=== PATIENT | male | born 1940 | race Caucasian/White ===

== ENCOUNTER 2017-06-09 14:56 | Inpatient (IN) | payer MEDICARE, OTHER ==
[~2017-06-09] VITALS: Ht 157.5 cm; Wt 128.3 kg
[2017-06-09] VITALS (9 sets, daily range): BP systolic 102–170; BP diastolic 57–109; PULSE 70–80; RESP 14–18; TEMP 97.9; O2SAT 96–98
[~2017-06-09 14:56] MED LIST: ACET325 PO; ALUM5LIQ PO; ARIC10TA PO; B-12500T3 PO; BISA10SU8 PR; BROV15NE NEB; BUDE0.5S NEB; CARB0.5D16 EACH EYE; DUONI NEB; FLEEENE3 PR; HALO0.5T PO; LISI-360 PO; LOPE1TAB9 PO; LORA-392 PO; LOVA20TA PO; MAGN30S PO; MONT10TA2 PO; OMEP20TA PO; PROC1TAB8 PO; SALI0.652 EACH NARE; TRAZ50TA4 PO; VITA100017 PO; VITA20002 PO; WAL-10TA2 PO
[2017-06-09] MEDS ORDERED: SODIUM CHLOR 0.9% 1000 ML INJ 1,000 ML IV ONE (14:59)
--- NOTE | 2017-06-09 15:05 | PD ---
HPI Chief Complaint: stroke alert Time Seen by Provider: 14:59 Travel History International Travel<30 days: No Contact w/Intl Traveler<30days: No History of Present Illness HPI The patient arrives by EMS. Age 77. He was found to be weak in the left side and to have a left facial droop and have disorganized speech. EMS reports weakness in the left upper extremity and left facial droop. Patient was last seen normal 1 hour prior to ER arrival. Timing constant. Onset sudden. No modifying factor. Patient has a history of prostate cancer and bladder cancer with a urostomy and possible history of atrial fibrillation however takes no anticoagulants. Evidently patient lives in an CUSTODIAL due to incontinence. PFSH Past Medical History Anemia: Yes Arthritis: No Asthma: No Atrial Fibrillation: Yes Blood Disorders: No Heart Rhythm Problems: No Cancer: Yes (, prostate) Cardiovascular Problems: No High Cholesterol: No Chemotherapy: No Chest Pain: No Congestive Heart Failure: No COPD: No Cerebrovascular Accident: No Diabetes: No Diminished Hearing: Yes Endocrine: No GERD: No Glaucoma: No Genitourinary: Yes (INABILITY TO URINATE.urostomy) Headaches: No Hepatitis: No Hiatal Hernia: No Hypertension: Yes Immune Disorder: No Kidney Stones: No Musculoskeletal: No Neurologic: No Psychiatric: No Reproductive: No Respiratory: Yes (SLEEP APNEA) Migraines: No Radiation Therapy: No Renal Failure: No Seizures: No Sleep Apnea: Yes Thyroid Disease: No Ulcer: No Past Surgical History Abdominal Surgery: Yes (HERNIA, PARTIAL COLON REMOVAL) Appendectomy: No Cardiac Surgery: No Cholecystectomy: No Ear Surgery: No Endocrine Surgery: No Eye Surgery: No Genitourinary Surgery: Yes (REPEATED BLADDER SCRAPINGS, PROSTATECTOMY AND BLADDER REMOVED) Gynecologic Surgery: No Oral Surgery: No Pacemaker: No Thoracic Surgery: No Other Surgery: Yes (UROSTOMY PLACEMENT) Social History Alcohol Use: No Tobacco Use: No Substance Use: No Allergies-Medications (Allergen,Severity, Reaction): Coded Allergies: penicillin G (Unverified Allergy, Severe, as a child, 01/24/17) Reported Meds & Prescriptions Reported Meds & Active Scripts Active Reported Budesonide Neb 0.5 Mg/2 Ml Neb 0.5 Mg NEB Q12HR NEB Lisinopril 10 Mg Tab 10 Mg PO DAILY Singulair (Montelukast Sodium) 10 Mg Tab 10 Mg PO HS Lovastatin 20 Mg Tab 20 Mg PO DAILY Maalox Maximum Strength Susp (Mag Hydrox/Aluminum Hyd/Simeth) 400 Mg-400 Mg-40 Mg/5 Ml Oral.susp Proventil Hfa 6.7 GM Inh (Albuterol Sulfate) 90 Mcg/Act Aer 2 Puff INH Q6H PRN Vitamin D3 (Cholecalciferol) 1,000 Unit Cap 1,000 Units PO DAILY Vitamin C (Ascorbic Acid) 250 Mg Chew 500 Mg CHEW BID Vitamin B-12 (Cyanocobalamin) 1,000 Mcg Subl 1,000 Mcg SL DAILY Reguloid (Psyllium Hydrophilic Mucilloid) 48.57 % Pow Quetiapine (Quetiapine Fumarate) 25 Mg Tab 25 Mg PO BID Omeprazole 20 Mg Tab 20 Mg PO DAILY Namzaric (Memantine-Donepezil) 28-10 Mg Cap 1 Cap PO HS Trazodone (Trazodone HCl) 50 Mg Tab 50 Mg PO HS Polyethylene Glycol 3350 Powder (Polyethylene Glycol) 17 Gram Pow 17 Gm PO DAILY PRN Milk of Magnesia Liq (Magnesium Hydroxide) 400 Mg/5 Ml Susp 30 Ml PO Q6H PRN Lorazepam 0.5 Mg Tab 0.5 Mg PO Q8H PRN Claritin (Loratadine) 10 Mg Cap 10 Mg PO DAILY Imodium A-D (Loperamide HCl) 2 Mg Capsule 4 Mg PO DIRECTED PRN One capsule after each loose stool. Not to exceed 8 tablets per day. Review of Systems Except as stated in HPI: all other systems reviewed are Neg General / Constitutional: No: Fever Physical Exam Narrative GENERAL: 77-year-old male well-nourished well-developed SKIN: Warm and dry. HEAD: Atraumatic. Normocephalic. EYES: Pupils equal and round. No scleral icterus. No injection or drainage. ENT: No nasal bleeding or discharge. Mucous membranes pink and moist. NECK: Trachea midline. No JVD. CARDIOVASCULAR: Regular rate and rhythm. RESPIRATORY: No accessory muscle use. Clear to auscultation. Breath sounds equal bilaterally. GASTROINTESTINAL: Abdomen soft, non-tender, nondistended. Hepatic and splenic margins not palpable. MUSCULOSKELETAL: Extremities without clubbing, cyanosis, or edema. No obvious deformities. NEUROLOGICAL: There is facial droop on the left side. There is left arm weakness, 2 over 5. Right upper and right lower extremity normal. Left lower extremity weakness to her 5 present. Patient can speak yes and no clearly. PSYCHIATRIC: Appropriate mood and affect; insight and judgment normal. Data Data Last Documented VS Vital Signs Date Time Temp Pulse Resp B/P (MAP) Pulse Ox O2 Delivery O2 Flow Rate FiO2 06/09/17 16:45 80 14 109/59 (76) 96 Nasal Cannula 2.00 Orders Orders Diet Npo (06/09/17 Dinner) Activity Bed Rest (06/09/17 ) Electrocardiogram (06/09/17 ) I-Stat Creatinine (06/09/17 14:59) I-Stat Profile (06/09/17 14:59) Prothrombin Time / Inr (Pt) (06/09/17 14:59) Act Partial Throm Time (Ptt) (06/09/17 14:59) Complete Blood Count With Diff (06/09/17 14:59) Fibrinogen (06/09/17 14:59) Creatine Kinase (Cpk) (06/09/17 14:59) Troponin I (06/09/17 14:59) Ua Includes Microscopic (06/09/17 14:59) Drug Screen, Random Urine (06/09/17 14:59) Type And Screen (06/09/17 14:59) Ct Brain W/O Iv Contrast(Rout) (06/09/17 ) Consult Neurology (06/09/17 ) Blood Glucose (06/09/17 14:59) Ecg Monitoring (06/09/17 14:59) Neuro Checks Q2HX12,Q4H (06/09/17 14:59) Nursing Bedside Swallow Assess .ONCE (06/09/17 14:59) Iv Access Insert/Monitor (06/09/17 14:59) NPO (06/09/17 14:59) Oximetry (06/09/17 14:59) Oxygen Administration (06/09/17 14:59) Sodium Chlor 0.9% 1000 Ml Inj (Ns 1000 M (06/09/17 14:59) Resp Oxygen Chase C Titrat 1-4 L (06/09/17 14:59) Cath For Specimen (06/09/17 14:59) Cta Brain W Iv Contrast W 3d (06/09/17 15:05) Cta Neck W Iv Contrast W 3d (06/09/17 15:05) ^ Call Pharmacy (06/09/17 15:09) Nih Stroke Scale - Nihss .ONCE (06/09/17 15:09) Urinary Catheter Insert/Apply (06/09/17 15:09) Anticoagulant Alert (06/09/17 15:09) ^ Post Infusion Restrictions (06/09/17 15:09) ^ Medication Alert (06/09/17 15:09) Vital Signs (Adult) .As directed (06/09/17 15:09) Notify Dr: Blood Pressure (06/09/17 15:09) ^ Medication Alert (06/09/17 15:09) Alteplase Bolus (Activase Bolus) (06/09/17 15:15) Alteplase Drip (Activase Drip) (06/09/17 15:15) Sodium Chloride 0.9% Inj (Ns Inj) (06/09/17 15:15) Misc Nursing Information (06/09/17 15:15) Resp Oxygen Chase C Titrat 1-4 L (06/09/17 ) Ct Brain W/O Iv Contrast(Rout) (06/10/17 ) (Hub Use Only)In Phy Cons/Ref (06/09/17 ) Iohexol 350 Inj (Omnipaque 350 Inj) (06/09/17 15:24) Nih Stroke Scale - Nihss .As directed (06/09/17 16:12) Hemoglobin (Hgb) A1c (06/10/17 06:00) Lipid Profile (06/10/17 06:00) Consult Pt Eval & Treat (06/09/17 16:12) Ot Request For Service (06/09/17 16:12) Speech Therapy Consult-Eval/Tx (06/09/17 16:12) Consult Rehab Medicine (06/09/17 ) Case Management Consult (06/09/17 ) Scd Bilateral/Knee High TONE.QSHIFT (06/09/17 16:13) Sodium Chloride 0.9% Flush (Ns Flush) (06/09/17 21:00) Sodium Chloride 0.9% Flush (Ns Flush) (06/09/17 16:15) Consult Stroke Navigator (06/09/17 ) Echo 2d Comp With Doppler (06/09/17 ) (Hub Use Only)Inp Phy Cons/Ref (06/09/17 ) Admit Order (Ed Use Only) (06/09/17 ) Black Puller / Telemetry TONE.Q8H (06/09/17 17:42) Vital Signs (Adult) Q4H (06/09/17 17:42) Activity Oob With Assistance (06/09/17 17:42) Labs Laboratory Tests Test 06/09/17 15:00 06/09/17 15:47 White Blood Count 9.7 TH/MM3 Red Blood Count 4.28 MIL/MM3 Hemoglobin 13.3 GM/DL Bedside Hemoglobin 13.9 G/DL Hematocrit 40.2 % Bedside Hematocrit 41.0 % Mean Corpuscular Volume 94.0 FL Mean Corpuscular Hemoglobin 31.1 PG Mean Corpuscular Hemoglobin Concent 33.1 % Red Cell Distribution Width 14.1 % Platelet Count 162 TH/MM3 Mean Platelet Volume 9.2 FL Neutrophils (%) (Auto) 68.3 % Lymphocytes (%) (Auto) 16.6 % Monocytes (%) (Auto) 12.1 % Eosinophils (%) (Auto) 2.1 % Basophils (%) (Auto) 0.9 % Neutrophils # (Auto) 6.6 TH/MM3 Lymphocytes # (Auto) 1.6 TH/MM3 Monocytes # (Auto) 1.2 TH/MM3 Eosinophils # (Auto) 0.2 TH/MM3 Basophils # (Auto) 0.1 TH/MM3 CBC Comment DIFF FINAL Differential Comment Prothrombin Time 10.4 SEC Prothromb Time International Ratio 1.0 RATIO Activated Partial Thromboplast Time 23.6 SEC Fibrinogen 424 mg/dL Bedside Sodium 138 MMOL/L Bedside Potassium 4.9 MMOL/L Bedside Chloride 97 MMOL/L Bedside Blood Urea Nitrogen 25 MG/DL Bedside Creatinine 1.4 MG/DL Bedside Glucose 134 MG/DL Total Creatine Kinase 125 U/L Troponin I LESS THAN 0.02 NG/ML Urine Color LIGHT-YELLOW Urine Turbidity HAZY Urine pH 7.5 Urine Specific [place] 1.043 Urine Protein TRACE mg/dL Urine Glucose (UA) NEG mg/dL Urine Ketones NEG mg/dL Urine Occult Blood TRACE Urine Nitrite NEG Urine Bilirubin NEG Urine Urobilinogen LESS THAN 2.0 MG/DL Urine Leukocyte Esterase LARGE Urine RBC 9 /hpf Urine WBC /hpf Urine WBC Clumps FEW Urine Bacteria OCC /hpf Urine Opiates Screen NEG Urine Barbiturates Screen NEG Urine Amphetamines Screen NEG Urine Benzodiazepines Screen NEG Urine Cocaine Screen NEG Urine Cannabinoids Screen NEG MDM Medical Screen Exam Complete: Yes Emergency Medical Condition: Yes Differential Diagnosis Ischemic stroke, hemorrhagic stroke, complex migraine Narrative Course Patient has an ischemic stroke. TPA started. Estimated NIH stroke scale of 67. Case discussed with Dr Martins. Case d/w Dr Coronel. CBC & BMP Diagram 06/09/17 15:00 Last Impressions Neck CTA 06/09/17 1505 Signed Impressions: Service Date/Time: Friday, June 09, 2017 15:04 - CONCLUSION: Total occlusion of the right internal carotid artery in the neck. Left carotid is free of stenosis. Vertebrals are patent bilaterally with incidental direct origin of the left vertebral artery from the aortic arch. Chaparro Mora MD Head CTA 06/09/17 1505 Signed Impressions: Service Date/Time: Friday, June 09, 2017 15:04 - CONCLUSION: 1. Occluded distal cervical and petrous segment of the right internal carotid artery. 2. Decreased flow in the right middle cerebral artery. 3. No evidence of proximal vascular occlusive disease involving the intracranial vessels. Cristian Holguin MD Head CT 06/09/17 0000 Signed Impressions: Service Date/Time: Friday, June 09, 2017 14:58 - CONCLUSION: No acute adrenal findings. Chaparro Mora MD Critical Care Narrative Aggregate critical care time was 50 minutes. Time to perform other separately billable procedures was not included in the critical care time. My time did not include minutes spent treating any other patients simultaneously or on activities that did not directly contribute to the patient's treatment. The services I provided to this patient were to treat and/or prevent clinically significant deterioration that could result in: Permanent deficit, intracranial hemorrhage I provided critical care services requiring my management, as noted below: Chart data review, documentation time, medication orders and management, vital sign assessments/reviewing monitor data, ordering and reviewing lab tests, ordering and interpreting/reviewing x-rays and diagnostic studies, care of the patient and discussion of the patient with the admitting physicians. Stroke Alert NIHSS NIH Stroke Scale Result: 7 NIHSS Time Completed: 07:00 Diagnosis Diagnosis: Primary Impression: CVA (cerebral vascular accident) Qualified Codes: I63.9 - Cerebral infarction, unspecified Additional Impression: Carotid occlusion, right Admitting Physician Requests: Admit Wilfredo Lopez MD Jun 09, 2017 15:05
[2017-06-09] MEDS ORDERED: MISCELLANEOUS NURSING INFORMATION XX PRN (15:15)
[2017-06-09] MEDS ORDERED: ALTEPLASE BOLUS 9 MG/9 ML SYR IV ONE (15:15)
[2017-06-09] MEDS ORDERED: ALTEPLASE DRIP 81 MG in SYRINGE/BAG 1 EA IV ONE (15:15)
[2017-06-09] MEDS ORDERED: SODIUM CHLORIDE 0.9% 50 ML BAG IVF ONE (15:15)
--- NOTE | 2017-06-09 15:17 | RADRPT ---
EXAM DATE/TIME: 06/09/2017 14:58 [facility] COMPARISON: No previous studies available for comparison. INDICATIONS : Stroke alert,Left sided weakness, slurred speech. RADIATION DOSE: 69.15 CTDIvol (mGy) This report was called by Morgan to Dr Lopez at 1513 MEDICAL HISTORY : Cardiovascular disease. Hypertension. A Fib, ca prostate SURGICAL HISTORY : None. ENCOUNTER: Initial ACUITY: 2 days PAIN SCALE: Non-responsive LOCATION: cranial TECHNIQUE: Multiple contiguous axial images were obtained of the head. Using automated exposure control and adj ustment of the mA and/or kV according to patient size, radiation dose was kept as low as reasonably a chievable to obtain optimal diagnostic quality images. DICOM format image data is available electro nically for review and comparison. FINDINGS: CEREBRUM: The ventricles are normal for age. No evidence of midline shift, mass lesion, hemorrhage or acute in farction. No extra-axial fluid collections are seen. POSTERIOR FOSSA: The cerebellum and brainstem are intact. The 4th ventricle is midline. The cerebellopontine angle i s unremarkable. EXTRACRANIAL: The visualized portion of the orbits is intact. SKULL: The calvaria is intact. No evidence of skull fracture. CONCLUSION: No acute adrenal findings. Chaparro Mora MD on June 09, 2017 at 15:12 Board Certified Radiologist. This report was verified electronically.
[2017-06-09 15:19] LABS: AUTOMATED NEUTROPHIL # 6.6 TH/MM3 (1.8-7.7); BASOPHIL # 0.1 TH/MM3 (0-0.2); BASOPHIL % 0.9 % (0.0-2.0); EOSINOPHIL # 0.2 TH/MM3 (0-0.4); EOSINOPHIL % 2.1 % (0.0-4.0); HEMATOCRIT 40.2 % (39.0-51.0); HEMOGLOBIN 13.3 GM/DL (13.0-17.0); LYMPH % 16.6 % (9.0-44.0); LYMPHOCYTE # 1.6 TH/MM3 (1.0-4.8); MEAN CORPUSCULAR HEMOGLOBIN 31.1 PG (27.0-34.0); MEAN CORPUSCULAR HGB CONC 33.1 % (32.0-36.0); MEAN PLATELET VOLUME 9.2 FL (7.0-11.0); MONO % 12.1 % (0.0-8.0); MONOCYTE # 1.2 TH/MM3 (0-0.9); NEUT % 68.3 % (16.0-70.0); PLATELET COUNT 162 TH/MM3 (150-450); RED BLOOD COUNT 4.28 MIL/MM3 (4.50-5.90); RED CELL DISTRIBUTION WIDTH 14.1 % (11.6-17.2); WHITE BLOOD COUNT 9.7 TH/MM3 (4.0-11.0)
[2017-06-09] MEDS ORDERED: IOHEXOL 350 MG/ML 10 ML VIAL (for RAD DIAG) IVCONTRAST ONE (15:24)
[2017-06-09 15:32] LABS: PROTHROMBIN TIME - PATIENT 10.4 SEC (9.8-11.6)
[2017-06-09 15:43] LABS: TROPONIN I LESS THAN 0.02 NG/ML (0.02-0.05)
--- NOTE | 2017-06-09 15:54 | RADRPT ---
EXAM DATE/TIME: 06/09/2017 15:04 [facility] COMPARISON: No previous studies available for comparison. INDICATIONS : Stroke alert, left sided weakness, slurred speech. IV CONTRAST: 75 cc Omnipaque 350 (iohexol) IV ; Cumulative dose for multiple exams. RADIATION DOSE: 137.36 CTDIvol (mGy) ; Combined studies MEDICAL HISTORY : Cardiovascular disease. Hypertension. a FIB SURGICAL HISTORY : None. ENCOUNTER: Initial ACUITY: 1 day PAIN SCALE: 0/10 LOCATION: cranial TECHNIQUE: Volumetric scanning was performed using a multi-row detector CT scanner. The data was post processed with a variety of visualization algorithms including full volume maximum intensity projection, multi -planar sliding thin slab reformation, curved planar reformation, and surface rendering techniques. Using automated exposure control and adjustment of the mA and/or kV according to patient size, radiat ion dose was kept as low as reasonably achievable to obtain optimal diagnostic quality images. DICO M format image data is available electronically for review and comparison. FINDINGS: There is excellent visualization of the major intracranial arteries out to the second-order branch ve ssels. Scratch that The distal cervical and petrous segment of the right internal carotid artery are occluded. The intrac ranial segment of the right internal carotid artery reconstitutes in the cavernous segment. Relative decreased flow was identified in the right no cerebral artery. The intracranial vessels are otherwise patent without proximal destructive disease or intraluminal filling defects. Vertebral basilar circulation is patent. CONCLUSION: 1. Occluded distal cervical and petrous segment of the right internal carotid artery. 2. Decreased flow in the right middle cerebral artery. 3. No evidence of proximal vascular occlusive disease involving the intracranial vessels. Cristian Holguin MD on June 09, 2017 at 15:46 Board Certified Radiologist. This report was verified electronically.
--- NOTE | 2017-06-09 16:08 | RADRPT ---
EXAM DATE/TIME: 06/09/2017 15:04 [facility] COMPARISON: No previous studies available for comparison. INDICATIONS : Stroke alert, left sided weakness, slurred speech. IV CONTRAST: 100 cc Visipaque (iodixanol) IV RADIATION DOSE: 137.36 CTDIvol (mGy) ; Patient body habitus MEDICAL HISTORY : Cardiovascular disease. Hypertension. Afib, ca prostate SURGICAL HISTORY : None. ENCOUNTER: Initial ACUITY: 1 day PAIN SCALE: 0/10 LOCATION: neck Elevated flow velocities and ICA/CCA ratios have been found to correlate with increased degrees of vessel stenosis, calculated as percentage of diameter relative to a normal segment of distal ICA/CCA. TECHNIQUE: Volumetric scanning was performed using a multirow detector CT scanner. The data was post processed with a variety of visualization algorithms including full-volume maximum intensity projection, multip lanar sliding thin-slab reformation, curved-planar reformation, and surface-rendering techniques. Us ing automated exposure control and adjustment of the mA and/or kV according to patient size, radiatio n dose was kept as low as reasonably achievable to obtain optimal diagnostic quality images. DICOM f ormat image data is available electronically for review and comparison. FINDINGS: AORTIC ARCH: Variant arch anatomy is identified with direct origin of the left vertebral artery from the aortic ar ch. The arch vessels appear widely patent. RIGHT CAROTID: The right internal carotid artery is totally occluded at its origin. Flow appears to reconstitute in the supraclinoid carotid. See report of [facility] [place] [facility] [place] for additional details. LEFT CAROTID: The left carotid bifurcation is notable for minimal intimal calcification. No significant stenotic na rrowing. Left ICA is widely patent throughout. VERTEBRALS: The vertebral arteries have a symmetric diameter. No stenotic lesions are seen. CONCLUSION: Total occlusion of the right internal carotid artery in the neck. Left carotid is free of stenosis. V ertebrals are patent bilaterally with incidental direct origin of the left vertebral artery from the aortic arch. Chaparro Mora MD on June 09, 2017 at 16:03 Board Certified Radiologist. This report was verified electronically.
[2017-06-09] MEDS ORDERED: SODIUM CHLORIDE 0.9% FLUSH 10 ML FLUSH IV FLUSH PRN (16:15)
[2017-06-09 16:16] LABS: BACTERIA, URINE OCC /hpf; BILIRUBIN, URINE NEG (NEG); BLOOD, URINE TRACE (NEG); GLUCOSE,URINE NEG (NEG); KETONE, URINE NEG (NEG); NITRITE,URINE NEG (NEG); PH, URINE 7.5 (5.0-8.5); URINE COLOR LIGHT-YELLOW (YELLW/STRAW); URINE LEUKOCYTE ESTERASE LARGE (NEG); WHITE BLOOD CELL CLUMPS FEW
--- NOTE | 2017-06-09 17:13 | MB ---
cc: BRIJESH POLK M.D. DATE OF CONSULTATION: 06/09/2017 DATE OF : 1940, 77 years old. REASON FOR CONSULTATION: Stroke HISTORY: This is a pleasant 77-year-old man found to be weak, he lives in a [facility] on the left side with facial droop brought in, he was 1 hour prior to arrival onset. Was found by staff here in the hospital as well as with left-sided hemiparesis. The patient had a head CT of the brain and given his symptoms was started on TPA. He received his bolus and now he is getting his maintenance infusion. He has a history of prostate cancer, bladder cancer. He has a urostomy questionable history of Atrial fibrillation, sleep apnea. Maybe some mild cognitive impairment. Apparently states he was a [facility] per chart notes. He has been there for a few years because of his bladder issues. MEDICATIONS: Please refer to his EMR. But he is on multiple medications, in looking at his list I do not see any antiplatelets. He is on Aricept <<1:44>> B12 Budesonide inhalation Ativan as needed Haldol 1/2 mg daily. Lisinopril Loratadine Compazine. SOCIAL HISTORY Does not smoke, drink or use drugs. ALLERGIES PENICILLIN PHYSICAL EXAMINATION: VITAL SIGNS: Temperature not taken, pulse 72, respiratory rate 14, blood pressure 161/70 satting at 97% room air. NECK: The neck is supple. HEART: The heart is regular. CHEST: Lungs are distant. . NEUROLOGIC: He is awake and alert, his speech to me is fluent. His pupils reactive. His face is symmetrical. Tongue is midline. Visual lopez are full. Motor dc he has minimal weakness now on the left upper extremity with mild drift. There is no significant leg lag. DTRs are trace to 1+. Toes withdraws. Sensory can feel light touch and temperature left-sided right side is intact. Cerebellar normal gait is withheld at this time. LABORATORY FINDINGS: Labs are reviewed. His CBC hemoglobin 13.3 white count 9.7, platelets 162,000. His chemistries are reviewed. His BUN is in his 25, creatinine 1.4, glucose 134. Cardiac enzymes negative. CK 125. Coag panel is unremarkable. Toxicology is pending. His urine is pending. IMAGING STUDIES CT of the head did not show anything that acute. Head CTA however, showed occluded distal cervical and <<3:27>> segment of the right ICA also decreased lower right MCA. No evidence of proximal vascular occlusion. His carotid CTA report is still pending. IMPRESSION Left hemiparesis likely due to stroke in a 77-year-old man with multiple risk factors. RECOMMENDATIONS: Recommendations are to continue his TPA, since he is improving. There was no contraindication to giving it fortunately he was in a window of opportunity, check a lipid panel, check hemoglobin A1c. We will check an MRI tomorrow, a 2-D echo. Maintain SCDs. No antiplatelets, no anticoagulation for [address] 24 hours, post TPA stat should his condition worsen. PT, OT, speech therapy evaluation, fluids normal saline 70 cc an hour, head of bed flat for 24 hours if he can tolerate, he is a fairly large man with a small neck he may have trouble breathing and so go ahead and put him at 30 degrees. He does have a history of sleep apnea. He has C-PAP, please restart his C-PAP, I will have respiratory do that. Continue post TPA orders and consults to <<4:58>> . MD KITA Mahoney/isiah /3:56 PM /4:34 PM
[2017-06-09] MEDS ORDERED: MILKSUS PO (17:50)
[2017-06-09] MEDS ORDERED: VITA250C3 CHEW (17:50)
[2017-06-09] MEDS ORDERED: MAALSUS17 (17:50)
[2017-06-09] MEDS ORDERED: CLAR10CA3 PO (17:50)
[2017-06-09] MEDS ORDERED: REGU50PO (17:50)
[2017-06-09] MEDS ORDERED: BUDE0.5S NEB (17:50)
[2017-06-09] MEDS ORDERED: VITA100021 SL (17:50)
[2017-06-09] MEDS ORDERED: ALBU6.7H INH (17:50)
[2017-06-09] MEDS ORDERED: CHOL10008 PO (17:50)
[2017-06-09] MEDS ORDERED: POLY17S PO (17:50)
[2017-06-09] MEDS ORDERED: OMEP20TA93 PO (17:50)
[2017-06-09] MEDS ORDERED: LOPE-1 PO (17:50)
[2017-06-09] MEDS ORDERED: LISI10TA3 PO (17:50)
[2017-06-09] MEDS ORDERED: LORA0.5T PO (17:50)
[2017-06-09] MEDS ORDERED: TRAZ50TA12 PO (17:50)
[2017-06-09] MEDS ORDERED: MEMA1CAP2 PO (17:50)
[2017-06-09] MEDS ORDERED: MONT10TA2 PO (17:50)
[2017-06-09] MEDS ORDERED: LOVA20TA PO (17:50)
[2017-06-09] MEDS ORDERED: QUET1TAB7 PO (17:50)
[2017-06-09] MEDS: SODIUM CHLOR 0.9% 1000 ML INJ 1,000 ML IV SCH (17:51)
--- NOTE | 2017-06-09 17:53 | HHI.HP ---
[facility] Service Critical Care Medicine Primary Care Physician David Lopez M.D. Admission Diagnosis Ischemic CVA Diagnosis: Chief Complaint: Left arm weakness Travel History International Travel<30 Days: No Contact w/Intl Traveler <30 Da: No History of Present Illness This is a 77-year-old male with history of prostate cancer and bladder cancer who presented with left-sided facial droop and left-sided arm weakness. His last seen normal time was 13:30. He was evaluated in the emergency department and found to have an NIH stroke scale of 7. His noncontrasted head CT was negative for acute bleed. Due to his neurologic deficits consultation with Dr. mcintyre, and the patient was started on TPA at15:45. I evaluated the patient and the emergency department. His facial droop and almost completely resolved and his left arm weakness was persistent but was improved from prior documented neurologic exam. The patient denies any other symptoms of weakness or numbness on his body. Patient denies any chest pain, shortness breath, fever, chills, nausea,, vomiting, abdominal pain. Remainder of review of systems is negative. Review of Systems Constitutional: DENIES: Diaphoretic episodes, Fatigue, Fever, Chills Eyes: DENIES: Blurred vision, Diplopia, Double Vision Ears, nose, mouth, throat: DENIES: Vertigo Respiratory: DENIES: Apneas, Cough, Snoring, Wheezing, Hemoptysis, Sputum production, Shortness of breath Cardiovascular: DENIES: Chest pain, Palpitations, Syncope, Dyspnea on Exertion , PND, Lower Extremity Edema, Orthopnea Gastrointestinal: DENIES: Abdominal pain, Constipation, Diarrhea, Nausea, Vomiting Neurologic: COMPLAINS OF: Localized weakness, Speech Problems, DENIES: Abnormal gait, Headache, Paresthesias, Seizures Psychiatric: DENIES: Anxiety, Confusion Past Family Social History Allergies: Coded Allergies: penicillin G (Unverified Allergy, Severe, as a child, 01/24/17) Past Medical History Anemia Atrial fibrillation Prostate cancer Bladder cancer Urostomy Hypertension Sleep apnea Morbid obesity Past Surgical History Partial colon resection Hernia repair Prostatectomy Cystectomy with ileoconduit Reported Medications Budesonide Neb 0.5 Mg/2 Ml Neb 0.5 Mg NEB Q12HR NEB Lisinopril 10 Mg Tab 10 Mg PO DAILY Singulair (Montelukast Sodium) 10 Mg Tab 10 Mg PO HS Lovastatin 20 Mg Tab 20 Mg PO DAILY Maalox Maximum Strength Susp (Mag Hydrox/Aluminum Hyd/Simeth) 400 Mg-400 Mg-40 Mg/5 Ml Oral.susp Proventil Hfa 6.7 GM Inh (Albuterol Sulfate) 90 Mcg/Act Aer 2 Puff INH Q6H PRN Vitamin D3 (Cholecalciferol) 1,000 Unit Cap 1,000 Units PO DAILY Vitamin C (Ascorbic Acid) 250 Mg Chew 500 Mg CHEW BID Vitamin B-12 (Cyanocobalamin) 1,000 Mcg Subl 1,000 Mcg SL DAILY Reguloid (Psyllium Hydrophilic Mucilloid) 48.57 % Pow Quetiapine (Quetiapine Fumarate) 25 Mg Tab 25 Mg PO BID Omeprazole 20 Mg Tab 20 Mg PO DAILY Namzaric (Memantine-Donepezil) 28-10 Mg Cap 1 Cap PO HS Trazodone (Trazodone HCl) 50 Mg Tab 50 Mg PO HS Polyethylene Glycol 3350 Powder (Polyethylene Glycol) 17 Gram Pow 17 Gm PO DAILY PRN Milk of Magnesia Liq (Magnesium Hydroxide) 400 Mg/5 Ml Susp 30 Ml PO Q6H PRN Lorazepam 0.5 Mg Tab 0.5 Mg PO Q8H PRN Claritin (Loratadine) 10 Mg Cap 10 Mg PO DAILY Imodium A-D (Loperamide HCl) 2 Mg Capsule 4 Mg PO DIRECTED PRN One capsule after each loose stool. Not to exceed 8 tablets per day. Active Ordered Medications See MAR Family History Review with patient and found to be noncontributory to his acute illness Social History Denies tobacco, EtOH, drugs of abuse Physical Exam Vital Signs Vital Signs Date Time Temp Pulse Resp B/P (MAP) Pulse Ox O2 Delivery O2 Flow Rate FiO2 06/09/17 16:45 80 14 109/59 (76) 96 Nasal Cannula 2.00 06/09/17 16:30 78 14 102/59 (73) 97 Nasal Cannula 2.00 06/09/17 16:15 72 14 137/62 (87) 97 Nasal Cannula 2.00 06/09/17 16:00 76 14 151/109 (123) 98 Nasal Cannula 2.00 06/09/17 15:40 73 14 161/70 (100) 97 Room Air 06/09/17 15:00 98 Nasal Cannula 2.00 06/09/17 15:00 98 Nasal Cannula 3.00 06/09/17 15:00 98 Nasal Cannula 2.00 06/09/17 15:00 78 18 97 Room Air Physical Exam GENERAL: Morbidly obese male, lying in bed HEENT: Normocephalic. Atraumatic. Pupils 3 millimeters, equal, round, reactive , conjugate. Mucous membranes are moist NECK: Trachea is midline. Unable to assess JVD due to body habitus. CHEST: Equal chest rise. Room air. CARDIOVASCULAR: Normal rate, regular rhythm. Sinus by telemetry ABDOMEN: Morbidly obese, Soft, nontender, nondistended. No guarding. MUSCULOSKELETAL: Pulses 2+. No peripheral edema. NEUROLOGICAL: RASS 0. GCS 15. CAM -. Muscle skeletal strength is 5/5 right upper and lower extremities. Musculoskeletal strength 4/5 in the right upper extremity, weaker proximally than distally, 5/5 in the right lower extremity. There is no appreciable facial droop at the time of my examination. No appreciable dysarthria. Expressive and receptive language appear to be grossly intact. Cranial nerves II through XII grossly intact. No gross sensory deficits. Laboratory Laboratory Tests Test 06/09/17 15:00 06/09/17 15:47 White Blood Count 9.7 Red Blood Count 4.28 Hemoglobin 13.3 Bedside Hemoglobin 13.9 Hematocrit 40.2 Bedside Hematocrit 41.0 Mean Corpuscular Volume 94.0 Mean Corpuscular Hemoglobin 31.1 Mean Corpuscular Hemoglobin Concent 33.1 Red Cell Distribution Width 14.1 Platelet Count 162 Mean Platelet Volume 9.2 Neutrophils (%) (Auto) 68.3 Lymphocytes (%) (Auto) 16.6 Monocytes (%) (Auto) 12.1 Eosinophils (%) (Auto) 2.1 Basophils (%) (Auto) 0.9 Neutrophils # (Auto) 6.6 Lymphocytes # (Auto) 1.6 Monocytes # (Auto) 1.2 Eosinophils # (Auto) 0.2 Basophils # (Auto) 0.1 CBC Comment DIFF FINAL Differential Comment Prothrombin Time 10.4 Prothromb Time International Ratio 1.0 Activated Partial Thromboplast Time 23.6 Fibrinogen 424 Bedside Sodium 138 Bedside Potassium 4.9 Bedside Chloride 97 Bedside Blood Urea Nitrogen 25 Bedside Creatinine 1.4 Bedside Glucose 134 Total Creatine Kinase 125 Troponin I LESS THAN 0.02 Urine Color LIGHT-YELLOW Urine Turbidity HAZY Urine pH 7.5 Urine Specific [place] 1.043 Urine Protein TRACE Urine Glucose (UA) NEG Urine Ketones NEG Urine Occult Blood TRACE Urine Nitrite NEG Urine Bilirubin NEG Urine Urobilinogen LESS THAN 2.0 Urine Leukocyte Esterase LARGE Urine RBC 9 Urine WBC Urine WBC Clumps FEW Urine Bacteria OCC Urine Opiates Screen NEG Urine Barbiturates Screen NEG Urine Amphetamines Screen NEG Urine Benzodiazepines Screen NEG Urine Cocaine Screen NEG Urine Cannabinoids Screen NEG Result Diagram: 06/09/17 1500 Imaging Last Impressions Neck CTA 06/09/17 1505 Signed Impressions: Service Date/Time: Friday, June 09, 2017 15:04 - CONCLUSION: Total occlusion of the right internal carotid artery in the neck. Left carotid is free of stenosis. Vertebrals are patent bilaterally with incidental direct origin of the left vertebral artery from the aortic arch. Chaparro Mora MD Head CTA 06/09/17 1505 Signed Impressions: Service Date/Time: Friday, June 09, 2017 15:04 - CONCLUSION: 1. Occluded distal cervical and petrous segment of the right internal carotid artery. 2. Decreased flow in the right middle cerebral artery. 3. No evidence of proximal vascular occlusive disease involving the intracranial vessels. Cristian Holguin MD Head CT 06/09/17 0000 Signed Impressions: Service Date/Time: Friday, June 09, 2017 14:58 - CONCLUSION: No acute adrenal findings. Chaparro Mora MD [place] VTE Risk Assessment Caprini VTE Risk Assessment: Mod/High Risk (score >= 2) Caprini Risk Assessment Model Point Value = 1 Point Value = 2 Point Value = 3 Point Value = 5 Age 41-60 Minor surgery BMI > 25 kg/m2 Swollen legs Varicose veins or History of unexplained or recurrent spontaneous Oral contraceptives or hormone replacement Sepsis (< 1 month) Serious lung disease, including pneumonia (< 1 month) Abnormal pulmonary function Acute myocardial infarction Congestive heart failure (< 1 month) History of inflammatory bowel disease Medical patient at bed rest Age 61-74 Arthroscopic surgery Major open surgery (> 45 min) Laparoscopic surgery (> 45 min) Malignancy Confined to bed (> 72 hours) Immobilizing plaster cast Central venous access Age >= 75 History of VTE Family history of VTE Factor V Leiden Prothrombin [id number] Lupus anticoagulant Anticardiolipin antibodies Elevated serum homocysteine Heparin-induced thrombocytopenia Other congenital or acquired thrombophilia Stroke (< 1 month) Elective arthroplasty Hip, pelvis, or leg fracture Acute spinal cord injury (< 1 month) Prophylaxis Regimen Total Risk Factor Score Risk Level Prophylaxis Regimen 0-1 Low Early ambulation 2 Moderate Order ONE of the following: *Sequential Compression Device (SCD) *Heparin 5000 units SQ BID 3-4 Higher Order ONE of the following medications: *Heparin 5000 units SQ TID *Enoxaparin/Lovenox 40 mg SQ daily (WT < 150 kg, CrCl > 30 mL/min) *Enoxaparin/Lovenox 30 mg SQ daily (WT < 150 kg, CrCl > 10-29 mL/min) *Enoxaparin/Lovenox 30 mg SQ BID (WT < 150 kg, CrCl > 30 mL/min) AND/OR *Sequential Compression Device (SCD) 5 or more Highest Order ONE of the following medications: *Heparin 5000 units SQ TID (Preferred with Epidurals) *Enoxaparin/Lovenox 40 mg SQ daily (WT < 150 kg, CrCl > 30 mL/min) *Enoxaparin/Lovenox 30 mg SQ daily (WT < 150 kg, CrCl > 10-29 mL/min) *Enoxaparin/Lovenox 30 mg SQ BID (WT < 150 kg, CrCl > 30 mL/min) AND *Sequential Compression Device (SCD) Assessment and Plan Assessment and Plan Assessment: 77yM with new acute neurologic deficits or new CVA now status post IV TPA. I've spoken with invasive radiology and given his low NIH stroke scale and the degree of right ICA stenosis, any endovascular intervention would only worsen his overall outcome. We will admit the ICU for frequent neuro checks and interval head CT. We'll complete the stroke workup. Right ICA occlusion Acute CVA frequent neuro checks 2d echo lipid panel statin if indicated ASA tomorrow repeat head CT 24h after TPA nursing bedside swallow eval prior to PO. advance diet after swallow eval wean o2 for goal spo2 > 92% Neuro consult Obstructive Sleep Apnea wean o2 for goal spo2 > 92% may need BiPAP overnight if hypoxic aggressive pulmonary toilet Admit to ICU. Michael Coronel MD Jun 09, 2017 17:53
[2017-06-09] MEDS ORDERED: POTASSIUM CHLORIDE 25 MEQ EFFERVESCENT TAB PO PRN (18:00)
[2017-06-09] MEDS ORDERED: MAGNESIUM SULFATE INJ 2 GM in SODIUM CHLORIDE 0.9% INJ 96 ML IV PRN (18:00)
[2017-06-09] MEDS ORDERED: ONDANSETRON HCL 4 MG/2 ML VIAL IV PUSH PRN (18:00)
[2017-06-09] MEDS ORDERED: POTASSIUM PHOSPHATE INJ 30 MMOL in SODIUM CHLOR 0.9% 250 ML INJ 250 ML IV PRN (18:00)
[2017-06-09] MEDS ORDERED: MAGNESIUM HYDROXIDE SUSP 30 ML CUP PO PRN (18:00)
[2017-06-09] MEDS ORDERED: CHLORHEXIDINE GLUCONATE 2 % 1 PACK (2 CLOTHS) TOP PRN (18:00)
[2017-06-09] MEDS ORDERED: POTASSIUM CHLOR 20 MEQ PREMIX 100 ML IV PRN ×2 (18:00)
[2017-06-09] MEDS ORDERED: MAGNESIUM OXIDE 400 MG TAB PO PRN (18:00)
[2017-06-09] MEDS ORDERED: DEXTROSE 50% IN WATER 50 ML VIAL(D50) IV PUSH PRN (18:00)
[2017-06-09] MEDS ORDERED: POTASSIUM CHLOR 40 MEQ PREMIX 100 ML IV PRN ×2 (18:00)
[2017-06-09] MEDS ORDERED: LABETALOL HCL 100 MG/20 ML VIAL IV PUSH PRN (18:00)
[2017-06-09] MEDS ORDERED: MAGNESIUM SULFATE INJ 4 GM in SODIUM CHLORIDE 0.9% INJ 92 ML IV PRN (18:00)
[2017-06-09] MEDS ORDERED: RESP: ALBUTEROL 2.5 MG/IPRATROPIUM 0.5 MG NEB (PRN) INH (18:00)
[2017-06-09] MEDS ORDERED: POTASSIUM PHOSPHATE MONOBASIC 500 MG TAB PO PRN (18:00)
[2017-06-09] MEDS ORDERED: MISCELLANEOUS NURSING INFORMATION XX SCH (18:00)
[2017-06-09] MEDS ORDERED: hydrALAZINE HCL 20 MG/ML VIAL IV PUSH PRN (18:00)
[2017-06-09] MEDS ORDERED: POTASSIUM PHOSPHATE MONOBASIC 500 MG TAB PO/TUBE PRN (18:00)
[2017-06-09] MEDS ORDERED: SODIUM PHOSPHATE INJ 30 MMOL in SODIUM CHLOR 0.9% 250 ML INJ 240 ML IV PRN (18:00)
[2017-06-09] MEDS: INSULIN NovoLIN REGULAR SUPPLEMENTAL SCALE SQ SCH (20:29)
[2017-06-09] MEDS: SODIUM CHLORIDE 0.9% FLUSH 10 ML FLUSH IV FLUSH SCH (21:00)
[2017-06-09] MEDS: DOCUSATE SODIUM 50 MG/SENNA 8.6 MG TAB PO SCH (21:00)
[2017-06-10] VITALS (12 sets, daily range): BP systolic 94–152; BP diastolic 46–68; PULSE 63–84; RESP 16–24; TEMP 97.9–99; O2SAT 94–98
[2017-06-10] MEDS: INSULIN NovoLIN REGULAR SUPPLEMENTAL SCALE SQ SCH ×5 (03:00→21:00)
[2017-06-10] MEDS: CHLORHEXIDINE GLUCONATE 2 % 1 PACK (2 CLOTHS) TOP SCH (04:00)
[2017-06-10 05:24] LABS: HEMATOCRIT 36.9 % (39.0-51.0); HEMOGLOBIN 12.5 GM/DL (13.0-17.0); MEAN CELL VOLUME 93.5 FL (80.0-100.0); MEAN CORPUSCULAR HEMOGLOBIN 31.7 PG (27.0-34.0); MEAN CORPUSCULAR HGB CONC 33.9 % (32.0-36.0); MEAN PLATELET VOLUME 9.7 FL (7.0-11.0); PLATELET COUNT 158 TH/MM3 (150-450); RED BLOOD COUNT 3.95 MIL/MM3 (4.50-5.90); RED CELL DISTRIBUTION WIDTH 14.1 % (11.6-17.2); WHITE BLOOD COUNT 8.8 TH/MM3 (4.0-11.0)
[2017-06-10] MEDS: SODIUM CHLOR 0.9% 1000 ML INJ 1,000 ML IV SCH ×2 (05:41→17:45)
[2017-06-10 05:43] LABS: CHOLESTEROL 109 MG/DL (120-200); TRIGLYCERIDES 70 MG/DL (42-150)
[2017-06-10 05:44] LABS: CHOLESTEROL/ HDL RATIO 3.01 RATIO; HDL CHOLESTEROL 36.2 MG/DL (40.0-60.0); LDL CHOLESTEROL 59 MG/DL (0-99)
[2017-06-10 05:51] LABS: BICARBONATE 30.8 MEQ/L (21.0-32.0); CALCIUM 8.4 MG/DL (8.5-10.1); CREATININE 0.9 MG/DL (0.60-1.30)
[2017-06-10] MEDS: DOCUSATE SODIUM 50 MG/SENNA 8.6 MG TAB PO SCH ×2 (08:18→20:57)
[2017-06-10] MEDS: SODIUM CHLORIDE 0.9% FLUSH 10 ML FLUSH IV FLUSH SCH ×2 (08:18→20:58)
--- NOTE | 2017-06-10 11:42 | HHI.CCPN ---
Subjective Remarks/Hospital Course This is a 77-year-old male with history of prostate cancer and bladder cancer who presented with left-sided facial droop and left-sided arm weakness. His last seen normal time was 13:30. He was evaluated in the emergency department and found to have an NIH stroke scale of 7. His noncontrasted head CT was negative for acute bleed. Due to his neurologic deficits consultation with Dr. mcintyre, and the patient was started on TPA at15:45. I evaluated the patient and the emergency department. His facial droop and almost completely resolved and his left arm weakness was persistent but was improved from prior documented neurologic exam. The patient denies any other symptoms of weakness or numbness on his body. Patient denies any chest pain, shortness breath, fever, chills, nausea,, vomiting, abdominal pain. Remainder of review of systems is negative. 06/10: Good response to tPA. BP well controlled. Objective Vital Signs Date Time Temp Pulse Resp B/P (MAP) Pulse Ox O2 Delivery O2 Flow Rate FiO2 06/10/17 11:08 96 Nasal Cannula 3.00 06/10/17 10:00 73 06/10/17 08:00 98.1 22 143/66 (91) Intake and Output 06/10/17 06/10/17 06/11/17 08:00 16:00 00:00 Intake Total 2100 ml Output Total 1650 ml Balance 450 ml Result Diagram: 06/10/17 0427 06/10/17 0427 Imaging Last Impressions Neck CTA 06/09/17 1505 Signed Impressions: Service Date/Time: Friday, June 09, 2017 15:04 - CONCLUSION: Total occlusion of the right internal carotid artery in the neck. Left carotid is free of stenosis. Vertebrals are patent bilaterally with incidental direct origin of the left vertebral artery from the aortic arch. Chaparro Mora MD Head CTA 06/09/17 1505 Signed Impressions: Service Date/Time: Friday, June 09, 2017 15:04 - CONCLUSION: 1. Occluded distal cervical and petrous segment of the right internal carotid artery. 2. Decreased flow in the right middle cerebral artery. 3. No evidence of proximal vascular occlusive disease involving the intracranial vessels. Cristian Holguin MD Head CT 06/09/17 0000 Signed Impressions: Service Date/Time: Friday, June 09, 2017 14:58 - CONCLUSION: No acute adrenal findings. Chaparro Mora MD Objective Remarks GENERAL: Morbidly obese male, lying in bed HEENT: Normocephalic. Atraumatic. Pupils 3 millimeters, equal, round, reactive , conjugate. Mucous membranes are moist NECK: Trachea is midline. Unable to assess JVD due to body habitus. CHEST: Equal chest rise. Room air. CARDIOVASCULAR: Normal rate, regular rhythm. Sinus by telemetry ABDOMEN: Morbidly obese, Soft, nontender, nondistended. No guarding. MUSCULOSKELETAL: Pulses 2+. No peripheral edema. NEUROLOGICAL: RASS 0. GCS 15. CAM -. Muscle skeletal strength is 5/5 right upper and lower extremities. Musculoskeletal strength 4/5 in the right upper extremity, weaker proximally than distally, 5/5 in the right lower extremity. There is no appreciable facial droop. No appreciable dysarthria. Expressive and receptive language appear to be grossly intact. Cranial nerves II through XII grossly intact. No gross sensory deficits. A/P Assessment and Plan Assessment: 77yM with new acute neurologic deficits or new CVA now status post IV TPA. I've spoken with invasive radiology and given his low NIH stroke scale and the degree of right ICA stenosis, any endovascular intervention would only worsen his overall outcome. We will admit the ICU for frequent neuro checks and interval head CT. We'll complete the stroke workup. Right ICA occlusion Acute CVA frequent neuro checks 2d echo lipid panel statin if indicated ASA tomorrow repeat head CT 24h after TPA nursing bedside swallow eval prior to PO. advance diet after swallow eval wean o2 for goal spo2 > 92% Neuro consult -> done. Obstructive Sleep Apnea wean o2 for goal spo2 > 92% may need BiPAP overnight if hypoxic aggressive pulmonary toilet Overall impression: Stable respiratory and hemodynamic function. Improved neurological examination. Tim Barton MD Jun 10, 2017 11:42
[2017-06-10] MEDS ORDERED: ALBUTEROL SULFATE 90 MCG/ACT HFA 8 GM INHALER INH PRN (11:45)
[2017-06-10 12:21] LABS: HEMOGLOBIN A1C 5.9 % (4.3-6.0)
[2017-06-10] MEDS: LORazepam 0.5 MG TAB PO PRN ×2 (12:41→23:07)
--- NOTE | 2017-06-10 15:03 | HHI.PR ---
Subjective Remarks c/o left arm lack of movement left leg okay s/p tpa yesterday Objective Vital Signs Date Time Temp Pulse Resp B/P (MAP) Pulse Ox O2 Delivery O2 Flow Rate FiO2 06/10/17 12:00 72 06/10/17 12:00 99.0 72 20 152/68 (96) 94 06/10/17 11:08 96 Nasal Cannula 3.00 06/10/17 10:00 73 06/10/17 08:00 98.1 70 22 143/66 (91) 96 06/10/17 08:00 70 06/10/17 07:00 96 Nasal Cannula 2.00 06/10/17 06:00 63 06/10/17 04:00 97.9 82 24 106/46 (66) 95 06/10/17 04:00 84 06/10/17 02:00 68 06/10/17 00:00 97.9 80 24 94/52 (66) 95 06/10/17 00:00 80 06/09/17 22:00 75 06/09/17 20:00 97.9 76 18 170/66 (100) 98 06/09/17 19:15 06/09/17 18:45 70 14 114/57 (76) 97 Nasal Cannula 2.00 06/09/17 16:45 80 14 109/59 (76) 96 Nasal Cannula 2.00 06/09/17 16:30 78 14 102/59 (73) 97 Nasal Cannula 2.00 06/09/17 16:15 72 14 137/62 (87) 97 Nasal Cannula 2.00 06/09/17 16:00 76 14 151/109 (123) 98 Nasal Cannula 2.00 06/09/17 15:40 73 14 161/70 (100) 97 Room Air 06/09/17 15:00 98 Nasal Cannula 2.00 06/09/17 15:00 98 Nasal Cannula 3.00 06/09/17 15:00 98 Nasal Cannula 2.00 06/09/17 15:00 78 18 97 Room Air I/O 06/09/17 06/09/17 06/09/17 06/10/17 06/10/17 06/10/17 07:00 15:00 23:00 07:00 15:00 23:00 Intake Total 2100 ml Output Total 750 ml 1650 ml Balance -750 ml 450 ml Intake IV Total 1000 ml Lipid 1100 ml Output Urine Total 750 ml 1650 ml # Voids 0 Result Diagram: 06/10/1742606/10/17426 Objective Remarks awake alert speech fluent perrla motor lue 0/5 sensory intact lle 5/5 left toe w/d gait deferred at bedrest post tpa Assessment and Plan Assessment and Plan right sided stroke left hemiparesis right ica occlusion -s/p tpa-follow protocol ct at 24 h mri brain cta [place] done echo labs lipids ,hga1c lovenox post tpa 24h for dvt prevention now scds asa 81mg qd from tomorrow on PT-OT-Rehab eval. Zelda Martins MD Jun 10, 2017 15:03
--- NOTE | 2017-06-10 16:18 | RADRPT ---
EXAM DATE/TIME: 06/10/2017 15:55 [facility] COMPARISON: CT BRAIN W/O CONTRAST, January 26, 2014, 22:04. CT BRAIN W/O CONTRAST, June 09, 2017, 14:58. INDICATIONS : 24 HR post TPA, code stroke. RADIATION DOSE: 50.05 CTDIvol (mGy) ; Patient body habitus MEDICAL HISTORY : Cerebrovascular disease. Carcinoma, prostate. SURGICAL HISTORY : Partial colectomy, hernia ENCOUNTER: Initial ACUITY: 2 days PAIN SCALE: 0/10 LOCATION: cranial TECHNIQUE: Multiple contiguous axial images were obtained of the head. Using automated exposure control and adj ustment of the mA and/or kV according to patient size, radiation dose was kept as low as reasonably a chievable to obtain optimal diagnostic quality images. DICOM format image data is available electro nically for review and comparison. FINDINGS: There is no evidence for intracranial hemorrhage, mass effect, mass lesions, or edema. The visualize d bony structures appear intact. Slight degree of brain atrophy is seen. Slight periventricular whit e matter changes are seen nonspecific mostly consistent with chronic small vessel ischemic changes. There is one focal area of diminished attenuation involving the right posterior parietal white matter tracts could potentially be an acute infarction. CONCLUSION: Questionable area of possible acute infarction in right posterior frontal lobe without he morrhage. Dee Moreno MD on June 10, 2017 at 16:13 Board Certified Radiologist. This report was verified electronically.
--- NOTE | 2017-06-10 17:02 | RADRPT ---
EXAM DATE/TIME: 06/10/2017 16:04 [facility] COMPARISON: CT BRAIN W/O CONTRAST, June 10, 2017, 15:55. INDICATIONS : CVA. Left side weakness. MEDICAL HISTORY : Hypertension. Carcinoma, prostate. Carcinoma, bladder. SURGICAL HISTORY : Prostatectomy. Inguinal hernia repair. Colon resection. ENCOUNTER: Initial ACUITY: 1 day PAIN SCORE: 0/10 LOCATION: cranial TECHNIQUE: Multiplanar, multisequence MRI of the brain was performed without contrast. FINDINGS: There is an approximate 2 cm area of abnormal diffusion in the right posterior frontal lobe ari esponds to area of diminished attenuation on the patient's CT examination characteristic of acute inf arction without hemorrhage or mass effect. Slight periventricular white matter changes are seen nonsp ecific mostly consistent with chronic small vessel ischemic changes. CONCLUSION: Acute infarction right posterior parietal lobe without hemorrhage or mass effect. Dee Moreno MD on June 10, 2017 at 16:58 Board Certified Radiologist. This report was verified electronically.
[2017-06-10] MEDS: RESP: BUDESONIDE 0.5 MG/2 ML NEB NEB SCH (20:04)
[2017-06-10] MEDS: QUEtiapine FUMARATE 25 MG TAB PO SCH (20:57)
[2017-06-10] MEDS ORDERED: traZODone HCL 50 MG TAB PO SCH (21:00)
[2017-06-10] MEDS ORDERED: MEMANTINE DONEPEZIL PO SCH (21:00)
[2017-06-10] MEDS ORDERED: MONTELUKAST SODIUM 10 MG TAB PO SCH (21:00)
[2017-06-11] VITALS: BP 138/62; PULSE 79; RESP 18; TEMP 98.3; O2SAT 96
[2017-06-11 01:00] VITALS: O2SAT 98
[2017-06-11] MEDS: INSULIN NovoLIN REGULAR SUPPLEMENTAL SCALE SQ SCH ×3 (03:00→12:00)
[2017-06-11] MEDS: CHLORHEXIDINE GLUCONATE 2 % 1 PACK (2 CLOTHS) TOP SCH (03:18)
[2017-06-11 04:00] VITALS: BP 152/67; PULSE 70; RESP 18; TEMP 97.6; O2SAT 99
[2017-06-11 04:40] VITALS: O2SAT 98
[2017-06-11 08:00] VITALS: BP 159/68; PULSE 66; RESP 18; TEMP 97.8; O2SAT 100
[2017-06-11] MEDS ORDERED: LISINOPRIL 10 MG TAB PO SCH (09:00)
[2017-06-11] MEDS ORDERED: PRAVASTATIN SOD 20 MG TAB PO SCH (09:00)
[2017-06-11] MEDS ORDERED: LORATADINE 10 MG TAB PO SCH (09:00)
[2017-06-11] MEDS: QUEtiapine FUMARATE 25 MG TAB PO SCH (09:28)
[2017-06-11] MEDS: DOCUSATE SODIUM 50 MG/SENNA 8.6 MG TAB PO SCH (09:28)
[2017-06-11] MEDS: SODIUM CHLORIDE 0.9% FLUSH 10 ML FLUSH IV FLUSH SCH (09:28)
[2017-06-11] MEDS: RESP: BUDESONIDE 0.5 MG/2 ML NEB NEB SCH (09:28)
[2017-06-11 09:30] VITALS: O2SAT 94
[2017-06-11] MEDS ORDERED: ASCORBIC ACID 500 MG TAB PO SCH (09:30)
[2017-06-11] MEDS ORDERED: ATORVASTATIN 40 MG TAB PO SCH (09:30)
[2017-06-11] MEDS ORDERED: ASPIRIN EC 81 MG TABEC PO SCH (09:30)
[2017-06-11] MEDS ORDERED: PANTOPRAZOLE SOD 20 MG DELAYED RELEASE TAB PO SCH (09:30)
[2017-06-11] MEDS ORDERED: CHOLECALCIFEROL (VIT D3) 1000 UNIT TAB PO SCH (09:30)
[2017-06-11] MEDS ORDERED: ATOR40TA16 PO (09:54)
[2017-06-11] MEDS ORDERED: ECASA81 PO (09:54)
--- NOTE | 2017-06-11 09:55 | HHI.DCPOC ---
Discharge Care Plan Diagnosis: (1) CVA (cerebral vascular accident) (2) Carotid occlusion, right Goals to Promote Your Health * To prevent worsening of your condition and complications * To maintain your health at the optimal level Directions to Meet Your Goals Take your medications as prescribed Follow your dietary instruction Follow activity as directed Keep your appointments as scheduled Take your immunizations and boosters as scheduled If your symptoms worsen call your PCP, if no PCP go to Urgent Care Center or Emergency Room Smoking is Dangerous to Your Health. Avoid second hand smoke Call the 24-hour hour crisis hotline for domestic abuse at Jose Washington MD Jun 11, 2017 09:55
--- NOTE | 2017-06-11 09:58 | HHI.PR ---
Subjective Remarks Nursing denies any deterioration since last night. Apparently the patient had some transient diarrhea yesterday per nursing which is not charted in the physician notes from what I can see. He apparently had diarrhea prior to coming in. However at his latest bowel movement it is formed and the patient says his moderate abdominal pain which she had yesterday is significantly better today and he tolerated by mouth intake yesterday evening and is tolerating by mouth intake this morning is well without any issues. Objective Vital Signs Date Time Temp Pulse Resp B/P (MAP) Pulse Ox O2 Delivery O2 Flow Rate FiO2 06/11/17 09:30 94 Nasal Cannula 3.00 06/11/17 04:40 98 60 06/11/17 04:00 97.6 70 18 152/67 (95) 99 06/11/17 03:04 96 Nasal Cannula 3.00 06/11/17 01:00 98 60 06/11/17 00:00 98.3 79 18 138/62 (87) 96 06/10/17 20:05 96 Nasal Cannula 3.00 06/10/17 20:00 98.1 82 18 144/63 (90) 96 06/10/17 20:00 98.1 82 18 144/63 (90) 96 06/10/17 18:20 98.3 71 16 148/68 (94) 98 06/10/17 16:00 98.4 80 22 136/60 (85) 96 06/10/17 16:00 80 06/10/17 12:00 72 06/10/17 12:00 99.0 72 20 152/68 (96) 94 06/10/17 11:08 96 Nasal Cannula 3.00 06/10/17 10:00 73 I/O 06/10/17 06/10/17 06/10/17 06/11/17 06/11/17 06/11/17 07:00 15:00 23:00 07:00 15:00 23:00 Intake Total 2100 ml 1437 ml Output Total 1650 ml 1800 ml 1800 ml Balance 450 ml -363 ml -1800 ml Intake Oral 680 ml IV Total 1000 ml 757 ml Lipid 1100 ml Output Urine Total 1650 ml 1800 ml 1800 ml # Bowel Movements 1 2 Result Diagram: 06/10/17 0427 06/10/17 042 Imaging Last Impressions Head CT 06/10/17 0000 Signed Impressions: Service Date/Time: Saturday, June 10, 2017 15:55 - CONCLUSION: Questionable area of possible acute infarction in right posterior frontal lobe without hemorrhage. Dee Moreno MD Brain MRI 06/10/17 0000 Signed Impressions: Service Date/Time: Saturday, June 10, 2017 16:04 - CONCLUSION: Acute infarction right posterior parietal lobe without hemorrhage or mass effect. Dee Moreno MD Neck CTA 06/09/17 1505 Signed Impressions: Service Date/Time: Friday, June 09, 2017 15:04 - CONCLUSION: Total occlusion of the right internal carotid artery in the neck. Left carotid is free of stenosis. Vertebrals are patent bilaterally with incidental direct origin of the left vertebral artery from the aortic arch. Chaparro Mora MD Head CTA 06/09/17 1505 Signed Impressions: Service Date/Time: Friday, June 09, 2017 15:04 - CONCLUSION: 1. Occluded distal cervical and petrous segment of the right internal carotid artery. 2. Decreased flow in the right middle cerebral artery. 3. No evidence of proximal vascular occlusive disease involving the intracranial vessels. Cristian Holguin MD Objective Remarks No facial droop, no slurred speech, alert and oriented 3 Patient appears to be in some distress when lying flat, when sitting up he feels much better and his labored effort and tachypnea significantly improves, clear lungs sounds that are otherwise diminished at the bases Left arm including fistgrip shows 0 out of 5 strength; on the contrary his right arm and hand show 5 out of 5 strength as well as bilateral proximal lower extremities A/P Assessment and Plan CVA s/p TPA with partial recovery of symptoms - residual left arm weakness 0/5. Will need rehab. - To be discharged on high intensity statin as well as aspirin. Patient will be discharged on Holter monitor to ultimately help clarify whether or not the patient truly has A. fib as his previous EKGs including one from over 10 years ago, last year, and this admission show normal sinus rhythm. Chronic hypoxia secondary to pickwickian syndrome and COPD - Continue home 3 L of oxygen No longer need to check for C. difficile at this time as his diarrhea has resolved. Patient has met maximal benefit from hospitalization and is clinically stable for discharge. To continue home medications otherwise. Echo results to be followed up post discharge at patient's [facility] - has been documented on patient 's rehabilitation request form. Jose Washington MD Jun 11, 2017 09:58
[2017-06-11] MEDS ORDERED: ATORVASTATIN 40 MG TAB PO ONE (10:00)
[2017-06-11] MEDS ORDERED: LORA0.5T PO (10:12)
--- NOTE | 2017-06-11 11:58 | ECHRPT ---
Indication: CVA/TIA CONCLUSIONS The left ventricular systolic function is normal with an estimated ejection fraction in the range of 60-65%. Doppler parameters are consistent with impaired left ventricular relaxtion (grade 1 diastolic dysfun ction). Mild to moderate mitral valve stenosis (mean grad 4 at 70 bpm, MVA 1.34). Mild mitral valve regurgitation. Moderate to severe aortic valve stenosis (peak 58, mean 34, JESSA 0.7). Trace aortic valve regurgitation. BP: 103 / 46 HR: Rhythm: Atrial fibrillation MEASUREMENTS (Male / Female) Normal Values Technical Quality:Very technically difficult study 2D ECHO LV Diastolic Diameter PLAX 4.6 cm 4.2 - 5.9 / 3.9 - 5.3 cm LV Systolic Diameter PLAX 3.3 cm IVS Diastolic Thickness 1.2 cm 0.6 - 1.0 / 0.6 - 0.9 cm LVPW Diastolic Thickness 1.2 cm 0.6 - 1.0 / 0.6 - 0.9 cm LV Relative Wall Thickness 0.5 RV Internal Dim ED PLAX 3.3 cm LVOT Diameter 1.9 cm Aortic Root Diameter 3.1 cm LA Systolic Diameter LX 3.6 cm 3.0 - 4.0 / 2.7 - 3.8 cm DOPPLER AV Peak Velocity 381.0 cm/s AV Peak Gradient 58.1 mmHg AV Mean Gradient 34.0 mmHg AV Velocity Time Integral 90.7 cm LVOT Peak Velocity 98.5 cm/s LVOT Peak Gradient 3.9 mmHg LVOT Velocity Time Integral 21.7 cm AV Area Cont Eq vti 0.7 cm AV Area Cont Eq pk 0.7 cm MV Peak Velocity 147.0 cm/s MV Peak Gradient 8.6 mmHg MV Mean Velocity 93.2 cm/s MV Mean Gradient 4.0 mmHg Mitral E Point Velocity 61.2 cm/s Mitral A Point Velocity 125.0 cm/s Mitral E to A Ratio 0.5 LV E' Lateral Velocity 9.3 cm/s Mitral E to LV E' Lateral Ratio 6.6 LV E' Septal Velocity 5.9 cm/s Mitral E to LV E' Septal Ratio 10.3 TR Peak Velocity 216.0 cm/s TR Peak Gradient 18.7 mmHg Right Atrial Pressure 10.0 mmHg Pulmonary Artery Systolic Pressu 28.7 mmHg Right Ventricular Systolic Press 28.7 mmHg PV Peak Velocity 76.7 cm/s PV Peak Gradient 2.4 mmHg FINDINGS LEFT VENTRICLE Normal left ventricular size. Mild concentric left ventricular hypertrophy. The left ventricular systolic function is normal with an estimated ejection fraction in the range of 60-65%. Doppler parameters are consistent with impaired left ventricular relaxtion (grade 1 diastolic dysfun ction). RIGHT VENTRICLE Normal right ventricular size and systolic function. LEFT ATRIUM The left atrial size is normal. RIGHT ATRIUM The right atrial size is normal. ATRIAL SEPTUM The interatrial septum not well visualized. AORTA The aortic root and proximal ascending aorta are normal in size on limited imaging. MITRAL VALVE Moderate mitral annular calcification. Mild mitral valve regurgitation. Mild to moderate mitral valve stenosis (mean grad 4 at 70 bpm, MVA 1.34) AORTIC VALVE Trileaflet aortic valve. Diffuse calcification of the aortic valve. Trace aortic valve regurgitation. Moderate to severe aortic valve stenosis (peak 58, mean 34, JESSA 0.7) TRICUSPID VALVE Structurally normal tricuspid valve. There is trace tricuspid valve regurgitation. The estimated pulmonary arterial pressure is 28.7 mmHg. PULMONARY VALVE No pulmonary valve regurgitation or stenosis. VESSELS The inferior vena cava is normal in size. PERICARDIUM No pericardial effusion. Cooper Lopez DO (Electronically Signed) Final Date:11 June 2017 11:57
--- NOTE | 2017-06-11 13:08 | EKG ---
Date Performed: 06/09/2017 Time Performed: 15:53:00 PTAGE: 77 years EKG: Sinus rhythm WITH SINUS ARRHYTHMIA LOW QRS VOLTAGE IN PRECORDIAL LEADS POSSIBLE INFERIOR MYOCARDIAL INFARCTION Co mpared to prior tracing no significant change BORDERLINE ECG PREVIOUS TRACING : 03/29/2016 17.12 DOCTOR: Pepe Steel Interpretating Date/Time 06/11/2017 13:06:58
[2017-06-11 13:55] LABS: HEMATOCRIT 36.3 % (39.0-51.0); HEMOGLOBIN 12.6 GM/DL (13.0-17.0); MEAN CELL VOLUME 92.6 FL (80.0-100.0); MEAN CORPUSCULAR HGB CONC 34.6 % (32.0-36.0); MEAN PLATELET VOLUME 9.3 FL (7.0-11.0); PLATELET COUNT 150 TH/MM3 (150-450); RED BLOOD COUNT 3.92 MIL/MM3 (4.50-5.90); RED CELL DISTRIBUTION WIDTH 13.8 % (11.6-17.2); WHITE BLOOD COUNT 8.5 TH/MM3 (4.0-11.0)
[2017-06-11 14:24] LABS: CALCIUM 8.4 MG/DL (8.5-10.1); CREATININE 0.76 MG/DL (0.60-1.30)
[2017-06-12] MEDS ORDERED: ATORVASTATIN 40 MG TAB PO SCH (21:00)
--- NOTE | 2017-06-14 13:20 | HM ---
Date Performed: 06/11/2017 Time Performed: 10:47:00 HOOKUP DATE: 06/11/17 10:47:00 AM Sun ANALYSIS START TIME: 06/11/2017 10:52:00 AM ANALYSIS END TIME: 06/12/2017 12:35:16 AM PATIENT AGE: 77 PATIENT HEIGHT PATIENT WEIGHT DRUG LIST PATIENT DIAGNOSIS: ischemic CVA TEST NARRATIVE: The patient's average heart rate was 73 BPM. No episodes of tachycardia wer e noted. Heart rates less than 50 BPM were noted < 1% of the time. No pauses exceeding 2.0 secon ds were noted. 1410 ventricular ectopics, which represented 2% of the total beat count, were note d. The highest ventricular ectopic frequency occurred from 11:00 PM to 12:00 AM Mon. During this ti me 315 VE(s) occurred. Ventricular ectopics were observed as 335 isolated beat(s), as 30 couplet(s) and as 95 run(s). 169 supraventricular ectopics, which represented < 1% of the total beat count, were noted. The highest supraventricular ectopic frequency occurred from 11:00 AM to 12:00 PM Sun. During this time 25 SVE(s) occurred. No episodes of ST depression (defined as -1.0 mm or more) we re noted in channel 1. No episodes of ST depression (defined as -1.0 mm or more) were noted in chann el 2. No episodes of ST depression (defined as -1.0 mm or more) were noted in channel 3. TEST INTERPRETATION: Sinus rhythm occasional PACs and PVCs Rare to occassional accelerated idioventricular rhythm Signed by : Jeffery Demarco
== END 2017-06-11 13:35 | DRG 62 ==
LOC: NEPC 14:56 → NEDA 17:43 → N03B 19:54 → N05A 06-10 18:00
PROVIDERS: ADMIT Hospitalist; ATTEND Hospitalist
DX: I63.9 Cerebral infarction, unspecified (principal); Z68.43 Body mass index [BMI] 50.0-59.9, adult; J44.9 Chronic obstructive pulmonary disease, unspecified; E66.2 Morbid (severe) obesity with alveolar hypoventilation; G81.94 Hemiplegia, unspecified affecting left nondominant side; R29.810 Facial weakness; I10 Essential (primary) hypertension; I65.21 Occlusion and stenosis of right carotid artery; E66.01 Morbid (severe) obesity due to excess calories; G47.33 Obstructive sleep apnea (adult) (pediatric); Z85.46 Personal history of malignant neoplasm of prostate; Z85.51 Personal history of malignant neoplasm of bladder; Z93.6 Other artificial openings of urinary tract status; R29.707 NIHSS score 7
CPT/HCPCS: 70450; 70496; 70498; 70551; 80048; 80061; 80307; 81001; 82435; 82550; 82565; 82947; 82948; 83036; 84132; 84295; 84484; 84520; 85025; 85027; 85384; 85610; 85730; 86850; 86900; 86901; 87641; 93005; 93225; 93226; 93306; 94150; 94640; 94664; 94667; 94668; 96365; 96366; 96375; J2997; J7030; J7626; Q9967

== ENCOUNTER 2017-08-21 07:37 | Inpatient (IN) | payer MEDICARE, OTHER ==
[2017-08-21] VITALS (12 sets, daily range): BP systolic 95–146; BP diastolic 46–79; PULSE 78–103; RESP 15–28; TEMP 101.1; O2SAT 10–99
[~2017-08-21] VITALS: Ht 165.1 cm; Wt 163.7 kg
[~2017-08-21 07:37] MED LIST changes: -ACET325 PO; +ALBU6.7H INH; -ALUM5LIQ PO; -ARIC10TA PO; +ATOR40TA16 PO; -B-12500T3 PO; -BISA10SU8 PR; -BROV15NE NEB; -CARB0.5D16 EACH EYE; +CHOL10008 PO; +CLAR10CA3 PO; -DUONI NEB; +ECASA81 PO; -FLEEENE3 PR; -HALO0.5T PO; -LISI-360 PO; +LISI10TA3 PO; +LOPE-1 PO; -LOPE1TAB9 PO; -LORA-392 PO; +LORA0.5T PO; -LOVA20TA PO; +MAALSUS17; -MAGN30S PO; +MEMA1CAP2 PO; +MILKSUS PO; -OMEP20TA PO; +OMEP20TA93 PO; +POLY17S PO; -PROC1TAB8 PO; +QUET1TAB7 PO; +REGU50PO; -SALI0.652 EACH NARE; +TRAZ50TA12 PO; -TRAZ50TA4 PO; -VITA100017 PO; +VITA100021 SL; -VITA20002 PO; +VITA250C3 CHEW; -WAL-10TA2 PO
[2017-08-21] MEDS ORDERED: CEFEPIME INJ 2,000 MG in SODIUM CHLORIDE 0.9% INJ 100 ML IV STA (07:44)
[2017-08-21] MEDS ORDERED: SODIUM CHLOR 0.9% 1000 ML INJ 1,000 ML IV ONE ×2 (07:44)
[2017-08-21] MEDS ORDERED: VANCOMYCIN INJ 1,500 MG in SODIUM CHLORID 0.9% 500 ML INJ 500 ML IV STA (07:44)
[2017-08-21] MEDS ORDERED: SODIUM CHLOR 0.9% 1000 ML INJ 100 ML IV ONE (07:44)
[2017-08-21] MEDS ORDERED: ACETAMINOPHEN 325 MG TAB PO ONE (07:45)
[2017-08-21] MEDS ORDERED: POLY120S (08:00)
[2017-08-21] MEDS ORDERED: LEVO50TA4 PO (08:00)
--- NOTE | 2017-08-21 08:16 | RADRPT ---
EXAM DATE/TIME: 08/21/2017 07:50 [facility] COMPARISON: CT ABDOMEN & PELVIS W CONTRAST, March 29, 2016, 17:18. CHEST SINGLE AP, March 29, 2016, 18:43. INDICATIONS : Fever and shortness of breath. MEDICAL HISTORY : Chronic obstructive pulmonary disease. SURGICAL HISTORY : None. ENCOUNTER: Initial ACUITY: 1 day PAIN SCORE: Non-responsive. LOCATION: Bilateral chest FINDINGS: Rotated portable chest. There is retrocardiac opacity with obscuration of the hemidiaphragm. Cardiac silhouette is mildly enlarged. Pulmonary vascularity is within normal limits given technique. Remaind er of exam is unchanged. CONCLUSION: 1. Left lower lobe airspace consolidation which may reflect pneumonia in the appropriate clinical set ting. Consider formal PA and lateral views for better evaluation. Yazan Deleon MD on August 21, 2017 at 8:11 Board Certified Radiologist. This report was verified electronically.
[2017-08-21 08:26] LABS: AUTOMATED NEUTROPHIL # 14.3 TH/MM3 (1.8-7.7); BASOPHIL % 0.1 % (0.0-2.0); HEMATOCRIT 35.8 % (39.0-51.0); HEMOGLOBIN 11.9 GM/DL (13.0-17.0); LYMPH % 4.2 % (9.0-44.0); LYMPHOCYTE # 0.7 TH/MM3 (1.0-4.8); MEAN CELL VOLUME 92.5 FL (80.0-100.0); MEAN CORPUSCULAR HEMOGLOBIN 30.8 PG (27.0-34.0); MEAN CORPUSCULAR HGB CONC 33.3 % (32.0-36.0); MEAN PLATELET VOLUME 9.6 FL (7.0-11.0); MONO % 8.5 % (0.0-8.0); MONOCYTE # 1.4 TH/MM3 (0-0.9); NEUT % 87.2 % (16.0-70.0); PLATELET COUNT 90 TH/MM3 (150-450); RED BLOOD COUNT 3.88 MIL/MM3 (4.50-5.90); WHITE BLOOD COUNT 16.4 TH/MM3 (4.0-11.0)
[2017-08-21 08:35] LABS: INTERNATIONAL NORMALIZED RATIO 1.1 RATIO; PROTHROMBIN TIME - PATIENT 11.5 SEC (9.8-11.6)
--- NOTE | 2017-08-21 08:35 | PD ---
HPI Chief Complaint: Fever Time Seen by Provider: 07:44 Travel History International Travel<30 days: No Contact w/Intl Traveler<30days: No Traveled to known affect area: No History of Present Illness HPI 77 yo male arrives by EMS. He was found with altered mental status at his rehabilitation facility this a.m. In the ER he describes shortness of breath. EMS notes cloudy urine in the Irizarry bag. The patient is at rehabilitation following an ischemic CVA. He reports yesterday feeling somewhat short of breath at times with symptoms worsening overnight. EMS reports O2 saturation the 80s on room air upon EMS arrival. Heart rate reportedly 100 with a blood pressure of 86 systolic en route according to EMS. PFS Past Medical History Anemia: Yes Arthritis: No Asthma: No Atrial Fibrillation: Yes Blood Disorders: No Heart Rhythm Problems: No Cancer: Yes (, prostate) Cardiovascular Problems: No High Cholesterol: No Chemotherapy: No Chest Pain: No Congestive Heart Failure: No COPD: No Cerebrovascular Accident: No Diabetes: No Diminished Hearing: Yes Endocrine: No GERD: No Glaucoma: No Genitourinary: Yes Headaches: No Hepatitis: No Hiatal Hernia: No Hypertension: Yes Immune Disorder: No Kidney Stones: No Musculoskeletal: No Neurologic: No Psychiatric: No Reproductive: No Respiratory: Yes (SLEEP APNEA) Migraines: No Radiation Therapy: No Renal Failure: No Seizures: No Sleep Apnea: Yes Thyroid Disease: No Ulcer: No Past Surgical History Abdominal Surgery: Yes (HERNIA, PARTIAL COLON REMOVAL) Appendectomy: No Cardiac Surgery: No Cholecystectomy: No Ear Surgery: No Endocrine Surgery: No Eye Surgery: No Genitourinary Surgery: Yes (REPEATED BLADDER SCRAPINGS, PROSTATECTOMY AND BLADDER REMOVED) Gynecologic Surgery: No Oral Surgery: No Pacemaker: No Thoracic Surgery: No Other Surgery: Yes (UROSTOMY PLACEMENT) Social History Alcohol Use: No Tobacco Use: No Substance Use: No Allergies-Medications (Allergen,Severity, Reaction): Coded Allergies: penicillin G (Unverified Allergy, Severe, as a child, 01/24/17) Reported Meds & Prescriptions Reported Meds & Active Scripts Active Lorazepam 0.5 Mg Tab 0.5 Mg PO Q8H PRN Aspirin DR (Aspirin) 81 Mg Tabdr 81 Mg PO DAILY Atorvastatin (Atorvastatin Calcium) 40 Mg Tab 40 Mg PO HS Reported Liquitears Opth (Polyvinyl Alcohol) 1.4% Soln Levothyroxine (Levothyroxine Sodium) 50 Mcg Tab 50 Mcg PO DAILY Budesonide Neb 0.5 Mg/2 Ml Neb 0.5 Mg NEB Q12HR NEB Lisinopril 10 Mg Tab 10 Mg PO DAILY Singulair (Montelukast Sodium) 10 Mg Tab 10 Mg PO HS Maalox Maximum Strength Susp (Mag Hydrox/Aluminum Hyd/Simeth) 400 Mg-400 Mg-40 Mg/5 Ml Oral.susp Quetiapine (Quetiapine Fumarate) 25 Mg Tab 25 Mg PO BID Omeprazole 20 Mg Tab 20 Mg PO DAILY Namzaric (Memantine-Donepezil) 28-10 Mg Cap 1 Cap PO HS Polyethylene Glycol 3350 Powder (Polyethylene Glycol) 17 Gram Pow 17 Gm PO DAILY PRN Milk of Magnesia Liq (Magnesium Hydroxide) 400 Mg/5 Ml Susp 30 Ml PO Q6H PRN Claritin (Loratadine) 10 Mg Cap 10 Mg PO DAILY Imodium A-D (Loperamide HCl) 2 Mg Capsule 4 Mg PO DIRECTED PRN One capsule after each loose stool. Not to exceed 8 tablets per day. Review of Systems Except as stated in HPI: all other systems reviewed are Neg General / Constitutional: Positive: Fever HENT: No: Headaches Respiratory: Positive: Cough, Shortness of Breath Physical Exam Narrative GENERAL: 77-year-old male pleasant well-nourished well-developed Vital Signs Date Time Temp Pulse Resp B/P (MAP) Pulse Ox O2 Delivery O2 Flow Rate FiO2 08/21/17 08:34 96 Non-Rebreather 15.00 08/21/17 08:34 96 24 127/79 (95) 96 Non-Rebreather 15.00 08/21/17 08:34 96 24 96 Non-Rebreather 15.00 08/21/17 08:34 96 24 127/79 (95) 96 Non-Rebreather 15.00 08/21/17 08:00 98 24 98/52 (67) 98 Non-Rebreather 15.00 08/21/17 07:40 98 Non-Rebreather 08/21/17 07:40 103 28 98 Non-Rebreather 08/21/17 07:40 101.1 103 28 95/62 (73) 95 SKIN: Warm and dry. HEAD: Atraumatic. Normocephalic. EYES: Pupils equal and round. No scleral icterus. No injection or drainage. ENT: No nasal bleeding or discharge. Mucous membranes pink and moist. NECK: Trachea midline. No JVD. CARDIOVASCULAR: Tachycardia. Regular rhythm. RESPIRATORY: Minimal dyspnea. GASTROINTESTINAL: There is a right lower abdomen ostomy bag with well-formed stool. Ostomy is pink. No protuberant. The abdomen is nontender. GENITOURINARY: The patient has a transurethral Irizarry with cloudy urine. MUSCULOSKELETAL: Extremities without clubbing, cyanosis, or edema. No obvious deformities. NEUROLOGICAL: Awake and alert. No obvious cranial nerve deficits. Motor grossly within normal limits. Five out of 5 muscle strength in the arms and legs. Normal speech. PSYCHIATRIC: Appropriate mood and affect; insight and judgment normal. Data Data Last Documented VS Vital Signs Date Time Temp Pulse Resp B/P (MAP) Pulse Ox O2 Delivery O2 Flow Rate FiO2 08/21/17 08:34 96 Non-Rebreather 15.00 08/21/17 08:34 96 24 127/79 (95) 08/21/17 07:40 101.1 Orders Orders Sepsis Workup Initiated (08/21/17 ) Electrocardiogram (08/21/17 07:44) Complete Blood Count With Diff (08/21/17 07:44) Comprehensive Metabolic Panel (08/21/17 07:44) Prothrombin Time / Inr (Pt) (08/21/17:44) Act Partial Throm Time (Ptt) (08/21/17 07:44) Lactic Acid Sepsis Protocol (08/21/17 07:44) Magnesium (Mg) (08/21/17 07:44) Lipase (08/21/17 07:44) Ckmb (Isoenzyme) Profile (08/21/17 07:44) Troponin I (08/21/17 07:44) Urinalysis - C+S If Indicated (08/21/17 07:44) Influenzae A/B Antigen (08/21/17 07:44) Blood Culture (08/21/17 07:44) Chest, Single Ap (08/21/17 07:44) Arterial Blood Gas (Abg) (08/21/17 07:44) Blood Glucose (08/21/17 07:44) Ecg Monitoring (08/21/17 07:44) Iv Access Insert/Monitor (08/21/17 07:44) Oximetry (08/21/17 07:44) Oxygen Administration (08/21/17 07:44) Acetaminophen (Tylenol) (08/21/17 07:45) Vancomycin Inj (Vancomycin Inj) (08/21/17 07:44) Cefepime Inj (Maxipime Inj) (08/21/17 07:44) Sodium Chlor 0.9% 1000 Ml Inj (Ns 1000 M (08/21/17 07:44) Sodium Chlor 0.9% 1000 Ml Inj (Ns 1000 M (08/21/17 07:44) Sodium Chlor 0.9% 1000 Ml Inj (Ns 1000 M (08/21/17 07:44) CKMB (08/21/17 07:10) CKMB% (08/21/17 07:10) Urine Culture (08/21/17 08:20) Arterial Blood Gas (Abg) (08/21/17 ) Admit To Inpatient (08/21/17 ) Code Status (08/21/17 09:48) Vital Signs (Adult) TONE.Q4H (08/21/17 09:48) Activity Oob With Assistance (08/21/17 09:48) Intake + Output 06,14,22 (08/21/17 09:48) Notify Dr: Other (08/21/17 09:48) Diet Npo (08/21/17 Breakfast) Resp Oxygen Chase C Titrat 1-4 L (08/21/17 ) Sodium Chloride 0.9% Flush (Ns Flush) (08/21/17 10:00) Sodium Chloride 0.9% Flush (Ns Flush) (08/21/17 21:00) Inpatient Certification (08/21/17 ) Admit Order (Ed Use Only) (08/21/17 ) Test Director / Telemetry TONE.Q8H (08/21/17 10:02) Vital Signs (Adult) Q4H (08/21/17 10:02) Diet Heart Healthy (08/21/17 Lunch) Activity Bed Rest (08/21/17 10:02) Labs Laboratory Tests Test 08/21/17 07:10 08/21/17 08:00 08/21/17 08:20 08/21/17 09:33 White Blood Count 16.4 TH/MM3 Red Blood Count 3.88 MIL/MM3 Hemoglobin 11.9 GM/DL Hematocrit 35.8 % Mean Corpuscular Volume 92.5 FL Mean Corpuscular Hemoglobin 30.8 PG Mean Corpuscular Hemoglobin Concent 33.3 % Red Cell Distribution Width 15.0 % Platelet Count 90 TH/MM3 Mean Platelet Volume 9.6 FL Neutrophils (%) (Auto) 87.2 % Lymphocytes (%) (Auto) 4.2 % Monocytes (%) (Auto) 8.5 % Eosinophils (%) (Auto) 0.0 % Basophils (%) (Auto) 0.1 % Neutrophils # (Auto) 14.3 TH/MM3 Lymphocytes # (Auto) 0.7 TH/MM3 Monocytes # (Auto) 1.4 TH/MM3 Eosinophils # (Auto) 0.0 TH/MM3 Basophils # (Auto) 0.0 TH/MM3 CBC Comment AUTO DIFF Differential Total Cells Counted 100 Neutrophils % (Manual) 51 % Band Neutrophils % 38 % Lymphocytes % 2 % Monocytes % 9 % Neutrophils # (Manual) 14.6 TH/MM3 Differential Comment FINAL DIFF MANUAL Platelet Estimate LOW Platelet Morphology Comment NORMAL Prothrombin Time 11.5 SEC Prothromb Time International Ratio 1.1 RATIO Activated Partial Thromboplast Time 28.0 SEC Blood Urea Nitrogen 41 MG/DL Creatinine 1.74 MG/DL Random Glucose 118 MG/DL Total Protein 6.2 GM/DL Albumin 2.4 GM/DL Calcium Level 7.8 MG/DL Magnesium Level 2.0 MG/DL Alkaline Phosphatase 70 U/L Aspartate Amino Transf (AST/SGOT) 48 U/L Alanine Aminotransferase (ALT/SGPT) 56 U/L Total Bilirubin 1.0 MG/DL Sodium Level 131 MEQ/L Potassium Level 4.6 MEQ/L Chloride Level 95 MEQ/L Carbon Dioxide Level 28.1 MEQ/L Anion Gap 8 MEQ/L Estimat Glomerular Filtration Rate 38 ML/MIN Total Creatine Kinase 126 U/L Creatine Kinase MB 3.1 NG/ML Troponin I 0.05 NG/ML Lipase 92 U/L Lactic Acid Level 2.5 mmol/L Urine Color ALEJANDRA Urine Turbidity CLOUDY Urine pH 8.0 Urine Specific [place] 1.016 Urine Protein 30 mg/dL Urine Glucose (UA) NEG mg/dL Urine Ketones NEG mg/dL Urine Occult Blood NEG Urine Nitrite NEG Urine Bilirubin NEG Urine Urobilinogen LESS THAN 2.0 MG/DL Urine Leukocyte Esterase LARGE Urine RBC 7 /hpf Urine WBC 77 /hpf Urine Squamous Epithelial Cells 1 /hpf Urine Amorphous Sediment OCC Urine Bacteria FEW /hpf Urine Hyaline Casts 6 /lpf Urine Mucus FEW /lpf Microscopic Urinalysis Comment CATH-CULTURE IND Blood Gas Puncture Site RT RADIAL Blood Gas Patient Temperature 98.6 Blood Gas HCO3 24 mmol/L Blood Gas Base Excess -1.2 mmol/L Blood Gas Oxygen Saturation 97 % Arterial Blood pH 7.29 Arterial Blood Partial Pressure CO2 52 mmHg Arterial Blood Partial Pressure O2 237 mmHG Arterial Blood Oxygen Content 14.5 Vol % Arterial Blood Carboxyhemoglobin 0.7 % Arterial Blood Methemoglobin 1.4 % Blood Gas Hemoglobin 10.2 G/DL Oxygen Delivery Device NRB MASK Blood Gas Liter Flow 15 L/M Blood Gas Inspired Oxygen 100 % MDM Medical Decision Making Medical Screen Exam Complete: Yes Emergency Medical Condition: Yes Medical Record Reviewed: Yes Differential Diagnosis Sepsis, severe sepsis, septic shock, pneumonia, UTI Narrative Course CBC & BMP Diagram 08/21/17 07:10 Total Protein 6.2 L, Albumin 2.4 L, Calcium Level 7.8 L, Magnesium Level 2.0, Alkaline Phosphatase 70, Aspartate Amino Transf (AST/SGOT) 48 H, Alanine Aminotransferase (ALT/SGPT) 56, Total Bilirubin 1.0 Urinalysis shows UTI X-ray shows a left base consolidation Cefepime and vancomycin started 3 L normal saline started Blood cultures drawn Patient has UTI and pneumonia and meets sepsis criteria will be admitted for management of the same Critical Care Narrative Aggregate critical care time was 35 minutes. Time to perform other separately billable procedures was not included in the critical care time. My time did not include minutes spent treating any other patients simultaneously or on activities that did not directly contribute to the patient's treatment. The services I provided to this patient were to treat and/or prevent clinically significant deterioration that could result in: Septic shock, MODS I provided critical care services requiring my management, as noted below: Chart data review, documentation time, medication orders and management, vital sign assessments/reviewing monitor data, ordering and reviewing lab tests, ordering and interpreting/reviewing x-rays and diagnostic studies, care of the patient and discussion of the patient with the admitting physicians. Sepsis Criteria SIRS Criteria (2 or more): Temp > 100.9 or < 96.8, Heart rate over 90, WBC > 92829, < 4000 or > 10% bands Sepsis Criteria (SIRS+source): Infect source susp/known Severe Sepsis (+one): Lactate >2 Diagnosis Primary Impression: Severe sepsis Additional Impressions: PNA (pneumonia) Qualified Codes: J18.1 - Lobar pneumonia, unspecified organism UTI (urinary tract infection) Qualified Codes: N39.0 - Urinary tract infection, site not specified; R31.9 - Hematuria, unspecified SERGIO (acute kidney injury) Admitting Information Admitting Physician Requests: Admit Wilfredo Lopez MD Aug 21, 2017 08:35
[2017-08-21 08:39] LABS: LACTIC ACID SEPSIS PROTOCOL 2.5 mmol/L (0.4-2.0)
[2017-08-21 08:45] LABS: ALBUMIN 2.4 GM/DL (3.4-5.0); ALT (GPT) 56 U/L (12-78); AST (GOT) 48 U/L (15-37); BICARBONATE 28.1 MEQ/L (21.0-32.0); BLOOD UREA NITROGEN 41 MG/DL (7-18); CALCIUM 7.8 MG/DL (8.5-10.1); CHLORIDE 95 MEQ/L (98-107); CREATININE 1.74 MG/DL (0.60-1.30); GLOMERULAR FILTRATION RATE 38 ML/MIN (>89); GLUCOSE,RANDOM 118 MG/DL (74-106); SODIUM (NA) 131 MEQ/L (136-145)
[2017-08-21 08:49] LABS: ALKALINE PHOSPHATASE 70 U/L (45-117); TOTAL PROTEIN 6.2 GM/DL (6.4-8.2); TROPONIN I 0.05 NG/ML (0.02-0.05)
[2017-08-21 08:56] LABS: AMORPHOUS SEDIMENT, URINE OCC; BACTERIA, URINE FEW /hpf; BILIRUBIN, URINE NEG (NEG); BLOOD, URINE NEG (NEG); GLUCOSE,URINE NEG (NEG); HYALINE CAST, URINE 6 /lpf (RARE); KETONE, URINE NEG (NEG); MUCUS URINE FEW /lpf (OCC); NITRITE,URINE NEG (NEG); SQUAMOUS EPITHELIAL CELL URINE 1 /hpf (0-5); URINE LEUKOCYTE ESTERASE LARGE (NEG)
[2017-08-21 09:01] LABS: URINE COLOR AMBER (YELLW/STRAW)
[2017-08-21 10:00] LABS: BANDS 38 % (0-6); LYMPHOCYTES 2 % (9-44); MONOCYTES 9 % (0-8); NEUTROPHIL # MANUAL DIFF 14.6 TH/MM3 (1.8-7.7); POLYS (SEG NEUTROPHILS) 51 % (16-70)
[2017-08-21] MEDS ORDERED: SODIUM CHLORIDE 0.9% FLUSH 10 ML FLUSH IV FLUSH PRN (10:00)
[2017-08-21] MEDS ORDERED: CEFEPIME INJ 2,000 MG in SODIUM CHLORIDE 0.9% INJ 100 ML IV SCH (10:30)
[2017-08-21] MEDS ORDERED: Vancomycin Consult Pharmacy 1 EA OTHER SCH (10:30)
[2017-08-21] MEDS ORDERED: NALOXONE HCL 0.4 MG/ML AMP IV PUSH PRN (11:00)
[2017-08-21] MEDS ORDERED: BISACODYL 10 MG SUPP RECTAL PRN (11:00)
[2017-08-21] MEDS ORDERED: MAGNESIUM HYDROXIDE SUSP 30 ML CUP PO PRN (11:00)
[2017-08-21] MEDS ORDERED: LORazepam 0.5 MG TAB PO PRN (11:00)
[2017-08-21] MEDS ORDERED: ONDANSETRON HCL 4 MG/2 ML VIAL IVP PRN (11:00)
[2017-08-21] MEDS ORDERED: LACTULOSE SYRUP 20 GM/30 ML CUP PO PRN (11:00)
--- NOTE | 2017-08-21 11:21 | HHI.HP ---
[facility] Service Family Medicine Primary Care Physician Dr. Patricio Lopez Admission Diagnosis Severe Sepsis (PNA, UTI) Diagnoses: International Travel<30 Days: No Contact w/Intl Traveler<30days: No History of Present Illness Patient is a 77 year old male with history of chronic indwelling urostomy who presents via [facility] from [facility] with altered mental status and respiratory distress. He complains only of "dark urine" and feeling "frustrated" at home, but notes that both of these has been going on for weeks. He states he has had difficulty breathing over at least with last week with cough productive of non-bloody mucus as well. No chest pain. He is non-ambulatory at rest but possibly has increased weakness. No reported fevers, chills, or abdominal pain. He does not endorse confusion. He denies recent antibiotic use. (Stacy Sampson MD) Review of Systems Constitutional: COMPLAINS OF: Fever, Chills Eyes: COMPLAINS OF: Blurred vision, Diplopia Ears, nose, mouth, throat: DENIES: Tinnitus, Oral lesions, Throat pain, Hoarseness Respiratory: COMPLAINS OF: Apneas (chronic), Cough, Shortness of breath, DENIES : Wheezing Cardiovascular: COMPLAINS OF: Dyspnea on Exertion, DENIES: Chest pain, Palpitations, Lower Extremity Edema Gastrointestinal: COMPLAINS OF: Black stools, DENIES: Abdominal pain, Bloody stools, Constipation, Diarrhea, Nausea, Vomiting Genitourinary: COMPLAINS OF: Urinary frequency, Urinary incontinence (chronic catheter), Dysuria, DENIES: Hematuria, Penile Discharge, Testicular Pain, Testicular Swelling Musculoskeletal: DENIES: Muscle aches, Stiffness, Back pain, Neck pain Integumentary: DENIES: Pruritus, Rash Neurologic: COMPLAINS OF: Abnormal gait, DENIES: Localized weakness, Seizures, Poor Balance Psychiatric: COMPLAINS OF: Depression, DENIES: Anxiety, Confusion (Stacy Sampson MD) Past Family Social History Allergies: Coded Allergies: penicillin G (Unverified Allergy, Severe, as a child, 01/24/17) Physical Exam Vital Signs Vital Signs Date Time Temp Pulse Resp B/P (MAP) Pulse Ox O2 Delivery O2 Flow Rate FiO2 08/21/17 08:34 96 Non-Rebreather 15.00 08/21/17 08:34 96 24 127/79 (95) 96 Non-Rebreather 15.00 08/21/17 08:34 96 24 96 Non-Rebreather 15.00 08/21/17 08:34 96 24 127/79 (95) 96 Non-Rebreather 15.00 08/21/17 08:00 98 24 98/52 (67) 98 Non-Rebreather 15.00 08/21/17 07:40 98 Non-Rebreather 08/21/17 07:40 103 28 98 Non-Rebreather 08/21/17 07:40 101.1 103 28 95/62 (73) 95 Physical Exam GENERAL: This is a well-nourished, well-developed male patient. Obese and wearing nonrebreather. Speaking in full sentences. NEURO: Awake, alert, oriented to person, place, and year. Thinks he is at [facility]. Nonambulatory but moves all extremities. Could not follow command for EOM assessment. Moving right LE more than LLE. Upper body strength reduced but bilaterally >3/5. SKIN: Cool and dry. No ecchymoses. Small ~1 cm right buttock mild skin breakdown 2 inches from lower back. There is global sacral non-blanching erythema with no areas of breakdown. Right upper inner thigh noted to have area of irritation where catheter tubing sits. Scattered healing excoriated papules on the right outer thigh noted. Hyperpigmentation noted at bilateral lower extremities (distal half). No signs of skin infections. HEAD: Atraumatic. Normocephalic. No temporal or scalp tenderness. EYES: PERRL, pupils 2mm bilaterally. No scleral icterus. Mild physiologic drainage. ENT: Nose without bleeding or purulent drainage. Throat without erythema, tonsillar hypertrophy or exudate. Airway patent. Upper and lower dentures noted. NECK: Very large neck with redundant skin. No obvious JVD or lymphadenopathy. Nontender, no meningeal signs. CARDIOVASCULAR: Regular rate and rhythm without murmurs, gallops, or rubs. Heart sounds distant due to body habitus. RESPIRATORY: Breath sounds coarse on nonrebreather. Transmitted breath sounds throughout. Cough nonproductive. No wheezes. GASTROINTESTINAL: Abdomen obese. Non-tender. Reduced bowel sounds. No hepato- splenomegaly, or palpable masses. No guarding. Ventral hernia noted on left lower abdomen. GENITOURO: Nephrostomy tube with site approximately mid-abdominal with no evidence of leaks or surrounding skin breakdown. MUSCULOSKELETAL: Extremities without clubbing, cyanosis, or edema. No joint tenderness, effusion, or edema noted. No calf tenderness. RECTAL: no noted fissures, lesions, or hemorrhoids. Normal tone. Laboratory Laboratory Tests Test 08/21/17 07:10 08/21/17 08:00 08/21/17 08:20 08/21/17 09:33 White Blood Count 16.4 Red Blood Count 3.88 Hemoglobin 11.9 Hematocrit 35.8 Mean Corpuscular Volume 92.5 Mean Corpuscular Hemoglobin 30.8 Mean Corpuscular Hemoglobin Concent 33.3 Red Cell Distribution Width 15.0 Platelet Count 90 Mean Platelet Volume 9.6 Neutrophils (%) (Auto) 87.2 Lymphocytes (%) (Auto) 4.2 Monocytes (%) (Auto) 8.5 Eosinophils (%) (Auto) 0.0 Basophils (%) (Auto) 0.1 Neutrophils # (Auto) 14.3 Lymphocytes # (Auto) 0.7 Monocytes # (Auto) 1.4 Eosinophils # (Auto) 0.0 Basophils # (Auto) 0.0 CBC Comment AUTO DIFF Differential Total Cells Counted 100 Neutrophils % (Manual) 51 Band Neutrophils % 38 Lymphocytes % 2 Monocytes % 9 Neutrophils # (Manual) 14.6 Differential Comment FINAL DIFF MANUAL Platelet Estimate LOW Platelet Morphology Comment NORMAL Prothrombin Time 11.5 Prothromb Time International Ratio 1.1 Activated Partial Thromboplast Time 28.0 Blood Urea Nitrogen 41 Creatinine 1.74 Random Glucose 118 Total Protein 6.2 Albumin 2.4 Calcium Level 7.8 Magnesium Level 2.0 Alkaline Phosphatase 70 Aspartate Amino Transf (AST/SGOT) 48 Alanine Aminotransferase (ALT/SGPT) 56 Total Bilirubin 1.0 Sodium Level 131 Potassium Level 4.6 Chloride Level 95 Carbon Dioxide Level 28.1 Anion Gap 8 Estimat Glomerular Filtration Rate 38 Total Creatine Kinase 126 Creatine Kinase MB 3.1 Troponin I 0.05 Lipase 92 Lactic Acid Level 2.5 Urine Color EDER Urine Turbidity CLOUDY Urine pH 8.0 Urine Specific [place] 1.016 Urine Protein 30 Urine Glucose (UA) NEG Urine Ketones NEG Urine Occult Blood NEG Urine Nitrite NEG Urine Bilirubin NEG Urine Urobilinogen LESS THAN 2.0 Urine Leukocyte Esterase LARGE Urine RBC 7 Urine WBC 77 Urine Squamous Epithelial Cells 1 Urine Amorphous Sediment OCC Urine Bacteria FEW Urine Hyaline Casts 6 Urine Mucus FEW Microscopic Urinalysis Comment CATH-CULTURE IND Blood Gas Puncture Site RT RADIAL Blood Gas Patient Temperature 98.6 Blood Gas HCO3 24 Blood Gas Base Excess -1.2 Blood Gas Oxygen Saturation 97 Arterial Blood pH 7.29 Arterial Blood Partial Pressure CO2 52 Arterial Blood Partial Pressure O2 237 Arterial Blood Oxygen Content 14.5 Arterial Blood Carboxyhemoglobin 0.7 Arterial Blood Methemoglobin 1.4 Blood Gas Hemoglobin 10.2 Oxygen Delivery Device NRB MASK Blood Gas Liter Flow 15 Blood Gas Inspired Oxygen 100 Date/Time Source Procedure Growth Status 08/21/17 07:11 Blood Peripheral Aerobic Blood Culture Pending Received 08/21/17 07:11 Blood Peripheral Anaerobic Blood Culture Pending Received 08/21/17 08:20 Nasal Aspirate Influenza Types A,B Antigen (NARENDRA) - Final NEGATIVE FOR FLU A AND B ANTIGEN.... Complete 08/21/17 08:20 Urine Catheterized Urine Urine Culture Pending Worksheet (Stacy Sampson MD) Result Diagram: 08/21/17 0710 08/21/17 0710 Imaging Last 72 hours Impressions Chest X-Ray 08/21/17 0744 Signed Impressions: Service Date/Time: Monday, August 21, 2017 07:50 - CONCLUSION: 1. Left lower lobe airspace consolidation which may reflect pneumonia in the appropriate clinical setting. Consider formal PA and lateral views for better evaluation. Yazan Deleon MD (Stacy Sampson MD) Septic Shock Reassessment Septic shock perfusion: reassessment completed (Stacy Sampson MD) Caprini VTE Risk Assessment Caprini VTE Risk Assessment: Mod/High Risk (score >= 2) Caprini Risk Assessment Model Point Value = 1 Point Value = 2 Point Value = 3 Point Value = 5 Age 41-60 Minor surgery BMI > 25 kg/m2 Swollen legs Varicose veins or History of unexplained or recurrent spontaneous Oral contraceptives or hormone replacement Sepsis (< 1 month) Serious lung disease, including pneumonia (< 1 month) Abnormal pulmonary function Acute myocardial infarction Congestive heart failure (< 1 month) History of inflammatory bowel disease Medical patient at bed rest Age 61-74 Arthroscopic surgery Major open surgery (> 45 min) Laparoscopic surgery (> 45 min) Malignancy Confined to bed (> 72 hours) Immobilizing plaster cast Central venous access Age >= 75 History of VTE Family history of VTE Factor V Leiden Prothrombin [id number] Lupus anticoagulant Anticardiolipin antibodies Elevated serum homocysteine Heparin-induced thrombocytopenia Other congenital or acquired thrombophilia Stroke (< 1 month) Elective arthroplasty Hip, pelvis, or leg fracture Acute spinal cord injury (< 1 month) Prophylaxis Regimen Total Risk Factor Score Risk Level Prophylaxis Regimen 0-1 Low Early ambulation 2 Moderate Order ONE of the following: *Sequential Compression Device (SCD) *Heparin 5000 units SQ BID 3-4 Higher Order ONE of the following medications: *Heparin 5000 units SQ TID *Enoxaparin/Lovenox 40 mg SQ daily (WT < 150 kg, CrCl > 30 mL/min) *Enoxaparin/Lovenox 30 mg SQ daily (WT < 150 kg, CrCl > 10-29 mL/min) *Enoxaparin/Lovenox 30 mg SQ BID (WT < 150 kg, CrCl > 30 mL/min) AND/OR *Sequential Compression Device (SCD) 5 or more Highest Order ONE of the following medications: *Heparin 5000 units SQ TID (Preferred with Epidurals) *Enoxaparin/Lovenox 40 mg SQ daily (WT < 150 kg, CrCl > 30 mL/min) *Enoxaparin/Lovenox 30 mg SQ daily (WT < 150 kg, CrCl > 10-29 mL/min) *Enoxaparin/Lovenox 30 mg SQ BID (WT < 150 kg, CrCl > 30 mL/min) AND *Sequential Compression Device (SCD) (Stacy Sampson MD) Assessment and Plan Assessment and Plan 77 year old male admitted with severe sepsis, UTI, PNA. Will admit to inpatient. Anticipate at least a 2-3 day inpatient stay for IV antibiotics, respiratory support, culture assessment, fluid monitoring and support given SERGIO and UTI. Code Status Community DNR reviewed, signed 2010, re-confirmed with patient today Discussed Condition With Seen and discussed with Get Dubose, PGY1, and Dr. Ina Mascorro, attending (Stacy Sampson MD) Attending Attestation 77 yo resident of [facility] with schizoaffective disorder and hx of alcoholism and DEE. Hx of stroke in May 2017 with left hemiparesis. Has been feeling "bad" and was noted to have altered mental status at his facility, as well as shortness of breath and "dark" urine. Has urostomy due to hx bladder CA. Patient seen and examined and discussed with Drs. Sampson and Sedrcik. I agree with the findings and the plan of care as discussed with me and documented in the resident note. (Ina Mascorro MD) Problem List: (1) Severe sepsis ICD Codes: A41.9 - Sepsis, unspecified organism; R65.20 - Severe sepsis without septic shock Status: Acute Plan: Patient meeting severe sepsis criteria based on fever, RR and HR elevations, lactic acid >2, WBC 16K on admission. UA evident of infection, and AP CXR suggestive of RLL infiltrate. Suspected sources of UTI and PNA to be treated and monitored as follows: * Sepsis protocol: IVF bolus x 2 in ED, will continue fluids at 160cc/hr. Monitor for fluid overload as adjust as needed. * Recheck CBC and CMP in AM. * Will add sputum culture, urine Legionella and Pneumococcal Ag. Will monitor urine and blood cultures already obtained * Rapid flu negative on admission * Antibiotics: status-post IV Vancomycin 1g and Cefepime 2g x 1 in ED. Given indwelling catheter, urinary and respiratory sources of infection, and meeting severe sepsis criteria will continue Vancomycin (with pharmacy consult), Cefepime 2g IV qhr, and add Azithromycin 500mg IV daily. (2) UTI (urinary tract infection) ICD Codes: N39.0 - Urinary tract infection, site not specified Status: Acute Plan: History of MDRO UTI in 2013 and 2011. Has had chronic indwelling urostomy 7-8 years related to history of bladder cancer which increases risk of severe infection. Urine is dark brown at time of admission, reportedly cloudy prior to admission. UA showing eder color, large LE, 77 WBC, 7 RBCs * Management as above with aggressive IVF and antibiotics * Culture pending * Strict Is/Os q shift (3) PNA (pneumonia) ICD Codes: J18.9 - Pneumonia, unspecified organism Status: Acute Plan: PNA suspected given symptoms, CXR findings, and sepsis. Antibiotics as above for Severe Sepsis. Respiratory support as follows: * On admission required non-rebreather at 15L. ABG reviewed showing mild respiratory acidosis. * Will wean to NC as tolerated, with goal O2 sat >92% with no respiratory distress * Duonebs q 6hr scheduled with albuterol nebs q2 hr PRN wheezing or SOB * Will obtain repeat CXR and/or chest CT if indicated by worsening respiratory status or worsening sepsis (4) SERGIO (acute kidney injury) ICD Codes: N17.9 - Acute kidney failure, unspecified Status: Acute Plan: SERGIO noted on admission. Baseline from previous hospitalization 0.7-0.9. Likely related to sepsis UTI. * IVF as above * Monitor BMP closely * Avoid nephrotoxic agents (5) Troponin level elevated ICD Codes: R74.8 - Abnormal levels of other serum enzymes Status: Acute Plan: Troponin level is 0.05 on admission. No chest pain. EKG showing sinus rhythm, rate ~100. No signs of ST changes, T wave changes, or heart block. Troponin elevation possibly related to sepsis, SERGIO. Takes daily aspirin, will continue. If chest pain will re-assess cardiac function with enzymes and EKG. (6) Altered mental status ICD Codes: R41.82 - Altered mental status Status: Resolved Plan: Altered mental status noted on admission documentation, however, no AMS noted on exam. Does have recent history of CVA and was at SNF for rehab at time of this admission. * Monitor via neuro checks q 4 hr (7) Fluids/Electrolytes/Nutrition/Prophylaxis Status: Acute Plan: Fluids: tolerating PO/NS @ 160ml/hr Electrolytes: monitor and replete as needed Nutrition: Nothing by mouth for now, will assess respiratory function and advance to regular diet as tolerated DVT Prophylaxis: Early ambulation. Lovenox 40mg subQ q24hr GI Prophylaxis: Continue home dose of omeprazole 40 mg daily PRN anti-HTN: Hold home antihypertensive for now given sepsis with hypotension, will monitor (Stacy Sampson MD) Physician Certification 2 Midnight Certification Type: Admission for Inpatient Services Order for Inpatient Services The services are ordered in accordance with Medicare regulations or non- Medicare payer requirements, as applicable. In the case of services not specified as inpatient-only, they are appropriately provided as inpatient services in accordance with the 2-midnight benchmark. Estimated LOS (days): 3 days is the estimated time the patient will need to remain in the hospital, assuming treatment plan goals are met and no additional complications. Post-Hospital Plan: Not yet determined (Stacy Sampson MD) Problem Qualifiers (1) UTI (urinary tract infection): Qualified Codes: N39.0 - Urinary tract infection, site not specified; R31.9 - Hematuria, unspecified (2) PNA (pneumonia): Qualified Codes: J18.1 - Lobar pneumonia, unspecified organism Stacy Sampson MD Aug 21, 2017 11:21 Ina Mascorro MD Aug 21, 2017 14:24
[2017-08-21] MEDS: ENOXAPARIN SODIUM 40 MG/0.4 ML SYRINGE SQ SCH (12:00)
[2017-08-21] MEDS: ASPIRIN EC 81 MG TABEC PO SCH (12:00)
[2017-08-21] MEDS ORDERED: SENNOSIDES 8.6 MG TAB PO PRN (12:00)
[2017-08-21] MEDS: AZITHROMYCIN INJ 500 MG in SODIUM CHLOR 0.9% 250 ML INJ 250 ML IV SCH (13:00)
[2017-08-21] MEDS: RESP: ALBUTEROL 2.5 MG/IPRATROPIUM 0.5 MG NEB (SCH) INH ×2 (14:37→19:51)
[2017-08-21] MEDS: CEFEPIME INJ 2,000 MG in SODIUM CHLORIDE 0.9% INJ 100 ML IV SCH (16:21)
[2017-08-21] MEDS: RESP: BUDESONIDE 0.5 MG/2 ML NEB NEB SCH ×2 (17:03→19:55)
--- NOTE | 2017-08-21 18:26 | EKG ---
Date Performed: 08/21/2017 Time Performed: 07:48:22 PTAGE: 77 years EKG: Sinus rhythm WITH SINUS ARRHYTHMIA INFERIOR MYOCARDIAL INFARCTION ABNORMAL ECG PREVIOUS TRACING 06/09/17 @ 1553 Since the prior tracing, there has been no significant change DOCTOR: Venus Lazar Interpretating Date/Time 08/21/2017 18:25:57
[2017-08-21] MEDS ORDERED: VANCOMYCIN INJ 1,000 MG in SODIUM CHLOR 0.9% 250 ML INJ 250 ML IV SCH (21:00)
[2017-08-21] MEDS: MEMANTINE HCL 10 MG TAB PO SCH (21:00)
[2017-08-21] MEDS ORDERED: QUEtiapine FUMARATE 25 MG TAB PO SCH (21:00)
[2017-08-21] MEDS ORDERED: NON-FORMULARY DRUG (Memantine-Donepezil (Namzaric) 1 CAP) PO SCH (21:00)
[2017-08-21] MEDS: SODIUM CHLORIDE 0.9% FLUSH 10 ML FLUSH IV FLUSH SCH (21:00)
[2017-08-21] MEDS: ATORVASTATIN 40 MG TAB PO SCH (21:51)
[2017-08-21] MEDS: DOCUSATE SODIUM 50 MG/SENNA 8.6 MG TAB PO SCH (21:51)
[2017-08-21] MEDS: DONEPEZIL HCL 5 MG TAB PO SCH (21:52)
[2017-08-21] MEDS: MONTELUKAST SODIUM 10 MG TAB PO SCH (21:52)
--- NOTE | 2017-08-21 22:40 | PD.CONS ---
[facility] Service Critical Care Medicine Consult Requested By Dr. Morocho (family medicine) Reason for Consult Sepsis, respiratory distress Primary Care Physician David Lopez M.D. History of Present Illness 77 WM with past medical history of hypertension, ischemic stroke 05/2017 for which he received TPA, paroxysmal atrial fibrillation, prostate cancer status post prostatectomy, bladder cancer status post cystectomy with ileal conduit, hypertension, obstructive sleep apnea, obesity who presented to [facility] emergency department via [facility] from [facility] complaining of shortness of breath. He was febrile to 101.1 with white blood cell count of 16. Chest x-ray demonstrated left lower lobe consolidation. Influenza screen was negative. He was admitted to family medicine service. He reported to them that he had a one week history of productive cough. He was administered broad- spectrum antibiotics including vancomycin, cefepime, azithromycin. He had hypercapnic respiratory failure with pH of 7.29/PaCO2 52/PA O2 of 237/ bicarbonate 24. He was placed on BiPAP 16/8 35%. His most recent ABG demonstrates pH of 7.34/PaCO2 46/PA O2 of 86. Critical care medicine is consulted to assist with management of severe sepsis and respiratory failure requiring BiPAP. He has a [facility] DNR. There is no contact information for family and patient is currently unable to provide it. Past Family Social History Allergies: Coded Allergies: penicillin G (Unverified Allergy, Severe, as a child, 01/24/17) Past Medical History Ischemic stroke with residual L hemiparesis. 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 Dementia Chronic bronchitis PTSD Major depressive disorder Morbid Obesity Hypothyroidism Past Surgical History Partial colectomy/proctectomy Prostatectomy Hernia repair Cystectomy with ileal conduit Reported Medications Reviewed medication records from longterm: Aspirin 81 mg by mouth daily for stroke prevention Lipitor 40 g by mouth daily at bedtime Budesonide 0.5 every 12 hours Synthroid 50 mg by mouth daily Liquid tears 1.4% ophthalmic solution 1 drop both eyes twice a day for xerophthalmia Lisinopril 10 mill grams by mouth daily Claritin 10 mg by mouth daily Ativan 0.5 mg by mouth every 12 hours Singulair 10 mg by mouth daily at bedtime Namzaric 28 mg/10 mg SR cap 1 tab by mouth daily at bedtime Prilosec 20 mill grams by mouth daily Seroquel 25 mg by mouth twice a day Tylenol 325 2 tabs by mouth every 4 hours as needed for pain Maalox as needed Dulcolax 10 mg suppository as needed will not Imodium as needed Milk of magnesia as needed MiraLAX as needed Albuterol 2+ inhaled every 6 hours as needed Family History Unable to obtain from patient due to current clinical condition. Social History Currently no tobacco, alcohol or illicit drug use per EMR. Unable to review with patient due to current clinical condition. Records from longterm indicates he has a history of alcohol dependence in remission. Physical Exam Vital Signs Vital Signs Date Time Temp Pulse Resp B/P (MAP) Pulse Ox O2 Delivery O2 Flow Rate FiO2 08/21/17 22:25 95 35 08/21/17 19:20 96 30 08/21/17 19:07 88 15 119/56 (77) 97 Nasal Cannula 4.00 08/21/17 18:21 96 24 146/61 (89) 96 Nasal Cannula 4.00 08/21/17 16:22 88 22 138/79 (98) 99 Partial Rebreather 8.00 08/21/17 14:00 86 26 103/46 (65) 98 Partial Rebreather 10.00 08/21/17 12:20 96 50 08/21/17 11:11 91 22 136/77 (96) 10 Non-Rebreather 08/21/17 08:34 96 Non-Rebreather 15.00 08/21/17 08:34 96 24 127/79 (95) 96 Non-Rebreather 15.00 08/21/17 08:34 96 24 96 Non-Rebreather 15.00 08/21/17 08:34 96 24 127/79 (95) 96 Non-Rebreather 15.00 08/21/17 08:00 98 24 98/52 (67) 98 Non-Rebreather 15.00 08/21/17 07:40 98 Non-Rebreather 08/21/17 07:40 103 28 98 Non-Rebreather 08/21/17 07:40 101.1 103 28 95/62 (73) 95 Physical Exam GENERAL: Morbidly obese male who is in the ED stretcher on BiPAP. SKIN: Warm and dry, adequately perfused. HEAD: Atraumatic. Normocephalic. EYES: Pupils equal and round, 2 mm and reactive bilaterally. No scleral icterus. No injection or drainage. ENT: BiPAP mask in place. NECK: Very thick redundant neck. He would be unable to appreciate JVD. CARDIOVASCULAR: Distant heart sounds with Regular rate and rhythm. No murmurs rubs or gallops appreciated. RESPIRATORY: BiPAP mask in place. Diminished breath sounds bilaterally. No wheezes Rales or rhonchi. GASTROINTESTINAL: Abdomen obese. Ileal urostomy in place with light eder urine output. Reducible ventral hernia to left of urostomy. MUSCULOSKELETAL: Extremities without clubbing, cyanosis. Venous stasis changes bilateral lower extremities. NEUROLOGICAL: Arouses to voice and makes eye contact. Moves bilateral feet to commands. No obvious cranial nerve deficits. Unable to assess speech with BiPAP mask in place. Laboratory Laboratory Tests Test 08/21/17 07:10 08/21/17 08:00 08/21/17 08:20 08/21/17 09:33 White Blood Count 16.4 Red Blood Count 3.88 Hemoglobin 11.9 Hematocrit 35.8 Mean Corpuscular Volume 92.5 Mean Corpuscular Hemoglobin 30.8 Mean Corpuscular Hemoglobin Concent 33.3 Red Cell Distribution Width 15.0 Platelet Count 90 Mean Platelet Volume 9.6 Neutrophils (%) (Auto) 87.2 Lymphocytes (%) (Auto) 4.2 Monocytes (%) (Auto) 8.5 Eosinophils (%) (Auto) 0.0 Basophils (%) (Auto) 0.1 Neutrophils # (Auto) 14.3 Lymphocytes # (Auto) 0.7 Monocytes # (Auto) 1.4 Eosinophils # (Auto) 0.0 Basophils # (Auto) 0.0 CBC Comment AUTO DIFF Differential Total Cells Counted 100 Neutrophils % (Manual) 51 Band Neutrophils % 38 Lymphocytes % 2 Monocytes % 9 Neutrophils # (Manual) 14.6 Differential Comment FINAL DIFF MANUAL Platelet Estimate LOW Platelet Morphology Comment NORMAL Prothrombin Time 11.5 Prothromb Time International Ratio 1.1 Activated Partial Thromboplast Time 28.0 Blood Urea Nitrogen 41 Creatinine 1.74 Random Glucose 118 Total Protein 6.2 Albumin 2.4 Calcium Level 7.8 Magnesium Level 2.0 Alkaline Phosphatase 70 Aspartate Amino Transf (AST/SGOT) 48 Alanine Aminotransferase (ALT/SGPT) 56 Total Bilirubin 1.0 Sodium Level 131 Potassium Level 4.6 Chloride Level 95 Carbon Dioxide Level 28.1 Anion Gap 8 Estimat Glomerular Filtration Rate 38 Total Creatine Kinase 126 Creatine Kinase MB 3.1 Troponin I 0.05 Lipase 92 Lactic Acid Level 2.5 Urine Color EDER Urine Turbidity CLOUDY Urine pH 8.0 Urine Specific Jennings 1.016 Urine Protein 30 Urine Glucose (UA) NEG Urine Ketones NEG Urine Occult Blood NEG Urine Nitrite NEG Urine Bilirubin NEG Urine Urobilinogen LESS THAN 2.0 Urine Leukocyte Esterase LARGE Urine RBC 7 Urine WBC 77 Urine Squamous Epithelial Cells 1 Urine Amorphous Sediment OCC Urine Bacteria FEW Urine Hyaline Casts 6 Urine Mucus FEW Microscopic Urinalysis Comment CATH-CULTURE IND Blood Gas Puncture Site RT RADIAL Blood Gas Patient Temperature 98.6 Blood Gas HCO3 24 Blood Gas Base Excess -1.2 Blood Gas Oxygen Saturation 97 Arterial Blood pH 7.29 Arterial Blood Partial Pressure CO2 52 Arterial Blood Partial Pressure O2 237 Arterial Blood Oxygen Content 14.5 Arterial Blood Carboxyhemoglobin 0.7 Arterial Blood Methemoglobin 1.4 Blood Gas Hemoglobin 10.2 Oxygen Delivery Device NRB MASK Blood Gas Liter Flow 15 Blood Gas Inspired Oxygen 100 Test 08/21/17 12:34 08/21/17 22:10 08/21/17 22:30 Lactic Acid Level 1.3 Blood Gas Puncture Site RT RADIAL Blood Gas Patient Temperature 98.6 Blood Gas HCO3 24 Blood Gas Base Excess -0.8 Blood Gas Oxygen Saturation 94 Arterial Blood pH 7.34 Arterial Blood Partial Pressure CO2 46 Arterial Blood Partial Pressure O2 86 Arterial Blood Oxygen Content 14.5 Arterial Blood Carboxyhemoglobin 1.0 Arterial Blood Methemoglobin 1.1 Blood Gas Hemoglobin 10.9 Oxygen Delivery Device BIPAP Blood Gas Ventilator Setting [id number] Blood Gas Inspired Oxygen 35 Date/Time Source Procedure Growth Status 08/21/17 07:11 Blood Peripheral Aerobic Blood Culture Pending Received 08/21/17 07:11 Blood Peripheral Anaerobic Blood Culture Pending Received 08/21/17 08:20 Nasal Aspirate Influenza Types A,B Antigen (NARENDRA) - Final NEGATIVE FOR FLU A AND B ANTIGEN.... Complete 08/21/17 08:20 Urine Catheterized Urine Legionella Antigen - Final PRESUMPTIVE NEGATIVE FOR LEGIONELLA P... Complete 08/21/17 08:20 Urine Catheterized Urine Streptococcus pneumoniae Antigen (M - Final PRESUMPTIVE NEGATIVE FOR STREPTOCOCCU... Complete Result Diagram: 08/21/17 0710 08/21/17 0710 Septic Shock Reassessment Septic shock perfusion: reassessment completed Assessment and Plan Problem List: (1) Respiratory failure with hypoxia and hypercapnia ICD Code: J96.91 - Respiratory failure, unspecified with hypoxia; J96.92 - Respiratory failure, unspecified with hypercapnia (2) Severe sepsis ICD Code: A41.9 - Sepsis, unspecified organism; R65.20 - Severe sepsis without septic shock Status: Acute (3) Thrombocytopenia ICD Code: D69.6 - Thrombocytopenia, unspecified Status: Resolved (4) HCAP (healthcare-associated pneumonia) ICD Code: J18.9 - HCAP (healthcare-associated pneumonia) Status: Acute (5) HTN (hypertension) ICD Code: I10 - Essential (primary) hypertension Status: Chronic (6) HLD (hyperlipidemia) ICD Code: E78.5 - Hyperlipidemia, unspecified Status: Chronic (7) H/O prostate cancer ICD Code: Z85.46 - Personal history of malignant neoplasm of prostate Status: Resolved (8) Morbid obesity with BMI of 60.0-69.9, adult ICD Code: E66.01 - Morbid (severe) obesity due to excess calories; Z68.44 - Body mass index (BMI) 60.0-69.9, adult Status: Chronic Assessment and Plan NEURO: Ischemic stroke with residual L hemiparesis. Dementia Insomnia PTSD Major depressive disorder Hard of hearing Namenda 10 mg by mouth twice a day Aricept 10 mg by mouth daily at bedtime Hold Seroquel 25 mg by mouth twice a day due to decreased mental status. Avoid sedatives. CT brain- encephalomalacia right parietal lobe. Atrophy. No acute intracranial abnormality. RESP: Acute hypercapnic and hypoxemic respiratory failure Obstructive sleep apnea Chronic bronchitis Allergic rhinitis On BiPAP. Has signed [facility] DNR indicating no intubation for respiratory arrest. No family contact DuoNeb every 4 hours. Albuterol every 2 hours as needed. Budesonide 0.5 q12 Continue Singulair 10 g by mouth daily at bedtime Chest x-ray 08/21 -cardiomegaly. Infiltrate left base. CV: Hypertension Hyperlipidemia Cardiomyopathy not otherwise specified (per [place] records) Paroxysmal atrial fibrillation (per [place] records) Currently in sinus rhythm Continue atorvastatin 40 mg by mouth daily at bedtime Continue aspirin 81 mg by mouth daily for secondary prevention of stroke Hold lisinopril 10 mg by mouth daily due to acute kidney injury Received 3 L normal saline bolus in the emergency department. Fluids are 0.9 NaCl@130 mL per hour. Currently mean arterial pressure is greater than 65 and lactic acid has cleared. Monitoring urine output. We'll initiate Levothroid if needed BNP is normal at 74. Follow-up 2-D echo GI: GERD Morbid obesity Reducible ventral hernia Nothing by mouth except meds until mental status improves Bowel regimen PPI FEN/RENAL: Hyponatremia, history of intermittent hyponatremia Acute kidney injury History of prostate cancer status post prostatectomy and cystectomy Monitor urine output. CPK is normal. Check renal ultrasound Replace electrolytes as indicated ID: Severe sepsis Healthcare associated pneumonia ?UTI Fever, leukocytosis, Chest x-ray with left lower lobe opacity. Influenza screen is negative. Patient has had symptoms over a week so will hold off on Tamiflu Urine Legionella and pneumococcal antigen negative. Continue broad-spectrum antibiotics with cefepime 08/21 #1, azithromycin 08/21 #1 , vancomycin 08/21 #1 (pharmacy consult for dosing) Blood culture 08/21 -pending Urine culture - pending HEME: Acute thrombocytopenia (? consumptive secondary to sepsis) History of prostate cancer status post prostatectomy History of bladder cancer status post cystectomy and ileal conduit Chronic anemia Monitor CBC Check extremity ultrasound in view of thrombocytopenia to evaluate for DVT. ENDO: Hypothyroidism On Synthroid 50 g by mouth daily f/u TSH PROPH: Received Lovenox 40 mg subcutaneous on 08/21. Further doses have been held per family medicine due to thrombocytopenia. Will evaluate the trend and follow-up ultrasound and consider resuming Lovenox. Pantoprazole 20 mg by mouth daily for stress ulcer prophylaxis and history of GERD ACCESS: Peripheral IV providing adequate access at this time. Will place central venous line if vasopressors or needed. [facility] DNR. Family medicine confirmed with patient on admission when he was alert and interactive. Level III consult Problem Qualifiers (1) Respiratory failure with hypoxia and hypercapnia: Qualified Codes: J96.01 - Acute respiratory failure with hypoxia; J96.02 - Acute respiratory failure with hypercapnia (2) HTN (hypertension): Qualified Codes: I10 - Essential (primary) hypertension (3) HLD (hyperlipidemia): Qualified Codes: E78.00 - Pure hypercholesterolemia, unspecified Camila Chaney MD Aug 21, 2017 22:40
--- NOTE | 2017-08-21 22:50 | RADRPT ---
EXAM DATE/TIME: 08/21/2017 22:23 [facility] COMPARISON: CHEST SINGLE AP, August 21, 2017, 7:50. INDICATIONS : Short of breath. MEDICAL HISTORY : Chronic obstructive pulmonary disease. SURGICAL HISTORY : None. ENCOUNTER: Subsequent ACUITY: 1 day PAIN SCORE: Non-responsive. LOCATION: Bilateral chest FINDINGS: Mild left base consolidation again noted and with probably an at least small pleural effusion. Right lung remains reasonably clear. I don't see a pneumothorax. Heart size stable, mildly enlarged. No pulmonary edema seen. CONCLUSION: Left base consolidation and small effusion without significant change. Chaparro Syed MD on August 21, 2017 at 22:47 Board Certified Radiologist. This report was verified electronically.
--- NOTE | 2017-08-21 22:58 | HHI.FPPN ---
Addendum to progress note ADDENDUM Reason for addendum: Additonal documentation Additional information Resident team paged by nurse due to patient with continual hypotension ranging from 80s-90s/40s and O2 saturations 89-94% despite having received fluids and on BiPAP machine, respectively. Patient responsive to painful stimuli. PE GEN: morbid obese male with laying in bed with BiPAP in place. Responsive to sternum rub. CARDIO: regular rate and rhythm, no m/g/r RESP: difficult to appreciate, O2 sat would increased to 95% when aroused Abd: obese abdomen, soft, normal BS EXT: No LE edema noted A/P: 77 yo M admitted for treatment of PNA and UTI. Patient more somnolent with increased BiPAP requirements, O2 saturations 89-94% and hypotension 90s/45. Orders -STAT ABG: pH 7.34, PCo2 46, Po2: 86, Hco3: 24, improved from prior study -gathering worker consulted, Dr. Chaney has assessed patient. Patient will be transferred to ICU. -hold Seroquel and other other sedative medications -f/u repeat CXR, BNP, echo, repeat CXR in the am -[facility] medicine day team Hilary Boyle MD, R1 Aug 21, 2017 22:58
[2017-08-21] MEDS ORDERED: ACETAMINOPHEN 325 MG TAB PO PRN (23:00)
--- NOTE | 2017-08-21 23:36 | RADRPT ---
EXAM DATE/TIME: 08/21/2017 23:15 [facility] COMPARISON: CT BRAIN W/O CONTRAST, June 10, 2017, 15:55. INDICATIONS : Altered mental status. RADIATION DOSE: 59.78 CTDIvol (mGy) MEDICAL HISTORY : Cerebrovascular disease. Hypertension. SURGICAL HISTORY : Prostatectomy. bladder removed, partial colon removed ENCOUNTER: Initial ACUITY: 1 day PAIN SCALE: 0/10 LOCATION: cranial TECHNIQUE: Multiple contiguous axial images were obtained of the head. Using automated exposure control and adj ustment of the mA and/or kV according to patient size, radiation dose was kept as low as reasonably a chievable to obtain optimal diagnostic quality images. DICOM format image data is available electro nically for review and comparison. FINDINGS: CEREBRUM: Atrophy. Encephalomalacia within the right parietal lobe. Small chronic lacunar infarction involving left thalamus. The ventricles are normal for age. No evidence of midline shift, mass lesion, hemorrh age or acute infarction. No extra-axial fluid collections are seen. POSTERIOR FOSSA: The cerebellum and brainstem are intact. The 4th ventricle is midline. The cerebellopontine angle i s unremarkable. EXTRACRANIAL: The visualized portion of the orbits is intact. SKULL: The calvaria is intact. No evidence of skull fracture. CONCLUSION: 1. No acute intracranial abnormality. 2. Atrophy. 3. Encephalomalacia of the right parietal lobe suggesting prior infarction. Bryan Hernandez Jr., MD on August 21, 2017 at 23:31 Board Certified Radiologist. This report was verified electronically.
[2017-08-22] VITALS (24 sets, daily range): BP systolic 97–117; BP diastolic 44–59; PULSE 84–98; RESP 17–22; TEMP 97.5–98.4; O2SAT 93–99
[2017-08-22] MEDS ORDERED: CHLORHEXIDINE GLUCONATE 2 % 1 PACK (2 CLOTHS)(extra cloths) TOPICAL PRN (03:15)
[2017-08-22] MEDS: CHLORHEXIDINE GLUCONATE 2 % 1 PACK (2 CLOTHS)(taper/protocol) TOPICAL SCH (04:00)
--- NOTE | 2017-08-22 05:09 | RADRPT ---
EXAM DATE/TIME: 08/22/2017 03:48 [facility] COMPARISON: CHEST SINGLE AP, August 21, 2017, 22:23. INDICATIONS : Short of breath. MEDICAL HISTORY : Chronic obstructive pulmonary disease. SURGICAL HISTORY : None. ENCOUNTER: Subsequent ACUITY: 2 days PAIN SCORE: 0/10 LOCATION: Bilateral chest FINDINGS: A single portable frontal view of the chest shows a persistent opacity within left base. A tiny left effusion is suspected. Right lung is clear. Heart is mildly enlarged. Degenerative thoracic spine. Ap pearance is unchanged. CONCLUSION: Unchanged left lower lobe infiltrate and tiny effusion. Cardiomegaly. Bryan Hernandez Jr., MD on August 22, 2017 at 5:07 Board Certified Radiologist. This report was verified electronically.
[2017-08-22] MEDS: LEVOTHYROXINE SODIUM 50 MCG TAB PO SCH (06:00)
[2017-08-22] MEDS: RESP: ALBUTEROL 2.5 MG/IPRATROPIUM 0.5 MG NEB (SCH) INH ×5 (07:38→23:20)
[2017-08-22] MEDS: RESP: BUDESONIDE 0.5 MG/2 ML NEB NEB SCH ×2 (07:38→19:29)
[2017-08-22] MEDS: SODIUM CHLOR 0.9% 1000 ML INJ 1,000 ML IV SCH ×3 (08:01→14:48)
[2017-08-22] MEDS: SODIUM CHLORIDE 0.9% FLUSH 10 ML FLUSH IV FLUSH SCH ×2 (08:02→21:10)
[2017-08-22] MEDS: CEFEPIME INJ 2,000 MG in SODIUM CHLORIDE 0.9% INJ 100 ML IV SCH ×4 (08:22→15:36)
[2017-08-22 08:31] LABS: AUTOMATED NEUTROPHIL # 10.3 TH/MM3 (1.8-7.7); BASOPHIL % 0.2 % (0.0-2.0); EOSINOPHIL % 0.4 % (0.0-4.0); HEMATOCRIT 36.3 % (39.0-51.0); HEMOGLOBIN 12.2 GM/DL (13.0-17.0); LYMPH % 7.5 % (9.0-44.0); LYMPHOCYTE # 0.9 TH/MM3 (1.0-4.8); MEAN CELL VOLUME 93.6 FL (80.0-100.0); MEAN CORPUSCULAR HEMOGLOBIN 31.5 PG (27.0-34.0); MEAN CORPUSCULAR HGB CONC 33.7 % (32.0-36.0); MEAN PLATELET VOLUME 9.4 FL (7.0-11.0); MONO % 10.1 % (0.0-8.0); MONOCYTE # 1.3 TH/MM3 (0-0.9); NEUT % 81.8 % (16.0-70.0); PLATELET COUNT 90 TH/MM3 (150-450); RED BLOOD COUNT 3.88 MIL/MM3 (4.50-5.90); RED CELL DISTRIBUTION WIDTH 15.2 % (11.6-17.2); WHITE BLOOD COUNT 12.6 TH/MM3 (4.0-11.0)
[2017-08-22 08:59] LABS: ALBUMIN 2.2 GM/DL (3.4-5.0); ALT (GPT) 48 U/L (12-78); AST (GOT) 38 U/L (15-37); BICARBONATE 25.5 MEQ/L (21.0-32.0); BLOOD UREA NITROGEN 30 MG/DL (7-18); CALCIUM 8.5 MG/DL (8.5-10.1); CHLORIDE 104 MEQ/L (98-107); CREATININE 0.83 MG/DL (0.60-1.30); GLOMERULAR FILTRATION RATE 90 ML/MIN (>89); GLUCOSE,RANDOM 88 MG/DL (74-106); SODIUM (NA) 139 MEQ/L (136-145)
[2017-08-22] MEDS: PANTOPRAZOLE SOD 20 MG DELAYED RELEASE TAB PO SCH (09:00)
[2017-08-22] MEDS: MEMANTINE HCL 10 MG TAB PO SCH ×3 (09:00→21:15)
[2017-08-22] MEDS: ASPIRIN EC 81 MG TABEC PO SCH (09:00)
[2017-08-22] MEDS: DOCUSATE SODIUM 50 MG/SENNA 8.6 MG TAB PO SCH ×2 (09:00→21:11)
[2017-08-22] MEDS ORDERED: LISINOPRIL 10 MG TAB PO SCH (09:00)
[2017-08-22 09:09] LABS: ALKALINE PHOSPHATASE 71 U/L (45-117); RANDOM VANCOMYCIN 6.1 COMMENT; TOTAL BILIRUBIN ADULT 0.5 MG/DL (0.2-1.0); TOTAL PROTEIN 6.2 GM/DL (6.4-8.2)
[2017-08-22 09:34] LABS: BANDS 11 % (0-6); LYMPHOCYTES 6 % (9-44); MONOCYTES 4 % (0-8); NEUTROPHIL # MANUAL DIFF 11.3 TH/MM3 (1.8-7.7); POLYS (SEG NEUTROPHILS) 79 % (16-70)
--- NOTE | 2017-08-22 10:37 | HHI.CCPN ---
Subjective Remarks/Hospital Course 77 WM with past medical history of hypertension, ischemic stroke 05/2017 for which he received TPA, paroxysmal atrial fibrillation, prostate cancer status post prostatectomy, bladder cancer status post cystectomy with ileal conduit, hypertension, obstructive sleep apnea, obesity who presented to [facility] emergency department via [facility] from [facility] complaining of shortness of breath. He was febrile to 101.1 with white blood cell count of 16. Chest x-ray demonstrated left lower lobe consolidation. Influenza screen was negative. He was admitted to family medicine service. He reported to them that he had a one week history of productive cough. He was administered broad- spectrum antibiotics including vancomycin, cefepime, azithromycin. He had hypercapnic respiratory failure with pH of 7.29/PaCO2 52/PA O2 of 237/ bicarbonate 24. He was placed on BiPAP 25/01 35%. His most recent ABG demonstrates pH of 7.34/PaCO2 46/PA O2 of 86. Critical care medicine is consulted to assist with management of severe sepsis and respiratory failure requiring BiPAP. He has a [facility] DNR. There is no contact information for family and patient is currently unable to provide it. 08/22 Patient is on BIPAP 05/19 with 35% FIO2. T:101.0 Objective Vital Signs Date Time Temp Pulse Resp B/P (MAP) Pulse Ox O2 Delivery O2 Flow Rate FiO2 08/22/17 07:38 98 35 08/22/17 06:00 98 08/22/17 03:04 97.5 20 109/51 (70) 08/22/17 02:45 4.00 08/22/17 02:05 BiPAP Intake and Output 08/22/17 08/22/17 08/22/17 07:59 15:59 23:59 Intake Total 100 ml Output Total 550 ml Balance -450 ml Result Diagram: 08/22/17 0805 08/22/17 0805 Other Results Laboratory Tests Test 08/21/17 12:34 08/21/17 22:10 08/21/17 22:30 08/22/17 03:30 Lactic Acid Level 1.3 mmol/L Blood Gas Puncture Site RT RADIAL Blood Gas Patient Temperature 98.6 Blood Gas HCO3 24 mmol/L Blood Gas Base Excess -0.8 mmol/L Blood Gas Oxygen Saturation 94 % Arterial Blood pH 7.34 Arterial Blood Partial Pressure CO2 46 mmHg Arterial Blood Partial Pressure O2 86 mmHG Arterial Blood Oxygen Content 14.5 Vol % Arterial Blood Carboxyhemoglobin 1.0 % Arterial Blood Methemoglobin 1.1 % Blood Gas Hemoglobin 10.9 G/DL Oxygen Delivery Device BIPAP Blood Gas Ventilator Setting [id number] Blood Gas Inspired Oxygen 35 % B-Type Natriuretic Peptide 74 PG/ML Test 08/22/17 08:05 White Blood Count 12.6 TH/MM3 Red Blood Count 3.88 MIL/MM3 Hemoglobin 12.2 GM/DL Hematocrit 36.3 % Mean Corpuscular Volume 93.6 FL Mean Corpuscular Hemoglobin 31.5 PG Mean Corpuscular Hemoglobin Concent 33.7 % Red Cell Distribution Width 15.2 % Platelet Count 90 TH/MM3 Mean Platelet Volume 9.4 FL Neutrophils (%) (Auto) 81.8 % Lymphocytes (%) (Auto) 7.5 % Monocytes (%) (Auto) 10.1 % Eosinophils (%) (Auto) 0.4 % Basophils (%) (Auto) 0.2 % Neutrophils # (Auto) 10.3 TH/MM3 Lymphocytes # (Auto) 0.9 TH/MM3 Monocytes # (Auto) 1.3 TH/MM3 Eosinophils # (Auto) 0.0 TH/MM3 Basophils # (Auto) 0.0 TH/MM3 CBC Comment AUTO DIFF Differential Total Cells Counted 100 Neutrophils % (Manual) 79 % Band Neutrophils % 11 % Lymphocytes % 6 % Monocytes % 4 % Neutrophils # (Manual) 11.3 TH/MM3 Differential Comment FINAL DIFF MANUAL Platelet Estimate LOW Platelet Morphology Comment NORMAL Blood Urea Nitrogen 30 MG/DL Creatinine 0.83 MG/DL Random Glucose 88 MG/DL Total Protein 6.2 GM/DL Albumin 2.2 GM/DL Calcium Level 8.5 MG/DL Alkaline Phosphatase 71 U/L Aspartate Amino Transf (AST/SGOT) 38 U/L Alanine Aminotransferase (ALT/SGPT) 48 U/L Total Bilirubin 0.5 MG/DL Sodium Level 139 MEQ/L Potassium Level 4.5 MEQ/L Chloride Level 104 MEQ/L Carbon Dioxide Level 25.5 MEQ/L Anion Gap 10 MEQ/L Estimat Glomerular Filtration Rate 90 ML/MIN Lactic Acid Level 1.8 mmol/L Thyroid Stimulating Hormone 3rd Gen 1.630 uIU/ML Random Vancomycin Level 6.1 COMMENT Imaging Last Impressions Chest X-Ray 08/22/17 0600 Signed Impressions: Service Date/Time: Tuesday, August 22, 2017 03:48 - CONCLUSION: Unchanged left lower lobe infiltrate and tiny effusion. Cardiomegaly. Bryan Hernandez Jr., MD Head CT 08/21/17 0000 Signed Impressions: Service Date/Time: Monday, August 21, 2017 23:15 - CONCLUSION: 1. No acute intracranial abnormality. 2. Atrophy. 3. Encephalomalacia of the right parietal lobe suggesting prior infarction. Bryan Hernandez Jr., MD Objective Remarks GENERAL: Morbidly obese male on BiPAP. SKIN: Warm and dry, adequately perfused. HEAD: Atraumatic. Normocephalic. EYES: Pupils equal and round, 2 mm and reactive bilaterally. No scleral icterus. No injection or drainage. ENT: BiPAP mask in place. NECK: Very thick redundant neck. He would be unable to appreciate JVD. CARDIOVASCULAR: Distant heart sounds with Regular rate and rhythm. No murmurs rubs or gallops appreciated. RESPIRATORY: BiPAP mask in place. Diminished breath sounds bilaterally. No wheezes Rales or rhonchi. GASTROINTESTINAL: Abdomen obese. Ileal urostomy in place with light eder urine output. Reducible ventral hernia to left of urostomy. MUSCULOSKELETAL: Extremities without clubbing, cyanosis. Venous stasis changes bilateral lower extremities. NEUROLOGICAL: Arouses to voice and makes eye contact. Moves bilateral feet to commands. No obvious cranial nerve deficits. Unable to assess speech with BiPAP mask in place. A/P Problem List: (1) Respiratory failure with hypoxia and hypercapnia ICD Code: J96.91 - Respiratory failure, unspecified with hypoxia; J96.92 - Respiratory failure, unspecified with hypercapnia (2) Severe sepsis ICD Code: A41.9 - Sepsis, unspecified organism; R65.20 - Severe sepsis without septic shock Status: Acute (3) Morbid obesity with BMI of 45.0-49.9, adult ICD Code: E66.01 - Morbid (severe) obesity due to excess calories; Z68.42 - Body mass index (BMI) 45.0-49.9, adult Status: Chronic (4) Thrombocytopenia ICD Code: D69.6 - Thrombocytopenia, unspecified Status: Acute (5) HCAP (healthcare-associated pneumonia) ICD Code: J18.9 - HCAP (healthcare-associated pneumonia) Status: Acute (6) HTN (hypertension) ICD Code: I10 - Essential (primary) hypertension Status: Chronic (7) HLD (hyperlipidemia) ICD Code: E78.5 - Hyperlipidemia, unspecified Status: Chronic (8) H/O prostate cancer ICD Code: Z85.46 - Personal history of malignant neoplasm of prostate Status: Resolved Assessment and Plan NEURO: Ischemic stroke with residual L hemiparesis. Dementia Insomnia PTSD Major depressive disorder Hard of hearing Namenda 10 mg by mouth twice a day Aricept 10 mg by mouth daily at bedtime Hold Seroquel 25 mg by mouth twice a day due to decreased mental status. Avoid sedatives. CT brain- encephalomalacia right parietal lobe. Atrophy. No acute intracranial abnormality. RESP: Acute hypercapnic and hypoxemic respiratory failure Obstructive sleep apnea Chronic bronchitis Allergic rhinitis On BiPAP. Has signed [facility] DNR indicating no intubation for respiratory arrest. No family contact Continue with oxygen keep sats >92% DuoNeb every 4 hours. Albuterol every 2 hours as needed. Budesonide 0.5 q12 Continue Singulair 10 g by mouth daily at bedtime Chest x-ray 08/21 -cardiomegaly. LLL infiltrate CV: Hypertension Hyperlipidemia Cardiomyopathy not otherwise specified (per [place] records) Paroxysmal atrial fibrillation (per [place] records) Monitor HR and BP keep MAP>65mmHg Continue atorvastatin 40 mg by mouth daily at bedtime Continue aspirin 81 mg by mouth daily for secondary prevention of stroke Received 3 L normal saline bolus in the emergency department. Decrease IVF NS75ml/hr Lactic acid cleared 1.8 BNP is normal at 74. Follow-up 2-D echo GI: GERD Morbid obesity Reducible ventral hernia Speech eval, diet per speech Bowel regimen PPI- Protonix 20mg daily FEN/RENAL: Hyponatremia, history of intermittent hyponatremia Acute kidney injury- improving History of prostate cancer status post prostatectomy and cystectomy Monitor renal function, I/O's, electrolytes replacement per protocol Renal function is improving with Cr: 0.8 from 1.74 Decrease IVF NS@75ml/hr, for US kidneys ID: Severe sepsis Gram positive bacteremia Healthcare associated pneumonia ?UTI Influenza screen is negative. Urine Legionella and pneumococcal antigen negative. Continue abx( cefepime ,, azithromycin, vancomycin ) Monitor for signs of infections . WBC is trending down. Blood culture 08/21 -Gram positive Cocci all 4 bottles, check BC x 2 sets today. ID eval. Urine culture - pending HEME: Acute thrombocytopenia (? consumptive secondary to sepsis) History of prostate cancer status post prostatectomy History of bladder cancer status post cystectomy and ileal conduit Chronic anemia Monitor CBC For ultrasound upper and lower ext. ENDO: Hypothyroidism On Synthroid 50 g by mouth daily TSH: 1.63 PROPH: Received Lovenox 40 mg subcutaneous on 08/21. Further doses have been held per family medicine due to thrombocytopenia. Protonix 20 mg daily for stress ulcer prophylaxis and history of GERD ACCESS: Peripheral IV providing adequate access at this time. Patient rescinded DNR and now is full code. Level 2 Problem Qualifiers (1) Respiratory failure with hypoxia and hypercapnia: Qualified Codes: J96.01 - Acute respiratory failure with hypoxia; J96.02 - Acute respiratory failure with hypercapnia Sushma Souza MD Aug 22, 2017 10:37
--- NOTE | 2017-08-22 12:08 | HHI.FPPN ---
Subjective Remarks Patient was seen and examined this morning. Overnight, he was noted to have hypoxia and hypotension despite aggressive IVF and BiPap and was transfer to [facility] for closer monitoring. He remains on BiPap with goal O2 sats with MAPs ranging from 60s-70s at time of evaluation. He denies chest pain. When asked about goals of care he states that he would like for us to give pressors and intubate if needed, which is different from his reported goals of care at admission yesterday. (Stacy Sampson MD) Objective Vitals Vital Signs Date Time Temp Pulse Resp B/P (MAP) Pulse Ox O2 Delivery O2 Flow Rate FiO2 08/22/17 08:00 84 08/22/17 07:38 98 35 08/22/17 07:00 97.9 90 17 103/44 (63) 98 08/22/17 06:00 98 08/22/17 04:45 93 35 08/22/17 04:00 88 08/22/17 03:04 97.5 86 20 109/51 (70) 99 08/22/17 02:50 98 35 08/22/17 02:45 95 4.00 08/22/17 02:05 90 21 101/51 (68) 96 BiPAP 08/22/17 01:55 96 35 08/22/17 00:11 85 21 97/44 (61) 97 BiPAP 08/21/17 23:34 78 21 100/49 (66) 96 BiPAP 08/21/17 22:25 95 35 08/21/17 19:20 96 30 08/21/17 19:07 88 15 119/56 (77) 97 Nasal Cannula 4.00 08/21/17 18:21 96 24 146/61 (89) 96 Nasal Cannula 4.00 08/21/17 16:22 88 22 138/79 (98) 99 Partial Rebreather 8.00 08/21/17 14:00 86 26 103/46 (65) 98 Partial Rebreather 10.00 08/21/17 12:20 96 50 I/O 08/21/17 08/21/17 08/21/17 08/22/17 08/22/17 08/22/17 07:00 15:00 23:00 07:00 15:00 23:00 Intake Total 2715 ml 100 ml Output Total 550 ml Balance 2715 ml -450 ml Intake IV Total 2715 ml 100 ml Output Urine Total 550 ml (Stacy Sampson MD) Result Diagram: 08/22/17 0805 08/22/17 0805 Imaging Last Impressions Chest X-Ray 08/22/17 0600 Signed Impressions: Service Date/Time: Tuesday, August 22, 2017 03:48 - CONCLUSION: Unchanged left lower lobe infiltrate and tiny effusion. Cardiomegaly. Bryan Hernandez Jr., MD Head CT 08/21/17 0000 Signed Impressions: Service Date/Time: Monday, August 21, 2017 23:15 - CONCLUSION: 1. No acute intracranial abnormality. 2. Atrophy. 3. Encephalomalacia of the right parietal lobe suggesting prior infarction. Bryan Hernandez Jr., MD Objective Remarks GENERAL: This is a well-nourished, well-developed male patient. Obese and wearing BiPap mask. Responsive but tired. States that left arm is tender. NEURO: Awake, alert, oriented to person, place, and year. Moves all extremities. SKIN: Cool and dry. No ecchymoses. Examined 08/21/2017: Small ~1 cm right buttock mild skin breakdown 2 inches from lower back. There is global sacral non -blanching erythema with no areas of breakdown. Right upper inner thigh noted to have area of irritation where catheter tubing sits. Scattered healing excoriated papules on the right outer thigh noted. Hyperpigmentation noted at bilateral lower extremities (distal half). No signs of skin infections. HEAD: Atraumatic. Normocephalic. No temporal or scalp tenderness. EYES: No scleral icterus. Mild physiologic drainage. ENT: Nose without bleeding or purulent drainage. Lips dry. Upper and lower dentures noted. NECK: Very large neck with redundant skin. No obvious JVD or lymphadenopathy. Nontender, no meningeal signs. CARDIOVASCULAR: Regular rate and rhythm without murmurs, gallops, or rubs. Heart sounds distant due to body habitus. RESPIRATORY: Transmitted breath sounds throughout. Bipap. No wheezes. GASTROINTESTINAL: Abdomen obese. Non-tender. Ventral hernia noted on left lower abdomen. GENITOURO: Urostomy tube with site approximately mid-abdomen with colostomy bag in place. Skin is clean with no breakdown, Urine is dark but significantly improved from yesterday. MUSCULOSKELETAL: Left hand moderated edematous with IV site proximal to hand not showing signs of infiltration. Mild tenderness to palpation of left wrist. Extremities without clubbing, cyanosis, or edema. No joint tenderness, effusion , or edema noted. No calf tenderness. Medications and IVs Inpatient Medications Acetaminophen (Tylenol) 650 mg Q4H PRN PO TEMP > 100.4; Start 08/21/17 at 23:00 Albuterol Sulfate (Albuterol Neb) 2.5 mg Q2HR NEB PRN INH SHORTNESS OF BREATH; Start 08/21/17 at 12:00 Albuterol/ Ipratropium (Duoneb Neb) 1 ampule Q4HR NEB INH Last administered on 08/22/17 07:38; Start 08/22/17 at 08:00 Aspirin (Ecotrin Ec) 81 mg DAILY PO Last administered on 08/21/17at 12:00; Start 08/21/17 at 12:00 Atorvastatin Calcium (Lipitor) 40 mg HS PO Last administered on 08/21/17at 21:51 ; Start 08/21/17 at 21:00 Azithromycin 500 mg/Sodium Chloride 250 ml @ 250 mls/hr Q24H IV Last administered on 08/21/17at 13:00; Start 08/21/17 at 13:00 Bisacodyl (Dulcolax Supp) 10 mg DAILY PRN RECTAL SEVERE CONSITIPATION; Start at 11:00 Budesonide (Pulmicort Respule Neb) 0.5 mg Q12HR NEB NEB Last administered on at 07:38; Start 08/21/17 at 12:00 Cefepime HCl 2000 mg/Sodium Chloride 100 ml @ 200 mls/hr Q8H IV Last administered on 08/22/17at 08:22; Start 08/21/17 at 16:00 Chlorhexidine Gluconate (Chlorhexidine 2% Cloth) 3 pack UNSCH PRN TOPICAL HYGIENIC CARE; Start 08/22/17 at 03:15; Stop 08/27/17 at 03:09 Donepezil HCl (Aricept) 10 mg HS PO Last administered on 08/21/17at 21:52; Start 08/21/17 at 21:00 Enoxaparin Sodium (Lovenox Inj) 40 mg Q24H SQ Last administered on 08/21/17at 12 :00; Start 08/21/17 at 12:00; Status Future Hold Lactulose (Lactulose Liq) 30 ml DAILY PRN PO SEVERE CONSITIPATION; Start at 11:00 Levothyroxine Sodium (Synthroid) 50 mcg DAILY@0600 PO ; Start 08/22/17 at 06:00 Lisinopril (Prinivil) 10 mg DAILY PO ; Start 08/22/17 at 09:00; Status Future Hold Lorazepam (Ativan) 0.5 mg Q8H PRN PO ANXIETY; Start 08/21/17 at 11:00; Status Future Hold Magnesium Hydroxide (Milk Of Magnesia Liq) 30 ml Q12H PRN PO Mild constipation ; Start 08/21/17 at 11:00; Stop 08/22/17 at 03:04; Status DC Memantine (Namenda) 10 mg BID PO ; Start 08/21/17 at 21:00 Miscellaneous Information Patient in critical care unit? Ass... [id number] ; Start 08/22/17 at 03:15 Montelukast Sodium (Singulair) 10 mg HS PO Last administered on 08/21/17at 21:52 ; Start 08/21/17 at 21:00 Naloxone HCl (Narcan Inj) 0.4 mg UNSCH PRN IV PUSH SEE LABEL COMMENTS; Start at 11:00 Non-Formulary Medication 1 cap HS PO ; Start 08/21/17 at 21:00; Stop 08/21/17 at 21:00; Status DC Ondansetron HCl (Zofran Inj) 4 mg Q6H PRN IVP NAUSEA OR VOMITING; Start at 11:00 Pantoprazole Sodium (Protonix) 20 mg DAILY PO ; Start 08/22/17 at 09:00 Pharmacy Profile Note 0 ml @ 0 mls/hr UNSCH OTHER ; Start 08/21/17 at 10:30 Quetiapine Fumarate (SEROquel) 25 mg BID PO Last administered on 08/21/17at 21: 51; Start 08/21/17 at 21:00; Status Future Hold Senna/Docusate Sodium (Jeimy-Colace) 1 tab BID PO Last administered on at 21:51; Start 08/21/17 at 21:00 Sennosides (Senokot) 17.2 mg Q12H PRN PO Moderate constipation; Start 08/21/17 at 12:00 Sodium Chloride 1,000 ml @ 75 mls/hr [id number] IV Last administered on at 08:02; Start 08/21/17 at 10:16 Sodium Chloride (NS Flush) 2 ml BID IV FLUSH Last administered on 08/22/17at 08: 02; Start 08/21/17 at 21:00 Vancomycin HCl 1500 mg/Sodium Chloride 515 ml @ 257.5 mls/ hr Q18H IV ; Start 08/22/17 at 14:00 (Stacy Sampson MD) Urinary Catheter: No (chronic urostomy) (Stacy Sampson MD) Vascular Central Line Catheter: No (Stacy Sampson MD) A/P Assessment and Plan Patient is a 77-year-old male admitted with severe sepsis, UTI, and pneumonia. He was initiated admitted to inpatient [facility] but given altered mental status, worsening respiratory distress, and hypotension overnight was transferred to [facility] for possible pressor support. DNR revoked the morning of 08/22/2017, now FULL CODE. Prognosis unclear, patient status intermittently unstable over the last 24 hr. Critical Care consulted 08/21/2017, appreciate recommendations and management. Patient was seen and discussed with Drs. Ina Mascorro, Get Dubose, and Corin Morocho. Discharge Planning Anticipate at least another 2-3 day inpatient stay for IV antibiotics, respiratory support, culture assessment, fluid monitoring and support given SERGIO and UTI. (Stacy Sampson MD) Attending Attestation patient seen, examined and discussed with Drs. Cowan and his excellent Nurse Stephanie. He has been on BiPAP overnight. His mean arterial pressure was rather low but it is stable at this point. We had a new discussion regarding his goals of care, and he would like to be a full code at this point. We changed this in his orders and he is now designated thus. He appears to be mentally clear to make this decision. Nurse Stephanie placed a colostomy bag over his urostomy as his other system was leaking and this appears to be containing his urine. I agree with the findings and the plan as documented. (Ina Mascorro MD) Problem List: (1) Severe sepsis ICD Codes: A41.9 - Sepsis, unspecified organism; R65.20 - Severe sepsis without septic shock Status: Acute Plan: Continues to meet sepsis criteria, shock criteria met at time of ICU transfer. On admission, patient meeting severe sepsis criteria based on fever, RR and HR elevations, lactic acid >2, WBC 16K on admission. UA evident of infection, and AP CXR suggestive of RLL infiltrate. Suspected sources of UTI and PNA to be treated and monitored as follows: * Sepsis protocol: IVF bolus x 2 in ED. Now on fluids at 75cc/hr. Monitor for fluid overload as adjust as needed. Lactic acid normal on repeat * Recheck CBC and BMP daily. WBC improving. * Sputum culture pending. Urine Legionella and Pneumococcal Ag negative. Urine culture negative. Will monitor urine and blood cultures obtained 08/21/17, so far blood cultures positive for GPC x 3 bottles, and specifically MRSA x 1 bottle. Repeat blood cultures 08/22/2017 ordered * Rapid flu negative on admission. * Antibiotics: status-post IV Vancomycin 1g and Cefepime 2g x 1 in ED. Given indwelling catheter, urinary and respiratory sources of infection, and meeting severe sepsis criteria will continue IV Vancomycin (with pharmacy consult), Cefepime 2g IV qhr, and add Azithromycin 500mg IV daily (antibiotic start date ) * Hypotensive: goal MAP > 65. Not requiring pressors at this time. Critical Care consulted (2) UTI (urinary tract infection) ICD Codes: N39.0 - Urinary tract infection, site not specified Status: Acute Plan: History of MDRO UTI in 2013 and 2011. Has had chronic indwelling urostomy 7-8 years related to history of bladder cancer which increases risk of severe infection. Urine is dark brown at time of admission, reportedly cloudy prior to admission. UA showing eder color, large LE, 77 WBC, 7 RBCs but urine culture negative. * Management as above with aggressive IVF and antibiotics * Strict Is/Os q shift * Urine culture negative 08/21/2017 (3) PNA (pneumonia) ICD Codes: J18.9 - Pneumonia, unspecified organism Status: Acute Plan: PNA suspected given symptoms, CXR findings, and sepsis. Repeat CXR overnight on 08/21/2017 showing similar LLL infiltrate and cardiomegaly as initial study. Will give antibiotics as above for Severe Sepsis. Respiratory support as follows: * On admission required non-rebreather at 15L, now on BiPap. DNR CHANGED TO FULL CODE 08/22/2017 after conversation with patient, he states he would want intubation if indicated. ABG improved. * Goal is to treat respiratory and blood infections, wean to NC as tolerated, with goal O2 sat >92% with no respiratory distress * Duonebs increased to q4hr scheduled with albuterol nebs q2 hr PRN wheezing or SOB * Continue Pulmicort, Singular * Respiratory toilet PRN * Will obtain repeat CXR and/or chest CT if indicated by worsening respiratory status or worsening sepsis (4) Bacteremia due to Gram-positive bacteria ICD Codes: R78.81 - Bacteremia Status: Acute Plan: Plan as above for Severe Sepsis (5) SERGIO (acute kidney injury) ICD Codes: N17.9 - Acute kidney failure, unspecified Status: Resolved Plan: SERGIO noted on admission resolved. Baseline from previous hospitalization 0.7-0.9. Likely related to sepsis. Initially thought to be related to UTI but urine culture negative. * IVF as above * Monitor BMP closely * Avoid nephrotoxic agents * Kidney US ordered and pending (6) Troponin level elevated ICD Codes: R74.8 - Abnormal levels of other serum enzymes Status: Acute Plan: Troponin level is 0.05 on admission. No chest pain. EKG showing sinus rhythm, rate ~100. No signs of ST changes, T wave changes, or heart block. Troponin elevation possibly related to sepsis, SERGIO. Takes daily aspirin, will continue. * BNP normal * 2D echo pending (7) Thrombocytopenia ICD Codes: D69.6 - Thrombocytopenia, unspecified Status: Acute Plan: Stable at 90K today, will monitor platelet count and hold prophylactic anticoagulation at this time. Did receive one dose of Lovenox on 08/21/2017 after labs were drawn that day. (8) Altered mental status ICD Codes: R41.82 - Altered mental status Status: Resolved Plan: Altered mental status noted on admission documentation, however, no AMS noted on exam. Mental status fluctuates; did have worsening AMS overnight on 05/2018 but resolved, possibly this was related to hypoxia. Does have recent history of CVA and was at SNF for rehab at time of this admission. * Monitor via neuro checks q 4 hr * CT head obtained 08/21/2017 showing chronic age-related changes with no acute bleed. No signs of infection or ischemia. * Hold home Seroquel, Continue Namenda 10mg PO BID and Aricept 10 mg PO hs (9) Hypothyroidism ICD Codes: E03.9 - Hypothyroidism, unspecified Status: Chronic Plan: On Synthroid 50micrograms daily, continue. TSH 1.63 (10) Paroxysmal atrial fibrillation ICD Codes: I48.0 - Paroxysmal atrial fibrillation Status: Chronic Plan: Per group home records. Rate controlled at this time. Monitor on tele (11) Fluids/Electrolytes/Nutrition/Prophylaxis Status: Acute Plan: Fluids: NS @ 75ml/hr Electrolytes: monitor and replete as needed Nutrition: Nothing by mouth for now, will assess respiratory function and advance to regular diet as tolerated DVT Prophylaxis: Early ambulation. Hold Lovenox due to thrombocytopenia GI Prophylaxis: Protonix 20mg IV daily PRN anti-HTN: Hold home antihypertensive for now given sepsis with hypotension, will monitor (Stacy Sampson MD) Problem Qualifiers (1) UTI (urinary tract infection): Qualified Codes: N39.0 - Urinary tract infection, site not specified; R31.9 - Hematuria, unspecified (2) PNA (pneumonia): Qualified Codes: J18.1 - Lobar pneumonia, unspecified organism (3) Hypothyroidism: Qualified Codes: E03.9 - Hypothyroidism, unspecified Stacy Sampson MD Aug 22, 2017 12:08 Ina Mascorro MD Aug 22, 2017 14:12
--- NOTE | 2017-08-22 14:09 | PD.ID.CON ---
History of Present Illness Service ID Consult Requested By Dr. Souza Reason for Consult Evaluation and Mment of Sepsis and MRSA bacteremia. Primary Care Physician David Lopez M.D. Diagnoses: History of Present Illness Most of the history was obtained from review of medical records as patient was on BiPAP and would desat. is a 77 y/o WM with past medical history of hypertension, ischemic stroke in May 2305/2017 for which he received TPA. His past medical history is also significant for paroxysmal atrial fibrillation, Obstructive sleep apnea, HTN, Obesity. His past medical history is also significant for prostate cancer, status post prostatectomy, bladder cancer status post cystectomy with ileal conduit. Patient is a resident of [facility] and has a [facility] DNR. With this background, patient presented to [facility] emergency department via [facility] from [facility] complaining of shortness of breath. Upon presentation, patient was febrile to 101.1 with white blood cell count of 16. Chest x-ray demonstrated left lower lobe consolidation. Influenza screen was negative. Patient received broad-spectrum antibiotics including vancomycin, cefepime, azithromycin. He had hypercapnic respiratory failure with pH of 7.29/ PaCO2 52/PA O2 of 237/bicarbonate 24. He was placed on BiPAP 16/8 35%. His most recent ABG demonstrates pH of 7.34/PaCO2 46/PA O2 of 86. Critical care medicine is consulted to assist with management of severe sepsis and respiratory failure requiring BiPAP. Blood cultures done on admission are positive for MRSA and ID consulted for Sepsis and MRSA bacteremia. Review of Systems ROS Limitations: Poor Historian Constitutional: COMPLAINS OF: Fever, DENIES: Diaphoretic episodes, Fatigue, Weight gain, Weight loss, Chills, Dizziness, Change in appetite, Night Sweats Endocrine: DENIES: Heat/cold intolerance, Polydipsia, Polyuria, Polyphagia Eyes: DENIES: Blurred vision, Diplopia, Eye inflammation, Eye pain, Vision loss , Photosensitivity, Double Vision Ears, nose, mouth, throat: DENIES: Tinnitus, Hearing loss, Vertigo, Nasal discharge, Oral lesions, Throat pain, Hoarseness, Ear Pain, Running Nose, Epistaxis, Sinus Pain, Toothache, Odynophagia Respiratory: COMPLAINS OF: Cough, Snoring, Sputum production, DENIES: Apneas, Wheezing, Hemoptysis, Shortness of breath Cardiovascular: DENIES: Chest pain, Palpitations, Syncope, Dyspnea on Exertion , PND, Lower Extremity Edema, Orthopnea, Claudication Gastrointestinal: DENIES: Abdominal pain, Black stools, Bloody stools, Constipation, Diarrhea, Nausea, Vomiting, Difficulty Swallowing, Anorexia Genitourinary: DENIES: Sexual dysfunction, Urinary frequency, Urinary incontinence, Urgency, Hematuria, Dysuria, Nocturia, Penile Discharge, Testicular Pain, Testicular Swelling Musculoskeletal: DENIES: Joint pain, Muscle aches, Stiffness, Joint Swelling, Back pain, Neck pain Integumentary: DENIES: Abnormal pigmentation, Nail changes, Pruritus, Rash Hematologic/lymphatic: DENIES: Bruising, Lymphadenopathy Immunologic/allergic: DENIES: Eczema, Urticaria Neurologic: DENIES: Abnormal gait, Headache, Localized weakness, Paresthesias, Seizures, Speech Problems, Tremor, Poor Balance Psychiatric: DENIES: Anxiety, Confusion, Mood changes, Depression, Hallucinations, Agitation, Suicidal Ideation, Homicidal Ideation, Delusions Except as stated in HPI: all other systems reviewed are Neg Past Family Social History Allergies: Coded Allergies: penicillin G (Unverified Allergy, Severe, as a child, 01/24/17) Past Medical History Ischemic stroke with residual L hemiparesis. 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 Dementia Chronic bronchitis PTSD Major depressive disorder Morbid Obesity Hypothyroidism Past Surgical History Partial colectomy/proctectomy Prostatectomy Hernia repair Cystectomy with ileal conduit Reported Medications Reported Meds & Active Scripts Active Lorazepam 0.5 Mg Tab 0.5 Mg PO Q8H PRN Aspirin DR (Aspirin) 81 Mg Tabdr 81 Mg PO DAILY Atorvastatin (Atorvastatin Calcium) 40 Mg Tab 40 Mg PO HS Reported Liquitears Opth (Polyvinyl Alcohol) 1.4% Soln Levothyroxine (Levothyroxine Sodium) 50 Mcg Tab 50 Mcg PO DAILY Budesonide Neb 0.5 Mg/2 Ml Neb 0.5 Mg NEB Q12HR NEB Lisinopril 10 Mg Tab 10 Mg PO DAILY Singulair (Montelukast Sodium) 10 Mg Tab 10 Mg PO HS Maalox Maximum Strength Susp (Mag Hydrox/Aluminum Hyd/Simeth) 400 Mg-400 Mg-40 Mg/5 Ml Oral.susp Quetiapine (Quetiapine Fumarate) 25 Mg Tab 25 Mg PO BID Omeprazole 20 Mg Tab 20 Mg PO DAILY Namzaric (Memantine-Donepezil) 28-10 Mg Cap 1 Cap PO HS Polyethylene Glycol 3350 Powder (Polyethylene Glycol) 17 Gram Pow 17 Gm PO DAILY PRN Milk of Magnesia Liq (Magnesium Hydroxide) 400 Mg/5 Ml Susp 30 Ml PO Q6H PRN Claritin (Loratadine) 10 Mg Cap 10 Mg PO DAILY Imodium A-D (Loperamide HCl) 2 Mg Capsule 4 Mg PO DIRECTED PRN One capsule after each loose stool. Not to exceed 8 tablets per day. Active Ordered Medications Current Medications Medications (Trade) Dose Ordered Sig/Rodolfo Route Start Time Stop Time Status Last Admin (NS Flush) 2 ml UNSCH PRN IV FLUSH 08/21/17 10:00 (NS Flush) 2 ml BID IV FLUSH 08/21/17 21:00 08/22/17 08:02 Sodium Chloride 1,000 ml @ 75 mls/hr [id number] IV 08/21/17 10:16 08/22/17 14:48 (Lovenox Inj) 40 mg Q24H SQ 08/21/17 12:00 Future Hold 08/21/17 12:00 Pharmacy Profile Note 0 ml @ 0 mls/hr UNSCH OTHER 08/21/17 10:30 Azithromycin 500 mg/Sodium Chloride 250 ml @ 250 mls/hr Q24H IV 08/21/17 13:00 08/22/17 14:47 (Albuterol Neb) 2.5 mg Q2HR NEB PRN INH 08/21/17 12:00 Cefepime HCl 2000 mg/Sodium Chloride 100 ml @ 200 mls/hr Q8H IV 08/21/17 16:00 08/22/17 15:36 (Ecotrin Ec) 81 mg DAILY PO 08/21/17 12:00 08/21/17 12:00 (Lipitor) 40 mg HS PO 08/21/17 21:00 08/21/17 21:51 (Pulmicort Respule Neb) 0.5 mg Q12HR NEB NEB 08/21/17 12:00 08/22/17 07:38 (Synthroid) 50 mcg DAILY@0600 PO 08/22/17 06:00 (Prinivil) 10 mg DAILY PO 08/22/17 09:00 Future Hold (Ativan) 0.5 mg Q8H PRN PO 08/21/17 11:00 Future Hold (Singulair) 10 mg HS PO 08/21/17 21:00 08/21/17 21:52 (SEROquel) 25 mg BID PO 08/21/17 21:00 Future Hold 08/21/17 21:51 (Protonix) 20 mg DAILY PO 08/22/17 09:00 (Jeimy-Colace) 1 tab BID PO 08/21/17 21:00 08/21/17 21:51 (Senokot) 17.2 mg Q12H PRN PO 08/21/17 12:00 (Dulcolax Supp) 10 mg DAILY PRN RECTAL 08/21/17 11:00 (Lactulose Liq) 30 ml DAILY PRN PO 08/21/17 11:00 (Tylenol) 650 mg Q4H PRN PO 08/21/17 23:00 (Zofran Inj) 4 mg Q6H PRN IVP 08/21/17 11:00 (Narcan Inj) 0.4 mg UNSCH PRN IV PUSH 08/21/17 11:00 (Namenda) 10 mg BID PO 08/21/17 21:00 (Aricept) 10 mg HS PO 08/21/17 21:00 08/21/17 21:52 (Duoneb Neb) 1 ampule Q4HR NEB INH 08/22/17 08:00 08/22/17 14:57 Miscellaneous Information Patient in critical care unit? Ass... Q361D .XX 08/22/17 03:15 (Chlorhexidine 2% Cloth) 3 pack DAILY@04 TOPICAL 08/22/17 04:00 08/26/17 04:01 08/22/17 04:00 (Chlorhexidine 2% Cloth) 3 pack UNSCH PRN TOPICAL 08/22/17 03:15 08/27/17 03:09 Vancomycin HCl 1500 mg/Sodium Chloride 515 ml @ 257.5 mls/ hr Q18H IV 08/22/17 14:00 08/22/17 15:36 Miscellaneous Information SPECIFIC LAB TO BE DRAWN:VANCO TROUGH DATE TO... ONCE ONCE .XX 08/24/17 19:45 08/24/17 19:46 Family History Could not be obtained. Social History Currently no tobacco, alcohol or illicit drug use per EMR. Unable to review with patient due to current clinical condition. Reportedly per [facility] records patient has a history of alcohol dependence in remission. Physical Exam Vital Signs Vital Signs Date Time Temp Pulse Resp B/P (MAP) Pulse Ox O2 Delivery O2 Flow Rate FiO2 08/22/17 12:00 97 35 08/22/17 10:00 88 08/22/17 08:00 84 08/22/17 07:38 98 35 08/22/17 07:00 97.9 90 17 103/44 (63) 98 08/22/17 06:00 98 08/22/17 04:45 93 35 08/22/17 04:00 88 08/22/17 03:04 97.5 86 20 109/51 (70) 99 08/22/17 02:50 98 35 08/22/17 02:45 95 4.00 08/22/17 02:05 90 21 101/51 (68) 96 BiPAP 08/22/17 01:55 96 35 08/22/17 00:11 85 21 97/44 (61) 97 BiPAP 08/21/17 23:34 78 21 100/49 (66) 96 BiPAP 08/21/17 22:25 95 35 08/21/17 19:20 96 30 08/21/17 19:07 88 15 119/56 (77) 97 Nasal Cannula 4.00 08/21/17 18:21 96 24 146/61 (89) 96 Nasal Cannula 4.00 08/21/17 16:22 88 22 138/79 (98) 99 Partial Rebreather 8.00 Physical Exam GENERAL: Morbidly, well-developed patient, in no apparent distress. SKIN: No rashes, ecchymoses or lesions. Cool and dry. HEAD: Atraumatic. Normocephalic. No temporal or scalp tenderness. EYES: Pupils equal round and reactive. Extraocular motions intact. No scleral icterus. No injection or drainage. ENT: Nose without bleeding, purulent drainage or septal hematoma. Throat without erythema, tonsillar hypertrophy or exudate. Uvula midline. Airway patent. NECK: Large neck, Trachea midline. Supple, nontender, no meningeal signs. CARDIOVASCULAR: Regular rate and rhythm without murmurs, gallops, or rubs. RESPIRATORY: Clear to auscultation. Breath sounds equal bilaterally. No wheezes , rales, or rhonchi. GASTROINTESTINAL: Abdomen soft, non-tender, nondistended. Ostomy site ok. MUSCULOSKELETAL: Extremities without clubbing, cyanosis, or edema. No joint tenderness, effusion, or edema noted. No calf tenderness. Negative Homans sign bilaterally. NEUROLOGICAL: Awake and alert. Cranial nerves II through XII intact. Motor and sensory grossly within normal limits. Five out of 5 muscle strength in all muscle groups. Normal speech. Laboratory Laboratory Tests Test 08/21/17 22:10 08/21/17 22:30 08/22/17 03:30 08/22/17 08:05 Blood Gas Puncture Site RT RADIAL Blood Gas Patient Temperature 98.6 Blood Gas HCO3 24 Blood Gas Base Excess -0.8 Blood Gas Oxygen Saturation 94 Arterial Blood pH 7.34 Arterial Blood Partial Pressure CO2 46 Arterial Blood Partial Pressure O2 86 Arterial Blood Oxygen Content 14.5 Arterial Blood Carboxyhemoglobin 1.0 Arterial Blood Methemoglobin 1.1 Blood Gas Hemoglobin 10.9 Oxygen Delivery Device BIPAP Blood Gas Ventilator Setting IPAP16 EPAP8 Blood Gas Inspired Oxygen 35 B-Type Natriuretic Peptide 74 Nasal Screen MRSA (PCR) MRSA DETECTED White Blood Count 12.6 Red Blood Count 3.88 Hemoglobin 12.2 Hematocrit 36.3 Mean Corpuscular Volume 93.6 Mean Corpuscular Hemoglobin 31.5 Mean Corpuscular Hemoglobin Concent 33.7 Red Cell Distribution Width 15.2 Platelet Count 90 Mean Platelet Volume 9.4 Neutrophils (%) (Auto) 81.8 Lymphocytes (%) (Auto) 7.5 Monocytes (%) (Auto) 10.1 Eosinophils (%) (Auto) 0.4 Basophils (%) (Auto) 0.2 Neutrophils # (Auto) 10.3 Lymphocytes # (Auto) 0.9 Monocytes # (Auto) 1.3 Eosinophils # (Auto) 0.0 Basophils # (Auto) 0.0 CBC Comment AUTO DIFF Differential Total Cells Counted 100 Neutrophils % (Manual) 79 Band Neutrophils % 11 Lymphocytes % 6 Monocytes % 4 Neutrophils # (Manual) 11.3 Differential Comment FINAL DIFF MANUAL Platelet Estimate LOW Platelet Morphology Comment NORMAL Blood Urea Nitrogen 30 Creatinine 0.83 Random Glucose 88 Total Protein 6.2 Albumin 2.2 Calcium Level 8.5 Alkaline Phosphatase 71 Aspartate Amino Transf (AST/SGOT) 38 Alanine Aminotransferase (ALT/SGPT) 48 Total Bilirubin 0.5 Sodium Level 139 Potassium Level 4.5 Chloride Level 104 Carbon Dioxide Level 25.5 Anion Gap 10 Estimat Glomerular Filtration Rate 90 Lactic Acid Level 1.8 Thyroid Stimulating Hormone 3rd Gen 1.630 Random Vancomycin Level 6.1 Date/Time Source Procedure Growth Status 08/22/17 11:25 Blood Peripheral Aerobic Blood Culture Pending Received 08/22/17 11:25 Blood Peripheral Anaerobic Blood Culture Pending Received 08/21/17 08:20 Nasal Aspirate Influenza Types A,B Antigen (NARENDRA) - Final NEGATIVE FOR FLU A AND B ANTIGEN.... Complete 08/21/17 08:20 Urine Catheterized Urine Legionella Antigen - Final PRESUMPTIVE NEGATIVE FOR LEGIONELLA P... Complete 08/21/17 08:20 Urine Catheterized Urine Streptococcus pneumoniae Antigen (M - Final PRESUMPTIVE NEGATIVE FOR STREPTOCOCCU... Complete Result Diagram: 08/22/17 0805 08/22/17 0805 Imaging Last Impressions Chest X-Ray 08/22/17 0600 Signed Impressions: Service Date/Time: Tuesday, August 22, 2017 03:48 - CONCLUSION: Unchanged left lower lobe infiltrate and tiny effusion. Cardiomegaly. Bryan Hernandez Jr., MD Upper Extremity Ultrasound 08/22/17 0000 Signed Impressions: Service Date/Time: Tuesday, August 22, 2017 09:18 - CONCLUSION: 1. No sonographic evidence for upper extremity DVT. Yazan Deleon MD Renal Ultrasound 08/22/17 0000 Signed Impressions: Service Date/Time: Tuesday, August 22, 2017 08:32 - CONCLUSION: 1. Nonobstructing renal calcifications. No hydronephrosis. Bladder removed. Wily Dunham MD Lower Extremity Ultrasound 08/22/17 0000 Signed Impressions: Service Date/Time: Tuesday, August 22, 2017 08:18 - CONCLUSION: Negative for DVT. Wily Dunham MD Head CT 08/21/17 0000 Signed Impressions: Service Date/Time: Monday, August 21, 2017 23:15 - CONCLUSION: 1. No acute intracranial abnormality. 2. Atrophy. 3. Encephalomalacia of the right parietal lobe suggesting prior infarction. Bryan Hernandez Jr., MD Assessment and Plan Assessment and Plan Severe Sepsis MRSA bacteremia Pneumonia possible MRSA pneumonia. Acute hypoxic respiratory failure on BiPAP Acute renal failure on admission: sepsis, prerenal. Bladder and Prostate cancer s/p prostatectomy, cystectomy and ileal conduit. Morbid Obesity BMI 49 kg/m2 Recs: Continue Cefepime IV Continue Vanco IV (target 15-20) DC Azithro Repeat Blood cultures x 2 Doppler Bilateral LE and UE negative. CXR left side pneumonia. Luz Arzola MD Aug 22, 2017 14:09
--- NOTE | 2017-08-22 14:27 | RADRPT ---
EXAM DATE/TIME: 08/22/2017 08:18 [facility] COMPARISON: None. INDICATIONS : Bilateral leg swelling. MEDICAL HISTORY : CVA. Atrial fibrillation. Prostate cancer. SURGICAL HISTORY : Hernia repair. Partial colon removal. Urostomy. Prostatectomy. Bladder removed. ENCOUNTER: Initial ACUITY: 1 day PAIN SCORE: 5/10 LOCATION: Bilateral legs. TECHNIQUE: Venous ultrasound of the left and right leg was performed from the inguinal ligament to the proximal calf. Real-time, color Doppler and spectral tracing, compression and augmentation techniques were us ed. FINDINGS: RIGHT LEG: There is normal compressibility of the deep venous system from the inguinal region to the proximal ca lf. No echogenic clot is seen in the lumen of the common femoral, femoral, popliteal, and posterior tibial veins. There is a normal response of the venous system to proximal and distal augmentation an d respiration. Normal examination. LEFT LEG: There is normal compressibility of the deep venous system from the inguinal region to the proximal ca lf. No echogenic clot is seen in the lumen of the common femoral, femoral, popliteal, and posterior tibial veins. There is a normal response of the venous system to proximal and distal augmentation an d respiration. CONCLUSION: Negative for DVT. Wily Dunham MD on August 22, 2017 at 14:24 Board Certified Radiologist. This report was verified electronically.
--- NOTE | 2017-08-22 14:31 | RADRPT ---
EXAM DATE/TIME: 08/22/2017 08:32 [facility] COMPARISON: None. INDICATIONS : <<Increased BUN/Creatinine. >> MEDICAL HISTORY : Hypertension. <<CVA. Atrial fibrillation. Prostate cancer. >> SURGICAL HISTORY : <<Hernia repair. Partial colon removal. Urostomy. Prostatectomy. Bladder removed. >> ENCOUNTER: Initial ACUITY: 1 day PAIN SCORE: 5/10 LOCATION: Bilateral flank MEASUREMENTS: Right kidney measures 10.5 x 6.4 x 5.8 cm. Left kidney measures 10.7 x 5.5 x 6 cm. FINDINGS: Small nonobstructing bilateral renal calcifications. Postoperative cystectomy. Drainage catheter pres ent in the pelvis. No hydronephrosis. CONCLUSION: 1. Nonobstructing renal calcifications. No hydronephrosis. Bladder removed. Wily Dunham MD on August 22, 2017 at 14:28 Board Certified Radiologist. This report was verified electronically.
--- NOTE | 2017-08-22 14:45 | RADRPT ---
EXAM DATE/TIME: 08/22/2017 09:18 [facility] COMPARISON: No previous studies available for comparison. INDICATIONS : Bilateral arm swelling. MEDICAL HISTORY : Hypertension. CVA. Atrial fibrillation. Prostate cancer. SURGICAL HISTORY : Hernia repair. Partial colon removal. Urostomy. Prostatectomy. Bladder removed. ENCOUNTER: Initial ACUITY: 1 day PAIN SCORE: 5/10 LOCATION: Bilateral arms. FINDINGS: RIGHT UPPER EXTREMITY: There is spontaneous flow documented in the brachial, basilic, cephalic, axillary, and subclavian vei ns. The vessels are compressible and augmentation response is documented. No filling defects are se en. The flow is phasic with respiration. Direction of flow in the jugular vein is caudal. LEFT UPPER EXTREMITY: There is spontaneous flow documented in the brachial, basilic, cephalic, axillary, and subclavian vei ns. The vessels are compressible and augmentation response is documented. No filling defects are se en. The flow is phasic with respiration. Direction of flow in the jugular vein is caudal. CONCLUSION: 1. No sonographic evidence for upper extremity DVT. Yazan Deleon MD on August 22, 2017 at 14:42 Board Certified Radiologist. This report was verified electronically.
[2017-08-22] MEDS: AZITHROMYCIN INJ 500 MG in SODIUM CHLOR 0.9% 250 ML INJ 250 ML IV SCH (14:47)
[2017-08-22] MEDS: VANCOMYCIN 1,500 MG/NS 500 ML IV SCH ×2 (15:36)
[2017-08-22 17:25] LABS: BACTERIA, URINE RARE /hpf; BILIRUBIN, URINE NEG (NEG); BLOOD, URINE TRACE (NEG); GLUCOSE,URINE NEG (NEG); KETONE, URINE 10 mg/dL (NEG); NITRITE,URINE NEG (NEG); RENAL EPITHELIAL CELLS <1 /hpf; URINE COLOR YELLOW (YELLW/STRAW); URINE LEUKOCYTE ESTERASE TRACE (NEG)
--- NOTE | 2017-08-22 17:42 | ECHRPT ---
Indication: HEART FAILURE CONCLUSIONS Normal left ventricular size. The left ventricular systolic function is normal with an estimated ejection fraction in the range of 60-65%. Moderate concentric left ventricular hypertrophy. The left atrial size is [id number] dilated. The right atrial size is mildly dilated. Moderate mitral annular calcification. Aortic valve sclerosis is present. Mild to moderate aortic valve stenosis. Mild aortic valve regurgitation. There is trace tricuspid valve regurgitation. BP: 109 / 51 HR: 86 Rhythm: Atrial fibrillation, Atrial flut ter MEASUREMENTS (Male / Female) Normal Values Technical Quality:Very technically difficult study 2D ECHO LV Diastolic Diameter PLAX 3.7 cm 4.2 - 5.9 / 3.9 - 5.3 cm LV Systolic Diameter PLAX 2.6 cm IVS Diastolic Thickness 1.7 cm 0.6 - 1.0 / 0.6 - 0.9 cm LVPW Diastolic Thickness 1.5 cm 0.6 - 1.0 / 0.6 - 0.9 cm LV Relative Wall Thickness 0.9 RV Internal Dim ED PLAX 2.8 cm LVOT Diameter 2.3 cm LA Systolic Diameter LX 3.8 cm 3.0 - 4.0 / 2.7 - 3.8 cm M-MODE Aortic Root Diameter MM 3.0 cm LA Systolic Diameter MM 4.1 cm LA Ao Ratio MM 1.4 AV Cusp Separation MM 0.9 cm DOPPLER AV Peak Velocity 305.2 cm/s AV Peak Gradient 37.3 mmHg AV Mean Gradient 18.6 mmHg AV Velocity Time Integral 51.3 cm LVOT Peak Velocity 98.1 cm/s LVOT Peak Gradient 3.8 mmHg LVOT Velocity Time Integral 17.6 cm LVOT Cardiac Index 2459.3 cm/minm AV Area Cont Eq vti 1.4 cm AV Area Cont Eq pk 1.3 cm MV Area PHT 2.7 cm Mitral E Point Velocity 130.0 cm/s Mitral A Point Velocity 88.4 cm/s Mitral E to A Ratio 1.5 FINDINGS LEFT VENTRICLE Normal left ventricular size. Moderate concentric left ventricular hypertrophy. RIGHT VENTRICLE Normal right ventricular size and systolic function. LEFT ATRIUM The left atrial size is [id number] dilated. RIGHT ATRIUM The right atrial size is mildly dilated. ATRIAL SEPTUM No atrial level shunt is demonstrated by color flow Doppler interrogation. AORTA The aortic root and proximal ascending aorta are normal in size on limited imaging. MITRAL VALVE Moderate mitral annular calcification. AORTIC VALVE Aortic valve sclerosis is present. Mild to moderate aortic valve stenosis. Mild aortic valve regurgitation. TRICUSPID VALVE There is trace tricuspid valve regurgitation. PULMONARY VALVE Trivial pulmonary valve regurgitation. VESSELS The inferior vena cava is normal in size. PERICARDIUM No pericardial effusion. A prominent epicardial fat pad is present. Chadwick Porter MD, FACC (Electronically Signed) Final Date:22 August 2017 17:41
--- NOTE | 2017-08-22 17:48 | PD.WCN.NOT ---
Wound Consult Description: Consult for Ostomy Management of urinary ostomy per Dr Sampson Communicated with: MARY ANN Brown Patient Recommendation: Urostomy pouch was attached to gravity finnegan bag. Empty as needed. Ensure the bag is not pulling on urostomy appliance. Change urostomy pouching system every 2-3 days and PRN for leaking. Use already cut one piece appliance available at bedside. Please place urostomy pouch slightly lower than the current one in use the next time it is changed. Flor selling underwriter for assistance if needed. Additional Information: Patient seen on [facility] for ostomy assessment and appliance change using one piece urostomy pouching system with drainage bag. Ostomy Type: Other (ileal conduit urinary diversion) Additional information Colostomy appliance was removed using adhesive removal wipes. Peristomal skin is noted to be macerated from 4-7 o'clock with slight purple blanching discoloration noted. Peristomal skin was cleansed and skin prepped prior to new Urostomy pouching system application. An extra urostomy pouch was left at the bedside, cut by selling underwriter to fit around stoma, for next appliance change. Template was left in ziplock bag for future appliance changes when using a cut to fit. Patient states that he uses susannah appliances at home. Coloplast one piece was obtained by selling underwriter and used for todays ostomy appliance change. Will follow up with patient tomorrow on 08/23/17 for urostomy/pouching assessment. Whitney Castro FOR[facility]PITALSanjana Aug 22, 2017 17:48
[2017-08-22] MEDS: MONTELUKAST SODIUM 10 MG TAB PO SCH (21:11)
[2017-08-22] MEDS: ATORVASTATIN 40 MG TAB PO SCH (21:11)
[2017-08-22] MEDS: DONEPEZIL HCL 5 MG TAB PO SCH (21:20)
[2017-08-23] VITALS (25 sets, daily range): BP systolic 95–142; BP diastolic 50–83; PULSE 80–104; RESP 20–36; TEMP 98.4–98.7; O2SAT 94–99
[2017-08-23] MEDS: CHLORHEXIDINE GLUCONATE 2 % 1 PACK (2 CLOTHS)(taper/protocol) TOPICAL SCH (02:51)
[2017-08-23] MEDS: CEFEPIME INJ 2,000 MG in SODIUM CHLORIDE 0.9% INJ 100 ML IV SCH ×2 (02:51→07:46)
[2017-08-23] MEDS: RESP: ALBUTEROL 2.5 MG/IPRATROPIUM 0.5 MG NEB (SCH) INH ×6 (03:06→23:38)
[2017-08-23] MEDS: SODIUM CHLOR 0.9% 1000 ML INJ 1,000 ML IV SCH (04:30)
[2017-08-23] MEDS: LEVOTHYROXINE SODIUM 50 MCG TAB PO SCH (04:30)
[2017-08-23] MEDS: RESP: BUDESONIDE 0.5 MG/2 ML NEB NEB SCH ×2 (07:38→20:49)
[2017-08-23] MEDS: MEMANTINE HCL 10 MG TAB PO SCH ×2 (07:46→20:21)
[2017-08-23] MEDS: VANCOMYCIN 1,500 MG/NS 500 ML IV SCH ×2 (07:46)
[2017-08-23] MEDS: DOCUSATE SODIUM 50 MG/SENNA 8.6 MG TAB PO SCH ×2 (07:46→20:22)
[2017-08-23] MEDS: PANTOPRAZOLE SOD 20 MG DELAYED RELEASE TAB PO SCH (07:46)
[2017-08-23] MEDS: SODIUM CHLORIDE 0.9% FLUSH 10 ML FLUSH IV FLUSH SCH ×2 (07:47→20:21)
[2017-08-23] MEDS: ASPIRIN EC 81 MG TABEC PO SCH (07:47)
[2017-08-23 09:03] LABS: AUTOMATED NEUTROPHIL # 8.3 TH/MM3 (1.8-7.7); BASOPHIL % 0.2 % (0.0-2.0); EOSINOPHIL # 0.1 TH/MM3 (0-0.4); HEMOGLOBIN 11.7 GM/DL (13.0-17.0); LYMPH % 9.5 % (9.0-44.0); MEAN CELL VOLUME 92.5 FL (80.0-100.0); MEAN CORPUSCULAR HGB CONC 33.5 % (32.0-36.0); MEAN PLATELET VOLUME 9.7 FL (7.0-11.0); MONO % 9.5 % (0.0-8.0); NEUT % 79.8 % (16.0-70.0); PLATELET COUNT 119 TH/MM3 (150-450); RED BLOOD COUNT 3.78 MIL/MM3 (4.50-5.90); RED CELL DISTRIBUTION WIDTH 15.1 % (11.6-17.2); WHITE BLOOD COUNT 10.4 TH/MM3 (4.0-11.0)
[2017-08-23 09:20] LABS: CALCIUM 7.7 MG/DL (8.5-10.1); CREATININE 0.7 MG/DL (0.60-1.30)
[2017-08-23 09:21] LABS: BICARBONATE 27.6 MEQ/L (21.0-32.0); MAGNESIUM 2.1 MG/DL (1.5-2.5)
[2017-08-23 09:23] LABS: PHOSPHORUS 2.3 MG/DL (2.5-4.9)
--- NOTE | 2017-08-23 11:53 | HHI.FPPN ---
Subjective Remarks No acute events overnight. Patient was transitioned to nasal cannula and tolerated it well. He is breathing much better today and was eating breakfast when the medical team arrived. His only complaint is left arm/hand swelling and pain. He states he's had pain and loss of function in that left hand following his stroke in May 2017. Otherwise no chest pain, shortness of breath, nausea or vomiting or abdominal pain. (Rubén Dubose MD R1) Objective Vitals Vital Signs Date Time Temp Pulse Resp B/P (MAP) Pulse Ox O2 Delivery O2 Flow Rate FiO2 08/23/17 11:01 86 08/23/17 10:01 88 08/23/17 10:00 89 08/23/17 08:11 83 28 127/54 (78) 97 08/23/17 08:00 86 08/23/17 08:00 98 28 97 08/23/17 07:40 97 Nasal Cannula 3.00 08/23/17 06:00 90 08/23/17 04:30 96 Nasal Cannula 4.00 08/23/17 04:10 96 35 08/23/17 04:00 96 08/23/17 04:00 98.4 96 20 129/74 (92) 97 08/23/17 02:00 92 08/23/17 00:52 95 35 08/23/17 00:00 98.6 104 36 142/83 (102) 99 08/23/17 00:00 104 08/22/17 23:45 96 35 08/22/17 22:00 98 08/22/17 20:00 96 08/22/17 20:00 98.4 92 22 117/59 (78) 96 08/22/17 19:29 96 Nasal Cannula 4.00 08/22/17 18:00 89 08/22/17 16:00 92 08/22/17 15:00 97 21 117/54 (75) 97 08/22/17 14:30 98 Venturi Mask 6.00 50 08/22/17 14:00 98 08/22/17 12:00 97 08/22/17 12:00 97 35 I/O 08/22/17 08/22/17 08/22/17 08/23/17 08/23/17 08/23/17 07:00 15:00 23:00 07:00 15:00 23:00 Intake Total 100 ml 100 ml 470 ml 240 ml Output Total 550 ml 1150 ml 750 ml Balance -450 ml 100 ml -680 ml -510 ml Intake Oral 120 ml 240 ml IV Total 100 ml 100 ml 350 ml Output Urine Total 550 ml 1150 ml 750 ml # Bowel Movements 0 0 (Rubén Dubose MD R1) Result Diagram: 08/23/1772308/23/17723 Objective Remarks GENERAL: This is a well-nourished, well-developed male patient. Obese and nasal cannula in place. Eating breakfast with no difficulties or respiratory distress. NEURO: Awake, alert, oriented to person, place, and year. Moves all extremities. SKIN: Cool and dry. No ecchymoses. Examined 08/21/2017: Small ~1 cm right buttock mild skin breakdown 2 inches from lower back. There is global sacral non -blanching erythema with no areas of breakdown. Right upper inner thigh noted to have area of irritation where catheter tubing sits. Scattered healing excoriated papules on the right outer thigh noted. Hyperpigmentation noted at bilateral lower extremities (distal half). No signs of skin infections. HEAD: Atraumatic. Normocephalic. No temporal or scalp tenderness. EYES: No scleral icterus. Mild physiologic drainage. ENT: Nose without bleeding or purulent drainage. Upper and lower dentures noted. NECK: Very large neck with redundant skin. No obvious JVD or lymphadenopathy. Nontender, no meningeal signs. CARDIOVASCULAR: Regular rate and rhythm without murmurs, gallops, or rubs. Heart sounds distant due to body habitus. RESPIRATORY: Distant breath sounds due to body habitus, but clear to auscultation. No wheezes. GASTROINTESTINAL: Abdomen obese. Non-tender. Ventral hernia noted on left lower abdomen. GENITOURO: Urostomy tube with site approximately mid-abdomen with colostomy bag in place. Skin is clean with no breakdown MUSCULOSKELETAL: Left hand/forearm moderated edematous with IV site proximal to hand not showing signs of infiltration. Mild tenderness to palpation of left wrist and forearm. Unchanged from previous exam. Extremities without clubbing, cyanosis, or edema. No joint tenderness, effusion, or edema noted. No calf tenderness. (Rubén Dubose MD R1) A/P Assessment and Plan Patient is a 77-year-old male admitted with severe sepsis, UTI, and pneumonia. He was initially admitted to inpatient [facility] but given altered mental status, worsening respiratory distress, and hypotension overnight was transferred to [facility] for possible pressor support. DNR revoked the morning of 08/22/2017, now FULL CODE. Patient's respiratory status is improving and was transitioned to nasal cannula on 08/23. Clinically improving. Critical Care consulted 08/21/2017, appreciate recommendations and management. Patient was seen and discussed with Drs. Ina Mascorro, Get Dubose, and Corin Morocho. Discharge Planning Anticipate at least another 2-3 day inpatient stay for IV antibiotics, respiratory support, culture assessment, fluid monitoring and support given SERGIO and UTI. (Rubén Dubose MD R1) Attending Attestation Pt. seen, examined and discussed with Drs. Dubose and Adrián. He reports feeling frustrated with the 6 years he has spent at his SNF. Would like to transfer to the [place] [facility]. He is hungry and eating his breakfast, ofr bipap and on nasal canula. No apparent respiratory distress, A&OX3. I agree with the findings and the plan as documented above. (Ina Mascorro MD) Problem List: (1) Severe sepsis ICD Codes: A41.9 - Sepsis, unspecified organism; R65.20 - Severe sepsis without septic shock Status: Acute Plan: Not currently meeting SIRS criteria on 08/23 \Met sepsis criteria on admission, shock criteria met at time of ICU transfer. On admission, patient meeting severe sepsis criteria based on fever, RR and HR elevations, lactic acid >2, WBC 16K on admission. UA evident of infection, and AP CXR suggestive of RLL infiltrate. Suspected sources of UTI and PNA to be treated and monitored as follows: * Sepsis protocol: IVF bolus x 2 in ED. Now on fluids at 75cc/hr. Monitor for fluid overload as adjust as needed. Lactic acid normal on repeat * Recheck CBC and BMP daily. WBC improving and normalized on 08/23. * Sputum culture pending. Urine Legionella and Pneumococcal Ag negative. Urine culture negative. Will monitor urine and blood cultures obtained 08/21/17, so far blood cultures positive for MRSA. Repeat blood cultures 08/22/2017 showing no growth in 24 hours * Rapid flu negative on admission. * Antibiotics: status-post IV Vancomycin 1g and Cefepime 2g x 1 in ED. Given indwelling catheter, urinary and respiratory sources of infection, and meeting severe sepsis criteria will continue IV Vancomycin (with pharmacy consult), Cefepime 2g IV qhr, and add Azithromycin 500mg IV daily (antibiotic start date , azithromycin discontinued on 08/22) * Hypotensive: goal MAP > 65. Not requiring pressors at this time. Critical Care consulted. Improving on 08/23 (2) PNA (pneumonia) ICD Codes: J18.9 - Pneumonia, unspecified organism Status: Acute Plan: PNA suspected given symptoms, CXR findings, and sepsis. Repeat CXR overnight on 08/21/2017 showing similar LLL infiltrate and cardiomegaly as initial study. Will give antibiotics as above for Severe Sepsis. Respiratory support as follows: * On admission required non-rebreather at 15L and was on BiPap. Transitioned to NC on 08/23 and is tolerating well. DNR CHANGED TO FULL CODE 08/22/2017 after conversation with patient, he states he would want intubation if indicated. ABG improved. * Goal is to treat respiratory and blood infections, wean to NC as tolerated, with goal O2 sat >92% with no respiratory distress * Duonebs increased to q4hr scheduled with albuterol nebs q2 hr PRN wheezing or SOB * Continue Pulmicort, Singular * Respiratory toilet PRN * Will obtain repeat CXR and/or chest CT if indicated by worsening respiratory status or worsening sepsis * Will need chest x-ray as outpatient after discharge to confirm resolution of pneumonia (3) UTI (urinary tract infection) ICD Codes: N39.0 - Urinary tract infection, site not specified Status: Acute Plan: History of MDRO UTI in 2013 and 2011. Has had chronic indwelling urostomy 7-8 years related to history of bladder cancer which increases risk of severe infection. Urine is dark brown at time of admission, reportedly cloudy prior to admission. UA showing eder color, large LE, 77 WBC, 7 RBCs but urine culture negative. Repeat UA on 08/22 showing trace leukocyte esterase, 14 WBC, 8 RBC and yellow color - improved from UA on admission * Management as above with aggressive IVF and antibiotics * Strict Is/Os q shift * Urine culture negative from 08/21/2017 (4) Bacteremia due to Gram-positive bacteria ICD Codes: R78.81 - Bacteremia Status: Acute Plan: Plan as above for Severe Sepsis (5) Left arm swelling ICD Codes: M79.89 - Other specified soft tissue disorders Plan: Patient noted to have left forearm/hand swelling and pain on 08/22. IV site does not appear to be infiltrated Unchanged on exam on 08/23 Patient does complain of pain and loss of function following his stroke in May 2017 Ordering ultrasound to rule out thrombosis Occupational therapy ordered (6) SERGIO (acute kidney injury) ICD Codes: N17.9 - Acute kidney failure, unspecified Status: Resolved Plan: SERGIO noted on admission resolved. Baseline from previous hospitalization 0.7-0.9. Likely related to sepsis. Initially thought to be related to UTI but urine culture negative. * IVF as above * Monitor BMP closely * Avoid nephrotoxic agents * Kidney US ordered and pending (7) Troponin level elevated ICD Codes: R74.8 - Abnormal levels of other serum enzymes Status: Acute Plan: Troponin level is 0.05 on admission. No chest pain. EKG showing sinus rhythm, rate ~100. No signs of ST changes, T wave changes, or heart block. Troponin elevation possibly related to sepsis, SERGIO. Takes daily aspirin, will continue. * BNP normal * 2D echo showing normal ejection fraction, moderate concentric LVH (8) Thrombocytopenia ICD Codes: D69.6 - Thrombocytopenia, unspecified Status: Acute Plan: 90 K on admission, improved to 119 on 08/23, will monitor platelet count and hold prophylactic anticoagulation at this time. Did receive one dose of Lovenox on 08/21/2017 after labs were drawn that day. (9) Altered mental status ICD Codes: R41.82 - Altered mental status Status: Resolved Plan: Altered mental status noted on admission documentation, however, no AMS noted on exam. Mental status fluctuates; did have worsening AMS overnight on 05/2018 but resolved, possibly this was related to hypoxia. Does have recent history of CVA and was at SNF for rehab at time of this admission. * Monitor via neuro checks q 4 hr * CT head obtained 08/21/2017 showing chronic age-related changes with no acute bleed. No signs of infection or ischemia. * Hold home Seroquel, Continue Namenda 10mg PO BID and Aricept 10 mg PO hs (10) Hypothyroidism ICD Codes: E03.9 - Hypothyroidism, unspecified Status: Chronic Plan: On Synthroid 50micrograms daily, continue. TSH 1.63 (11) Paroxysmal atrial fibrillation ICD Codes: I48.0 - Paroxysmal atrial fibrillation Status: Chronic Plan: Per detention records. Rate controlled at this time. Monitor on tele (12) Fluids/Electrolytes/Nutrition/Prophylaxis Status: Acute Plan: Fluids: NS @ 75ml/hr Electrolytes: monitor and replete as needed Nutrition: Heart healthy diet DVT Prophylaxis: Early ambulation. Hold Lovenox due to thrombocytopenia GI Prophylaxis: Protonix 20mg IV daily PRN anti-HTN: Hold home antihypertensive for now given hypotension, will monitor (Rubén Dubose MD R1) Problem Qualifiers (1) PNA (pneumonia): Qualified Codes: J18.1 - Lobar pneumonia, unspecified organism (2) UTI (urinary tract infection): Qualified Codes: N39.0 - Urinary tract infection, site not specified; R31.9 - Hematuria, unspecified (3) Hypothyroidism: Qualified Codes: E03.9 - Hypothyroidism, unspecified Rubén Dubose MD R1 Aug 23, 2017 11:53 Ina Mascorro MD Aug 23, 2017 13:47
--- NOTE | 2017-08-23 11:59 | HHI.IDPN ---
Subjective Subjective Remarks is a 77 y/o WM with past medical history of hypertension, ischemic stroke in May 2305/2017 for which he received TPA. His past medical history is also significant for paroxysmal atrial fibrillation, Obstructive sleep apnea, HTN, Obesity. His past medical history is also significant for prostate cancer, status post prostatectomy, bladder cancer status post cystectomy with ileal conduit. Patient is a resident of [facility] and has a [facility] DNR. With this background, patient presented to [facility] emergency department via [facility] from [facility] complaining of shortness of breath. Upon presentation, patient was febrile to 101.1 with white blood cell count of 16. Chest x-ray demonstrated left lower lobe consolidation. Influenza screen was negative. Patient received broad-spectrum antibiotics including vancomycin, cefepime, azithromycin. He had hypercapnic respiratory failure with pH of 7.29/ PaCO2 52/PA O2 of 237/bicarbonate 24. He was placed on BiPAP 16/8 35%. His most recent ABG demonstrates pH of 7.34/PaCO2 46/PA O2 of 86. Critical care medicine is consulted to assist with management of severe sepsis and respiratory failure requiring BiPAP. Blood cultures done on admission are positive for MRSA and ID consulted for Sepsis and MRSA bacteremia. Overnight events reviewed. No fever No rash No diarrhea Awake, off BiPAP, responds to Qs appropriately. Eating breakfast/ Antibiotics Vanco IV Cefepime IV Lines Line sites with no e.o infection Past Medical History Past Medical History Ischemic stroke with residual L hemiparesis. 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 Dementia Chronic bronchitis PTSD Major depressive disorder Morbid Obesity Hypothyroidism Past Surgical History Partial colectomy/proctectomy Prostatectomy Hernia repair Cystectomy with ileal conduit Allergies: Coded Allergies: penicillin G (Unverified Allergy, Severe, as a child, 01/24/17) Objective . Vital Signs Date Time Temp Pulse Resp B/P (MAP) Pulse Ox O2 Delivery O2 Flow Rate FiO2 08/23/17 11:01 86 08/23/17 10:01 88 08/23/17 10:00 89 08/23/17 08:11 83 28 127/54 (78) 97 08/23/17 08:00 86 08/23/17 08:00 98 28 97 08/23/17 07:40 97 Nasal Cannula 3.00 3/14/18 06:00 90 08/23/17 04:30 96 Nasal Cannula 4.00 08/23/17 04:10 96 35 08/23/17 04:00 96 08/23/17 04:00 98.4 96 20 129/74 (92) 97 08/23/17 02:00 92 08/23/17 00:52 95 35 08/23/17 00:00 98.6 104 36 142/83 (102) 99 08/23/17 00:00 104 08/22/17 23:45 96 35 08/22/17 22:00 98 08/22/17 20:00 96 08/22/17 20:00 98.4 92 22 117/59 (78) 96 08/22/17 19:29 96 Nasal Cannula 4.00 08/22/17 18:00 89 08/22/17 16:00 92 08/22/17 15:00 97 21 117/54 (75) 97 08/22/17 14:30 98 Venturi Mask 6.00 50 08/22/17 14:00 98 08/22/17 12:00 97 08/22/17 12:00 97 35 . Laboratory Tests Test 08/22/17 08:05 08/23/17 07:24 White Blood Count 12.6 TH/MM3 10.4 TH/MM3 Red Blood Count 3.88 MIL/MM3 3.78 MIL/MM3 Hemoglobin 12.2 GM/DL 11.7 GM/DL Hematocrit 36.3 % 35.0 % Mean Corpuscular Volume 93.6 FL 92.5 FL Mean Corpuscular Hemoglobin 31.5 PG 31.0 PG Mean Corpuscular Hemoglobin Concent 33.7 % 33.5 % Red Cell Distribution Width 15.2 % 15.1 % Platelet Count 90 TH/MM3 119 TH/MM3 Mean Platelet Volume 9.4 FL 9.7 FL Neutrophils (%) (Auto) 81.8 % 79.8 % Lymphocytes (%) (Auto) 7.5 % 9.5 % Monocytes (%) (Auto) 10.1 % 9.5 % Eosinophils (%) (Auto) 0.4 % 1.0 % Basophils (%) (Auto) 0.2 % 0.2 % Neutrophils # (Auto) 10.3 TH/MM3 8.3 TH/MM3 Lymphocytes # (Auto) 0.9 TH/MM3 1.0 TH/MM3 Monocytes # (Auto) 1.3 TH/MM3 1.0 TH/MM3 Eosinophils # (Auto) 0.0 TH/MM3 0.1 TH/MM3 Basophils # (Auto) 0.0 TH/MM3 0.0 TH/MM3 CBC Comment AUTO DIFF DIFF FINAL Differential Total Cells Counted 100 Neutrophils % (Manual) 79 % Band Neutrophils % 11 % Lymphocytes % 6 % Monocytes % 4 % Neutrophils # (Manual) 11.3 TH/MM3 Differential Comment FINAL DIFF MANUAL Platelet Estimate LOW Platelet Morphology Comment NORMAL Laboratory Tests Test 08/21/17 12:34 08/21/17 22:30 08/22/17 08:05 08/23/17 07:24 Lactic Acid Level 1.3 mmol/L 1.8 mmol/L B-Type Natriuretic Peptide 74 PG/ML Blood Urea Nitrogen 30 MG/DL 20 MG/DL Creatinine 0.83 MG/DL 0.70 MG/DL Random Glucose 88 MG/DL 93 MG/DL Total Protein 6.2 GM/DL Albumin 2.2 GM/DL Calcium Level 8.5 MG/DL 7.7 MG/DL Alkaline Phosphatase 71 U/L Aspartate Amino Transf (AST/SGOT) 38 U/L Alanine Aminotransferase (ALT/SGPT) 48 U/L Total Bilirubin 0.5 MG/DL Sodium Level 139 MEQ/L 138 MEQ/L Potassium Level 4.5 MEQ/L 4.2 MEQ/L Chloride Level 104 MEQ/L 102 MEQ/L Carbon Dioxide Level 25.5 MEQ/L 27.6 MEQ/L Anion Gap 10 MEQ/L 8 MEQ/L Estimat Glomerular Filtration Rate 90 ML/MIN 110 ML/MIN Thyroid Stimulating Hormone 3rd Gen 1.630 uIU/ML Phosphorus Level 2.3 MG/DL Magnesium Level 2.1 MG/DL Microbiology Date/Time Source Procedure Growth Status 08/22/17 11:25 Blood Peripheral Aerobic Blood Culture - Preliminary NO GROWTH IN 1 DAY Resulted 08/22/17 11:25 Blood Peripheral Anaerobic Blood Culture - Preliminary NO GROWTH IN 1 DAY Resulted 08/22/17 11:15 Blood Peripheral Aerobic Blood Culture - Preliminary NO GROWTH IN 1 DAY Resulted 08/22/17 11:15 Blood Peripheral Anaerobic Blood Culture - Preliminary NO GROWTH IN 1 DAY Resulted 08/21/17 07:11 Blood Peripheral Aerobic Blood Culture - Preliminary S. Aureus Mrsa Resulted 08/21/17 07:11 Anaerobic Blood Culture - Preliminary S. Aureus Mrsa Resulted 08/21/17 07:11 Blood Peripheral Aerobic Blood Culture - Preliminary S. Aureus Mrsa Resulted 08/21/17 07:11 Anaerobic Blood Culture - Preliminary S. Aureus Mrsa Resulted 08/21/17 08:20 Nasal Aspirate Influenza Types A,B Antigen (NARENDRA) - Final NEGATIVE FOR FLU A AND B ANTIGEN.... Complete 08/22/17 12:33 Urine Clean Catch Urine Culture Pending Received 08/21/17 08:20 Urine Catheterized Urine Legionella Antigen - Final PRESUMPTIVE NEGATIVE FOR LEGIONELLA P... Complete 08/21/17 08:20 Urine Catheterized Urine Streptococcus pneumoniae Antigen (M - Final PRESUMPTIVE NEGATIVE FOR STREPTOCOCCU... Complete 08/21/17 08:20 Urine Catheterized Urine Urine Culture - Final 50-100,000 CFU/ML MIXED GENIA... Complete Imaging Last Impressions Chest X-Ray 08/22/17 0600 Signed Impressions: Service Date/Time: Tuesday, August 22, 2017 03:48 - CONCLUSION: Unchanged left lower lobe infiltrate and tiny effusion. Cardiomegaly. Bryan Hernandez Jr., MD Upper Extremity Ultrasound 08/22/17 0000 Signed Impressions: Service Date/Time: Tuesday, August 22, 2017 09:18 - CONCLUSION: 1. No sonographic evidence for upper extremity DVT. Yazan Deleon MD Renal Ultrasound 08/22/17 0000 Signed Impressions: Service Date/Time: Tuesday, August 22, 2017 08:32 - CONCLUSION: 1. Nonobstructing renal calcifications. No hydronephrosis. Bladder removed. Wily Dunham MD Lower Extremity Ultrasound 08/22/17 0000 Signed Impressions: Service Date/Time: Tuesday, August 22, 2017 08:18 - CONCLUSION: Negative for DVT. Wily Dunham MD Head CT 08/21/17 0000 Signed Impressions: Service Date/Time: Monday, August 21, 2017 23:15 - CONCLUSION: 1. No acute intracranial abnormality. 2. Atrophy. 3. Encephalomalacia of the right parietal lobe suggesting prior infarction. rByan Hernandez Jr., MD Physical Exam GENERAL: Morbidly, well-developed patient, in no apparent distress. SKIN: No rashes, ecchymoses or lesions. Cool and dry. HEAD: Atraumatic. Normocephalic. No temporal or scalp tenderness. EYES: Pupils equal round and reactive. Extraocular motions intact. No scleral icterus. No injection or drainage. ENT: Nose without bleeding, purulent drainage or septal hematoma. Throat without erythema, tonsillar hypertrophy or exudate. Uvula midline. Airway patent. NECK: Large neck, Trachea midline. Supple, nontender, no meningeal signs. CARDIOVASCULAR: Regular rate and rhythm without murmurs, gallops, or rubs. RESPIRATORY: Clear to auscultation. Breath sounds equal bilaterally. No wheezes , rales, or rhonchi. GASTROINTESTINAL: Abdomen soft, non-tender, nondistended. Ostomy site ok. MUSCULOSKELETAL: Extremities without clubbing, cyanosis, or edema. No joint tenderness, effusion, or edema noted. No calf tenderness. Negative Homans sign bilaterally. NEUROLOGICAL: Awake and alert. Cranial nerves II through XII intact. Motor and sensory grossly within normal limits. Five out of 5 muscle strength in all muscle groups. Normal speech. Assessment & Plan Remarks Severe Sepsis MRSA bacteremia Pneumonia possible MRSA pneumonia. Acute hypoxic respiratory failure on BiPAP Acute renal failure on admission: sepsis, prerenal. Bladder and Prostate cancer s/p prostatectomy, cystectomy and ileal conduit. Morbid Obesity BMI 49 kg/m2 Recs: DC Cefepime IV Start Ceftriaxone IV Continue Vanco IV (target 15-20) Follow cultures CXR left side pneumonia ? MRSA pneumonia. Sputum cannot be obtained. follow CXR in am. Luz Arzola MD Aug 23, 2017 11:59
[2017-08-23] MEDS: cefTRIAXone INJ 2,000 MG in SODIUM CHLORIDE 0.9% INJ 100 ML IV SCH (13:20)
--- NOTE | 2017-08-23 13:30 | HHI.CCPN ---
Subjective Remarks/Hospital Course 77 WM with past medical history of hypertension, ischemic stroke 05/2017 for which he received TPA, paroxysmal atrial fibrillation, prostate cancer status post prostatectomy, bladder cancer status post cystectomy with ileal conduit, hypertension, obstructive sleep apnea, obesity who presented to [facility] emergency department via [facility] from [facility] complaining of shortness of breath. He was febrile to 101.1 with white blood cell count of 16. Chest x-ray demonstrated left lower lobe consolidation. Influenza screen was negative. He was admitted to family medicine service. He reported to them that he had a one week history of productive cough. He was administered broad- spectrum antibiotics including vancomycin, cefepime, azithromycin. He had hypercapnic respiratory failure with pH of 7.29/PaCO2 52/PA O2 of 237/ bicarbonate 24. He was placed on BiPAP 25/01 35%. His most recent ABG demonstrates pH of 7.34/PaCO2 46/PA O2 of 86. Critical care medicine is consulted to assist with management of severe sepsis and respiratory failure requiring BiPAP. He has a [facility] DNR. There is no contact information for family and patient is currently unable to provide it. 08/22 Patient is on BIPAP 05/19 with 35% FIO2. T:101.0 08/23: Been weaned off BiPAP breathing comfortably on nasal cannula. WBC count has normalized. No fever reported. Recent cultures have been negative to date Objective Vital Signs Date Time Temp Pulse Resp B/P (MAP) Pulse Ox O2 Delivery O2 Flow Rate FiO2 08/23/17 11:01 86 08/23/17 08:11 28 127/54 (78) 97 08/23/17 07:40 Nasal Cannula 3.00 08/23/17 04:10 35 08/23/17 04:00 98.4 Intake and Output 08/23/17 08/23/17 08/24/17 08:00 16:00 00:00 Intake Total 240 ml Output Total 750 ml Balance -510 ml Result Diagram: 08/23/17 0724 08/23/17 0724 Other Results Microbiology Date/Time Source Procedure Growth Status 08/21/17 08:20 Nasal Aspirate Influenza Types A,B Antigen (NARENDRA) - Final NEGATIVE FOR FLU A AND B ANTIGEN.... Complete 08/21/17 08:20 Urine Catheterized Urine Legionella Antigen - Final PRESUMPTIVE NEGATIVE FOR LEGIONELLA P... Complete 08/21/17 08:20 Urine Catheterized Urine Streptococcus pneumoniae Antigen (M - Final PRESUMPTIVE NEGATIVE FOR STREPTOCOCCU... Complete 08/21/17 08:20 Urine Catheterized Urine Urine Culture - Final 50-100,000 CFU/ML MIXED GENIA... Complete Imaging Last Impressions Chest X-Ray 08/22/17 0600 Signed Impressions: Service Date/Time: Tuesday, August 22, 2017 03:48 - CONCLUSION: Unchanged left lower lobe infiltrate and tiny effusion. Cardiomegaly. Bryan Hernandez Jr., MD Head CT 08/21/17 0000 Signed Impressions: Service Date/Time: Monday, August 21, 2017 23:15 - CONCLUSION: 1. No acute intracranial abnormality. 2. Atrophy. 3. Encephalomalacia of the right parietal lobe suggesting prior infarction. Bryan Hernandez Jr., MD Objective Remarks GENERAL: Morbidly obese male on NC. SKIN: Warm and dry, adequately perfused. HEAD: Atraumatic. Normocephalic. EYES: JACOBY, No scleral icterus. No injection or drainage. ENT: NC in place. NECK: Very thick redundant neck. Unable to appreciate JVD. CARDIOVASCULAR: Distant heart sounds with Regular rate and rhythm. No murmurs rubs or gallops appreciated. RESPIRATORY: Diminished breath sounds bilaterally. No wheezes Rales or rhonchi. GASTROINTESTINAL: Abdomen obese. Ileal urostomy in place with light eder urine output. Reducible ventral hernia to left of urostomy. MUSCULOSKELETAL: Extremities without clubbing, cyanosis. Venous stasis changes bilateral lower extremities. NEUROLOGICAL: Awake alert oriented. Following commands normal speech A/P Problem List: (1) Respiratory failure with hypoxia and hypercapnia ICD Code: J96.91 - Respiratory failure, unspecified with hypoxia; J96.92 - Respiratory failure, unspecified with hypercapnia (2) Severe sepsis ICD Code: A41.9 - Sepsis, unspecified organism; R65.20 - Severe sepsis without septic shock Status: Acute (3) Morbid obesity with BMI of 45.0-49.9, adult ICD Code: E66.01 - Morbid (severe) obesity due to excess calories; Z68.42 - Body mass index (BMI) 45.0-49.9, adult Status: Chronic (4) Thrombocytopenia ICD Code: D69.6 - Thrombocytopenia, unspecified Status: Acute (5) HCAP (healthcare-associated pneumonia) ICD Code: J18.9 - HCAP (healthcare-associated pneumonia) Status: Acute (6) HTN (hypertension) ICD Code: I10 - Essential (primary) hypertension Status: Chronic (7) HLD (hyperlipidemia) ICD Code: E78.5 - Hyperlipidemia, unspecified Status: Chronic (8) H/O prostate cancer ICD Code: Z85.46 - Personal history of malignant neoplasm of prostate Status: Resolved Assessment and Plan NEURO: Ischemic stroke with residual L hemiparesis. Dementia Insomnia PTSD Major depressive disorder Hard of hearing Namenda 10 mg by mouth twice a day Aricept 10 mg by mouth daily at bedtime Holding Seroquel 25 mg by mouth twice a day due to decreased mental status. Restart when appropriate CT brain- encephalomalacia right parietal lobe. Atrophy. No acute intracranial abnormality. RESP: Acute hypercapnic and hypoxemic respiratory failure-improving Obstructive sleep apnea Chronic bronchitis Allergic rhinitis Currently on nasal cannula. Use BiPAP as needed and at night Consult pulmonology for chronic respiratory failure Continue with oxygen keep sats >92% DuoNeb every 4 hours. Albuterol every 2 hours as needed. Budesonide 0.5 q12. Continue Singulair 10 g by mouth daily at bedtime Chest x-ray 08/22 -cardiomegaly. LLL infiltrate CV: Hypertension Hyperlipidemia Cardiomyopathy not otherwise [facility]) Paroxysmal [facility] fibrillation ([facility]) Monitor HR and BP keep MAP>65mmHg Continue atorvastatin 40 mg by mouth daily at bedtime Continue aspirin 81 mg by mouth daily for secondary prevention of stroke Received 3 L normal saline bolus in the emergency department. DC IVF Lactic acid cleared 1.8 2-D echo: Mild to moderate aortic valve stenosis. EF normal GI: GERD Morbid obesity Reducible ventral hernia Diet per speech Bowel regimen PPI- Protonix 20mg daily FEN/RENAL: Hyponatremia, history of intermittent hyponatremia Acute kidney injury- improving History of prostate cancer status post prostatectomy and cystectomy Monitor renal function, I/O's, electrolytes replacement per protocol Renal function improving with Cr: 0.8 from 1.74 DC IVF ID: Severe sepsis MRSA bacteremia Healthcare associated pneumonia ?UTI Influenza screen is negative. Urine Legionella and pneumococcal antigen negative. Continue abx(Rocephin, vancomycin ) Monitor for signs of infections . WBC is trending down. Blood culture 08/21 -Gram MRSA all 4 bottles, Urine culture - pending HEME: Acute thrombocytopenia (? consumptive secondary to sepsis) History of prostate cancer status post prostatectomy History of bladder cancer status post cystectomy and ileal conduit Chronic anemia Monitor CBC For ultrasound upper and lower ext. ENDO: Hypothyroidism On Synthroid 50 g by mouth daily TSH: 1.63 PROPH: Received Lovenox 40 mg subcutaneous on 08/21. Further doses have been held per family medicine due to thrombocytopenia. -resume as plt count is 119 today Protonix 20 mg daily for stress ulcer prophylaxis and history of GERD ACCESS: Peripheral IV providing adequate access at this time. Patient rescinded DNR and now is full code. Previously DNR Level 2 CCM will sign off. Ok to transfer from ICU. Re consult if needed Problem Qualifiers (1) Respiratory failure with hypoxia and hypercapnia: Qualified Codes: J96.01 - Acute respiratory failure with hypoxia; J96.02 - Acute respiratory failure with hypercapnia Xioa Mayfield MD Aug 23, 2017 13:30
--- NOTE | 2017-08-23 13:46 | RADRPT ---
EXAM DATE/TIME: 08/23/2017 12:43 [place] COMPARISON: No previous studies available for comparison. INDICATIONS : Fluid collection. MEDICAL HISTORY : CVA. Atrial fibrillation. Prostate cancer. SURGICAL HISTORY : Hernia repair. Partial colon removal. Urostomy. Prostatectomy. Bladder removed. ENCOUNTER: [facility] ACUITY: 2 days PAIN SCORE: 5/10 LOCATION: Left arm. AREA EVALUATED: Anterior and posterior hand and lower forearm. FINDINGS: MASSES: None. FLUID COLLECTIONS: None. OTHER: Diffuse soft tissue swelling. CONCLUSION: 1. Diffuse soft tissue swelling without sonographic evidence for focal drainable fluid collection at this time. Yazan Deleon MD on August 23, 2017 at 13:43 Board Certified Radiologist. This report was verified electronically.
--- NOTE | 2017-08-23 14:36 | PD.WCN.NOT ---
Wound Consult Description: Consult for Ostomy Management of urinary ostomy per Dr Sampson Communicated with: MARY ANN Moore Patient Recommendation: Urostomy pouch available in SPD. Empty as needed. Ensure the pouch at the bottom of the urostomy appliance is closed. Change urostomy pouching system using 2 1/4" every 2-3 days and PRN for leaking. Please place urostomy pouch slightly lower than the stoma, the peristomal skin is wrinkled and makes for difficult pouching. Fredy editorial writer for assistance if needed. Additional Information: Patient seen on [facility] for urostomy pouching system check. Ostomy Type: Other (ileal conduit urinary diversion) Additional information Patient seen on [facility] for assessment of urostomy pouch placed by editorial writer yesterday, 08/22/17. Pouching system was changed on shift supervisor rn, per the RN notes and noted to be intact without leaks. There is ~200 ml yellow clear urine noted in pouch that was not emptied by editorial writer. MARY ANN Moore was notified of yesterdays pouching system given the topography and denuded skin of the peristomal area from 5-7 o'clock. Supplies available in patient room for next ostomy appliance change. If assistance is needed, please fredy wound care/ ostomy nurse. Whitney Castro Aug 23, 2017 14:35
[2017-08-23] MEDS: ATORVASTATIN 40 MG TAB PO SCH (20:21)
[2017-08-23] MEDS: DONEPEZIL HCL 5 MG TAB PO SCH (20:21)
[2017-08-23] MEDS: MONTELUKAST SODIUM 10 MG TAB PO SCH (20:22)
[2017-08-24] VITALS (16 sets, daily range): BP systolic 110–120; BP diastolic 53–67; PULSE 77–92; RESP 14–33; TEMP 98.5–98.6; O2SAT 95–97
[2017-08-24] MEDS: VANCOMYCIN 1,500 MG/NS 500 ML IV SCH ×4 (03:08→20:00)
[2017-08-24] MEDS: CHLORHEXIDINE GLUCONATE 2 % 1 PACK (2 CLOTHS)(taper/protocol) TOPICAL SCH (03:08)
[2017-08-24] MEDS: RESP: ALBUTEROL 2.5 MG/IPRATROPIUM 0.5 MG NEB (SCH) INH ×5 (03:28→19:23)
[2017-08-24] MEDS: LEVOTHYROXINE SODIUM 50 MCG TAB PO SCH (05:51)
[2017-08-24 06:03] LABS: AUTOMATED NEUTROPHIL # 7.5 TH/MM3 (1.8-7.7); BASOPHIL # 0.1 TH/MM3 (0-0.2); BASOPHIL % 0.7 % (0.0-2.0); EOSINOPHIL # 0.2 TH/MM3 (0-0.4); EOSINOPHIL % 2.3 % (0.0-4.0); HEMATOCRIT 35.4 % (39.0-51.0); HEMOGLOBIN 11.9 GM/DL (13.0-17.0); LYMPH % 9.3 % (9.0-44.0); LYMPHOCYTE # 0.9 TH/MM3 (1.0-4.8); MEAN CELL VOLUME 91.8 FL (80.0-100.0); MEAN CORPUSCULAR HEMOGLOBIN 30.9 PG (27.0-34.0); MEAN CORPUSCULAR HGB CONC 33.7 % (32.0-36.0); MEAN PLATELET VOLUME 9.3 FL (7.0-11.0); MONOCYTE # 1.1 TH/MM3 (0-0.9); NEUT % 76.7 % (16.0-70.0); PLATELET COUNT 140 TH/MM3 (150-450); RED BLOOD COUNT 3.85 MIL/MM3 (4.50-5.90); RED CELL DISTRIBUTION WIDTH 15.1 % (11.6-17.2); WHITE BLOOD COUNT 9.8 TH/MM3 (4.0-11.0)
[2017-08-24 06:15] LABS: BICARBONATE 27.7 MEQ/L (21.0-32.0); CALCIUM 8.8 MG/DL (8.5-10.1); CREATININE 0.73 MG/DL (0.60-1.30); MAGNESIUM 1.8 MG/DL (1.5-2.5); PHOSPHORUS 2.4 MG/DL (2.5-4.9)
[2017-08-24] MEDS: RESP: BUDESONIDE 0.5 MG/2 ML NEB NEB SCH ×2 (07:19→19:23)
[2017-08-24] MEDS: ASPIRIN EC 81 MG TABEC PO SCH (08:18)
[2017-08-24] MEDS: MEMANTINE HCL 10 MG TAB PO SCH ×2 (08:18→23:01)
[2017-08-24] MEDS: PANTOPRAZOLE SOD 20 MG DELAYED RELEASE TAB PO SCH (08:18)
[2017-08-24] MEDS: DOCUSATE SODIUM 50 MG/SENNA 8.6 MG TAB PO SCH ×2 (08:18→23:02)
[2017-08-24] MEDS: SODIUM CHLORIDE 0.9% FLUSH 10 ML FLUSH IV FLUSH SCH ×2 (08:59→23:02)
[2017-08-24 09:22] LABS: BANDS 11 % (0-6); LYMPHOCYTES 12 % (9-44); MONOCYTES 12 % (0-8); MYELOCYTES 1 % (0-0); NEUTROPHIL # MANUAL DIFF 7.3 TH/MM3 (1.8-7.7); POLYS (SEG NEUTROPHILS) 62 % (16-70)
--- NOTE | 2017-08-24 10:31 | HHI.FPPN ---
Subjective Remarks No acute events overnight. Patient continues to be tolerating nasal cannula well with no respiratory distress. Denies chest pain, shortness of breath, nausea vomiting, abdominal pain. Patient continues to feel better overall and is using his left hand today with less pain. (Rubén Dubose MD R1) Objective Vitals Vital Signs Date Time Temp Pulse Resp B/P (MAP) Pulse Ox O2 Delivery O2 Flow Rate FiO2 08/24/17 08:00 88 24 113/67 (82) 96 08/24/17 07:19 95 Nasal Cannula 3.00 08/24/17 06:00 85 08/24/17 04:55 96 35 08/24/17 04:00 79 08/24/17 04:00 98.6 79 25 112/53 (72) 97 08/24/17 03:28 97 35 08/24/17 02:00 84 08/24/17 00:00 98.6 77 32 110/57 (74) 95 08/24/17 00:00 80 08/23/17 23:49 95 35 08/23/17 22:00 90 08/23/17 20:55 96 Nasal Cannula 3.00 08/23/17 20:00 80 08/23/17 20:00 98.7 80 23 112/57 (75) 94 08/23/17 18:00 89 08/23/17 16:05 95 08/23/17 16:05 95 102/50 (67) 98 08/23/17 16:00 87 08/23/17 16:00 87 98 08/23/17 14:01 95 08/23/17 14:00 93 08/23/17 13:01 90 08/23/17 13:01 90 24 96/53 (67) 96 08/23/17 12:21 89 22 95/58 (70) 95 08/23/17 12:21 89 08/23/17 12:00 93 22 95 08/23/17 12:00 93 08/23/17 11:01 86 I/O 08/23/17 08/23/17 08/23/17 08/24/17 08/24/17 08/24/17 07:00 15:00 23:00 07:00 15:00 23:00 Intake Total 240 ml 850 ml 515 ml Output Total 750 ml 1200 ml 1150 ml Balance -510 ml -350 ml -635 ml Intake Oral 240 ml 850 ml IV Total 515 ml Output Urine Total 750 ml 1200 ml 1150 ml # Bowel Movements 0 3 1 (Rubén Dubose MD R1) Result Diagram: 08/24/17 0501 08/24/17 0501 Objective Remarks GENERAL: This is a well-nourished, well-developed male patient. Obese and nasal cannula in place. In no respiratory distress and pleasantly conversant during the interview NEURO: Awake, alert, oriented to person, place, and year. Moves all extremities. SKIN: Cool and dry. No ecchymoses. Examined 08/21/2017: Small ~1 cm right buttock mild skin breakdown 2 inches from lower back. There is global sacral non -blanching erythema with no areas of breakdown. Right upper inner thigh noted to have area of irritation where catheter tubing sits. Scattered healing excoriated papules on the right outer thigh noted. Hyperpigmentation noted at bilateral lower extremities (distal half). No signs of skin infections. HEAD: Atraumatic. Normocephalic. No temporal or scalp tenderness. EYES: No scleral icterus. Mild physiologic drainage. ENT: Nose without bleeding or purulent drainage. Upper and lower dentures noted. NECK: Very large neck with redundant skin. No obvious JVD or lymphadenopathy. Nontender, no meningeal signs. CARDIOVASCULAR: Regular rate and rhythm without murmurs, gallops, or rubs. Heart sounds distant due to body habitus. RESPIRATORY: Distant breath sounds due to body habitus, but clear to auscultation. No wheezes. GASTROINTESTINAL: Abdomen obese. Non-tender. Ventral hernia noted on left lower abdomen. GENITOURO: Urostomy tube with site approximately mid-abdomen with colostomy bag in place. Skin is clean with no breakdown. Yellow urine appreciated in the ostomy with no haziness or blood. MUSCULOSKELETAL: Left hand/forearm moderated edematous with IV site proximal to hand not showing signs of infiltration. Mild tenderness to palpation of left wrist and forearm. Improved from prior exams and patient noted to be using/ moving the hand more readily today. Extremities without clubbing, cyanosis, or edema. No joint tenderness, effusion, or edema noted. No calf tenderness. (Rubén Dubose MD R1) A/P Assessment and Plan Patient is a 77-year-old male admitted with severe sepsis, UTI, and pneumonia. He was initially admitted to inpatient [facility] but given altered mental status, worsening respiratory distress, and hypotension overnight was transferred to [facility] for possible pressor support. DNR revoked the morning of 08/22/2017, now FULL CODE. Patient's respiratory status is improving and was transitioned to nasal cannula on 08/23. Continues to clinically improve and will be transferred to a medicine/surgery floor on 08/24. Critical Care consulted 08/21/2017, signed off on 08/23 Infectious disease consultation on 08/22, appreciate recommendations Patient was discussed with Dr. Ina Mascorro. Discharge Planning Anticipate at least another 2-3 day inpatient stay for IV antibiotics, respiratory support, culture assessment, fluid monitoring and support given SERGIO and UTI. (Rubén Dubose MD R1) Attending Attestation Pt seen while awaiting transfer out of intensive care. Hat Cutter has signed of. He feels quite well, only complaint is that he doesn't want to go back to the same SNF. His urostomy appliance is not leaking; clear yellow urine in bag. He is tolerating a regular diet. Anticipate transfer either back to his SNF or to another facility in the next day or two. I agree with the exam as documented above, and with the plan to transfer to a regular floor. Continue SCDs for now for DVT prophylaxis. (Ina Mascorro MD) Problem List: (1) PNA (pneumonia) ICD Codes: J18.9 - Pneumonia, unspecified organism Status: Acute Plan: PNA suspected given symptoms, CXR findings, and sepsis. Repeat CXR overnight on 08/21/2017 showing similar LLL infiltrate and cardiomegaly as initial study. Will give antibiotics as above for Severe Sepsis. Respiratory support as follows: * On admission required non-rebreather at 15L and was on BiPap. Transitioned to NC on 08/23 and is tolerating well. DNR CHANGED TO FULL CODE 08/22/2017 after conversation with patient, he states he would want intubation if indicated. ABG improved. * Goal is to treat respiratory and blood infections, wean to NC as tolerated, with goal O2 sat >92% with no respiratory distress * Duonebs increased to q4hr scheduled with albuterol nebs q2 hr PRN wheezing or SOB * Continue Pulmicort, Singular * Respiratory toilet PRN * Will obtain repeat CXR and/or chest CT if indicated by worsening respiratory status or worsening sepsis * Will need chest x-ray as outpatient after discharge to confirm resolution of pneumonia * Rapid flu negative on admission. * Sputum culture pending. Urine Legionella and Pneumococcal Ag negative. * Antibiotics: status-post IV Vancomycin 1g and Cefepime 2g x 1 in ED. Given indwelling catheter, urinary and respiratory sources of infection, will continue IV Vancomycin (with pharmacy consult), Rocephin 2 g IV daily (started on 08/23) (antibiotic start date 08/21/2017, azithromycin discontinued on 08/22, cefepime discontinued on 08/23) * Recheck CBC and BMP daily. WBC improving and normalized as of 08/23. (2) UTI (urinary tract infection) ICD Codes: N39.0 - Urinary tract infection, site not specified Status: Acute Plan: History of MDRO UTI in 2013 and 2011. Has had chronic indwelling urostomy 7-8 years related to history of bladder cancer which increases risk of severe infection. Urine was dark brown at time of admission, reportedly cloudy prior to admission. UA showing eder color, large LE, 77 WBC, 7 RBCs but urine culture negative. Repeat UA on 08/22 showing trace leukocyte esterase, 14 WBC, 8 RBC and yellow color - improved from UA on admission * Antibiotics as described above * Strict Is/Os q shift * Urine culture negative from 08/21/2017 (3) Bacteremia due to Gram-positive bacteria ICD Codes: R78.81 - Bacteremia Status: Acute Plan: Blood cultures obtained on 08/21 positive for MRSA. Repeat blood cultures 08/22/2017 showing no growth in 24 hours On admission, patient met severe sepsis criteria based on fever, RR and HR elevations, lactic acid >2, WBC 16K on admission. UA evident of infection, and AP CXR suggestive of RLL infiltrate. Suspected sources of UTI and PNA with management as described above (4) Left arm swelling ICD Codes: M79.89 - Other specified soft tissue disorders Plan: Patient noted to have left forearm/hand swelling and pain on 08/22. Patient does complain of pain and loss of function following his stroke in May 2017 IV site does not appear to be infiltrated Ultrasound 08/23 showed diffuse soft tissue swelling with no evidence of thrombus Occupational therapy consultation Patient reporting improvement in pain and is noted to be using his left hand more readily on 08/24 (5) Troponin level elevated ICD Codes: R74.8 - Abnormal levels of other serum enzymes Status: Acute Plan: Troponin level is 0.05 on admission. No chest pain. EKG showing sinus rhythm, rate ~100. No signs of ST changes, T wave changes, or heart block. Troponin elevation possibly related to sepsis, SERGIO. Takes daily aspirin, will continue. * BNP normal * 2D echo showing normal ejection fraction, moderate concentric LVH (6) Thrombocytopenia ICD Codes: D69.6 - Thrombocytopenia, unspecified Status: Acute Plan: 90 K on admission, improved to 140 on 08/24, will monitor platelet count and hold prophylactic anticoagulation at this time. Did receive one dose of Lovenox on 08/21/2017 after labs were drawn that day. (7) Altered mental status ICD Codes: R41.82 - Altered mental status Status: Resolved Plan: Altered mental status noted on admission documentation, however, no AMS noted on exam. Mental status fluctuates; did have worsening AMS overnight on 05/2018 but resolved, possibly this was related to hypoxia. Does have recent history of CVA and was at SNF for rehab at time of this admission. * Monitor via neuro checks q 4 hr * CT head obtained 08/21/2017 showing chronic age-related changes with no acute bleed. No signs of infection or ischemia. * Hold home Seroquel, Continue Namenda 10mg PO BID and Aricept 10 mg PO hs (8) Hypothyroidism ICD Codes: E03.9 - Hypothyroidism, unspecified Status: Chronic Plan: On Synthroid 50micrograms daily, continue. TSH 1.63 (9) Paroxysmal atrial fibrillation ICD Codes: I48.0 - Paroxysmal atrial fibrillation Status: Chronic Plan: Per detention records. Rate controlled at this time. He was monitored on telemetry during ICU stay. Will resume the patient complains of any concerning symptoms (10) Fluids/Electrolytes/Nutrition/Prophylaxis Status: Acute Plan: Fluids: No IV fluids at this time Electrolytes: monitor and replete as needed Nutrition: Heart healthy diet DVT Prophylaxis: Early ambulation. Hold Lovenox due to thrombocytopenia GI Prophylaxis: Protonix 20mg IV daily PRN anti-HTN: Hold home antihypertensive for now given hypotension, will monitor (Rubén Dubose MD R1) Problem Qualifiers (1) PNA (pneumonia): Qualified Codes: J18.1 - Lobar pneumonia, unspecified organism (2) UTI (urinary tract infection): Qualified Codes: N39.0 - Urinary tract infection, site not specified; R31.9 - Hematuria, unspecified (3) Hypothyroidism: Qualified Codes: E03.9 - Hypothyroidism, unspecified Rubén Dubose MD R1 Aug 24, 2017 10:31 Ina Mascorro MD Aug 24, 2017 11:34
--- NOTE | 2017-08-24 11:02 | HHI.IDPN ---
Subjective Subjective Remarks is a 77 y/o WM with past medical history of hypertension, ischemic stroke in May 2305/2017 for which he received TPA. His past medical history is also significant for paroxysmal atrial fibrillation, Obstructive sleep apnea, HTN, Obesity. His past medical history is also significant for prostate cancer, status post prostatectomy, bladder cancer status post cystectomy with ileal conduit. Patient is a resident of [facility] and has a [facility] DNR. With this background, patient presented to [facility] emergency department via [facility] from [facility] complaining of shortness of breath. Upon presentation, patient was febrile to 101.1 with white blood cell count of 16. Chest x-ray demonstrated left lower lobe consolidation. Influenza screen was negative. Patient received broad-spectrum antibiotics including vancomycin, cefepime, azithromycin. He had hypercapnic respiratory failure with pH of 7.29/ PaCO2 52/PA O2 of 237/bicarbonate 24. He was placed on BiPAP 16/8 35%. His most recent ABG demonstrates pH of 7.34/PaCO2 46/PA O2 of 86. Critical care medicine is consulted to assist with management of severe sepsis and respiratory failure requiring BiPAP. Blood cultures done on admission are positive for MRSA and ID consulted for Sepsis and MRSA bacteremia. Overnight events reviewed. No fever No rash No diarrhea Awake, off BiPAP, responds to Qs appropriately. Eating breakfast/ Antibiotics Vanco IV Ceftriaxone IV Lines Line sites with no e.o infection Past Medical History Past Medical History Ischemic stroke with residual L hemiparesis. 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 Dementia Chronic bronchitis PTSD Major depressive disorder Morbid Obesity Hypothyroidism Past Surgical History Partial colectomy/proctectomy Prostatectomy Hernia repair Cystectomy with ileal conduit Allergies: Coded Allergies: penicillin G (Unverified Allergy, Severe, as a child, 01/24/17) Objective . Vital Signs Date Time Temp Pulse Resp B/P (MAP) Pulse Ox O2 Delivery O2 Flow Rate FiO2 08/24/17 08:00 88 24 113/67 (82) 96 08/24/17 07:19 95 Nasal Cannula 3.00 08/24/17 06:00 85 08/24/17 04:55 96 35 08/24/17 04:00 79 08/24/17 04:00 98.6 79 25 112/53 (72) 97 08/24/17 03:28 97 35 08/24/17 02:00 84 08/24/17 00:00 98.6 77 32 110/57 (74) 95 08/24/17 00:00 80 08/23/17 23:49 95 35 08/23/17 22:00 90 08/23/17 20:55 96 Nasal Cannula 3.00 08/23/17 20:00 80 08/23/17 20:00 98.7 80 23 112/57 (75) 94 08/23/17 18:00 89 08/23/17 16:05 95 08/23/17 16:05 95 102/50 (67) 98 08/23/17 16:00 87 08/23/17 16:00 87 98 08/23/17 14:01 95 08/23/17 14:00 93 08/23/17 13:01 90 08/23/17 13:01 90 24 96/53 (67) 96 08/23/17 12:21 89 22 95/58 (70) 95 08/23/17 12:21 89 08/23/17 12:00 93 22 95 08/23/17 12:00 93 08/23/17 11:01 86 . Laboratory Tests Test 08/23/17 07:24 08/24/17 05:01 White Blood Count 10.4 TH/MM3 9.8 TH/MM3 Red Blood Count 3.78 MIL/MM3 3.85 MIL/MM3 Hemoglobin 11.7 GM/DL 11.9 GM/DL Hematocrit 35.0 % 35.4 % Mean Corpuscular Volume 92.5 FL 91.8 FL Mean Corpuscular Hemoglobin 31.0 PG 30.9 PG Mean Corpuscular Hemoglobin Concent 33.5 % 33.7 % Red Cell Distribution Width 15.1 % 15.1 % Platelet Count 119 TH/MM3 140 TH/MM3 Mean Platelet Volume 9.7 FL 9.3 FL Neutrophils (%) (Auto) 79.8 % 76.7 % Lymphocytes (%) (Auto) 9.5 % 9.3 % Monocytes (%) (Auto) 9.5 % 11.0 % Eosinophils (%) (Auto) 1.0 % 2.3 % Basophils (%) (Auto) 0.2 % 0.7 % Neutrophils # (Auto) 8.3 TH/MM3 7.5 TH/MM3 Lymphocytes # (Auto) 1.0 TH/MM3 0.9 TH/MM3 Monocytes # (Auto) 1.0 TH/MM3 1.1 TH/MM3 Eosinophils # (Auto) 0.1 TH/MM3 0.2 TH/MM3 Basophils # (Auto) 0.0 TH/MM3 0.1 TH/MM3 CBC Comment DIFF FINAL AUTO DIFF Differential Comment FINAL DIFF MANUAL Differential Total Cells Counted 100 Neutrophils % (Manual) 62 % Band Neutrophils % 11 % Lymphocytes % 12 % Monocytes % 12 % Eosinophils % 2 % Neutrophils # (Manual) 7.3 TH/MM3 Myelocytes 1 % Platelet Estimate LOW Platelet Morphology Comment NORMAL Laboratory Tests Test 08/23/17 07:24 08/24/17 05:01 Blood Urea Nitrogen 20 MG/DL 14 MG/DL Creatinine 0.70 MG/DL 0.73 MG/DL Random Glucose 93 MG/DL 132 MG/DL Calcium Level 7.7 MG/DL 8.8 MG/DL Phosphorus Level 2.3 MG/DL 2.4 MG/DL Magnesium Level 2.1 MG/DL 1.8 MG/DL Sodium Level 138 MEQ/L 139 MEQ/L Potassium Level 4.2 MEQ/L 3.7 MEQ/L Chloride Level 102 MEQ/L 105 MEQ/L Carbon Dioxide Level 27.6 MEQ/L 27.7 MEQ/L Anion Gap 8 MEQ/L 6 MEQ/L Estimat Glomerular Filtration Rate 110 ML/MIN 104 ML/MIN Microbiology Date/Time Source Procedure Growth Status 08/22/17 11:25 Blood Peripheral Aerobic Blood Culture - Preliminary NO GROWTH IN 1 DAY Resulted 08/22/17 11:25 Blood Peripheral Anaerobic Blood Culture - Preliminary NO GROWTH IN 1 DAY Resulted 08/22/17 11:15 Blood Peripheral Aerobic Blood Culture - Preliminary NO GROWTH IN 1 DAY Resulted 08/22/17 11:15 Blood Peripheral Anaerobic Blood Culture - Preliminary NO GROWTH IN 1 DAY Resulted 08/22/17 12:33 Urine Clean Catch Urine Culture - Final NO GROWTH IN 48 HOURS. Complete Imaging Last Impressions Chest X-Ray 08/22/17 0600 Signed Impressions: Service Date/Time: Tuesday, August 22, 2017 03:48 - CONCLUSION: Unchanged left lower lobe infiltrate and tiny effusion. Cardiomegaly. Bryan Hernandez Jr., MD Upper Extremity Ultrasound 08/22/17 0000 Signed Impressions: Service Date/Time: Tuesday, August 22, 2017 09:18 - CONCLUSION: 1. No sonographic evidence for upper extremity DVT. Yazan Deleon MD Renal Ultrasound 08/22/17 0000 Signed Impressions: Service Date/Time: Tuesday, August 22, 2017 08:32 - CONCLUSION: 1. Nonobstructing renal calcifications. No hydronephrosis. Bladder removed. Wily Dunham MD Lower Extremity Ultrasound 08/22/17 0000 Signed Impressions: Service Date/Time: Tuesday, August 22, 2017 08:18 - CONCLUSION: Negative for DVT. Wily Dunham MD Head CT 08/21/17 0000 Signed Impressions: Service Date/Time: Monday, August 21, 2017 23:15 - CONCLUSION: 1. No acute intracranial abnormality. 2. Atrophy. 3. Encephalomalacia of the right parietal lobe suggesting prior infarction. Bryan Hernandez Jr., MD Physical Exam GENERAL: Morbidly, well-developed patient, in no apparent distress. SKIN: No rashes, ecchymoses or lesions. Cool and dry. HEAD: Atraumatic. Normocephalic. No temporal or scalp tenderness. EYES: Pupils equal round and reactive. Extraocular motions intact. No scleral icterus. No injection or drainage. ENT: Nose without bleeding, purulent drainage or septal hematoma. Throat without erythema, tonsillar hypertrophy or exudate. Uvula midline. Airway patent. NECK: Large neck, Trachea midline. Supple, nontender, no meningeal signs. CARDIOVASCULAR: Regular rate and rhythm without murmurs, gallops, or rubs. RESPIRATORY: Clear to auscultation. Breath sounds equal bilaterally. No wheezes , rales, or rhonchi. GASTROINTESTINAL: Abdomen soft, non-tender, nondistended. Ostomy site ok. MUSCULOSKELETAL: Extremities without clubbing, cyanosis, or edema. No joint tenderness, effusion, or edema noted. No calf tenderness. Negative Homans sign bilaterally. NEUROLOGICAL: Awake and alert. Cranial nerves II through XII intact. Motor and sensory grossly within normal limits. Five out of 5 muscle strength in all muscle groups. Normal speech. Psych cooperative IV line sites with no e.o infection. Assessment & Plan Remarks Severe Sepsis MRSA bacteremia Pneumonia possible MRSA pneumonia. Acute hypoxic respiratory failure on BiPAP Acute renal failure on admission: sepsis, prerenal. Bladder and Prostate cancer s/p prostatectomy, cystectomy and ileal conduit. Morbid Obesity BMI 49 kg/m2 Recs: Continue Ceftriaxone IV Continue Vanco IV (target 15-20) Follow cultures CXR left side pneumonia ? MRSA pneumonia. Sputum cannot be obtained. follow CXR Follow clinically. Potential discharge on oral zyvox with levaquin depending on clinical response. Other ID MD to follow clinically and provide recs in am if blood cultures remain negative at 72 hours. I will be OOT from 08/25/2017 to 09/03/2017 other ID MDs covering for me. Luz Arzola MD Aug 24, 2017 11:01
[2017-08-24] MEDS: ENOXAPARIN SODIUM 40 MG/0.4 ML SYRINGE SQ SCH (11:29)
[2017-08-24] MEDS: cefTRIAXone INJ 2,000 MG in SODIUM CHLORIDE 0.9% INJ 100 ML IV SCH (11:29)
--- NOTE | 2017-08-24 15:24 | PD.WCN.NOT ---
Wound Consult Description: Consult for Ostomy Management of urinary ostomy per Dr Sampson Communicated with: MARY ANN Moore Patient Recommendation: Urostomy pouch available in [facility] when needed. Empty pouch of urine as needed. Ensure the pouch at the bottom of the urostomy appliance is closed. Change urostomy pouching system using 2 1/4" every 2-3 days and PRN for leaking. Cleanse peristomal skin with water only, pat dry, and prep with Cavilon spray available at bedside and allow to dry. Please place urostomy pouch slightly lower than the stoma, the peristomal skin is wrinkled @ 6o'clock Vocera commercial underwriter for assistance if needed. Additional Information: Patient seen on [facility] for assessment of urostomy appliance with pouching system change with education. Ostomy Type: Other (ileal conduit urinary diversion) Educated patient on: When to empty pouch How to empty pouch When to change wafer How to change wafer Peristomal skin care Additional information Patient seen on [facility] for ostomy assessment and appliance change with Stacy REESE, [facility]. Appliance was lifting at the top of the wafer and had been reinforced with tape. Wafer was not protecting the peristomal skin and was removed using adhesive remover wipes. ~100ml of clear yellow urine was discarded with MARY ANN Moore notified for I&O's. Peristomal skin was cleansed with water and dried and then skin prepped by Stacy REESE, [facility]. There is macerated peristomal skin noted circumferentially. With next appliance change, stoma powder and skin prep will be used to encrust any open areas noted prior to using any stoma paste to assist in pouching adherence. A new one piece colosplast urostomy pouching system was applied and a gloved hand placed over the wafer to warm. Whitney Castro [facility] Aug 24, 2017 15:24
[2017-08-24] MEDS ORDERED: PHARMACY ORDERED LAB ONE (19:45)
[2017-08-24] MEDS: DONEPEZIL HCL 5 MG TAB PO SCH (23:01)
[2017-08-24] MEDS: ATORVASTATIN 40 MG TAB PO SCH (23:02)
[2017-08-24] MEDS: MONTELUKAST SODIUM 10 MG TAB PO SCH (23:02)
[2017-08-25] VITALS (10 sets, daily range): BP systolic 53–129; BP diastolic 57–87; PULSE 80–94; RESP 16–41; TEMP 98.3–99.5; O2SAT 94–97
--- NOTE | 2017-08-25 00:58 | MB ---
cc: Jessie Bowman MD DATE OF CONSULT: 08/24/2017 REASON FOR CONSULTATION: Respiratory failure. HISTORY OF PRESENT ILLNESS: This is a 77-year-old white male who has had a history of chronic urostomy catheter placement, was at the nursing facility and was brought in for altered mental status and respiratory insufficiency. The patient was suspected to be septic and was started on IV antibiotic therapy and complained of having some urinary frequency and dark urine and also has had a cough with significant sputum production but had no significant fevers or chills or night sweats. PAST MEDICAL HISTORY: The patient's past history has included a history of obstructive sleep apnea and a history of chronic UTI and history of pneumonia in the past. ALLERGIES: PENICILLIN. HABITS: The patient does not smoke and no significant history for alcohol use. FAMILY HISTORY: Noncontributory. REVIEW OF SYSTEMS: The patient has had some weight gain. He has leg swelling. Denies any blackout spells, but recently had altered mental status. He also has some hoarseness, wheezing, cough with expectoration and epigastric distress but no diarrhea or constipation. He has had no leg or calf muscle pains or joint pains of his extremities and denies any skin lesions. PHYSICAL EXAMINATION: GENERAL: This is an elderly white male in no acute distress. VITAL SIGNS: Blood pressure 130/70, pulse 94, respirations 22, temperature 98.2. HEENT: Head is normocephalic. Pupils reactive and equal. Tongue moist. Nasal mucosa edematous. Throat is injected. Ears no inflammation. NECK: Supple. No bruits, thyroid enlargement or lymphadenopathy. CHEST: Distant breath sounds with expiratory wheezes throughout both lung lopez, prolonged expiration. HEART: The heart sounds are irregular S1 and S2. No S3 gallop or murmur. ABDOMEN: Soft, obese without masses. No organomegaly, tenderness and bowel sounds are active. EXTREMITIES: Reveal edema 1+, decreased peripheral pulses and there were no gross motor deficits. NEUROLOGIC: Cranial nerves not tested. RECTAL: Deferred. SKIN: No lesions. IMPRESSION: 1. Chronic respiratory failure. 2. Exogenous obesity. 3. Possible upper airway stridor. 4. Obstructive sleep apnea syndrome. 5. Urinary tract infection, resolved. PLAN: The patient has been advised that he will be placed on nasal cannula at 2-3 liters. Nebulized DuoNeb solution has been added q.i.d. and p.r.n. He will be fitted with a BiPAP mask if he qualifies for home CPAP and the patient will also try to lose weight and continue his diuretic therapy and I will follow the case with you Dr. Wilkins. Thank you for this consultation. V. Herberth Bowman MD VJD/rt , 12:21 AM , 12:58 AM
[2017-08-25] MEDS: RESP: ALBUTEROL 2.5 MG/3 ML NEB (PRN) INH ×2 (01:39→20:11)
[2017-08-25] MEDS: RESP: ALBUTEROL 2.5 MG/IPRATROPIUM 0.5 MG NEB (SCH) INH ×3 (03:52→14:53)
[2017-08-25] MEDS: CHLORHEXIDINE GLUCONATE 2 % 1 PACK (2 CLOTHS)(taper/protocol) TOPICAL SCH (04:00)
[2017-08-25] MEDS: LEVOTHYROXINE SODIUM 50 MCG TAB PO SCH (04:54)
[2017-08-25 06:25] LABS: AUTOMATED NEUTROPHIL # 8.2 TH/MM3 (1.8-7.7); BASOPHIL # 0.1 TH/MM3 (0-0.2); BASOPHIL % 0.5 % (0.0-2.0); EOSINOPHIL # 0.2 TH/MM3 (0-0.4); HEMATOCRIT 33.8 % (39.0-51.0); HEMOGLOBIN 11.3 GM/DL (13.0-17.0); LYMPH % 10.6 % (9.0-44.0); LYMPHOCYTE # 1.1 TH/MM3 (1.0-4.8); MEAN CELL VOLUME 92.4 FL (80.0-100.0); MEAN CORPUSCULAR HEMOGLOBIN 30.9 PG (27.0-34.0); MEAN CORPUSCULAR HGB CONC 33.5 % (32.0-36.0); MEAN PLATELET VOLUME 8.8 FL (7.0-11.0); MONO % 10.6 % (0.0-8.0); MONOCYTE # 1.1 TH/MM3 (0-0.9); NEUT % 76.3 % (16.0-70.0); PLATELET COUNT 173 TH/MM3 (150-450); RED BLOOD COUNT 3.66 MIL/MM3 (4.50-5.90); RED CELL DISTRIBUTION WIDTH 14.9 % (11.6-17.2); WHITE BLOOD COUNT 10.7 TH/MM3 (4.0-11.0)
[2017-08-25 06:50] LABS: BICARBONATE 28.7 MEQ/L (21.0-32.0); CALCIUM 8.3 MG/DL (8.5-10.1); CREATININE 0.65 MG/DL (0.60-1.30)
[2017-08-25] MEDS: ASPIRIN EC 81 MG TABEC PO SCH (08:11)
[2017-08-25] MEDS: MEMANTINE HCL 10 MG TAB PO SCH ×2 (08:11→20:52)
[2017-08-25] MEDS: DOCUSATE SODIUM 50 MG/SENNA 8.6 MG TAB PO SCH ×2 (08:11→20:51)
[2017-08-25] MEDS: PANTOPRAZOLE SOD 20 MG DELAYED RELEASE TAB PO SCH (08:11)
[2017-08-25] MEDS: SODIUM CHLORIDE 0.9% FLUSH 10 ML FLUSH IV FLUSH SCH ×2 (08:12→20:52)
[2017-08-25] MEDS: RESP: BUDESONIDE 0.5 MG/2 ML NEB NEB SCH ×2 (09:18→20:11)
--- NOTE | 2017-08-25 10:28 | HHI.IDPN ---
Subjective Subjective Remarks ID COVERAGE is a 77 y/o WM with past medical history of hypertension, ischemic stroke in May 2305/2017 for which he received TPA. His past medical history is also significant for paroxysmal atrial fibrillation, Obstructive sleep apnea, HTN, Obesity. His past medical history is also significant for prostate cancer, status post prostatectomy, bladder cancer status post cystectomy with ileal conduit. Patient is a resident of [facility] and has a [facility] DNR. With this background, patient presented to [facility] emergency department via [facility] from [facility] complaining of shortness of breath. Upon presentation, patient was febrile to 101.1 with white blood cell count of 16. Chest x-ray demonstrated left lower lobe consolidation. Influenza screen was negative. Patient received broad-spectrum antibiotics including vancomycin, cefepime, azithromycin. He had hypercapnic respiratory failure with pH of 7.29/ PaCO2 52/PA O2 of 237/bicarbonate 24. He was placed on BiPAP 16/8 35%. His most recent ABG demonstrates pH of 7.34/PaCO2 46/PA O2 of 86. Critical care medicine is consulted to assist with management of severe sepsis and respiratory failure requiring BiPAP. Blood cultures done on admission are positive for MRSA and ID consulted for Sepsis and MRSA bacteremia. Notes reviewed States breathing is the same Coughing up some phlegm today No fever No rash No diarrhea Darío CP States he used BIPAP overnight Has one new (+) BC from 08/22 Last CXR with stable L infiltrate Antibiotics Vanco IV Ceftriaxone IV Current Medications Medications (Trade) Dose Ordered Sig/Rodolfo Route Start Time Stop Time Status Last Admin (NS Flush) 2 ml UNSCH PRN IV FLUSH 08/21/17 10:00 (NS Flush) 2 ml BID IV FLUSH 08/21/17 21:00 08/25/17 08:12 (Lovenox Inj) 40 mg Q24H SQ 08/21/17 12:00 Future hold 08/24/17 11:29 Pharmacy Profile Note 0 ml @ 0 mls/hr UNSCH OTHER 08/21/17 10:30 (Albuterol Neb) 2.5 mg Q2HR NEB PRN INH 08/21/17 12:00 08/25/17 01:39 (Ecotrin Ec) 81 mg DAILY PO 08/21/17 12:00 3/16/18 08:11 (Lipitor) 40 mg HS PO 08/21/17 21:00 08/24/17 23:02 (Pulmicort Respule Neb) 0.5 mg Q12HR NEB NEB 08/21/17 12:00 08/25/17 09:18 (Synthroid) 50 mcg DAILY@0600 PO 08/22/17 06:00 08/25/17 04:54 (Prinivil) 10 mg DAILY PO 08/22/17 09:00 Future Hold (Ativan) 0.5 mg Q8H PRN PO 08/21/17 11:00 Future Hold (Singulair) 10 mg HS PO 08/21/17 21:00 08/24/17 23:02 (SEROquel) 25 mg BID PO 08/21/17 21:00 Future Hold 08/21/17 21:51 (Protonix) 20 mg DAILY PO 08/22/17 09:00 08/25/17 08:11 (Jeimy-Colace) 1 tab BID PO 08/21/17 21:00 08/25/17 08:11 (Senokot) 17.2 mg Q12H PRN PO 08/21/17 12:00 08/23/17 08:48 (Dulcolax Supp) 10 mg DAILY PRN RECTAL 08/21/17 11:00 (Lactulose Liq) 30 ml DAILY PRN PO 08/21/17 11:00 08/23/17 08:48 (Tylenol) 650 mg Q4H PRN PO 08/21/17 23:00 (Zofran Inj) 4 mg Q6H PRN IVP 08/21/17 11:00 (Narcan Inj) 0.4 mg UNSCH PRN IV PUSH 08/21/17 11:00 (Namenda) 10 mg BID PO 08/21/17 21:00 08/25/17 08:11 (Aricept) 10 mg HS PO 08/21/17 21:00 08/24/17 23:01 Miscellaneous Information Patient in critical care unit? Ass... Q361D .XX 08/22/17 03:15 (Chlorhexidine 2% Cloth) 3 pack DAILY@04 TOPICAL 08/22/17 04:00 08/26/17 04:01 08/25/17 04:00 (Chlorhexidine 2% Cloth) 3 pack UNSCH PRN TOPICAL 3/13/18 03:15 08/27/17 03:09 Ceftriaxone Sodium 2000 mg/ Sodium Chloride 100 ml @ 200 mls/hr Q24H IV 08/23/17 13:00 08/24/17 11:29 (Duoneb Neb) 1 ampule Q6HR NEB INH 08/24/17 16:00 08/25/17 03:52 Miscellaneous Information SPECIFIC LAB TO BE STEPHAN... ONCE ONCE .XX 08/27/17 17:45 08/27/17 17:46 Vancomycin HCl 2000 mg/Sodium Chloride 520 ml @ 257.5 mls/ hr Q18H IV 08/25/17 12:00 Lines Line sites with no e.o infection Past Medical History Past Medical History Ischemic stroke with residual L hemiparesis. 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 Dementia Chronic bronchitis PTSD Major depressive disorder Morbid Obesity Hypothyroidism Past Surgical History Partial colectomy/proctectomy Prostatectomy Hernia repair Cystectomy with ileal conduit Allergies: Coded Allergies: penicillin G (Unverified Allergy, Severe, as a child, 01/24/17) Objective . Vital Signs Date Time Temp Pulse Resp B/P (MAP) Pulse Ox O2 Delivery O2 Flow Rate FiO2 08/25/17 08:00 98.5 94 20 53/69 (64) 95 08/25/17 08:00 94 08/25/17 07:07 95 Nasal Cannula 3.00 08/25/17 04:00 98.6 80 41 129/62 (84) 96 08/25/17 04:00 80 08/25/17 03:52 97 35 08/25/17 01:39 97 35 08/25/17 00:00 86 08/25/17 00:00 98.4 86 16 111/57 (75) 94 08/24/17 21:07 96 35 08/24/17 20:00 98.5 92 24 120/58 (78) 95 08/24/17 20:00 92 08/24/17 19:23 96 Nasal Cannula 3.00 08/24/17 18:00 87 33 95 08/24/17 18:00 87 08/24/17 16:00 90 22 96 08/24/17 16:00 90 08/24/17 12:00 86 14 115/59 (77) 95 08/24/17 12:00 86 08/24/17 11:00 83 . Laboratory Tests Test 08/24/17 05:01 08/25/17 05:30 White Blood Count 9.8 TH/MM3 10.7 TH/MM3 Red Blood Count 3.85 MIL/MM3 3.66 MIL/MM3 Hemoglobin 11.9 GM/DL 11.3 GM/DL Hematocrit 35.4 % 33.8 % Mean Corpuscular Volume 91.8 FL 92.4 FL Mean Corpuscular Hemoglobin 30.9 PG 30.9 PG Mean Corpuscular Hemoglobin Concent 33.7 % 33.5 % Red Cell Distribution Width 15.1 % 14.9 % Platelet Count 140 TH/MM3 173 TH/MM3 Mean Platelet Volume 9.3 FL 8.8 FL Neutrophils (%) (Auto) 76.7 % 76.3 % Lymphocytes (%) (Auto) 9.3 % 10.6 % Monocytes (%) (Auto) 11.0 % 10.6 % Eosinophils (%) (Auto) 2.3 % 2.0 % Basophils (%) (Auto) 0.7 % 0.5 % Neutrophils # (Auto) 7.5 TH/MM3 8.2 TH/MM3 Lymphocytes # (Auto) 0.9 TH/MM3 1.1 TH/MM3 Monocytes # (Auto) 1.1 TH/MM3 1.1 TH/MM3 Eosinophils # (Auto) 0.2 TH/MM3 0.2 TH/MM3 Basophils # (Auto) 0.1 TH/MM3 0.1 TH/MM3 CBC Comment AUTO DIFF DIFF FINAL Differential Total Cells Counted 100 Neutrophils % (Manual) 62 % Band Neutrophils % 11 % Lymphocytes % 12 % Monocytes % 12 % Eosinophils % 2 % Neutrophils # (Manual) 7.3 TH/MM3 Myelocytes 1 % Differential Comment FINAL DIFF MANUAL Platelet Estimate LOW Platelet Morphology Comment NORMAL Laboratory Tests Test 08/24/17 05:01 08/25/17 05:30 Blood Urea Nitrogen 14 MG/DL 10 MG/DL Creatinine 0.73 MG/DL 0.65 MG/DL Random Glucose 132 MG/DL 107 MG/DL Calcium Level 8.8 MG/DL 8.3 MG/DL Phosphorus Level 2.4 MG/DL Magnesium Level 1.8 MG/DL Sodium Level 139 MEQ/L 142 MEQ/L Potassium Level 3.7 MEQ/L 3.8 MEQ/L Chloride Level 105 MEQ/L 105 MEQ/L Carbon Dioxide Level 27.7 MEQ/L 28.7 MEQ/L Anion Gap 6 MEQ/L 8 MEQ/L Estimat Glomerular Filtration Rate 104 ML/MIN 119 ML/MIN Microbiology Date/Time Source Procedure Growth Status 08/22/17 11:25 Blood Peripheral Aerobic Blood Culture - Preliminary NO GROWTH IN 2 DAYS Resulted 08/22/17 11:25 Blood Peripheral Anaerobic Blood Culture - Preliminary NO GROWTH IN 2 DAYS Resulted 08/22/17 11:15 Blood Peripheral Aerobic Blood Culture - Preliminary Gram Positive Cocci Resulted 08/22/17 11:15 Blood Peripheral Anaerobic Blood Culture - Preliminary NO GROWTH IN 2 DAYS Resulted 08/22/17 12:33 Urine Clean Catch Urine Culture - Final NO GROWTH IN 48 HOURS. Complete Imaging Last Impressions Chest X-Ray 08/22/17 0600 Signed Impressions: Service Date/Time: Tuesday, August 22, 2017 03:48 - CONCLUSION: Unchanged left lower lobe infiltrate and tiny effusion. Cardiomegaly. Bryan Hernandez Jr., MD Upper Extremity Ultrasound 08/22/17 0000 Signed Impressions: Service Date/Time: Tuesday, August 22, 2017 09:18 - CONCLUSION: 1. No sonographic evidence for upper extremity DVT. Yazan Deleon MD Renal Ultrasound 08/22/17 0000 Signed Impressions: Service Date/Time: Tuesday, August 22, 2017 08:32 - CONCLUSION: 1. Nonobstructing renal calcifications. No hydronephrosis. Bladder removed. Wily Dunham MD Lower Extremity Ultrasound 08/22/17 0000 Signed Impressions: Service Date/Time: Tuesday, August 22, 2017 08:18 - CONCLUSION: Negative for DVT. Wily Dunham MD Head CT 08/21/17 0000 Signed Impressions: Service Date/Time: Monday, August 21, 2017 23:15 - CONCLUSION: 1. No acute intracranial abnormality. 2. Atrophy. 3. Encephalomalacia of the right parietal lobe suggesting prior infarction. Bryan Hernandez Jr., MD Physical Exam GENERAL: Morbidly obese, awake and alert, in no apparent distress. On nasal O2 SKIN: No rashes, ecchymoses or lesions. Cool and dry. No embolic lesions HEAD: Atraumatic. Normocephalic. No temporal or scalp tenderness. EYES: Pupils equal round and reactive. Extraocular motions intact. No scleral icterus. No injection or drainage. ENT: Nose without bleeding, purulent drainage or septal hematoma. Moist mucosa NECK: Large neck, Trachea midline. Supple, nontender, no meningeal signs. CARDIOVASCULAR: Regular rate and rhythm without murmurs, gallops, or rubs. RESPIRATORY: Clear to auscultation. Breath sounds equal bilaterally. No wheezes , rales, or rhonchi. Decreased BS at baases GASTROINTESTINAL: Abdomen soft, obese, non-tender, nondistended. Ostomy site ok. MUSCULOSKELETAL: Extremities without clubbing, cyanosis, or edema. No calf tenderness. Negative Homans sign bilaterally. NEUROLOGICAL: Grossly non-focal Psych cooperative IV line sites with no e.o infection. Assessment & Plan Remarks Severe Sepsis MRSA bacteremia - has new (+) BC Pneumonia possible MRSA pneumonia. Acute hypoxic respiratory failure on BiPAP Acute renal failure on admission: sepsis, prerenal. Bladder and Prostate cancer s/p prostatectomy, cystectomy and ileal conduit. Morbid Obesity BMI 49 kg/m2 Recs: Continue Ceftriaxone IV Continue Vanco IV (target 15-20) Order sputum C/S - he is bringing up some phlegm now Repeat BC Echo Follow cultures Monitor progress Potential discharge on oral zyvox with levaquin depending on clinical response and results of work-up D/W RN Dr Weber covering this weekend Veronica Javier MD Aug 25, 2017 10:28
--- NOTE | 2017-08-25 10:38 | HHI.FPPN ---
Subjective Remarks Patient was seen and examined this morning. He states he feels great aside from pain in front of left ear which he thinks is related to the CPAP machine. He denies chest pain, shortness of breath, nausea, vomiting, abdominal pain. Has nagging cough. He has been having regular bowel movements, loose. (Stacy Sampson MD) Objective Vitals Vital Signs Date Time Temp Pulse Resp B/P (MAP) Pulse Ox O2 Delivery O2 Flow Rate FiO2 08/25/17 08:00 98.5 94 20 53/69 (64) 95 08/25/17 07:07 95 Nasal Cannula 3.00 08/25/17 04:00 98.6 80 41 129/62 (84) 96 08/25/17 04:00 80 08/25/17 03:52 97 35 08/25/17 01:39 97 35 08/25/17 00:00 86 08/25/17 00:00 98.4 86 16 111/57 (75) 94 08/24/17 21:07 96 35 08/24/17 20:00 98.5 92 24 120/58 (78) 95 08/24/17 20:00 92 08/24/17 19:23 96 Nasal Cannula 3.00 08/24/17 18:00 87 33 95 08/24/17 18:00 87 08/24/17 16:00 90 22 96 08/24/17 16:00 90 08/24/17 12:00 86 14 115/59 (77) 95 08/24/17 12:00 86 08/24/17 11:00 83 I/O 08/24/17 08/24/17 08/24/17 08/25/17 08/25/17 08/25/17 07:00 15:00 23:00 07:00 15:00 23:00 Intake Total 515 ml 460 ml 120 ml Output Total 1150 ml 600 ml 1800 ml Balance -635 ml -140 ml -1680 ml Intake Oral 460 ml 120 ml IV Total 515 ml Output Urine Total 1150 ml 600 ml 1800 ml # Bowel Movements 1 0 (Stacy Sampson MD) Result Diagram: 08/25/17 0530 08/25/17 0530 Imaging Last Impressions Upper Extremity Ultrasound 08/23/17 0000 Signed Impressions: Service Date/Time: Wednesday, August 23, 2017 12:43 - CONCLUSION: 1. Diffuse soft tissue swelling without sonographic evidence for focal drainable fluid collection at this time. Yazan Deleon MD Chest X-Ray 08/22/17 0600 Signed Impressions: Service Date/Time: Tuesday, August 22, 2017 03:48 - CONCLUSION: Unchanged left lower lobe infiltrate and tiny effusion. Cardiomegaly. Bryan Hernandez Jr., MD Renal Ultrasound 08/22/17 0000 Signed Impressions: Service Date/Time: Tuesday, August 22, 2017 08:32 - CONCLUSION: 1. Nonobstructing renal calcifications. No hydronephrosis. Bladder removed. Wily Dunham MD Lower Extremity Ultrasound 08/22/17 0000 Signed Impressions: Service Date/Time: Tuesday, August 22, 2017 08:18 - CONCLUSION: Negative for DVT. Wily Dunham MD Head CT 08/21/17 0000 Signed Impressions: Service Date/Time: Monday, August 21, 2017 23:15 - CONCLUSION: 1. No acute intracranial abnormality. 2. Atrophy. 3. Encephalomalacia of the right parietal lobe suggesting prior infarction. Bryan Hernandez Jr., MD Objective Remarks GENERAL: This is a well-nourished, well-developed male patient. Obese and nasal cannula in place. In no respiratory distress and pleasantly conversant during the interview NEURO: Awake, alert, oriented to person, place, and year. Moves all extremities. SKIN: Cool and dry. No ecchymoses. No signs of skin infections on visualized areas. HEAD: Atraumatic. Normocephalic. No temporal or scalp tenderness. Patient has left-sided swelling in front of the ear. TMs clear bilaterally, minor irritation of left ear canal. EYES: No scleral icterus. Mild physiologic drainage. ENT: Nose without bleeding or purulent drainage. MMM with no erythema, exudates , or petechiae noted in the throat. No evidence of parotitis on exam. NECK: Very large neck with redundant skin. No obvious JVD or lymphadenopathy. Nontender, no meningeal signs. CARDIOVASCULAR: Regular rate and rhythm without murmurs, gallops, or rubs. Heart sounds distant due to body habitus. RESPIRATORY: Distant breath sounds due to body habitus, but clear to auscultation. No wheezes. GASTROINTESTINAL: Abdomen obese. Non-tender. Ventral hernia noted on left lower abdomen. GENITOURO: Urostomy tube with site approximately mid-abdomen with ostomy bag in place. MUSCULOSKELETAL: Left hand/forearm improved. Extremities without clubbing, cyanosis, or edema. No joint tenderness, effusion, or edema noted. No calf tenderness. Medications and IVs Inpatient Medications Acetaminophen (Tylenol) 650 mg Q4H PRN PO TEMP > 100.4; Start 08/21/17 at 23:00 Albuterol Sulfate (Albuterol Neb) 2.5 mg Q2HR NEB PRN INH SHORTNESS OF BREATH Last administered on 08/25/17 01:39; Start 08/21/17 at 12:00 Albuterol/ Ipratropium (Duoneb Neb) 1 ampule Q6HR NEB INH Last administered on 08/25/17 03:52; Start 08/24/17 at 16:00 Aspirin (Ecotrin Ec) 81 mg DAILY PO Last administered on 08/25/17at 08:11; Start 08/21/17 at 12:00 Atorvastatin Calcium (Lipitor) 40 mg HS PO Last administered on 08/24/17at 23:02 ; Start 08/21/17 at 21:00 Azithromycin 500 mg/Sodium Chloride 250 ml @ 250 mls/hr Q24H IV Last administered on 08/22/17at 14:47; Start 08/21/17 at 13:00; Stop 08/22/17 at 18:16 ; Status DC Bisacodyl (Dulcolax Supp) 10 mg DAILY PRN RECTAL SEVERE CONSITIPATION; Start at 11:00 Budesonide (Pulmicort Respule Neb) 0.5 mg Q12HR NEB NEB Last administered on at 09:18; Start 08/21/17 at 12:00 Cefepime HCl 2000 mg/Sodium Chloride 100 ml @ 200 mls/hr Q8H IV Last administered on 08/23/17at 07:46; Start 08/21/17 at 16:00; Stop 08/23/17 at 12:47 ; Status DC Ceftriaxone Sodium 2000 mg/ Sodium Chloride 100 ml @ 200 mls/hr Q24H IV Last administered on 08/24/17at 11:29; Start 08/23/17 at 13:00 Chlorhexidine Gluconate (Chlorhexidine 2% Cloth) 3 pack UNSCH PRN TOPICAL HYGIENIC CARE; Start 08/22/17 at 03:15; Stop 08/27/17 at 03:09 Donepezil HCl (Aricept) 10 mg HS PO Last administered on 08/24/17at 23:01; Start 08/21/17 at 21:00 Enoxaparin Sodium (Lovenox Inj) 40 mg Q24H SQ Last administered on 08/24/17at 11 :29; Start 08/21/17 at 12:00; Status Future hold Lactulose (Lactulose Liq) 30 ml DAILY PRN PO SEVERE CONSITIPATION Last administered on 08/23/17at 08:48; Start 08/21/17 at 11:00 Levothyroxine Sodium (Synthroid) 50 mcg DAILY@0600 PO Last administered on 08/25at 04:54; Start 08/22/17 at 06:00 Lisinopril (Prinivil) 10 mg DAILY PO ; Start 08/22/17 at 09:00; Status Future Hold Lorazepam (Ativan) 0.5 mg Q8H PRN PO ANXIETY; Start 08/21/17 at 11:00; Status Future Hold Magnesium Hydroxide (Milk Of Magnesia Liq) 30 ml Q12H PRN PO Mild constipation ; Start 08/21/17 at 11:00; Stop 08/22/17 at 03:04; Status DC Memantine (Namenda) 10 mg BID PO Last administered on 08/25/17at 08:11; Start at 21:00 Miscellaneous Information SPECIFIC LAB TO BE ... ONCE ONCE .XX ; Start 08/27 at 17:45; Stop 08/27/17 at 17:46 Montelukast Sodium (Singulair) 10 mg HS PO Last administered on 08/24/17at 23:02 ; Start 08/21/17 at 21:00 Naloxone HCl (Narcan Inj) 0.4 mg UNSCH PRN IV PUSH SEE LABEL COMMENTS; Start at 11:00 Non-Formulary Medication 1 cap HS PO ; Start 08/21/17 at 21:00; Stop 08/21/17 at 21:00; Status DC Ondansetron HCl (Zofran Inj) 4 mg Q6H PRN IVP NAUSEA OR VOMITING; Start at 11:00 Pantoprazole Sodium (Protonix) 20 mg DAILY PO Last administered on 08/25/17at 08 :11; Start 08/22/17 at 09:00 Pharmacy Profile Note 0 ml @ 0 mls/hr UNSCH OTHER ; Start 08/21/17 at 10:30 Quetiapine Fumarate (SEROquel) 25 mg BID PO Last administered on 08/21/17at 21: 51; Start 08/21/17 at 21:00; Status Future Hold Senna/Docusate Sodium (Jeimy-Colace) 1 tab BID PO Last administered on at 08:11; Start 08/21/17 at 21:00 Sennosides (Senokot) 17.2 mg Q12H PRN PO Moderate constipation Last administered on 08/23/17at 08:48; Start 08/21/17 at 12:00 Sodium Chloride 1,000 ml @ 75 mls/hr [id number] IV Last administered on at 04:30; Start 08/21/17 at 10:16; Stop 08/23/17 at 13:31; Status DC Sodium Chloride (NS Flush) 2 ml BID IV FLUSH Last administered on 08/25/17at 08: 12; Start 08/21/17 at 21:00 Vancomycin HCl 1500 mg/Sodium Chloride 515 ml @ 257.5 mls/ hr Q18H IV Last administered on 08/24/17at 03:08; Start 08/22/17 at 14:00; Stop 08/25/17 at 08:07 ; Status DC Vancomycin HCl 2000 mg/Sodium Chloride 520 ml @ 257.5 mls/ hr Q18H IV ; Start 08/25/17 at 12:00 (Stacy Sampson MD) Urinary Catheter: Yes (urostomy chronic indwelling) Assessment to: Continue Irizarry insert reason: Prolonged Immobilization (Stacy Sampson MD) A/P Assessment and Plan Patient is a 77-year-old male admitted with severe sepsis, UTI, and pneumonia. He was initially admitted to inpatient [facility] but given altered mental status, worsening respiratory distress, and hypotension overnight was transferred to [facility] for possible pressor support. DNR revoked the morning of 08/22/2017, now FULL CODE. Patient's respiratory status is improving and was transitioned to nasal cannula on 08/23. Continues to clinically improve and will be transferred to a medicine/surgery floor on 08/24. Critical Care consulted 08/21/2017, signed off on 08/23 Infectious disease consultation on 08/22, appreciate recommendations Patient was seen and discussed with Dr. Ina Mascorro and Dr. Dubose Discharge Planning Anticipate at least another 2-3 day inpatient stay for IV antibiotics, respiratory support, culture following (given positive culture from 08/23), fluid status monitoring Seen and discussed with Drs. Ina Mascorro and Rubén Dubose. (Stacy Sampson MD) Attending Attestation Patient was seen, examined and discussed with the medicine team. As noted above , issues today were the discomfort and swelling anterior to the left ear. Patient complains of the apparatus that he wears at night for sleep apnea is irritating that part of his face. There is a palpable tender area there without any particular erythema, it is not fluctuant, and the ear canals and pinnae bilaterally are normal. Exam of the oral cavity shows no inflammation of the parotid duct, no palpable stones or tenderness in the oral cavity. Throat is not inflamed. Exam is as noted, and I agree with the plan. Additional cultures have been obtained as 1 culture revealed gram-positive cocci in clusters and pairs. (Ina Mascorro MD) Problem List: (1) PNA (pneumonia) ICD Codes: J18.9 - Pneumonia, unspecified organism Status: Acute Plan: PNA improving. On nasal cannula, continue CPAP at night, scheduled Duonebs q6hr. Pulmonology consulted, appreciate recs, bedside PFTs were ordered Of note, sensitivities MRSA on blood culture 08/21 shows resistance to Ceftriaxone, sensitivity to Vancomycin Hospital Course: Met sepsis criteria on admission suspected given symptoms, CXR findings, and sepsis. Repeat CXR overnight on 08/21/2017 showing similar LLL infiltrate and cardiomegaly as initial study. Will give antibiotics as above for Severe Sepsis. Respiratory support as follows: * On admission required non-rebreather at 15L and was on BiPap. Transitioned to NC on 08/23 and is tolerating well. DNR CHANGED TO FULL CODE 08/22/2017 after conversation with patient, he states he would want intubation if indicated. ABG improved. * Goal is to see resolution of bacteremia, wean to NC/room air as tolerated, with goal O2 sat >92% with no respiratory distress * Duonebs * Albuterol nebs q2 hr PRN wheezing or SOB * Continue Pulmicort, Singular * Respiratory toilet PRN * Will obtain repeat CXR and/or chest CT if indicated by worsening respiratory status or worsening sepsis * Will need chest x-ray as outpatient after discharge to confirm resolution of pneumonia * Rapid flu negative on admission. * Sputum culture pending. Urine Legionella and Pneumococcal Ag negative. * Antibiotics: status-post IV Vancomycin 1g and Cefepime 2g x 1 in ED. Given indwelling catheter, urinary and respiratory sources of infection, will continue IV Vancomycin (with pharmacy consult) * Vancomycin (08/21-current) * Rocephin 2 g IV daily (08/23 - current) * Cefepime (08/21-08/23) * Azithromycin 500mg IV daily (08/21-08/22) * Recheck CBC and BMP daily. WBC improving and normalized as of 08/23. (2) UTI (urinary tract infection) ICD Codes: N39.0 - Urinary tract infection, site not specified Status: Acute Plan: History of MDRO UTI in 2013 and 2011. Has had chronic indwelling urostomy 7-8 years related to history of bladder cancer which increases risk of severe infection. Urine was dark brown at time of admission, reportedly cloudy prior to admission. UA showing eder color, large LE, 77 WBC, 7 RBCs but urine culture negative. Repeat UA on 08/22 showing trace leukocyte esterase, 14 WBC, 8 RBC and yellow color - improved from UA on admission * Antibiotics as described above * Strict Is/Os q shift * Urine culture negative from 08/21/2017 and 08/23/2017 (3) Bacteremia due to Gram-positive bacteria ICD Codes: R78.81 - Bacteremia Status: Acute Plan: Blood cultures obtained on 08/21 positive for MRSA. Repeat blood cultures 08/22/2017 showing GPC x 1 bottle. Repeat blood cultures ordered 08/25. Sensitivity for blood culture 08/21 showing resistance to Ancef, Rocephin, Erythromycin, Oxacillin, Emi Will follow new cultures Hospital Course: On admission, patient met severe sepsis criteria based on fever, RR and HR elevations, lactic acid >2, WBC 16K on admission. UA evident of infection, and AP CXR suggestive of RLL infiltrate. Suspected sources of UTI and PNA with management as described above. (4) Left arm swelling ICD Codes: M79.89 - Other specified soft tissue disorders Status: Resolved Plan: Patient noted to have left forearm/hand swelling and pain on 08/22. Patient does complain of pain and loss of function following his stroke in May 2017 IV site does not appear to be infiltrated Ultrasound 08/23 showed diffuse soft tissue swelling with no evidence of thrombus Occupational therapy consultation, recommended OT in rehab Patient reporting improvement in pain and is noted to be using his left hand more readily on 08/24 (5) Troponin level elevated ICD Codes: R74.8 - Abnormal levels of other serum enzymes Status: Acute Plan: Troponin level is 0.05 on admission. No chest pain. EKG showing sinus rhythm, rate ~100. No signs of ST changes, T wave changes, or heart block. Troponin elevation possibly related to sepsis, SERGIO. Takes daily aspirin, will continue. * BNP normal * 2D echo showing normal ejection fraction, moderate concentric LVH (6) Thrombocytopenia ICD Codes: D69.6 - Thrombocytopenia, unspecified Status: Resolved Plan: Normalized on labs 08/25 to 173. Will monitor, continue SCDs for today. If platelets still in normal range tomorrow will start heparin. Hospital Course: 90 K on admission, improved to 140 on 08/24, will monitor platelet count and hold prophylactic anticoagulation at this time. Did receive one dose of Lovenox on 08/21/2017 after labs were drawn that day. (7) Altered mental status ICD Codes: R41.82 - Altered mental status Status: Resolved Plan: Altered mental status noted on admission documentation, however, no AMS noted on exam. Mental status fluctuates; did have worsening AMS overnight on 05/2018 but resolved, possibly this was related to hypoxia. Does have recent history of CVA and was at SNF for rehab at time of this admission. * Monitor via neuro checks q 4 hr * CT head obtained 08/21/2017 showing chronic age-related changes with no acute bleed. No signs of infection or ischemia. * Hold home Seroquel, Continue Namenda 10mg PO BID and Aricept 10 mg PO hs (8) Hypothyroidism ICD Codes: E03.9 - Hypothyroidism, unspecified Status: Chronic Plan: On Synthroid 50micrograms daily, continue. TSH 1.63 (9) Paroxysmal atrial fibrillation ICD Codes: I48.0 - Paroxysmal atrial fibrillation Status: Chronic Plan: Per alf records. Rate controlled at this time. He was monitored on telemetry during ICU stay. Will resume the patient complains of any concerning symptoms (10) Fluids/Electrolytes/Nutrition/Prophylaxis Status: Acute Plan: Fluids: No IV fluids at this time Electrolytes: monitor and replete as needed Nutrition: Heart healthy diet DVT Prophylaxis: Early ambulation. Hold Lovenox due to thrombocytopenia, normal today, will start heparin tomorrow if continued improvement GI Prophylaxis: Protonix 20mg IV daily PRN anti-HTN: Hold home antihypertensive for now given hypotension, will monitor (Stacy Sampson MD) Problem Qualifiers (1) PNA (pneumonia): Qualified Codes: J18.1 - Lobar pneumonia, unspecified organism (2) UTI (urinary tract infection): Qualified Codes: N39.0 - Urinary tract infection, site not specified; R31.9 - Hematuria, unspecified (3) Hypothyroidism: Qualified Codes: E03.9 - Hypothyroidism, unspecified Stacy Sampson MD Aug 25, 2017 10:38 Ina Mascorro MD Aug 25, 2017 13:52
[2017-08-25] MEDS: ENOXAPARIN SODIUM 40 MG/0.4 ML SYRINGE SQ SCH (12:10)
[2017-08-25] MEDS: VANCOMYCIN INJ 2,000 MG in SODIUM CHLORID 0.9% 500 ML INJ 500 ML IV SCH (12:10)
[2017-08-25] MEDS: cefTRIAXone INJ 2,000 MG in SODIUM CHLORIDE 0.9% INJ 100 ML IV SCH (14:23)
--- NOTE | 2017-08-25 19:49 | HHI.PR ---
Subjective Remarks Awake and on O2 N/C at 3 L. Used BiPAP at HS. Good output. On Diuretics. PFT to be done. Objective Vital Signs Date Time Temp Pulse Resp B/P (MAP) Pulse Ox O2 Delivery O2 Flow Rate FiO2 08/25/17 16:00 86 08/25/17 16:00 98.3 86 29 120/87 (98) 95 08/25/17 12:00 87 08/25/17 12:00 99.5 87 19 123/58 (79) 95 08/25/17 08:00 98.5 94 20 53/69 (64) 95 08/25/17 08:00 94 08/25/17 07:07 95 Nasal Cannula 3.00 08/25/17 04:00 98.6 80 41 129/62 (84) 96 08/25/17 04:00 80 08/25/17 03:52 97 35 08/25/17 01:39 97 35 08/25/17 00:00 86 08/25/17 00:00 98.4 86 16 111/57 (75) 94 08/24/17 21:07 96 35 08/24/17 20:00 98.5 92 24 120/58 (78) 95 08/24/17 20:00 92 I/O 08/24/17 08/24/17 08/24/17 08/25/17 08/25/17 08/25/17 07:00 15:00 23:00 07:00 15:00 23:00 Intake Total 515 ml 460 ml 120 ml 620 ml 1440 ml Output Total 1150 ml 600 ml 1800 ml 1175 ml Balance -635 ml -140 ml -1680 ml 620 ml 265 ml Intake Oral 460 ml 120 ml 1440 ml IV Total 515 ml 620 ml Output Urine Total 1150 ml 600 ml 1800 ml 1175 ml # Bowel Movements 1 0 1 Result Diagram: 08/25/17 0530 08/25/17 0530 Objective Remarks GENERAL: This is an elderly Obese white male in no acute distress. HEENT: Head is normocephalic. Pupils reactive and equal. Tongue moist. Nasal mucosa edematous. Throat is dry. Ears no inflammation. NECK: Supple. No bruits, thyroid enlargement or lymphadenopathy. CHEST: Distant breath sounds with expiratory wheezes throughout both lung lopez, prolonged expiration. HEART: The heart sounds are irregular S1 and S2. No S3 gallop or murmur. ABDOMEN: Soft, obese without masses. No organomegaly, tenderness and bowel sounds are active. EXTREMITIES: Reveal edema 1+, decreased peripheral pulses and there were no gross motor deficits. NEUROLOGIC: Cranial nerves not tested. RECTAL: Deferred. SKIN: No lesions. Assessment and Plan Assessment and Plan IMPRESSION: 1. Chronic respiratory failure. 2. Exogenous obesity. 3. Possible upper airway stridor. 4. Obstructive sleep apnea syndrome. 5. Urinary tract infection, resolved. Plan : 1. O2 at 3 L. 2. Duonebs qid. 3. Cont Antibiotics per ID 4. Symbicort 160/4.5 mcg, 2 puffs bid 5. Transfer to tele 6. CBc,BMP CXR in am 7. PFT with Bronchodilator Jessie Bowman MD Aug 25, 2017 19:49
[2017-08-25] MEDS: MONTELUKAST SODIUM 10 MG TAB PO SCH (20:51)
[2017-08-25] MEDS: DONEPEZIL HCL 5 MG TAB PO SCH (20:52)
[2017-08-25] MEDS: ATORVASTATIN 40 MG TAB PO SCH (20:52)
[2017-08-25] MEDS ORDERED: BUDESONIDE-FORMOTEROL 160/4.5 MCG INHALER INH SCH (21:00)
[2017-08-26] VITALS (12 sets, daily range): BP systolic 72–128; BP diastolic 55–76; PULSE 77–87; RESP 19–34; TEMP 97.9–98.9; O2SAT 94–98
[2017-08-26] MEDS: RESP: ALBUTEROL 2.5 MG/IPRATROPIUM 0.5 MG NEB (SCH) INH ×5 (00:15→20:17)
[2017-08-26] MEDS: CHLORHEXIDINE GLUCONATE 2 % 1 PACK (2 CLOTHS)(taper/protocol) TOPICAL SCH (03:52)
[2017-08-26] MEDS: LEVOTHYROXINE SODIUM 50 MCG TAB PO SCH (04:43)
[2017-08-26] MEDS: VANCOMYCIN INJ 2,000 MG in SODIUM CHLORID 0.9% 500 ML INJ 500 ML IV SCH ×2 (04:44→23:18)
[2017-08-26 05:19] LABS: HEMATOCRIT 33.7 % (39.0-51.0); HEMOGLOBIN 11.1 GM/DL (13.0-17.0); MEAN CELL VOLUME 92.6 FL (80.0-100.0); MEAN CORPUSCULAR HEMOGLOBIN 30.6 PG (27.0-34.0); MEAN PLATELET VOLUME 8.8 FL (7.0-11.0); PLATELET COUNT 202 TH/MM3 (150-450); RED BLOOD COUNT 3.64 MIL/MM3 (4.50-5.90); RED CELL DISTRIBUTION WIDTH 14.8 % (11.6-17.2); WHITE BLOOD COUNT 14.4 TH/MM3 (4.0-11.0)
[2017-08-26 05:52] LABS: BICARBONATE 28.5 MEQ/L (21.0-32.0); CALCIUM 8.7 MG/DL (8.5-10.1); CREATININE 0.63 MG/DL (0.60-1.30)
[2017-08-26 09:00] LABS: BANDS 4 % (0-6); LYMPHOCYTES 7 % (9-44); METAMYELOCYTES 1 % (0-1); MONOCYTES 6 % (0-8); MYELOCYTES 1 % (0-0); NEUTROPHIL # MANUAL DIFF 11.5 TH/MM3 (1.8-7.7); POLYS (SEG NEUTROPHILS) 74 % (16-70)
[2017-08-26] MEDS: MEMANTINE HCL 10 MG TAB PO SCH ×2 (09:44→23:14)
[2017-08-26] MEDS: DOCUSATE SODIUM 50 MG/SENNA 8.6 MG TAB PO SCH ×2 (09:44→23:14)
[2017-08-26] MEDS: PANTOPRAZOLE SOD 20 MG DELAYED RELEASE TAB PO SCH (09:44)
[2017-08-26] MEDS: ASPIRIN EC 81 MG TABEC PO SCH (09:44)
--- NOTE | 2017-08-26 12:03 | HHI.FPPN ---
Subjective Remarks No acute events overnight. Patient denies chest pain or shortness of breath. He does continue to complain of left cheek/preauricular swelling and discomfort. States that the BiPAP machine seems to irritate it. Otherwise no fevers or chills, nausea or vomiting, abdominal pain. (Rubén Dubose MD R1) Objective Vitals Vital Signs Date Time Temp Pulse Resp B/P (MAP) Pulse Ox O2 Delivery O2 Flow Rate FiO2 08/26/17 08:00 87 08/26/17 08:00 98.4 87 25 128/62 (84) 94 08/26/17 07:52 95 Nasal Cannula 6.00 08/26/17 05:09 98 35 08/26/17 04:00 98.9 77 34 121/55 (77) 96 08/26/17 04:00 81 08/26/17 02:30 96 35 08/26/17 02:00 82 08/26/17 00:15 96 35 08/26/17 00:00 98.7 84 31 125/68 (87) 94 08/26/17 00:00 84 08/25/17 20:11 94 Nasal Cannula 3.00 08/25/17 20:00 99.2 81 27 127/79 (95) 94 08/25/17 20:00 81 08/25/17 16:00 86 08/25/17 16:00 98.3 86 29 120/87 (98) 95 08/25/17 12:00 87 08/25/17 12:00 99.5 87 19 123/58 (79) 95 I/O 08/25/17 08/25/17 08/25/17 08/26/17 08/26/17 08/26/17 07:00 15:00 23:00 07:00 15:00 23:00 Intake Total 120 ml 620 ml 1440 ml 200 ml Output Total 1800 ml 1175 ml 1500 ml Balance -1680 ml 620 ml 265 ml -1300 ml Intake Oral 120 ml 1440 ml 200 ml IV Total 620 ml Output Urine Total 1800 ml 1175 ml 1500 ml # Bowel Movements 0 1 1 (Rubén Dubose MD R1) Result Diagram: 08/26/17 0457 08/26/177 Objective Remarks GENERAL: This is a well-nourished, well-developed male patient. Obese and nasal cannula in place. In no respiratory distress and pleasantly conversant during the interview NEURO: Awake, alert, oriented to person, place, and year. Moves all extremities. SKIN: Cool and dry. No ecchymoses. No signs of skin infections on visualized areas. HEAD: Atraumatic. Normocephalic. No temporal or scalp tenderness. Patient has left-sided facial swelling in the preauricular region. A 3 x 2 cm mobile mass appreciated with no fluctuance. Erythema noted with extension down to the neck. TMs clear bilaterally, minor irritation of left ear canal. EYES: No scleral icterus. Mild physiologic drainage. ENT: Nose without bleeding or purulent drainage. MMM with no erythema, exudates , or petechiae noted in the throat. No evidence of parotitis on exam. NECK: Very large neck with redundant skin. No obvious JVD or lymphadenopathy. Nontender, no meningeal signs. CARDIOVASCULAR: Regular rate and rhythm without murmurs, gallops, or rubs. Heart sounds distant due to body habitus. RESPIRATORY: Distant breath sounds due to body habitus, but clear to auscultation. No wheezes. GASTROINTESTINAL: Abdomen obese. Non-tender. Ventral hernia noted on left lower abdomen. GENITOURO: Urostomy tube with site approximately mid-abdomen with ostomy bag in place. MUSCULOSKELETAL: Left hand/forearm improved. Extremities without clubbing, cyanosis, or edema. No joint tenderness, effusion, or edema noted. No calf tenderness. (Rubén Dubose MD R1) A/P Assessment and Plan Patient is a 77-year-old male admitted with severe sepsis, UTI, and pneumonia. He was initially admitted [facility] but given altered mental status, worsening respiratory distress, and hypotension overnight was transferred to [facility] for possible pressor support. DNR revoked the morning of 08/22/2017, now FULL CODE. Patient's respiratory status is improving and was transitioned to nasal cannula on 08/23. Continues to clinically improve and will be transferred to a medicine/surgery floor on 08/24. Critical Care consulted 08/21/2017, signed off on 08/23 Infectious disease consultation on 08/22, appreciate recommendations Discharge Planning Anticipate at least another 2-3 day inpatient stay for IV antibiotics, respiratory support, culture following (given positive culture from 08/23), fluid status monitoring Seen and discussed with Drs. Ina Mascorro and Corin Morocho (Rubén Dubose MD R1) Attending Attestation Patient was seen, examined and discussed with the medicine team.The physical findings are as documented above,and I participated in the exam. I agree with the Assessment and the plan as documented. Hopefully, patient will be able to be transferred out of intensive care today. Appreciate assistance from Infectious disease And pulmonology. (Ina Mascorro MD) Problem List: (1) PNA (pneumonia) ICD Codes: J18.9 - Pneumonia, unspecified organism Status: Acute Plan: PNA improving. On nasal cannula, continue CPAP at night, scheduled Duonebs q6hr. Pulmonology consulted, appreciate recs, bedside PFTs were ordered Of note, sensitivities MRSA on blood culture 08/21 shows resistance to Ceftriaxone, sensitivity to Vancomycin Hospital Course: Met sepsis criteria on admission suspected given symptoms, CXR findings, and sepsis. Repeat CXR overnight on 08/21/2017 showing similar LLL infiltrate and cardiomegaly as initial study. Will give antibiotics as above for Severe Sepsis. Respiratory support as follows: * On admission required non-rebreather at 15L and was on BiPap. Transitioned to NC on 08/23 and is tolerating well. DNR CHANGED TO FULL CODE 08/22/2017 after conversation with patient, he states he would want intubation if indicated. ABG improved. * Goal is to see resolution of bacteremia, wean to NC/room air as tolerated, with goal O2 sat >92% with no respiratory distress * Duonebs * Albuterol nebs q2 hr PRN wheezing or SOB * Continue Pulmicort, Singular * Respiratory toilet PRN * Will obtain repeat CXR and/or chest CT if indicated by worsening respiratory status or worsening sepsis * Will need chest x-ray as outpatient after discharge to confirm resolution of pneumonia * Rapid flu negative on admission. * Sputum culture pending. Urine Legionella and Pneumococcal Ag negative. * Antibiotics: status-post IV Vancomycin 1g and Cefepime 2g x 1 in ED. Given indwelling catheter, urinary and respiratory sources of infection, will continue IV Vancomycin (with pharmacy consult) * Vancomycin (08/21-current) * Rocephin 2 g IV daily (08/23 - current) * Cefepime (08/21-08/23) * Azithromycin 500mg IV daily (08/21-08/22) * Recheck CBC and BMP daily. WBC mildly elevated at 14.4 on 08/26 * Repeating chest x-ray 08/26 (2) Left facial swelling ICD Codes: R22.0 - Localized swelling, mass and lump, head Plan: Left-sided facial swelling/mass noted on 08/25 in the preauricular region 3 x 2 cm mobile mass is tender and erythematous, nonfluctuant Slightly more swollen on 08/26 Ordering ultrasound to evaluate for lymphadenopathy versus abscess or cellulitis Will consider CT scan (head or neck pending radiology recommendations) if abscess is suspected or undetermined by ultrasound Could be because of mildly elevated WBCs today (3) UTI (urinary tract infection) ICD Codes: N39.0 - Urinary tract infection, site not specified Status: Acute Plan: History of MDRO UTI in 2013 and 2011. Has had chronic indwelling urostomy 7-8 years related to history of bladder cancer which increases risk of severe infection. Urine was dark brown at time of admission, reportedly cloudy prior to admission. UA showing eder color, large LE, 77 WBC, 7 RBCs but urine culture negative. Repeat UA on 08/22 showing trace leukocyte esterase, 14 WBC, 8 RBC and yellow color - improved from UA on admission * Antibiotics as described above * Strict Is/Os q shift * Urine culture negative from 08/21/2017 and 08/23/2017 (4) Bacteremia due to Gram-positive bacteria ICD Codes: R78.81 - Bacteremia Status: Acute Plan: Blood cultures obtained on 08/21 positive for MRSA. Repeat blood cultures 08/22/2017 showing GPC x 1 bottle. Repeat blood cultures ordered 08/25. Sensitivity for blood culture 08/21 showing resistance to Ancef, Rocephin, Erythromycin, Oxacillin, Emi Blood cultures obtained on 08/25 with no growth in 24 hours Hospital Course: On admission, patient met severe sepsis criteria based on fever, RR and HR elevations, lactic acid >2, WBC 16K on admission. UA evident of infection, and AP CXR suggestive of RLL infiltrate. Suspected sources of UTI and PNA with management as described above. (5) Left arm swelling ICD Codes: M79.89 - Other specified soft tissue disorders Status: Resolved Plan: Patient noted to have left forearm/hand swelling and pain on 08/22. Patient does complain of pain and loss of function following his stroke in May 2017 IV site does not appear to be infiltrated Ultrasound 08/23 showed diffuse soft tissue swelling with no evidence of thrombus Occupational therapy consultation, recommended OT in rehab Patient reporting improvement in pain and is noted to be using his left hand more readily on 08/24 (6) Troponin level elevated ICD Codes: R74.8 - Abnormal levels of other serum enzymes Status: Acute Plan: Troponin level is 0.05 on admission. No chest pain. EKG showing sinus rhythm, rate ~100. No signs of ST changes, T wave changes, or heart block. Troponin elevation possibly related to sepsis, SERGIO. Takes daily aspirin, will continue. * BNP normal * 2D echo showing normal ejection fraction, moderate concentric LVH (7) Thrombocytopenia ICD Codes: D69.6 - Thrombocytopenia, unspecified Status: Resolved Plan: Normalized on labs 08/25 to 173. Will monitor, continue SCDs for today. Platelets continued to increase to 202 on 08/26 Will start heparin on 08/26 for DVT prophylaxis Hospital Course: 90 K on admission, improved to 140 on 08/24, will monitor platelet count and held prophylactic anticoagulation until 08/26. Did receive one dose of Lovenox on 08/21/2017 after labs were drawn that day. (8) Altered mental status ICD Codes: R41.82 - Altered mental status Status: Resolved Plan: Altered mental status noted on admission documentation, however, no AMS noted on exam. Mental status fluctuates; did have worsening AMS overnight on 05/2018 but resolved, possibly this was related to hypoxia. Does have recent history of CVA and was at SNF for rehab at time of this admission. * Monitor via neuro checks q 4 hr * CT head obtained 08/21/2017 showing chronic age-related changes with no acute bleed. No signs of infection or ischemia. * Hold home Seroquel, Continue Namenda 10mg PO BID and Aricept 10 mg PO hs (9) Hypothyroidism ICD Codes: E03.9 - Hypothyroidism, unspecified Status: Chronic Plan: On Synthroid 50micrograms daily, continue. TSH 1.63 (10) Paroxysmal atrial fibrillation ICD Codes: I48.0 - Paroxysmal atrial fibrillation Status: Chronic Plan: [facility]. Rate controlled at this time. He was monitored on telemetry during ICU stay. Will resume the patient complains of any concerning symptoms (11) Fluids/Electrolytes/Nutrition/Prophylaxis Status: Acute Plan: Fluids: No IV fluids at this time Electrolytes: monitor and replete as needed Nutrition: Heart healthy diet DVT Prophylaxis: Early ambulation. Starting heparin TID on 08/26, SCDs GI Prophylaxis: Protonix 20mg IV daily PRN anti-HTN: Hold home antihypertensive for now given hypotension, will monitor (Rubén Dubose MD R1) Problem Qualifiers (1) PNA (pneumonia): Qualified Codes: J18.1 - Lobar pneumonia, unspecified organism (2) UTI (urinary tract infection): Qualified Codes: N39.0 - Urinary tract infection, site not specified; R31.9 - Hematuria, unspecified (3) Hypothyroidism: Qualified Codes: E03.9 - Hypothyroidism, unspecified Rubén Dubose MD R1 Aug 26, 2017 12:03 Ina Msacorro MD Aug 26, 2017 14:22
--- NOTE | 2017-08-26 12:45 | RADRPT ---
EXAM DATE/TIME: 08/26/2017 12:09 [facility] COMPARISON: CTA CAROTID ARTERIES W 3D RECON, June 09, 2017, 15:04. CHEST SINGLE AP, August 22, 2017, 3:48. INDICATIONS : Cough and shortness of breath. MEDICAL HISTORY : CVA. Atrial fibrillation. Prostate cancer. SURGICAL HISTORY : Hernia repair. Partial colon removal. Urostomy. Prostatectomy. Bladder removed. ENCOUNTER: Initial ACUITY: 1 day PAIN SCORE: 0/10 LOCATION: Bilateral chest FINDINGS: The heart is enlarged. There are atelectatic changes in the left lower lobe with left base or effusio n. These changes are similar to prior dated 08/22/17. The right lung is clear. The osseous structures are grossly intact. CONCLUSION: 1. Cardiomegaly with small left basilar effusion and atelectasis. Stable compared to previous exam. Wilfredo Dukes MD on August 26, 2017 at 12:41 Board Certified Radiologist. This report was verified electronically.
--- NOTE | 2017-08-26 16:39 | HHI.IDPN ---
Note Infectious Disease Note ID coverage. Notes reviewed. is a 77 y/o WM with past medical history of hypertension, ischemic stroke in May 2305/2017 for which he received TPA. His past medical history is also significant for paroxysmal atrial fibrillation, Obstructive sleep apnea, HTN, Obesity. His past medical history is also significant for prostate cancer, status post prostatectomy, bladder cancer status post cystectomy with ileal conduit. Patient is a resident of [facility] and has a [facility] DNR. With this background, patient presented to [facility] emergency department via [facility] from [facility] complaining of shortness of breath. Upon presentation, patient was febrile to 101.1 with white blood cell count of 16. Chest x-ray demonstrated left lower lobe consolidation. Influenza screen was negative. Patient received broad-spectrum antibiotics including vancomycin, cefepime, azithromycin. He had hypercapnic respiratory failure with pH of 7.29/ PaCO2 52/PA O2 of 237/bicarbonate 24. He was placed on BiPAP 16/8 35%. Blood cultures done on admission are positive for MRSA and ID consulted for Sepsis and MRSA bacteremia. Patient feels okay. He is on room air. Denies shortness of breath. No fever No rash No diarrhea One blood culture from 08/22 has MRSA Sputum culture from 316 has MRSA. Antibiotics Vanco IV Ceftriaxone IV Current Medications Medications (Trade) Dose Ordered Sig/Rodolfo Route PRN Reason Start Time Stop Time Status Last Admin Dose Admin Sodium Chloride (NS Flush) 2 ml UNSCH PRN IV FLUSH FLUSH AFTER USING IV ACCESS 08/21/17 10:00 Sodium Chloride (NS Flush) 2 ml BID IV FLUSH 08/21/17 21:00 08/25/17 20:52 Pharmacy Profile Note 0 ml @ 0 mls/hr UNSCH OTHER 08/21/17 10:30 Albuterol Sulfate (Albuterol Neb) 2.5 mg Q2HR NEB PRN INH SHORTNESS OF BREATH 08/21/17 12:00 08/25/17 20:11 Aspirin (Ecotrin Ec) 81 mg DAILY PO 08/21/17 12:00 08/26/17 09:44 Atorvastatin Calcium (Lipitor) 40 mg HS PO 08/21/17 21:00 08/25/17 20:52 Levothyroxine Sodium (Synthroid) 50 mcg DAILY@0600 PO 08/22/17 06:00 08/26/17 04:43 Lisinopril (Prinivil) 10 mg DAILY PO 08/22/17 09:00 Future Hold Lorazepam (Ativan) 0.5 mg Q8H PRN PO ANXIETY 08/21/17 11:00 Future Hold Montelukast Sodium (Singulair) 10 mg HS PO 08/21/17 21:00 08/25/17 20:51 Quetiapine Fumarate (SEROquel) 25 mg BID PO 08/21/17 21:00 Future Hold 08/21/17 21:51 Pantoprazole Sodium (Protonix) 20 mg DAILY PO 08/22/17 09:00 08/26/17 09:44 Senna/Docusate Sodium (Jeimy-Colace) 1 tab BID PO 08/21/17 21:00 08/26/17 09:44 Sennosides (Senokot) 17.2 mg Q12H PRN PO Moderate constipation 08/21/17 12:00 08/23/17 08:48 Bisacodyl (Dulcolax Supp) 10 mg DAILY PRN RECTAL SEVERE CONSITIPATION 08/21/17 11:00 Lactulose (Lactulose Liq) 30 ml DAILY PRN PO SEVERE CONSITIPATION 08/21/17 11:00 08/23/17 08:48 Acetaminophen (Tylenol) 650 mg Q4H PRN PO TEMP > 100.4 08/21/17 23:00 Ondansetron HCl (Zofran Inj) 4 mg Q6H PRN IVP NAUSEA OR VOMITING 08/21/17 11:00 Naloxone HCl (Narcan Inj) 0.4 mg UNSCH PRN IV PUSH SEE LABEL COMMENTS 08/21/17 11:00 Memantine (Namenda) 10 mg BID PO 08/21/17 21:00 08/26/17 09:44 Donepezil HCl (Aricept) 10 mg HS PO 08/21/17 21:00 08/25/17 20:52 Miscellaneous Information Patient in critical care unit? Ass... Q361D .XX 08/22/17 03:15 Chlorhexidine Gluconate (Chlorhexidine 2% Cloth) 3 pack UNSCH PRN TOPICAL HYGIENIC CARE 08/22/17 03:15 08/27/17 03:09 Ceftriaxone Sodium 2000 mg/ Sodium Chloride 100 ml @ 200 mls/hr Q24H IV 08/23/17 13:00 08/25/17 14:23 Albuterol/ Ipratropium (Duoneb Neb) 1 ampule Q6HR NEB INH 08/24/17 16:00 08/26/17 13:48 Miscellaneous Information SPECIFIC LAB TO BE ... ONCE ONCE .XX 08/27/17 17:45 08/27/17 17:46 Vancomycin HCl 2000 mg/Sodium Chloride 520 ml @ 257.5 mls/ hr Q18H IV 08/25/17 12:00 08/26/17 04:44 Budesonide/ Formoterol Fumarate (Symbicort 160-4.5 Mcg Inh) 2 puff Q12HR INH 08/26/17 09:00 Heparin Sodium (Porcine) (Heparin Inj) 5,000 units Q8H SQ 08/26/17 13:00 Past Medical History Ischemic stroke with residual L hemiparesis. 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 Dementia Chronic bronchitis PTSD Major depressive disorder Morbid Obesity Hypothyroidism Past Surgical History Partial colectomy/proctectomy Prostatectomy Hernia repair Cystectomy with ileal conduit Allergies: Coded Allergies: penicillin G (Unverified Allergy, Severe, as a child, 01/24/17) Objective: Vital Signs Date Time Temp Pulse Resp B/P (MAP) Pulse Ox O2 Delivery O2 Flow Rate FiO2 08/26/17 08:00 87 08/26/17 08:00 98.4 87 25 128/62 (84) 94 08/26/17 07:52 95 Nasal Cannula 6.00 08/26/17 05:09 98 35 08/26/17 04:00 98.9 77 34 121/55 (77) 96 08/26/17 04:00 81 08/26/17 02:30 96 35 08/26/17 02:00 82 08/26/17 00:15 96 35 08/26/17 00:00 98.7 84 31 125/68 (87) 94 08/26/17 00:00 84 08/25/17 20:11 94 Nasal Cannula 3.00 08/25/17 20:00 99.2 81 27 127/79 (95) 94 08/25/17 20:00 81 Laboratory Tests Test 08/25/17 05:30 08/26/17 04:57 White Blood Count 10.7 TH/MM3 14.4 TH/MM3 Red Blood Count 3.66 MIL/MM3 3.64 MIL/MM3 Hemoglobin 11.3 GM/DL 11.1 GM/DL Hematocrit 33.8 % 33.7 % Mean Corpuscular Volume 92.4 FL 92.6 FL Mean Corpuscular Hemoglobin 30.9 PG 30.6 PG Mean Corpuscular Hemoglobin Concent 33.5 % 33.0 % Red Cell Distribution Width 14.9 % 14.8 % Platelet Count 173 TH/MM3 202 TH/MM3 Mean Platelet Volume 8.8 FL 8.8 FL Neutrophils (%) (Auto) 76.3 % Lymphocytes (%) (Auto) 10.6 % Monocytes (%) (Auto) 10.6 % Eosinophils (%) (Auto) 2.0 % Basophils (%) (Auto) 0.5 % Neutrophils # (Auto) 8.2 TH/MM3 Lymphocytes # (Auto) 1.1 TH/MM3 Monocytes # (Auto) 1.1 TH/MM3 Eosinophils # (Auto) 0.2 TH/MM3 Basophils # (Auto) 0.1 TH/MM3 CBC Comment DIFF FINAL AUTO DIFF Differential Comment FINAL DIFF MANUAL Differential Total Cells Counted 100 Neutrophils % (Manual) 74 % Band Neutrophils % 4 % Lymphocytes % 7 % Monocytes % 6 % Eosinophils % 7 % Neutrophils # (Manual) 11.5 TH/MM3 Metamyelocytes 1 % Myelocytes 1 % Platelet Estimate NORMAL Platelet Morphology Comment NORMAL Red Cell Morphology Comment NORMAL Laboratory Tests Test 08/25/17 05:30 08/26/17 04:57 Blood Urea Nitrogen 10 MG/DL 10 MG/DL Creatinine 0.65 MG/DL 0.63 MG/DL Random Glucose 107 MG/DL 117 MG/DL Calcium Level 8.3 MG/DL 8.7 MG/DL Sodium Level 142 MEQ/L 140 MEQ/L Potassium Level 3.8 MEQ/L 3.7 MEQ/L Chloride Level 105 MEQ/L 104 MEQ/L Carbon Dioxide Level 28.7 MEQ/L 28.5 MEQ/L Anion Gap 8 MEQ/L 8 MEQ/L Estimat Glomerular Filtration Rate 119 ML/MIN 124 ML/MIN Microbiology Date/Time Source Procedure Growth Status 08/26/17 04:57 Blood Peripheral Aerobic Blood Culture Pending Received 08/26/17 04:57 Blood Peripheral Anaerobic Blood Culture Pending Received 08/25/17 11:52 Blood Peripheral Aerobic Blood Culture - Preliminary NO GROWTH IN 1 DAY Resulted 08/25/17 11:52 Blood Peripheral Anaerobic Blood Culture - Preliminary NO GROWTH IN 1 DAY Resulted 08/25/17 11:34 Blood Peripheral Aerobic Blood Culture - Preliminary NO GROWTH IN 1 DAY Resulted 08/25/17 11:34 Blood Peripheral Anaerobic Blood Culture - Preliminary NO GROWTH IN 1 DAY Resulted 08/25/17 11:27 Sputum Expectorated Sputum Gram Stain - Final Resulted 08/25/17 11:27 Sputum Culture - Preliminary S. Aureus Mrsa Resulted Imaging Chest X-Ray 08/26/17 0000 Signed Impressions: Service Date/Time: Saturday, August 26, 2017 12:09 - CONCLUSION: 1. Cardiomegaly with small left basilar effusion and atelectasis. Stable compared to previous exam. Wilfredo Dukes MD Chest X-Ray 08/22/17 0600 Signed Impressions: Service Date/Time: Tuesday, August 22, 2017 03:48 - CONCLUSION: Unchanged left lower lobe infiltrate and tiny effusion. Cardiomegaly. Bryan Hernandez Jr., MD Upper Extremity Ultrasound 08/22/17 0000 Signed Impressions: Service Date/Time: Tuesday, August 22, 2017 09:18 - CONCLUSION: 1. No sonographic evidence for upper extremity DVT. Yazan Deleon MD Renal Ultrasound 08/22/17 0000 Signed Impressions: Service Date/Time: Tuesday, August 22, 2017 08:32 - CONCLUSION: 1. Nonobstructing renal calcifications. No hydronephrosis. Bladder removed. Wily Dunham MD Lower Extremity Ultrasound 08/22/17 0000 Signed Impressions: Service Date/Time: Tuesday, August 22, 2017 08:18 - CONCLUSION: Negative for DVT. Wily Dunham MD Head CT 08/21/17 0000 Signed Impressions: Service Date/Time: Monday, August 21, 2017 23:15 - CONCLUSION: 1. No acute intracranial abnormality. 2. Atrophy. 3. Encephalomalacia of the right parietal lobe suggesting prior infarction. Bryan Hernandez Jr., MD Physical Exam GENERAL: Alert and oriented, no acute distress. HEENT: Pupils reactive to light. Extraocular movements intact. No icterus. NECK: Supple without adenopathy. Obese. LUNGS: Basilar rhonchi bilateral. HEART: S1 and S2. No murmurs. ABDOMEN: Bowel sounds present, soft, nontender. EXTREMITIES: No clubbing cyanosis or edema. SKIN: No rash. NEUROLOGIC: Nonfocal. PSYCH: Calm and cooperative. IV lines without evidence of infection. Assessment & Plan Severe Sepsis MRSA bacteremia - has new (+) BC MRSA pneumonia. Acute hypoxic respiratory failure on BiPAP Acute renal failure on admission: sepsis, prerenal. Bladder and Prostate cancer s/p prostatectomy, cystectomy and ileal conduit. Morbid Obesity BMI 49 kg/m2 Recs: Continue Ceftriaxone IV Continue Vanco IV (target 15-20) Repeat BC Monitor progress Potential discharge on oral zyvox with levaquin depending on clinical response and results of work-up Rick Weber MD Aug 26, 2017 16:39
[2017-08-26] MEDS: cefTRIAXone INJ 2,000 MG in SODIUM CHLORIDE 0.9% INJ 100 ML IV SCH (18:31)
--- NOTE | 2017-08-26 22:46 | RADRPT ---
EXAM DATE/TIME: 08/26/2017 22:06 [facility] COMPARISON: No previous studies available for comparison. INDICATIONS : Left neck abscess. MEDICAL HISTORY : Carcinoma, prostate. CVA. Afib. SURGICAL HISTORY : Prostatectomy. Hernia repair. Partial colon removal. Urostomy. Bladder removed. ENCOUNTER: Initial ACUITY: 1 day PAIN SCORE: 0/10 LOCATION: Left neck AREA EVALUATED: Left neck. FINDINGS: MASSES: None. FLUID COLLECTIONS: None. OTHER: Negative. CONCLUSION: 1. No sonographic abnormalities identified in the left neck in the area of redness. Wily Dunham MD on August 26, 2017 at 22:43 Board Certified Radiologist. This report was verified electronically.
[2017-08-26] MEDS: DONEPEZIL HCL 5 MG TAB PO SCH (23:14)
[2017-08-26] MEDS: ATORVASTATIN 40 MG TAB PO SCH (23:15)
[2017-08-26] MEDS: HEPARIN SODIUM - SQ 10,000 UNITS/ML VIAL SQ SCH (23:15)
[2017-08-26] MEDS: MONTELUKAST SODIUM 10 MG TAB PO SCH (23:15)
[2017-08-26] MEDS: BUDESONIDE-FORMOTEROL 160/4.5 MCG INHALER INH SCH (23:16)
[2017-08-26] MEDS: SODIUM CHLORIDE 0.9% FLUSH 10 ML FLUSH IV FLUSH SCH (23:16)
[2017-08-27] VITALS (8 sets, daily range): BP systolic 93–130; BP diastolic 55–81; PULSE 80–90; RESP 20–41; TEMP 98–98.7; O2SAT 93–96
[2017-08-27] MEDS: RESP: ALBUTEROL 2.5 MG/IPRATROPIUM 0.5 MG NEB (SCH) INH ×4 (03:55→21:00)
[2017-08-27] MEDS: LEVOTHYROXINE SODIUM 50 MCG TAB PO SCH (05:23)
[2017-08-27] MEDS: HEPARIN SODIUM - SQ 10,000 UNITS/ML VIAL SQ SCH ×3 (05:23→21:00)
--- NOTE | 2017-08-27 07:42 | HHI.FPPN ---
Subjective Remarks Patient was seen and examined this morning. He states he feels great. He does not want to go back to his custodial because he feels the food is unsafe and he is unhappy with his care there. He denies fevers, chills, SOB, chest pain, n/ v, constipation. His ostomy is not leaking. OT worked with him yesterday. Eating and drinking without difficulty. Objective Vitals Vital Signs Date Time Temp Pulse Resp B/P (MAP) Pulse Ox O2 Delivery O2 Flow Rate FiO2 08/27/17 04:00 83 08/27/17 04:00 98.0 83 41 116/55 (75) 94 08/27/17 00:00 90 08/27/17 00:00 98.4 90 30 130/58 (82) 93 08/26/17 20:17 96 Nasal Cannula 4.00 08/26/17 20:00 80 08/26/17 20:00 98.2 84 33 93/76 (82) 97 08/26/17 16:00 81 08/26/17 16:00 97.9 81 25 119/61 (80) 94 08/26/17 12:00 78 08/26/17 12:00 98.9 78 19 72/64 (67) 94 08/26/17 08:00 87 08/26/17 08:00 98.4 87 25 128/62 (84) 94 08/26/17 07:52 95 Nasal Cannula 6.00 I/O 08/26/17 08/26/17 08/26/17 08/27/17 08/27/17 08/27/17 07:00 15:00 23:00 07:00 15:00 23:00 Intake Total 200 ml 650 ml 350 ml Output Total 1500 ml 1200 ml 750 ml Balance -1300 ml -550 ml -400 ml Intake Oral 200 ml 650 ml 350 ml Output Urine Total 1500 ml 1200 ml Stool Total 750 ml # Bowel Movements 1 1 Result Diagram: 08/26/17 0457 08/26/17 0457 Imaging Last Impressions Neck Ultrasound 08/26/17 0955 Signed Impressions: Service Date/Time: Saturday, August 26, 2017 22:06 - CONCLUSION: 1. No sonographic abnormalities identified in the left neck in the area of redness. Wily Dunham MD Chest X-Ray 08/26/17 0000 Signed Impressions: Service Date/Time: Saturday, August 26, 2017 12:09 - CONCLUSION: 1. Cardiomegaly with small left basilar effusion and atelectasis. Stable compared to previous exam. Wilfredo Dukes MD Upper Extremity Ultrasound 08/23/17 0000 Signed Impressions: Service Date/Time: Wednesday, August 23, 2017 12:43 - CONCLUSION: 1. Diffuse soft tissue swelling without sonographic evidence for focal drainable fluid collection at this time. Yazan Deleon MD Renal Ultrasound 08/22/17 0000 Signed Impressions: Service Date/Time: Tuesday, August 22, 2017 08:32 - CONCLUSION: 1. Nonobstructing renal calcifications. No hydronephrosis. Bladder removed. Wily Dunham MD Lower Extremity Ultrasound 08/22/17 0000 Signed Impressions: Service Date/Time: Tuesday, August 22, 2017 08:18 - CONCLUSION: Negative for DVT. Wily Dunham MD Head CT 08/21/17 0000 Signed Impressions: Service Date/Time: Monday, August 21, 2017 23:15 - CONCLUSION: 1. No acute intracranial abnormality. 2. Atrophy. 3. Encephalomalacia of the right parietal lobe suggesting prior infarction. Bryan Hernandez Jr., MD Objective Remarks GENERAL: This is a well-nourished, well-developed male patient. Obese and nasal cannula in place at 4L. In no respiratory distress speaking full sentences. NEURO: Awake, alert, oriented to person, place, and year. Moves all extremities. SKIN: Cool and dry. No ecchymoses. No signs of skin infections on visualized areas. HEAD: Atraumatic. Normocephalic. No temporal or scalp tenderness. Patient has left-sided facial swelling approximate 3x2 in the preauricular region, with no obvious mass present and mildly tender to palpation. No fluctuance. Erythema noted but improving. TMs clear bilaterally, minor irritation of left ear canal. EYES: No scleral icterus. Mild physiologic drainage. ENT: Nose without bleeding or purulent drainage. MMM with no erythema, exudates , or petechiae noted in the throat. No evidence of parotitis on exam. NECK: Very large neck with redundant skin. No obvious JVD or lymphadenopathy. Nontender, no meningeal signs. CARDIOVASCULAR: Regular rate and rhythm without murmurs, gallops, or rubs. Heart sounds distant due to body habitus. RESPIRATORY: Distant breath sounds due to body habitus, but clear to auscultation. No wheezes. GASTROINTESTINAL: Abdomen obese. Non-tender. Ventral hernia noted on left lower abdomen. GENITOURO: Urostomy tube with site approximately mid-abdomen with ostomy bag in place. Some whitish discharge noted in the bag. MUSCULOSKELETAL: Left hand/forearm improved. Extremities without clubbing, cyanosis, or edema. No joint tenderness, effusion, or edema noted. No calf tenderness. Medications and IVs Inpatient Medications Acetaminophen (Tylenol) 650 mg Q4H PRN PO TEMP > 100.4; Start 08/21/17 at 23:00 Albuterol Sulfate (Albuterol Neb) 2.5 mg Q2HR NEB PRN INH SHORTNESS OF BREATH Last administered on 08/25/17at 20:11; Start 08/21/17 at 12:00 Albuterol/ Ipratropium (Duoneb Neb) 1 ampule Q6HR NEB INH Last administered on 08/27/17at 03:55; Start 08/24/17 at 16:00 Aspirin (Ecotrin Ec) 81 mg DAILY PO Last administered on 08/26/17at 09:44; Start 08/21/17 at 12:00 Atorvastatin Calcium (Lipitor) 40 mg HS PO Last administered on 08/26/17at 23:15 ; Start 08/21/17 at 21:00 Azithromycin 500 mg/Sodium Chloride 250 ml @ 250 mls/hr Q24H IV Last administered on 08/22/17at 14:47; Start 08/21/17 at 13:00; Stop 08/22/17 at 18:16 ; Status DC Bisacodyl (Dulcolax Supp) 10 mg DAILY PRN RECTAL SEVERE CONSITIPATION; Start at 11:00 Budesonide (Pulmicort Respule Neb) 0.5 mg Q12HR NEB NEB Last administered on at 20:11; Start 08/21/17 at 12:00; Stop 08/26/17 at 07:12; Status DC Budesonide/ Formoterol Fumarate (Symbicort 160-4.5 Mcg Inh) 2 puff Q12HR INH Last administered on 08/26/17at 23:16; Start 08/26/17 at 09:00 Cefepime HCl 2000 mg/Sodium Chloride 100 ml @ 200 mls/hr Q8H IV Last administered on 08/23/17at 07:46; Start 08/21/17 at 16:00; Stop 08/23/17 at 12:47 ; Status DC Ceftriaxone Sodium 2000 mg/ Sodium Chloride 100 ml @ 200 mls/hr Q24H IV Last administered on 08/26/17at 18:31; Start 08/23/17 at 13:00 Chlorhexidine Gluconate (Chlorhexidine 2% Cloth) 3 pack UNSCH PRN TOPICAL HYGIENIC CARE; Start 08/22/17 at 03:15; Stop 08/27/17 at 03:09; Status DC Donepezil HCl (Aricept) 10 mg HS PO Last administered on 08/26/17at 23:14; Start 08/21/17 at 21:00 Enoxaparin Sodium (Lovenox Inj) 40 mg Q24H SQ Last administered on 08/25/17at 12 :10; Start 08/21/17 at 12:00; Stop 08/26/17 at 15:11; Status DC Heparin Sodium (Porcine) (Heparin Inj) 5,000 units Q8H SQ Last administered on 08/27/17at 05:23; Start 08/26/17 at 13:00 Lactulose (Lactulose Liq) 30 ml DAILY PRN PO SEVERE CONSITIPATION Last administered on 08/23/17at 08:48; Start 08/21/17 at 11:00 Levothyroxine Sodium (Synthroid) 50 mcg DAILY@0600 PO Last administered on 08/27at 05:23; Start 08/22/17 at 06:00 Lisinopril (Prinivil) 10 mg DAILY PO ; Start 08/22/17 at 09:00; Status Future Hold Lorazepam (Ativan) 0.5 mg Q8H PRN PO ANXIETY; Start 08/21/17 at 11:00; Status Future Hold Magnesium Hydroxide (Milk Of Magnesia Liq) 30 ml Q12H PRN PO Mild constipation ; Start 08/21/17 at 11:00; Stop 08/22/17 at 03:04; Status DC Memantine (Namenda) 10 mg BID PO Last administered on 08/26/17at 23:14; Start at 21:00 Miscellaneous Information SPECIFIC LAB TO BE ... ONCE ONCE .XX ; Start 08/27 at 17:45; Stop 08/27/17 at 17:46 Montelukast Sodium (Singulair) 10 mg HS PO Last administered on 08/26/17at 23:15 ; Start 08/21/17 at 21:00 Naloxone HCl (Narcan Inj) 0.4 mg UNSCH PRN IV PUSH SEE LABEL COMMENTS; Start at 11:00 Non-Formulary Medication 1 cap HS PO ; Start 08/21/17 at 21:00; Stop 08/21/17 at 21:00; Status DC Ondansetron HCl (Zofran Inj) 4 mg Q6H PRN IVP NAUSEA OR VOMITING; Start at 11:00 Pantoprazole Sodium (Protonix) 20 mg DAILY PO Last administered on 08/26/17at 09 :44; Start 08/22/17 at 09:00 Pharmacy Profile Note 0 ml @ 0 mls/hr UNSCH OTHER ; Start 08/21/17 at 10:30 Quetiapine Fumarate (SEROquel) 25 mg BID PO Last administered on 08/21/17at 21: 51; Start 08/21/17 at 21:00; Status Future Hold Senna/Docusate Sodium (Jeimy-Colace) 1 tab BID PO Last administered on at 23:14; Start 08/21/17 at 21:00 Sennosides (Senokot) 17.2 mg Q12H PRN PO Moderate constipation Last administered on 08/23/17at 08:48; Start 08/21/17 at 12:00 Sodium Chloride 1,000 ml @ 75 mls/hr [id number] IV Last administered on at 04:30; Start 08/21/17 at 10:16; Stop 08/23/17 at 13:31; Status DC Sodium Chloride (NS Flush) 2 ml BID IV FLUSH Last administered on 08/26/17at 23: 16; Start 08/21/17 at 21:00 Vancomycin HCl 1500 mg/Sodium Chloride 515 ml @ 257.5 mls/ hr Q18H IV Last administered on 08/24/17at 03:08; Start 08/22/17 at 14:00; Stop 08/25/17 at 08:07 ; Status DC Vancomycin HCl 2000 mg/Sodium Chloride 520 ml @ 257.5 mls/ hr Q18H IV Last administered on 08/26/17at 23:18; Start 08/25/17 at 12:00 Urinary Catheter: Yes Assessment to: Continue Irizarry insert reason: Prolonged Immobilization Vascular Central Line Catheter: No A/P Assessment and Plan Patient is a 77-year-old male admitted with severe sepsis, UTI, and pneumonia. He was initially admitted to inpatient same day surgery center but given altered mental status, worsening respiratory distress, and hypotension overnight was transferred to [facility] for possible pressor support. DNR revoked the morning of 08/22/2017, now FULL CODE. Patient's respiratory status is improving and was transitioned to nasal cannula on 08/23. Continues to clinically improve and will be transferred to a medicine/surgery floor on 08/24. Critical Care consulted 08/21/2017, signed off on 08/23 Infectious disease consultation on 08/22, appreciate recommendations Patient transfer to [facility] floor was placed on 08/24 Discharge Planning Anticipate at least one more day here, following cultures and labs for resolution of infection. Still on IV antibiotics. Positive blood culture from . Discussed with Dr. Ina Mascorro Problem List: (1) PNA (pneumonia) ICD Codes: J18.9 - Pneumonia, unspecified organism Status: Acute Plan: PNA improving. On nasal cannula, continue CPAP at night, scheduled Duonebs q6hr. Pulmonology consulted, appreciate recs, bedside PFTs were ordered Of note, sensitivities MRSA on blood culture 08/21 shows resistance to Ceftriaxone, sensitivity to Vancomycin Sputum culture showing MRSA Hope was for patient to be discharged on oral Zyvox with Levaquin, possibly on Infectious disease consulted, appreciate recommendations Of note leukocytosis is improving Hospital Course: Met sepsis criteria on admission suspected given symptoms, CXR findings, and sepsis. Repeat CXR overnight on 08/21/2017 showing similar LLL infiltrate and cardiomegaly as initial study. Will give antibiotics as above for Severe Sepsis. Respiratory support as follows: * On admission required non-rebreather at 15L and was on BiPap. Transitioned to OH on 08/23 and is tolerating well. DNR CHANGED TO FULL CODE 08/22/2017 after conversation with patient, he states he would want intubation if indicated. ABG improved. * Goal is to see resolution of bacteremia on culture, wean to NC/room air as tolerated, with goal O2 sat >92% with no respiratory distress * Duonebs every 6 hours scheduled * Albuterol nebs q2 hr PRN wheezing or SOB * Continue Pulmicort, Singular * Respiratory toilet PRN * Will obtain repeat CXR and/or chest CT if indicated by worsening respiratory status or worsening sepsis * Will need chest x-ray as outpatient after discharge to confirm resolution of pneumonia * Rapid flu negative on admission. * Sputum culture showing MRSA. Urine Legionella and Pneumococcal Ag negative. * Antibiotics: status-post IV Vancomycin 1g and Cefepime 2g x 1 in ED. Given indwelling catheter, urinary and respiratory sources of infection, will continue IV Vancomycin (with pharmacy consult) * Vancomycin (08/21-current). Target trough 1520 * Rocephin 2 g IV daily (08/23 - current) * Cefepime (08/21-08/23) * Azithromycin 500mg IV daily (08/21-08/22) * Recheck CBC and BMP daily. WBC mildly elevated at 14.4 on 08/26, downtrending on 08/27 * Repeat CXR 08/26 showed stable disease (2) Left facial swelling ICD Codes: R22.0 - Localized swelling, mass and lump, head Status: Acute Plan: Left-sided facial swelling/mass noted on 08/25 in the preauricular region 3 x 2 cm mobile mass is tender and erythematous, nonfluctuant Slightly more swollen on 08/26 compared to 08/25, but stable on 08/27 Ultrasound is negative for any abscess, LAD or other signs of infection, thus suspect this is related to contact irritation related to CPAP machine Will consider CT scan (head or neck pending radiology recommendations) if symptoms worsen and abscess is suspected (3) UTI (urinary tract infection) ICD Codes: N39.0 - Urinary tract infection, site not specified Status: Acute Plan: History of MDRO UTI in 2013 and 2011. Has had chronic indwelling urostomy for 7-8 years related to history of bladder cancer which increases risk of severe infection. Urine was dark brown at time of admission, reportedly cloudy prior to admission. UA showing eder color, large LE, 77 WBC, 7 RBCs but urine culture negative. * Repeat UA on 08/22 showing trace leukocyte esterase, 14 WBC, 8 RBC and yellow color - improved from UA on admission * Antibiotics as described above * Strict Is/Os q shift * Urine culture negative from 08/21/2017 (final) and 08/23/2017 (4) Bacteremia due to Gram-positive bacteria ICD Codes: R78.81 - Bacteremia Status: Acute Plan: Sepsis on time of admission suspected due to bacteremia with pneumonia. Will continue to manage as above. Blood culture history: * 08/21: MRSA 4/4 bottles. Sensitivities showing resistance to Ancef, Rocephin, Erythromycin, Oxacillin, Emi * 08/22: MRSA 1/2 bottles. * 08/25: No growth 1 day * 08/26: Pending Sputum culture 08/25: MRSA Hospital Course: On admission, patient met severe sepsis criteria based on fever, RR and HR elevations, lactic acid >2, WBC 16K on admission. UA evident of infection, and AP CXR suggestive of RLL infiltrate. Suspected sources of UTI and PNA with management as described above. (5) Left arm swelling ICD Codes: M79.89 - Other specified soft tissue disorders Status: Resolved Plan: Patient noted to have left forearm/hand swelling and pain on 08/22. Patient does complain of pain and loss of function following his stroke in May 2017 IV site does not appear to be infiltrated Ultrasound 08/23 showed diffuse soft tissue swelling with no evidence of thrombus Occupational therapy consultation, recommended OT in rehab Patient reporting improvement in pain and is noted to be using his left hand more readily on 08/24 (6) Troponin level elevated ICD Codes: R74.8 - Abnormal levels of other serum enzymes Status: Acute Plan: Troponin level is 0.05 on admission. No chest pain. EKG showing sinus rhythm, rate ~100. No signs of ST changes, T wave changes, or heart block. Troponin elevation possibly related to sepsis, SERGIO. Takes daily aspirin, will continue. * BNP normal * 2D echo showing normal ejection fraction, moderate concentric LVH (7) Thrombocytopenia ICD Codes: D69.6 - Thrombocytopenia, unspecified Status: Resolved Plan: Normalized on labs 08/25 to 173. Will monitor, continue SCDs for today. Platelets continued to increase to 202 on 08/26 Will start heparin on 08/26 for DVT prophylaxis Hospital Course: 90 K on admission, improved to 140 on 08/24, will monitor platelet count and held prophylactic anticoagulation until 08/26. Did receive one dose of Lovenox on 08/21/2017 after labs were drawn that day. (8) Altered mental status ICD Codes: R41.82 - Altered mental status Status: Resolved Plan: Altered mental status noted on admission documentation, however, no AMS noted on exam. Mental status fluctuates; did have worsening AMS overnight on 05/2018 but resolved, possibly this was related to hypoxia. Does have recent history of CVA and was at SNF for rehab at time of this admission. * Monitor via neuro checks q 4 hr * CT head obtained 08/21/2017 showing chronic age-related changes with no acute bleed. No signs of infection or ischemia. * Hold home Seroquel, Continue Namenda 10mg PO BID and Aricept 10 mg PO hs (9) Hypothyroidism ICD Codes: E03.9 - Hypothyroidism, unspecified Status: Chronic Plan: On Synthroid 50micrograms daily, continue. TSH 1.63 (10) Paroxysmal atrial fibrillation ICD Codes: I48.0 - Paroxysmal atrial fibrillation Status: Chronic Plan: Per custodial records. Rate controlled at this time. He was monitored on telemetry during ICU stay. Patient is not on anticoagulation, is on antiplatelet 81 mg aspirin. Patient is asymptomatic, will monitor for symptoms He does of note have recent CVA in May 2017 for which he received TPA and thereafter continued aspirin 81 mg daily (11) Fluids/Electrolytes/Nutrition/Prophylaxis Status: Acute Plan: Fluids: No IV fluids at this time Electrolytes: monitor and replete as needed Nutrition: Heart healthy diet DVT Prophylaxis: Early ambulation. Starting heparin TID on 08/26, SCDs GI Prophylaxis: Protonix 20mg IV daily PRN anti-HTN: Hold home antihypertensive for now given hypotension, will monitor Problem Qualifiers (1) PNA (pneumonia): Qualified Codes: J18.1 - Lobar pneumonia, unspecified organism (2) UTI (urinary tract infection): Qualified Codes: N39.0 - Urinary tract infection, site not specified; R31.9 - Hematuria, unspecified (3) Hypothyroidism: Qualified Codes: E03.9 - Hypothyroidism, unspecified Stacy Sampson MD Aug 27, 2017 07:42
[2017-08-27] MEDS: DOCUSATE SODIUM 50 MG/SENNA 8.6 MG TAB PO SCH ×2 (09:00→21:00)
[2017-08-27] MEDS: SODIUM CHLORIDE 0.9% FLUSH 10 ML FLUSH IV FLUSH SCH ×2 (09:20→21:00)
[2017-08-27] MEDS: MEMANTINE HCL 10 MG TAB PO SCH ×2 (09:20→21:00)
[2017-08-27] MEDS: PANTOPRAZOLE SOD 20 MG DELAYED RELEASE TAB PO SCH (09:20)
[2017-08-27] MEDS: ASPIRIN EC 81 MG TABEC PO SCH (09:20)
[2017-08-27 09:50] LABS: AUTOMATED NEUTROPHIL # 8.9 TH/MM3 (1.8-7.7); BASOPHIL # 0.2 TH/MM3 (0-0.2); BASOPHIL % 1.3 % (0.0-2.0); EOSINOPHIL # 0.3 TH/MM3 (0-0.4); EOSINOPHIL % 2.5 % (0.0-4.0); HEMATOCRIT 34.9 % (39.0-51.0); HEMOGLOBIN 11.2 GM/DL (13.0-17.0); LYMPH % 12.2 % (9.0-44.0); LYMPHOCYTE # 1.4 TH/MM3 (1.0-4.8); MEAN CELL VOLUME 93.1 FL (80.0-100.0); MEAN CORPUSCULAR HEMOGLOBIN 29.9 PG (27.0-34.0); MEAN CORPUSCULAR HGB CONC 32.1 % (32.0-36.0); MEAN PLATELET VOLUME 8.9 FL (7.0-11.0); MONO % 8.3 % (0.0-8.0); NEUT % 75.7 % (16.0-70.0); PLATELET COUNT 218 TH/MM3 (150-450); RED BLOOD COUNT 3.75 MIL/MM3 (4.50-5.90); RED CELL DISTRIBUTION WIDTH 15.3 % (11.6-17.2); WHITE BLOOD COUNT 11.8 TH/MM3 (4.0-11.0)
[2017-08-27 10:14] LABS: BICARBONATE 28.5 MEQ/L (21.0-32.0); CALCIUM 8.5 MG/DL (8.5-10.1); CREATININE 0.64 MG/DL (0.60-1.30)
--- NOTE | 2017-08-27 12:18 | HHI.IDPN ---
Note Infectious Disease Note ID coverage. Notes reviewed. 77 y/o WM with past medical history of hypertension, ischemic stroke in May [id number] for which he received TPA. His past medical history is also significant for paroxysmal atrial fibrillation, Obstructive sleep apnea, HTN, Obesity. His past medical history is also significant for prostate cancer, status post prostatectomy, bladder cancer status post cystectomy with ileal conduit. Patient is a resident of [facility] and has a [facility] DNR. With this background, patient presented to [facility] emergency department via [facility] from [facility] complaining of shortness of breath. Upon presentation, patient was febrile to 101.1 with white blood cell count of 16. Chest x-ray demonstrated left lower lobe consolidation. Influenza screen was negative. Patient received broad-spectrum antibiotics including vancomycin, cefepime, azithromycin. He had hypercapnic respiratory failure with pH of 7.29/ PaCO2 52/PA O2 of 237/bicarbonate 24. He was placed on BiPAP 16/8 35%. Blood cultures done on admission are positive for MRSA and ID consulted for Sepsis and MRSA bacteremia. Patient feels okay. He is on room air. Feels a little short of breath. Occurs with activity when he changes position in bed. No fever No rash No diarrhea One blood culture from 08/22 has MRSA sputum culture from 08/25 has MRSA. Antibiotics Vanco IV Ceftriaxone IV Current Medications Medications (Trade) Dose Ordered Sig/Rodolfo Route PRN Reason Start Time Stop Time Status Last Admin Dose Admin Sodium Chloride (NS Flush) 2 ml UNSCH PRN IV FLUSH FLUSH AFTER USING IV ACCESS 08/21/17 10:00 08/26/17 23:15 Sodium Chloride (NS Flush) 2 ml BID IV FLUSH 08/21/17 21:00 08/27/17 09:20 Pharmacy Profile Note 0 ml @ 0 mls/hr UNSCH OTHER 08/21/17 10:30 Albuterol Sulfate (Albuterol Neb) 2.5 mg Q2HR NEB PRN INH SHORTNESS OF BREATH 08/21/17 12:00 08/25/17 20:11 Aspirin (Ecotrin Ec) 81 mg DAILY PO 08/21/17 12:00 08/27/17 09:20 Atorvastatin Calcium (Lipitor) 40 mg HS PO 08/21/17 21:00 08/26/17 23:15 Levothyroxine Sodium (Synthroid) 50 mcg DAILY@0600 PO 08/22/17 06:00 08/27/17 05:23 Lisinopril (Prinivil) 10 mg DAILY PO 08/22/17 09:00 Future Hold Lorazepam (Ativan) 0.5 mg Q8H PRN PO ANXIETY 08/21/17 11:00 Future Hold Montelukast Sodium (Singulair) 10 mg HS PO 08/21/17 21:00 08/26/17 23:15 Quetiapine Fumarate (SEROquel) 25 mg BID PO 08/21/17 21:00 Future Hold 08/21/17 21:51 Pantoprazole Sodium (Protonix) 20 mg DAILY PO 08/22/17 09:00 08/27/17 09:20 Senna/Docusate Sodium (Jeimy-Colace) 1 tab BID PO 08/21/17 21:00 08/26/17 23:14 Sennosides (Senokot) 17.2 mg Q12H PRN PO Moderate constipation 08/21/17 12:00 08/23/17 08:48 Bisacodyl (Dulcolax Supp) 10 mg DAILY PRN RECTAL SEVERE CONSITIPATION 08/21/17 11:00 Lactulose (Lactulose Liq) 30 ml DAILY PRN PO SEVERE CONSITIPATION 08/21/17 11:00 08/23/17 08:48 Acetaminophen (Tylenol) 650 mg Q4H PRN PO TEMP > 100.4 08/21/17 23:00 Ondansetron HCl (Zofran Inj) 4 mg Q6H PRN IVP NAUSEA OR VOMITING 08/21/17 11:00 Naloxone HCl (Narcan Inj) 0.4 mg UNSCH PRN IV PUSH SEE LABEL COMMENTS 08/21/17 11:00 Memantine (Namenda) 10 mg BID PO 08/21/17 21:00 08/27/17 09:20 Donepezil HCl (Aricept) 10 mg HS PO 08/21/17 21:00 08/26/17 23:14 Miscellaneous Information Patient in critical care unit? Ass... [id number] .XX 08/22/17 03:15 Ceftriaxone Sodium 2000 mg/ Sodium Chloride 100 ml @ 200 mls/hr Q24H IV 08/23/17 13:00 08/26/17 18:31 Albuterol/ Ipratropium (Duoneb Neb) 1 ampule Q6HR NEB INH 08/24/17 16:00 08/27/17 08:06 Miscellaneous Information SPECIFIC LAB TO BE ... ONCE ONCE .XX 08/27/17 17:45 08/27/17 17:46 Vancomycin HCl 2000 mg/Sodium Chloride 520 ml @ 257.5 mls/ hr Q18H IV 08/25/17 12:00 08/26/17 23:18 Budesonide/ Formoterol Fumarate (Symbicort 160-4.5 Mcg Inh) 2 puff Q12HR INH 08/26/17 09:00 08/26/17 23:16 Heparin Sodium (Porcine) (Heparin Inj) 5,000 units Q8H SQ 08/26/17 13:00 08/27/17 05:23 Past Medical History Ischemic stroke with residual L hemiparesis. 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 Dementia Chronic bronchitis PTSD Major depressive disorder Morbid Obesity Hypothyroidism Past Surgical History Partial colectomy/proctectomy Prostatectomy Hernia repair Cystectomy with ileal conduit Allergies: Coded Allergies: penicillin G (Unverified Allergy, Severe, as a child, 01/24/17) Objective: Vital Signs Date Time Temp Pulse Resp B/P (MAP) Pulse Ox O2 Delivery O2 Flow Rate FiO2 08/27/17 08:07 93 Nasal Cannula 4.00 08/27/17 04:00 83 08/27/17 04:00 98.0 83 41 116/55 (75) 94 08/27/17 00:00 90 08/27/17 00:00 98.4 90 30 130/58 (82) 93 08/26/17 20:17 96 Nasal Cannula 4.00 08/26/17 20:00 80 08/26/17 20:00 98.2 84 33 93/76 (82) 97 08/26/17 16:00 81 08/26/17 16:00 97.9 81 25 119/61 (80) 94 Laboratory Tests Test 08/26/17 04:57 08/27/17 08:19 White Blood Count 14.4 TH/MM3 11.8 TH/MM3 Red Blood Count 3.64 MIL/MM3 3.75 MIL/MM3 Hemoglobin 11.1 GM/DL 11.2 GM/DL Hematocrit 33.7 % 34.9 % Mean Corpuscular Volume 92.6 FL 93.1 FL Mean Corpuscular Hemoglobin 30.6 PG 29.9 PG Mean Corpuscular Hemoglobin Concent 33.0 % 32.1 % Red Cell Distribution Width 14.8 % 15.3 % Platelet Count 202 TH/MM3 218 TH/MM3 Mean Platelet Volume 8.8 FL 8.9 FL CBC Comment AUTO DIFF DIFF FINAL Differential Total Cells Counted 100 Neutrophils % (Manual) 74 % Band Neutrophils % 4 % Lymphocytes % 7 % Monocytes % 6 % Eosinophils % 7 % Neutrophils # (Manual) 11.5 TH/MM3 Metamyelocytes 1 % Myelocytes 1 % Differential Comment FINAL DIFF MANUAL Platelet Estimate NORMAL Platelet Morphology Comment NORMAL Red Cell Morphology Comment NORMAL Neutrophils (%) (Auto) 75.7 % Lymphocytes (%) (Auto) 12.2 % Monocytes (%) (Auto) 8.3 % Eosinophils (%) (Auto) 2.5 % Basophils (%) (Auto) 1.3 % Neutrophils # (Auto) 8.9 TH/MM3 Lymphocytes # (Auto) 1.4 TH/MM3 Monocytes # (Auto) 1.0 TH/MM3 Eosinophils # (Auto) 0.3 TH/MM3 Basophils # (Auto) 0.2 TH/MM3 Laboratory Tests Test 08/26/17 04:57 08/27/17 08:19 Blood Urea Nitrogen 10 MG/DL 12 MG/DL Creatinine 0.63 MG/DL 0.64 MG/DL Random Glucose 117 MG/DL 112 MG/DL Calcium Level 8.7 MG/DL 8.5 MG/DL Sodium Level 140 MEQ/L 140 MEQ/L Potassium Level 3.7 MEQ/L 3.9 MEQ/L Chloride Level 104 MEQ/L 104 MEQ/L Carbon Dioxide Level 28.5 MEQ/L 28.5 MEQ/L Anion Gap 8 MEQ/L 8 MEQ/L Estimat Glomerular Filtration Rate 124 ML/MIN 122 ML/MIN Microbiology Date/Time Source Procedure Growth Status 08/26/17 04:57 Blood Peripheral Aerobic Blood Culture - Preliminary NO GROWTH IN 1 DAY Resulted 08/26/17 04:57 Blood Peripheral Anaerobic Blood Culture - Preliminary NO GROWTH IN 1 DAY Resulted 08/25/17 11:52 Blood Peripheral Aerobic Blood Culture - Preliminary NO GROWTH IN 2 DAYS Resulted 08/25/17 11:52 Blood Peripheral Anaerobic Blood Culture - Preliminary NO GROWTH IN 2 DAYS Resulted 08/25/17 11:34 Blood Peripheral Aerobic Blood Culture - Preliminary NO GROWTH IN 2 DAYS Resulted 08/25/17 11:34 Blood Peripheral Anaerobic Blood Culture - Preliminary NO GROWTH IN 2 DAYS Resulted 08/25/17 11:27 Sputum Expectorated Sputum Gram Stain - Final Complete 08/25/17 11:27 Sputum Culture - Final S. Aureus Mrsa Complete Imaging Chest X-Ray 08/26/17 0000 Signed Impressions: Service Date/Time: Saturday, August 26, 2017 12:09 - CONCLUSION: 1. Cardiomegaly with small left basilar effusion and atelectasis. Stable compared to previous exam. Wilfredo Dukes MD Chest X-Ray 08/22/17 0600 Signed Impressions: Service Date/Time: Tuesday, August 22, 2017 03:48 - CONCLUSION: Unchanged left lower lobe infiltrate and tiny effusion. Cardiomegaly. Bryan Hernandez Jr., MD Upper Extremity Ultrasound 08/22/17 0000 Signed Impressions: Service Date/Time: Tuesday, August 22, 2017 09:18 - CONCLUSION: 1. No sonographic evidence for upper extremity DVT. Yazan Deleon MD Renal Ultrasound 08/22/17 0000 Signed Impressions: Service Date/Time: Tuesday, August 22, 2017 08:32 - CONCLUSION: 1. Nonobstructing renal calcifications. No hydronephrosis. Bladder removed. Wily Dunham MD Lower Extremity Ultrasound 08/22/17 0000 Signed Impressions: Service Date/Time: Tuesday, August 22, 2017 08:18 - CONCLUSION: Negative for DVT. Wily Dunham MD Head CT 08/21/17 0000 Signed Impressions: Service Date/Time: Monday, August 21, 2017 23:15 - CONCLUSION: 1. No acute intracranial abnormality. 2. Atrophy. 3. Encephalomalacia of the right parietal lobe suggesting prior infarction. Bryan Hernandez Jr., MD Physical Exam GENERAL: Alert and oriented, no acute distress. HEENT: Pupils reactive to light. Extraocular movements intact. No icterus. NECK: Supple without adenopathy. Obese. LUNGS: Basilar rhonchi bilateral. Decreased breath sounds. HEART: S1 and S2. No murmurs rubs or gallops. ABDOMEN: Bowel sounds present, soft, nontender. EXTREMITIES: No clubbing cyanosis or edema. SKIN: No rash. NEUROLOGIC: Nonfocal. PSYCH: Calm and cooperative. Assessment & Plan Severe Sepsis improved. MRSA bacteremia - has new (+) BC MRSA pneumonia. Acute hypoxic respiratory failure on BiPAP Acute renal failure on admission: sepsis, prerenal. Bladder and Prostate cancer s/p prostatectomy, cystectomy and ileal conduit. Morbid Obesity BMI 49 kg/m2 Recs: Stop ceftriaxone IV Continue Vanco IV (target 15-20) Monitor progress Potential discharge on oral zyvox with levaquin depending on clinical response and results of work-up Rick Weber MD Aug 27, 2017 12:18
[2017-08-27] MEDS ORDERED: PHARMACY ORDERED LAB ONE (17:45)
[2017-08-27] MEDS: VANCOMYCIN INJ 2,000 MG in SODIUM CHLORID 0.9% 500 ML INJ 500 ML IV SCH (19:42)
[2017-08-27] MEDS: MONTELUKAST SODIUM 10 MG TAB PO SCH (21:00)
[2017-08-27] MEDS: ATORVASTATIN 40 MG TAB PO SCH (21:00)
[2017-08-27] MEDS: BUDESONIDE-FORMOTEROL 160/4.5 MCG INHALER INH SCH (21:00)
[2017-08-27] MEDS: DONEPEZIL HCL 5 MG TAB PO SCH (21:00)
[2017-08-28] VITALS: BP 126/58; PULSE 86; TEMP 98; O2SAT 93
[2017-08-28] MEDS: RESP: ALBUTEROL 2.5 MG/IPRATROPIUM 0.5 MG NEB (SCH) INH ×2 (03:55→10:18)
[2017-08-28 04:00] VITALS: BP 111/55; PULSE 80; PULSE 87; RESP 20; TEMP 98.1; O2SAT 94
[2017-08-28] MEDS: HEPARIN SODIUM - SQ 10,000 UNITS/ML VIAL SQ SCH ×2 (05:00→12:17)
[2017-08-28] MEDS: LEVOTHYROXINE SODIUM 50 MCG TAB PO SCH (06:00)
[2017-08-28 07:58] LABS: AUTOMATED NEUTROPHIL # 8.3 TH/MM3 (1.8-7.7); BASOPHIL # 0.1 TH/MM3 (0-0.2); BASOPHIL % 1.1 % (0.0-2.0); EOSINOPHIL # 0.3 TH/MM3 (0-0.4); EOSINOPHIL % 2.5 % (0.0-4.0); HEMATOCRIT 34.4 % (39.0-51.0); HEMOGLOBIN 11.4 GM/DL (13.0-17.0); LYMPH % 11.9 % (9.0-44.0); LYMPHOCYTE # 1.3 TH/MM3 (1.0-4.8); MEAN CELL VOLUME 92.3 FL (80.0-100.0); MEAN CORPUSCULAR HEMOGLOBIN 30.6 PG (27.0-34.0); MEAN CORPUSCULAR HGB CONC 33.2 % (32.0-36.0); MEAN PLATELET VOLUME 8.8 FL (7.0-11.0); MONO % 7.1 % (0.0-8.0); MONOCYTE # 0.8 TH/MM3 (0-0.9); NEUT % 77.4 % (16.0-70.0); PLATELET COUNT 221 TH/MM3 (150-450); RED BLOOD COUNT 3.73 MIL/MM3 (4.50-5.90); RED CELL DISTRIBUTION WIDTH 15.4 % (11.6-17.2); WHITE BLOOD COUNT 10.7 TH/MM3 (4.0-11.0)
[2017-08-28 08:00] VITALS: BP 131/62; PULSE 80; RESP 28; TEMP 97.3; O2SAT 94
[2017-08-28 08:26] LABS: BICARBONATE 29.7 MEQ/L (21.0-32.0); CALCIUM 8.5 MG/DL (8.5-10.1); CREATININE 0.68 MG/DL (0.60-1.30)
[2017-08-28] MEDS: MEMANTINE HCL 10 MG TAB PO SCH (09:27)
[2017-08-28] MEDS: DOCUSATE SODIUM 50 MG/SENNA 8.6 MG TAB PO SCH (09:27)
[2017-08-28] MEDS: PANTOPRAZOLE SOD 20 MG DELAYED RELEASE TAB PO SCH (09:27)
[2017-08-28] MEDS: SODIUM CHLORIDE 0.9% FLUSH 10 ML FLUSH IV FLUSH SCH (09:28)
[2017-08-28] MEDS: ASPIRIN EC 81 MG TABEC PO SCH (09:28)
[2017-08-28] MEDS: BUDESONIDE-FORMOTEROL 160/4.5 MCG INHALER INH SCH (09:28)
--- NOTE | 2017-08-28 09:54 | HHI.DCPOC ---
Discharge Care Plan Diagnosis: (1) Severe sepsis (2) PNA (pneumonia) (3) Bacteremia due to Gram-positive bacteria Goals to Promote Your Health * To prevent worsening of your condition and complications * To maintain your health at the optimal level Directions to Meet Your Goals Take your medications as prescribed Follow your dietary instruction Follow activity as directed Keep your appointments as scheduled Take your immunizations and boosters as scheduled If your symptoms worsen call your PCP, if no PCP go to Urgent Care Center or Emergency Room Smoking is Dangerous to Your Health. Avoid second hand smoke Call the 24-hour hour crisis hotline for domestic abuse at Stacy Sampson MD Aug 28, 2017 09:54
[2017-08-28] MEDS ORDERED: POLY17S PO (10:07)
[2017-08-28] MEDS ORDERED: Albuterol-Ipratropium Neb INH (10:07)
[2017-08-28] MEDS ORDERED: BUDE0.5S NEB (10:07)
[2017-08-28] MEDS ORDERED: ARIC5TAB6 PO (10:07)
[2017-08-28] MEDS ORDERED: LISI10TA3 PO (10:07)
[2017-08-28] MEDS ORDERED: MAALSUS17 PO (10:07)
[2017-08-28] MEDS ORDERED: MILKSUS PO (10:07)
[2017-08-28] MEDS ORDERED: LEVO50TA4 PO (10:07)
[2017-08-28] MEDS ORDERED: MONT10TA2 PO (10:07)
[2017-08-28] MEDS ORDERED: OMEP20TA93 PO (10:07)
[2017-08-28] MEDS ORDERED: ATOR40TA16 PO (10:07)
[2017-08-28] MEDS ORDERED: Albuterol Neb INH (10:07)
[2017-08-28] MEDS ORDERED: CLAR10CA3 PO (10:07)
[2017-08-28] MEDS ORDERED: ACET325T15 PO (10:07)
[2017-08-28] MEDS ORDERED: LOPE-1 PO (10:07)
[2017-08-28] MEDS ORDERED: POLY120S EACH EYE (10:07)
[2017-08-28] MEDS ORDERED: MEMA1CAP2 PO (10:07)
[2017-08-28] MEDS ORDERED: ECASA81 PO (10:07)
[2017-08-28] MEDS ORDERED: QUET1TAB7 PO (10:07)
[2017-08-28] MEDS ORDERED: NEBULIZER1 MI1 (10:08)
--- NOTE | 2017-08-28 10:13 | HHI.FPPN ---
Subjective Remarks Patient was seen and examined this morning. No acute overnight events. No fevers , chills, n/v. Feels back at his baseline, wants to go to [facility]. (Stacy Sampson MD) Objective Vitals Vital Signs Date Time Temp Pulse Resp B/P (MAP) Pulse Ox O2 Delivery O2 Flow Rate FiO2 08/28/17 04:00 98.1 80 20 111/55 (73) 94 08/28/17 04:00 87 08/28/17 00:00 86 08/28/17 00:00 98.0 86 126/58 (80) 93 08/27/17 20:00 98.7 82 20 93/61 (72) 95 08/27/17 20:00 82 08/27/17 19:41 94 Nasal Cannula 4.00 08/27/17 16:00 98.6 84 27 104/57 (73) 96 08/27/17 16:00 84 08/27/17 12:00 98.5 82 26 121/81 (94) 93 08/27/17 12:00 82 I/O 08/27/17 08/27/17 08/27/17 08/28/17 08/28/17 08/28/17 07:00 15:00 23:00 07:00 15:00 23:00 Intake Total 350 ml Output Total 750 ml 875 ml 550 ml Balance -400 ml -875 ml -550 ml Intake Oral 350 ml Output Urine Total 875 ml 550 ml Stool Total 750 ml # Bowel Movements 1 1 (Stacy Sampson MD) Result Diagram: 08/28/17 0634 08/28/17 0634 Imaging Last Impressions Neck Ultrasound 08/26/17 0955 Signed Impressions: Service Date/Time: Saturday, August 26, 2017 22:06 - CONCLUSION: 1. No sonographic abnormalities identified in the left neck in the area of redness. Wily Dunham MD Chest X-Ray 08/26/17 0000 Signed Impressions: Service Date/Time: Saturday, August 26, 2017 12:09 - CONCLUSION: 1. Cardiomegaly with small left basilar effusion and atelectasis. Stable compared to previous exam. Wilfredo Dukes MD Upper Extremity Ultrasound 08/23/17 0000 Signed Impressions: Service Date/Time: Wednesday, August 23, 2017 12:43 - CONCLUSION: 1. Diffuse soft tissue swelling without sonographic evidence for focal drainable fluid collection at this time. Yazan Deleon MD Renal Ultrasound 08/22/17 0000 Signed Impressions: Service Date/Time: Tuesday, August 22, 2017 08:32 - CONCLUSION: 1. Nonobstructing renal calcifications. No hydronephrosis. Bladder removed. Wily Dunham MD Lower Extremity Ultrasound 08/22/17 0000 Signed Impressions: Service Date/Time: Tuesday, August 22, 2017 08:18 - CONCLUSION: Negative for DVT. Wily Dunham MD Head CT 08/21/17 0000 Signed Impressions: Service Date/Time: Monday, August 21, 2017 23:15 - CONCLUSION: 1. No acute intracranial abnormality. 2. Atrophy. 3. Encephalomalacia of the right parietal lobe suggesting prior infarction. Bryan Hernandez Jr., MD Objective Remarks GENERAL: This is a well-nourished, well-developed male patient. Obese and nasal cannula in place at 4L. In no respiratory distress speaking full sentences. NEURO: Awake, alert, oriented to person, place, and year. Moves all extremities. SKIN: Cool and dry. No ecchymoses. No signs of skin infections on visualized areas. HEAD: Atraumatic. Normocephalic. No temporal or scalp tenderness. Patient has left-sided facial swelling approximate 3x2 in the preauricular region, with no obvious mass present and mildly tender to palpation. No fluctuance. Erythema improved. TMs clear bilaterally, minor irritation of left ear canal. EYES: No scleral icterus. Mild physiologic drainage. ENT: Nose without bleeding or purulent drainage. MMM with no erythema, exudates , or petechiae noted in the throat. No evidence of parotitis on exam. NECK: Very large neck with redundant skin. No obvious JVD or lymphadenopathy. Nontender, no meningeal signs. CARDIOVASCULAR: Regular rate and rhythm without murmurs, gallops, or rubs. Heart sounds distant due to body habitus. RESPIRATORY: Distant breath sounds due to body habitus, but clear to auscultation. No wheezes. GASTROINTESTINAL: Abdomen obese. Non-tender. Ventral hernia noted on left lower abdomen. GENITOURO: Urostomy tube with site approximately mid-abdomen with ostomy bag in place draining clear fluid. MUSCULOSKELETAL: Left hand/forearm improved. Extremities without clubbing, cyanosis, or edema. No joint tenderness, effusion, or edema noted. No calf tenderness. Medications and IVs Inpatient Medications Acetaminophen (Tylenol) 650 mg Q4H PRN PO TEMP > 100.4; Start 08/21/17 at 23:00 Albuterol Sulfate (Albuterol Neb) 2.5 mg Q2HR NEB PRN INH SHORTNESS OF BREATH Last administered on 08/25/17at 20:11; Start 08/21/17 at 12:00 Albuterol/ Ipratropium (Duoneb Neb) 1 ampule Q6HR NEB INH Last administered on 08/28/17at 03:55; Start 08/24/17 at 16:00 Aspirin (Ecotrin Ec) 81 mg DAILY PO Last administered on 08/28/17at 09:28; Start 08/21/17 at 12:00 Atorvastatin Calcium (Lipitor) 40 mg HS PO Last administered on 08/27/17at 21:00 ; Start 08/21/17 at 21:00 Azithromycin 500 mg/Sodium Chloride 250 ml @ 250 mls/hr Q24H IV Last administered on 08/22/17at 14:47; Start 08/21/17 at 13:00; Stop 08/22/17 at 18:16 ; Status DC Bisacodyl (Dulcolax Supp) 10 mg DAILY PRN RECTAL SEVERE CONSITIPATION; Start at 11:00 Budesonide (Pulmicort Respule Neb) 0.5 mg Q12HR NEB NEB Last administered on at 20:11; Start 08/21/17 at 12:00; Stop 08/26/17 at 07:12; Status DC Budesonide/ Formoterol Fumarate (Symbicort 160-4.5 Mcg Inh) 2 puff Q12HR INH Last administered on 08/28/17at 09:28; Start 08/26/17 at 09:00 Cefepime HCl 2000 mg/Sodium Chloride 100 ml @ 200 mls/hr Q8H IV Last administered on 08/23/17at 07:46; Start 08/21/17 at 16:00; Stop 08/23/17 at 12:47 ; Status DC Ceftriaxone Sodium 2000 mg/ Sodium Chloride 100 ml @ 200 mls/hr Q24H IV Last administered on 08/26/17at 18:31; Start 08/23/17 at 13:00; Stop 08/27/17 at 12:19 ; Status DC Chlorhexidine Gluconate (Chlorhexidine 2% Cloth) 3 pack UNSCH PRN TOPICAL HYGIENIC CARE; Start 08/22/17 at 03:15; Stop 08/27/17 at 03:09; Status DC Donepezil HCl (Aricept) 10 mg HS PO Last administered on 08/27/17at 21:00; Start 08/21/17 at 21:00 Enoxaparin Sodium (Lovenox Inj) 40 mg Q24H SQ Last administered on 08/25/17at 12 :10; Start 08/21/17 at 12:00; Stop 08/26/17 at 15:11; Status DC Heparin Sodium (Porcine) (Heparin Inj) 5,000 units Q8H SQ Last administered on 08/28/17at 05:00; Start 08/26/17 at 13:00 Lactulose (Lactulose Liq) 30 ml DAILY PRN PO SEVERE CONSITIPATION Last administered on 08/23/17at 08:48; Start 08/21/17 at 11:00 Levothyroxine Sodium (Synthroid) 50 mcg DAILY@0600 PO Last administered on 08/28at 06:00; Start 08/22/17 at 06:00 Lisinopril (Prinivil) 10 mg DAILY PO ; Start 08/22/17 at 09:00; Status Future Hold Lorazepam (Ativan) 0.5 mg Q8H PRN PO ANXIETY; Start 08/21/17 at 11:00; Status Future Hold Magnesium Hydroxide (Milk Of Magnesia Liq) 30 ml Q12H PRN PO Mild constipation ; Start 08/21/17 at 11:00; Stop 08/22/17 at 03:04; Status DC Memantine (Namenda) 10 mg BID PO Last administered on 08/28/17at 09:27; Start at 21:00 Miscellaneous Information SPECIFIC LAB TO BE DRAWN:VANCO TROUGH DATE TO... ONCE ONCE .XX ; Start 08/24/17 at 19:45; Stop 08/24/17 at 19:46; Status DC Montelukast Sodium (Singulair) 10 mg HS PO Last administered on 08/27/17at 21:00 ; Start 08/21/17 at 21:00 Naloxone HCl (Narcan Inj) 0.4 mg UNSCH PRN IV PUSH SEE LABEL COMMENTS; Start at 11:00 Non-Formulary Medication 1 cap HS PO ; Start 08/21/17 at 21:00; Stop 08/21/17 at 21:00; Status DC Ondansetron HCl (Zofran Inj) 4 mg Q6H PRN IVP NAUSEA OR VOMITING; Start at 11:00 Pantoprazole Sodium (Protonix) 20 mg DAILY PO Last administered on 08/28/17at 09 :27; Start 08/22/17 at 09:00 Pharmacy Profile Note 0 ml @ 0 mls/hr UNSCH OTHER ; Start 08/21/17 at 10:30 Quetiapine Fumarate (SEROquel) 25 mg BID PO Last administered on 08/21/17at 21: 51; Start 08/21/17 at 21:00; Status Future Hold Senna/Docusate Sodium (Jeimy-Colace) 1 tab BID PO Last administered on at 09:27; Start 08/21/17 at 21:00 Sennosides (Senokot) 17.2 mg Q12H PRN PO Moderate constipation Last administered on 08/23/17at 08:48; Start 08/21/17 at 12:00 Sodium Chloride 1,000 ml @ 75 mls/hr [id number] IV Last administered on at 04:30; Start 08/21/17 at 10:16; Stop 08/23/17 at 13:31; Status DC Sodium Chloride (NS Flush) 2 ml BID IV FLUSH Last administered on 08/28/17at 09: 28; Start 08/21/17 at 21:00 Vancomycin HCl 1500 mg/Sodium Chloride 515 ml @ 257.5 mls/ hr Q18H IV Last administered on 08/24/17at 03:08; Start 08/22/17 at 14:00; Stop 08/25/17 at 08:07 ; Status DC Vancomycin HCl 2000 mg/Sodium Chloride 520 ml @ 257.5 mls/ hr Q18H IV Last administered on 08/27/17at 19:42; Start 08/25/17 at 12:00 (Stacy Sampson MD) A/P Assessment and Plan Patient is a 77-year-old male admitted with severe sepsis, UTI, and pneumonia. He was initially admitted to inpatient [facility] but given altered mental status, worsening respiratory distress, and hypotension overnight was [place] [facility] [place]. DNR revoked the morning of 08/22/2017, now FULL CODE. Patient's respiratory status is improving and was transitioned to nasal cannula on 08/23. Continues to clinically improve and will be transferred to a medicine/surgery floor on 08/24. Critical Care consulted 08/21/2017, signed off on 08/23 Infectious disease consultation on 08/22, appreciate recommendations [facility] Discharge Planning Discharge to SNF today 08/28, pending ID oral antibiotic recommendations. Still on IV antibiotics. Positive blood culture from 08/23 with no growth to date. Discussed with Dr. Ina Mascorro, seen with Dr. Dubose (Stacy Sampson MD) Attending Attestation Patient seen and examined. He is very pleased with his placement site. He thinks that the swelling anterior to the left ear is a little bit decreased, and I agree. Ultrasound report indicates neck, and I am not certain if this area was actually ultrasounded. Case reviewed and discussed with the resident team. Agree with plan of care as discussed with me and documented in the resident note. (Ina Mascorro MD) Problem List: (1) PNA (pneumonia) ICD Codes: J18.9 - Pneumonia, unspecified organism Status: Acute Plan: PNA improving. On nasal cannula at baseline, continue CPAP at night, scheduled Duonebs q6hr. Pulmonology consulted, appreciate recs, bedside PFTs were ordered Of note, sensitivities MRSA on blood culture 08/21 shows resistance to Ceftriaxone, sensitivity to Vancomycin Sputum culture showing MRSA Hope was for patient to be discharged on oral Zyvox with Levaquin, possibly on Infectious disease consulted, appreciate recommendations Of note leukocytosis resolved Hospital Course: Met sepsis criteria on admission suspected given symptoms, CXR findings, and sepsis. Repeat CXR overnight on 08/21/2017 showing similar LLL infiltrate and cardiomegaly as initial study. Will give antibiotics as above for Severe Sepsis. Respiratory support as follows: * On admission required non-rebreather at 15L and was on BiPap. Transitioned to NC on 08/23 and is tolerating well. DNR CHANGED TO FULL CODE 08/22/2017 after conversation with patient, he states he would want intubation if indicated. ABG improved. * Goal is to see resolution of bacteremia on culture, wean to NC/room air as tolerated, with goal O2 sat >92% with no respiratory distress * Duonebs every 6 hours scheduled * Albuterol nebs q2 hr PRN wheezing or SOB * Continue Pulmicort, Singular * Respiratory toilet PRN * Will obtain repeat CXR and/or chest CT if indicated by worsening respiratory status or worsening sepsis * Will need chest x-ray as outpatient after discharge to confirm resolution of pneumonia * Rapid flu negative on admission. * Sputum culture showing MRSA. Urine Legionella and Pneumococcal Ag negative. * Antibiotics: status-post IV Vancomycin 1g and Cefepime 2g x 1 in ED. Given indwelling catheter, urinary and respiratory sources of infection, will continue IV Vancomycin (with pharmacy consult) * Vancomycin (08/21-current). Target trough 1520 * Rocephin 2 g IV daily (08/23 - current) * Cefepime (08/21-08/23) * Azithromycin 500mg IV daily (08/21-08/22) * Recheck CBC and BMP daily. WBC mildly elevated at 14.4 on 08/26, downtrending * Repeat CXR 08/26 showed stable disease (2) Left facial swelling ICD Codes: R22.0 - Localized swelling, mass and lump, head Status: Acute Plan: Improved overall with as needed cold compress Was noted to have left-sided facial swelling/mass noted on 08/25 in the preauricular region 3 x 2 cm mobile mass is tender and erythematous, nonfluctuant Slightly more swollen on 08/26 compared to 08/25, but stable on 08/27 Ultrasound is negative for any abscess, LAD or other signs of infection, thus suspect this is related to contact irritation related to CPAP machine Will consider CT scan (head or neck pending radiology recommendations) if symptoms worsen and abscess is suspected (3) UTI (urinary tract infection) ICD Codes: N39.0 - Urinary tract infection, site not specified Status: Acute Plan: History of MDRO UTI in 2013 and 2011. Has had chronic indwelling urostomy for 7-8 years related to history of bladder cancer which increases risk of severe infection. Urine was dark brown at time of admission, reportedly cloudy prior to admission. UA showing eder color, large LE, 77 WBC, 7 RBCs but urine culture negative. * Repeat UA on 08/22 showing trace leukocyte esterase, 14 WBC, 8 RBC and yellow color - improved from UA on admission * Antibiotics as described above * Strict Is/Os q shift * Urine culture negative from 08/21/2017 (final) and 08/23/2017 (4) Bacteremia due to Gram-positive bacteria ICD Codes: R78.81 - Bacteremia Status: Resolved Plan: Sepsis on time of admission suspected due to bacteremia with pneumonia. Will continue to manage as above. Blood culture history: * 08/21: MRSA 4/4 bottles. Sensitivities showing resistance to Ancef, Rocephin, Erythromycin, Oxacillin, Emi * 08/22: MRSA 1/2 bottles. * 08/25: No growth 3 day * 08/26: No growth 2 days Sputum culture 08/25: MRSA Hospital Course: On admission, patient met severe sepsis criteria based on fever, RR and HR elevations, lactic acid >2, WBC 16K on admission. UA evident of infection, and AP CXR suggestive of RLL infiltrate. Suspected sources of UTI and PNA with management as described above. (5) Left arm swelling ICD Codes: M79.89 - Other specified soft tissue disorders Status: Resolved Plan: Patient noted to have left forearm/hand swelling and pain on 08/22. Patient does complain of pain and loss of function following his stroke in May 2017 IV site does not appear to be infiltrated Ultrasound 08/23 showed diffuse soft tissue swelling with no evidence of thrombus Occupational therapy consultation, recommended OT in rehab Patient reporting improvement in pain and is noted to be using his left hand more readily on 08/24 (6) Troponin level elevated ICD Codes: R74.8 - Abnormal levels of other serum enzymes Status: Acute Plan: Troponin level is 0.05 on admission. No chest pain. EKG showing sinus rhythm, rate ~100. No signs of ST changes, T wave changes, or heart block. Troponin elevation possibly related to sepsis, SERGIO. Takes daily aspirin, will continue. * BNP normal * 2D echo showing normal ejection fraction, moderate concentric LVH (7) Thrombocytopenia ICD Codes: D69.6 - Thrombocytopenia, unspecified Status: Resolved Plan: Normalized on labs 3/16 to 173. Will monitor, continue SCDs for today. Platelets continued to increase to 202 on 08/26 Will start heparin on 08/26 for DVT prophylaxis Hospital Course: 90 K on admission, improved to 140 on 08/24, will monitor platelet count and held prophylactic anticoagulation until 08/26. Did receive one dose of Lovenox on 08/21/2017 after labs were drawn that day. (8) Altered mental status ICD Codes: R41.82 - Altered mental status Status: Resolved Plan: Altered mental status noted on admission documentation, however, no AMS noted on exam. Mental status fluctuates; did have worsening AMS overnight on 05/2018 but resolved, possibly this was related to hypoxia. Does have recent history of CVA and was at SNF for rehab at time of this admission. * Monitor via neuro checks q 4 hr * CT head obtained 08/21/2017 showing chronic age-related changes with no acute bleed. No signs of infection or ischemia. * Hold home Seroquel, Continue Namenda 10mg PO BID and Aricept 10 mg PO hs (9) Hypothyroidism ICD Codes: E03.9 - Hypothyroidism, unspecified Status: Chronic Plan: On Synthroid 50micrograms daily, continue. TSH 1.63 (10) Paroxysmal atrial fibrillation ICD Codes: I48.0 - Paroxysmal atrial fibrillation Status: Chronic Plan: Per prison records. Rate controlled at this time. He was monitored on telemetry during ICU stay. Patient is not on anticoagulation, is on antiplatelet 81 mg aspirin. Patient is asymptomatic, will monitor for symptoms He does of note have recent CVA in May 2017 for which he received TPA and thereafter continued aspirin 81 mg daily (11) Fluids/Electrolytes/Nutrition/Prophylaxis Status: Acute Plan: Fluids: No IV fluids at this time Electrolytes: monitor and replete as needed Nutrition: Heart healthy diet DVT Prophylaxis: Early ambulation. Starting heparin TID on 08/26, SCDs GI Prophylaxis: Protonix 20mg IV daily PRN anti-HTN: Hold home antihypertensive for now given hypotension, will monitor (Stacy Sampson MD) Problem Qualifiers (1) PNA (pneumonia): Qualified Codes: J18.1 - Lobar pneumonia, unspecified organism (2) UTI (urinary tract infection): Qualified Codes: N39.0 - Urinary tract infection, site not specified; R31.9 - Hematuria, unspecified (3) Hypothyroidism: Qualified Codes: E03.9 - Hypothyroidism, unspecified Stacy Sampson MD Aug 28, 2017 10:13 Ina Mascorro MD Aug 28, 2017 12:18
--- NOTE | 2017-08-28 11:43 | HHI.IDPN ---
Subjective Subjective Remarks ID COVERAGE is a 77 y/o WM with past medical history of hypertension, ischemic stroke in May 2305/2017 for which he received TPA. His past medical history is also significant for paroxysmal atrial fibrillation, Obstructive sleep apnea, HTN, Obesity. His past medical history is also significant for prostate cancer, status post prostatectomy, bladder cancer status post cystectomy with ileal conduit. Patient is a resident of [facility] and has a [facility] DNR. With this background, patient presented to [facility] emergency department via [facility] from [facility] complaining of shortness of breath. Upon presentation, patient was febrile to 101.1 with white blood cell count of 16. Chest x-ray demonstrated left lower lobe consolidation. Influenza screen was negative. Patient received broad-spectrum antibiotics including vancomycin, cefepime, azithromycin. He had hypercapnic respiratory failure with pH of 7.29/ PaCO2 52/PA O2 of 237/bicarbonate 24. He was placed on BiPAP 16/8 35%. His most recent ABG demonstrates pH of 7.34/PaCO2 46/PA O2 of 86. Critical care medicine is consulted to assist with management of severe sepsis and respiratory failure requiring BiPAP. Blood cultures done on admission are positive for MRSA and ID consulted for Sepsis and MRSA bacteremia. Notes reviewed States breathing is better On nasal O2. Not coughing much BC 08/21 and 08/22 with MRSA TTE noted No fever No rash No diarrhea Antibiotics Vanco IV Current Medications Medications (Trade) Dose Ordered Sig/Rodolfo Route Start Time Stop Time Status Last Admin (NS Flush) 2 ml UNSCH PRN IV FLUSH 08/21/17 10:00 08/26/17 23:15 (NS Flush) 2 ml BID IV FLUSH 08/21/17 21:00 08/28/17 09:28 Pharmacy Profile Note 0 ml @ 0 mls/hr UNSCH OTHER 08/21/17 10:30 (Albuterol Neb) 2.5 mg Q2HR NEB PRN INH 08/21/17 12:00 08/25/17 20:11 (Ecotrin Ec) 81 mg DAILY PO 08/21/17 12:00 08/28/17 09:28 (Lipitor) 40 mg HS PO 08/21/17 21:00 08/27/17 21:00 (Synthroid) 50 mcg DAILY@0600 PO 08/22/17 06:00 08/28/17 06:00 (Prinivil) 10 mg DAILY PO 08/22/17 09:00 Future Hold (Ativan) 0.5 mg Q8H PRN PO 08/21/17 11:00 Future Hold (Singulair) 10 mg HS PO 08/21/17 21:00 08/27/17 21:00 (SEROquel) 25 mg BID PO 08/21/17 21:00 Future Hold 08/21/17 21:51 (Protonix) 20 mg DAILY PO 08/22/17 09:00 08/28/17 09:27 (Jeimy-Colace) 1 tab BID PO 08/21/17 21:00 08/28/17 09:27 (Senokot) 17.2 mg Q12H PRN PO 08/21/17 12:00 08/23/17 08:48 (Dulcolax Supp) 10 mg DAILY PRN RECTAL 08/21/17 11:00 (Lactulose Liq) 30 ml DAILY PRN PO 08/21/17 11:00 08/23/17 08:48 (Tylenol) 650 mg Q4H PRN PO 08/21/17 23:00 (Zofran Inj) 4 mg Q6H PRN IVP 08/21/17 11:00 (Narcan Inj) 0.4 mg UNSCH PRN IV PUSH 08/21/17 11:00 (Namenda) 10 mg BID PO 08/21/17 21:00 08/28/17 09:27 (Aricept) 10 mg HS PO 08/21/17 21:00 08/27/17 21:00 Miscellaneous Information Patient in critical care unit? Ass... Q361D .XX 08/22/17 03:15 (Duoneb Neb) 1 ampule Q6HR NEB INH 08/24/17 16:00 08/28/17 10:18 Vancomycin HCl 2000 mg/Sodium Chloride 520 ml @ 257.5 mls/ hr Q18H IV 08/25/17 12:00 08/27/17 19:42 (Symbicort 160-4.5 Mcg Inh) 2 puff Q12HR INH 08/26/17 09:00 08/28/17 09:28 (Heparin Inj) 5,000 units Q8H SQ 08/26/17 13:00 08/28/17 05:00 Lines Line sites with no e.o infection Past Medical History Past Medical History Ischemic stroke with residual L hemiparesis. 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 Dementia Chronic bronchitis PTSD Major depressive disorder Morbid Obesity Hypothyroidism Past Surgical History Partial colectomy/proctectomy Prostatectomy Hernia repair Cystectomy with ileal conduit Allergies: Coded Allergies: penicillin G (Unverified Allergy, Severe, as a child, 01/24/17) Objective . Vital Signs Date Time Temp Pulse Resp B/P (MAP) Pulse Ox O2 Delivery O2 Flow Rate FiO2 08/28/17 04:00 98.1 80 20 111/55 (73) 94 08/28/17 04:00 87 08/28/17 00:00 86 08/28/17 00:00 98.0 86 126/58 (80) 93 08/27/17 20:00 98.7 82 20 93/61 (72) 95 08/27/17 20:00 82 08/27/17 19:41 94 Nasal Cannula 4.00 08/27/17 16:00 98.6 84 27 104/57 (73) 96 08/27/17 16:00 84 08/27/17 12:00 98.5 82 26 121/81 (94) 93 08/27/17 12:00 82 . Laboratory Tests Test 08/27/17 08:19 08/28/17 06:34 White Blood Count 11.8 TH/MM3 10.7 TH/MM3 Red Blood Count 3.75 MIL/MM3 3.73 MIL/MM3 Hemoglobin 11.2 GM/DL 11.4 GM/DL Hematocrit 34.9 % 34.4 % Mean Corpuscular Volume 93.1 FL 92.3 FL Mean Corpuscular Hemoglobin 29.9 PG 30.6 PG Mean Corpuscular Hemoglobin Concent 32.1 % 33.2 % Red Cell Distribution Width 15.3 % 15.4 % Platelet Count 218 TH/MM3 221 TH/MM3 Mean Platelet Volume 8.9 FL 8.8 FL Neutrophils (%) (Auto) 75.7 % 77.4 % Lymphocytes (%) (Auto) 12.2 % 11.9 % Monocytes (%) (Auto) 8.3 % 7.1 % Eosinophils (%) (Auto) 2.5 % 2.5 % Basophils (%) (Auto) 1.3 % 1.1 % Neutrophils # (Auto) 8.9 TH/MM3 8.3 TH/MM3 Lymphocytes # (Auto) 1.4 TH/MM3 1.3 TH/MM3 Monocytes # (Auto) 1.0 TH/MM3 0.8 TH/MM3 Eosinophils # (Auto) 0.3 TH/MM3 0.3 TH/MM3 Basophils # (Auto) 0.2 TH/MM3 0.1 TH/MM3 CBC Comment DIFF FINAL DIFF FINAL Differential Comment Laboratory Tests Test 08/27/17 08:19 08/28/17 06:34 Blood Urea Nitrogen 12 MG/DL 16 MG/DL Creatinine 0.64 MG/DL 0.68 MG/DL Random Glucose 112 MG/DL 102 MG/DL Calcium Level 8.5 MG/DL 8.5 MG/DL Sodium Level 140 MEQ/L 141 MEQ/L Potassium Level 3.9 MEQ/L 3.9 MEQ/L Chloride Level 104 MEQ/L 104 MEQ/L Carbon Dioxide Level 28.5 MEQ/L 29.7 MEQ/L Anion Gap 8 MEQ/L 7 MEQ/L Estimat Glomerular Filtration Rate 122 ML/MIN 113 ML/MIN Microbiology Date/Time Source Procedure Growth Status 08/26/17 04:57 Blood Peripheral Aerobic Blood Culture - Preliminary NO GROWTH IN 2 DAYS Resulted 08/26/17 04:57 Blood Peripheral Anaerobic Blood Culture - Preliminary NO GROWTH IN 2 DAYS Resulted 08/25/17 11:52 Blood Peripheral Aerobic Blood Culture - Preliminary NO GROWTH IN 3 DAYS Resulted 08/25/17 11:52 Blood Peripheral Anaerobic Blood Culture - Preliminary NO GROWTH IN 3 DAYS Resulted Imaging Last Impressions Chest X-Ray 08/22/17 0600 Signed Impressions: Service Date/Time: Tuesday, August 22, 2017 03:48 - CONCLUSION: Unchanged left lower lobe infiltrate and tiny effusion. Cardiomegaly. Bryan Hernandez Jr., MD Upper Extremity Ultrasound 08/22/17 0000 Signed Impressions: Service Date/Time: Tuesday, August 22, 2017 09:18 - CONCLUSION: 1. No sonographic evidence for upper extremity DVT. Yazan Deleon MD Renal Ultrasound 08/22/17 0000 Signed Impressions: Service Date/Time: Tuesday, August 22, 2017 08:32 - CONCLUSION: 1. Nonobstructing renal calcifications. No hydronephrosis. Bladder removed. Wily Dunham MD Lower Extremity Ultrasound 08/22/17 0000 Signed Impressions: Service Date/Time: Tuesday, August 22, 2017 08:18 - CONCLUSION: Negative for DVT. Wily Dunham MD Head CT 08/21/17 0000 Signed Impressions: Service Date/Time: Monday, August 21, 2017 23:15 - CONCLUSION: 1. No acute intracranial abnormality. 2. Atrophy. 3. Encephalomalacia of the right parietal lobe suggesting prior infarction. Bryan Hernandez Jr., MD Physical Exam GENERAL: Morbidly obese, awake and alert, NAD, on nasal O2 SKIN: Cool and dry. No embolic lesions. No generalized rash HEAD: Atraumatic. Normocephalic. No temporal or scalp tenderness. EYES: Pupils equal round and reactive. Extraocular motions intact. No scleral icterus. No injection or drainage. ENT: Nose without bleeding, purulent drainage or septal hematoma. Moist mucosa NECK: Large neck, Trachea midline. Supple, nontender, no meningeal signs. CARDIOVASCULAR: Regular rate and rhythm without murmurs, gallops, or rubs. RESPIRATORY: Clear to auscultation. Breath sounds equal bilaterally. No wheezes , rales, or rhonchi. Decreased BS at bases GASTROINTESTINAL: Abdomen soft, obese, non-tender, nondistended. Ostomy site ok. MUSCULOSKELETAL: Extremities without clubbing, cyanosis, or edema. No calf tenderness. Negative Homans sign bilaterally. NEUROLOGICAL: Grossly non-focal Psych cooperative IV line sites with no e.o infection. Assessment & Plan Remarks Severe Sepsis, better MRSA bacteremia - has new (+) BC MRSA pneumonia. Acute hypoxic respiratory failure on BiPAP, better Acute renal failure on admission: sepsis, prerenal. Bladder and Prostate cancer s/p prostatectomy, cystectomy and ileal conduit. Morbid Obesity BMI 49 kg/m2 Recs: Continue Vanco IV (target 15-20) Would give IV Vanco on D/C due to longer bacteremia Follow repeat BC Echo Follow cultures Monitor progress SNF being looked into PICC Veronica Javier MD Aug 28, 2017 11:43
[2017-08-28 12:00] VITALS: BP 128/86; PULSE 93; RESP 34; TEMP 98.2; O2SAT 95
[2017-08-28 12:16] VITALS: O2SAT 95
[2017-08-28] MEDS: VANCOMYCIN INJ 2,000 MG in SODIUM CHLORID 0.9% 500 ML INJ 500 ML IV SCH (12:17)
--- NOTE | 2017-08-28 15:20 | HHI.FF ---
Infusion Therapy Location of Infusion Therapy: [facility] Infusion Therapy Order Patient Information Patient Weight 163.7 kg Diagnosis: Diagnosis MRSA bacteremia, MRSA PNA Coded Allergies: penicillin G (Unverified Allergy, Severe, as a child, 01/24/17) Administer Medication Vancomycin Vanco 2 gm IV q18 Stop Treatment: Sep 17, 2017 Additional Information Venous access: PICC Line Additional Instructions [x] Peripheral flush and dressing changes per protocol [x] Implanted port and central turkish line attendant: * Implanted port: 10 ml Normal Saline followed by 5 ml Heparin 100 units/ml Heparin flush after each use and monthly to maintain. [] May leave port accessed during therapy. [] May leave peripheral site accessed for duration of therapy. [x] If patient has SOB or respiratory distress, check oxygen saturation. If less than 90% or clinical signs of respiratory distress, administer oxygen at 2 L/min. via nasal cannula and notify physician. [x] Anaphylaxis/Reaction orders: * Stop infusion. * Keep IV line open with saline flush. * Notify physician. * Monitor vital signs every 15 minutes until symptoms resolve. * Check Oxygen saturation; Oxygen at 2 L/min. via nasal cannula if less than 90% or clinical signs of respiratory distress. * Administer diphenhydramine (Benadryl) 25 mg IV STAT, (unless patient has received as pre-med). May repeat once, if necessary. * Solu-Cortef 250 mg IVP over 30-60 seconds, use 100 mg vials for each dissolution. * Epinephrine (1mg/1 ml) 0.3 mg subcutaneously or IVP now with any signs of respiratory distress. * Check with physician for new additional pre-med orders if patient is re- challenged or re-treated. [x] May remove PICC line when treatment complete, after confirming with Physician. [x] If the patient is admitted to the hospital, the ED, or transferred via [facility] , complete transfer form including medication reconciliation order sheet. Laboratory Tests Weekly Labs: CBC w/diff, Creatinine, Vancomycin Trough (Labs every Monday - please consult pharmacy to adjust Vanco dose, trough 15-20. Copy of labs to tx) Veronica Javier MD 19, 2018 15:20
[2017-08-28 16:00] VITALS: BP 118/56; PULSE 82; RESP 27; TEMP 97.7; O2SAT 96
--- NOTE | 2017-08-28 16:26 | HHI.PR ---
Addendum to Inpatient Note Addendum Reason: Additional Documentation Additional Information Received a call from the RN taking care patient that infectious disease physician has evaluated patient and deemed him to stable for discharge today. He will be discharged with IV vancomycin via infusion by PICC line which will be placed this afternoon. Discharge medications noted in his chart to include an order for vancomycin infusion per Dr. Javier, with noted stop date 09/17/17. He will get this infusion via PICC line at his SNF. He was discharged with all of his home medications as documented. He did have a baseline of O2 requirement at 4 L rate, to continue. We will add DuoNeb treatments to be used every 6 hours for now and as needed thereafter. at facility to evaluate. Patient will be discharged to [facility] after PICC line is placed. Discussed with Dr. Ina Mascorro who agreed with plan of discharge. Stacy Sampson MD Aug 28, 2017 16:26
[2017-08-28] MEDS: RESP: ALBUTEROL 2.5 MG/3 ML NEB (PRN) INH (17:29)
--- NOTE | 2017-08-28 17:32 | HHI.DS ---
Discharge Summary Admission Date Aug 21, 2017 at 10:06 Discharge Date: Aug 28, 2017 Admitting Diagnosis Severe Sepsis (PNA, UTI) (1) PNA (pneumonia) Diagnosis: Principal Plan: PNA improving. On nasal cannula at baseline, continue CPAP at night, scheduled Duonebs q6hr. Pulmonology consulted, appreciate recs, bedside PFTs were ordered Of note, sensitivities MRSA on blood culture 08/21 shows resistance to Ceftriaxone, sensitivity to Vancomycin Sputum culture showing MRSA Infectious disease consulted, appreciate recommendations Of note leukocytosis resolved Hospital Course: Met sepsis criteria on admission suspected given symptoms, CXR findings, and sepsis. Repeat CXR overnight on 08/21/2017 showing similar LLL infiltrate and cardiomegaly as initial study. Will give antibiotics as above for Severe Sepsis. Respiratory support as follows: * On admission required non-rebreather at 15L and was on BiPap. Transitioned to NC on 08/23 and is tolerating well. DNR CHANGED TO FULL CODE 08/22/2017 after conversation with patient, he states he would want intubation if indicated. ABG improved. * Goal is to see resolution of bacteremia on culture, wean to NC/room air as tolerated, with goal O2 sat >92% with no respiratory distress * Duonebs every 6 hours scheduled * Albuterol nebs q2 hr PRN wheezing or SOB * Continue Pulmicort, Singular * Respiratory toilet PRN * Will obtain repeat CXR and/or chest CT if indicated by worsening respiratory status or worsening sepsis * Will need chest x-ray as outpatient after discharge to confirm resolution of pneumonia * Rapid flu negative on admission. * Sputum culture showing MRSA. Urine Legionella and Pneumococcal Ag negative. * Antibiotics: status-post IV Vancomycin 1g and Cefepime 2g x 1 in ED. Given indwelling catheter, urinary and respiratory sources of infection, will continue IV Vancomycin (with pharmacy consult) * Vancomycin (08/21-current). Target trough 1520 * Rocephin 2 g IV daily (08/23 - current) * Cefepime (08/21-08/23) * Azithromycin 500mg IV daily (08/21-08/22) * Recheck CBC and BMP daily. WBC mildly elevated at 14.4 on 08/26, downtrending * Repeat CXR 08/26 showed stable disease ICD Codes: J18.9 - Pneumonia, unspecified organism Status: Acute (2) Left facial swelling Diagnosis: Secondary Plan: Improved overall with as needed cold compress Was noted to have left-sided facial swelling/mass noted on 08/25 in the preauricular region 3 x 2 cm mobile mass is tender and erythematous, nonfluctuant Slightly more swollen on 08/26 compared to 08/25, but stable on 08/27 Ultrasound is negative for any abscess, LAD or other signs of infection, thus suspect this is related to contact irritation related to CPAP machine Will consider CT scan (head or neck pending radiology recommendations) if symptoms worsen and abscess is suspected ICD Codes: R22.0 - Localized swelling, mass and lump, head Status: Acute (3) UTI (urinary tract infection) Diagnosis: Secondary Plan: History of MDRO UTI in 2013 and 2011. Has had chronic indwelling urostomy for 7-8 years related to history of bladder cancer which increases risk of severe infection. Urine was dark brown at time of admission, reportedly cloudy prior to admission. UA showing eder color, large LE, 77 WBC, 7 RBCs but urine culture negative. * Repeat UA on 08/22 showing trace leukocyte esterase, 14 WBC, 8 RBC and yellow color - improved from UA on admission * Antibiotics as described above * Strict Is/Os q shift * Urine culture negative from 08/21/2017 (final) and 08/23/2017 ICD Codes: N39.0 - Urinary tract infection, site not specified Status: Acute (4) Bacteremia due to Gram-positive bacteria Diagnosis: Secondary Plan: Sepsis on time of admission suspected due to bacteremia with pneumonia. Will continue to manage as above. Blood culture history: * 08/21: MRSA 4/4 bottles. Sensitivities showing resistance to Ancef, Rocephin, Erythromycin, Oxacillin, Emi * 08/22: MRSA 1/2 bottles. * 08/25: No growth 3 day * 08/26: No growth 2 days Sputum culture 08/25: MRSA Hospital Course: On admission, patient met severe sepsis criteria based on fever, RR and HR elevations, lactic acid >2, WBC 16K on admission. UA evident of infection, and AP CXR suggestive of RLL infiltrate. Suspected sources of UTI and PNA with management as described above. ICD Codes: R78.81 - Bacteremia Status: Resolved (5) Left arm swelling Diagnosis: Secondary Plan: Patient noted to have left forearm/hand swelling and pain on 08/22. Patient does complain of pain and loss of function following his stroke in May 2017 IV site does not appear to be infiltrated Ultrasound 08/23 showed diffuse soft tissue swelling with no evidence of thrombus Occupational therapy consultation, recommended OT in rehab Patient reporting improvement in pain and is noted to be using his left hand more readily on 08/24 ICD Codes: M79.89 - Other specified soft tissue disorders Status: Resolved (6) Troponin level elevated Diagnosis: Secondary Plan: Troponin level is 0.05 on admission. No chest pain. EKG showing sinus rhythm, rate ~100. No signs of ST changes, T wave changes, or heart block. Troponin elevation possibly related to sepsis, SERGIO. Takes daily aspirin, will continue. * BNP normal * 2D echo showing normal ejection fraction, moderate concentric LVH ICD Codes: R74.8 - Abnormal levels of other serum enzymes Status: Acute (7) Thrombocytopenia Diagnosis: Secondary Plan: Normalized on labs 08/25 to 173. Will monitor, continue SCDs for today. Platelets continued to increase to 202 on 08/26 Will start heparin on 08/26 for DVT prophylaxis Hospital Course: 90 K on admission, improved to 140 on 08/24, will monitor platelet count and held prophylactic anticoagulation until 08/26. Did receive one dose of Lovenox on 08/21/2017 after labs were drawn that day. ICD Codes: D69.6 - Thrombocytopenia, unspecified Status: Resolved (8) Altered mental status Diagnosis: Secondary Plan: Altered mental status noted on admission documentation, however, no AMS noted on exam. Mental status fluctuates; did have worsening AMS overnight on 05/2018 but resolved, possibly this was related to hypoxia. Does have recent history of CVA and was at SNF for rehab at time of this admission. * Monitor via neuro checks q 4 hr * CT head obtained 08/21/2017 showing chronic age-related changes with no acute bleed. No signs of infection or ischemia. * Hold home Seroquel, Continue Namenda 10mg PO BID and Aricept 10 mg PO hs ICD Codes: R41.82 - Altered mental status Status: Resolved (9) Hypothyroidism Diagnosis: Secondary Plan: On Synthroid 50micrograms daily, continue. TSH 1.63 ICD Codes: E03.9 - Hypothyroidism, unspecified Status: Chronic (10) Paroxysmal atrial fibrillation Diagnosis: Secondary Plan: Per half-way records. Rate controlled at this time. He was monitored on telemetry during ICU stay. Patient is not on anticoagulation, is on antiplatelet 81 mg aspirin. Patient is asymptomatic, will monitor for symptoms He does of note have recent CVA in May 2017 for which he received TPA and thereafter continued aspirin 81 mg daily ICD Codes: I48.0 - Paroxysmal atrial fibrillation Status: Chronic Consultants Critical Care, Infectious Disease, Pulmonology Brief History CBC/BMP: 08/28/17 0634 08/28/17 0634 Significant Findings Laboratory Tests Test 08/26/17 04:57 08/27/17 08:19 08/28/17 06:34 White Blood Count 14.4 TH/MM3 (4.0-11.0) 11.8 TH/MM3 (4.0-11.0) Red Blood Count 3.64 MIL/MM3 (4.50-5.90) 3.75 MIL/MM3 (4.50-5.90) 3.73 MIL/MM3 (4.50-5.90) Hemoglobin 11.1 GM/DL (13.0-17.0) 11.2 GM/DL (13.0-17.0) 11.4 GM/DL (13.0-17.0) Hematocrit 33.7 % (39.0-51.0) 34.9 % (39.0-51.0) 34.4 % (39.0-51.0) Neutrophils % (Manual) 74 % (16-70) Lymphocytes % 7 % (9-44) Eosinophils % 7 % (0-4) Neutrophils # (Manual) 11.5 TH/MM3 (1.8-7.7) Myelocytes 1 % (0-0) Random Glucose 117 MG/DL (74-106) 112 MG/DL (74-106) Neutrophils (%) (Auto) 75.7 % (16.0-70.0) 77.4 % (16.0-70.0) Monocytes (%) (Auto) 8.3 % (0.0-8.0) Neutrophils # (Auto) 8.9 TH/MM3 (1.8-7.7) 8.3 TH/MM3 (1.8-7.7) Monocytes # (Auto) 1.0 TH/MM3 (0-0.9) Imaging Last Impressions Neck Ultrasound 08/26/17 7121 Signed Impressions: Service Date/Time: Saturday, August 26, 2017 22:06 - CONCLUSION: 1. No sonographic abnormalities identified in the left neck in the area of redness. Wily Dunham MD Chest X-Ray 08/26/17 0000 Signed Impressions: Service Date/Time: Saturday, August 26, 2017 12:09 - CONCLUSION: 1. Cardiomegaly with small left basilar effusion and atelectasis. Stable compared to previous exam. Wilfredo Dukes MD Upper Extremity Ultrasound 08/23/17 0000 Signed Impressions: Service Date/Time: Wednesday, August 23, 2017 12:43 - CONCLUSION: 1. Diffuse soft tissue swelling without sonographic evidence for focal drainable fluid collection at this time. Yazan Deleon MD Renal Ultrasound 08/22/17 0000 Signed Impressions: Service Date/Time: Tuesday, August 22, 2017 08:32 - CONCLUSION: 1. Nonobstructing renal calcifications. No hydronephrosis. Bladder removed. Wily Dunham MD Lower Extremity Ultrasound 08/22/17 0000 Signed Impressions: Service Date/Time: Tuesday, August 22, 2017 08:18 - CONCLUSION: Negative for DVT. Wily Dunham MD Head CT 08/21/17 0000 Signed Impressions: Service Date/Time: Monday, August 21, 2017 23:15 - CONCLUSION: 1. No acute intracranial abnormality. 2. Atrophy. 3. Encephalomalacia of the right parietal lobe suggesting prior infarction. Bryan Hernandez Jr., MD PE at Discharge GENERAL: This is a well-nourished, well-developed male patient. Obese and nasal cannula in place at 4L. In no respiratory distress speaking full sentences. NEURO: Awake, alert, oriented to person, place, and year. Moves all extremities. SKIN: Cool and dry. No ecchymoses. No signs of skin infections on visualized areas. HEAD: Atraumatic. Normocephalic. No temporal or scalp tenderness. Patient has left-sided facial swelling approximate 3x2 in the preauricular region, with no obvious mass present and mildly tender to palpation. No fluctuance. Erythema improved. TMs clear bilaterally, minor irritation of left ear canal. EYES: No scleral icterus. Mild physiologic drainage. ENT: Nose without bleeding or purulent drainage. MMM with no erythema, exudates , or petechiae noted in the throat. No evidence of parotitis on exam. NECK: Very large neck with redundant skin. No obvious JVD or lymphadenopathy. Nontender, no meningeal signs. CARDIOVASCULAR: Regular rate and rhythm without murmurs, gallops, or rubs. Heart sounds distant due to body habitus. RESPIRATORY: Distant breath sounds due to body habitus, but clear to auscultation. No wheezes. GASTROINTESTINAL: Abdomen obese. Non-tender. Ventral hernia noted on left lower abdomen. GENITOURO: Urostomy tube with site approximately mid-abdomen with ostomy bag in place draining clear fluid. MUSCULOSKELETAL: Left hand/forearm improved. Extremities without clubbing, cyanosis, or edema. No joint tenderness, effusion, or edema noted. No calf tenderness. Hospital Course Patient is 77-year-old male with history of chronic urostomy who presented from half-way with altered mental status and respiratory distress. Labs notable for significant leukocytosis and he was febrile at time of admission. He initially required significant BiPAP support and was admitted to [facility]. He did report dark urine from urostomy. He did report suboptimal care at his current half-way. On admission he did meet sepsis criteria with white count and fever. He met severe sepsis criteria and responded well to initial resuscitation. He was started on vancomycin and cefepime with azithromycin. He is being treated for UTI and pneumonia. He was found to have MRSA bacteremia with multiple blood cultures including repeat showing positive bacteria. Critical care was consulted at the night of admission given increasing respiratory requirements but patient did not require any intubation ID was consulted and assisted with antibiotic regimen which was transitioned to cefepime, Vanco. Total antibiotic regimen as noted above. He did also have SERGIO on admission which was monitored closely resolved before discharge. He had a initial troponin elevation which was asymptomatic and likely related to chronic disease and his altered mental status quickly resolved with oxygenation. Notably his PFT is suggestive of COPD. Pulmonology was consulted during admission. He was evaluated and treated by wound care for his chronic urostomy during hospitalization with no evidence of infection on the urostomy site but possible UTI which was treated. He did make remarkable recovery. He was MRSA positive on blood culture and thus a PICC line was placed prior to discharge for patient to continue vancomycin with a stop date of 09/17/17. He did require oxygen at 4 L rate at baseline and this was continued at discharge. He was discharged to [facility] in stable condition on 08/28. Pt Condition on Discharge: Stable Discharge Disposition: Discharge to SNF Discharge Instructions DIET: Follow Instructions for: As Tolerated, No Restrictions Speech Therapy-Diet Recommends: Regular, [place] Thickened Liquids Activities you can perform: Regular-No Restrictions Follow up Referrals: PCP Follow-up - 1 Week Pulmonology - 1 Week New Medications: Nebulizer (Nebulizer) 1 Mis Mis EA .XX DIRECTED for Breathing Treatment, #1 0 Refills Acetaminophen (Eq Acetaminophen) 325 Mg Tab 650 MG PO Q4H PRN for TEMP > 100.4, #30 TAB Donepezil HCl (Aricept) 5 Mg Tablet 10 MG PO HS, #30 TAB [Albuterol Neb] () 2.5 MG/3 ML NEBU 2.5 MG INH Q2HR NEB PRN for SHORTNESS OF BREATH, #60 [Albuterol-Ipratropium Neb] () 1 AMPULE NEBU 1 AMPULE INH Q6HR NEB, #120 AMPULE 0 Refills Changed Medications: Mag Hydrox/Aluminum Hyd/Simeth (Maalox Maximum Strength Susp) 400 Mg-400 Mg-40 Mg/5 Ml Oral.susp 10 ML PO Q6HR, #1 BOTTLE 1 Refill (Changed from: Refills: ) Polyvinyl Alcohol Opth (Liquitears Opth) 1.4% Soln 1-2 DROP EACH EYE 5 TIMES A DAY PRN for DRY EYE, #1 BOTTLE (Medication details modified) Continued Medications: Aspirin DR (Aspirin DR) 81 Mg Tabdr 81 MG PO DAILY for Stroke Prevention, #30 TAB 0 Refills (This prescription has been renewed) Atorvastatin (Atorvastatin) 40 Mg Tab 40 MG PO HS for Stroke Prevention, #30 TAB (This prescription has been renewed) Budesonide Neb (Budesonide Neb) 0.5 Mg/2 Ml Neb 0.5 MG NEB Q12HR NEB for Breathing Treatment, #60 NEBULE 0 Refills (This prescription has been renewed) Levothyroxine (Levothyroxine) 50 Mcg Tab 50 MCG PO DAILY for Thyroid, #30 TAB 0 Refills (This prescription has been renewed) Lisinopril (Lisinopril) 10 Mg Tab 10 MG PO DAILY, #30 TAB 0 Refills (This prescription has been renewed) Loperamide (Imodium A-D) 2 Mg Capsule 4 MG PO DIRECTED PRN for DIARRHEA, #30 CAP 0 Refills (This prescription has been renewed) One capsule after each loose stool. Not to exceed 8 tablets per day. Loratadine (Claritin) 10 Mg Cap 10 MG PO DAILY for Allergy Management, #30 CAP 0 Refills (This prescription has been renewed) Magnesium Hydroxide Liq (Milk of Magnesia Liq) 400 Mg/5 Ml Susp 30 ML PO Q6H PRN for CONSTIPATION, #1 BOTTLE 0 Refills (This prescription has been renewed) Memantine-Donepezil (Namzaric) 28-10 Mg Cap 1 CAP PO HS for Alzheimer Dementia, #30 CAP 0 Refills (This prescription has been renewed) Montelukast (Singulair) 10 Mg Tab 10 MG PO HS, #30 TAB 0 Refills (This prescription has been renewed) Omeprazole (Omeprazole) 20 Mg Tab 20 MG PO DAILY, #30 TAB 0 Refills (This prescription has been renewed) Polyethylene Glycol 3350 Powder (Polyethylene Glycol 3350 Powder) 17 Gram Pow 17 GM PO DAILY PRN for CONSTIPATION, #1 BOTTLE 0 Refills (This prescription has been renewed) Quetiapine (Quetiapine) 25 Mg Tab 25 MG PO BID, #60 TAB 0 Refills (This prescription has been renewed) Discontinued Medications: Lorazepam (Lorazepam) 0.5 Mg Tab 0.5 MG PO Q8H PRN for ANXIETY, #90 TAB 0 Refills Stacy Sampson MD Aug 28, 2017 17:32
--- NOTE | 2017-08-28 18:02 | RADRPT ---
EXAM DATE/TIME: 08/28/2017 17:07 [place] COMPARISON: CHEST SINGLE AP, August 26, 2017, 12:09. INDICATIONS : PICC line placement. MEDICAL HISTORY : Carcinoma, prostate. CVA. Afib SURGICAL HISTORY : Prostatectomy. Hernia repair. Partial colon removal. Urostomy. Bladder removed ENCOUNTER: Initial ACUITY: 1 day PAIN SCORE: 0/10 LOCATION: Right upper chest FINDINGS: A single view of the chest demonstrates a right PICC line in right atrium. Mild basilar airspace dise ase. Small effusions, improved on the right since August 26. CONCLUSION: 1. Right PICC line tip in right atrium. Cardiomegaly with basilar atelectasis. Improved right effusio n since August 26 Wily Dunham MD on August 28, 2017 at 17:59 Board Certified Radiologist. This report was verified electronically.
--- NOTE | 2017-08-28 18:46 | HHI.PR ---
Subjective Remarks Awake and remains on O2 N/C at 3 L. Used BiPAP at HS. On Antibiotics per ID for UTI. On Diuretics. Overall better Objective Vital Signs Date Time Temp Pulse Resp B/P (MAP) Pulse Ox O2 Delivery O2 Flow Rate FiO2 08/28/17 16:00 82 08/28/17 16:00 97.7 82 27 118/56 (76) 96 08/28/17 13:03 3.00 08/28/17 12:16 95 3.00 08/28/17 12:00 98.2 93 34 128/86 (100) 95 08/28/17 12:00 93 08/28/17 08:00 97.3 80 28 131/62 (85) 94 08/28/17 08:00 80 08/28/17 04:00 98.1 80 20 111/55 (73) 94 08/28/17 04:00 87 08/28/17 00:00 86 08/28/17 00:00 98.0 86 126/58 (80) 93 08/27/17 20:00 98.7 82 20 93/61 (72) 95 08/27/17 20:00 82 08/27/17 19:41 94 Nasal Cannula 4.00 I/O 08/27/17 08/27/17 08/27/17 08/28/17 08/28/17 08/28/17 07:00 15:00 23:00 07:00 15:00 23:00 Intake Total 350 ml 480 ml Output Total 750 ml 875 ml 550 ml 975 ml Balance -400 ml -875 ml -550 ml -495 ml Intake Oral 350 ml 480 ml Output Urine Total 875 ml 550 ml 975 ml Stool Total 750 ml # Bowel Movements 1 1 2 Result Diagram: 08/28/17 0634 08/28/17 0634 Objective Remarks GENERAL: This is an elderly Obese white male in no acute distress. HEENT: Head is normocephalic. Pupils reactive and equal. Tongue moist. Nasal mucosa clear. Throat is clear NECK: Supple. No bruits, thyroid enlargement or lymphadenopathy. CHEST: Distant breath sounds with expiratory wheezes throughout both lung lopez, prolonged expiration. HEART: The heart sounds are irregular S1 and S2. No S3 gallop or murmur. ABDOMEN: Soft, obese without masses. No organomegaly, tenderness and bowel sounds are active. EXTREMITIES: Reveal edema 1+, decreased peripheral pulses and there were no gross motor deficits. NEUROLOGIC: No deficit RECTAL: Deferred. SKIN: No lesions. Assessment and Plan Assessment and Plan IMPRESSION: 1. Chronic respiratory failure. 2. Exogenous obesity. 3. Possible upper airway stridor. 4. Obstructive sleep apnea syndrome. 5. Urinary tract infection, resolved. Plan : 1. O2 at 3 L. 2. Duonebs qid. 3. Cont Antibiotics per ID 4. Symbicort 160/4.5 mcg, 2 puffs bid 5. Singulair 10 mg daily 6. Rehab Placement 7. IS at bedside q3h. Jessie Bowman MD Aug 28, 2017 18:46
--- NOTE | 2017-08-29 10:50 | RSPPFT ---
DATE OF PROCEDURE: 08/1417 COMMENTS: Spirometry demonstrates an FEV1 of 0.9 at 42% of predicted, FVC of 1.3 at 45%, FEF 25-75 is 27% of predicted. Post-bronchodilator study demonstrated no significant change. Flow volume loops are suggestive of a restrictive defect. IMPRESSION: 1. Moderately severe obstructive disease. 2. Additional moderate restrictive disease. 3. Mild response to use of bronchodilator.
[2017-08-30] MEDS ORDERED: PHARMACY ORDERED LAB ONE (17:45)
--- NOTE | 2017-09-01 11:20 | RSPPFT ---
DATE OF PROCEDURE: 08/25/17 COMMENTS: Spirometry demonstrates an FEV1 of 0.8 at 42% of predicted, FVC of 1.3 at 45%, FEF 25-75 is 27% of predicted. Flow volume loops are suggestive of a restrictive defect. IMPRESSION: 1. Moderately severe obstructive disease. 2. Additional moderate restrictive disease. 3. Mild response to use of bronchodilator.
== END 2017-08-28 18:59 | DRG 871 ==
LOC: NEPE 07:37 → NEDA 10:06 → NEDH 16:14 → HIMN 08-22 02:50
PROVIDERS: ADMIT Family Medicine; ATTEND Family Medicine
PROC: 5A09357 Assistance with Respiratory Ventilation, Less than 24 Consecutive Hours, Continuous Positive Airway Pressure (ICD-10-PCS; principal; 2017-08-21)
DX: A41.02 Sepsis due to Methicillin resistant Staphylococcus aureus (principal); J15.212 Pneumonia due to Methicillin resistant Staphylococcus aureus; J96.21 Acute and chronic respiratory failure with hypoxia; R65.21 Severe sepsis with septic shock; N17.9 Acute kidney failure, unspecified; E87.2 Acidosis; D69.6 Thrombocytopenia, unspecified; I42.9 Cardiomyopathy, unspecified; F03.90 Unspecified dementia, unspecified severity, without behavioral disturbance, psychotic disturbance, mood disturbance, and anxiety; J96.22 Acute and chronic respiratory failure with hypercapnia; I69.354 Hemiplegia and hemiparesis following cerebral infarction affecting left non-dominant side; E87.1 Hypo-osmolality and hyponatremia; Z68.44 Body mass index [BMI] 60.0-69.9, adult; N39.0 Urinary tract infection, site not specified; I48.0 Paroxysmal atrial fibrillation; D64.9 Anemia, unspecified; L53.8 Other specified erythematous conditions; K43.9 Ventral hernia without obstruction or gangrene; Z66 Do not resuscitate; G47.33 Obstructive sleep apnea (adult) (pediatric); Z85.46 Personal history of malignant neoplasm of prostate; Z85.51 Personal history of malignant neoplasm of bladder; H91.90 Unspecified hearing loss, unspecified ear; I10 Essential (primary) hypertension; R74.8 Abnormal levels of other serum enzymes; J44.9 Chronic obstructive pulmonary disease, unspecified; E66.01 Morbid (severe) obesity due to excess calories; E03.9 Hypothyroidism, unspecified; E78.5 Hyperlipidemia, unspecified; F10.21 Alcohol dependence, in remission; Z93.6 Other artificial openings of urinary tract status; Z90.79 Acquired absence of other genital organ(s); Z90.6 Acquired absence of other parts of urinary tract; G47.00 Insomnia, unspecified; K21.9 Gastro-esophageal reflux disease without esophagitis; F43.10 Post-traumatic stress disorder, unspecified; F32.9 Major depressive disorder, single episode, unspecified; Y95 Nosocomial condition; G93.89 Other specified disorders of brain; Z87.01 Personal history of pneumonia (recurrent); J30.9 Allergic rhinitis, unspecified; I35.0 Nonrheumatic aortic (valve) stenosis; M79.89 Other specified soft tissue disorders
CPT/HCPCS: 36569; 36600; 70450; 71045; 76536; 76775; 76882; 76937; 80048; 80053; 80202; 81001; 82550; 82552; 82805; 82948; 83605; 83690; 83735; 83880; 84100; 84443; 84484; 85007; 85025; 85027; 85610; 85730; 86403; 87040; 87070; 87086; 87147; 87186; 87205; 87449; 87641; 87804; 93005; 93306; 93970; 94002; 94003; 94060; 94618; 94640; 94664; 96365; 96367; J0456; J0692; J0696; J1644; J1650; J3370; J7030; J7040; J7050; J7613; J7626

== ENCOUNTER 2017-10-17 15:21 | Emergency (ER) | payer MEDICARE, OTHER ==
[2017-10-17 17:00] LABS: AUTOMATED NEUTROPHIL # 8.2 TH/MM3 (1.8-7.7); BASOPHIL # 0.1 TH/MM3 (0-0.2); EOSINOPHIL # 0.3 TH/MM3 (0-0.4); EOSINOPHIL % 2.8 % (0.0-4.0); HEMATOCRIT 36.5 % (39.0-51.0); HEMO FLAGS DIFF FINAL; LYMPH % 12.6 % (9.0-44.0); LYMPHOCYTE # 1.4 TH/MM3 (1.0-4.8); MEAN CELL VOLUME 92.6 FL (80.0-100.0); MEAN CORPUSCULAR HEMOGLOBIN 30.4 PG (27.0-34.0); MEAN CORPUSCULAR HGB CONC 32.9 % (32.0-36.0); MEAN PLATELET VOLUME 8.6 FL (7.0-11.0); MONO % 9.3 % (0.0-8.0); NEUT % 74.3 % (16.0-70.0); PLATELET COUNT 241 TH/MM3 (150-450); RED BLOOD COUNT 3.95 MIL/MM3 (4.50-5.90); RED CELL DISTRIBUTION WIDTH 14.8 % (11.6-17.2); WHITE BLOOD COUNT 11.1 TH/MM3 (4.0-11.0)
[2017-10-17 17:06] LABS: BACTERIA, URINE MANY /hpf; BILIRUBIN, URINE NEG (NEG); BLOOD, URINE MOD (NEG); COMMENT (UR) CULTURE INDICATED; CULTURE IF INDICATED CULTURE INDICATED; GLUCOSE,URINE NEG (NEG); KETONE, URINE NEG (NEG); NITRITE,URINE NEG (NEG); PH, URINE 8.5 (5.0-8.5); SQUAMOUS EPITHELIAL CELL URINE <1 /hpf (0-5); TRIPLE PHOSPHATE CRYSTAL,URINE MOD /hpf; URINE COLOR YELLOW (YELLW/STRAW); URINE LEUKOCYTE ESTERASE LARGE (NEG)
[2017-10-17 17:13] LABS: ALT (GPT) 29 U/L (12-78); ANION GAP 8 MEQ/L (5-15); AST (GOT) 22 U/L (15-37); BICARBONATE 28.8 MEQ/L (21.0-32.0); BLOOD UREA NITROGEN 23 MG/DL (7-18); CALCIUM 8.5 MG/DL (8.5-10.1); CHLORIDE 101 MEQ/L (98-107); CREATININE 1.19 MG/DL (0.60-1.30); GLOMERULAR FILTRATION RATE 59 ML/MIN (>89); GLUCOSE,RANDOM 108 MG/DL (74-106); LIPASE 119 U/L (73-393); MAGNESIUM 2.1 MG/DL (1.5-2.5); POTASSIUM 5.1 MEQ/L (3.5-5.1); SODIUM (NA) 138 MEQ/L (136-145)
[2017-10-17 17:18] LABS: ALKALINE PHOSPHATASE 86 U/L (45-117); TOTAL BILIRUBIN ADULT 0.2 MG/DL (0.2-1.0); TOTAL PROTEIN 7.5 GM/DL (6.4-8.2); TROPONIN I LESS THAN 0.02 NG/ML (0.02-0.05)
[2017-10-17 17:19] LABS: INTERNATIONAL NORMALIZED RATIO 1.1 RATIO; PROTHROMBIN TIME - PATIENT 10.7 SEC (9.8-11.6)
[2017-10-17 17:23] LABS: B-TYPE NATRIURETIC PEPTIDE 119 PG/ML (0-100)
[2017-10-17 17:30] LABS: CREATINE KINASE 60 U/L (39-308)
[2017-10-17] MEDS: SODIUM CHLORIDE 0.9% FLUSH 10 ML FLUSH IVF ×2 (17:34→18:49)
[2017-10-17] MEDS ORDERED: IOHEXOL 350 MG/ML 10 ML VIAL (for RAD DIAG) IVCONTRAST (17:58)
[2017-10-17] MEDS: NITROFURANTOIN MONOHYD MACROCR 100 MG CAP PO (18:49)
== END 2017-10-17 20:15 ==
LOC: NEPE 15:21
DX: N39.0 Urinary tract infection, site not specified (principal); N28.1 Cyst of kidney, acquired; J90 Pleural effusion, not elsewhere classified; R06.02 Shortness of breath; I10 Essential (primary) hypertension; Z79.899 Other long term (current) drug therapy
CPT/HCPCS: 71045; 74177; 80053; 81001; 82550; 83690; 83735; 83880; 84484; 85025; 85610; 85730; 87077; 87086; 87186; 93005; 99285

== ENCOUNTER 2018-01-18 13:29 | Inpatient (IN) ==
[2018-01-18] MEDS ORDERED: Midazolam 50 MG/50 ML Inj 50 MG/50 ML BAG IV.CONT ONE ×2 (13:37→17:26)
[2018-01-18] MEDS: Midazolam 50 MG/50 ML Inj 50 MG/50 ML BAG IV.CONT PRN ×3 (13:45→21:08)
[2018-01-18] MEDS ORDERED: Etomidate Inj 20 MG/10 ML Ampul IV.PUSH ONE (13:49)
[2018-01-18] MEDS ORDERED: Succinylcholine Inj 200 MG/10 ML Vial IV.PUSH ONE (13:49)
[2018-01-18] MEDS ORDERED: Propofol Inj 500 MG/50 ML Vial ONE (14:14)
[2018-01-18] MEDS: Propofol 1000 mg/100 ml Inj 1,000 MG/100 ML BOTTLE IV.CONT PRN ×2 (14:15→21:07)
--- NOTE | 2018-01-18 14:25 | XR ---
EXAM DATE: 01/18/2018 2:03 PM EDT AGE/SEX: 77 years / Male INDICATIONS: Post intubation. CLINICAL DATA: This is the patient's initial encounter. Patient reports that signs and symptoms have been present for 1 day and indicates a pain score of Nonresponsive. MEDICAL/SURGICAL HISTORY: Non-responsive. Non-responsive. COMPARISON: [facility] [place], CHEST SINGLE AP, 10/17/2017. . FINDINGS: Small bilateral pleural effusions are present and with minimal bibasilar atelectasis. No pneumothorax seen. Heart size upper limits of normal. Endotracheal tube tip is approximately 4 cm above the toro. There is a nasogastric tube coursing in to the stomach. CONCLUSION: Small effusions and mild consolidation bilaterally. Electronically signed by: Chaparro Syed MD 01/18/2018 2:24 PM EDT
[2018-01-18 14:26] LABS: Baso # (Auto) 0.1 th/mm3 (0.0-0.2); Baso % (Auto) 0.4 % (0.0-2.0); Eos % (Auto) 0.3 % (0.0-4.0); Hematocrit 38.6 % (39.0-51.0); Hemoglobin 12.8 gm/dL (13.0-17.0); Lymph # (Auto) 1.2 th/mm3 (1.0-4.8); Lymph % (Auto) 8.4 % (9.0-44.0); Mean Corpuscular HGB Conc 33.1 % (32.0-36.0); Mean Corpuscular Hemoglobin 31.1 pg (27.0-34.0); Mean Platelet Volume 9.2 fL (7.0-11.0); Mono # (Auto) 0.9 th/mm3 (0.0-0.9); Mono % (Auto) 6.5 % (0.0-8.0); Neut # (Auto) 11.8 th/mm3 (1.8-7.7); Neut % (Auto) 84.4 % (16.0-70.0); Platelet Count 214 th/mm3 (150-450); Red Blood Count 4.11 mil/mm3 (4.50-5.90); Red Cell Distribution Width 14.7 % (11.6-17.2)
[2018-01-18 14:41] LABS: Albumin 3.3 g/dL (3.4-5.0); Anion Gap 10 meq/L (5-15); Aspartate Aminotransferase 22 U/L (15-37); Blood Urea Nitrogen 22 mg/dL (7-18); Calcium 9.1 mg/dL (8.5-10.1); Carbon Dioxide 27.4 meq/L (21.0-32.0); Chloride 95 meq/L (98-107); Glomerular Filtration Rate 89 mL/min (>89); Glucose,Random 167 mg/dL (74-106); Potassium 4.8 meq/L (3.5-5.1); Sodium 132 meq/L (136-145)
[2018-01-18 14:42] LABS: Alanine Aminotransferase 33 U/L (12-78)
[2018-01-18 14:46] LABS: Alkaline Phosphatase 96 U/L (45-117); Total Protein 7.9 g/dL (6.4-8.2)
[2018-01-18 14:47] LABS: Creatine Kinase 91 U/L (39-308)
[2018-01-18 14:50] LABS: ABG Base Excess 5.9 mmol/L (-2-2); ABG PCO2 53 mmHg (38-42); ABG PO2 184 mmHg (61-120)
[2018-01-18 15:26] LABS: INR 1.1 Ratio
--- NOTE | 2018-01-18 15:43 | ED ---
HPI General Chief complaint: Respiratory Symptoms Stated complaint: Medical/Emergent Time Seen by Provider: 01/18/18 13:48 History of Present Illness HPI narrative: This is a 77-year-old male history of COPD, Alzheimer's, hyperlipidemia, anxiety disorder, gastroesophageal reflux, hypothyroidism, who presents via EMS in severe respiratory distress. The patient apparently was diagnosed with a UTI yesterday. He apparently began having shortness of breath. He was given nebulizer treatments with no improvement. The facility that he is at ordered a chest x-ray however did not have the results back as of yet. Patient reportedly told the paramedics that while he was a DNR, he still wanted to be intubated. Paramedics placed him on CPAP however he started to decline and became less conscious and more apneic. No further history could be elicited. Related Data Allergies Allergy/AdvReac Type Severity Reaction Status Date / Time penicillin G Allergy Severe as a child Unverified 10/17/17 17:23 Review of Systems ROS Unobtainable ROS Unobtainable: unobtainable due to mental condition and unobtainable due to mental status PMFSH Medical History Medical History Alzheimer disease (Acute) Anxiety (Acute) COPD (chronic obstructive pulmonary disease) (Acute) Dysphagia (Acute) GERD (gastroesophageal reflux disease) (Acute) Hernia (Acute) Hyperlipemia (Acute) Hypertension (Acute) Hypothyroidism (Acute) MRSA (methicillin resistant Staphylococcus aureus) (Acute) Sepsis (Acute) UTI (urinary tract infection) (Acute) Surgical History Surgical History History of urostomy (Acute) Social History Social History Substance History: Unable to Obtain Smoking Status: Smoker, status unknown Tobacco Type: Cigarettes How Often Do You Have a Drink Containing Alcohol: Unable to Obtain Recent Travel in [facility] within the Last 8 Weeks: No Recent Out of Country Travel within the Last 8 Weeks: No Immunization History Tetanus Immunization: Unable to Assess Hx Influenza Vaccine This Season: Unable to Assess Exam Narrative Exam Narrative: GENERAL: Obese male in severe respiratory distress. Patient had CPAP in place and was becoming apneic. SKIN: Focused skin assessment warm/dry. HEAD: Atraumatic. Normocephalic. EYES: Pupils equal and round. No scleral icterus. No injection or drainage. ENT: No nasal bleeding or discharge. Mucous membranes pink and moist. NECK: Trachea midline. Large neck therefore no JVD could be appreciated. CARDIOVASCULAR: Sinus tachycardia with a rate in the low 100s.. No murmur appreciated. RESPIRATORY: Decreased respiratory effort. Decreased breath sounds bilaterally secondary to habitus and respiratory effort. GASTROINTESTINAL: Abdomen soft, obese, nontender. There was a reducible umbilical hernia noted. No rebound or guarding. MUSCULOSKELETAL: No obvious deformities. No clubbing. No cyanosis. Chronic venous stasis changes to the bilateral lower extremities. NEUROLOGICAL: Awake and fatigued. Cranial nerves II through XII intact. He was observed moving his extremities. With arousal, he had fragmented speech. Procedures Intubation Sedative: etomidate Mg Given: 30 Paralytic: succinylcholine Mg Given: 150 ET Tube Size: 8 ET Tube Uncuffed: Yes Tube Secured Depth (cm): 32 Course Initial Documented Vital Signs Pulse Rate 98 H 01/18/18 13:30 Respiratory Rate 34 H 01/18/18 13:30 Blood Pressure 190/81 H 01/18/18 13:30 Pulse Oximetry 97 01/18/18 13:30 Last Documented Vital Signs Pulse Rate 85 01/18/18 15:30 Respiratory Rate 16 01/18/18 15:30 Blood Pressure 144/72 H 01/18/18 15:30 Pulse Oximetry 100 01/18/18 15:30 Critical Care Time Critical Care Time: Yes Total Critical Care Time: 60 Attestation: Aggregate critical care time was 60 minutes. Time to perform other separately billable procedures was not included in the critical care time. My time did not include minutes spent treating any other patients simultaneously or on activities that did not directly contribute to the patient's treatment. The services I provided to this patient were to treat and/or prevent clinically significant deterioration that could result in: I provided critical care services requiring my management, as noted below: Chart data review, documentation time, medication orders and management, vital sign assessments/reviewing monitor data, ordering and reviewing lab tests, ordering and interpreting/reviewing x-rays and diagnostic studies, care of the patient and discussion of the patient with the admitting physicians. Medical Decision Making MDM Narrative Medical decision making narrative: 77-year-old male with a history of COPD, hyperlipidemia, Alzheimer's disease, hypothyroidism, presents from the [facility] in severe respiratory distress. Patient is a DNR however made wishes to the paramedics that he wished to be intubated. Patient was starting to fatigue despite CPAP. Decision to intubate was made. Patient was sedated with etomidate and succinylcholine and intubated using the [facility] with an 8.0 ET tube. Patient has effusions and consolidation noted on chest x-ray. Patient also has what appears to be pyuria. Cultures have been obtained on blood and urine. There is a call out to the projector operator for admission. Differential Diagnosis Differential Diagnosis: Cyst versus pneumonia versus urinary tract infection versus metabolic derangement versus CHF. Lab Data Result diagrams: 01/18/18 13:50 01/18/18 13:50 Lab Results 01/18/18 01/18/18 01/18/18 Range/Units 13:46 13:50 13:50 WBC 14.0 H (4.0-11.0) th/mm3 RBC 4.11 L (4.50-5.90) mil/mm3 Hgb 12.8 L (13.0-17.0) gm/dL Hct 38.6 L (39.0-51.0) % MCV 94.0 (80.0-100.0) fL MCH 31.1 (27.0-34.0) pg MCHC 33.1 (32.0-36.0) % RDW 14.7 (11.6-17.2) % Plt Count 214 (150-450) th/mm3 MPV 9.2 (7.0-11.0) fL Neut % (Auto) 84.4 H (16.0-70.0) % Lymph % (Auto) 8.4 L (9.0-44.0) % [place] % (Auto) 6.5 (0.0-8.0) % Eos % (Auto) 0.3 (0.0-4.0) % Baso % (Auto) 0.4 (0.0-2.0) % Neut # (Auto) 11.8 H (1.8-7.7) th/mm3 Lymph # (Auto) 1.2 (1.0-4.8) th/mm3 [place] # (Auto) 0.9 (0.0-0.9) th/mm3 Eos # (Auto) 0.0 (0.0-0.4) th/mm3 Baso # (Auto) 0.1 (0.0-0.2) th/mm3 WBC Differential . Differential Comment Auto diff final PT 11.0 (9.8-11.6) sec INR 1.1 Ratio APTT 25.0 (24.3-30.1) sec Puncture Site Patient Temperature O2 Saturation (90-100) % ABG pH (7.380-7.420) ABG pCO2 (38-42) mmHg ABG pO2 (61-120) mmHg ABG HCO3 (22-26) mmol/L ABG O2 Content (12.0-20.0) Vol % ABG Base Excess (-2-2) mmol/L ABG Methemoglobin (0-2) % Navjot Test Hemoglobin (12.0-16.0) G/DL Carboxyhemoglobin (0-4) % O2 Delivery Device Vent Setting Inspired O2 % Critical Value Sodium (136-145) meq/L Potassium (3.5-5.1) meq/L Chloride (98-107) meq/L Carbon Dioxide (21.0-32.0) meq/L Anion Gap (5-15) meq/L BUN (7-18) mg/dL Creatinine (0.60-1.30) mg/dL Estimated GFR (>89) mL/min POC Glucose 180 H (68-110) mg/dl Random Glucose (74-106) mg/dL Calcium (8.5-10.1) mg/dL Total Bilirubin (0.2-1.0) mg/dL AST (15-37) U/L ALT (12-78) U/L Alkaline Phosphatase (45-117) U/L Total Creatine Kinase (39-308) U/L Troponin I (0.02-0.05) ng/mL Total Protein (6.4-8.2) g/dL Albumin (3.4-5.0) g/dL 01/18/18 01/18/18 Range/Units 13:50 14:36 WBC (4.0-11.0) th/mm3 RBC (4.50-5.90) mil/mm3 Hgb (13.0-17.0) gm/dL Hct (39.0-51.0) % MCV (80.0-100.0) fL MCH (27.0-34.0) pg MCHC (32.0-36.0) % RDW (11.6-17.2) % Plt Count (150-450) th/mm3 MPV (7.0-11.0) fL Neut % (Auto) (16.0-70.0) % Lymph % (Auto) (9.0-44.0) % [place] % (Auto) (0.0-8.0) % Eos % (Auto) (0.0-4.0) % Baso % (Auto) (0.0-2.0) % Neut # (Auto) (1.8-7.7) th/mm3 Lymph # (Auto) (1.0-4.8) th/mm3 [place] # (Auto) (0.0-0.9) th/mm3 Eos # (Auto) (0.0-0.4) th/mm3 Baso # (Auto) (0.0-0.2) th/mm3 WBC Differential Differential Comment PT (9.8-11.6) sec INR Ratio APTT (24.3-30.1) sec Puncture Site Right radial Patient Temperature 98.6 O2 Saturation 97 (90-100) % ABG pH 7.39 (7.380-7.420) ABG pCO2 53 H* (38-42) mmHg ABG pO2 184 H (61-120) mmHg ABG HCO3 31 H (22-26) mmol/L ABG O2 Content 16.9 (12.0-20.0) Vol % ABG Base Excess 5.9 H (-2-2) mmol/L ABG Methemoglobin 1.1 (0-2) % Navjot Test Present Hemoglobin 12.2 (12.0-16.0) G/DL Carboxyhemoglobin 1.3 (0-4) % O2 Delivery Device Ventilator Vent Setting Truck Shop Super[employer] Inspired O2 100 % Critical Value Yes Sodium 132 L (136-145) meq/L Potassium 4.8 (3.5-5.1) meq/L Chloride 95 L (98-107) meq/L Carbon Dioxide 27.4 (21.0-32.0) meq/L Anion Gap 10 (5-15) meq/L BUN 22 H (7-18) mg/dL Creatinine 0.84 (0.60-1.30) mg/dL Estimated GFR 89 (>89) mL/min POC Glucose (68-110) mg/dl Random Glucose 167 H (74-106) mg/dL Calcium 9.1 (8.5-10.1) mg/dL Total Bilirubin 0.5 (0.2-1.0) mg/dL AST 22 (15-37) U/L ALT 33 (12-78) U/L Alkaline Phosphatase 96 (45-117) U/L Total Creatine Kinase 91 (39-308) U/L Troponin I Less than 0.02 L (0.02-0.05) ng/mL Total Protein 7.9 (6.4-8.2) g/dL Albumin 3.3 L (3.4-5.0) g/dL Imaging Data Radiologist's impression: Chest X-Ray 01/18/18 13:36 CONCLUSION: Small effusions and mild consolidation bilaterally. Discharge Plan Discharge Disposition Patient Disposition: 30 Still Patient Discharge Details Diagnosis: Sepsis, Pneumonia, Chronic UTI (urinary tract infection), COPD exacerbation Physicians Team ED Provider: Tim Moore Primary Care Provider: UNKNOWN, Discharge Interventions Interventions: Vital Signs Last Done: 01/18/18 15:30 Status ED Status: With Doctor
[2018-01-18] MEDS ORDERED: Vancomycin Inj 1,000 MG in Sodium Chlor 0.9% Inj 250 ML IV.SIG STA (15:45)
[2018-01-18] MEDS ORDERED: Aztreonam Inj 2 GM in Sodium Chloride 0.9% Inj 100 ML IV.SIG STA (15:45)
[2018-01-18 16:38] LABS: Amorphous Sediment,Urine Occasional /hpf; Bacteria,Urine Moderate /hpf; Bilirubin,Urine Negative (Negative); Clarity,Urine Cloudy (Clear); Color,Urine Yellow (Yellw/Straw); Glucose,Urine (UA) Negative (Negative); Hyaline Casts,Urine 5 /lpf (0-3); Leukocyte Esterase,Urine Trace (Negative); Nitrite,Urine Negative (Negative); Specific Gravity,Urine 1.008 (1.002-1.035); Squamous Epithelial Cell,Urine <1 /hpf (0-5); Triple Phosphate Crystal,Urine Many /hpf
[2018-01-18] MEDS ORDERED: Bisacodyl 10 MG Supp RECTAL PRN (16:40)
[2018-01-18] MEDS ORDERED: Dextrose 50% in Water 50 ML Vial IV.PUSH PRN (16:43)
[2018-01-18] MEDS ORDERED: Vancomycin Consult Pharmacy 1 EACH OTHER SCH (17:00)
--- NOTE | 2018-01-18 17:20 | MH ---
cc: Sushma Souza MD DATE OF ADMISSION: 01/18/2018 DATE OF : 1940 HISTORY OF PRESENT ILLNESS: The patient is a 77-year-old male, [facility] resident, with a past medical history of COPD, Alzheimer's dementia, hyperlipidemia, anxiety disorder, GERD, hypothyroidism, who presented to [facility] ED via EMS in respiratory distress. The patient was being treated for urinary tract infection. Per ED records, patient told paramedics that he wanted to be intubated while he was a DNR. Paramedics placed him on CPAP; however, due to decline in his respiratory status and altered mental status, he was intubated in the ED and placed on full mechanical ventilation. His laboratory data showed leukocytosis with a WBC of 14.0 and urinalysis was grossly positive for bacteria, leukocyte esterase. Chest x-ray post-intubation showed mild consolidation bilaterally and small effusions. In the ED, he was intubated with etomidate, Versed and placed on propofol and Versed drip for sedation. The patient was given aztreonam, Flagyl and vancomycin in the ED. PAST MEDICAL HISTORY: Significant for Alzheimer's disease, anxiety disorder, COPD, GERD, hernia, hyperlipidemia, hypertension, hypothyroidism. PAST SURGICAL HISTORY: History of urostomy. SOCIAL HISTORY: Unobtainable. The patient is a [facility] resident. ALLERGIES: PENICILLIN G. MEDICATIONS AT HOME: Include aspirin and atorvastatin. FAMILY HISTORY: Noncontributory to present illness. REVIEW OF SYSTEMS: As per HPI, the rest of review of systems unobtainable as the patient is intubated. PHYSICAL EXAMINATION: GENERAL: A 77-year-old male, intubated for respiratory failure and sedated with propofol and Versed drip. VITAL SIGNS: Temperature 98.5, pulse of 71, blood pressure 122/55, saturation 100%. VENT SETTINGS: PRVC rate of 16, tidal volume 550, I time 1.0, PEEP of 8, FiO2 100%. HEENT: Atraumatic and normocephalic. Pupils are equal, round, reactive to light and accommodation . Extraocular muscles intact. Conjunctivae pink. Nonicteric sclerae. Oral mucosa within normal. NECK: Supple. No JVD, adenopathy or thyromegaly. Trachea in the midline. CARDIOVASCULAR: Regular rate and rhythm. Normal S1, S2. No murmurs, rubs or gallops noted. PULMONARY: Bilateral equal air entry, no crackles. ABDOMEN: Soft, obese, nontender. No distention. Positive bowel sounds. EXTREMITIES: No cyanosis, clubbing or edema. Chronic venous stasis noted bilaterally. NEUROLOGIC: Intubated and sedated. LABORATORY DATA: WBC 14, hemoglobin 12.8, hematocrit 38, and platelet count of 214. Sodium 132, potassium 4.8, chloride 95, CO2 27, BUN 22, creatinine 0.84, glucose of 167. Troponin less than 0.02. Urinalysis showed trace leukocyte esterase, 2 WBCs, moderate bacteria. ABG post-intubation showed a pH of 7.39, CO2 53, PaO2 184, bicarbonate of 31, saturation 97%. RADIOGRAPHIC STUDIES: A chest x-ray showed ET tube above the toro, mild consolidation bilaterally with small effusions. IMPRESSION: 1. Acute hypoxemic and hypercapnic respiratory failure. 2. Chronic obstructive pulmonary disease exacerbation. 3. Urinary tract infection. 4. Possible pneumonia. 5. History of hypertension. 6. Hypothyroidism. 7. Alzheimer's dementia. 8. Gastroesophageal reflux disease. 9. Hyperlipidemia. RECOMMENDATIONS: 1. Continue with propofol and Versed infusion for sedation and daily sedation vacation. Monitor neuro status closely. 2. Continue with vent support and maintain sats above 92%. 3. Bronchodilators in the form of DuoNeb q. 6 plus q.2 hours p.r.n. for shortness of breath. I will start the patient on Solu-Medrol 60 mg IV every 8 hours. 4. We will initiate ICU vent bundle. Decrease FiO2 as tolerated. Start spontaneous breathing trials in the morning. 5. Monitor heart rate and blood pressure closely and maintain MAP greater than 65 mmHg. Continue with aspirin 81 mg daily. 6. Monitor renal function, I's and O's and electrolyte replacement per protocol. We will place on NS at 75 mL an hour. 7. Keep n.p.o. for now and place on Pepcid 20 mg IV every 12 hours. Start nutritional support within the next 24 hours if remains intubated. 8. Continue with broad spectrum antibiotics in the form of vancomycin and aztreonam. Monitor for signs of infection, which include fever and WBC. Followup on blood and urine cultures. We will obtain a sputum culture with Gram's stain. In addition, we will check Strep pneumoniae and Legionella urinary antigen. 9. Monitor CBC. 10. Place on sliding scale insulin with Accu-Cheks for glycemic control as the patient will be on intravenous steroids. 11. Check a baseline TSH level. 12. Gastrointestinal prophylaxis with Pepcid 20 mg every 12 hours and deep venous thrombosis prophylaxis with sequential compression devices and heparin subcutaneous and Lovenox 40 mg subcutaneous daily. 13. Place central line if indicated. MD DIANA Cox/LANDRY , 04:56 PM , 05:08 PM
[2018-01-18] MEDS: Sod Chloride 0.9% Inj 1,000 ML IV.CONT SCH (18:40)
[2018-01-18] MEDS: Insulin NovoLIN Regular Correctional Sugar Inj SQ SCH (21:06)
[2018-01-18] MEDS: MethylPREDNISolone Sod Succinate Inj 40 MG/ML Vial IV.PUSH SCH (21:06)
[2018-01-18] MEDS: Enoxaparin Inj 40 MG/0.4 ML Syringe SQ SCH (21:06)
[2018-01-18] MEDS: Famotidine PF Inj 20 MG/2 ML Vial IV.PUSH SCH (21:07)
[2018-01-19] MEDS: Vancomycin Inj 1,600 MG in Sodium Chlor 0.9% Inj 500 ML IV.SIG SCH ×2 (00:20→11:11)
[2018-01-19] MEDS: Insulin NovoLIN Regular Correctional Sugar Inj SQ SCH ×6 (00:20→19:45)
[2018-01-19] MEDS: Midazolam 50 MG/50 ML Inj 50 MG/50 ML BAG IV.CONT PRN ×2 (00:21→05:48)
[2018-01-19] MEDS ORDERED: Chlorhexidine Gluconate 2% 1 Pack (2 Cloths) TOPICAL PRN (04:00)
[2018-01-19 05:11] LABS: Albumin 2.8 g/dL (3.4-5.0); Anion Gap 10 meq/L (5-15); Aspartate Aminotransferase 23 U/L (15-37); Blood Urea Nitrogen 26 mg/dL (7-18); Calcium 8.5 mg/dL (8.5-10.1); Carbon Dioxide 29.4 meq/L (21.0-32.0); Chloride 96 meq/L (98-107); Glomerular Filtration Rate 75 mL/min (>89); Glucose,Random 115 mg/dL (74-106); Magnesium 2.1 mg/dL (1.5-2.5)
[2018-01-19 05:12] LABS: Alanine Aminotransferase 26 U/L (12-78)
[2018-01-19 05:21] LABS: Alkaline Phosphatase 79 U/L (45-117); Phosphorus 2.4 mg/dL (2.5-4.9); Thyroid Stimulating Hormone 0.843 uIU/mL (0.358-3.740); Total Protein 6.8 g/dL (6.4-8.2)
[2018-01-19 05:23] LABS: Sodium 135 meq/L (136-145)
[2018-01-19] MEDS: MethylPREDNISolone Sod Succinate Inj 40 MG/ML Vial IV.PUSH SCH ×3 (05:47→19:46)
[2018-01-19] MEDS: Chlorhexidine Gluconate 2% 1 Pack (2 Cloths) TOPICAL SCH (05:47)
[2018-01-19] MEDS: Propofol 1000 mg/100 ml Inj 1,000 MG/100 ML BOTTLE IV.CONT PRN (05:48)
[2018-01-19] MEDS: Famotidine PF Inj 20 MG/2 ML Vial IV.PUSH SCH ×2 (08:08→22:23)
[2018-01-19] MEDS: Sod Chloride 0.9% Inj 1,000 ML IV.CONT SCH (08:13)
[2018-01-19] MEDS ORDERED: Magnesium Oxide 400 MG Tablet PO PRN (08:42)
[2018-01-19] MEDS ORDERED: Magnesium Sulfate Inj 4 GM in Sodium Chlor 0.9% Inj 92 ML IV.SIG PRN (08:42)
[2018-01-19] MEDS ORDERED: Potassium Chlor 20 mEq Premix 20 MEQ/100 ML PIGGYBACK IV.SIG PRN ×2 (08:42)
[2018-01-19] MEDS ORDERED: Potassium Phosphate 500 MG Soluble Tablet PO PRN ×2 (08:42)
[2018-01-19] MEDS ORDERED: Potassium Chloride 25 MEQ Effervescent Tablet PO PRN (08:42)
[2018-01-19] MEDS ORDERED: Magnesium Sulfate Inj 2 GM in Sodium Chlor 0.9% Inj 96 ML IV.SIG PRN (08:42)
[2018-01-19] MEDS ORDERED: Sodium Phosphate Inj 30 MMOL in Sodium Chlor 0.9% Inj 250 ML IV.SIG PRN (08:42)
[2018-01-19] MEDS ORDERED: Potassium Phosphate Inj 30 MMOL in Sodium Chlor 0.9% Inj 250 ML IV.SIG PRN (08:42)
[2018-01-19] MEDS ORDERED: Potassium Chlor 40 mEq Premix 40 MEQ/100 ML PIGGYBACK IV.SIG PRN ×2 (08:42)
--- NOTE | 2018-01-19 08:42 | P.PNCC ---
Subjective Subjective Remarks/Hospital Course: Patient is a 77-year-old male, [facility] resident, with a past medical history of COPD, Alzheimer's dementia, hyperlipidemia, anxiety disorder, GERD, hypothyroidism, who presented to [facility] ED via EMS in respiratory distress. The patient was being treated for urinary tract infection. Per ED records, patient told paramedics that he wanted to be intubated while he was a DNR. Paramedics placed him on CPAP; however, due to decline in his respiratory status and altered mental status, he was intubated in the ED and placed on full mechanical ventilation. His laboratory data showed leukocytosis with a WBC of 14.0 and urinalysis was grossly positive for bacteria, leukocyte esterase. Chest x-ray post-intubation showed mild consolidation bilaterally and small effusions. In the ED, he was intubated with etomidate, Versed and placed on propofol and Versed drip for sedation. The patient was given aztreonam, Flagyl and vancomycin in the ED. 01/19 Patient is sedated with Versed and Diprivan. Afebrile. Objective Vital Signs / I&O: Vital Signs 01/18/18 13:30 01/18/18 13:31 01/18/18 13:50 Temperature 98.5 F Pulse Rate 98 H 97 H 92 H Respiratory Rate 34 H 37 H 16 Blood Pressure 190/81 H 190/81 H 142/58 H Pulse Oximetry 97 98 100 01/18/18 14:00 01/18/18 14:30 01/18/18 14:42 Temperature Pulse Rate 80 76 Respiratory Rate 18 16 Blood Pressure 92/42 L Pulse Oximetry 100 100 01/18/18 14:43 01/18/18 14:45 01/18/18 14:50 Temperature Pulse Rate 78 67 76 Respiratory Rate 16 16 16 Blood Pressure 169/72 H 96/61 L 113/59 L Pulse Oximetry 100 100 100 01/18/18 15:00 01/18/18 15:30 01/18/18 16:00 Temperature Pulse Rate 66 85 69 Respiratory Rate 16 16 16 Blood Pressure 114/55 L 144/72 H 159/60 H Pulse Oximetry 100 100 100 01/18/18 16:33 01/18/18 18:00 01/18/18 18:11 Temperature 98.2 F Pulse Rate 67 69 Respiratory Rate 16 16 Blood Pressure 119/52 L 129/59 L Pulse Oximetry 100 100 99 01/18/18 18:32 01/18/18 18:33 01/18/18 18:52 Temperature Pulse Rate 69 Respiratory Rate 16 Blood Pressure Pulse Oximetry 100 100 01/18/18 20:00 01/18/18 20:38 01/18/18 22:00 Temperature 99.0 F Pulse Rate 60 67 61 Respiratory Rate 24 17 Blood Pressure 101/51 L Pulse Oximetry 93 L 99 01/19/18 00:00 01/19/18 01:00 01/19/18 04:00 Temperature 97.7 F 97.9 F Pulse Rate 57 L 63 52 L Respiratory Rate 24 16 20 Blood Pressure 108/52 L 98/51 L Pulse Oximetry 95 94 L 93 L 01/19/18 04:02 Temperature Pulse Rate 56 L Respiratory Rate 16 Blood Pressure Pulse Oximetry 93 L Intake & Output 01/18/18 01/19/18 01/19/18 18:59 06:59 18:59 Intake Total 1450 / 1450 Balance 1450 / 1450 Weight 181.437 kg 124 kg Intake: IV 1450 / 1450 Versed Inj 50 mg In 50 ml @ 2 150 / 150 MG/HR 2 mls/hr IV.CONT TITRATE PRN Rx#:[id number] Diprivan 1000 mg/100 ml Inj 1, 200 / 200 000 mg In 100 ml @ 5 MCG/KG/MIN 5.443 mls/hr IV.CONT TITRATE PRN Rx#:[id number] NS Inj 1,000 ML @ 84 mls/hr IV. 1000 / 1000 CONT .[id number] [facility] Rx#:[id number] Azactam Inj 1,000 MG In NS Inj 100 / 100 100 ML @ 200 mls/hr IV.SIG Q8H [facility] Rx#:[id number] Other: Date of Last Bowel Movement 01/18/18 01/18/18 Result Diagrams: 01/19/18 11:02 01/19/18 03:44 Other Results: Laboratory Results - last 12 hr 01/18/18 01/18/18 01/19/18 18:40 21:04 00:05 Sodium Potassium Chloride Carbon Dioxide Anion Gap BUN Creatinine Estimated GFR POC Glucose 80 111 H Random Glucose Calcium Phosphorus Magnesium Total Bilirubin AST ALT Alkaline Phosphatase Total Protein Albumin TSH Nasal Screen MRSA (PCR) Mrsa detected 01/19/18 01/19/18 01/19/18 03:05 03:44 08:11 Sodium 135 L Potassium 5.0 Chloride 96 L Carbon Dioxide 29.4 Anion Gap 10 BUN 26 H Creatinine 0.97 Estimated GFR 75 L POC Glucose 138 H 162 H Random Glucose 115 H Calcium 8.5 Phosphorus 2.4 L Magnesium 2.1 Total Bilirubin 0.6 AST 23 ALT 26 Alkaline Phosphatase 79 Total Protein 6.8 D Albumin 2.8 L TSH 0.843 Nasal Screen MRSA (PCR) Imaging: Chest X-Ray 01/18/18 13:36 CONCLUSION: Small effusions and mild consolidation bilaterally. Objective Remarks: GENERAL: Patient is 77 yo intubated and sedated SKIN: Warm and dry. HEAD: Normocephalic. EYES: No scleral icterus. No injection or drainage. NECK: Supple, trachea midline. No JVD or lymphadenopathy. CARDIOVASCULAR: Regular rate and rhythm without murmurs, gallops, or rubs. RESPIRATORY: Breath sounds equal bilaterally. No accessory muscle use. GASTROINTESTINAL: Abdomen soft, non-tender, nondistended. MUSCULOSKELETAL: No cyanosis, or edema. Neuro: sedated Assessment and Plan - Assessment and Plan Plan: 1. Acute hypoxemic and hypercapnic respiratory failure. 2. Chronic obstructive pulmonary disease exacerbation. 3. Urinary tract infection. 4. Possible pneumonia. 5. History of hypertension. 6. Hypothyroidism. 7. Alzheimer's dementia. 8. Gastroesophageal reflux disease. 9. Hyperlipidemia. 10. Sepsis...improving 11 Morbid Obesity Plan Neuro: On propofol and Versed infusion for sedation. Daily sedation vacation. Monitor neuro status. Pulm: Continue with vent support and maintain sats > 92%. Bronchodilators, Solu-Medrol 60 mg IV every 8 hours. ICU vent bundle. Start CPAP trials and possible extubation today if aryan. CV: Monitor HR and BP and maintain MAP>65 mmHg. Continue Aspirin 81 mg daily. : Monitor renal function, I's and O's and electrolyte replacement per protocol. on NS at 75 mL an hour. GI: On Pepcid 20 mg IV every 12 hours. Start tube feeds today if remains intubated. ID: Continue abx (vancomycin and aztreonam). Followup on blood, sputum and urine cultures. Strep pneumoniae and Legionella urinary antigen pending Heme: Monitor CBC. Endo: SSI with Accu-Cheks for glycemic control as the patient will be on intravenous steroids. TSH level:0.84 GI prophylaxis with Pepcid 20 mg every 12 hours DVT prophylaxis- SCD's, Lovenox 40 mg subcutaneous daily. Level 3
[2018-01-19 11:50] LABS: Baso % (Auto) 0.1 % (0.0-2.0); Hematocrit 38.3 % (39.0-51.0); Hemoglobin 12.7 gm/dL (13.0-17.0); Lymph # (Auto) 0.5 th/mm3 (1.0-4.8); Lymph % (Auto) 4.8 % (9.0-44.0); Mean Corpuscular Hemoglobin 30.5 pg (27.0-34.0); Mean Corpuscular Volume 92.4 fL (80.0-100.0); Mean Platelet Volume 9.2 fL (7.0-11.0); Mono # (Auto) 0.3 th/mm3 (0.0-0.9); Mono % (Auto) 2.6 % (0.0-8.0); Neut # (Auto) 10.2 th/mm3 (1.8-7.7); Neut % (Auto) 92.5 % (16.0-70.0); Platelet Count 166 th/mm3 (150-450); Red Blood Count 4.15 mil/mm3 (4.50-5.90); Red Cell Distribution Width 14.3 % (11.6-17.2); White Blood Count 11.1 th/mm3 (4.0-11.0)
[2018-01-19 14:32] LABS: ABG Base Excess 4.7 mmol/L (-2-2); ABG PCO2 47 mmHg (38-42); ABG PO2 78 mmHG (61-120)
--- NOTE | 2018-01-19 14:44 | ECG ---
Date Performed: 01/18/2018 Time Performed: 15:59:20 PTAGE: 77 years EKG: ATRIAL FIBRILLATION LOW QRS VOLTAGE IN PRECORDIAL LEADS ABNORMAL RHYTHM ECG Since the previ ous tracing, no significant change noted NO PREVIOUS TRACING DOCTOR: Talat Osborne Interpretating Date/Time 01/19/2018 14:42:26
[2018-01-19] MEDS: Budesonide-Formoterol 160/4.5 MCG 6 GM Inhaler INH SCH ×2 (18:13→22:23)
[2018-01-19] MEDS: hydrALAZINE 50 MG Tablet PO SCH (18:14)
[2018-01-19] MEDS ORDERED: niCARdipine Inj 25 MG in Sodium Chlor 0.9% Inj 240 ML IV.CONT PRN (18:52)
[2018-01-19] MEDS: Enoxaparin Inj 40 MG/0.4 ML Syringe SQ SCH (19:45)
[2018-01-19] MEDS: Labetalol HCl Inj 100 MG/20 ML Vial IV.PUSH PRN (19:47)
[2018-01-20] MEDS: Insulin NovoLIN Regular Correctional Sugar Inj SQ SCH ×6 (01:08→20:24)
[2018-01-20] MEDS: Vancomycin Inj 1,600 MG in Sodium Chlor 0.9% Inj 500 ML IV.SIG SCH ×2 (01:09→12:33)
[2018-01-20] MEDS: Chlorhexidine Gluconate 2% 1 Pack (2 Cloths) TOPICAL SCH (03:26)
[2018-01-20] MEDS: MethylPREDNISolone Sod Succinate Inj 40 MG/ML Vial IV.PUSH SCH ×3 (03:27→20:24)
[2018-01-20] MEDS: Sod Chloride 0.9% Inj 1,000 ML IV.CONT SCH (05:50)
--- NOTE | 2018-01-20 08:43 | P.PNCC ---
Subjective Subjective Remarks/Hospital Course: Patient is a 77-year-old male, [facility] resident, with a past medical history of COPD, Alzheimer's dementia, hyperlipidemia, anxiety disorder, GERD, hypothyroidism, who presented to [facility] ED via EMS in respiratory distress. The patient was being treated for urinary tract infection. Per ED records, patient told paramedics that he wanted to be intubated while he was a DNR. Paramedics placed him on CPAP; however, due to decline in his respiratory status and altered mental status, he was intubated in the ED and placed on full mechanical ventilation. His laboratory data showed leukocytosis with a WBC of 14.0 and urinalysis was grossly positive for bacteria, leukocyte esterase. Chest x-ray post-intubation showed mild consolidation bilaterally and small effusions. In the ED, he was intubated with etomidate, Versed and placed on propofol and Versed drip for sedation. The patient was given aztreonam, Flagyl and vancomycin in the ED. 01/19 Patient is sedated with Versed and Diprivan. Afebrile. 01/20 Patient was extubated yesterday was on BIPAP overnight. Afebrile. Objective Vital Signs / I&O: Vital Signs 01/19/18 09:00 01/19/18 10:00 01/19/18 11:00 Temperature Pulse Rate 54 L 63 6 L Respiratory Rate 25 H 15 30 H Blood Pressure 127/60 Pulse Oximetry 95 96 01/19/18 11:47 01/19/18 12:00 01/19/18 12:11 Temperature 98.3 F Pulse Rate 59 L Respiratory Rate 24 2 L Blood Pressure 160/67 H Pulse Oximetry 94 L 01/19/18 14:00 01/19/18 14:11 01/19/18 16:00 Temperature 97.7 F Pulse Rate 65 6 L 75 Respiratory Rate 25 H 23 24 Blood Pressure 152/73 H 170/69 H Pulse Oximetry 96 93 L 01/19/18 18:00 01/19/18 20:00 01/19/18 22:15 Temperature 97.5 F L Pulse Rate 78 76 Respiratory Rate 20 39 H Blood Pressure 175/71 H 157/67 H Pulse Oximetry 92 L 94 L 95 01/20/18 00:00 01/20/18 00:34 01/20/18 00:35 Temperature 96.9 F L Pulse Rate 66 70 Respiratory Rate 22 23 Blood Pressure 144/65 H Pulse Oximetry 94 L 96 01/20/18 04:00 01/20/18 04:47 Temperature 96.7 F L Pulse Rate 60 73 Respiratory Rate 22 24 Blood Pressure 151/69 H Pulse Oximetry 98 100 Intake & Output 01/19/18 01/20/18 01/20/18 18:59 06:59 18:59 Intake Total 716 / 716 1000 / 1000 Balance 716 / 716 1000 / 1000 Weight 126 kg Intake: IV 716 / 716 1000 / 1000 NS Inj 1,000 ML @ 50 mls/hr IV. 1000 / 1000 CONT .Q20H [facility] Rx#:[id number] Azactam Inj 1,000 MG In NS Inj 200 / 200 100 ML @ 200 mls/hr IV.SIG Q8H [facility] Rx#:[id number] Vancomycin Inj 1,600 MG In NS 516 / 516 Inj 500 ML @ 250 mls/hr IV.SIG Q12H BRETT Rx#:[id number] Other: Date of Last Bowel Movement 01/18/18 01/18/18 Result Diagrams: 01/19/18 11:02 01/19/18 03:44 Other Results: Laboratory Results - last 12 hr 01/20/18 01/20/18 01:04 02:53 POC Glucose 178 H 138 H Laboratory Results - last 12 hr 01/20/18 01/20/18 01:04 02:53 POC Glucose 178 H 138 H Imaging: Chest X-Ray 01/18/18 13:36 CONCLUSION: Small effusions and mild consolidation bilaterally. Objective Remarks: GENERAL: Patient is 77 yo lying in bed in NAD SKIN: Warm and dry. HEAD: Normocephalic. EYES: No scleral icterus. No injection or drainage. NECK: Supple, trachea midline. No JVD or lymphadenopathy. CARDIOVASCULAR: Regular rate and rhythm without murmurs, gallops, or rubs. RESPIRATORY: Breath sounds equal bilaterally. No accessory muscle use. GASTROINTESTINAL: Abdomen soft, non-tender, nondistended. MUSCULOSKELETAL: No cyanosis, or edema. Neuro: Awake Assessment and Plan - Assessment and Plan Plan: 1. Acute hypoxemic and hypercapnic respiratory failure. 2. Chronic obstructive pulmonary disease exacerbation. 3. Urinary tract infection. 4. Possible pneumonia. 5. History of hypertension. 6. Hypothyroidism. 7. Alzheimer's dementia. 8. Gastroesophageal reflux disease. 9. Hyperlipidemia. 10. Sepsis...improving 11 Morbid Obesity Plan Neuro: Monitor neuro status and avoid sedatives D Pulm: Continue with oxygen and maintain sats > 92%. Bronchodilators, Solu-Medrol 60 mg IV every 8 hours, Symbicort Extubated 01/19, BIPAP nocturnally and PRN CV: Monitor HR and BP and maintain MAP>65 mmHg. Continue Aspirin 81 mg daily. On Hydralazine 50mg Q8 : Monitor renal function, I's and O's and electrolyte replacement per protocol. d/c IVF GI: On Pepcid 20 mg IV every 12 hours. Speech eval, diet per speech ID: Continue abx (vancomycin and aztreonam). urine cultures: GNR. BC 01/18: NGTD 01/19: Sputum cx: Pending Strep pneumoniae and Legionella urinary antigen negative Heme: Monitor CBC. Endo: SSI with Accu-Cheks for glycemic control . TSH level:0.84 GI prophylaxis with Pepcid 20 mg every 12 hours DVT prophylaxis- SCD's, Lovenox 40 mg subcutaneous daily. Level 3
[2018-01-20] MEDS: Famotidine PF Inj 20 MG/2 ML Vial IV.PUSH SCH ×2 (09:58→20:23)
[2018-01-20] MEDS: Budesonide-Formoterol 160/4.5 MCG 6 GM Inhaler INH SCH ×2 (09:59→20:24)
[2018-01-20] MEDS: hydrALAZINE 50 MG Tablet PO SCH ×3 (10:14→18:15)
[2018-01-20] MEDS ORDERED: Pharmacy Ordered Lab Info OTHER ONE (11:45)
[2018-01-20 14:27] LABS: Calcium 7.7 mg/dL (8.5-10.1); Carbon Dioxide 26.3 meq/L (21.0-32.0); Magnesium 2.4 mg/dL (1.5-2.5); Phosphorus 5.9 mg/dL (2.5-4.9)
[2018-01-20 14:28] LABS: Potassium 4.3 meq/L (3.5-5.1)
[2018-01-20] MEDS: Enoxaparin Inj 40 MG/0.4 ML Syringe SQ SCH (20:24)
[2018-01-20 21:29] LABS: Baso # (Auto) 0.1 th/mm3 (0.0-0.2); Baso % (Auto) 0.8 % (0.0-2.0); Eos % (Auto) 0.1 % (0.0-4.0); Hematocrit 39.6 % (39.0-51.0); Hemoglobin 13.4 gm/dL (13.0-17.0); Lymph # (Auto) 0.6 th/mm3 (1.0-4.8); Lymph % (Auto) 3.4 % (9.0-44.0); Mean Corpuscular HGB Conc 33.7 % (32.0-36.0); Mean Corpuscular Hemoglobin 31.2 pg (27.0-34.0); Mean Corpuscular Volume 92.7 fL (80.0-100.0); Mean Platelet Volume 9.3 fL (7.0-11.0); Mono # (Auto) 0.8 th/mm3 (0.0-0.9); Mono % (Auto) 4.6 % (0.0-8.0); Neut # (Auto) 16.4 th/mm3 (1.8-7.7); Neut % (Auto) 91.1 % (16.0-70.0); Platelet Count 196 th/mm3 (150-450); Red Blood Count 4.28 mil/mm3 (4.50-5.90); Red Cell Distribution Width 14.9 % (11.6-17.2); White Blood Count 18.1 th/mm3 (4.0-11.0)
[2018-01-21] MEDS: Insulin NovoLIN Regular Correctional Sugar Inj SQ SCH ×6 (00:09→20:05)
[2018-01-21] MEDS: MethylPREDNISolone Sod Succinate Inj 40 MG/ML Vial IV.PUSH SCH ×3 (05:05→20:05)
[2018-01-21] MEDS: Chlorhexidine Gluconate 2% 1 Pack (2 Cloths) TOPICAL SCH (05:05)
[2018-01-21] MEDS: hydrALAZINE 50 MG Tablet PO SCH ×3 (08:41→19:11)
[2018-01-21] MEDS: Famotidine PF Inj 20 MG/2 ML Vial IV.PUSH SCH ×2 (08:52→20:06)
[2018-01-21] MEDS: Budesonide-Formoterol 160/4.5 MCG 6 GM Inhaler INH SCH ×2 (08:53→20:05)
--- NOTE | 2018-01-21 09:06 | P.PNCC ---
Subjective Subjective Remarks/Hospital Course: Patient is a 77-year-old male, [facility] resident, with a past medical history of COPD, Alzheimer's dementia, hyperlipidemia, anxiety disorder, GERD, hypothyroidism, who presented to [facility] ED via EMS in respiratory distress. The patient was being treated for urinary tract infection. Per ED records, patient told paramedics that he wanted to be intubated while he was a DNR. Paramedics placed him on CPAP; however, due to decline in his respiratory status and altered mental status, he was intubated in the ED and placed on full mechanical ventilation. His laboratory data showed leukocytosis with a WBC of 14.0 and urinalysis was grossly positive for bacteria, leukocyte esterase. Chest x-ray post-intubation showed mild consolidation bilaterally and small effusions. In the ED, he was intubated with etomidate, Versed and placed on propofol and Versed drip for sedation. The patient was given aztreonam, Flagyl and vancomycin in the ED. 01/19 Patient is sedated with Versed and Diprivan. Afebrile. 01/20 Patient was extubated yesterday was on BIPAP overnight. Afebrile. 01/21 Patient is lying in bed in [facility]. Objective Vital Signs / I&O: Vital Signs 01/20/18 09:55 01/20/18 10:00 01/20/18 12:00 Temperature 97.7 F Pulse Rate 66 66 76 Respiratory Rate 33 H 20 Blood Pressure 180/128 H Pulse Oximetry 98 92 L 01/20/18 12:38 01/20/18 12:41 01/20/18 14:00 Temperature Pulse Rate 76 72 Respiratory Rate 32 H Blood Pressure Pulse Oximetry 97 01/20/18 15:01 01/20/18 16:00 01/20/18 16:31 Temperature 97.9 F Pulse Rate 65 73 Respiratory Rate 15 18 Blood Pressure 116/55 L Pulse Oximetry 98 97 01/20/18 18:00 01/20/18 20:00 01/20/18 20:45 Temperature 98.4 F Pulse Rate 78 76 74 Respiratory Rate 28 H 20 Blood Pressure 157/74 H Pulse Oximetry 92 L 2 L 01/20/18 20:52 01/20/18 22:00 01/20/18 23:38 Temperature Pulse Rate 73 58 L Respiratory Rate 25 H Blood Pressure Pulse Oximetry 93 L 01/21/18 00:00 01/21/18 01:01 01/21/18 02:00 Temperature 98.1 F Pulse Rate 71 69 Respiratory Rate 35 H Blood Pressure 140/62 Pulse Oximetry 94 L 96 01/21/18 04:00 01/21/18 04:21 01/21/18 05:04 Temperature 98.5 F Pulse Rate 59 L 64 Respiratory Rate 22 21 Blood Pressure 127/60 Pulse Oximetry 98 93 L 01/21/18 06:00 01/21/18 08:03 Temperature Pulse Rate 57 L 64 Respiratory Rate 1 L Blood Pressure Pulse Oximetry 96 Intake & Output 01/20/18 01/21/18 01/21/18 18:59 06:59 18:59 Intake Total 250 / 250 1876 / 1876 Output Total 750 / 750 250 / 250 Balance -500 / -500 1626 / 1626 Weight 125.5 kg Intake: IV 200 / 200 1876 / 1876 NS Inj 1,000 ML @ 50 mls/hr IV. 1000 / 1000 CONT .Q20H [facility] Rx#:[id number] Azactam Inj 1,000 MG In NS Inj 200 / 200 100 / 100 100 ML @ 200 mls/hr IV.SIG Q8H [facility] Rx#:[id number] Sodium Phosphate Inj 30 MMOL In 260 / 260 NS Inj 250 ML @ 42 mls/hr IV. SIG UNSCH PRN Rx#:[id number] Vancomycin Inj 1,600 MG In NS 516 / 516 Inj 500 ML @ 250 mls/hr IV.SIG Q12H [facility] Rx#:[id number] Oral 50 / 50 Output: Urine Amount (Stoma) 750 / 750 250 / 250 Pre-Hospital: Continent 750 / 750 250 / 250 Urostomy Other: Date of Last Bowel Movement 01/18/18 01/18/18 Result Diagrams: 01/20/18 05:30 01/20/18 05:30 Other Results: Laboratory Results - last 12 hr 01/20/18 01/21/18 01/21/18 05:30 00:08 05:04 WBC 18.1 H D RBC 4.28 L Hgb 13.4 Hct 39.6 MCV 92.7 MCH 31.2 MCHC 33.7 RDW 14.9 Plt Count 196 MPV 9.3 Neut % (Auto) 91.1 H Lymph % (Auto) 3.4 L [place] % (Auto) 4.6 Eos % (Auto) 0.1 Baso % (Auto) 0.8 Neut # (Auto) 16.4 H Lymph # (Auto) 0.6 L [place] # (Auto) 0.8 Eos # (Auto) 0.0 Baso # (Auto) 0.1 WBC Differential . Differential Comment Auto diff final POC Glucose 137 H 140 H Imaging: Chest X-Ray 01/18/18 13:36 CONCLUSION: Small effusions and mild consolidation bilaterally. Objective Remarks: GENERAL: Patient is 77 yo lying in bed in NAD SKIN: Warm and dry. HEAD: Normocephalic. EYES: No scleral icterus. No injection or drainage. NECK: Supple, trachea midline. No JVD or lymphadenopathy. CARDIOVASCULAR: Regular rate and rhythm without murmurs, gallops, or rubs. RESPIRATORY: Breath sounds equal bilaterally. No accessory muscle use. GASTROINTESTINAL: Abdomen soft, non-tender, nondistended. MUSCULOSKELETAL: No cyanosis, or edema. Neuro: Awake Assessment and Plan - Assessment and Plan Plan: 1. Acute hypoxemic and hypercapnic respiratory failure. 2. Chronic obstructive pulmonary disease exacerbation. 3. Urinary tract infection. 4. Possible pneumonia. 5. History of hypertension. 6. Hypothyroidism. 7. Alzheimer's dementia. 8. Gastroesophageal reflux disease. 9. Hyperlipidemia. 10. Sepsis...improving 11 Morbid Obesity Plan Neuro: Monitor neuro status and avoid sedatives Pulm: Continue with oxygen and maintain sats > 92%. Bronchodilators, decrease Solu-Medrol 40 mg IV Q12, Symbicort Extubated 01/19, BIPAP nocturnally and PRN Check CXR CV: Monitor HR and BP and maintain MAP>65 mmHg. Continue Aspirin 81 mg daily. On Hydralazine 50mg Q8 : Monitor renal function, I's and O's and electrolyte replacement per protocol. GI: On Pepcid 20 mg IV every 12 hours. On Po diet ID: Continue abx (vancomycin and aztreonam). urine cultures: Morganella Morganii, BC 01/18: NGTD 01/19: Sputum cx: normal resp eva Strep pneumoniae and Legionella urinary antigen negative Heme: Monitor CBC. Endo: SSI with Accu-Cheks for glycemic control . TSH level:0.84 GI prophylaxis with Pepcid 20 mg every 12 hours DVT prophylaxis- SCD's, Lovenox 40 mg subcutaneous daily. Will sign off and transfer care to [facility] Level 2
--- NOTE | 2018-01-21 10:00 | XR ---
EXAM DATE: 01/21/2018 9:42 AM EDT AGE/SEX: 77 years / Male INDICATIONS: SOB. Possible pneumonia. CLINICAL DATA: This is the patient's subsequent encounter. Patient reports that signs and symptoms h ave been present for 3 days and indicates a pain score of 0/10. MEDICAL/SURGICAL HISTORY: . Carcinoma, prostate. CVA. Afib. . Prostatectomy. Hernia repair. P artial colon removal. Urostomy. Bladder removed. [place] [facility] [place]. . FINDINGS: A single AP view of the chest demonstrates cardiomegaly with bibasilar densities. Lungs are better ae rated. Endotracheal tube and nasogastric tube removed.. The cardiomediastinal contours are unremarka ble. Osseous structures are intact. CONCLUSION: Cardiomegaly with improving bibasilar densities. Electronically signed by: Lul Diggs MD 01/21/2018 9:58 AM EDT
[2018-01-21 14:19] LABS: Baso % (Auto) 0.2 % (0.0-2.0); Eos % (Auto) 0.1 % (0.0-4.0); Hematocrit 42.6 % (39.0-51.0); Lymph # (Auto) 0.5 th/mm3 (1.0-4.8); Lymph % (Auto) 2.6 % (9.0-44.0); Mean Corpuscular HGB Conc 32.8 % (32.0-36.0); Mean Corpuscular Hemoglobin 30.8 pg (27.0-34.0); Mean Corpuscular Volume 93.8 fL (80.0-100.0); Mean Platelet Volume 8.7 fL (7.0-11.0); Mono # (Auto) 1.2 th/mm3 (0.0-0.9); Mono % (Auto) 5.8 % (0.0-8.0); Neut # (Auto) 19.2 th/mm3 (1.8-7.7); Neut % (Auto) 91.3 % (16.0-70.0); Platelet Count 234 th/mm3 (150-450); Red Blood Count 4.54 mil/mm3 (4.50-5.90); Red Cell Distribution Width 15.3 % (11.6-17.2)
[2018-01-21 14:51] LABS: Calcium 8.6 mg/dL (8.5-10.1); Carbon Dioxide 26.7 meq/L (21.0-32.0); Magnesium 2.9 mg/dL (1.5-2.5); Phosphorus 2.8 mg/dL (2.5-4.9)
[2018-01-21 14:52] LABS: Vancomycin,Random 24.6 Comment
[2018-01-21] MEDS: Labetalol HCl Inj 100 MG/20 ML Vial IV.PUSH PRN (17:12)
[2018-01-21] MEDS: Enoxaparin Inj 40 MG/0.4 ML Syringe SQ SCH (20:04)
[2018-01-22] MEDS: Insulin NovoLIN Regular Correctional Sugar Inj SQ SCH ×6 (04:06→20:47)
[2018-01-22] MEDS: Chlorhexidine Gluconate 2% 1 Pack (2 Cloths) TOPICAL SCH (04:06)
--- NOTE | 2018-01-22 07:24 | P.PNCC ---
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 The patient was being treated for urinary tract infection. Per ED records, patient told paramedics that he wanted to be intubated while he was a DNR. Paramedics placed him on CPAP; however, due to decline in his respiratory status and altered mental status, he was intubated in the ED and placed on full mechanical ventilation. His laboratory data showed leukocytosis with a WBC of 14.0 and urinalysis was grossly positive for bacteria, leukocyte esterase. Chest x-ray post-intubation showed mild consolidation bilaterally and small effusions. In the ED, he was intubated with etomidate, Versed and placed on propofol and Versed drip for sedation. The patient was given aztreonam, Flagyl and vancomycin in the ED. 01/19 Patient is sedated with Versed and Diprivan. Afebrile. 01/20 Patient was extubated yesterday was on BIPAP overnight. Afebrile. 01/21 Patient is lying in bed in [facility]. 01/22 Patient was bradycardic in his his 30's while asleep, EKG showed afib with slow vent. response HR 48, BP:157/67. Awake on BIPAP overnight. Afebrile. Objective Vital Signs / I&O: Vital Signs 01/21/18 08:00 01/21/18 08:03 01/21/18 10:00 Temperature 98.1 F Pulse Rate 67 64 83 Respiratory Rate 23 1 L Blood Pressure 139/65 Pulse Oximetry 95 96 01/21/18 11:46 01/21/18 12:00 01/21/18 14:00 Temperature 98.8 F Pulse Rate 76 82 92 H Respiratory Rate 28 H 31 H Blood Pressure 148/65 H Pulse Oximetry 98 01/21/18 16:00 01/21/18 16:10 01/21/18 18:00 Temperature 97.9 F Pulse Rate 79 88 67 Respiratory Rate 24 28 H Blood Pressure 167/70 H Pulse Oximetry 94 L 01/21/18 20:00 01/21/18 20:51 01/21/18 20:54 Temperature 98.8 F Pulse Rate 64 56 L Respiratory Rate 30 H 24 Blood Pressure 140/61 Pulse Oximetry 95 94 L 01/21/18 21:20 01/21/18 22:00 01/22/18 00:00 Temperature 98.6 F Pulse Rate 53 L 53 L Respiratory Rate 22 Blood Pressure 140/63 Pulse Oximetry 93 L 96 01/22/18 00:40 01/22/18 02:00 01/22/18 04:00 Temperature 98.9 F Pulse Rate 61 48 L 56 L Respiratory Rate 24 17 Blood Pressure 157/67 H Pulse Oximetry 95 97 01/22/18 04:12 01/22/18 06:00 Temperature Pulse Rate 60 69 Respiratory Rate 22 Blood Pressure Pulse Oximetry 98 Intake & Output 01/21/18 01/22/18 01/22/18 18:59 06:59 18:59 Intake Total 1450 / 1450 100 / 100 Output Total 650 / 650 Balance 800 / 800 100 / 100 Intake: IV 750 / 750 100 / 100 Azactam Inj 1,000 MG In NS Inj 200 / 200 100 / 100 100 ML @ 200 mls/hr IV.SIG Q8H [facility] Rx#:[id number] Oral 700 / 700 Output: Urine Amount (Stoma) 650 / 650 Pre-Hospital: Continent 650 / 650 Urostomy Other: Date of Last Bowel Movement 01/18/18 01/18/18 Result Diagrams: 01/22/18 13:58 01/22/18 13:28 Other Results: Laboratory Results - last 12 hr 01/21/18 01/22/18 01/22/18 19:50 00:54 04:04 POC Glucose 166 H 139 H 142 H Imaging: Chest X-Ray 01/21/18 00:00 CONCLUSION: Cardiomegaly with improving bibasilar densities. Objective Remarks: GENERAL: Patient is 77 yo lying in bed in NAD SKIN: Warm and dry. HEAD: Normocephalic. EYES: No scleral icterus. No injection or drainage. NECK: Supple, trachea midline. No JVD or lymphadenopathy. CARDIOVASCULAR: Regular rate and rhythm without murmurs, gallops, or rubs. RESPIRATORY: Breath sounds equal bilaterally. No accessory muscle use. GASTROINTESTINAL: Abdomen soft, non-tender, nondistended. MUSCULOSKELETAL: No cyanosis, or edema. Neuro: Awake Assessment and Plan - Assessment and Plan Plan: 1. Acute hypoxemic and hypercapnic respiratory failure. 2. Chronic obstructive pulmonary disease exacerbation. 3. Urinary tract infection. 4. Possible pneumonia. 5. History of hypertension. 6. Hypothyroidism. 7. Alzheimer's dementia. 8. Gastroesophageal reflux disease. 9. Hyperlipidemia. 10. Sepsis...improving 11 Morbid Obesity 12 Afib with slow vent. response. Plan Neuro: Monitor neuro status and avoid sedatives Pulm: Continue with oxygen and maintain sats > 92%. Bronchodilators, Solu-Medrol 40 mg IV Q12, Symbicort Extubated 01/19, BIPAP nocturnally and PRN CXR 01/21: Improving bibasilar densities CV: Monitor HR and BP and maintain MAP>65 mmHg. Continue Aspirin 81 mg daily. On Hydralazine 50mg Q8 Check 2D echo to eval LV function. Cards eval. : Monitor renal function, I's and O's and electrolyte replacement per protocol. GI: On Pepcid 20 mg IV every 12 hours. On Po diet ID: Continue abx (vancomycin and aztreonam). urine cultures: Morganella Morganii, BC 01/18: NGTD 01/19: Sputum cx: normal resp eva Strep pneumoniae and Legionella urinary antigen negative Heme: Monitor CBC. Endo: SSI with Accu-Cheks for glycemic control . TSH level:0.84 GI prophylaxis with Pepcid 20 mg every 12 hours DVT prophylaxis- SCD's, Lovenox 40 mg subcutaneous daily. Will sign off and transfer care to [facility] Level 2
[2018-01-22] MEDS: Budesonide-Formoterol 160/4.5 MCG 6 GM Inhaler INH SCH (09:01)
[2018-01-22] MEDS: MethylPREDNISolone Sod Succinate Inj 40 MG/ML Vial IV.PUSH SCH ×2 (09:02→20:38)
[2018-01-22] MEDS: Famotidine PF Inj 20 MG/2 ML Vial IV.PUSH SCH ×2 (09:04→20:38)
[2018-01-22] MEDS: hydrALAZINE 50 MG Tablet PO SCH ×3 (09:05→17:44)
--- NOTE | 2018-01-22 09:26 | P.CONCA ---
History of Present Illness Primary Care Provider: UNKNOWN [facility] - History History Provided By: Medical Record - Medical History Medical History: Medical History (Last Reviewed 01/21/18 @ 12:39 by Foreign Campbell) Alzheimer disease Anxiety COPD (chronic obstructive pulmonary disease) Dysphagia GERD (gastroesophageal reflux disease) Hernia Hyperlipemia Hypertension Hypothyroidism MRSA (methicillin resistant Staphylococcus aureus) Sepsis UTI (urinary tract infection) - Surgical History Surgical History: Surgical History (Last Reviewed 01/21/18 @ 12:40 by Foreign Campbell) History of urostomy - Tobacco History Tobacco Use In Past 30 Days: No (UTO) Smoking Status: Smoker, status unknown Tobacco Type: Cigarettes - Alcohol History How Often Do You Have a Drink Containing Alcohol: Unable to Obtain - Substance Use History Substance History: Unable to Obtain - Travel History Recent Travel in the [place] Within the Last 8 Weeks: No Recent Travel Out of the Country Within the Last 8 Weeks: No - Immunization History Tetanus Immunization: Unable to Assess Hx Influenza Vaccine This Season: Unable to Assess Medications and Allergies Active Medications: Active Medications Al Hydroxide/Mg Hydroxide (Milk Of Mick Koch) 30 ml PO Q12H PRN PRN Reason: Mild Constipation Albuterol (Duoneb Neb (Rodolfo)) 1 ampul NEB Q4HR NEB [facility] Last Admin: 01/22/18 09:11 Dose: 1 ampul Albuterol (Duoneb Neb (Prn)) 1 ampul NEB Q2HR NEB PRN PRN Reason: WHEEZING Aspirin (Ecotrin) 81 mg PO DAILY [facility] Last Admin: 01/22/18 09:04 Dose: 81 mg Bisacodyl (Dulcolax Supp) 10 mg RECTAL DAILY PRN PRN Reason: SEVERE CONSITIPATION Budesonide/Formoterol Fumarate (Symbicort 160/4.5 Mcg Inh) 2 puff INH BID [facility] Last Admin: 01/22/18 09:01 Dose: 2 puff Chlorhexidine Gluconate (Chlorhexidine 2% Cloth) 3 pack TOPICAL DAILY@0400 [facility] Stop: 01/24/18 03:59 Last Admin: 01/22/18 04:06 Dose: 3 pack Chlorhexidine Gluconate (Chlorhexidine 2% Cloth) 3 pack TOPICAL DAILY@0400 PRN PRN Reason: Extra cloth needed Stop: 01/24/18 03:59 Dextrose (D50w Vial) 50 ml IV.PUSH UNSCH PRN PRN Reason: PER HYPOGLYCEMIA PROTOCOL Enoxaparin Sodium (Lovenox Inj) 40 mg SQ Q24H [facility] Last Admin: 01/21/18 20:04 Dose: 40 mg Famotidine (Pepcid Pf Inj) 20 mg IV.PUSH Q12HR [facility] Last Admin: 01/22/18 09:04 Dose: 20 mg Glucagon (Glucagon Inj) 1 mg OTHER PRN PRN PRN Reason: for Hypoglycemia Protocol Hydralazine HCl (Apresoline) 50 mg PO TID [facility] Last Admin: 01/22/18 09:05 Dose: 50 mg Pharmacy Profile Note (Vancomycin Consult Pharmacy) 0 mls @ 0 mls/hr OTHER UNSCH [facility] Aztreonam 1,000 mg/ Sodium (Chloride) 100 mls @ 200 mls/hr IV.SIG Q8H [facility] Last Admin: 01/22/18 09:04 Dose: 200 mls/hr Vancomycin HCl 1,600 mg/ (Sodium Chloride) 516 mls @ 250 mls/hr IV.SIG Q12H [facility] Last Infusion: 01/20/18 19:00 Dose: Infused Magnesium Sulfate Inj 2 gm/ (Sodium Chloride) 100 mls @ 50 mls/hr IV.SIG UNSCH PRN PRN Reason: For Magnesium 1.2 - 1.6 mg/dL Potassium Chloride (Kcl 40 Meq Premix Inj) 40 meq in 100 mls @ 25 mls/hr IV.SIG Q2H PRN PRN Reason: For Potassium 2.8 - 3.2 mEq/L Potassium Chloride (Kcl 20 Meq Premix Inj) 20 meq in 100 mls @ 50 mls/hr IV.SIG Q2H PRN PRN Reason: For Potassium 3.3 - 3.5 mEq/L Potassium Chloride (Kcl 40 Meq Premix Inj) 40 meq in 100 mls @ 25 mls/hr IV.SIG UNSCH PRN PRN Reason: For Potassium 3.3 - 3.5 mEq/L Potassium Chloride (Kcl 20 Meq Premix Inj) 20 meq in 100 mls @ 50 mls/hr IV.SIG Q2H PRN PRN Reason: For Potassium 2.8 - 3.2 mEq/L Potassium Phosphate 30 mmol/ (Sodium Chloride) 260 mls @ 42 mls/hr IV.SIG UNSCH PRN PRN Reason: SEE LABEL COMMENTS Sodium Phosphate 30 mmol/ (Sodium Chloride) 260 mls @ 42 mls/hr IV.SIG UNSCH PRN PRN Reason: For Phosphorus < 2.5 mg/dL Last Infusion: 01/20/18 19:00 Dose: Infused Magnesium Sulfate Inj 4 gm/ (Sodium Chloride) 100 mls @ 50 mls/hr IV.SIG UNSCH PRN PRN Reason: For Magnesium 0.9 - 1.1 mg/dL Nicardipine HCl 25 mg/ Sodium (Chloride) 250 mls @ 50 mls/hr IV.CONT TITRATE PRN; Protocol PRN Reason: Per Protocol Insulin Human Regular (Novolin R Correctional Sugar Inj) 0 units SQ Q4HR [facility]; Protocol Last Admin: 01/22/18 04:06 Dose: Not Given Lactulose (Lactulose Liq) 30 ml PO DAILY PRN PRN Reason: SEVERE CONSITIPATION Magnesium Oxide (Mag-Ox) 800 mg PO UNSCH PRN PRN Reason: For Magnesium 1.2 - 1.6 mg/dL Methylprednisolone Sodium Succinate (Solumedrol Inj) 40 mg IV.PUSH Q12HR [facility] Last Admin: 01/22/18 09:02 Dose: 40 mg Nitroglycerin (Nitro-Bid 2% Oint) 2 inch TOPICAL Q6HR PRN PRN Reason: SBP>160, DBP>90 Potassium Bicarb/Potassium Chloride (K-Lyte Cl Eff) 50 meq PO UNSCH PRN PRN Reason: For Potassium 3.3 - 3.5 mEq/L Potassium Phosphate (K-Phos Original) 2,000 mg PO Q4H PRN PRN Reason: Phosphorus Less Than 2.5 mg/dL Potassium Phosphate (K-Phos Original) 2,000 mg PO UNSCH PRN PRN Reason: SEE LABEL COMMENTS Sennosides (Senokot) 17.2 mg PO Q12H PRN PRN Reason: Moderate Constipation Allergies Allergy/AdvReac Type Severity Reaction Status Date / Time penicillin G Allergy Severe as a child Verified 01/18/18 17:33 Home Medications Medication Instructions Recorded Confirmed Type acetaminophen [Tylenol] 650 mg PO Q4H PRN 01/18/18 01/18/18 History albuterol sulfate 2.5 mg INHALATION Q2HR PRN 01/18/18 01/18/18 History alum-mag hydroxide-simeth [Mag-Al 10 ml PO QID 01/18/18 01/18/18 History Plus Extra Strength] aspirin 81 mg PO DAILY 01/18/18 01/18/18 History atorvastatin 40 mg PO HS 01/18/18 01/18/18 History budesonide 0.5 mg INHALATION Q12H 01/18/18 01/18/18 History ipratropium-albuterol 3 ml INHALATION QID 01/18/18 01/18/18 History levothyroxine 50 mcg PO DAILY 01/18/18 01/18/18 History lisinopril 10 mg PO DAILY 01/18/18 01/18/18 History loperamide [Imodium A-D] 2 mg PO DIRECTED PRN 01/18/18 01/18/18 History loratadine [Claritin] 10 mg PO DAILY 01/18/18 01/18/18 History lorazepam [Ativan] 0.5 mg PO TID 01/18/18 01/18/18 History magnesium hydroxide [Milk of 30 ml PO Q6HR PRN 01/18/18 01/18/18 History Magnesia] memantine-donepezil [Namzaric] 2 cap PO DAILY 01/18/18 01/18/18 History montelukast [Singulair] 10 mg PO QPM 01/18/18 01/18/18 History polyethylene glycol 3350 [Miralax] 17 gm PO DAILY PRN 01/18/18 01/18/18 History polyvinyl alcohol 2 drp EACH EYE Q4HR PRN 01/18/18 01/18/18 History quetiapine [Seroquel] 50 mg PO BID 01/18/18 01/18/18 History Exam Vital signs: Vital Signs 01/21/18 10:00 01/21/18 11:46 01/21/18 12:00 Temperature 98.8 F Pulse Rate 83 76 82 Respiratory Rate 28 H 31 H Blood Pressure 148/65 H Pulse Oximetry 98 01/21/18 14:00 01/21/18 16:00 01/21/18 16:10 Temperature 97.9 F Pulse Rate 92 H 79 88 Respiratory Rate 24 28 H Blood Pressure 167/70 H Pulse Oximetry 94 L 01/21/18 18:00 01/21/18 20:00 01/21/18 20:51 Temperature 98.8 F Pulse Rate 67 64 56 L Respiratory Rate 30 H 24 Blood Pressure 140/61 Pulse Oximetry 95 08/12/18 20:54 01/21/18 21:20 01/21/18 22:00 Temperature Pulse Rate 53 L Respiratory Rate Blood Pressure Pulse Oximetry 94 L 93 L 01/22/18 00:00 01/22/18 00:40 01/22/18 02:00 Temperature 98.6 F Pulse Rate 53 L 61 48 L Respiratory Rate 22 24 Blood Pressure 140/63 Pulse Oximetry 96 95 01/22/18 04:00 01/22/18 04:12 01/22/18 06:00 Temperature 98.9 F Pulse Rate 56 L 60 69 Respiratory Rate 17 22 Blood Pressure 157/67 H Pulse Oximetry 97 98 01/22/18 07:00 01/22/18 08:00 Temperature Pulse Rate 73 Respiratory Rate 18 Blood Pressure Pulse Oximetry 93 L Intake & Output 01/21/18 01/22/18 01/22/18 18:59 06:59 18:59 Intake Total 1450 / 1450 100 / 100 Output Total 650 / 650 525 / 525 Balance 800 / 800 -425 / -425 Weight 125.5 kg Intake: IV 750 / 750 100 / 100 Azactam Inj 1,000 MG In NS Inj 200 / 200 100 / 100 100 ML @ 200 mls/hr IV.SIG Q8H [facility] Rx#:[id number] Oral 700 / 700 Output: Urine Amount (Stoma) 650 / 650 525 / 525 Pre-Hospital: Continent 650 / 650 525 / 525 Urostomy Other: Date of Last Bowel Movement 01/18/18 01/18/18 Results 01/21/18 14:10 01/21/18 14:10 CBC 01/21/18 Range/Units 14:10 WBC 21.0 H (4.0-11.0) th/mm3 RBC 4.54 (4.50-5.90) mil/mm3 Hgb 14.0 (13.0-17.0) gm/dL Hct 42.6 (39.0-51.0) % Plt Count 234 (150-450) th/mm3 Neut # (Auto) 19.2 H (1.8-7.7) th/mm3 Lymph # (Auto) 0.5 L (1.0-4.8) th/mm3 [place] # (Auto) 1.2 H (0.0-0.9) th/mm3 Eos # (Auto) 0.0 (0.0-0.4) th/mm3 Baso # (Auto) 0.0 (0.0-0.2) th/mm3 Comprehensive Metabolic Panel 01/21/18 Range/Units 14:10 Sodium 141 (136-145) meq/L Potassium 4.0 (3.5-5.1) meq/L Chloride 103 (98-107) meq/L Carbon Dioxide 26.7 (21.0-32.0) meq/L BUN 56 H (7-18) mg/dL Creatinine 1.37 H (0.60-1.30) mg/dL Calcium 8.6 D (8.5-10.1) mg/dL Intake and Output 01/21/18 01/22/18 01/22/18 22:59 06:59 14:59 Intake Total 800 / 800 100 / 100 Output Total 650 / 650 525 / 525 Balance 150 / 150 -425 / -425 Intake: IV 100 / 100 100 / 100 Azactam Inj 1,000 MG In NS Inj 100 / 100 100 / 100 100 ML @ 200 mls/hr IV.SIG Q8H [facility] Rx#:[id number] Oral 700 / 700 Output: Urine Amount (Stoma) 650 / 650 525 / 525 Pre-Hospital: Continent 650 / 650 525 / 525 Urostomy Other: Date of Last Bowel Movement 01/18/18 01/18/18 Weight 125.5 kg Assessment and Plan - Plan See dictated note. In summary, would hold AV gabi blockers. Afib and shortness of breath likely driven by underlying infectious process. Will await TTE. Agree with diuresis till studies available for review. Will likely require shelter AC with a NOAC.Would start Heparin gtt if no other contraindications. Thank you for allowing me to participate. Please feel free to contact me with any questions.
[2018-01-22 15:02] LABS: Albumin 2.7 g/dL (3.4-5.0); Anion Gap 11 meq/L (5-15); Blood Urea Nitrogen 60 mg/dL (7-18); Calcium 8.7 mg/dL (8.5-10.1); Carbon Dioxide 22.4 meq/L (21.0-32.0); Chloride 107 meq/L (98-107); Glomerular Filtration Rate 61 mL/min (>89); Glucose,Random 169 mg/dL (74-106); Potassium 4.6 meq/L (3.5-5.1); Sodium 140 meq/L (136-145)
[2018-01-22 15:03] LABS: Alanine Aminotransferase 26 U/L (12-78); Aspartate Aminotransferase 20 U/L (15-37)
[2018-01-22 15:06] LABS: Alkaline Phosphatase 66 U/L (45-117); Total Protein 6.9 g/dL (6.4-8.2); Vancomycin,Random 11.9 Comment
[2018-01-22 15:06] LABS: Hematocrit 42.7 % (39.0-51.0); Hemoglobin 13.6 gm/dL (13.0-17.0); Lymph # (Auto) 0.7 th/mm3 (1.0-4.8); Lymph % (Auto) 3.9 % (9.0-44.0); Mean Corpuscular HGB Conc 31.8 % (32.0-36.0); Mean Corpuscular Hemoglobin 29.7 pg (27.0-34.0); Mean Corpuscular Volume 93.6 fL (80.0-100.0); Mean Platelet Volume 9.3 fL (7.0-11.0); Mono # (Auto) 1.4 th/mm3 (0.0-0.9); Mono % (Auto) 7.1 % (0.0-8.0); Neut # (Auto) 16.9 th/mm3 (1.8-7.7); Platelet Count 199 th/mm3 (150-450); Red Blood Count 4.56 mil/mm3 (4.50-5.90)
--- NOTE | 2018-01-22 16:35 | MB ---
cc: Sagrario Lopez MD DATE: 01/22/2018 REFERRING PHYSICIAN: Dr. Sushma Souza. CHIEF COMPLAINT: Atrial fibrillation with slow ventricular rate. HISTORY OF PRESENT ILLNESS: Mr. Morales Valverde is a very pleasant 77-year-old gentleman, who currently resides in a [facility]. He has got a past medical history of COPD, Alzheimer's dementia, hyperlipidemia, and anxiety, who presented with hypercapnic respiratory distress. In review of the notes, the patient was being treated for a urinary tract infection and subsequently was intubated and placed on mechanical ventilatory support for his hypercapnic respiratory failure. He was subsequently extubated and remains on BiPAP at night, and he continues to improve with regards to his respiratory status. He has been started on bronchodilators and Solu-Medrol. He was found to be in atrial fibrillation with a slow ventricular response, with heart rates in the 30s to 40s while he was sleeping. He continues to remain in atrial fibrillation. According to the patient, he is not aware of being in atrial fibrillation previously. A transthoracic echocardiogram has been ordered on the patient and is currently pending review. Currently, the patient denies any chest pain, PND, or orthopnea. His chest x-ray shows small consolidation with mild bilateral effusions. REVIEW OF SYSTEMS: Full 12-point review of systems otherwise negative, except as mentioned in the HPI. PAST MEDICAL HISTORY: 1. COPD. 2. GERD. 3. Hypertension. 4. Hyperlipidemia. 5. Hypothyroidism. 6. History of methicillin-resistant Staphylococcus aureus. 7. Urinary tract infection. PAST SURGICAL HISTORY: History of urostomy. SOCIAL HISTORY: Lives in a [facility]. Denies tobacco, alcohol, or illicit drug use. FAMILY HISTORY: No sudden cardiac . ALLERGIES: PENICILLIN G. MEDICATIONS: Reviewed on electronic medical record. PHYSICAL EXAMINATION: VITAL SIGNS: Blood pressure 144/62, heart rate of 49. GENERAL: Comfortable, in no acute distress. HEENT: Eyes: No scleral icterus. Oropharynx: Moist mucous membranes. HEART: Regular rate and rhythm. Normal S1, S2. No murmurs, rubs, or gallops. JVD unable to properly assess, given body habitus. PULMONARY: Decreased breath sounds at the bases. ABDOMEN: Soft, nontender, nondistended. EXTREMITIES: Chronic venous stasis ulcers noted. NEUROLOGIC: He is A and O x3. IMPRESSION: New onset atrial fibrillation with slow ventricular rate. PLAN: The patient's current episode is likely triggered by his underlying infectious etiology. At best, though; however, he does have a CHADS2-VASc score that is greater than 2, according to his age and hypertension. Therefore, long-term anticoagulation would be very reasonable in this patient. In the interim, in the acute phase, it would not be unreasonable to start the patient on heparin drip and see how he does in regards to his rates. Continue to hold AV-gabi blocking agents, given that he is nonsymptomatic. Thank you for allowing me to participate in the care of Mr. Morales Valverde. Please free to contact us with any further questions regarding about his care. MD TURNER Fernandez/jasbir , 02:16 PM , 02:29 PM
--- NOTE | 2018-01-22 16:40 | ECG ---
Date Performed: 01/21/2018 Time Performed: 22:34:53 PTAGE: 77 years EKG: ATRIAL FIBRILLATION WITH SLOW VENTRICULAR RESPONSE LOW QRS VOLTAGE IN PRECORDIAL LEADS ABNO RMAL RHYTHM ECG Since the PREVIOUS TRACING , no significant change noted PREVIOUS TRACIN01/18/2018 15.59 DOCTOR: Jammie Hughes Interpretating Date/Time 01/22/2018 16:38:14
[2018-01-22] MEDS: Vancomycin Inj 1,500 MG in Sodium Chlor 0.9% Inj 500 ML IV.SIG SCH (17:45)
[2018-01-22] MEDS: Enoxaparin Inj 40 MG/0.4 ML Syringe SQ SCH (20:41)
[2018-01-23] MEDS: Budesonide-Formoterol 160/4.5 MCG 6 GM Inhaler INH SCH ×3 (00:12→20:59)
[2018-01-23] MEDS: Insulin NovoLIN Regular Correctional Sugar Inj SQ SCH ×7 (00:12→23:42)
[2018-01-23] MEDS ORDERED: Melatonin 5 MG Tablet PO ONE (04:05)
[2018-01-23] MEDS: Chlorhexidine Gluconate 2% 1 Pack (2 Cloths) TOPICAL SCH (06:22)
[2018-01-23 07:49] LABS: Baso % (Auto) 0.1 % (0.0-2.0); Hematocrit 36.7 % (39.0-51.0); Hemoglobin 12.1 gm/dL (13.0-17.0); Lymph # (Auto) 0.7 th/mm3 (1.0-4.8); Lymph % (Auto) 4.9 % (9.0-44.0); Mean Corpuscular HGB Conc 32.9 % (32.0-36.0); Mean Corpuscular Hemoglobin 30.3 pg (27.0-34.0); Mean Corpuscular Volume 92.1 fL (80.0-100.0); Mean Platelet Volume 9.2 fL (7.0-11.0); Mono # (Auto) 0.9 th/mm3 (0.0-0.9); Mono % (Auto) 5.8 % (0.0-8.0); Neut # (Auto) 13.2 th/mm3 (1.8-7.7); Neut % (Auto) 89.2 % (16.0-70.0); Platelet Count 193 th/mm3 (150-450); Red Blood Count 3.98 mil/mm3 (4.50-5.90); Red Cell Distribution Width 14.8 % (11.6-17.2); White Blood Count 14.8 th/mm3 (4.0-11.0)
[2018-01-23 08:05] LABS: Calcium 8.8 mg/dL (8.5-10.1); Carbon Dioxide 29.1 meq/L (21.0-32.0)
[2018-01-23] MEDS: Famotidine PF Inj 20 MG/2 ML Vial IV.PUSH SCH ×2 (08:43→20:58)
[2018-01-23] MEDS: MethylPREDNISolone Sod Succinate Inj 40 MG/ML Vial IV.PUSH SCH ×2 (08:43→20:59)
[2018-01-23] MEDS: hydrALAZINE 50 MG Tablet PO SCH ×3 (08:43→17:06)
--- NOTE | 2018-01-23 10:34 | P.PN ---
Subjective Interval history: Nursing denies any deterioration since last night. Reports that the patient is incredibly talkative. But he also makes false statements putting his mental status and question. But he does demonstrate orientation 3. Physical Exam Vital signs: Vital Signs 01/22/18 11:00 01/22/18 12:00 01/22/18 14:00 Temperature 98.6 F Pulse Rate 72 70 77 Respiratory Rate 18 22 Blood Pressure 166/70 H Pulse Oximetry 97 01/22/18 14:56 01/22/18 15:57 01/22/18 16:00 Temperature 98.7 F Pulse Rate 72 71 76 Respiratory Rate 18 20 Blood Pressure 177/74 H Pulse Oximetry 97 01/22/18 18:00 01/22/18 18:56 01/22/18 20:00 Temperature 98.7 F Pulse Rate 88 73 Respiratory Rate 23 Blood Pressure 163/72 H Pulse Oximetry 98 96 01/22/18 21:40 01/22/18 22:00 01/23/18 00:00 Temperature 98.4 F Pulse Rate 73 65 66 Respiratory Rate 25 H 20 Blood Pressure 142/63 H Pulse Oximetry 94 L 96 01/23/18 00:21 01/23/18 02:00 01/23/18 04:00 Temperature 98.2 F Pulse Rate 63 72 78 Respiratory Rate 24 25 H Blood Pressure 134/61 Pulse Oximetry 95 95 01/23/18 04:31 01/23/18 06:00 01/23/18 08:29 Temperature Pulse Rate 84 69 71 Respiratory Rate 25 H 33 H Blood Pressure Pulse Oximetry 97 96 Intake & Output 01/22/18 01/23/18 01/23/18 18:59 06:59 18:59 Intake Total 700 / 700 1315 / 1315 Output Total 450 / 450 Balance 250 / 250 1315 / 1315 Weight 126.5 kg Intake: IV 100 / 100 715 / 715 Azactam Inj 1,000 MG In NS Inj 100 / 100 200 / 200 100 ML @ 200 mls/hr IV.SIG Q8H [facility] Rx#:[id number] Vancomycin Inj 1,500 MG In NS 515 / 515 Inj 500 ML @ 250 mls/hr IV.SIG Q24H [facility] Rx#:[id number] Oral 600 / 600 600 / 600 Output: Urine Amount (Stoma) 450 / 450 Pre-Hospital: Continent 450 / 450 Urostomy Other: Date of Last Bowel Movement 01/18/18 01/18/18 # Bowel Movements 0 0 Narrative: Ostomy bag in place Mild expiratory wheezing heard . Trace dyspnea but I think this is compounded by the patient's rapid speech when he speaks, on nasal cannula Results - Labs CBC & Chem 7: 01/23/18 05:00 01/23/18 05:00 Laboratory Results - last 24 hr 01/22/18 01/22/18 01/22/18 12:03 13:28 13:58 WBC 19.0 H RBC 4.56 Hgb 13.6 Hct 42.7 MCV 93.6 MCH 29.7 MCHC 31.8 L RDW 15.0 Plt Count 199 MPV 9.3 Neut % (Auto) 89.0 H Lymph % (Auto) 3.9 L [place] % (Auto) 7.1 Eos % (Auto) 0.0 Baso % (Auto) 0.0 Neut # (Auto) 16.9 H Lymph # (Auto) 0.7 L [place] # (Auto) 1.4 H Eos # (Auto) 0.0 Baso # (Auto) 0.0 WBC Differential . Differential Comment Auto diff final Hematology Comments Sodium 140 Potassium 4.6 Chloride 107 Carbon Dioxide 22.4 Anion Gap 11 BUN 60 H Creatinine 1.17 Estimated GFR 61 L POC Glucose 167 H Random Glucose 169 H Calcium 8.7 Total Bilirubin 0.2 AST 20 ALT 26 Alkaline Phosphatase 66 Total Protein 6.9 Albumin 2.7 L Random Vancomycin 11.9 01/22/18 01/22/18 01/23/18 16:00 20:43 00:09 WBC RBC Hgb Hct MCV MCH MCHC RDW Plt Count MPV Neut % (Auto) Lymph % (Auto) [place] % (Auto) Eos % (Auto) Baso % (Auto) Neut # (Auto) Lymph # (Auto) [place] # (Auto) Eos # (Auto) Baso # (Auto) WBC Differential Differential Comment Hematology Comments Sodium Potassium Chloride Carbon Dioxide Anion Gap BUN Creatinine Estimated GFR POC Glucose 180 H 119 H 130 H Random Glucose Calcium Total Bilirubin AST ALT Alkaline Phosphatase Total Protein Albumin Random Vancomycin 01/23/18 01/23/18 01/23/18 03:49 05:00 05:00 WBC 14.8 H RBC 3.98 L Hgb 12.1 L Hct 36.7 L MCV 92.1 MCH 30.3 MCHC 32.9 RDW 14.8 Plt Count 193 MPV 9.2 Neut % (Auto) 89.2 H Lymph % (Auto) 4.9 L [place] % (Auto) 5.8 Eos % (Auto) 0.0 Baso % (Auto) 0.1 Neut # (Auto) 13.2 H Lymph # (Auto) 0.7 L [place] # (Auto) 0.9 Eos # (Auto) 0.0 Baso # (Auto) 0.0 WBC Differential . Differential Comment Auto diff final Hematology Comments Sodium 143 Potassium 4.0 Chloride 107 Carbon Dioxide 29.1 Anion Gap 7 BUN 55 H Creatinine 1.03 Estimated GFR 70 L POC Glucose 134 H Random Glucose 148 H Calcium 8.8 Total Bilirubin AST ALT Alkaline Phosphatase Total Protein Albumin Random Vancomycin 01/23/18 08:45 WBC RBC Hgb Hct MCV MCH MCHC RDW Plt Count MPV Neut % (Auto) Lymph % (Auto) [place] % (Auto) Eos % (Auto) Baso % (Auto) Neut # (Auto) Lymph # (Auto) [place] # (Auto) Eos # (Auto) Baso # (Auto) WBC Differential Differential Comment Hematology Comments Sodium Potassium Chloride Carbon Dioxide Anion Gap BUN Creatinine Estimated GFR POC Glucose 115 H Random Glucose Calcium Total Bilirubin AST ALT Alkaline Phosphatase Total Protein Albumin Random Vancomycin Microbiology 01/18/18 13:55 Blood - Peripheral Aerobic Blood Culture - Preliminary No growth in 4 days 01/18/18 13:55 Blood - Peripheral Anaerobic Blood Culture - Preliminary No growth in 4 days 01/18/18 13:50 Blood - Peripheral Aerobic Blood Culture - Preliminary No growth in 4 days 01/18/18 13:50 Blood - Peripheral Anaerobic Blood Culture - Preliminary No growth in 4 days Assessment and Plan - Plan 77 WM admitted w/ respir failure, intubated, now extubated. Acute hypoxemic and hypercapnic respiratory failure. Chronic obstructive pulmonary disease exacerbation. -Continue with oxygen and maintain sats > 92%. -Bronchodilators, Solu-Medrol, Symbicort -Extubated 01/19, BIPAP nocturnally and PRN -CXR 01/21: Improving bibasilar densities Afib with slow vent. response. -pending 2D echo to eval LV function. Cards eval. HTN -Continue Aspirin 81 mg daily. On Hydralazine 50mg Q8 : Monitor renal function, I's and O's and electrolyte replacement per protocol. Urinary tract infection. -Continue abx (vancomycin and aztreonam). -urine cultures: Morganella Morganii, 01/18: NGTD SSI with Accu-Cheks for glycemic control . TSH level:0.84 GI prophylaxis with Pepcid 20 mg every 12 hours DVT prophylaxis- SCD's, Lovenox 40 mg subcutaneous daily.
[2018-01-23] MEDS: Vancomycin Inj 1,500 MG in Sodium Chlor 0.9% Inj 500 ML IV.SIG SCH (17:05)
[2018-01-23] MEDS: Enoxaparin Inj 40 MG/0.4 ML Syringe SQ SCH (19:44)
[2018-01-24] MEDS: Insulin NovoLIN Regular Correctional Sugar Inj SQ SCH ×5 (05:54→20:04)
[2018-01-24 07:19] LABS: Baso % (Auto) 0.1 % (0.0-2.0); Hematocrit 35.4 % (39.0-51.0); Hemoglobin 11.6 gm/dL (13.0-17.0); Lymph # (Auto) 0.7 th/mm3 (1.0-4.8); Lymph % (Auto) 5.4 % (9.0-44.0); Mean Corpuscular HGB Conc 32.9 % (32.0-36.0); Mean Corpuscular Hemoglobin 30.3 pg (27.0-34.0); Mean Corpuscular Volume 92.1 fL (80.0-100.0); Mean Platelet Volume 8.8 fL (7.0-11.0); Mono # (Auto) 0.8 th/mm3 (0.0-0.9); Mono % (Auto) 6.3 % (0.0-8.0); Neut % (Auto) 88.2 % (16.0-70.0); Platelet Count 181 th/mm3 (150-450); Red Blood Count 3.84 mil/mm3 (4.50-5.90); Red Cell Distribution Width 15.4 % (11.6-17.2); White Blood Count 13.6 th/mm3 (4.0-11.0)
[2018-01-24 07:39] LABS: Calcium 8.5 mg/dL (8.5-10.1); Carbon Dioxide 28.2 meq/L (21.0-32.0); Potassium 4.1 meq/L (3.5-5.1)
[2018-01-24] MEDS: MethylPREDNISolone Sod Succinate Inj 40 MG/ML Vial IV.PUSH SCH ×2 (09:19→20:03)
[2018-01-24] MEDS: hydrALAZINE 50 MG Tablet PO SCH ×3 (09:20→18:27)
[2018-01-24] MEDS: Famotidine PF Inj 20 MG/2 ML Vial IV.PUSH SCH ×2 (09:20→20:03)
[2018-01-24] MEDS: Budesonide-Formoterol 160/4.5 MCG 6 GM Inhaler INH SCH ×2 (09:21→20:03)
--- NOTE | 2018-01-24 12:09 | P.CONPAL ---
Consult Service: Palliative Care Requesting Physician: Jose Washington Reason for Consult: a. To assist with evaluation and management of symptoms including: dyspnea b. To assist medical decision maker(s) with: better understanding of current medical conditions; weighing benefits/burdens of medical treatment options; making medical treatment decisions. Primary Care Provider: UNKNOWN History of Present Illness History of Present Illness: 77-year-old patient presented to the ED on 01/18/18 via EMS in severe respiratory distress. He apparently was diagnosed with a UTI the day before and began having shortness of breath. He received nebulizers with no improvement. He resides at a half-way [facility] ([facility]), they ordered CXR however was not resulted on day of presentation. Patient apparently told EMS that he was a DNR however he wanted to be intubated. EMS noted pt a&ox4 on their arrival, with obvious resp distress. EMS applied CPAP however he deteriorated with decreased level of consciousness, apnea. *Pew review of available records: He has known history of Alzheimer's disease , COPD, dysphagia, GERD, hernia, hyperlipidemia, hypertension, hypothyroid, schizoaffective disorder and hx of alcoholism and DEE. 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 Has urostomy due to hx bladder CA. * Despite CPAP, fatigued. He was intubated in the ED. CXR= effusions, consolidation. UA +. mera cultures obtained. +WBC 14. started on flagyl, vanco , , aztreonam in ED. Troponin neg. Admitted to ICU. * 01/20, extubated, requiring Bipap overnight. BC no growth. urine + GNR. ST eval : mild dysphagia, tolerated puree, nectar thick liquids. * 01/21 Cxr = Cardiomegaly with improving bibasilar densities * PT eval- pt w decreased mobility, requires mod assist for bed mobility. LUE with minimal to no function. Reported able to transfer [place] w 2 person assist. * A/fib and some bradycardia in the 30s while asleep. EKG with A. fib slow ventricular response. BP 157/67. On BiPAP overnight. Alert. 2D echo ordered. Cardiology consultation ordered. Critical care signed off, patient transferred to hospitalist. * Sputum culture normal respiratory eva. BC no growth. urine = morganella morganii * Cardiology consulted: New onset A. fib and slow ventricular rate. A. fib and SOB likely from underlying infectious process. Continue diureses until additional diagnostics available. Hold AV gabi blockers. Would start heparin if no contraindications. Would benefit from long-term anticoagulation. * 01/23 he remains stable. Tolerating NC. He remains alert and oriented however at times "makes false statements". Med attending noted Some concern about capacity for medical decision making. * During August admission he was noted to have a community DNR, which he confirmed. He later rescinded DNR. There was no contact info for family. During May CVA admission he was noted by history to have "mild cognitive impairment" and a resident of [facility]. Per review of records appears to have been NH resident at [facility] since at least 2013. Pt seen in room no visitors present. Nurse present for part of interactions, assisted her to reposition him. He is alert, oriented to year, president, place, [place]. Able to tell me that he resides in [facility] though he tells me he is lived there for 3 years, it appears she has been living there since August of this year according to our records. Prior to that he indicates he resided at [facility] for 5 or 6 years, which also appears consistent with available records. He is able to name his friend Taran Hyman who he tells me is "in charge of all my affairs ". He tells me he has no family remaining that he is not and with no children. He tells me his brother in the past few years of pancreatic cancer. He has fairly limited insight into current hospitalization he tells me he is in the hospital for UTI. He does not remember his time on a ventilator. Ask him about his signed DNR which is dated 2010 in the chart he asks me what is a DNR. Review with him resuscitation, ventilator etc. he does not really seem to understand what resuscitation entails or what the ventilator is. He is currently on nasal cannula and tells me that the kind of breathing to be he is used to, and that he uses the breathing tube mask at night. He seems to have fairly intact remote recall, much of the information was later able to be verified with his friend Taran on the phone. He does appear to have pretty limited insight into current acute issues. He does tell me he has had recurrent UTIs since having his bladder cancer and having the subsequent urostomy permanently.He indicates overall he is feeling much better and feels like his urine is getting better. He denies pain. Denies dyspnea though he visibly appear short of breath during conversation. He denies any GI complaints. Nursing indicates for the most part he is oriented and appropriate though at times he is forgetful and does not seem to fully understand things. Following exam call to his friend Taran, Taran indicates he has known the patient for many years, and that the patient has designated him with his affairs as he knows his wishes. He also indicates patient's remaining family are all , brother recently of pancreatic cancer. He tells me that the patient has been suffering from some dementia for a few years now, and that sometimes it will seem like his "mind is right "but then other times he forgets everything that he talked about and that he makes stuff up in that he does not seem to understand things fully. He indicates the patient has not been right since the of his mother and grandmother years ago who apparently while on life support. He indicates that back at the time of his mother and grandmother's illness patient had many conversations with him about never wanting to be on a ventilator, especially now wanting to be prolonged on a ventilator, and never wanting artificial measures such as etc. Gently explore with her off of the alternative to these measures if patient's condition worsen would be comfort measures and possibly hospice. Taran indicates in the past he has spoken with providers about hospice. He indicates generally patient seems to bounce back from his infections and other medical complications but that if he continues to deteriorate or does not improve he would likely invoke hospice to provide him comfort care at the nursing facility that he calls home. He requests the patient be made a DNR based on his known wishes and tells me that if the patient agreed to a breathing tube in the ER he probably thought it was just 1 of the masks and that he did not fully understand it would be a ventilator. Palliative medical social worker assisted with obtaining copies of POA, healthcare designation documents from nursing facility, these documents are dated 2010, [facility]. All copies obtained except for the last signature page, requested case management assist with obtaining the last page [facility] the [facility]. These documents name Taran Hyman. Function/Cognitive Trajectory: half-way [place] resident, prior to August 2017 lived at [facility], following admission here 08/2017, was d/c to [facility] for half-way care. Lived in a NH since at least 2011. primarily bedbound, transfer OOB w lift. Able to feed self. Requires assist w all other adls . Review of Systems other (poor historian at times ) Constitutional: Reports weight gain (100 lbs in 1 year per friend , "from eating too much eating 6 meals a day"), Denies anorexia Eyes: Denies change in vision Ears, Nose, Mouth, and Throat: Denies headache(s), Denies mouth lesions, Denies sore throat Cardiovascular: Reports shortness of breath with activity, Reports shortness of breath when lying down, Denies chest pain Respiratory: Reports shortness of breath, Reports shortness of breath with activity, Denies cough Gastrointestinal: Denies abdominal pain, Denies constipation, Denies nausea, Denies pain with swallowing, Denies vomiting Genitourinary: Reports other (urine darker than usual ) Psychiatric: Reports confusion (confusion, fluctuates per friend) [facility] - History History Provided By: Medical Record - Medical History Medical History: Medical History (Last Reviewed 01/24/18 @ 16:10 by JOHN Jo) Alzheimer disease Anxiety COPD (chronic obstructive pulmonary disease) Dysphagia GERD (gastroesophageal reflux disease) Hernia Hyperlipemia Hypertension Hypothyroidism MRSA (methicillin resistant Staphylococcus aureus) Sepsis UTI (urinary tract infection) - Surgical History Surgical History: Surgical History (Last Updated 01/24/18 @ 16:23 by JOHN Jo) H/O prostatectomy History of urostomy - Family History Family History: Family History (Last Updated 01/24/18 @ 16:10 by JOHN Jo) Brother Pancreatic cancer - Tobacco History Tobacco Use In Past 30 Days: No (UTO) Smoking Status: Former smoker Tobacco Type: Cigarettes - Alcohol History How Often Do You Have a Drink Containing Alcohol: Never - Substance Use History Substance History: Past History (history of ETOH abuse per records, no active use) - Travel History Recent Travel in the [facility] Within the Last 8 Weeks: No Recent Travel Out of the Country Within the Last 8 Weeks: No - Immunization History Tetanus Immunization: Unsure Medications and Allergies Active Medications: Active Medications Al Hydroxide/Mg Hydroxide (Milk Of Magnesia Liq) 30 ml PO Q12H PRN PRN Reason: Mild Constipation Albuterol (Duoneb Neb (Rodolfo)) 1 ampul NEB Q4HR NEB [facility] Last Admin: 01/24/18 08:07 Dose: 1 ampul Albuterol (Duoneb Neb (Prn)) 1 ampul NEB Q2HR NEB PRN PRN Reason: WHEEZING Aspirin (Ecotrin) 81 mg PO DAILY [facility] Last Admin: 01/24/18 09:19 Dose: 81 mg Bisacodyl (Dulcolax Supp) 10 mg RECTAL DAILY PRN PRN Reason: SEVERE CONSITIPATION Budesonide/Formoterol Fumarate (Symbicort 160/4.5 Mcg Inh) 2 puff INH BID [facility] Last Admin: 01/24/18 09:21 Dose: 2 puff Dextrose (D50w Vial) 50 ml IV.PUSH UNSCH PRN PRN Reason: PER HYPOGLYCEMIA PROTOCOL Enoxaparin Sodium (Lovenox Inj) 40 mg SQ Q24H [facility] Last Admin: 01/23/18 19:44 Dose: 40 mg Famotidine (Pepcid Pf Inj) 20 mg IV.PUSH Q12HR [facility] Last Admin: 01/24/18 09:20 Dose: 20 mg Glucagon (Glucagon Inj) 1 mg OTHER PRN PRN PRN Reason: for Hypoglycemia Protocol Hydralazine HCl (Apresoline) 50 mg PO TID [facility] Last Admin: 01/24/18 09:20 Dose: 50 mg Pharmacy Profile Note (Vancomycin Consult Pharmacy) 0 mls @ 0 mls/hr OTHER UNSCH [facility] Aztreonam 1,000 mg/ Sodium (Chloride) 100 mls @ 200 mls/hr IV.SIG Q8H [facility] Last Admin: 01/24/18 09:20 Dose: 200 mls/hr Magnesium Sulfate Inj 2 gm/ (Sodium Chloride) 100 mls @ 50 mls/hr IV.SIG UNSCH PRN PRN Reason: For Magnesium 1.2 - 1.6 mg/dL Potassium Chloride (Kcl 40 Meq Premix Inj) 40 meq in 100 mls @ 25 mls/hr IV.SIG Q2H PRN PRN Reason: For Potassium 2.8 - 3.2 mEq/L Potassium Chloride (Kcl 20 Meq Premix Inj) 20 meq in 100 mls @ 50 mls/hr IV.SIG Q2H PRN PRN Reason: For Potassium 3.3 - 3.5 mEq/L Potassium Chloride (Kcl 40 Meq Premix Inj) 40 meq in 100 mls @ 25 mls/hr IV.SIG UNSCH PRN PRN Reason: For Potassium 3.3 - 3.5 mEq/L Potassium Chloride (Kcl 20 Meq Premix Inj) 20 meq in 100 mls @ 50 mls/hr IV.SIG Q2H PRN PRN Reason: For Potassium 2.8 - 3.2 mEq/L Potassium Phosphate 30 mmol/ (Sodium Chloride) 260 mls @ 42 mls/hr IV.SIG UNSCH PRN PRN Reason: SEE LABEL COMMENTS Sodium Phosphate 30 mmol/ (Sodium Chloride) 260 mls @ 42 mls/hr IV.SIG UNSCH PRN PRN Reason: For Phosphorus < 2.5 mg/dL Last Infusion: 01/20/18 19:00 Dose: Infused Magnesium Sulfate Inj 4 gm/ (Sodium Chloride) 100 mls @ 50 mls/hr IV.SIG UNSCH PRN PRN Reason: For Magnesium 0.9 - 1.1 mg/dL Nicardipine HCl 25 mg/ Sodium (Chloride) 250 mls @ 50 mls/hr IV.CONT TITRATE PRN; Protocol PRN Reason: Per Protocol Vancomycin HCl 1,500 mg/ (Sodium Chloride) 515 mls @ 250 mls/hr IV.SIG Q24H RODOLFO Last Infusion: 01/23/18 19:45 Dose: 0 mls/hr Insulin Human Regular (Novolin R Correctional Sugar Inj) 0 units SQ Q4HR RODOLFO; Protocol Last Admin: 01/24/18 09:20 Dose: Not Given Lactulose (Lactulose Liq) 30 ml PO DAILY PRN PRN Reason: SEVERE CONSITIPATION Magnesium Oxide (Mag-Ox) 800 mg PO UNSCH PRN PRN Reason: For Magnesium 1.2 - 1.6 mg/dL Methylprednisolone Sodium Succinate (Solumedrol Inj) 40 mg IV.PUSH Q12HR RODOLFO Last Admin: 01/24/18 09:19 Dose: 40 mg Miscellaneous Information ([facility] Ordered Lab Info) 0 each OTHER ONCE ONE Stop: 01/25/18 16:46 Nitroglycerin (Nitro-Bid 2% Oint) 2 inch TOPICAL Q6HR PRN PRN Reason: SBP>160, DBP>90 Last Admin: 01/23/18 21:10 Dose: 2 inch Potassium Bicarb/Potassium Chloride (K-Lyte Cl Eff) 50 meq PO UNSCH PRN PRN Reason: For Potassium 3.3 - 3.5 mEq/L Potassium Phosphate (K-Phos Original) 2,000 mg PO Q4H PRN PRN Reason: Phosphorus Less Than 2.5 mg/dL Potassium Phosphate (K-Phos Original) 2,000 mg PO UNSCH PRN PRN Reason: SEE LABEL COMMENTS Sennosides (Senokot) 17.2 mg PO Q12H PRN PRN Reason: Moderate Constipation Allergies Allergy/AdvReac Type Severity Reaction Status Date / Time penicillin G Allergy Severe as a child Verified 01/18/18 17:33 Home Medications Medication Instructions Recorded Confirmed Type albuterol sulfate 2.5 mg INHALATION Q2HR PRN 01/18/18 01/18/18 History alum-mag hydroxide-simeth [Mag-Al 10 ml PO QID 01/18/18 01/18/18 History Plus Extra Strength] aspirin 81 mg PO DAILY 01/18/18 01/18/18 History atorvastatin 40 mg PO HS 01/18/18 01/18/18 History budesonide 0.5 mg INHALATION Q12H 01/18/18 01/18/18 History ipratropium-albuterol 3 ml INHALATION QID 01/18/18 01/18/18 History levothyroxine 50 mcg PO DAILY 01/18/18 01/18/18 History lisinopril 10 mg PO DAILY 01/18/18 01/18/18 History loperamide [Imodium A-D] 2 mg PO DIRECTED PRN 01/18/18 01/18/18 History loratadine [Claritin] 10 mg PO DAILY 01/18/18 01/18/18 History magnesium hydroxide [Milk of 30 ml PO Q6HR PRN 01/18/18 01/18/18 History Magnesia] memantine-donepezil [Namzaric] 2 cap PO DAILY 01/18/18 01/18/18 History montelukast [Singulair] 10 mg PO QPM 01/18/18 01/18/18 History polyethylene glycol 3350 [Miralax] 17 gm PO DAILY PRN 01/18/18 01/18/18 History polyvinyl alcohol 2 drp EACH EYE Q4HR PRN 01/18/18 01/18/18 History quetiapine [Seroquel] 50 mg PO BID 01/18/18 01/18/18 History Advance Directives Living Will: Yes Healthcare Surrogate: Yes (Friend Taran Hyman) Power of Hide Handler: Yes Power of Hide Handler Name: Friend Taran Hyman Ethical and Legal Issues: patient is alert and oriented ;however he appears to have limited insight. He also appears to have some underlying dementia based on available records as well as friends report, as well as history of schizoaffective disorder. He may be able to participate some in decision making though major decision should be made by his designated surrogate as his insight appears limited and given his fluctuations he may not have good recall of benefit/burden/decisions made Physical Exam Vital Signs: Vital Signs - 24 hr 01/23/18 12:00 01/23/18 12:21 01/23/18 14:00 Temperature 98.4 F Pulse Rate 89 82 80 Respiratory Rate 18 24 Blood Pressure 144/63 H Pulse Oximetry 96 95 01/23/18 16:00 01/23/18 16:12 01/23/18 17:01 Temperature 98.4 F Pulse Rate 76 82 81 Respiratory Rate 24 28 H 30 H Blood Pressure 147/66 H 144/64 H Pulse Oximetry 97 96 96 01/23/18 18:00 01/23/18 18:01 01/23/18 19:00 Temperature Pulse Rate 91 H 99 H 79 Respiratory Rate 40 H 46 H 33 H Blood Pressure 170/71 H Pulse Oximetry 94 L 93 L 96 01/23/18 19:01 01/23/18 20:00 01/23/18 20:01 Temperature 98.7 F Pulse Rate 78 83 74 Respiratory Rate 31 H 40 H 41 H Blood Pressure 169/70 H 173/111 H 173/111 H Pulse Oximetry 96 95 95 01/23/18 20:26 01/23/18 20:46 01/23/18 21:00 Temperature Pulse Rate 76 79 79 Respiratory Rate 37 H 21 46 H Blood Pressure 189/72 H Pulse Oximetry 96 96 95 01/23/18 21:04 01/23/18 21:15 01/23/18 22:00 Temperature Pulse Rate 75 83 Respiratory Rate 41 H 29 H Blood Pressure 190/83 H Pulse Oximetry 95 96 96 01/23/18 22:01 01/23/18 23:00 01/23/18 23:01 Temperature Pulse Rate 79 80 78 Respiratory Rate 33 H 27 H 27 H Blood Pressure 155/62 H 163/70 H Pulse Oximetry 95 95 96 01/24/18 00:00 01/24/18 00:01 01/24/18 00:38 Temperature 98.2 F Pulse Rate 74 80 79 Respiratory Rate 30 H 25 H 27 H Blood Pressure 158/65 H 158/65 H Pulse Oximetry 96 97 96 01/24/18 01:00 01/24/18 01:01 01/24/18 02:00 Temperature Pulse Rate 79 75 80 Respiratory Rate 27 H 24 25 H Blood Pressure 144/58 H 130/61 Pulse Oximetry 95 95 95 01/24/18 03:00 01/24/18 03:01 01/24/18 04:00 Temperature 98.7 F Pulse Rate 79 78 80 Respiratory Rate 25 H 26 H 32 H Blood Pressure 149/62 H 117/53 L Pulse Oximetry 96 96 96 01/24/18 04:01 01/24/18 04:31 01/24/18 05:01 Temperature Pulse Rate 82 92 H 91 H Respiratory Rate 30 H 32 H 42 H Blood Pressure 117/53 L 116/61 Pulse Oximetry 96 96 01/24/18 06:00 01/24/18 06:01 01/24/18 07:00 Temperature Pulse Rate 82 79 75 Respiratory Rate 28 H 26 H 23 Blood Pressure 135/62 Pulse Oximetry 96 96 96 01/24/18 07:01 01/24/18 08:00 01/24/18 08:01 Temperature 98.7 F Pulse Rate 71 79 80 Respiratory Rate 24 26 H 26 H Blood Pressure 124/58 L 162/70 H Pulse Oximetry 95 96 98 01/24/18 08:08 01/24/18 09:00 01/24/18 09:06 Temperature Pulse Rate 67 88 79 Respiratory Rate 21 25 H 25 H Blood Pressure 137/86 Pulse Oximetry 96 97 94 L 01/24/18 09:16 Temperature Pulse Rate Respiratory Rate Blood Pressure Pulse Oximetry 100 I&O: Intake & Output 01/22/18 01/23/18 01/24/18 01/25/18 06:59 06:59 06:59 06:59 Intake Total 1550 / 1550 2014 1640 / 1640 Output Total 1175 / 1175 450 / 450 1725 / 1725 Balance 375 / 375 1565 / 1565 -85 / -85 Weight 125.5 kg 126.5 kg 125.5 kg Physical Exam: CONSTITUTIONAL/GENERAL: This is an obese, pleasant man, short of breath TUBES/LINES/DRAINS: Peripheral IV upper extremity, urostomy drain, nasal cannula O2 SKIN: No jaundice, rashes, or lesions. Ecchymoses on upper extremities. Skin warm and dry. HEAD: Atraumatic. Normocephalic. EYES: Pupils equal and round and reactive. Extraocular motions intact. No scleral icterus. No injection or drainage. Fundi not examined. ENT: Slightly hard of hearing. Nose without bleeding or purulent drainage. Throat without visible erythema, exudates, masses, or lesions. NECK: Trachea midline. Very thick round short neck CARDIOVASCULAR: Irregular rate and rhythm. Atrial fib via bedside monitor. No JVD. Peripheral pulses symmetric. Slight edema to extremities. RESPIRATORY/CHEST: Symmetric, unlabored respirations. Clear to auscultation. Breath sounds equal bilaterally. No wheezes, rales, or rhonchi. GASTROINTESTINAL: Abdomen soft, obese, non-tender, nondistended. Healed scar mid, left abdomen. Urostomy mid lower abdomen. Draining clear yellow urine. No guarding. Bowel sounds present. GENITOURINARY: Urostomy mid lower abdomen draining clear yellow urine. MUSCULOSKELETAL: Extremities without clubbing, cyanosis, or edema. No joint tenderness or effusion noted. LYMPHATICS: No palpable cervical or supraclavicular adenopathy. NEUROLOGICAL: Awake and alert. Oriented 3. Generally appropriate though insight very limited, short-term history poor at times. Pleasant, follows commands. Only has gross movement intact to left upper extremity. Moves right upper fairly well, moves bilateral lower extremities. Generalized weakness. PSYCHIATRIC: No obvious anxiety/depression. no apparent hallucinations or other psychotic thought process. Diagnostic Tests Laboratory: Laboratory Results - last 72 hr 01/21/18 01/21/18 01/21/18 14:10 14:10 16:33 WBC 21.0 H RBC 4.54 Hgb 14.0 Hct 42.6 MCV 93.8 MCH 30.8 MCHC 32.8 RDW 15.3 Plt Count 234 MPV 8.7 Prelim Diff (Auto) Slide review pending Neut % (Auto) 91.3 H Lymph % (Auto) 2.6 L [place] % (Auto) 5.8 Eos % (Auto) 0.1 Baso % (Auto) 0.2 Neut # (Auto) 19.2 H Lymph # (Auto) 0.5 L [place] # (Auto) 1.2 H Eos # (Auto) 0.0 Baso # (Auto) 0.0 WBC Differential . Diff Scan Auto diff confirmed Differential Comment . Hematology Comments Sodium 141 Potassium 4.0 Chloride 103 Carbon Dioxide 26.7 Anion Gap 11 BUN 56 H Creatinine 1.37 H Estimated GFR 51 L POC Glucose 211 H Random Glucose 227 H Calcium 8.6 D Phosphorus 2.8 D Magnesium 2.9 H Total Bilirubin AST ALT Alkaline Phosphatase Total Protein Albumin Random Vancomycin 24.6 01/21/18 01/22/18 01/22/18 19:50 00:54 04:04 WBC RBC Hgb Hct MCV MCH MCHC RDW Plt Count MPV Prelim Diff (Auto) Neut % (Auto) Lymph % (Auto) [place] % (Auto) Eos % (Auto) Baso % (Auto) Neut # (Auto) Lymph # (Auto) [place] # (Auto) Eos # (Auto) Baso # (Auto) WBC Differential Diff Scan Differential Comment Hematology Comments Sodium Potassium Chloride Carbon Dioxide Anion Gap BUN Creatinine Estimated GFR POC Glucose 166 H 139 H 142 H Random Glucose Calcium Phosphorus Magnesium Total Bilirubin AST ALT Alkaline Phosphatase Total Protein Albumin Random Vancomycin 01/22/18 01/22/18 01/22/18 09:01 12:03 13:28 WBC RBC Hgb Hct MCV MCH MCHC RDW Plt Count MPV Prelim Diff (Auto) Neut % (Auto) Lymph % (Auto) [place] % (Auto) Eos % (Auto) Baso % (Auto) Neut # (Auto) Lymph # (Auto) [place] # (Auto) Eos # (Auto) Baso # (Auto) WBC Differential Diff Scan Differential Comment Hematology Comments Sodium 140 Potassium 4.6 Chloride 107 Carbon Dioxide 22.4 Anion Gap 11 BUN 60 H Creatinine 1.17 Estimated GFR 61 L POC Glucose 114 H 167 H Random Glucose 169 H Calcium 8.7 Phosphorus Magnesium Total Bilirubin 0.2 AST 20 ALT 26 Alkaline Phosphatase 66 Total Protein 6.9 Albumin 2.7 L Random Vancomycin 11.9 01/22/18 01/22/18 01/22/18 13:58 16:00 20:43 WBC 19.0 H RBC 4.56 Hgb 13.6 Hct 42.7 MCV 93.6 MCH 29.7 MCHC 31.8 L RDW 15.0 Plt Count 199 MPV 9.3 Prelim Diff (Auto) Neut % (Auto) 89.0 H Lymph % (Auto) 3.9 L [place] % (Auto) 7.1 Eos % (Auto) 0.0 Baso % (Auto) 0.0 Neut # (Auto) 16.9 H Lymph # (Auto) 0.7 L [place] # (Auto) 1.4 H Eos # (Auto) 0.0 Baso # (Auto) 0.0 WBC Differential . Diff Scan Differential Comment Auto diff final Hematology Comments Sodium Potassium Chloride Carbon Dioxide Anion Gap BUN Creatinine Estimated GFR POC Glucose 180 H 119 H Random Glucose Calcium Phosphorus Magnesium Total Bilirubin AST ALT Alkaline Phosphatase Total Protein Albumin Random Vancomycin 01/23/18 01/23/18 01/23/18 00:09 03:49 05:00 WBC 14.8 H RBC 3.98 L Hgb 12.1 L Hct 36.7 L MCV 92.1 MCH 30.3 MCHC 32.9 RDW 14.8 Plt Count 193 MPV 9.2 Prelim Diff (Auto) Neut % (Auto) 89.2 H Lymph % (Auto) 4.9 L [place] % (Auto) 5.8 Eos % (Auto) 0.0 Baso % (Auto) 0.1 Neut # (Auto) 13.2 H Lymph # (Auto) 0.7 L [place] # (Auto) 0.9 Eos # (Auto) 0.0 Baso # (Auto) 0.0 WBC Differential . Diff Scan Differential Comment Auto diff final Hematology Comments Sodium Potassium Chloride Carbon Dioxide Anion Gap BUN Creatinine Estimated GFR POC Glucose 130 H 134 H Random Glucose Calcium Phosphorus Magnesium Total Bilirubin AST ALT Alkaline Phosphatase Total Protein Albumin Random Vancomycin 01/23/18 01/23/18 01/23/18 05:00 08:45 11:00 WBC RBC Hgb Hct MCV MCH MCHC RDW Plt Count MPV Prelim Diff (Auto) Neut % (Auto) Lymph % (Auto) [place] % (Auto) Eos % (Auto) Baso % (Auto) Neut # (Auto) Lymph # (Auto) [place] # (Auto) Eos # (Auto) Baso # (Auto) WBC Differential Diff Scan Differential Comment Hematology Comments Sodium 143 Potassium 4.0 Chloride 107 Carbon Dioxide 29.1 Anion Gap 7 BUN 55 H Creatinine 1.03 Estimated GFR 70 L POC Glucose 115 H 156 H Random Glucose 148 H Calcium 8.8 Phosphorus Magnesium Total Bilirubin AST ALT Alkaline Phosphatase Total Protein Albumin Random Vancomycin 01/23/18 01/23/18 01/23/18 16:08 19:42 23:15 WBC RBC Hgb Hct MCV MCH MCHC RDW Plt Count MPV Prelim Diff (Auto) Neut % (Auto) Lymph % (Auto) [place] % (Auto) Eos % (Auto) Baso % (Auto) Neut # (Auto) Lymph # (Auto) [place] # (Auto) Eos # (Auto) Baso # (Auto) WBC Differential Diff Scan Differential Comment Hematology Comments Sodium Potassium Chloride Carbon Dioxide Anion Gap BUN Creatinine Estimated GFR POC Glucose 204 H 142 H 141 H Random Glucose Calcium Phosphorus Magnesium Total Bilirubin AST ALT Alkaline Phosphatase Total Protein Albumin Random Vancomycin 01/24/18 01/24/18 01/24/18 04:46 06:37 06:37 WBC 13.6 H RBC 3.84 L Hgb 11.6 L Hct 35.4 L MCV 92.1 MCH 30.3 MCHC 32.9 RDW 15.4 Plt Count 181 MPV 8.8 Prelim Diff (Auto) Neut % (Auto) 88.2 H Lymph % (Auto) 5.4 L [place] % (Auto) 6.3 Eos % (Auto) 0.0 Baso % (Auto) 0.1 Neut # (Auto) 12.0 H Lymph # (Auto) 0.7 L [place] # (Auto) 0.8 Eos # (Auto) 0.0 Baso # (Auto) 0.0 WBC Differential . Diff Scan Differential Comment Auto diff final Hematology Comments Sodium 143 Potassium 4.1 Chloride 108 H Carbon Dioxide 28.2 Anion Gap 7 BUN 54 H Creatinine 1.01 Estimated GFR 72 L POC Glucose 133 H Random Glucose 129 H Calcium 8.5 Phosphorus Magnesium Total Bilirubin AST ALT Alkaline Phosphatase Total Protein Albumin Random Vancomycin 01/24/18 09:10 WBC RBC Hgb Hct MCV MCH MCHC RDW Plt Count MPV Prelim Diff (Auto) Neut % (Auto) Lymph % (Auto) [place] % (Auto) Eos % (Auto) Baso % (Auto) Neut # (Auto) Lymph # (Auto) [place] # (Auto) Eos # (Auto) Baso # (Auto) WBC Differential Diff Scan Differential Comment Hematology Comments Sodium Potassium Chloride Carbon Dioxide Anion Gap BUN Creatinine Estimated GFR POC Glucose 109 Random Glucose Calcium Phosphorus Magnesium Total Bilirubin AST ALT Alkaline Phosphatase Total Protein Albumin Random Vancomycin Result Diagrams: 01/24/18 06:37 01/24/18 06:37 Microbiology: Microbiology 01/18/18 13:55 Aerobic Blood Culture - Final Blood - Peripheral No growth in 5 days Anaerobic Blood Culture - Final No growth in 5 days 01/18/18 13:50 Aerobic Blood Culture - Final Blood - Peripheral No growth in 5 days Anaerobic Blood Culture - Final No growth in 5 days 01/19/18 01:00 Gram Stain - Final Sputum - Endotracheal Sputum Culture - Final Heavy growth normal respiratory eva Imaging: Chest X-Ray 01/18/18 13:36 CONCLUSION: Small effusions and mild consolidation bilaterally. Chest X-Ray 01/21/18 00:00 CONCLUSION: Cardiomegaly with improving bibasilar densities. Patient/Family Conference Issues Discussed: Spoke with patient, and patient's friend Taran via phone. Patient has good remote recall and for the most part is oriented however has limited insight into current circumstances therefore limited discussion. (See HPI for additional information) discussion with the friend included the following: * Palliative care role, purpose, approach * Additional medical, psychosocial, and spiritual history-patient has indicated he is Yazidism mervin and supported by pole tester at his SNF * Patients general health, functional status, and cognitive changes in the months leading up to the current hospitalization-patient has been a long-term resident of nursing facility for many years * understanding of the current medical problems * understanding of prognosis * Patients goals of care as best understood from advance directives and/or conversations and/or values * Current medical treatment options and benefits/burdens of those options * Likely scenarios comparing ongoing aggressive care with a transition to comfort measures only/review of hospice services should the patient continue to experience infections, decline etc. * CODE STATUS-Taran requests resumption of DNR status based on patient's known wishes of many years * Questions answered to the best of my ability * Palliative care contact information provided Taran indicates he has known the patient for many years, and that the patient has designated him with his affairs as he knows his wishes. He also indicates patient's remaining family are all , brother recently of pancreatic cancer. He tells me that the patient has been suffering from some dementia for a few years now, and that sometimes it will seem like his "mind is right "but then other times he forgets everything that he talked about and that he makes stuff up in that he does not seem to understand things fully. He indicates the patient has not been right since the of his mother and grandmother years ago who apparently while on life support. He indicates that back at the time of his mother and grandmother's illness patient had many conversations with him about never wanting to be on a ventilator, especially now wanting to be prolonged on a ventilator, and never wanting artificial measures such as etc. Gently explore with her off of the alternative to these measures if patient's condition worsen would be comfort measures and possibly hospice. Taran indicates in the past he has spoken with providers about hospice. He indicates generally patient seems to bounce back from his infections and other medical complications but that if he continues to deteriorate or does not improve he would likely invoke hospice to provide him comfort care at the nursing facility that he calls home. He requests the patient be made a DNR based on his known wishes and tells me that if the patient agreed to a breathing tube in the ER he probably thought it was just 1 of the masks and that he did not fully understand it would be a ventilator. Assessment and Plan Pertinent Non-Medical Issues: Psychosocial: Patient originally from [place] though moved to [place] many years ago when his family did. 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 He has never has no children. All of his family is , he is Boogie's friend of many years Taran Hyman. Spiritual: Yazidism mervin declines digital strategist visit indicates well supported by spiritual leader at his SNF Legal: Patient is alert and oriented ;however he appears to have limited insight. He also appears to have some underlying dementia based on available records as well as friends report, as well as history of schizoaffective disorder. He may be able to participate some in decision making though major decision should be made by his designated surrogate as his insight appears limited and given his fluctuations he may not have good recall of benefit/burden /decisions made. Ethical issues impacting care: No ethical issues identified. Important Contacts: Taran Hyman (reported POA) [phone] Prognosis: This patient was admitted for acute respiratory distress from alf. He apparently had just been diagnosed with a UTI, UTI was confirmed Morganella morganii I during this admission. He required intubation upon arrival the was extubated 24 hours later. CXR with improving densities. Appears to be nearing baseline in terms of respiratory status. Developed acute atrial fibrillation as a complication. Long-term alf resident with multiple medical comorbidities. Likely with ongoing aggressive management he can stabilize and return back to his prior status at facility. If he continues to experience complications, decline may be hospice appropriate if goals comfort oriented. . Plan: Legal decision maker: Patient is alert and oriented ;however he appears to have limited insight. He also appears to have some underlying dementia based on available records as well as friends report, as well as history of schizoaffective disorder. He may be able to participate some in decision making though major decision should be made by his designated surrogate as his insight appears limited and given his fluctuations he may not have good recall of benefit/burden/decisions made Goals: Patient goals are to feel better and get back to his nursing facility where he is a long-term. Friend expresses goals to treat current infectious process and get him back to his baseline at nursing facility. If the patient continued to experience complications or setbacks or recurrent infections he may consider hospice for comfort measures at that time. CODE STATUS: DNR SYMPTOMS: --Dyspnea--admitted for acute shortness of breath. Long history of COPD, CPAP, DEE. Intubated for a short course, extubated after 24 hours. Using BiPAP at night. Patient endorsing breathing is at his baseline though he is a poor historian at times. + Visibly short of breath during exam though he denies dyspnea.+ Expiratory wheezes, has prn nebulizers. --Denies any pain. Denies any GI complaints. Palliative care will continue to follow during hospital course as condition evolves, to assist patient/decision-maker with understanding of medical conditions, weighing benefits/burdens of treatment options, for clarification of goals of treatment. Additionally will assist with any symptoms of palliative concern Time Spent Total Floor Time (mins): 70 (Chart review, discussion with nursing, PE, discussion with friend/HCS) Appreciation Thank you for the opportunity to participate in the care of Morales Roman Attestation Attestation: To help prompt me to consider important information that might be impacting today's encounter and assessment, information from prior notes written by myself or my colleagues may have been "brought forward" into today's note. My signature on this note, however, is an attestation that I personally performed the exam, history, and/or decision-making noted today, and, unless otherwise indicated, the interactions with patient, family, and staff as well as the review of records all occurred today. I also attest that the listed assessment and stated plan reflect my best clinical judgment today based on the combination of historical information, prior notes, and today's exam/ interactions. When time spent is documented, it refers only to time spent today by the signer, or if indicated, combined time spent today by collaborating physician/nurse practitioner.
--- NOTE | 2018-01-24 13:24 | P.PNPAL ---
Spoke with web specialist at [facility]. Confirm they have POA for health care. Requested copies. Awaiting fax with paperwork to add to patient 's record.
--- NOTE | 2018-01-24 16:01 | P.PN ---
Subjective Interval history: Nursing denies any deterioration since last night. Patient has no new complaints. Pleasant mood today. Physical Exam Vital signs: Vital Signs 01/23/18 16:12 01/23/18 17:01 01/23/18 18:00 Temperature Pulse Rate 82 81 91 H Respiratory Rate 28 H 30 H 40 H Blood Pressure 144/64 H Pulse Oximetry 96 96 94 L 01/23/18 18:01 01/23/18 19:00 01/23/18 19:01 Temperature Pulse Rate 99 H 79 78 Respiratory Rate 46 H 33 H 31 H Blood Pressure 170/71 H 169/70 H Pulse Oximetry 93 L 96 96 01/23/18 20:00 01/23/18 20:01 01/23/18 20:26 Temperature 98.7 F Pulse Rate 83 74 76 Respiratory Rate 40 H 41 H 37 H Blood Pressure 173/111 H 173/111 H 189/72 H Pulse Oximetry 95 95 96 01/23/18 20:46 01/23/18 21:00 01/23/18 21:04 Temperature Pulse Rate 79 79 75 Respiratory Rate 21 46 H 41 H Blood Pressure 190/83 H Pulse Oximetry 96 95 95 01/23/18 21:15 01/23/18 22:00 01/23/18 22:01 Temperature Pulse Rate 83 79 Respiratory Rate 29 H 33 H Blood Pressure 155/62 H Pulse Oximetry 96 96 95 01/23/18 23:00 01/23/18 23:01 01/24/18 00:00 Temperature 98.2 F Pulse Rate 80 78 74 Respiratory Rate 27 H 27 H 30 H Blood Pressure 163/70 H 158/65 H Pulse Oximetry 95 96 96 01/24/18 00:01 01/24/18 00:38 01/24/18 01:00 Temperature Pulse Rate 80 79 79 Respiratory Rate 25 H 27 H 27 H Blood Pressure 158/65 H Pulse Oximetry 97 96 95 01/24/18 01:01 01/24/18 02:00 01/24/18 03:00 Temperature Pulse Rate 75 80 79 Respiratory Rate 24 25 H 25 H Blood Pressure 144/58 H 130/61 Pulse Oximetry 95 95 96 01/24/18 03:01 01/24/18 04:00 01/24/18 04:01 Temperature 98.7 F Pulse Rate 78 80 82 Respiratory Rate 26 H 32 H 30 H Blood Pressure 149/62 H 117/53 L 117/53 L Pulse Oximetry 96 96 96 01/24/18 04:31 01/24/18 05:01 01/24/18 06:00 Temperature Pulse Rate 92 H 91 H 82 Respiratory Rate 32 H 42 H 28 H Blood Pressure 116/61 Pulse Oximetry 96 96 01/24/18 06:01 01/24/18 07:00 01/24/18 07:01 Temperature Pulse Rate 79 75 71 Respiratory Rate 26 H 23 24 Blood Pressure 135/62 124/58 L Pulse Oximetry 96 96 95 01/24/18 08:00 01/24/18 08:01 01/24/18 08:08 Temperature 98.7 F Pulse Rate 80 80 67 Respiratory Rate 26 H 26 H 21 Blood Pressure 162/70 H Pulse Oximetry 96 98 96 01/24/18 09:00 01/24/18 09:06 01/24/18 09:16 Temperature Pulse Rate 88 79 Respiratory Rate 25 H 25 H Blood Pressure 137/86 Pulse Oximetry 97 94 L 100 01/24/18 10:00 01/24/18 11:00 01/24/18 11:05 Temperature Pulse Rate 87 82 84 Respiratory Rate 31 H 27 H 29 H Blood Pressure 156/65 H 182/111 H 169/62 H Pulse Oximetry 97 94 L 97 01/24/18 11:32 01/24/18 12:00 01/24/18 12:05 Temperature 97.7 F Pulse Rate 75 82 80 Respiratory Rate 20 31 H 34 H Blood Pressure 144/63 H 144/63 H Pulse Oximetry 90 L 95 01/24/18 15:39 Temperature Pulse Rate 80 Respiratory Rate 22 Blood Pressure Pulse Oximetry Intake & Output 01/23/18 01/24/18 01/24/18 18:59 06:59 18:59 Intake Total 1040 / 1040 600 / 600 Output Total 950 / 950 775 / 775 Balance 90 / 90 -175 / -175 Weight 125.5 kg Intake: IV 200 / 200 600 / 600 Azactam Inj 1,000 MG In NS Inj 200 / 200 100 / 100 100 ML @ 200 mls/hr IV.SIG Q8H BRETT Rx#:[id number] Vancomycin Inj 1,500 MG In NS 500 / 500 Inj 500 ML @ 250 mls/hr IV.SIG Q24H BRETT Rx#:[id number] Oral 840 / 840 0 / 0 Output: Urine Amount (Stoma) 950 / 950 775 / 775 Pre-Hospital: Continent 950 / 950 775 / 775 Urostomy Other: Date of Last Bowel Movement 01/23/18 01/23/18 01/23/18 # Bowel Movements 1 0 Narrative: Coarse breath sounds bilaterally with unlabored breathing, on BiPAP since the patient is waking up this morning, otherwise tolerating nasal cannula 3 L well. Results - Labs CBC & Chem 7: 01/24/18 06:37 01/24/18 06:37 Laboratory Results - last 24 hr 01/23/18 01/23/18 01/23/18 16:08 19:42 23:15 WBC RBC Hgb Hct MCV MCH MCHC RDW Plt Count MPV Neut % (Auto) Lymph % (Auto) [place] % (Auto) Eos % (Auto) Baso % (Auto) Neut # (Auto) Lymph # (Auto) [place] # (Auto) Eos # (Auto) Baso # (Auto) WBC Differential Differential Comment Sodium Potassium Chloride Carbon Dioxide Anion Gap BUN Creatinine Estimated GFR POC Glucose 204 H 142 H 141 H Random Glucose Calcium 01/24/18 01/24/18 01/24/18 04:46 06:37 06:37 WBC 13.6 H RBC 3.84 L Hgb 11.6 L Hct 35.4 L MCV 92.1 MCH 30.3 MCHC 32.9 RDW 15.4 Plt Count 181 MPV 8.8 Neut % (Auto) 88.2 H Lymph % (Auto) 5.4 L [place] % (Auto) 6.3 Eos % (Auto) 0.0 Baso % (Auto) 0.1 Neut # (Auto) 12.0 H Lymph # (Auto) 0.7 L [place] # (Auto) 0.8 Eos # (Auto) 0.0 Baso # (Auto) 0.0 WBC Differential . Differential Comment Auto diff final Sodium 143 Potassium 4.1 Chloride 108 H Carbon Dioxide 28.2 Anion Gap 7 BUN 54 H Creatinine 1.01 Estimated GFR 72 L POC Glucose 133 H Random Glucose 129 H Calcium 8.5 01/24/18 01/24/18 09:10 12:06 WBC RBC Hgb Hct MCV MCH MCHC RDW Plt Count MPV Neut % (Auto) Lymph % (Auto) [place] % (Auto) Eos % (Auto) Baso % (Auto) Neut # (Auto) Lymph # (Auto) [place] # (Auto) Eos # (Auto) Baso # (Auto) WBC Differential Differential Comment Sodium Potassium Chloride Carbon Dioxide Anion Gap BUN Creatinine Estimated GFR POC Glucose 109 149 H Random Glucose Calcium Assessment and Plan - Plan 77 WM admitted w/ respir failure, intubated, now extubated. Acute hypoxemic and hypercapnic respiratory failure. Chronic obstructive pulmonary disease exacerbation. -Continue with oxygen and maintain sats > 92%. -Bronchodilators, Solu-Medrol, Symbicort -Extubated 01/19, BIPAP nocturnally and PRN -CXR 01/21: Improving bibasilar densities Unclear if patient has oxygen at home, he himself is not a reliable historian, waiting to hear back from correction to verify oxygen supplementation Afib with slow vent. response. -pending 2D echo to eval LV function. Cards eval. HTN -Continue Aspirin 81 mg daily. On Hydralazine 50mg Q8 Urinary tract infection. -Continue abx (vancomycin and aztreonam). -urine cultures: Morganella Morganii, BC 01/18: NGTD SSI with Accu-Cheks for glycemic control . TSH level:0.84 GI prophylaxis with Pepcid 20 mg every 12 hours DVT prophylaxis- SCD's, Lovenox 40 mg subcutaneous daily. Discharge Planning: Transfer to [facility] today, discharge tomorrow once SNF secured and home oxygen knowledge verified by nursing
--- NOTE | 2018-01-24 17:51 | ECHRPT ---
Indication: ATRIAL FIB/FLUTTER CONCLUSIONS Normal left ventricular size. Mild concentric left ventricular hypertrophy. Normal left ventricular systolic function with an ejection fraction of 60-65%. The left atrial size is mildly dilated. Mabcj-ym-kzey mitral valve regurgitation. Severe calcific aortic stenosis. There is trace tricuspid valve regurgitation. The estimated pulmonary arterial pressure is 72 mmHg. There is estimated severe pulmonary hypertension present ( > 70 mmHg). Trace pericardial effusion. Pleural effusion. BP: / HR: Rhythm: Sinus MEASUREMENTS (Male / Female) Normal Values Technical Quality:Technically difficult study 2D ECHO LV Diastolic Diameter PLAX 4.7 cm 4.2 - 5.9 / 3.9 - 5.3 cm LV Systolic Diameter PLAX 3.4 cm IVS Diastolic Thickness 1.3 cm 0.6 - 1.0 / 0.6 - 0.9 cm LVPW Diastolic Thickness 1.3 cm 0.6 - 1.0 / 0.6 - 0.9 cm LV Relative Wall Thickness 0.6 RV Internal Dim ED PLAX 3.4 cm LVOT Diameter 1.6 cm Aortic Root Diameter 3.1 cm LA Systolic Diameter LX 4.6 cm 3.0 - 4.0 / 2.7 - 3.8 cm DOPPLER AV Peak Velocity 460.0 cm/s AV Peak Gradient 84.6 mmHg AV Mean Gradient 47.8 mmHg AV Velocity Time Integral 99.7 cm LVOT Peak Velocity 82.7 cm/s LVOT Peak Gradient 2.7 mmHg LVOT Velocity Time Integral 16.6 cm AV Area Cont Eq vti 0.3 cm AV Area Cont Eq pk 0.4 cm Mitral E Point Velocity 171.0 cm/s TR Peak Velocity 392.0 cm/s TR Peak Gradient 61.5 mmHg Right Atrial Pressure 10.0 mmHg Pulmonary Artery Systolic Pressu 71.5 mmHg Right Ventricular Systolic Press 71.5 mmHg PV Peak Velocity 71.4 cm/s PV Peak Gradient 2.0 mmHg FINDINGS LEFT VENTRICLE Normal left ventricular size. Mild concentric left ventricular hypertrophy. The left ventricular systolic function is normal with an estimated ejection fraction in the range of 60-65%. RIGHT VENTRICLE Normal right ventricular size and systolic function. LEFT ATRIUM The left atrial size is mildly dilated. RIGHT ATRIUM The right atrial size is normal. ATRIAL SEPTUM The interatrial septum not well visualized. AORTA The aortic root and proximal ascending aorta are normal in size on limited imaging. MITRAL VALVE Gxwlz-hc-vjfv mitral valve regurgitation. AORTIC VALVE Aortic valve mean gradient is 47.8 mmHg. Aortic valve area is 0.33 cm. TRICUSPID VALVE There is trace tricuspid valve regurgitation. The estimated pulmonary arterial pressure is 71.5 mmHg. There is estimated severe pulmonary hypertension present ( > 70 mmHg). PULMONARY VALVE . The pulmonary valve is not well visualized. VESSELS The inferior vena cava was not well visualized. PERICARDIUM Trace pericardial effusion. Pleural effusion. Chadwick Porter MD, FACC (Electronically Signed) Final Date:24 January 2018 17:50
[2018-01-24] MEDS: Vancomycin Inj 1,500 MG in Sodium Chlor 0.9% Inj 500 ML IV.SIG SCH (18:28)
[2018-01-24] MEDS: Enoxaparin Inj 40 MG/0.4 ML Syringe SQ SCH (20:03)
[2018-01-25] MEDS: Insulin NovoLIN Regular Correctional Sugar Inj SQ SCH ×4 (00:09→12:20)
[2018-01-25] MEDS: hydrALAZINE 50 MG Tablet PO SCH ×2 (09:09→12:20)
[2018-01-25] MEDS: Budesonide-Formoterol 160/4.5 MCG 6 GM Inhaler INH SCH (09:09)
[2018-01-25] MEDS: Famotidine PF Inj 20 MG/2 ML Vial IV.PUSH SCH (09:09)
[2018-01-25] MEDS: MethylPREDNISolone Sod Succinate Inj 40 MG/ML Vial IV.PUSH SCH (09:09)
[2018-01-25] MEDS ORDERED: predniSONE 20 MG Tablet PO SCH (09:15)
--- NOTE | 2018-01-25 09:25 | P.DS ---
Date of admission: 01/18/18 16:25 Primary care physician: UNKNOWN Brief History from admission: The patient is a 77-year-old male, [place] [facility] resident, with a past medical history of COPD, Alzheimer's dementia, hyperlipidemia, anxiety disorder, GERD, hypothyroidism, who presented to [facility] ED via EMS in respiratory distress. The patient was being treated for urinary tract infection. Per ED records, patient told paramedics that he wanted to be intubated while he was a DNR. Paramedics placed him on CPAP; however, due to decline in his respiratory status and altered mental status, he was intubated in the ED and placed on full mechanical ventilation. His laboratory data showed leukocytosis with a WBC of 14.0 and urinalysis was grossly positive for bacteria, leukocyte esterase. Chest x-ray post-intubation showed mild consolidation bilaterally and small effusions. In the ED, he was intubated with etomidate, Versed and placed on propofol and Versed drip for sedation. The patient was given aztreonam, Flagyl and vancomycin in the ED. DS: Medications - Discharge Medications Prescriptions: levofloxacin 750 mg PO DAILY #7 tab lorazepam [Ativan] 0.5 mg PO TID #9 tab prednisone See Label Instructions .ROUTE .COMPLEX #16 tab sulfamethoxazole-trimethoprim [Bactrim DS] 1 tab PO Q12H #4 tab DS: Summary Hospital Course: Patient was admitted to the ICU, intubated. Was started on antibiotics and steroids for presumed pneumonia and UTI. Eventually extubated. Blood cultures were negative, urine culture grew out Morganella. Patient with was weaned down to his home oxygen supplementation around 3 L. Palliative care verified the patient did have a POA for healthcare decisions and patient was cleared to return back to his [place] [facility]. Patient has met maximal benefit from hospitalization and is clinically stable for discharge. - Time Spent with Patient Total time spent providing and/or coordinating discharge services: Less than 30 minutes Exam Vital signs: Vital Signs 01/24/18 10:00 01/24/18 11:00 01/24/18 11:05 Temperature Pulse Rate 87 82 84 Respiratory Rate 31 H 27 H 29 H Blood Pressure 156/65 H 182/111 H 169/62 H Pulse Oximetry 97 94 L 97 01/24/18 11:32 01/24/18 12:00 01/24/18 12:05 Temperature 97.7 F Pulse Rate 75 82 80 Respiratory Rate 20 31 H 34 H Blood Pressure 144/63 H 144/63 H Pulse Oximetry 90 L 95 01/24/18 14:00 01/24/18 15:39 01/24/18 16:00 Temperature 97.8 F Pulse Rate 88 80 87 Respiratory Rate 22 24 Blood Pressure 148/65 H Pulse Oximetry 93 L 01/24/18 18:00 01/24/18 20:00 01/24/18 21:44 Temperature 98.3 F Pulse Rate 81 80 79 Respiratory Rate 30 H 20 Blood Pressure 137/60 Pulse Oximetry 94 L 95 01/24/18 22:00 01/25/18 00:00 01/25/18 00:23 Temperature 98.1 F Pulse Rate 79 115 H 99 H Respiratory Rate 37 H 38 H Blood Pressure 169/123 H Pulse Oximetry 85 L 01/25/18 00:25 01/25/18 04:00 01/25/18 04:31 Temperature 98.6 F Pulse Rate 66 54 L Respiratory Rate 20 17 Blood Pressure 111/53 L Pulse Oximetry 92 L 95 95 01/25/18 07:00 01/25/18 08:00 Temperature Pulse Rate 73 Respiratory Rate 26 H Blood Pressure Pulse Oximetry 94 L Intake & Output 01/24/18 01/25/18 01/25/18 18:59 06:59 18:59 Intake Total 965 / 965 615 / 615 Output Total 900 / 900 850 / 850 Balance 65 / 65 -235 / -235 Weight 126 kg Intake: IV 215 / 215 615 / 615 Azactam Inj 1,000 MG In NS Inj 200 / 200 100 / 100 100 ML @ 200 mls/hr IV.SIG Q8H BRETT Rx#:[id number] Vancomycin Inj 1,500 MG In NS 515 / 515 Inj 500 ML @ 250 mls/hr IV.SIG Q24H BRETT Rx#:[id number] Oral 750 / 750 0 / 0 Output: Urine Amount (Stoma) 900 / 900 850 / 850 Pre-Hospital: Continent 900 / 900 850 / 850 Urostomy Other: Date of Last Bowel Movement 01/23/18 01/25/18 # Bowel Movements 2 Narrative: Clear lungs bilaterally, unlabored breathing Results Procedures completed during hospitalization: intubation and mechanical ventilation Labs on day of discharge: Labs from last 24 hours 0801/25/18 01/25/18 09:07 04:35 00:07 POC Glucose 108 138 H 179 H 01/24/18 01/24/18 01/24/18 19:57 16:31 12:06 POC Glucose 159 H 170 H 149 H - Impressions ITS Impressions Chest X-Ray 01/21/18 00:00 CONCLUSION: Cardiomegaly with improving bibasilar densities. Discharge Plan - Discharge Disposition Patient Disposition: 03 Discharge to SNF - Discharge Condition Condition: Stable - Discharge Order Discharge Orders: Discharge Order (Routine); Ordered 01/25/18 Ordered By: Jose [place] - Physicians Team Primary Care Provider: UNKNOWN, Attending Provider: Jose [place] Other Providers: Sagrario Lopez MD ; Sushma Souza MD ; Case Rover, Xand ; Robert Jaime MD ; [facility],[place]
[2018-01-25 12:56] VITALS: BP 140/80; TEMP 98; O2SAT 85
[2018-01-25] MEDS ORDERED: Pharmacy Ordered Lab Info OTHER ONE (16:45)
[2018-01-27 12:15] VITALS: PULSE 88; RESP 25
== END 2018-01-25 13:15 ==
LOC: NEPC 13:29 → NEDA 16:25 → HIMC 17:50
PROVIDERS: ADMIT Hospitalist; ATTEND Hospitalist

== ENCOUNTER 2018-07-24 09:16 | Inpatient (IN) ==
--- NOTE | 2018-07-24 09:32 | ED ---
HPI General Chief Complaint: Altered Mental Status Stated Complaint: Medical Time Seen by Provider: 07/24/18 09:21 Source: EMS and RN notes reviewed Mode of arrival: EMS Limitations: altered mental status History of Present Illness HPI narrative: Patient is a 78-year-old male from [facility] - presents to the emergency room for evaluation of altered mental status. Patient does have a DNR CODE STATUS copy with him. As per EMS, patient was supposed to be on BiPAP last night, he does use this to sleep as he has history of obstructive sleep apnea. Reports that this morning, fire rescue showed up and his BiPAP was unplugged, it was not known if patient had a BiPAP on during the course of the night. Reports that patient was initially alert and oriented x3, reports that about 1/2-hour to 1 hour ago, he did complain of shortness of breath, he was given a treatment but then became unresponsive. patient's pulse ox was in the 50% upon EMS's initial evaluation. Patient been was 84-85% on 10 L nasal cannula on route to the emergency room. Patient is unable to provide HPI at this time. Related Data Home Medications Medication Instructions Recorded Confirmed albuterol sulfate 2.5 mg INHALATION Q2HR PRN 01/18/18 07/24/18 alum-mag hydroxide-simeth [Mag-Al 10 ml PO QID 01/18/18 07/24/18 Plus Extra Strength] aspirin 81 mg PO DAILY 01/18/18 07/24/18 atorvastatin 40 mg PO HS 01/18/18 07/24/18 budesonide 0.5 mg INHALATION Q12H 01/18/18 07/24/18 ipratropium-albuterol 3 ml INHALATION QID 01/18/18 07/24/18 levothyroxine 50 mcg PO DAILY 01/18/18 07/24/18 lisinopril 10 mg PO DAILY 01/18/18 07/24/18 loperamide [Imodium A-D] 2 mg PO DIRECTED PRN 01/18/18 07/24/18 loratadine [Claritin] 10 mg PO DAILY 01/18/18 07/24/18 magnesium hydroxide [Milk of 30 ml PO Q6HR PRN 01/18/18 07/24/18 Magnesia] montelukast [Singulair] 10 mg PO QPM 01/18/18 07/24/18 polyethylene glycol 3350 [Miralax] 17 gm PO DAILY PRN 01/18/18 07/24/18 polyvinyl alcohol 2 drp EACH EYE Q4HR PRN 01/18/18 07/24/18 quetiapine [Seroquel] 50 mg PO BID 01/18/18 07/24/18 donepezil [Aricept] 23 mg PO HS 07/24/18 07/24/18 ferrous sulfate [FerrouSul] 325 mg PO TID 07/24/18 07/24/18 folic acid 0.4 mg PO DAILY 07/24/18 07/24/18 memantine [Namenda] 5 mg PO BID 07/24/18 07/24/18 Allergies Allergy/AdvReac Type Severity Reaction Status Date / Time penicillin G Allergy Severe as a child Verified 01/18/18 17:33 Review of Systems ROS Unobtainable ROS Unobtainable: unobtainable due to mental condition and unobtainable due to mental status [facility] Medical History Medical History Alzheimer disease (Acute) Anxiety (Acute) COPD (chronic obstructive pulmonary disease) (Acute) Dysphagia (Acute) GERD (gastroesophageal reflux disease) (Acute) Hernia (Acute) Hyperlipemia (Acute) Hypertension (Acute) Hypothyroidism (Acute) MRSA (methicillin resistant Staphylococcus aureus) (Acute) Sepsis (Acute) UTI (urinary tract infection) (Acute) Surgical History Surgical History H/O prostatectomy (Acute) History of urostomy (Acute) Family History Family History Brother Pancreatic cancer Social History Social History Substance History: Unable to Obtain Smoking Status: Unknown if ever smoked Tobacco Type: Cigarettes How Often Do You Have a Drink Containing Alcohol: Unable to Obtain Recent Travel in [facility] within the Last 8 Weeks: No Recent Out of Country Travel within the Last 8 Weeks: No Immunization History Tetanus Immunization: Unable to Assess Exam Narrative Exam Narrative: GENERAL: Severe distress SKIN: Focused skin assessment warm/dry. HEAD: Atraumatic. Normocephalic. EYES: Pupils equal and round. No scleral icterus. No injection or drainage. ENT: No nasal bleeding or discharge. Mucous membranes pink and moist. NECK: Trachea midline. No JVD. CARDIOVASCULAR: Regular rate and rhythm. No murmur appreciated. RESPIRATORY: No accessory muscle use. Clear to auscultation. Breath sounds equal bilaterally. GASTROINTESTINAL: Abdomen soft, non-tender, nondistended. Hepatic and splenic margins not palpable. Patient with black tarry stool - heme positive MUSCULOSKELETAL: No obvious deformities. No clubbing. No cyanosis. No edema. NEUROLOGICAL: Confused Course Initial Documented Vital Signs Pulse Rate 103 H 07/24/18 09:19 Respiratory Rate 29 H 07/24/18 09:19 Blood Pressure 151/67 H 07/24/18 09:19 Pulse Oximetry 87 L 07/24/18 09:19 Last Documented Vital Signs Temperature 97.7 F 07/24/18 10:08 Pulse Rate 106 H 07/24/18 10:08 Respiratory Rate 29 H 07/24/18 09:19 Blood Pressure 126/56 L 07/24/18 10:08 Pulse Oximetry 96 07/24/18 10:08 Critical Care Time Critical Care Time: Yes Total Critical Care Time: 45 Attestation: Aggregate critical care time was 45 minutes. Time to perform other separately billable procedures was not included in the critical care time. My time did not include minutes spent treating any other patients simultaneously or on activities that did not directly contribute to the patient's treatment. The services I provided to this patient were to treat and/or prevent clinically significant deterioration that could result in: , decompensation, deterioration I provided critical care services requiring my management, as noted below: Chart data review, documentation time, medication orders and management, vital sign assessments/reviewing monitor data, ordering and reviewing lab tests, ordering and interpreting/reviewing x-rays and diagnostic studies, care of the patient and discussion of the patient with the admitting physicians. Medical Decision Making MDM Narrative Medical decision making narrative: During the course of the patients emergency department visit, the patients history, examination, and differential diagnosis were reviewed with the patient. The patient was placed on a division human resources manager with oximetry and frequent blood pressure monitoring. The patient had an IV access obtained and blood work sent for analysis. The patient was initially provided IVF Patient unable to provide any HPI at this time as he is only responsive to painful stimuli Patient does present to the emergency room with a DNR, I did attempt to call his POA, Taran Hyman at [phone] - [id number] left Patient was placed on BIPAP as he does have a DNR code status The patients laboratory studies were reviewed Patient with concerning lab/abg findings. He is a DNR - unable to intubate him CT of head and CTA ordered. Patient will require admission to ICU Case reviewed with Dr. Quiñones who accepts pt to service Medical Screen Exam Complete: Yes Emergency Medical Condition: Yes Lab Data Result diagrams: 07/24/18 09:20 07/24/18 09:20 Lab Results 07/24/18 07/24/18 07/24/18 Range/Units 09:20 09:20 09:20 WBC 13.9 H (4.0-11.0) th/mm3 RBC 4.04 L (4.50-5.90) mil/mm3 Hgb 12.3 L (13.0-17.0) gm/dL Hct 38.5 L (39.0-51.0) % MCV 95.1 (80.0-100.0) fL MCH 30.4 (27.0-34.0) pg MCHC 32.0 (32.0-36.0) % RDW 15.4 (11.6-17.2) % Plt Count 271 (150-450) th/mm3 MPV 8.5 (7.0-11.0) fL Prelim Diff (Auto) Slide review pending Neut % (Auto) 72.5 H (16.0-70.0) % Lymph % (Auto) 19.8 (9.0-44.0) % Charlton % (Auto) 5.9 (0.0-8.0) % Eos % (Auto) 1.3 (0.0-4.0) % Baso % (Auto) 0.5 (0.0-2.0) % Neut # (Auto) 10.1 H (1.8-7.7) th/mm3 Lymph # (Auto) 2.7 (1.0-4.8) th/mm3 Charlton # (Auto) 0.8 (0.0-0.9) th/mm3 Eos # (Auto) 0.2 (0.0-0.4) th/mm3 Baso # (Auto) 0.1 (0.0-0.2) th/mm3 WBC Differential . Diff Scan Auto diff confirmed Differential Comment . PT 10.4 (9.8-11.6) sec INR 1.0 Ratio APTT 24.7 (23.4-31.7) sec Puncture Site Patient Temperature O2 Saturation (90-100) % ABG pH (7.380-7.420) ABG pCO2 (38-42) mmHg ABG pO2 (61-120) mmHg ABG HCO3 (22-26) mmol/L ABG O2 Content (12.0-20.0) Vol % ABG Base Excess (-2-2) mmol/L ABG Methemoglobin (0-2) % Navjot Test Hemoglobin (12.0-16.0) G/DL Carboxyhemoglobin (0-4) % O2 Delivery Device Vent Setting Inspired O2 % Critical Value Sodium 135 L (136-145) meq/L Potassium 5.1 (3.5-5.1) meq/L Chloride 94 L (98-107) meq/L Carbon Dioxide 38.5 H (21.0-32.0) meq/L Anion Gap 3 L (5-15) meq/L BUN 16 (7-18) mg/dL Creatinine 1.03 (0.60-1.30) mg/dL Estimated GFR 70 L (>89) mL/min POC Glucose (68-110) mg/dl Random Glucose 258 H (74-106) mg/dL Lactic Acid (0.4-2.0) mmol/L Calcium 8.7 (8.5-10.1) mg/dL Magnesium 2.7 H (1.5-2.5) mg/dL Total Bilirubin 0.4 (0.2-1.0) mg/dL AST 20 (15-37) U/L ALT 31 (12-78) U/L Alkaline Phosphatase 97 (45-117) U/L Troponin I Less than 0.02 L (0.02-0.05) ng/mL B-Natriuretic Peptide (0-100) pg/mL Total Protein 7.6 (6.4-8.2) g/dL Albumin 3.2 L (3.4-5.0) g/dL Lipase 64 L (73-393) U/L 07/24/18 07/24/18 07/24/18 Range/Units 09:29 09:30 09:31 WBC (4.0-11.0) th/mm3 RBC (4.50-5.90) mil/mm3 Hgb (13.0-17.0) gm/dL Hct (39.0-51.0) % MCV (80.0-100.0) fL MCH (27.0-34.0) pg MCHC (32.0-36.0) % RDW (11.6-17.2) % Plt Count (150-450) th/mm3 MPV (7.0-11.0) fL Prelim Diff (Auto) Neut % (Auto) (16.0-70.0) % Lymph % (Auto) (9.0-44.0) % Charlton % (Auto) (0.0-8.0) % Eos % (Auto) (0.0-4.0) % Baso % (Auto) (0.0-2.0) % Neut # (Auto) (1.8-7.7) th/mm3 Lymph # (Auto) (1.0-4.8) th/mm3 Charlton # (Auto) (0.0-0.9) th/mm3 Eos # (Auto) (0.0-0.4) th/mm3 Baso # (Auto) (0.0-0.2) th/mm3 WBC Differential Diff Scan Differential Comment PT (9.8-11.6) sec INR Ratio APTT (23.4-31.7) sec Puncture Site Left radial Patient Temperature 98.6 O2 Saturation 91 (90-100) % ABG pH 7.10 L* (7.380-7.420) ABG pCO2 122 H* (38-42) mmHg ABG pO2 87 (61-120) mmHg ABG HCO3 37 H (22-26) mmol/L ABG O2 Content 15.2 (12.0-20.0) Vol % ABG Base Excess 7.1 H (-2-2) mmol/L ABG Methemoglobin 0.7 (0-2) % Navjot Test Present Hemoglobin 11.7 L (12.0-16.0) G/DL Carboxyhemoglobin 0.8 (0-4) % O2 Delivery Device Bipap Vent Setting Inspired O2 100 % Critical Value Yes Sodium (136-145) meq/L Potassium (3.5-5.1) meq/L Chloride (98-107) meq/L Carbon Dioxide (21.0-32.0) meq/L Anion Gap (5-15) meq/L BUN (7-18) mg/dL Creatinine (0.60-1.30) mg/dL Estimated GFR (>89) mL/min POC Glucose 240 H (68-110) mg/dl Random Glucose (74-106) mg/dL Lactic Acid 2.3 H (0.4-2.0) mmol/L Calcium (8.5-10.1) mg/dL Magnesium (1.5-2.5) mg/dL Total Bilirubin (0.2-1.0) mg/dL AST (15-37) U/L ALT (12-78) U/L Alkaline Phosphatase (45-117) U/L Troponin I (0.02-0.05) ng/mL B-Natriuretic Peptide (0-100) pg/mL Total Protein (6.4-8.2) g/dL Albumin (3.4-5.0) g/dL Lipase (73-393) U/L 07/24/18 Range/Units 10:15 WBC (4.0-11.0) th/mm3 RBC (4.50-5.90) mil/mm3 Hgb (13.0-17.0) gm/dL Hct (39.0-51.0) % MCV (80.0-100.0) fL MCH (27.0-34.0) pg MCHC (32.0-36.0) % RDW (11.6-17.2) % Plt Count (150-450) th/mm3 MPV (7.0-11.0) fL Prelim Diff (Auto) Neut % (Auto) (16.0-70.0) % Lymph % (Auto) (9.0-44.0) % Charlton % (Auto) (0.0-8.0) % Eos % (Auto) (0.0-4.0) % Baso % (Auto) (0.0-2.0) % Neut # (Auto) (1.8-7.7) th/mm3 Lymph # (Auto) (1.0-4.8) th/mm3 Charlton # (Auto) (0.0-0.9) th/mm3 Eos # (Auto) (0.0-0.4) th/mm3 Baso # (Auto) (0.0-0.2) th/mm3 WBC Differential Diff Scan Differential Comment PT (9.8-11.6) sec INR Ratio APTT (23.4-31.7) sec Puncture Site Patient Temperature O2 Saturation (90-100) % ABG pH (7.380-7.420) ABG pCO2 (38-42) mmHg ABG pO2 (61-120) mmHg ABG HCO3 (22-26) mmol/L ABG O2 Content (12.0-20.0) Vol % ABG Base Excess (-2-2) mmol/L ABG Methemoglobin (0-2) % Navjot Test Hemoglobin (12.0-16.0) G/DL Carboxyhemoglobin (0-4) % O2 Delivery Device Vent Setting Inspired O2 % Critical Value Sodium (136-145) meq/L Potassium (3.5-5.1) meq/L Chloride (98-107) meq/L Carbon Dioxide (21.0-32.0) meq/L Anion Gap (5-15) meq/L BUN (7-18) mg/dL Creatinine (0.60-1.30) mg/dL Estimated GFR (>89) mL/min POC Glucose (68-110) mg/dl Random Glucose (74-106) mg/dL Lactic Acid (0.4-2.0) mmol/L Calcium (8.5-10.1) mg/dL Magnesium (1.5-2.5) mg/dL Total Bilirubin (0.2-1.0) mg/dL AST (15-37) U/L ALT (12-78) U/L Alkaline Phosphatase (45-117) U/L Troponin I (0.02-0.05) ng/mL B-Natriuretic Peptide 173 H (0-100) pg/mL Total Protein (6.4-8.2) g/dL Albumin (3.4-5.0) g/dL Lipase (73-393) U/L Imaging Data Radiologist's impression: Chest X-Ray 07/24/18 09:22 CONCLUSION: Interval development of complete whiteout of the left hemithorax and opacity involving the upper two thirds of the right hemithorax. ECG Data EKG Prior to Arrival: No Attestation: I personally reviewed and interpreted this ECG as follows: Interpretation: EKG at 0937: Afib 113bpm, qt/qtc: 359/426 Discharge Plan Discharge Disposition Patient Disposition: ED Admit(ED Internal Use Only) Discharge Condition Condition: Critical Discharge Order Discharge Orders: ED Use Only Admit Order (Routine); Ordered 07/24/18 Ordered By: Nataly Jaime Discharge Details Diagnosis: Hypercapnemia Physicians Team ED Provider: Nataly Jaime Primary Care Provider: UNKNOWN, Rxs /Orders / Referrals /Forms Prescriptions: No Action atorvastatin 40 mg Tablet 40 mg PO HS RF: 0 aspirin 81 mg Tablet,Delayed Release (Dr/Ec) 81 mg PO DAILY RF: 0 ipratropium-albuterol 0.5 mg-3 mg(2.5 mg base)/3 mL Solution For Nebulization 3 ml INHALATION QID RF: 0 albuterol sulfate 2.5 mg /3 mL (0.083 %) Solution For Nebulization 2.5 mg INHALATION Q2HR PRN (Reason: Dyspnea) RF: 0 polyvinyl alcohol 1.4 % Drops 2 drp EACH EYE Q4HR PRN (Reason: Dry Eyes) RF: 0 loperamide [Imodium A-D] 2 mg Tablet 2 mg PO DIRECTED PRN (Reason: Diarrhea) RF: 0 magnesium hydroxide [Milk of Magnesia] 400 mg/5 mL Suspension 30 ml PO Q6HR PRN (Reason: Constipation) RF: 0 levothyroxine 50 mcg Tablet 50 mcg PO DAILY RF: 0 lisinopril 10 mg Tablet 10 mg PO DAILY RF: 0 budesonide 0.5 mg/2 mL Suspension For Nebulization 0.5 mg INHALATION Q12H RF: 0 montelukast [Singulair] 10 mg Tablet 10 mg PO QPM RF: 0 polyethylene glycol 3350 [Miralax] 17 gram/dose Powder 17 gm PO DAILY PRN (Reason: Constipation) RF: 0 loratadine [Claritin] 10 mg Tablet 10 mg PO DAILY RF: 0 alum-mag hydroxide-simeth [Mag-Al Plus Extra Strength] 400-400-40 mg/5 mL Suspension 10 ml PO QID RF: 0 quetiapine [Seroquel] 50 mg Tablet 50 mg PO BID RF: 0 ferrous sulfate [FerrouSul] 325 mg (65 mg iron) Tablet 325 mg PO TID RF: 0 folic acid 0.8 mg Capsule 0.4 mg PO DAILY RF: 0 memantine [Namenda] 5 mg Tablet 5 mg PO BID RF: 0 donepezil [Aricept] 23 mg Tablet 23 mg PO HS RF: 0 Discharge Interventions Interventions: Vital Signs Last Done: 07/24/18 11:11 Status ED Status: Pending Admission
[2018-07-24 09:40] LABS: ABG Base Excess 7.1 mmol/L (-2-2); ABG PCO2 122 mmHg (38-42); ABG PO2 87 mmHg (61-120)
[2018-07-24 09:48] LABS: Baso # (Auto) 0.1 th/mm3 (0.0-0.2); Baso % (Auto) 0.5 % (0.0-2.0); Eos # (Auto) 0.2 th/mm3 (0.0-0.4); Eos % (Auto) 1.3 % (0.0-4.0); Hematocrit 38.5 % (39.0-51.0); Hemoglobin 12.3 gm/dL (13.0-17.0); Lymph # (Auto) 2.7 th/mm3 (1.0-4.8); Lymph % (Auto) 19.8 % (9.0-44.0); Mean Corpuscular Hemoglobin 30.4 pg (27.0-34.0); Mean Corpuscular Volume 95.1 fL (80.0-100.0); Mean Platelet Volume 8.5 fL (7.0-11.0); Mono # (Auto) 0.8 th/mm3 (0.0-0.9); Mono % (Auto) 5.9 % (0.0-8.0); Neut # (Auto) 10.1 th/mm3 (1.8-7.7); Neut % (Auto) 72.5 % (16.0-70.0); Platelet Count 271 th/mm3 (150-450); Red Blood Count 4.04 mil/mm3 (4.50-5.90); Red Cell Distribution Width 15.4 % (11.6-17.2); White Blood Count 13.9 th/mm3 (4.0-11.0)
[2018-07-24] MEDS ORDERED: Vancomycin Inj 1,000 MG in Sodium Chlor 0.9% Inj 250 ML IV.SIG STA (10:02)
[2018-07-24] MEDS ORDERED: Aztreonam Inj 2 GM in Sodium Chloride 0.9% Inj 100 ML IV.SIG STA (10:02)
[2018-07-24 10:04] LABS: Activated Partial Thrombo Time 24.7 sec (23.4-31.7); Prothrombin Time 10.4 sec (9.8-11.6)
[2018-07-24 10:09] LABS: Albumin 3.2 g/dL (3.4-5.0); Anion Gap 3 meq/L (5-15); Aspartate Aminotransferase 20 U/L (15-37); Blood Urea Nitrogen 16 mg/dL (7-18); Calcium 8.7 mg/dL (8.5-10.1); Carbon Dioxide 38.5 meq/L (21.0-32.0); Chloride 94 meq/L (98-107); Glomerular Filtration Rate 70 mL/min (>89); Glucose,Random 258 mg/dL (74-106); Lipase 64 U/L (73-393); Magnesium 2.7 mg/dL (1.5-2.5); Potassium 5.1 meq/L (3.5-5.1); Sodium 135 meq/L (136-145)
[2018-07-24 10:15] LABS: Alanine Aminotransferase 31 U/L (12-78); Alkaline Phosphatase 97 U/L (45-117); Total Protein 7.6 g/dL (6.4-8.2)
--- NOTE | 2018-07-24 10:15 | XR ---
EXAM DATE: 07/24/2018 10:12 AM EST AGE/SEX: 78 years / Male INDICATIONS: Fever. CLINICAL DATA: This is the patient's initial encounter. Patient reports that signs and symptoms have been present for 1 day and indicates a pain score of Nonresponsive. MEDICAL/SURGICAL HISTORY: Non-responsive. Non-responsive. COMPARISON: [facility] [place], CHEST 1V SINGLE AP, 01/21/2018. . FINDINGS: Frontal view of the chest demonstrates interval development of complete white out of the left hemitho rax and increasing hazy opacity in the right hemithorax sparing the apex. There is complete loss of t he left heart border. The trachea remains in the midline. CONCLUSION: Interval development of complete whiteout of the left hemithorax and opacity involving the upper two thirds of the right hemithorax. Electronically signed by: Bryan Quezada MD Board Certified Radiologist 07/24/2018 10:14 AM EST
[2018-07-24] MEDS ORDERED: Potassium Chlor 40 mEq Premix 40 MEQ/100 ML PIGGYBACK IV.SIG PRN ×2 (12:15)
[2018-07-24] MEDS ORDERED: Potassium Chlor 20 mEq Premix 20 MEQ/100 ML PIGGYBACK IV.SIG PRN ×2 (12:15)
[2018-07-24] MEDS ORDERED: Potassium Chloride Liq 20 MEQ/15 ML UDC PO PRN ×2 (12:15)
[2018-07-24] MEDS ORDERED: Magnesium Sulfate Inj 4 GM in Sodium Chlor 0.9% Inj 92 ML IV.SIG PRN (12:15)
[2018-07-24] MEDS ORDERED: Magnesium Oxide 400 MG Tablet PO PRN (12:15)
[2018-07-24] MEDS ORDERED: Potassium Phosphate Inj 30 MMOL in Sodium Chlor 0.9% Inj 250 ML IV.SIG PRN (12:15)
[2018-07-24] MEDS ORDERED: Magnesium Sulfate Inj 2 GM in Sodium Chlor 0.9% Inj 96 ML IV.SIG PRN (12:15)
[2018-07-24] MEDS ORDERED: Potassium Phosphate 500 MG Soluble Tablet PO PRN ×2 (12:15)
[2018-07-24] MEDS ORDERED: Sodium Phosphate Inj 30 MMOL in Sodium Chlor 0.9% Inj 250 ML IV.SIG PRN (12:15)
[2018-07-24] MEDS ORDERED: Bisacodyl 10 MG Supp RECTAL PRN (12:15)
--- NOTE | 2018-07-24 12:17 | ECG ---
Date Performed: 07/24/2018 Time Performed: 09:37:44 PTAGE: 78 years EKG: ATRIAL FIBRILLATION WITH RAPID VENTRICULAR RESPONSE WITH ABERRANT CONDUCTION OR VENTRICULAR PREMATURE COMPLEXES LOW QRS VOLTAGE IN PRECORDIAL LEADS SEPTAL MYOCARDIAL INFARCTION ABNORMAL ECG PREVIOUS TRACING : 01/21/2018 22.34 DOCTOR: Kar Trejo Interpretating Date/Time 07/24/2018 12:16:15
[2018-07-24] MEDS ORDERED: Dextrose 50% in Water 50 ML Vial IV.PUSH PRN (12:24)
--- NOTE | 2018-07-24 12:24 | P.CONPAL ---
Consult Service: Palliative Care Requesting Physician: Lise Quiñones Reason for Consult: a. To assist with evaluation and management of symptoms including: Dyspnea, anxiety b. To assist medical decision maker(s) with: better understanding of current medical conditions; weighing benefits/burdens of medical treatment options; making medical treatment decisions. Primary Care Provider: UNKNOWN History of Present Illness History of Present Illness: This pt presented to the ED today 07/24/18, from [facility] for reported AMS. EMS reports supposed to use Bipap at night to sleep. Reported that when Rescue arrived to facility Bipap was unplugged, not known if was on overnight or not. reported pt initially A&O x 3, and hour or so before presentation c/o SOB, was given treatment and then became unresponsive. SPO2 50% on EMS arrival, 84-85% on 10L NC on way to ED. * ED: RR 29, afebrile. Hemodynamically stable, started on IVF. Started on BIPAP , noted with DNR copy at arrival. CT brain, CTA ordered. CXR = WBC 13.9 . Troponin neg. ABG= pH 7.10, PCO2 122, HCO3 37, BE 7.1. ED MD attempting to contact [facility] regarding tx goals. Unable to reach, continued on Bipap. Critical care consulted. Palliative Care consulted. Discuss prev admission interaction with critical care, ED MDs. I have attempted to reach [facility] Taran Mantilla on both numbers, several times on ayana #. On home # Mr Mantilla answers ,relayed message need to speak w her RE a patient that her is [facility] for, request he call us back ALESSIA. She is going to try to reach him as well. Patient is seen in room no visitors present. He is minimally responsive on BiPAP. He opens his eyes briefly he does not follow any commands for me. Extremities are cool. He is pale. On BiPAP 100% FiO2. Respiratory rate 15-16. Later received callback from Mr. Mantilla he is en route to the hospital. He will call me when he arrives here, updated him briefly on patient current status, he continues to endorse DNR status otherwise requests to see patient before making further decisions. 1500--Mr. Mantilla called me once he arrived to the ED, I met with him at patient bedside. Patient is now more alert, interactive and attempting to talk to Mr. Mantilla.(*This is limited due to BiPAP) he is following commands. He asks me " was I nearly gone", explore that he has significant chest x-ray findings and he is requiring significant BiPAP support and he was and IS high risk for requiring intubation. Due to communication limitations and dyspnea requiring BiPAP limited ability to fully assess his orientation and during my prior interactions with this patient during hospitalizations he had very limited insight. Review with Mr. Mantilla current diagnostics, treatments in place. Spoke with Mr. Mantilla regarding patient CT imaging findings and recommendations for chest tubes- -Mr. Mantilla is in agreement with this, he endorses that he would want to do what ever is possible to try to help the patient recover short of intubation and he endorses that the patient has long said he would never want breathing tubes and he intends to honor this request however he would accept aggressive medical treatment short of that. Review with Mr. Mantilla that patient does still remain at risk for respiratory deterioration even with ongoing aggressive interventions. -Updated ED nurse, updated critical care Dr. Quiñones Of note, pt known to palliative service, this provider from 01/2018. 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 During that admission he was reated for UTI, Pneumonia. He was on bipap, though failed bipap and was intubated. During hospital course episodes of a fib slow ventricular response (rate 30s while asleep). He was later medically extubated. He was a&o x 2-3, with very limited insight. He had known hx of dementia, schizoaffective disorder. During palliative interaction with [facility] Taran Mantilla at that time: "He indicates that back at the time of his mother and grandmother's illness patient had many conversations with him about never wanting to be on a ventilator, especially now wanting to be prolonged on a ventilator, and never wanting artificial measures such as etc. Gently explore with her off of the alternative to these measures if patient's condition worsen would be comfort measures and possibly hospice. Taran indicates in the past he has spoken with providers about hospice. He indicates generally patient seems to bounce back from his infections and other medical complications but that if he continues to deteriorate or does not improve he would likely invoke hospice to provide him comfort care at the nursing facility that he calls home. He requests the patient be made a DNR based on his known wishes and tells me that if the patient agreed to a breathing tube in the ER he probably thought it was just 1 of the masks and that he did not fully understand it would be a ventilator." Taran ultimately elected to continue medical tx short of CPR to try to get pt back to baseline, and if pt deteriorated or did not improve planned to request hospice. Function/Cognitive Trajectory: Per prior pal-care consult: fpc NH resident, prior to August 2017 lived at [facility], following admission here 08/2017, was d/c to [facility] for fpc care. Lived in a NH since at least 2011. primarily bedbound, transfer OOB w lift. Able to feed self. Requires assist w all other adls This admission 07/24 healthcare surrogate confirms he has been at his usual baseline which is primarily staying in bed, eating fine, talking, full care with ADLs. Review of Systems unobtainable due to mental status (lethargic, on bipap. ) [facility] - History History Provided By: Medical Record - Medical History Medical History: Medical History (Last Updated 07/24/18 @ 15:54 by JOHN Jo) CVA (cerebral vascular accident) Alzheimer disease Anxiety COPD (chronic obstructive pulmonary disease) Dysphagia GERD (gastroesophageal reflux disease) Hernia Hyperlipemia Hypertension Hypothyroidism MRSA (methicillin resistant Staphylococcus aureus) Sepsis UTI (urinary tract infection) - Surgical History Surgical History: Surgical History (Last Reviewed 07/24/18 @ 15:54 by JOHN Jo) H/O prostatectomy History of urostomy - Family History Family History: Family History (Last Reviewed 07/24/18 @ 15:56 by JOHN Jo) Brother Pancreatic cancer - Social History I have reviewed the patient's Social History: Yes - Tobacco History Second Hand Smoke Exposure: No Tobacco Use In Past 30 Days: No Smoking Status: Former smoker Tobacco Type: Cigarettes - Alcohol History How Often Do You Have a Drink Containing Alcohol: Never - Substance Use History Substance History: No History of Abuse, Unable to Obtain - Travel History History of Recent Travel: No Recent Travel in the [place] Within the Last 8 Weeks: No Recent Travel Out of the Country Within the Last 8 Weeks: No - Immunization History Tetanus Immunization: Unable to Assess Medications and Allergies Allergies Allergy/AdvReac Type Severity Reaction Status Date / Time penicillin G Allergy Severe as a child Verified 01/18/18 17:33 Home Medications Medication Instructions Recorded Confirmed Type albuterol sulfate 2.5 mg INHALATION Q2HR PRN 01/18/18 07/24/18 History alum-mag hydroxide-simeth [Mag-Al 10 ml PO QID 01/18/18 07/24/18 History Plus Extra Strength] aspirin 81 mg PO DAILY 01/18/18 07/24/18 History atorvastatin 40 mg PO HS 01/18/18 07/24/18 History budesonide 0.5 mg INHALATION Q12H 01/18/18 07/24/18 History ipratropium-albuterol 3 ml INHALATION QID 01/18/18 07/24/18 History levothyroxine 50 mcg PO DAILY 01/18/18 07/24/18 History lisinopril 10 mg PO DAILY 01/18/18 07/24/18 History loperamide [Imodium A-D] 2 mg PO DIRECTED PRN 01/18/18 07/24/18 History loratadine [Claritin] 10 mg PO DAILY 01/18/18 07/24/18 History magnesium hydroxide [Milk of 30 ml PO Q6HR PRN 01/18/18 07/24/18 History Magnesia] montelukast [Singulair] 10 mg PO QPM 01/18/18 07/24/18 History polyethylene glycol 3350 [Miralax] 17 gm PO DAILY PRN 01/18/18 07/24/18 History polyvinyl alcohol 2 drp EACH EYE Q4HR PRN 01/18/18 07/24/18 History quetiapine [Seroquel] 50 mg PO BID 01/18/18 07/24/18 History donepezil [Aricept] 23 mg PO HS 07/24/18 07/24/18 History ferrous sulfate [FerrouSul] 325 mg PO TID 07/24/18 07/24/18 History folic acid 0.4 mg PO DAILY 07/24/18 07/24/18 History memantine [Namenda] 5 mg PO BID 07/24/18 07/24/18 History Advance Directives Living Will: Yes Healthcare Surrogate: Yes Health Care Surrogate Name and Number: Taran Mantilla [phone], Documented care wishes: standard verbiage details :" No life sustaining treatments if : coma, vegetative , no change of recover, brain damage, completely dependent, confined to bed, vent etc, pain or other severe sx that cannot be relieved, or a condition that will cause to soon even with life sustaining tx". Ethical and Legal Issues: Patient has previously been alert and oriented ;however he appeared to have had limited insight. He also has some underlying dementia based on available records as well as friends report, as well as history of schizoaffective disorder. Currently unable to participate due to critical clinical condition. Has HCS designation from [place] 2010 naming Taran Mantilla, and additional HCS dated 2017 naming aramis. He has previously been able to participate some in decision making though major decision should be made by his designated surrogate as his insight appears limited and given his fluctuations he may not have good recall of benefit/burden/decisions made. Physical Exam Vital Signs: Vital Signs - 24 hr 07/24/18 09:19 07/24/18 09:45 07/24/18 10:04 Temperature Pulse Rate 103 H Respiratory Rate 29 H Blood Pressure 151/67 H Pulse Oximetry 87 L 96 96 07/24/18 10:08 07/24/18 11:00 07/24/18 11:11 Temperature 97.7 F Pulse Rate 106 H 103 H 102 H Respiratory Rate 20 Blood Pressure 126/56 L 116/65 Pulse Oximetry 96 94 L I&O: Intake & Output 07/22/18 07/23/18 07/24/18 07/25/18 06:59 06:59 06:59 06:59 Intake Total 100 / 100 Balance 100 / 100 Weight 117.934 kg Physical Exam: CONSTITUTIONAL/GENERAL: This is an obese, pale elderly male initially minimally responsive to exam though later verbal and partially oriented TUBES/LINES/DRAINS: Peripheral IV upper extremities, urostomy drainage bag SKIN: No jaundice, rashes, or lesions. Skin pale. No wounds seen anteriorly. Skin cool, dry. HEAD: Atraumatic. Normocephalic. EYES: Pupils equal and round and reactive. No scleral icterus. No injection or drainage. Fundi not examined. ENT: Nose without bleeding or purulent drainage. Unable to visualize oropharynx due to BiPAP mask NECK: Trachea midline. Very large wide neck/jaw. Supple, nontender. No palpable thyroid enlargement or nodularity. CARDIOVASCULAR: Irregular rate and rhythm. Atrial fib observed on bedside monitor. Rate controlled per no JVD. Referral pulses are faint. RESPIRATORY/CHEST: Symmetric, unlabored respirations via BiPAP mask. 100% FiO2. Respirations 15-16/min. Diminished air movement throughout. GASTROINTESTINAL: Abdomen soft, obese, no apparent tenderness, nondistended. No palpable masses. No guarding. Bowel sounds present. GENITOURINARY: Without palpable bladder distension. Urostomy drain in place. Draining clear yellow urine. MUSCULOSKELETAL: Extremities without clubbing, cyanosis, or edema. No joint tenderness or effusion noted. No mottling NEUROLOGICAL: Initially lethargic and minimally responsive to my exam. Upon my later return is more awake verbalizing some partially oriented recognizes friend. Limited to poor insight to hospitalization. Moving all 4 extremities and following commands. PSYCHIATRIC: No obvious anxiety/depression. no apparent hallucinations or other psychotic thought process. Diagnostic Tests Laboratory: Laboratory Results - last 72 hr 07/24/18 07/24/18 07/24/18 09:20 09:20 09:20 WBC 13.9 H RBC 4.04 L Hgb 12.3 L Hct 38.5 L MCV 95.1 MCH 30.4 MCHC 32.0 RDW 15.4 Plt Count 271 MPV 8.5 Prelim Diff (Auto) Slide review pending Neut % (Auto) 72.5 H Lymph % (Auto) 19.8 Pender % (Auto) 5.9 Eos % (Auto) 1.3 Baso % (Auto) 0.5 Neut # (Auto) 10.1 H Lymph # (Auto) 2.7 Pender # (Auto) 0.8 Eos # (Auto) 0.2 Baso # (Auto) 0.1 WBC Differential . Diff Scan Auto diff confirmed Differential Comment . PT 10.4 INR 1.0 APTT 24.7 Puncture Site Patient Temperature O2 Saturation ABG pH ABG pCO2 ABG pO2 ABG HCO3 ABG O2 Content ABG Base Excess ABG Methemoglobin Navjot Test Hemoglobin Carboxyhemoglobin O2 Delivery Device Vent Setting Inspired O2 Critical Value Sodium 135 L Potassium 5.1 Chloride 94 L Carbon Dioxide 38.5 H Anion Gap 3 L BUN 16 Creatinine 1.03 Estimated GFR 70 L POC Glucose Random Glucose 258 H Lactic Acid Calcium 8.7 Magnesium 2.7 H Total Bilirubin 0.4 AST 20 ALT 31 Alkaline Phosphatase 97 Troponin I Less than 0.02 L B-Natriuretic Peptide Total Protein 7.6 Albumin 3.2 L Lipase 64 L Blood Type Blood Type Recheck Antibody Screen 07/24/18 07/24/18 07/24/18 09:29 09:30 09:31 WBC RBC Hgb Hct MCV MCH MCHC RDW Plt Count MPV Prelim Diff (Auto) Neut % (Auto) Lymph % (Auto) Pender % (Auto) Eos % (Auto) Baso % (Auto) Neut # (Auto) Lymph # (Auto) Pender # (Auto) Eos # (Auto) Baso # (Auto) WBC Differential Diff Scan Differential Comment PT INR APTT Puncture Site Left radial Patient Temperature 98.6 O2 Saturation 91 ABG pH 7.10 L* ABG pCO2 122 H* ABG pO2 87 ABG HCO3 37 H ABG O2 Content 15.2 ABG Base Excess 7.1 H ABG Methemoglobin 0.7 Navjot Test Present Hemoglobin 11.7 L Carboxyhemoglobin 0.8 O2 Delivery Device Bipap Vent Setting Inspired O2 100 Critical Value Yes Sodium Potassium Chloride Carbon Dioxide Anion Gap BUN Creatinine Estimated GFR POC Glucose 240 H Random Glucose Lactic Acid 2.3 H Calcium Magnesium Total Bilirubin AST ALT Alkaline Phosphatase Troponin I B-Natriuretic Peptide Total Protein Albumin Lipase Blood Type Blood Type Recheck Antibody Screen 07/24/18 07/24/18 10:14 10:15 WBC RBC Hgb Hct MCV MCH MCHC RDW Plt Count MPV Prelim Diff (Auto) Neut % (Auto) Lymph % (Auto) Pender % (Auto) Eos % (Auto) Baso % (Auto) Neut # (Auto) Lymph # (Auto) Pender # (Auto) Eos # (Auto) Baso # (Auto) WBC Differential Diff Scan Differential Comment PT INR APTT Puncture Site Patient Temperature O2 Saturation ABG pH ABG pCO2 ABG pO2 ABG HCO3 ABG O2 Content ABG Base Excess ABG Methemoglobin Navjot Test Hemoglobin Carboxyhemoglobin O2 Delivery Device Vent Setting Inspired O2 Critical Value Sodium Potassium Chloride Carbon Dioxide Anion Gap BUN Creatinine Estimated GFR POC Glucose Random Glucose Lactic Acid Calcium Magnesium Total Bilirubin AST ALT Alkaline Phosphatase Troponin I B-Natriuretic Peptide 173 H Total Protein Albumin Lipase Blood Type A Positive Blood Type Recheck Required Antibody Screen Negative Result Diagrams: 07/24/18 09:20 07/24/18 09:20 Microbiology: Microbiology 07/24/18 10:15 Influenza Types A,B Antigen - Final Nasal Wash Negative for FLU A and B antigen Infection due to influenza A or B cannot be ruled out since the antigen present in the sample may be below the detection limit of the test. Imaging: Impressions Chest X-Ray 07/24/18 09:22 CONCLUSION: Interval development of complete whiteout of the left hemithorax and opacity involving the upper two thirds of the right hemithorax. Patient/Family Conference Family Conference Location: Bedside Issues Discussed: Met with patient healthcare surrogate and friend Taran Mantilla at bedside. See HPI for additional detail. Discussion included the following: * Palliative care role, purpose, approach * Review of medical, psychosocial, history * Patients general health, functional status, leading up to the current hospitalization * family understanding of the current medical problems * family understanding of prognosis * Patients goals of care as best understood from advance directives and/or conversations and/or values * Current medical treatment options and benefits/burdens of those options * Likely scenarios comparing ongoing aggressive care with a transition to comfort measures only * Questions answered to the best of my ability * Palliative care contact information provided Assessment and Plan - Disease Oriented Problem List (1) Hypercapnic respiratory failure (2) Hypertension (3) Hypothyroid (4) Schizoaffective disorder (5) Dementia (6) History of CVA with residual deficit (7) Bladder cancer (8) History of urostomy (9) Pleural effusion (10) Atrial fibrillation (11) Altered mental status (12) COPD (chronic obstructive pulmonary disease) (13) Hyperlipidemia - Symptom Scale (1) Anxiety 0-10 Scale: Unable to quantify (2) Dyspnea 0-10 Scale: Unable to quantify Pertinent Non-Medical Issues: Psychosocial: Patient originally from [place] though moved to [place] many years ago when his family did. 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 He has never has no children. All of his family is , he is supported by Mr mantilla friend of many years Spiritual: Gnosticist mervin prev admissions declines foreclosure specialist visit indicates well supported by spiritual leader at his SNF Legal: Patient has previously been alert and oriented ;however he appeared to have had limited insight. He also has some underlying dementia based on available records as well as friends report, as well as history of schizoaffective disorder. Currently unable to participate due to critical clinical condition. Has HCS designation from [place] 2010 naming Taran Mantilla, and additional HCS dated 01/2018 naming same. He has previously been able to participate some in decision making though major decision should be made by his designated surrogate as his insight appears limited and given his fluctuations he may not have good recall of benefit/burden/decisions made. Ethical issues impacting care: No ethical issues identified. Important Contacts: Taran Mantilla [facility]- [phone], [facility] [phone] Prognosis: This patient was admitted for altered mental status, and shortness of breath. Findings of complete white out right chest. Will require chest tubes. CTA negative for PE. He has multiple chronic medical conditions, and baseline is debilitated/ bedbound; does remain at risk for ongoing complications and setbacks. Code Status: No Code DNR Plan: * LEGAL Patient has previously been alert and oriented ;however he appeared to have had limited insight. He also has some underlying dementia based on available records as well as friends report, as well as history of schizoaffective disorder. Currently unable to participate due to critical clinical condition. Has HCS designation from [place] 2010 naming Taran Mantilla, and additional HCS dated 01/2018 naming same. He has previously been able to participate some in decision making though major decision should be made by his designated surrogate as his insight appears limited and given his fluctuations he may not have good recall of benefit/burden/decisions made. * Goals: *Initially unable to reach healthcare surrogate Mr. Mantilla however later Able to meet with him at bedside he endorses that he would want to do what ever is possible to try to help the patient recover short of intubation and he endorses that the patient has long said he would never want breathing tubes and he intends to honor this request however he would accept aggressive medical treatment short of that. Review with Mr. Mantilla that patient does still remain at risk for respiratory deterioration even with ongoing aggressive interventions. He is open to ongoing discussions as clinical course evolves. * CODE STATUS: DNR SYMPTOMS: --Dyspnea--admitted for AMS/ acute shortness of breath. Long history of COPD , CPAP, DEE. 01/2018. admission : Intubated for a short course, extubated after 24 hours Uses BiPAP at night. CXR today = Interval development of complete whiteout of the left hemithorax and opacity involving the upper two thirds of the right hemithorax. Ph 7.1. Cont on Bipap per ED MD. presented with DNR. plan for bilat CTs -- pain- no signs/sx pain- denies pain during visit later. We will continue to evaluate. -- anxiety- potential for r/t hx dementia/confusion and schizoaffective disorder, BiPAP. currently relatively calm/comfortable, initially with altered mental status, lethargy. We will continue to evaluate Palliative care will continue to follow during hospital course as condition evolves, to assist patient/decision-maker with understanding of medical conditions, weighing benefits/burdens of treatment options, for clarification of goals of treatment. Additionally will assist with any symptoms of palliative concern Appreciation Thank you for the opportunity to participate in the care of Morales Valverde VCelina Attestation Attestation: To help prompt me to consider important information that might be impacting today's encounter and assessment, information from prior notes written by myself or my colleagues may have been "brought forward" into today's note. My signature on this note, however, is an attestation that I personally performed the exam, history, and/or decision-making noted today, and, unless otherwise indicated, the interactions with patient, family, and staff as well as the review of records all occurred today. I also attest that the listed assessment and stated plan reflect my best clinical judgment today based on the combination of historical information, prior notes, and today's exam/ interactions. When time spent is documented, it refers only to time spent today by the signer, or if indicated, combined time spent today by collaborating physician/nurse practitioner.
--- NOTE | 2018-07-24 12:27 | CT ---
EXAM DATE: 07/24/2018 12:20 PM EST AGE/SEX: 78 years / Male INDICATIONS: Shortness of breath, patient on bipap, found unplugged this morning. CLINICAL DATA: This is the patient's initial encounter. Patient reports that signs and symptoms have been present for 1 day and indicates a pain score of 0/10. MEDICAL/SURGICAL HISTORY: Chronic obstructive pulmonary disease. Alzheimer's disease. Hypertensio n. MRSA. None. RADIATION DOSE: 23.24 CTDI (mGy) COMPARISON: No prior exams available for comparison. TECHNIQUE: Volumetric scanning was performed using a multi-row detector CT scanner during bolus infu josias of 72 ml Omnipaque 350 (iohexol) nonionic water-soluble contrast as a single exam dose. The ajay a was post processed with a variety of visualization algorithms including full volume maximum intensi ty projection and sliding thin slab reformation. Using automated exposure control and adjustment of t he mA and/or kV according to patient size, radiation dose was kept as low as reasonably achievable to obtain optimal diagnostic quality images. DICOM format image data is available electronically for r eview and comparison. FINDINGS: Pulmonary Arteries: No filling defects are seen in the pulmonary arteries out to the subsegmental ve ssels. The left and right pulmonary arteries are normal in diameter. Lung: Complete consolidation and volume loss throughout the left lung. No air is seen in the left br onchus from 1.2 cm beyond the toro. Compressive atelectasis/infiltrate adjacent to the right pleura l effusion. Several segments of the right upper lobe remaining aerated. Effusion: Large bilateral pleural effusions. Mediastinum: No evidence of mediastinal or hilar adenopathy. Other: The axilla is unremarkable. CONCLUSION: 1. The study is negative for pulmonary embolism. 2. White out of the left chest with collapse of the left lung and large left pleural effusion. 3. Large right pleural effusion with associated compressive atelectasis/infiltrate at the junction w ith the effusion. Electronically signed by: Bryan Quezada MD Board Certified Radiologist 07/24/2018 12:26 PM EST
[2018-07-24] MEDS ORDERED: Vancomycin Consult Pharmacy OTHER PRN (12:30)
[2018-07-24] MEDS: Sod Chloride 0.9% Inj 1,000 ML IV.CONT SCH (13:30)
[2018-07-24 13:40] LABS: ABG Base Excess 9.6 mmol/L (-2-2); ABG PCO2 93 mmHg (38-42); ABG PO2 83 mmHg (61-120)
[2018-07-24 13:47] LABS: Bacteria,Urine Many /hpf; Bilirubin,Urine Negative (Negative); Clarity,Urine Cloudy (Clear); Color,Urine Amber (Yellw/Straw); Glucose,Urine (UA) Negative (Negative); Hyaline Casts,Urine 9 /lpf (0-3); Leukocyte Esterase,Urine Large (Negative); Nitrite,Urine Negative (Negative); Specific Gravity,Urine 1.036 (1.002-1.035)
[2018-07-24 13:58] LABS: Thyroid Stimulating Hormone 1.91 uIU/mL (0.358-3.740); Troponin I 0.05 ng/mL (0.02-0.05)
[2018-07-24] MEDS: MethylPREDNISolone Sod Succinate Inj 40 MG/ML Vial IV.PUSH SCH ×2 (14:06→21:58)
--- NOTE | 2018-07-24 14:16 | P.HPCC ---
History of Present Illness Service: ICU Primary Care Physician: UNKNOWN Chief Complaint: Altered mental status History of Present Illness: This is a 78-year-old morbidly obese male that was found semi-conscious early this a.m. . Patient normally wears BiPAP at night and was found semi-conscious with the mass is not connected to the hose providing oxygen and positive pressure. The patient's O2 saturation upon presentation by EMS was in the 50s. The patient was placed on a nonrebreather mask and the patient's O2 saturation went to 85% the patient was emergently transported to [facility] ED. upon arrival the patient was noted to have documentation from [facility] that he was DNR. Care was stat consulted, as obtained revealed patient was indeed DNR status, continued attempts made by emergency room physician , Dr. Jaime as well as palliative care merchandising team lead Ms. Annamarie Angeles for clarification. imaging and laboratory studies were performed. The patient was noted to be in acute hypercapnic respiratory failure with a pH of 7.10 and a PCO2 of 122 the patient was placed on BiPAP at 100% O2 saturation was approximately 92-93% a CTA Pulmonary was performed stat which revealed large bilateral left pleural effusion and as well as large bilateral right pleural effusion. Patient's medical history also is significant for a history of chronic A. fib rate controlled hypertension, hyperlipidemia,'s schizoaffective disorder, and Alzheimer's disease peer patient also has COPD and has had a history of MRSA. Critical care medicine was consulted CT angios pulmonary results revealed a large pleural effusions per I contacted interventional radiology and spoke with Dr. Lujan plan for placement of bilateral pigtail drains for large pleural effusions. Palliative care was also contacted I spoke with Ms. Annamarie Angeles, they made multiple attempts to communicate with healthcare surrogate. Laboratory results reveal a lactic acidosis the patient was provided empiric antibiotics to include aztreonam, vancomycin and Flagyl. The patient was maintained on BiPAP in the ED, upon my arrival the patient did have spontaneous eye opening when stimulated nodding head to yes and no questions per the patient was on BiPAP 15/5 100% with O2 saturation 92/93%. - Diagnosis (1) Pleural effusion Inpatient Certification: I certify that the inpatient services were ordered in accordance with Medicare regulations governing the order. This includes certification that hospital inpatient services are reasonable and necessary and in the case of services not specified as inpatient-only under 42 CFR 419.22(n), that they are appropriately provided as inpatient services in accordance to with the 2-midnight benchmark under 43 CFR 412.3(e) Estimated Total Length of Stay (Days): 5 Plans for Post Hospital Care: Not yet determined Review of Systems unobtainable due to mental status PMFSH - History History Provided By: Medical Record - Medical History Medical History: Medical History (Last Reviewed 07/24/18 @ 09:41 by Nataly Jaime) Alzheimer disease Anxiety COPD (chronic obstructive pulmonary disease) Dysphagia GERD (gastroesophageal reflux disease) Hernia Hyperlipemia Hypertension Hypothyroidism MRSA (methicillin resistant Staphylococcus aureus) Sepsis UTI (urinary tract infection) - Surgical History Surgical History: Surgical History (Last Reviewed 07/24/18 @ 09:41 by Nataly Jaime) H/O prostatectomy History of urostomy - Family History Family History: Family History (Last Reviewed 07/24/18 @ 09:41 by Nataly Jaime) Brother Pancreatic cancer - Tobacco History Smoking Status: Unknown if ever smoked Tobacco Type: Cigarettes - Alcohol History How Often Do You Have a Drink Containing Alcohol: Unable to Obtain - Substance Use History Substance History: Unable to Obtain - Travel History Recent Travel in the [place] Within the Last 8 Weeks: No Recent Travel Out of the Country Within the Last 8 Weeks: No - Immunization History Tetanus Immunization: Unable to Assess Medications and Allergies Active Medications: Active Medications Acetazolamide Sodium (Diamox Inj) 250 mg IV.PUSH ONCE ONE Stop: 07/24/18 13:42 Acetylcysteine (Mucomyst 20% Neb) 2 ml NEB Q4HR NEB RODOLFO Stop: 07/25/18 20:01 Acetylcysteine (Mucomyst 10% Neb) 2 ml NEB Q4HR NEB RODOLFO Al Hydroxide/Mg Hydroxide (Milk Of Magnesia Liq) 30 ml PO Q12H PRN PRN Reason: Mild Constipation Albuterol (Duoneb Neb (Rodolfo)) 1 ampul NEB Q4HR NEB RODOLFO Albuterol (Duoneb Neb (Prn)) 1 ampul NEB Q2HR NEB PRN PRN Reason: WHEEZING Bisacodyl (Dulcolax Supp) 10 mg RECTAL DAILY PRN PRN Reason: SEVERE CONSITIPATION Chlorhexidine Gluconate (Chlorhexidine 2% Cloth) 3 pack TOPICAL DAILY@0400 [facility] Stop: 07/30/18 03:59 Chlorhexidine Gluconate (Chlorhexidine 2% Cloth) 3 pack TOPICAL DAILY@0400 PRN PRN Reason: Extra cloth needed Stop: 07/30/18 03:59 Dextrose (D50w Vial) 50 ml IV.PUSH UNSCH PRN PRN Reason: PER HYPOGLYCEMIA PROTOCOL Famotidine (Pepcid Pf Inj) 20 mg IV.PUSH Q12HR RODOLFO Glucagon (Glucagon Inj) 1 mg OTHER PRN PRN PRN Reason: for Hypoglycemia Protocol Heparin Sodium (Porcine) (Heparin Inj) 5,000 units SQ Q12H RODOLFO Magnesium Sulfate 4 gm/ Sodium (Chloride) 100 mls @ 50 mls/hr IV.SIG UNSCH PRN PRN Reason: For Magnesium 0.9 - 1.1 mg/dL Magnesium Sulfate 2 gm/ Sodium (Chloride) 100 mls @ 50 mls/hr IV.SIG UNSCH PRN PRN Reason: For Magnesium 1.2 - 1.6 mg/dL Sodium Chloride (Ns Inj) 1,000 mls @ 42 mls/hr IV.CONT .[id number] [facility] Last Admin: 07/24/18 13:30 Dose: 42 mls/hr Potassium Chloride (Kcl 40 Meq Premix Inj) 40 meq in 100 mls @ 50 mls/hr IV.SIG Q2H PRN PRN Reason: For Potassium 2.8 - 3.2 mEq/L Potassium Chloride (Kcl 20 Meq Premix Inj) 20 meq in 100 mls @ 50 mls/hr IV.SIG Q2H PRN PRN Reason: For Potassium 3.3 - 3.5 mEq/L Potassium Chloride (Kcl 40 Meq Premix Inj) 40 meq in 100 mls @ 25 mls/hr IV.SIG UNSCH PRN PRN Reason: For Potassium 3.3 - 3.5 mEq/L Potassium Phosphate 30 mmol/ (Sodium Chloride) 260 mls @ 42 mls/hr IV.SIG UNSCH PRN PRN Reason: SEE LABEL COMMENTS Sodium Phosphate 30 mmol/ (Sodium Chloride) 260 mls @ 42 mls/hr IV.SIG UNSCH PRN PRN Reason: For Phosphorus < 2.5 mg/dL Potassium Chloride (Kcl 20 Meq Premix Inj) 20 meq in 100 mls @ 50 mls/hr IV.SIG Q2H PRN PRN Reason: For Potassium 2.8 - 3.2 mEq/L Aztreonam 1,000 mg/ Sodium (Chloride) 100 mls @ 200 mls/hr IV.SIG Q8H RODOLFO Metronidazole/Sodium Chloride (Flagyl 500 Mg Inj) 100 mls @ 100 mls/hr IV.SIG Q8H RODOLFO Insulin Aspart (Novolog Insulin Correctional Sugar Inj) 0 unit SQ Q6HR RODOLFO; Protocol Lactulose (Lactulose Liq) 30 ml PO DAILY PRN PRN Reason: SEVERE CONSITIPATION Magnesium Oxide (Mag-Ox) 800 mg PO UNSCH PRN PRN Reason: For Magnesium 1.2 - 1.6 mg/dL Methylprednisolone Sodium Succinate (Solumedrol Inj) 60 mg IV.PUSH Q8HR RODOLFO Montelukast Sodium (Singulair) 10 mg PO HS RODOLFO Ondansetron HCl (Zofran Inj) 4 mg IV.PUSH Q6H PRN PRN Reason: NAUSEA OR VOMITING Pharmacy Profile Note (Vancomycin Consult Pharmacy) 1 each OTHER UNSCH PRN PRN Reason: Pharmacy to dose Potassium Chloride (Kcl Liq) 40 meq PO UNSCH PRN PRN Reason: Potassium level 3.3-3.5 mEq/L Potassium Chloride (Kcl Liq) 40 meq PO UNSCH PRN PRN Reason: POTASSIUM LESS THAN 3.5 Potassium Phosphate (K-Phos Original) 2,000 mg PO Q4H PRN PRN Reason: Phosphorus Less Than 2.5 mg/dL Potassium Phosphate (K-Phos Original) 2,000 mg PO UNSCH PRN PRN Reason: SEE LABEL COMMENTS Senna/Docusate Sodium (Jeimy-Colace) 1 tab PO BID [facility] Sennosides (Senokot) 17.2 mg PO Q12H PRN PRN Reason: Moderate Constipation Sodium Chloride (Ns Flush) 2 ml IV.FLUSH BID [facility] Sodium Chloride (Ns Flush) 2 ml IV.FLUSH PRN PRN PRN Reason: FLUSH AFTER USING IV ACCESS Allergies Allergy/AdvReac Type Severity Reaction Status Date / Time penicillin G Allergy Severe as a child Verified 01/18/18 17:33 Home Medications Medication Instructions Recorded Confirmed Type albuterol sulfate 2.5 mg INHALATION Q2HR PRN 01/18/18 07/24/18 History alum-mag hydroxide-simeth [Mag-Al 10 ml PO QID 01/18/18 07/24/18 History Plus Extra Strength] aspirin 81 mg PO DAILY 01/18/18 07/24/18 History atorvastatin 40 mg PO HS 01/18/18 07/24/18 History budesonide 0.5 mg INHALATION Q12H 01/18/18 07/24/18 History ipratropium-albuterol 3 ml INHALATION QID 01/18/18 07/24/18 History levothyroxine 50 mcg PO DAILY 01/18/18 07/24/18 History lisinopril 10 mg PO DAILY 01/18/18 07/24/18 History loperamide [Imodium A-D] 2 mg PO DIRECTED PRN 01/18/18 07/24/18 History loratadine [Claritin] 10 mg PO DAILY 01/18/18 07/24/18 History magnesium hydroxide [Milk of 30 ml PO Q6HR PRN 01/18/18 07/24/18 History Magnesia] montelukast [Singulair] 10 mg PO QPM 01/18/18 07/24/18 History polyethylene glycol 3350 [Miralax] 17 gm PO DAILY PRN 01/18/18 07/24/18 History polyvinyl alcohol 2 drp EACH EYE Q4HR PRN 01/18/18 07/24/18 History quetiapine [Seroquel] 50 mg PO BID 01/18/18 07/24/18 History donepezil [Aricept] 23 mg PO HS 07/24/18 07/24/18 History ferrous sulfate [FerrouSul] 325 mg PO TID 07/24/18 07/24/18 History folic acid 0.4 mg PO DAILY 07/24/18 07/24/18 History memantine [Namenda] 5 mg PO BID 07/24/18 07/24/18 History Results - Labs CBC & Chem 7: 07/24/18 09:20 07/24/18 09:20 Labs: Short CBC 07/24/18 Range/Units 09:20 WBC 13.9 H (4.0-11.0) th/mm3 Hgb 12.3 L (13.0-17.0) gm/dL Hct 38.5 L (39.0-51.0) % Plt Count 271 (150-450) th/mm3 BMP 07/24/18 09:20 Sodium 135 L Potassium 5.1 Chloride 94 L Carbon Dioxide 38.5 H BUN 16 Creatinine 1.03 Calcium 8.7 Cardiac Enzymes 07/24/18 Range/Units 09:20 Troponin I Less than 0.02 L (0.02-0.05) ng/mL Liver Function 07/24/18 Range/Units 09:20 Total Bilirubin 0.4 (0.2-1.0) mg/dL AST 20 (15-37) U/L ALT 31 (12-78) U/L Alkaline Phosphatase 97 (45-117) U/L Albumin 3.2 L (3.4-5.0) g/dL - Imaging Impressions Chest X-Ray 07/24/18 09:22 CONCLUSION: Interval development of complete whiteout of the left hemithorax and opacity involving the upper two thirds of the right hemithorax. Chest CTA 07/24/18 11:17 CONCLUSION: 1. The study is negative for pulmonary embolism. 2. White out of the left chest with collapse of the left lung and large left pleural effusion. 3. Large right pleural effusion with associated compressive atelectasis/ infiltrate at the junction with the effusion. Exam Vital signs: Vital Signs 07/24/18 09:19 07/24/18 09:45 07/24/18 10:04 Temperature Pulse Rate 103 H Respiratory Rate 29 H Blood Pressure 151/67 H Pulse Oximetry 87 L 96 96 07/24/18 10:08 07/24/18 11:00 07/24/18 11:11 Temperature 97.7 F Pulse Rate 106 H 103 H 102 H Respiratory Rate 20 Blood Pressure 126/56 L 116/65 Pulse Oximetry 96 94 L 07/24/18 12:11 07/24/18 12:15 Temperature Pulse Rate 68 89 Respiratory Rate 19 Blood Pressure 116/65 Pulse Oximetry 96 Intake & Output 07/23/18 07/24/18 07/24/18 18:59 06:59 18:59 Intake Total 450 / 450 Balance 450 / 450 Weight 117.934 kg Intake: IV 450 / 450 Azactam Inj 2 GM In NS Inj 100 100 / 100 ML @ 200 mls/hr IV.SIG STAT STA Rx#:[id number] Vancomycin Inj 1,000 MG In NS 250 / 250 Inj 250 ML @ 250 mls/hr IV.SIG STAT STA Rx#:[id number] Flagyl 500 MG Inj 100 ML @ 100 100 / 100 mls/hr IV.SIG STAT STA Rx#: [id number] - Constitutional moderate distress, morbidly obese, chronically ill appearing - Routine HEENT Exam Head: Present: normocephalic, atraumatic Eye: Present: EOMI, PERRL, normal accommodation, conjunctivae pink ENT: Present: mucous membranes moist, external ear normal - Routine Neck Exam Present: supple (Unable to assess JVD secondary to body habitus) - Routine Respiratory Exam Present: accessory muscle use, decreased breath sounds, distant breath sounds - Routine Cardiovascular Exam Present: irregular rhythm - Routine Abdominal Exam Present: soft, normoactive bowel sounds (Obese), surgical scars (Urostomy bag draining) - Routine Extremities Exam Present: edema (Edema bilateral upper extremities 2+), full ROM, pulses intact, normal capillary refill (Noted venous stasis bilateral lower extremities) - Routine Skin Exam Present: intact, dry, cracked - Routine Neurological Exam Present: altered mental status, vision grossly intact, hearing grossly intact Caprini VTE Risk Assessment Caprini VTE Risk Assessment: Moderate/High Risk (score >= 2) Caprini Risk Assessment Model: Point Value = 1 Point Value = 2 Point Value = 3 Point Value = 5 Age 41-60 Minor surgery BMI > 25 kg/m2 Swollen legs Varicose veins or History of unexplained or recurrent spontaneous Oral contraceptives or hormone replacement Sepsis (< 1 month) Serious lung disease, including pneumonia (< 1 month) Abnormal pulmonary function Acute myocardial infarction Congestive heart failure (< 1 month) History of inflammatory bowel disease Medical patient at bed rest Age 61-74 Arthroscopic surgery Major open surgery (> 45 min) Laparoscopic surgery (> 45 min) Malignancy Confined to bed (> 72 hours) Immobilizing plaster cast Central venous access Age >= 75 History of VTE Family history of VTE Factor V Leiden Prothrombin [id number] Lupus anticoagulant Anticardiolipin antibodies Elevated serum homocysteine Heparin-induced thrombocytopenia Other congenital or acquired thrombophilia Stroke (< 1 month) Elective arthroplasty Hip, pelvis, or leg fracture Acute spinal cord injury (< 1 month) Prophylaxis Regimen: Total Risk Factor Score Risk Level Prophylaxis Regimen 0-1 Low Early ambulation 2 Moderate Order ONE of the following: *Sequential Compression Device (SCD) *Heparin 5000 units SQ BID 3-4 Higher Order ONE of the following medications: *Heparin 5000 units SQ TID *Enoxaparin/Lovenox 40 mg SQ daily (WT < 150 kg, CrCl > 30 mL/min) *Enoxaparin/Lovenox 30 mg SQ daily (WT < 150 kg, CrCl > 10-29 mL/min) *Enoxaparin/Lovenox 30 mg SQ BID (WT < 150 kg, CrCl > 30 mL/min) AND/OR *Sequential Compression Device (SCD) 5 or more Highest Order ONE of the following medications: *Heparin 5000 units SQ TID (Preferred with Epidurals) *Enoxaparin/Lovenox 40 mg SQ daily (WT < 150 kg, CrCl > 30 mL/min) *Enoxaparin/Lovenox 30 mg SQ daily (WT < 150 kg, CrCl > 10-29 mL/min) *Enoxaparin/Lovenox 30 mg SQ BID (WT < 150 kg, CrCl > 30 mL/min) AND *Sequential Compression Device (SCD) Assessment and Plan - Problem List (1) Pleural effusion Code(s): J90 - Pleural effusion, not elsewhere classified Status: Acute - Assessment and Plan Plan: Assessment This is a 78-year-old super morbidly obese gentleman in obvious respiratory distress with complete nearly complete opacification of bilateral lung lopez with large noted pleural effusions left and right . The patient has a DNR status, and cannot be intubated. Inability to reach healthcare surrogate at this time for clarification. Aggressive measures taken. Pulmonology consulted , case discussed with Dr. Varela. Invasive Radiology consult Case discussed with Dr. Lujan plan for placement of bilateral pigtail chest tubes for draining large pleural effusions. Patient has significant respiratory compromise. Plan by systems: Neurologic: Alzheimer's Schizoaffective disorder Altered mental status Neurochecks per ICU protocol Avoid sedatives Hold patient's home meds at this time Obtain ammonia level, T4, TSH level Respiratory: Severe respiratory acidosis COPD Bilateral pleural effusions Acute hypercapnic respiratory failure Maintain O2 sat greater than 92 % Maintain BiPAP at night Duo nebs and acetylcysteine every 4 hours scheduled dose IR consulted for placement of bilateral chest tubes for draining bilateral large pleural effusions Maintain head of bed greater than 30 Continue budesonide-home medication Cardiovascular: Hypertension Hyperlipidemia Chronic atrial fibrillation Maintain MAP greater than 65 mmHg Continue ASA 81 mg, and atorvastatin 40 mg at bedtime when clinically appropriate. EKGatrial fibrillation Renal: Urostomy -- Strict I/Os FEN/GI: Super morbid obesity Maintain n.p.o. status Obtain lipid panel Zofran for nausea Famotidine for GI prophylaxis Obtain formal swallow when clinically indicated by speech therapy Heme/ID: Lactic acidemia Leukocytosis Sepsis Monitor CBC Obtain blood urine and sputum culture Obtain strep pneumo and influenza A/B Empiric antibiotics provided aztreonam, vancomycin and Flagyl-continue will de- escalate upon speciation of cultures History of recurrent UTI Follow-up lactic acid until clear Endocrine: Glucose monitoring per ICU protocol -- SSI Prophylaxis: GI Prophylaxis Famotidine DVT Prophylaxis -- SCDs Heparin subcu Lines: Peripheral IVs x2. Central line if indicated Palliative care has been consulted the case was discussed with Ms. Annamarie Angeles. Patient remains DNR, medical records reviewed. Consideration for hospice clarification of goals to be discussed with healthcare surrogate. Continue attempts made to locate healthcare surrogate. Dispo: My billing statement This patient remains critically ill with one or more organ systems which are or may become a threat to life. I have spent in excess of 65 minutes discontinuously in the care and management of this patient. This time is exclusive of procedures, and includes, but is not limited to, evaluation of the patient, review of the medical record, discussions with family, consultants, nursing staff, or respiratory therapy, and documentation in the medical record. Code Status: DNR Discussed Condition With: Dr. Jaime ED physician, Ms. Annamarie Angeles palliative care merchandising team lead, Dr. Lujan invasive radiology. Multiple attempts made to locate healthcare surrogate, unsuccessful.
--- NOTE | 2018-07-24 14:17 | MB ---
cc: Sushma Souza MD DATE: 07/24/2018 HISTORY OF PRESENT ILLNESS: The patient is a 78-year-old male alf resident with multiple medical comorbidities which include morbid obesity, COPD, Alzheimer disease, GERD, hypertension, hyperlipidemia, and hypothyroidism. He was brought in to [facility] ED for altered mental status. The patient is NO CODE/DNR. He also has history of obstructive sleep apnea and uses a CPAP at night. This morning when the fire rescue arrived, they found his CPAP was unplugged. When EMS arrived, he was found to have O2 saturation at 50% and he was placed on 10-liter nasal cannula with saturation improved to 84-85%. ABG was performed in the ER, which showed acute hypoxemic and hypercapnic respiratory failure with a pH of 7.10, CO2 of 122, PO2 of 87, bicarbonate 37, saturation of 91%. A chest x-ray in the ER showed complete whiteout of the left hemithorax and opacity involving upper two-thirds of the right hemithorax. Subsequently, the patient underwent CT angiogram of the chest which showed no evidence of pulmonary embolism; however, it showed a large left pleural effusion and large right pleural effusion with associated compressive atelectasis/infiltrate. He is being admitted to the [facility] and IR consulted for bilateral thoracentesis with possible chest tube placements. When seen, the patient is awake; however, he is confused, on the BiPAP. Most of the history was obtained from reviewing medical records as the patient is a poor historian. His laboratory data is significant for leukocytosis with a WBC of 13.9 and lactic acid of 2.5. In the ER, he was given Flagyl, vancomycin, aztreonam and Mucomyst. PAST MEDICAL HISTORY: Significant for morbid obesity, COPD, Alzheimer dementia, GERD, hypertension, hyperlipidemia, hypothyroidism, obstructive sleep apnea. PAST SURGICAL HISTORY: Previous urostomy, previous prostatectomy. ALLERGIES: PENICILLIN. FAMILY HISTORY: Brother had pancreatic cancer. SOCIAL HISTORY: The patient is a alf resident. Unknown history of tobacco or alcohol use. HALFWAY MEDICATIONS: 1. Seroquel 2. Namenda. 3. Aricept. 4. Ferrous sulfate. 5. Levothyroxine. 6. MiraLAX. 7. Claritin. 8. Singulair. 9. Aspirin. 10. Albuterol. REVIEW OF SYSTEMS: As per HPI. The rest of review of systems is limited as the patient is a poor historian. PHYSICAL EXAMINATION: GENERAL: A 78-year-old male on a BiPAP, critically ill. VITAL SIGNS: Temperature 97.7, pulse 89, respiratory rate 19, blood pressure 116/65, saturation 94% to 96% on a BiPAP. HEENT: Atraumatic, normocephalic. Pupils are equal, round, reactive to light and accommodation. Extraocular muscles intact. Conjunctivae pink, anicteric sclerae. Oral mucosa within normal. NECK: Supple. No JVD. No lymphadenopathy. Trachea midline. CARDIOVASCULAR: Tachycardic. Normal S1, S2. No murmurs, rubs or gallops noted. PULMONARY: Bilateral air entry, overall diminished. ABDOMEN: Soft, obese, nontender, nondistended, positive bowel sounds. EXTREMITIES: No cyanosis or clubbing. Trace edema. NEUROLOGIC: Altered; however, the patient is awake. LABORATORY DATA: Sodium 135, potassium 5.1, chloride 94, CO2 of 38, BUN 16, creatinine 1.0, glucose of 258. Lactic acid 2.5. Troponin less than 0.02. Lipase 64, albumin 3.2. WBC 13.9, hemoglobin 12, hematocrit 38, platelet count 271. RADIOGRAPHIC STUDIES: CT of the chest showed no evidence of pulmonary embolism; however, it showed bilateral pleural effusions with compressive atelectasis and infiltrate. IMPRESSION: 1. Acute hypoxemic and hypercapnic respiratory failure. 2. Large bilateral pleural effusion with compressive atelectasis. 3. Morbid obesity. 4. Obstructive sleep apnea. 5. Leukocytosis. 6. Chronic obstructive pulmonary disease. 7. Alzheimer dementia. 8. Hypertension. 9. Hyperlipidemia. 10. Hypothyroidism. 11. Gastroesophageal reflux disease. RECOMMENDATIONS: 1. Continue with oxygen and maintain saturations above 92%. 2. Bronchodilators. Continue with DuoNeb every 4 hours plus every 2 hours p.r.n. for shortness of breath. We will add Mucomyst 10% nebulizers at 2 mL every 4 hours. 3. Continue with BiPAP. The patient is NO CODE/DNR, confirmed by Palliative Care. 4. Continue with Singulair 10 mg daily. We will give Diamox 250 mg IV x 1. 5. Continue with antibiotics in the form of vancomycin and aztreonam. Of note, THE PATIENT IS ALLERGIC TO PENICILLIN. Monitor for signs of infections. He has nasal washing screening for influenza negative. Obtain sputum culture. Follow up on blood cultures and check and check strep pneumonia and legionella urinary antigen. 6. Patient to undergo a thoracentesis with chest tube placements by IR. We will send pleural fluid for analysis and culture. 7. Place on Solu-Medrol 60 mg IV every 8 hours. 8. Gastrointestinal and deep venous thrombosis prophylaxis. 9. Further recommendations will be based on hospital course. Thank you for consultation and allowing us to participate in this patient's care. Palliative Care was consulted and the patient was confirmed NO CODE/DNR. Sushma Souza MD AI/eliza , 01:41 PM , 01:56 PM
--- NOTE | 2018-07-24 15:11 | CT ---
EXAM DATE: 07/24/2018 2:36 PM EST AGE/SEX: 78 years / Male INDICATIONS: Altered mental status. CLINICAL DATA: This is the patient's initial encounter. Patient reports that signs and symptoms have been present for 1 day and indicates a pain score of 0/10. MEDICAL/SURGICAL HISTORY: Alzheimer's disease. Chronic obstructive pulmonary disease. Hypertensio n. MRSA. None. RADIATION DOSE: 58.89 CTDI (mGy) ;Tabletop exam [place] [facility] [place]21[place]. . TECHNIQUE: CT of the head without contrast. Using automated exposure control and adjustment of the mA and/or kV according to patient size, radiation dose was kept as low as reasonably achievable to ob tain optimal diagnostic quality images. DICOM format image data is available electronically for revi ew and comparison. FINDINGS: There is no evidence for intracranial hemorrhage, mass effect, mass lesions, or edema. The visualize d bony structures appear intact. Slight degree of brain atrophy is seen. Slight periventricular whit e matter changes are seen nonspecific mostly consistent with chronic small vessel ischemic changes. There are no signs of acute infarction for technique. There is encephalomalacia right frontal lobe no t changed. CONCLUSION: Slight chronic small vessel ischemic and atrophic changes. Electronically signed by: Patricio Moreno MD Board Certified Radiologist 07/24/2018 3:09 PM EST
--- NOTE | 2018-07-24 15:12 | XR ---
EXAM DATE: 07/24/2018 2:05 PM EST AGE/SEX: 78 years / Male INDICATIONS: Difficulty breathing. CLINICAL DATA: This is the patient's subsequent encounter. Patient reports that signs and symptoms h ave been present for 1 day and indicates a pain score of Nonresponsive. MEDICAL/SURGICAL HISTORY: Non-responsive. Non-responsive. COMPARISON: [facility], CHEST 1V SINGLE AP, 07/24/2018. . FINDINGS: There is no change in complete opacification of the left hemithorax and extensive opacification of ri ght hemithorax is also seen slightly worse the prior study. CONCLUSION: Slight worsening opacification of the right lung with less aeration right apex. Electronically signed by: Patricio Moreno MD Board Certified Radiologist 07/24/2018 3:10 PM EST
[2018-07-24] MEDS: Heparin - SQ 10,000 UNITS/ML Vial SQ SCH (16:38)
[2018-07-24] MEDS ORDERED: Lidocaine 1%/Epinephrine 1:100,000 Inj 20 ML Vial I-DERMAL ONE (18:23)
[2018-07-24] MEDS: Insulin NovoLOG Aspart Correctional Sugar Inj SQ SCH (18:46)
[2018-07-24] MEDS: RESP: Acetylcysteine 10% 4 ML Neb NEB SCH ×3 (18:48→23:43)
[2018-07-24 19:46] LABS: Total Protein,Pleural Fluid 2.4 gm/dL
[2018-07-24 20:17] LABS: Lymphocytes,Pleural Fluid 66 %; Mesothelial,Pleural Fluid 9 %; Monocytes,Pleural Fluid 7 %; Neutrophils,Pleural Fluid 15 %
[2018-07-24 20:19] LABS: RBC,Pleural Fluid 12815 /mm3 (0-0)
[2018-07-24] MEDS: Famotidine PF Inj 20 MG/2 ML Vial IV.PUSH SCH (20:54)
[2018-07-24] MEDS: Montelukast 10 MG Tablet PO SCH (21:11)
[2018-07-24] MEDS: Senna/Docusate Sodium 8.6/50 MG Tablet PO SCH (21:11)
[2018-07-25] MEDS: Insulin NovoLOG Aspart Correctional Sugar Inj SQ SCH ×5 (00:16→23:37)
[2018-07-25] MEDS: Heparin - SQ 10,000 UNITS/ML Vial SQ SCH ×2 (00:24→12:57)
[2018-07-25 03:06] LABS: Alanine Aminotransferase 24 U/L (12-78); Albumin 2.8 g/dL (3.4-5.0); Anion Gap 5 meq/L (5-15); Aspartate Aminotransferase 15 U/L (15-37); Blood Urea Nitrogen 22 mg/dL (7-18); Calcium 8.3 mg/dL (8.5-10.1); Carbon Dioxide 36.5 meq/L (21.0-32.0); Chloride 97 meq/L (98-107); Glomerular Filtration Rate 79 mL/min (>89); Glucose,Random 115 mg/dL (74-106); Magnesium 2.5 mg/dL (1.5-2.5); Potassium 5.5 meq/L (3.5-5.1); Sodium 138 meq/L (136-145)
[2018-07-25] MEDS: Vancomycin Inj 1,250 MG in Sodium Chlor 0.9% Inj 250 ML IV.SIG SCH ×2 (03:31→15:02)
[2018-07-25] MEDS: Chlorhexidine Gluconate 2% 1 Pack (2 Cloths) TOPICAL SCH (03:33)
[2018-07-25 03:34] LABS: Alkaline Phosphatase 76 U/L (45-117); Phosphorus 3.7 mg/dL (2.5-4.9); Total Protein 6.5 g/dL (6.4-8.2)
[2018-07-25] MEDS ORDERED: Chlorhexidine Gluconate 2% 1 Pack (2 Cloths) TOPICAL PRN (04:00)
[2018-07-25 04:16] LABS: Baso # (Auto) 0.1 th/mm3 (0.0-0.2); Baso % (Auto) 0.4 % (0.0-2.0); Hematocrit 33.1 % (39.0-51.0); Hemoglobin 10.6 gm/dL (13.0-17.0); Lymph # (Auto) 0.6 th/mm3 (1.0-4.8); Lymph % (Auto) 3.9 % (9.0-44.0); Mean Corpuscular Volume 93.8 fL (80.0-100.0); Mean Platelet Volume 8.6 fL (7.0-11.0); Mono # (Auto) 0.6 th/mm3 (0.0-0.9); Mono % (Auto) 4.3 % (0.0-8.0); Neut % (Auto) 91.4 % (16.0-70.0); Platelet Count 188 th/mm3 (150-450); Red Blood Count 3.53 mil/mm3 (4.50-5.90); Red Cell Distribution Width 15.3 % (11.6-17.2); White Blood Count 14.2 th/mm3 (4.0-11.0)
[2018-07-25] MEDS: MethylPREDNISolone Sod Succinate Inj 40 MG/ML Vial IV.PUSH SCH ×3 (05:15→21:20)
--- NOTE | 2018-07-25 05:39 | XR ---
EXAM DATE: 07/25/2018 5:36 AM EST AGE/SEX: 78 years / Male INDICATIONS: Status post chest tube placement. CLINICAL DATA: This is the patient's subsequent encounter. Patient reports that signs and symptoms h ave been present for 2 days and indicates a pain score of Nonresponsive. MEDICAL/SURGICAL HISTORY: Non-responsive. Non-responsive. [place] [facility] [place]. . FINDINGS: Left chest pigtail thoracostomy tube overlying left mid chest. Right-sided thoracostomy tube does not appear to reach the pleural space. Aeration is significantly improved on both sides, however with co mplete or near complete clearance of the right lung and significant clearance on the left with some p ersistent consolidation and effusion at the left base. CONCLUSION: Improved aeration. The right thoracostomy tube does not appear to be in the chest cavity Electronically signed by: Chaparro Mora MD Board Certified Radiologist 07/25/2018 5:38 AM EST
--- NOTE | 2018-07-25 07:00 | CT ---
EXAM DATE: 07/24/2018 6:11 PM EST AGE/SEX: 78 years / Male INDICATIONS: Bilateral large pleural effusions CLINICAL DATA: This is the patient's initial encounter. Patient reports that signs and symptoms have been present for 1 day and indicates a pain score of 3/10. MEDICAL/SURGICAL HISTORY: Alzheimer's disease. Chronic obstructive pulmonary disease. Hyperte nsion. Hernia hypothyroidism Prostatectomy. Hysterectomy. DEVICE(S): 10 Fr Martínez . . [place] [facility] [place] PLCMT LEFT[place] 07/24/2018. . PROCEDURE : CT guided right chest tube placement. The risks, benefits and alternatives to the procedure were explained and verbal and written consent w as obtained. The site was prepped in sterile fashion. Full sterile technique was used, including ca p, mask, sterile gloves and gown and a large sterile sheet. Hand hygiene and 2% chlorhexidine and/or betadine/alcohol prep was utilized per protocol for cutaneous antisepsis. The skin and subcutaneous tissues were infiltrated with local anesthetic solution. Using automated exposure control and adjus tment of the mA and/or kV according to patient size, radiation dose was kept as low as reasonably ach ievable to obtain optimal diagnostic quality images. DICOM format image data is available electronic ally for review and comparison. With CT guidance the chest was punctured and the prescribed catheter was placed in the right lung bas e of the lung. Wall suction was applied. Post procedure images demonstrate satisfactory position of the tube. The catheter was sutured in place and a Percu-Stay was applied. The patient tolerated the procedure well and there were no complications. The patient was sent to pos t anesthesia recovery in stable condition. CONCLUSION: 1. Uncomplicated chest tube placement as above. Electronically signed by: Yazan Deleon MD Board Certified Radiologist 07/25/2018 6:58 AM EST
[2018-07-25] MEDS: RESP: Acetylcysteine 10% 4 ML Neb NEB SCH ×5 (07:27→20:03)
[2018-07-25] MEDS: Senna/Docusate Sodium 8.6/50 MG Tablet PO SCH ×2 (08:38→20:19)
[2018-07-25] MEDS: Famotidine PF Inj 20 MG/2 ML Vial IV.PUSH SCH ×2 (08:38→20:19)
--- NOTE | 2018-07-25 09:56 | P.PNPL ---
Subjective Interval history: Patient is more awake and alert this morning. s/p b/l CT placement yesterday by IR. CXR this morning showed improved aeration. Physical Exam Vital signs: Vital Signs 07/24/18 10:04 07/24/18 10:08 07/24/18 11:00 Temperature 97.7 F Pulse Rate 106 H 103 H Respiratory Rate 20 Blood Pressure 126/56 L 116/65 Pulse Oximetry 96 96 94 L 07/24/18 11:11 07/24/18 12:11 07/24/18 12:15 Temperature Pulse Rate 102 H 68 89 Respiratory Rate 19 Blood Pressure 116/65 Pulse Oximetry 96 07/24/18 13:08 07/24/18 14:59 07/24/18 16:59 Temperature Pulse Rate 68 90 114 H Respiratory Rate Blood Pressure 121/73 96/68 L Pulse Oximetry 96 96 07/24/18 17:00 07/24/18 17:09 07/24/18 17:11 Temperature 97.7 F Pulse Rate 104 H 104 H 92 H Respiratory Rate 25 H 31 H Blood Pressure 107/48 L 107/48 L Pulse Oximetry 100 07/24/18 17:39 07/24/18 18:00 07/24/18 18:22 Temperature Pulse Rate 99 H 103 H Respiratory Rate 30 H Blood Pressure 107/48 L Pulse Oximetry 100 100 07/24/18 19:00 07/24/18 19:53 07/24/18 20:00 Temperature 97.8 F Pulse Rate 83 94 H 71 Respiratory Rate 26 H 11 L 26 H Blood Pressure 106/55 L 116/54 L Pulse Oximetry 100 96 07/24/18 21:00 07/24/18 22:00 07/24/18 23:00 Temperature Pulse Rate 85 76 78 Respiratory Rate 31 H 27 H 27 H Blood Pressure 135/63 125/60 116/55 L Pulse Oximetry 90 L 98 97 07/24/18 23:43 07/25/18 00:00 07/25/18 00:33 Temperature 97.6 F Pulse Rate 110 H 80 Respiratory Rate 20 25 H Blood Pressure 125/56 L Pulse Oximetry 98 99 100 07/25/18 01:00 07/25/18 02:00 07/25/18 04:00 Temperature 98 F Pulse Rate 93 H 86 81 Respiratory Rate 30 H 20 Blood Pressure 125/56 L 110/58 L Pulse Oximetry 100 99 02/13/19 04:07 07/25/18 04:20 07/25/18 05:00 Temperature Pulse Rate 79 77 Respiratory Rate 18 21 Blood Pressure 114/63 Pulse Oximetry 98 99 07/25/18 06:00 07/25/18 07:00 07/25/18 08:00 Temperature 98.6 F Pulse Rate 77 91 H 81 Respiratory Rate 26 H 21 23 Blood Pressure 121/56 L 130/60 136/56 L Pulse Oximetry 100 99 100 07/25/18 08:01 07/25/18 09:00 Temperature Pulse Rate 75 92 H Respiratory Rate 27 H 42 H Blood Pressure 136/56 L 132/57 L Pulse Oximetry 100 99 Intake & Output 07/24/18 07/25/18 07/25/18 18:59 06:59 18:59 Intake Total 550 / 550 662.50 / 662.50 Output Total 2220 / 2220 1000 / 1000 Balance -1670 / -1670 -337.50 / -337.50 Weight 117.934 kg 120 kg Intake: IV 550 / 550 662.50 / 662.50 Azactam Inj 1,000 MG In NS Inj 200 / 200 100 ML @ 200 mls/hr IV.SIG Q8H BRETT Rx#:[id number] Azactam Inj 2 GM In NS Inj 100 100 / 100 ML @ 200 mls/hr IV.SIG STAT STA Rx#:[id number] Vancomycin Inj 1,000 MG In NS 250 / 250 Inj 250 ML @ 250 mls/hr IV.SIG STAT STA Rx#:[id number] Vancomycin Inj 1,250 MG In NS 262.50 / 262.50 Inj 250 ML @ 250 mls/hr IV.SIG Q12H BRETT Rx#:[id number] Flagyl 500 MG Inj 100 ML @ 100 100 / 100 200 / 200 mls/hr IV.SIG Q8H BRETT Rx#: [id number] Oral 0 / 0 Output: Urine 325 / 325 Urine Amount (Stoma) 900 / 900 Continent Urostomy 900 / 900 Chest Tube Drainage 1895 / 1895 100 / 100 #1 Left 1070 / 1070 50 / 50 #1 Right 825 / 825 50 / 50 Other: Date of Last Bowel Movement 07/24/18 07/24/18 07/24/18 # Bowel Movements 0 - Constitutional no acute distress, morbidly obese - Routine HEENT Exam Head: Present: normocephalic, atraumatic Eye: Present: EOMI, PERRL, normal accommodation, conjunctivae pink ENT: Present: mucous membranes moist - Routine Neck Exam Present: supple, full ROM, trachea midline - Routine Respiratory Exam Present: CTA bilaterally - Routine Cardiovascular Exam Present: RRR, S1, S2 - Routine Abdominal Exam Present: soft, normoactive bowel sounds - Routine Extremities Exam Present: edema, full ROM, pulses intact - Routine Neurological Exam Present: alert, oriented X3, CN II-XII intact Assessment and Plan - Assessment (1) Pleural effusion Code(s): J90 - Pleural effusion, not elsewhere classified Status: Acute - Plan 1. Acute hypoxemic and hypercapnic respiratory failure. 2. Large b/l pleural effusion with compressive atelectasis. s/p CT placement. 3. Morbid obesity. 4. Obstructive sleep apnea. 5. Leukocytosis. 6. COPD. 7. Alzheimer dementia. 8. Hypertension. 9. Hyperlipidemia. 10. Hypothyroidism. 11. GERD Plan Wean down oxygen as aryan and maintain sats> 90%. Bronchodilators(DuoNeb) Mucomyst 10% nebs 2 mL every 4 hours. Solumederol 60mg IV Q8 BIPAP PRN for resp distress Continue with Singulair 10 mg daily. Will give Diamox 500mg IV x1 s/p B/l CT placement by IR exudative effusion by LDH criteria. Monitor CT drainage. ? Right CT in pleura space on CXR from this morning discussed with Dr. Lujan from IR. Will keep it in for now since its still draining. Abx- vancomycin and aztreonam. Follow up on fluid cx. Monitor for signs of infections. Nasal washing screening for influenza negative. Strep pneumonia and legionella urinary antigen pending. GI/DVT prophylaxis. On Pepcid and Heparin SQ respectively. Palliative care is following. Code status: No code DNR.
--- NOTE | 2018-07-25 09:57 | CT ---
EXAM DATE: 07/24/2018 5:43 PM EST AGE/SEX: 78 years / Male INDICATIONS: Large bilateral pleural effusions CLINICAL DATA: This is the patient's initial encounter. Patient reports that signs and symptoms have been present for 1 day and indicates a pain score of 3/10. MEDICAL/SURGICAL HISTORY: Alzheimer's disease. Chronic obstructive pulmonary disease. Hyperte nsion. Hernia hypothyroidism Prostatectomy. urostomy DEVICE(S): 10 Fr [employer] . . COMPARISON: [facility] – [place], [place]ST EXPIRATION ONLY, 07/25/2018. . PROCEDURE : CT guided left chest tube placement. The risks, benefits and alternatives to the procedure were explained and verbal and written consent w as obtained. The site was prepped in sterile fashion. Full sterile technique was used, including ca p, mask, sterile gloves and gown and a large sterile sheet. Hand hygiene and 2% chlorhexidine and/or betadine/alcohol prep was utilized per protocol for cutaneous antisepsis. The skin and subcutaneous tissues were infiltrated with local anesthetic solution. Using automated exposure control and adjus tment of the mA and/or kV according to patient size, radiation dose was kept as low as reasonably ach ievable to obtain optimal diagnostic quality images. DICOM format image data is available electronic ally for review and comparison. With CT guidance the chest was punctured and the prescribed catheter was placed in the left lung base of the lung. Wall suction was applied. Post procedure images demonstrate satisfactory position of t he tube. The catheter was sutured in place and a Percu-Stay was applied. The patient tolerated the procedure well and there were no complications. The patient was sent to pos t anesthesia recovery in stable condition. CONCLUSION: 1. Uncomplicated chest tube placement as above. Electronically signed by: Yazan Deleon MD Board Certified Radiologist 07/25/2018 9:56 AM EST
--- NOTE | 2018-07-25 14:05 | P.PNPAL ---
Reason for Visit Reason for visit: a. To assist with evaluation and management of symptoms including: Dyspnea, anxiety b. To assist medical decision maker(s) with: better understanding of current medical conditions; weighing benefits/burdens of medical treatment options; making medical treatment decisions. Subjective Subjective/Interval History: This pt presented to the ED today 07/24/18, from [facility] for reported AMS. EMS reports supposed to use Bipap at night to sleep. Reported that when Rescue arrived to facility Bipap was unplugged, not known if was on overnight or not. reported pt initially A&O x 3, and hour or so before presentation c/o SOB, was given treatment and then became unresponsive. SPO2 50% on EMS arrival, 84-85% on 10L NC on way to ED. * ED: RR 29, afebrile. Hemodynamically stable, started on IVF. Started on BIPAP , noted with DNR copy at arrival. CT brain, CTA ordered. CXR = WBC 13.9 . Troponin neg. ABG= pH 7.10, PCO2 122, HCO3 37, BE 7.1. ED MD attempting to contact [facility] regarding tx goals. Unable to reach, continued on Bipap. Critical care consulted. Palliative Care consulted. Discuss prev admission interaction with critical care, ED MDs. I have attempted to reach [facility] Taran Mantilla on both numbers, several times on ayana #. On home # Mr Mantilla answers ,relayed message need to speak w her RE a patient that her is HCS for, request he call us back ALESSIA. She is going to try to reach him as well. Patient is seen in room no visitors present. He is minimally responsive on BiPAP. He opens his eyes briefly he does not follow any commands for me. Extremities are cool. He is pale. On BiPAP 100% FiO2. Respiratory rate 15-16. Met with patient in his room. He reports his breathing is better today. He complains of indigestion after eating, of note he is essentially lying flat in the bed. I encouraged him to sit up after meals to help alleviate this. He voices concerns with his bedbound status, he states the facility does not get him up out of bed which contributes to his worsening respiratory status. He seems to have limited insight regarding ongoing risks for respiratory decline. Of note, pt known to palliative service, this provider from 01/2018. 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 During that admission he was related for UTI, Pneumonia. He was on bipap, though failed bipap and was intubated. During hospital course episodes of a fib slow ventricular response (rate 30s while asleep). He was later medically extubated. He was a&o x 2-3, with very limited insight. He had known hx of dementia, schizoaffective disorder. During palliative interaction with [facility] Taran Mantilla at that time: "He indicates that back at the time of his mother and grandmother's illness patient had many conversations with him about never wanting to be on a ventilator, especially now wanting to be prolonged on a ventilator, and never wanting artificial measures such as etc. Gently explore with her off of the alternative to these measures if patient's condition worsen would be comfort measures and possibly hospice. Taran indicates in the past he has spoken with providers about hospice. He indicates generally patient seems to bounce back from his infections and other medical complications but that if he continues to deteriorate or does not improve he would likely invoke hospice to provide him comfort care at the nursing facility that he calls home. He requests the patient be made a DNR based on his known wishes and tells me that if the patient agreed to a breathing tube in the ER he probably thought it was just 1 of the masks and that he did not fully understand it would be a ventilator." Taran ultimately elected to continue medical tx short of CPR to try to get pt back to baseline, and if pt deteriorated or did not improve planned to request hospice. Advance Directives Health Care Surrogate Name and Number: Taran Mantilla [phone], Documented care wishes:: standard verbiage details :" No life sustaining treatments if : coma, vegetative , no change of recover, brain damage, completely dependent, confined to bed, vent etc, pain or other severe sx that cannot be relieved, or a condition that will cause to soon even with life sustaining tx". Objective Vital Signs: Vital Signs 07/24/18 14:59 07/24/18 16:59 07/24/18 17:00 Temperature Pulse Rate 90 114 H 104 H Respiratory Rate 25 H Blood Pressure 96/68 L Pulse Oximetry 96 07/24/18 17:09 07/24/18 17:11 07/24/18 17:39 Temperature 97.7 F Pulse Rate 104 H 92 H 99 H Respiratory Rate 31 H 30 H Blood Pressure 107/48 L 107/48 L 107/48 L Pulse Oximetry 100 100 07/24/18 18:00 07/24/18 18:22 07/24/18 19:00 Temperature Pulse Rate 103 H 83 Respiratory Rate 26 H Blood Pressure 106/55 L Pulse Oximetry 100 100 07/24/18 19:53 07/24/18 20:00 07/24/18 21:00 Temperature 97.8 F Pulse Rate 94 H 71 85 Respiratory Rate 11 L 26 H 31 H Blood Pressure 116/54 L 135/63 Pulse Oximetry 96 90 L 07/24/18 22:00 07/24/18 23:00 07/24/18 23:43 Temperature Pulse Rate 76 78 110 H Respiratory Rate 27 H 27 H 20 Blood Pressure 125/60 116/55 L Pulse Oximetry 98 97 98 07/25/18 00:00 07/25/18 00:33 07/25/18 01:00 Temperature 97.6 F Pulse Rate 80 93 H Respiratory Rate 25 H 30 H Blood Pressure 125/56 L 125/56 L Pulse Oximetry 99 100 100 07/25/18 02:00 07/25/18 04:00 07/25/18 04:07 Temperature 98 F Pulse Rate 86 81 Respiratory Rate 20 Blood Pressure 110/58 L Pulse Oximetry 99 98 07/25/18 04:20 07/25/18 05:00 07/25/18 06:00 Temperature Pulse Rate 79 77 77 Respiratory Rate 18 21 26 H Blood Pressure 114/63 121/56 L Pulse Oximetry 99 100 07/25/18 07:00 07/25/18 08:00 07/25/18 08:01 Temperature 98.6 F Pulse Rate 91 H 81 75 Respiratory Rate 21 23 27 H Blood Pressure 130/60 136/56 L 136/56 L Pulse Oximetry 99 100 100 07/25/18 09:00 07/25/18 10:00 07/25/18 11:00 Temperature Pulse Rate 92 H 87 83 Respiratory Rate 42 H 26 H 22 Blood Pressure 132/57 L 124/60 124/56 L Pulse Oximetry 99 100 100 0213/19 12:00 Temperature 98.4 F Pulse Rate 93 H Respiratory Rate 25 H Blood Pressure 121/56 L Pulse Oximetry 100 Intake & Output 07/24/18 07/25/18 07/25/18 18:59 06:59 18:59 Intake Total 550 / 550 662.50 / 662.50 100 / 100 Output Total 2220 / 2220 1000 / 1000 Balance -1670 / -1670 -337.50 / -337.50 100 / 100 Weight 117.934 kg 120 kg Intake: IV 550 / 550 662.50 / 662.50 100 / 100 Azactam Inj 1,000 MG In NS Inj 200 / 200 100 ML @ 200 mls/hr IV.SIG Q8H BRETT Rx#:[id number] Azactam Inj 2 GM In NS Inj 100 100 / 100 ML @ 200 mls/hr IV.SIG STAT STA Rx#:[id number] Vancomycin Inj 1,000 MG In NS 250 / 250 Inj 250 ML @ 250 mls/hr IV.SIG STAT STA Rx#:[id number] Vancomycin Inj 1,250 MG In NS 262.50 / 262.50 Inj 250 ML @ 250 mls/hr IV.SIG Q12H BRETT Rx#:[id number] Flagyl 500 MG Inj 100 ML @ 100 100 / 100 200 / 200 100 / 100 mls/hr IV.SIG Q8H BRETT Rx#: [id number] Oral 0 / 0 Output: Urine 325 / 325 Urine Amount (Stoma) 900 / 900 Continent Urostomy 900 / 900 Chest Tube Drainage 1895 / 1895 100 / 100 #1 Left 1070 / 1070 50 / 50 #1 Right 825 / 825 50 / 50 Other: Date of Last Bowel Movement 07/24/18 07/24/18 07/24/18 # Bowel Movements 0 Physical Exam: CONSTITUTIONAL/GENERAL: This is an obese, pale elderly male initially minimally responsive to exam though later verbal and partially oriented TUBES/LINES/DRAINS: Peripheral IV upper extremities, urostomy drainage bag SKIN: No jaundice, rashes, or lesions. Skin pale. No wounds seen anteriorly. Skin cool, dry. HEAD: Atraumatic. Normocephalic. EYES: Pupils equal and round and reactive. No scleral icterus. No injection or drainage. Fundi not examined. ENT: Nose without bleeding or purulent drainage. Unable to visualize oropharynx due to BiPAP mask NECK: Trachea midline. Very large wide neck/jaw. Supple, nontender. No palpable thyroid enlargement or nodularity. CARDIOVASCULAR: Irregular rate and rhythm. Atrial fib observed on bedside monitor. Rate controlled per no JVD. Referral pulses are faint. RESPIRATORY/CHEST: Symmetric, unlabored respirations via BiPAP mask. 100% FiO2. Respirations 15-16/min. Diminished air movement throughout. GASTROINTESTINAL: Abdomen soft, obese, no apparent tenderness, nondistended. No palpable masses. No guarding. Bowel sounds present. GENITOURINARY: Without palpable bladder distension. Urostomy drain in place. Draining clear yellow urine. MUSCULOSKELETAL: Extremities without clubbing, cyanosis, or edema. No joint tenderness or effusion noted. No mottling NEUROLOGICAL: Initially lethargic and minimally responsive to my exam. Upon my later return is more awake verbalizing some partially oriented recognizes friend. Limited to poor insight to hospitalization. Moving all 4 extremities and following commands. PSYCHIATRIC: No obvious anxiety/depression. no apparent hallucinations or other psychotic thought process. Diagnostic Tests Laboratory: Laboratory Results - last 72 hr 07/24/18 07/24/18 07/24/18 09:20 09:20 09:20 WBC 13.9 H RBC 4.04 L Hgb 12.3 L Hct 38.5 L MCV 95.1 MCH 30.4 MCHC 32.0 RDW 15.4 Plt Count 271 MPV 8.5 Prelim Diff (Auto) Slide review pending Neut % (Auto) 72.5 H Lymph % (Auto) 19.8 [place] % (Auto) 5.9 Eos % (Auto) 1.3 Baso % (Auto) 0.5 Neut # (Auto) 10.1 H Lymph # (Auto) 2.7 [place] # (Auto) 0.8 Eos # (Auto) 0.2 Baso # (Auto) 0.1 WBC Differential . Diff Scan Auto diff confirmed Differential Comment . PT 10.4 INR 1.0 APTT 24.7 Puncture Site Patient Temperature O2 Saturation ABG pH ABG pCO2 ABG pO2 ABG HCO3 ABG O2 Content ABG Base Excess ABG Methemoglobin Navjot Test Hemoglobin Carboxyhemoglobin O2 Delivery Device Vent Setting Inspired O2 Critical Value Sodium 135 L Potassium 5.1 Chloride 94 L Carbon Dioxide 38.5 H Anion Gap 3 L BUN 16 Creatinine 1.03 Estimated GFR 70 L POC Glucose Random Glucose 258 H Lactic Acid Calcium 8.7 Phosphorus Magnesium 2.7 H Total Bilirubin 0.4 AST 20 ALT 31 Alkaline Phosphatase 97 Ammonia Troponin I Less than 0.02 L B-Natriuretic Peptide Total Protein 7.6 Albumin 3.2 L Lipase 64 L TSH Thyroxine (T4) Cortisol Urine Color Urine Clarity Urine pH Ur Specific [place] Urine Protein Urine Glucose (UA) Urine Ketones Urine Occult Blood Urine Nitrate Urine Bilirubin Urine Urobilinogen Ur Leukocyte Esterase Urine RBC Urine WBC Urine WBC Clumps Urine Bacteria Hyaline Casts Micro UA Comment Ur Microscopic Review Urine Culture Comments Pleural pH Pleural RBC Pleural Nuc Cells Pleural Neutrophils Pleural Lymphocytes Pleural Monocytes Pleural Mesothelial Pleural Other Cells Pleural Total Protein Pleural LDH Pleural Glucose Pleural Amylase Nasal Screen MRSA (PCR) Blood Type Blood Type Recheck Antibody Screen 07/24/18 07/24/18 07/24/18 09:29 09:30 09:31 WBC RBC Hgb Hct MCV MCH MCHC RDW Plt Count MPV Prelim Diff (Auto) Neut % (Auto) Lymph % (Auto) [place] % (Auto) Eos % (Auto) Baso % (Auto) Neut # (Auto) Lymph # (Auto) [place] # (Auto) Eos # (Auto) Baso # (Auto) WBC Differential Diff Scan Differential Comment PT INR APTT Puncture Site Left radial Patient Temperature 98.6 O2 Saturation 91 ABG pH 7.10 L* ABG pCO2 122 H* ABG pO2 87 ABG HCO3 37 H ABG O2 Content 15.2 ABG Base Excess 7.1 H ABG Methemoglobin 0.7 Navjot Test Present Hemoglobin 11.7 L Carboxyhemoglobin 0.8 O2 Delivery Device Bipap Vent Setting Inspired O2 100 Critical Value Yes Sodium Potassium Chloride Carbon Dioxide Anion Gap BUN Creatinine Estimated GFR POC Glucose 240 H Random Glucose Lactic Acid 2.3 H Calcium Phosphorus Magnesium Total Bilirubin AST ALT Alkaline Phosphatase Ammonia Troponin I B-Natriuretic Peptide Total Protein Albumin Lipase TSH Thyroxine (T4) Cortisol Urine Color Urine Clarity Urine pH Ur Specific [place] Urine Protein Urine Glucose (UA) Urine Ketones Urine Occult Blood Urine Nitrate Urine Bilirubin Urine Urobilinogen Ur Leukocyte Esterase Urine RBC Urine WBC Urine WBC Clumps Urine Bacteria Hyaline Casts Micro UA Comment Ur Microscopic Review Urine Culture Comments Pleural pH Pleural RBC Pleural Nuc Cells Pleural Neutrophils Pleural Lymphocytes Pleural Monocytes Pleural Mesothelial Pleural Other Cells Pleural Total Protein Pleural LDH Pleural Glucose Pleural Amylase Nasal Screen MRSA (PCR) Blood Type Blood Type Recheck Antibody Screen 07/24/18 07/24/18 07/24/18 09:55 10:14 10:15 WBC RBC Hgb Hct MCV MCH MCHC RDW Plt Count MPV Prelim Diff (Auto) Neut % (Auto) Lymph % (Auto) [place] % (Auto) Eos % (Auto) Baso % (Auto) Neut # (Auto) Lymph # (Auto) [place] # (Auto) Eos # (Auto) Baso # (Auto) WBC Differential Diff Scan Differential Comment PT INR APTT Puncture Site Patient Temperature O2 Saturation ABG pH ABG pCO2 ABG pO2 ABG HCO3 ABG O2 Content ABG Base Excess ABG Methemoglobin Navjot Test Hemoglobin Carboxyhemoglobin O2 Delivery Device Vent Setting Inspired O2 Critical Value Sodium Potassium Chloride Carbon Dioxide Anion Gap BUN Creatinine Estimated GFR POC Glucose Random Glucose Lactic Acid Calcium Phosphorus Magnesium Total Bilirubin AST ALT Alkaline Phosphatase Ammonia Troponin I B-Natriuretic Peptide 173 H Total Protein Albumin Lipase TSH Thyroxine (T4) Cortisol Urine Color Yael Urine Clarity Cloudy H Urine pH 6.0 Ur Specific [place] 1.036 H Urine Protein 100 H Urine Glucose (UA) Negative Urine Ketones Negative Urine Occult Blood Moderate H Urine Nitrate Negative Urine Bilirubin Negative Urine Urobilinogen Less than 2 Ur Leukocyte Esterase Large H Urine RBC 31 H Urine WBC Urine WBC Clumps Few H Urine Bacteria Many H Hyaline Casts 9 Micro UA Comment Cath-culture ind Ur Microscopic Review Not Reportable Urine Culture Comments Cath-cult indicated Pleural pH Pleural RBC Pleural Nuc Cells Pleural Neutrophils Pleural Lymphocytes Pleural Monocytes Pleural Mesothelial Pleural Other Cells Pleural Total Protein Pleural LDH Pleural Glucose Pleural Amylase Nasal Screen MRSA (PCR) Blood Type A Positive Blood Type Recheck Required Antibody Screen Negative 07/24/18 07/24/18 07/24/18 11:40 13:06 13:06 WBC RBC Hgb Hct MCV MCH MCHC RDW Plt Count MPV Prelim Diff (Auto) Neut % (Auto) Lymph % (Auto) [place] % (Auto) Eos % (Auto) Baso % (Auto) Neut # (Auto) Lymph # (Auto) [place] # (Auto) Eos # (Auto) Baso # (Auto) WBC Differential Diff Scan Differential Comment PT INR APTT Puncture Site Patient Temperature O2 Saturation ABG pH ABG pCO2 ABG pO2 ABG HCO3 ABG O2 Content ABG Base Excess ABG Methemoglobin Navjot Test Hemoglobin Carboxyhemoglobin O2 Delivery Device Vent Setting Inspired O2 Critical Value Sodium Potassium Chloride Carbon Dioxide Anion Gap BUN Creatinine Estimated GFR POC Glucose Random Glucose Lactic Acid 2.5 H Calcium Phosphorus Magnesium Total Bilirubin AST ALT Alkaline Phosphatase Ammonia Troponin I B-Natriuretic Peptide Total Protein Albumin Lipase TSH Thyroxine (T4) 7.1 Cortisol 33.4 Urine Color Urine Clarity Urine pH Ur Specific [place] Urine Protein Urine Glucose (UA) Urine Ketones Urine Occult Blood Urine Nitrate Urine Bilirubin Urine Urobilinogen Ur Leukocyte Esterase Urine RBC Urine WBC Urine WBC Clumps Urine Bacteria Hyaline Casts Micro UA Comment Ur Microscopic Review Urine Culture Comments Pleural pH Pleural RBC Pleural Nuc Cells Pleural Neutrophils Pleural Lymphocytes Pleural Monocytes Pleural Mesothelial Pleural Other Cells Pleural Total Protein Pleural LDH Pleural Glucose Pleural Amylase Nasal Screen MRSA (PCR) Blood Type Blood Type Recheck Antibody Screen 07/24/18 07/24/18 07/24/18 13:06 14:12 14:29 WBC RBC Hgb Hct MCV MCH MCHC RDW Plt Count MPV Prelim Diff (Auto) Neut % (Auto) Lymph % (Auto) [place] % (Auto) Eos % (Auto) Baso % (Auto) Neut # (Auto) Lymph # (Auto) [place] # (Auto) Eos # (Auto) Baso # (Auto) WBC Differential Diff Scan Differential Comment PT INR APTT Puncture Site Left radial Patient Temperature 98.6 O2 Saturation 93 ABG pH 7.23 L* ABG pCO2 93 H* ABG pO2 83 ABG HCO3 37 H ABG O2 Content 14.2 ABG Base Excess 9.6 H ABG Methemoglobin 0.7 Navjot Test Present Hemoglobin 10.7 L Carboxyhemoglobin 1.0 O2 Delivery Device Vent Setting B Inspired O2 100 Critical Value Yes Sodium Potassium Chloride Carbon Dioxide Anion Gap BUN Creatinine Estimated GFR POC Glucose Random Glucose Lactic Acid Calcium Phosphorus Magnesium Total Bilirubin AST ALT Alkaline Phosphatase Ammonia 27 Troponin I 0.05 B-Natriuretic Peptide Total Protein Albumin Lipase TSH 1.910 Thyroxine (T4) Cortisol Urine Color Urine Clarity Urine pH Ur Specific [place] Urine Protein Urine Glucose (UA) Urine Ketones Urine Occult Blood Urine Nitrate Urine Bilirubin Urine Urobilinogen Ur Leukocyte Esterase Urine RBC Urine WBC Urine WBC Clumps Urine Bacteria Hyaline Casts Micro UA Comment Ur Microscopic Review Urine Culture Comments Pleural pH Pleural RBC Pleural Nuc Cells Pleural Neutrophils Pleural Lymphocytes Pleural Monocytes Pleural Mesothelial Pleural Other Cells Pleural Total Protein Pleural LDH Pleural Glucose Pleural Amylase Nasal Screen MRSA (PCR) Blood Type Blood Type Recheck Antibody Screen 07/24/18 07/24/18 07/24/18 17:10 18:20 18:20 WBC RBC Hgb Hct MCV MCH MCHC RDW Plt Count MPV Prelim Diff (Auto) Neut % (Auto) Lymph % (Auto) [place] % (Auto) Eos % (Auto) Baso % (Auto) Neut # (Auto) Lymph # (Auto) [place] # (Auto) Eos # (Auto) Baso # (Auto) WBC Differential Diff Scan Differential Comment PT INR APTT Puncture Site Patient Temperature O2 Saturation ABG pH ABG pCO2 ABG pO2 ABG HCO3 ABG O2 Content ABG Base Excess ABG Methemoglobin Navjot Test Hemoglobin Carboxyhemoglobin O2 Delivery Device Vent Setting Inspired O2 Critical Value Sodium Potassium Chloride Carbon Dioxide Anion Gap BUN Creatinine Estimated GFR POC Glucose Random Glucose Lactic Acid Calcium Phosphorus Magnesium Total Bilirubin AST ALT Alkaline Phosphatase Ammonia Troponin I B-Natriuretic Peptide Total Protein Albumin Lipase TSH Thyroxine (T4) Cortisol Urine Color Urine Clarity Urine pH Ur Specific [place] Urine Protein Urine Glucose (UA) Urine Ketones Urine Occult Blood Urine Nitrate Urine Bilirubin Urine Urobilinogen Ur Leukocyte Esterase Urine RBC Urine WBC Urine WBC Clumps Urine Bacteria Hyaline Casts Micro UA Comment Ur Microscopic Review Urine Culture Comments Pleural pH 8.5 Pleural RBC 98182 H Pleural Nuc Cells 525 H Pleural Neutrophils 15 Pleural Lymphocytes 66 Pleural Monocytes 7 Pleural Mesothelial 9 Pleural Other Cells 3 Pleural Total Protein 2.4 Pleural LDH 867 Pleural Glucose 152 Pleural Amylase 37 Nasal Screen MRSA (PCR) Mrsa detected Blood Type Blood Type Recheck Antibody Screen 07/24/18 07/24/18 07/24/18 18:35 19:03 23:55 WBC RBC Hgb Hct MCV MCH MCHC RDW Plt Count MPV Prelim Diff (Auto) Neut % (Auto) Lymph % (Auto) [place] % (Auto) Eos % (Auto) Baso % (Auto) Neut # (Auto) Lymph # (Auto) [place] # (Auto) Eos # (Auto) Baso # (Auto) WBC Differential Diff Scan Differential Comment PT INR APTT Puncture Site Patient Temperature O2 Saturation ABG pH ABG pCO2 ABG pO2 ABG HCO3 ABG O2 Content ABG Base Excess ABG Methemoglobin Navjot Test Hemoglobin Carboxyhemoglobin O2 Delivery Device Vent Setting Inspired O2 Critical Value Sodium Potassium Chloride Carbon Dioxide Anion Gap BUN Creatinine Estimated GFR POC Glucose 160 H 131 H Random Glucose Lactic Acid 2.1 H Calcium Phosphorus Magnesium Total Bilirubin AST ALT Alkaline Phosphatase Ammonia Troponin I B-Natriuretic Peptide Total Protein Albumin Lipase TSH Thyroxine (T4) Cortisol Urine Color Urine Clarity Urine pH Ur Specific [place] Urine Protein Urine Glucose (UA) Urine Ketones Urine Occult Blood Urine Nitrate Urine Bilirubin Urine Urobilinogen Ur Leukocyte Esterase Urine RBC Urine WBC Urine WBC Clumps Urine Bacteria Hyaline Casts Micro UA Comment Ur Microscopic Review Urine Culture Comments Pleural pH Pleural RBC Pleural Nuc Cells Pleural Neutrophils Pleural Lymphocytes Pleural Monocytes Pleural Mesothelial Pleural Other Cells Pleural Total Protein Pleural LDH Pleural Glucose Pleural Amylase Nasal Screen MRSA (PCR) Blood Type Blood Type Recheck Antibody Screen 07/24/18 07/25/18 07/25/18 23:58 02:00 04:00 WBC 14.2 H RBC 3.53 L Hgb 10.6 L Hct 33.1 L MCV 93.8 MCH 30.0 MCHC 32.0 RDW 15.3 Plt Count 188 D MPV 8.6 Prelim Diff (Auto) Neut % (Auto) 91.4 H Lymph % (Auto) 3.9 L [place] % (Auto) 4.3 Eos % (Auto) 0.0 Baso % (Auto) 0.4 Neut # (Auto) 13.0 H Lymph # (Auto) 0.6 L [place] # (Auto) 0.6 Eos # (Auto) 0.0 Baso # (Auto) 0.1 WBC Differential . Diff Scan Differential Comment Auto diff final PT INR APTT Puncture Site Patient Temperature O2 Saturation ABG pH ABG pCO2 ABG pO2 ABG HCO3 ABG O2 Content ABG Base Excess ABG Methemoglobin Navjot Test Hemoglobin Carboxyhemoglobin O2 Delivery Device Vent Setting Inspired O2 Critical Value Sodium 138 Potassium 5.5 H Chloride 97 L Carbon Dioxide 36.5 H Anion Gap 5 BUN 22 H Creatinine 0.93 Estimated GFR 79 L POC Glucose 116 H Random Glucose 115 H D Lactic Acid Calcium 8.3 L Phosphorus 3.7 Magnesium 2.5 Total Bilirubin 0.3 AST 15 ALT 24 Alkaline Phosphatase 76 Ammonia Troponin I B-Natriuretic Peptide Total Protein 6.5 D Albumin 2.8 L Lipase TSH Thyroxine (T4) Cortisol Urine Color Urine Clarity Urine pH Ur Specific [place] Urine Protein Urine Glucose (UA) Urine Ketones Urine Occult Blood Urine Nitrate Urine Bilirubin Urine Urobilinogen Ur Leukocyte Esterase Urine RBC Urine WBC Urine WBC Clumps Urine Bacteria Hyaline Casts Micro UA Comment Ur Microscopic Review Urine Culture Comments Pleural pH Pleural RBC Pleural Nuc Cells Pleural Neutrophils Pleural Lymphocytes Pleural Monocytes Pleural Mesothelial Pleural Other Cells Pleural Total Protein Pleural LDH Pleural Glucose Pleural Amylase Nasal Screen MRSA (PCR) Blood Type Blood Type Recheck Antibody Screen 07/25/18 07/25/18 04:00 11:54 WBC RBC Hgb Hct MCV MCH MCHC RDW Plt Count MPV Prelim Diff (Auto) Neut % (Auto) Lymph % (Auto) [place] % (Auto) Eos % (Auto) Baso % (Auto) Neut # (Auto) Lymph # (Auto) [place] # (Auto) Eos # (Auto) Baso # (Auto) WBC Differential Diff Scan Differential Comment PT INR APTT Puncture Site Patient Temperature O2 Saturation ABG pH ABG pCO2 ABG pO2 ABG HCO3 ABG O2 Content ABG Base Excess ABG Methemoglobin Navjot Test Hemoglobin Carboxyhemoglobin O2 Delivery Device Vent Setting Inspired O2 Critical Value Sodium Potassium Chloride Carbon Dioxide Anion Gap BUN Creatinine Estimated GFR POC Glucose 85 Random Glucose Lactic Acid 1.3 Calcium Phosphorus Magnesium Total Bilirubin AST ALT Alkaline Phosphatase Ammonia Troponin I B-Natriuretic Peptide Total Protein Albumin Lipase TSH Thyroxine (T4) Cortisol Urine Color Urine Clarity Urine pH Ur Specific [place] Urine Protein Urine Glucose (UA) Urine Ketones Urine Occult Blood Urine Nitrate Urine Bilirubin Urine Urobilinogen Ur Leukocyte Esterase Urine RBC Urine WBC Urine WBC Clumps Urine Bacteria Hyaline Casts Micro UA Comment Ur Microscopic Review Urine Culture Comments Pleural pH Pleural RBC Pleural Nuc Cells Pleural Neutrophils Pleural Lymphocytes Pleural Monocytes Pleural Mesothelial Pleural Other Cells Pleural Total Protein Pleural LDH Pleural Glucose Pleural Amylase Nasal Screen MRSA (PCR) Blood Type Blood Type Recheck Antibody Screen Result Diagrams: 07/25/18 04:00 07/25/18 02:00 Microbiology: Microbiology 07/24/18 13:05 Urine Culture - Final Clean Catch Urine 50-100,000 cfu/mL mixed eva (probable contaminants) 07/24/18 09:10 Aerobic Blood Culture - Preliminary Blood - Peripheral No growth in 1 day Anaerobic Blood Culture - Preliminary No growth in 1 day 07/24/18 09:20 Aerobic Blood Culture - Preliminary Blood - Peripheral No growth in 1 day Anaerobic Blood Culture - Preliminary No growth in 1 day 07/24/18 18:20 Fungal Smear - Final Other No fungal elements seen 07/24/18 18:20 Gram Stain - Final Fluid - Pleural fluid 07/24/18 13:05 Legionella Antigen - Final Urine - Clean Catch Urine Presumptive negative for Legionella pneumophila serogroup 1 antigen in urine, suggesting no recent or recurrent infection. Infection due to Legionella cannot be ruled out since other serogroups and species may cause disease, antigen may not be present in urine in early infection, and the level of antigen present in the urine may be below the detection limit of the test. 07/24/18 13:05 Streptococcus pneumoniae Antigen (M - Final Urine - Clean Catch Urine Presumptive negative for streptococcus pneumoniae antigen, suggesting no current or recent infection. Infection due to Streptococcus pneumoniae cannot be ruled out since the antigen present in the sample may be below the detection limit of the test. 07/24/18 10:15 Influenza Types A,B Antigen - Final Nasal Wash Negative for FLU A and B antigen Infection due to influenza A or B cannot be ruled out since the antigen present in the sample may be below the detection limit of the test. Imaging: Impressions Chest Tube Insertion 07/24/18 00:00 CONCLUSION: 1. Uncomplicated chest tube placement as above. Chest Tube Insertion 07/24/18 00:00 CONCLUSION: 1. Uncomplicated chest tube placement as above. Chest X-Ray 07/24/18 00:00 CONCLUSION: Slight worsening opacification of the right lung with less aeration right apex. Head CT 07/24/18 11:15 CONCLUSION: Slight chronic small vessel ischemic and atrophic changes. Chest X-Ray 07/25/18 16:24 CONCLUSION: Improved aeration. The right thoracostomy tube does not appear to be in the chest cavity Procedures: 07/24/[address] placement Assessment and Plan - Symptom Scale (1) Dyspnea 0-10 Scale: Unable to quantify (2) Weakness 0-10 Scale: Unable to quantify Pertinent Non-Medical Issues: Psychosocial: Patient originally from [place] though moved to [place] many years ago when his family did. 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 He has never has no children. 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 He also has some underlying dementia based on available records as well as friends report, as well as history of schizoaffective disorder. Currently unable to participate due to critical clinical condition. Has HCS designation from [place] 2010 naming Taran Boogie, and additional HCS dated 01/2018 naming aramis. He has previously been able to participate some in decision making though major decision should be made by his designated surrogate as his insight appears limited and given his fluctuations he may not have good recall of benefit/burden/decisions made. Ethical issues impacting care: No ethical issues identified. Important Contacts: Taran Mantilla [facility]- [phone], [facility] [phone] Prognosis: This patient was admitted for altered mental status, and shortness of breath. Findings of complete white out right chest. Will require chest tubes. CTA negative for PE. He has multiple chronic medical conditions, and baseline is debilitated/ bedbound; does remain at risk for ongoing complications and setbacks. Code Status: No Code DNR Plan: * LEGAL Patient has previously been alert and oriented ;however he appeared to have had limited insight. He also has some underlying dementia based on available records as well as friends report, as well as history of schizoaffective disorder. Currently unable to participate due to critical clinical condition. Has HCS designation from [place] 2010 naming Taran Mantilla, and additional HCS dated 01/2018 naming aramis. He has previously been able to participate some in decision making though major decision should be made by his designated surrogate as his insight appears limited and given his fluctuations he may not have good recall of benefit/burden/decisions made. * Goals: *Initially unable to reach healthcare surrogate Mr. Mantilla however later Able to meet with him at bedside he endorses that he would want to do what ever is possible to try to help the patient recover short of intubation and he endorses that the patient has long said he would never want breathing tubes and he intends to honor this request however he would accept aggressive medical treatment short of that. Review with Mr. Mantilla that patient does still remain at risk for respiratory deterioration even with ongoing aggressive interventions. He is open to ongoing discussions as clinical course evolves. * CODE STATUS: DNR SYMPTOMS: --Dyspnea--admitted for AMS/ acute shortness of breath. Long history of COPD , CPAP, DEE. 01/2018. admission : Intubated for a short course, extubated after 24 hours Uses BiPAP at night. CXR shows right CT not in pleural space, continues to have consolidation and effusion in the left base. -- pain- no signs/sx pain- denies pain during visit later. We will continue to evaluate. -- anxiety- potential for r/t hx dementia/confusion and schizoaffective disorder, BiPAP. currently relatively calm/comfortable, initially with altered mental status, lethargy. We will continue to evaluate Palliative care will continue to follow during hospital course as condition evolves, to assist patient/decision-maker with understanding of medical conditions, weighing benefits/burdens of treatment options, for clarification of goals of treatment. Additionally will assist with any symptoms of palliative concern Attestation Collaborating MD Comments: Dr. Vilchis Attestation: To help prompt me to consider important information that might be impacting today's encounter and assessment, information from prior notes written by myself or my colleagues may have been "brought forward" into today's note. My signature on this note, however, is an attestation that I personally performed the exam, history, and/or decision-making noted today, and, unless otherwise indicated, the interactions with patient, family, and staff as well as the review of records all occurred today. I also attest that the listed assessment and stated plan reflect my best clinical judgment today based on the combination of historical information, prior notes, and today's exam/ interactions. When time spent is documented, it refers only to time spent today by the signer, or if indicated, combined time spent today by collaborating physician/nurse practitioner.
--- NOTE | 2018-07-25 15:17 | P.PNCC ---
Subjective Subjective Remarks/Hospital Course: 07/25: Patient's oxygen requirements have been significantly decreased the patient remains on 2 L nasal cannula, in no distress. Right chest tube has been dislodged this morning noted on chest x-ray. Left chest tube continues on suction. Objective Vital Signs / I&O: Vital Signs 07/24/18 16:59 07/24/18 17:00 07/24/18 17:09 Temperature 97.7 F Pulse Rate 114 H 104 H 104 H Respiratory Rate 25 H Blood Pressure 107/48 L Pulse Oximetry 07/24/18 17:11 07/24/18 17:39 07/24/18 18:00 Temperature Pulse Rate 92 H 99 H 103 H Respiratory Rate 31 H 30 H Blood Pressure 107/48 L 107/48 L Pulse Oximetry 100 100 07/24/18 18:22 07/24/18 19:00 07/24/18 19:53 Temperature Pulse Rate 83 94 H Respiratory Rate 26 H 11 L Blood Pressure 106/55 L Pulse Oximetry 100 100 07/24/18 20:00 07/24/18 21:00 07/24/18 22:00 Temperature 97.8 F Pulse Rate 71 85 76 Respiratory Rate 26 H 31 H 27 H Blood Pressure 116/54 L 135/63 125/60 Pulse Oximetry 96 90 L 98 07/24/18 23:00 07/24/18 23:43 07/25/18 00:00 Temperature 97.6 F Pulse Rate 78 110 H 80 Respiratory Rate 27 H 20 25 H Blood Pressure 116/55 L 125/56 L Pulse Oximetry 97 98 99 07/25/18 00:33 07/25/18 01:00 07/25/18 02:00 Temperature Pulse Rate 93 H 86 Respiratory Rate 30 H Blood Pressure 125/56 L Pulse Oximetry 100 100 07/25/18 04:00 07/25/18 04:07 07/25/18 04:20 Temperature 98 F Pulse Rate 81 79 Respiratory Rate 20 18 Blood Pressure 110/58 L Pulse Oximetry 99 98 07/25/18 05:00 07/25/18 06:00 07/25/18 07:00 Temperature Pulse Rate 77 77 91 H Respiratory Rate 21 26 H 21 Blood Pressure 114/63 121/56 L 130/60 Pulse Oximetry 99 100 99 07/25/18 08:00 07/25/18 08:01 07/25/18 09:00 Temperature 98.6 F Pulse Rate 81 75 92 H Respiratory Rate 23 27 H 42 H Blood Pressure 136/56 L 136/56 L 132/57 L Pulse Oximetry 100 100 99 07/25/18 10:00 07/25/18 11:00 07/25/18 12:00 Temperature 98.4 F Pulse Rate 87 83 93 H Respiratory Rate 26 H 22 25 H Blood Pressure 124/60 124/56 L 121/56 L Pulse Oximetry 100 100 100 07/25/18 14:00 Temperature Pulse Rate 94 H Respiratory Rate Blood Pressure Pulse Oximetry Intake & Output 07/24/18 07/25/18 07/25/18 18:59 06:59 18:59 Intake Total 550 / 550 662.50 / 662.50 100 / 100 Output Total 2220 / 2220 1000 / 1000 Balance -1670 / -1670 -337.50 / -337.50 100 / 100 Weight 117.934 kg 120 kg Intake: IV 550 / 550 662.50 / 662.50 100 / 100 Azactam Inj 1,000 MG In NS Inj 200 / 200 100 ML @ 200 mls/hr IV.SIG Q8H BRETT Rx#:[id number] Azactam Inj 2 GM In NS Inj 100 100 / 100 ML @ 200 mls/hr IV.SIG STAT STA Rx#:[id number] Vancomycin Inj 1,000 MG In NS 250 / 250 Inj 250 ML @ 250 mls/hr IV.SIG STAT STA Rx#:[id number] Vancomycin Inj 1,250 MG In NS 262.50 / 262.50 Inj 250 ML @ 250 mls/hr IV.SIG Q12H BRETT Rx#:[id number] Flagyl 500 MG Inj 100 ML @ 100 100 / 100 200 / 200 100 / 100 mls/hr IV.SIG Q8H BRETT Rx#: [id number] Oral 0 / 0 Output: Urine 325 / 325 Urine Amount (Stoma) 900 / 900 Continent Urostomy 900 / 900 Chest Tube Drainage 1895 / 1895 100 / 100 #1 Left 1070 / 1070 50 / 50 #1 Right 825 / 825 50 / 50 Other: Date of Last Bowel Movement 07/24/18 07/24/18 07/24/18 # Bowel Movements 0 Result Diagrams: 07/25/18 04:00 07/25/18 02:00 Other Results: Laboratory Results WBC 14.2 th/mm3 (4.0-11.0) H 07/25/18 04:00 RBC 3.53 mil/mm3 (4.50-5.90) L 07/25/18 04:00 Hgb 10.6 gm/dL (13.0-17.0) L 07/25/18 04:00 Hct 33.1 % (39.0-51.0) L 07/25/18 04:00 MCV 93.8 fL (80.0-100.0) 07/25/18 04:00 MCH 30.0 pg (27.0-34.0) 07/25/18 04:00 MCHC 32.0 % (32.0-36.0) 07/25/18 04:00 RDW 15.3 % (11.6-17.2) 07/25/18 04:00 Plt Count 188 th/mm3 (150-450) D 07/25/18 04:00 MPV 8.6 fL (7.0-11.0) 07/25/18 04:00 Prelim Diff (Auto) Slide review pending 07/24/18 09:20 Neut % (Auto) 91.4 % (16.0-70.0) H 07/25/18 04:00 Lymph % (Auto) 3.9 % (9.0-44.0) L 07/25/18 04:00 [place] % (Auto) 4.3 % (0.0-8.0) 07/25/18 04:00 Eos % (Auto) 0.0 % (0.0-4.0) 07/25/18 04:00 Baso % (Auto) 0.4 % (0.0-2.0) 07/25/18 04:00 Neut # (Auto) 13.0 th/mm3 (1.8-7.7) H 07/25/18 04:00 Lymph # (Auto) 0.6 th/mm3 (1.0-4.8) L 07/25/18 04:00 [place] # (Auto) 0.6 th/mm3 (0.0-0.9) 07/25/18 04:00 Eos # (Auto) 0.0 th/mm3 (0.0-0.4) 07/25/18 04:00 Baso # (Auto) 0.1 th/mm3 (0.0-0.2) 07/25/18 04:00 WBC Differential . 07/25/18 04:00 Diff Scan Auto diff confirmed 07/24/18 09:20 Differential Comment Auto diff final 07/25/18 04:00 PT 10.4 sec (9.8-11.6) 07/24/18 09:20 INR 1.0 Ratio 07/24/18 09:20 APTT 24.7 sec (23.4-31.7) 07/24/18 09:20 Puncture Site Left radial 07/24/18 14:29 Patient Temperature 98.6 07/24/18 14:29 O2 Saturation 93 % (90-100) 07/24/18 14:29 ABG pH 7.23 (7.380-7.420) L* 07/24/18 14:29 ABG pCO2 93 mmHg (38-42) H* 07/24/18 14:29 ABG pO2 83 mmHg (61-120) 07/24/18 14:29 ABG HCO3 37 mmol/L (22-26) H 07/24/18 14:29 ABG O2 Content 14.2 Vol % (12.0-20.0) 07/24/18 14:29 ABG Base Excess 9.6 mmol/L (-2-2) H 07/24/18 14:29 ABG Methemoglobin 0.7 % (0-2) 07/24/18 14:29 Navjot Test Present 07/24/18 14:29 Hemoglobin 10.7 G/DL (12.0-16.0) L 07/24/18 14:29 Carboxyhemoglobin 1.0 % (0-4) 07/24/18 14:29 O2 Delivery Device Bipap 07/24/18 09:31 Vent Setting B 07/24/18 14:29 Inspired O2 100 % 07/24/18 14:29 Critical Value Yes 07/24/18 14:29 Sodium 138 meq/L (136-145) 07/25/18 02:00 Potassium 5.5 meq/L (3.5-5.1) H 07/25/18 02:00 Chloride 97 meq/L (98-107) L 07/25/18 02:00 Carbon Dioxide 36.5 meq/L (21.0-32.0) H 07/25/18 02:00 Anion Gap 5 meq/L (5-15) 07/25/18 02:00 BUN 22 mg/dL (7-18) H 07/25/18 02:00 Creatinine 0.93 mg/dL (0.60-1.30) 07/25/18 02:00 Estimated GFR 79 mL/min (>89) L 07/25/18 02:00 POC Glucose 85 mg/dl (68-110) 07/25/18 11:54 Random Glucose 115 mg/dL (74-106) H D 07/25/18 02:00 Lactic Acid 1.3 mmol/L (0.4-2.0) 07/25/18 04:00 Calcium 8.3 mg/dL (8.5-10.1) L 07/25/18 02:00 Phosphorus 3.7 mg/dL (2.5-4.9) 07/25/18 02:00 Magnesium 2.5 mg/dL (1.5-2.5) 07/25/18 02:00 Total Bilirubin 0.3 mg/dL (0.2-1.0) 07/25/18 02:00 AST 15 U/L (15-37) 07/25/18 02:00 ALT 24 U/L (12-78) 07/25/18 02:00 Alkaline Phosphatase 76 U/L (45-117) 07/25/18 02:00 Ammonia 27 mcmol/L (11-32) 07/24/18 14:12 Troponin I 0.05 ng/mL (0.02-0.05) 07/24/18 13:06 B-Natriuretic Peptide 173 pg/mL (0-100) H 07/24/18 10:15 Total Protein 6.5 g/dL (6.4-8.2) D 07/25/18 02:00 Albumin 2.8 g/dL (3.4-5.0) L 07/25/18 02:00 Lipase 64 U/L (73-393) L 07/24/18 09:20 TSH 1.910 uIU/mL (0.358-3.740) 07/24/18 13:06 Thyroxine (T4) 7.1 mcg/dL (4.5-12.1) 07/24/18 13:06 Cortisol 33.4 mcg/dL 07/24/18 13:06 Urine Color Yael (Yellw/Straw) 07/24/18 09:55 Urine Clarity Cloudy (Clear) H 07/24/18 09:55 Urine pH 6.0 (5.0-8.5) 07/24/18 09:55 Ur Specific [place] 1.036 (1.002-1.035) H 07/24/18 09:55 Urine Protein 100 mg/dL (Neg-Trace) H 07/24/18 09:55 Urine Glucose (UA) Negative mg/dL (Negative) 07/24/18 09:55 Urine Ketones Negative mg/dL (Negative) 07/24/18 09:55 Urine Occult Blood Moderate (Negative) H 07/24/18 09:55 Urine Nitrate Negative (Negative) 07/24/18 09:55 Urine Bilirubin Negative (Negative) 07/24/18 09:55 Urine Urobilinogen Less than 2 mg/dL (Less than 2) 07/24/18 09:55 Ur Leukocyte Esterase Large (Negative) H 07/24/18 09:55 Urine RBC 31 /hpf (0-3) H 07/24/18 09:55 Urine WBC /hpf (0-5) 07/24/18 09:55 Urine WBC Clumps Few (None) H 07/24/18 09:55 Urine Bacteria Many /hpf (None) H 07/24/18 09:55 Hyaline Casts 9 /lpf (0-3) 07/24/18 09:55 Micro UA Comment Cath-culture ind 07/24/18 09:55 Ur Microscopic Review Not Reportable 07/24/18 09:55 Urine Culture Comments Cath-cult indicated 07/24/18 09:55 Pleural pH 8.5 07/24/18 18:20 Pleural RBC 51591 /mm3 (0-0) H 07/24/18 18:20 Pleural Nuc Cells 525 /mm3 (0-10) H 07/24/18 18:20 Pleural Neutrophils 15 % 07/24/18 18:20 Pleural Lymphocytes 66 % 07/24/18 18:20 Pleural Monocytes 7 % 07/24/18 18:20 Pleural Mesothelial 9 % 07/24/18 18:20 Pleural Other Cells 3 % 07/24/18 18:20 Pleural Total Protein 2.4 gm/dL 07/24/18 18:20 Pleural LDH 867 U/L 07/24/18 18:20 Pleural Glucose 152 mg/dL 07/24/18 18:20 Pleural Amylase 37 U/L 07/24/18 18:20 Nasal Screen MRSA (PCR) Mrsa detected (Negative) 07/24/18 17:10 Blood Type A Positive 07/24/18 10:14 Blood Type Recheck Required 07/24/18 10:14 Antibody Screen Negative 07/24/18 10:14 Impressions Chest Tube Insertion 07/24/18 00:00 CONCLUSION: 1. Uncomplicated chest tube placement as above. Head CT 07/24/18 11:15 CONCLUSION: Slight chronic small vessel ischemic and atrophic changes. Chest CTA 07/24/18 11:17 CONCLUSION: 1. The study is negative for pulmonary embolism. 2. White out of the left chest with collapse of the left lung and large left pleural effusion. 3. Large right pleural effusion with associated compressive atelectasis/ infiltrate at the junction with the effusion. Chest X-Ray 07/25/18 16:24 CONCLUSION: Improved aeration. The right thoracostomy tube does not appear to be in the chest cavity Assessment and Plan - Problem List (1) Pleural effusion Code(s): J90 - Pleural effusion, not elsewhere classified Status: Acute - Assessment and Plan Plan: Plan by systems: Neurologic: Alzheimer's Schizoaffective disorder Altered mental status Neurochecks per ICU protocol Avoid sedatives Resume patient's home meds at this time Ammonia level, T4, TSH level-WNL Respiratory: Severe respiratory acidosis COPD Bilateral pleural effusions Acute hypercapnic respiratory failure Maintain O2 sat greater than 92 % Maintain BiPAP at night Duo nebs and acetylcysteine every 4 hours scheduled dose IR consulted for placement of bilateral chest tubes for draining bilateral large pleural effusions Maintain head of bed greater than 30 Continue budesonide-home medication Cardiovascular: Hypertension Hyperlipidemia Chronic atrial fibrillation Maintain MAP greater than 65 mmHg Continue ASA 81 mg, and atorvastatin 40 mg at bedtime when clinically appropriate. EKGatrial fibrillation Renal: Urostomy -- Strict I/Os FEN/GI: Super morbid obesity Obtain lipid panel Zofran for nausea Famotidine for GI prophylaxis Obtain formal swallow and initiate diet Heme/ID: Lactic acidemia Leukocytosis Sepsis Monitor CBC Blood urine and sputum culture Obtain strep pneumo and influenza A/B Empiric antibiotics provided aztreonam, vancomycin and Flagyl-continue will de- escalate upon speciation of cultures History of recurrent UTI Follow-up lactic acid until clear Endocrine: Glucose monitoring per ICU protocol -- SSI Prophylaxis: GI Prophylaxis Famotidine DVT Prophylaxis -- SCDs Heparin subcu Lines: Peripheral IVs x2. Central line if indicated Dispo: Level 2 follow Code Status: DNR Discussed Condition With: Patient and [employer] at bedside
[2018-07-25] MEDS: Ferrous Sulfate 325 MG Tablet PO SCH (17:47)
[2018-07-25] MEDS: Sod Chloride 0.9% Inj 1,000 ML IV.CONT SCH (17:52)
[2018-07-25] MEDS: Montelukast 10 MG Tablet PO SCH (20:19)
[2018-07-25] MEDS: QUEtiapine 25 MG Tablet PO SCH (20:20)
[2018-07-26] MEDS: RESP: Acetylcysteine 10% 4 ML Neb NEB SCH ×6 (00:18→21:01)
[2018-07-26] MEDS: Heparin - SQ 10,000 UNITS/ML Vial SQ SCH ×2 (00:58→15:56)
[2018-07-26] MEDS ORDERED: Pharmacy Ordered Lab Info OTHER ONE (02:45)
[2018-07-26] MEDS: Vancomycin Inj 1,250 MG in Sodium Chlor 0.9% Inj 250 ML IV.SIG SCH (03:11)
[2018-07-26] MEDS: Chlorhexidine Gluconate 2% 1 Pack (2 Cloths) TOPICAL SCH (03:11)
--- NOTE | 2018-07-26 04:55 | XR ---
EXAM DATE: 07/26/2018 4:36 AM EST AGE/SEX: 78 years / Male INDICATIONS: Shortness of breath, possible pulmonary disease. CLINICAL DATA: This is the patient's subsequent encounter. Patient reports that signs and symptoms h ave been present for 2 days and indicates a pain score of Nonresponsive. MEDICAL/SURGICAL HISTORY: Alzheimer's disease. Chronic obstructive pulmonary disease. Hyperte nsion. Prostatectomy. COMPARISON: [facility] [place], CHEST EXPIRATION ONLY, 07/25/2018. . FINDINGS: Bilateral pigtail thoracostomy tubes are again noted. The tube on the right barely overlaps the later al pleural space. There is persistent left base consolidation and effusion. Right lung is stable and basically clear. Cardiac contours are unchanged. CONCLUSION: No significant change Electronically signed by: Chaparro Mora MD Board Certified Radiologist 07/26/2018 4:54 AM EST
[2018-07-26] MEDS: MethylPREDNISolone Sod Succinate Inj 40 MG/ML Vial IV.PUSH SCH ×3 (05:27→22:12)
[2018-07-26] MEDS: Levothyroxine 50 MCG Tablet PO SCH (05:32)
[2018-07-26] MEDS: Insulin NovoLOG Aspart Correctional Sugar Inj SQ SCH ×3 (05:32→18:56)
[2018-07-26] MEDS ORDERED: Sodium Polystyrene Sulfonate/Sorbitol Liq 15 GM/60 ML UDC PO ONE (08:30)
[2018-07-26] MEDS: Senna/Docusate Sodium 8.6/50 MG Tablet PO SCH ×2 (10:09→22:12)
--- NOTE | 2018-07-26 10:10 | P.PNPL ---
Subjective Interval history: Patient is on 2L oxygen with good sats. Off BIPAP. Awake and alert. Physical Exam Vital signs: Vital Signs 07/25/18 11:00 07/25/18 12:00 07/25/18 13:00 Temperature 98.4 F Pulse Rate 83 93 H 94 H Respiratory Rate 22 25 H 21 Blood Pressure 124/56 L 121/56 L 120/58 L Pulse Oximetry 100 100 99 07/25/18 14:00 07/25/18 15:00 07/25/18 16:00 Temperature 98.5 F Pulse Rate 94 H 94 H 91 H Respiratory Rate 23 29 H 26 H Blood Pressure 120/56 L 110/58 L 106/51 L Pulse Oximetry 99 97 98 07/25/18 17:00 07/25/18 18:00 07/25/18 19:00 Temperature Pulse Rate 92 H 89 88 Respiratory Rate 20 16 Blood Pressure 111/56 L 111/59 L Pulse Oximetry 98 98 07/25/18 20:00 07/25/18 20:05 07/25/18 21:00 Temperature 98.4 F Pulse Rate 85 86 94 H Respiratory Rate 19 22 19 Blood Pressure 113/53 L 95/54 L Pulse Oximetry 96 96 96 07/25/18 22:00 07/25/18 23:00 07/26/18 00:00 Temperature 98.5 F Pulse Rate 99 H 99 H 89 Respiratory Rate 25 H 28 H 25 H Blood Pressure 102/54 L 125/58 L 117/55 L Pulse Oximetry 96 97 96 07/26/18 00:20 07/26/18 00:21 07/26/18 01:00 Temperature Pulse Rate 94 H 84 Respiratory Rate 22 17 Blood Pressure 121/58 L Pulse Oximetry 97 98 07/26/18 02:00 07/26/18 03:00 07/26/18 03:34 Temperature Pulse Rate 83 78 74 Respiratory Rate 24 20 Blood Pressure 130/61 137/62 Pulse Oximetry 98 98 07/26/18 03:35 07/26/18 04:00 07/26/18 04:11 Temperature 98.6 F Pulse Rate 82 78 Respiratory Rate 20 21 13 Blood Pressure 130/58 L Pulse Oximetry 98 98 07/26/18 05:00 07/26/18 06:00 07/26/18 07:30 Temperature Pulse Rate 75 78 73 Respiratory Rate 25 H 12 Blood Pressure 126/59 L Pulse Oximetry 97 99 Intake & Output 07/25/18 07/26/18 07/26/18 18:59 06:59 18:59 Intake Total 1562.50 / 1562.50 562.5 / 562.5 Output Total 1430 / 1430 810 / 810 Balance 132.50 / 132.50 -247.5 / -247.5 Weight 119 kg Intake: IV 1562.50 / 1562.50 562.5 / 562.5 NS Inj 1,000 ML @ 42 mls/hr IV. 1000 / 1000 CONT .[id number] BRETT Rx#:[id number] Azactam Inj 1,000 MG In NS Inj 100 / 100 200 / 200 100 ML @ 200 mls/hr IV.SIG Q8H BRETT Rx#:[id number] Vancomycin Inj 1,250 MG In NS 262.50 / 262.50 262.5 / 262.5 Inj 250 ML @ 250 mls/hr IV.SIG Q12H BRETT Rx#:[id number] Flagyl 500 MG Inj 100 ML @ 100 200 / 200 100 / 100 mls/hr IV.SIG Q8H BRETT Rx#: [id number] Output: Urine Amount (Stoma) 1000 / 1000 750 / 750 Continent Urostomy 1000 / 1000 750 / 750 Chest Tube Drainage 430 / 430 60 / 60 #1 Left 230 / 230 60 / 60 #1 Right 200 / 200 0 / 0 Other: Date of Last Bowel Movement 07/25/18 07/26/18 # Bowel Movements 1 0 - Constitutional no acute distress, morbidly obese - Routine HEENT Exam Head: Present: normocephalic, atraumatic Eye: Present: EOMI, PERRL, normal accommodation, conjunctivae pink ENT: Present: mucous membranes moist - Routine Neck Exam Present: supple, full ROM, trachea midline - Routine Respiratory Exam Present: CTA bilaterally - Routine Cardiovascular Exam Present: RRR, S1, S2 - Routine Abdominal Exam Present: soft, normoactive bowel sounds - Routine Extremities Exam Present: edema, full ROM, pulses intact - Routine Neurological Exam Present: alert, oriented X3, CN II-XII intact Assessment and Plan - Assessment (1) Pleural effusion Code(s): J90 - Pleural effusion, not elsewhere classified Status: Acute - Plan 1. Acute hypoxemic and hypercapnic respiratory failure. 2. Large b/l pleural effusion with compressive atelectasis. s/p CT placement. 3. Morbid obesity. 4. Obstructive sleep apnea. 5. Leukocytosis. 6. COPD. 7. Alzheimer dementia. 8. Hypertension. 9. Hyperlipidemia. 10. Hypothyroidism. 11. GERD Plan Continue with oxygen maintain sats> 90%. Bronchodilators(DuoNeb) Mucomyst 10% nebs 2 mL every 4 hours x 3 days. Decrease Solumederol 40mg IV Q8 BIPAP PRN for resp distress Continue with Singulair 10 mg daily. s/p Diamox 500mg IV x1 07/25. Check BMP s/p B/l CT placement by IR exudative effusion by LDH criteria. Monitor CT drainage. CXR today shows clear right lung, left base consolidation/effusion. Will d/c right CT as it is not draining and is partially out. Abx- vancomycin and aztreonam. Follow up on fluid cx- No growth Strep pneumonia, legionella urinary antigen, Nasal washing screening for influenza all negative GI/DVT prophylaxis. On Pepcid and Heparin SQ respectively. Palliative care is following. Code status: No code DNR.
[2018-07-26] MEDS: Famotidine PF Inj 20 MG/2 ML Vial IV.PUSH SCH ×2 (10:14→22:12)
[2018-07-26] MEDS: QUEtiapine 25 MG Tablet PO SCH ×2 (10:15→22:12)
[2018-07-26] MEDS: Ferrous Sulfate 325 MG Tablet PO SCH ×3 (10:15→18:56)
[2018-07-26] MEDS: Lisinopril 10 MG Tablet PO SCH (10:16)
[2018-07-26] MEDS ORDERED: Sodium Polystyrene Sulfonate Powder 15 GM Bottle PO ONE (11:00)
[2018-07-26 12:46] LABS: Calcium 8.3 mg/dL (8.5-10.1); Carbon Dioxide 26.2 meq/L (21.0-32.0); Potassium 4.3 meq/L (3.5-5.1)
--- NOTE | 2018-07-26 13:28 | P.PNIM ---
Subjective Interval history: Patient says he is feeling right. He reports his stomach is grumbling, feels like he needs food. Denies any chest pain or shortness of breath. Physical Exam Vital signs: Vital Signs 07/25/18 14:00 07/25/18 15:00 07/25/18 16:00 Temperature 98.5 F Pulse Rate 94 H 94 H 91 H Respiratory Rate 23 29 H 26 H Blood Pressure 120/56 L 110/58 L 106/51 L Pulse Oximetry 99 97 98 07/25/18 17:00 07/25/18 18:00 07/25/18 19:00 Temperature Pulse Rate 92 H 89 88 Respiratory Rate 20 16 Blood Pressure 111/56 L 111/59 L Pulse Oximetry 98 98 07/25/18 20:00 07/25/18 20:05 07/25/18 21:00 Temperature 98.4 F Pulse Rate 85 86 94 H Respiratory Rate 19 22 19 Blood Pressure 113/53 L 95/54 L Pulse Oximetry 96 96 96 07/25/18 22:00 07/25/18 23:00 07/26/18 00:00 Temperature 98.5 F Pulse Rate 99 H 99 H 89 Respiratory Rate 25 H 28 H 25 H Blood Pressure 102/54 L 125/58 L 117/55 L Pulse Oximetry 96 97 96 07/26/18 00:20 07/26/18 00:21 07/26/18 01:00 Temperature Pulse Rate 94 H 84 Respiratory Rate 22 17 Blood Pressure 121/58 L Pulse Oximetry 97 98 07/26/18 02:00 07/26/18 03:00 07/26/18 03:34 Temperature Pulse Rate 83 78 74 Respiratory Rate 24 20 Blood Pressure 130/61 137/62 Pulse Oximetry 98 98 07/26/18 03:35 07/26/18 04:00 07/26/18 04:11 Temperature 98.6 F Pulse Rate 82 78 Respiratory Rate 20 21 13 Blood Pressure 130/58 L Pulse Oximetry 98 98 07/26/18 05:00 07/26/18 06:00 07/26/18 07:30 Temperature Pulse Rate 75 78 73 Respiratory Rate 25 H 12 Blood Pressure 126/59 L Pulse Oximetry 97 99 07/26/18 12:22 Temperature Pulse Rate 88 Respiratory Rate 17 Blood Pressure Pulse Oximetry Intake & Output 07/25/18 07/26/18 07/26/18 18:59 06:59 18:59 Intake Total 1562.50 / 1562.50 562.5 / 562.5 100 / 100 Output Total 1430 / 1430 810 / 810 Balance 132.50 / 132.50 -247.5 / -247.5 100 / 100 Weight 119 kg Intake: IV 1562.50 / 1562.50 562.5 / 562.5 100 / 100 NS Inj 1,000 ML @ 42 mls/hr IV. 1000 / 1000 CONT .[id number] BRETT Rx#:[id number] Azactam Inj 1,000 MG In NS Inj 100 / 100 200 / 200 100 ML @ 200 mls/hr IV.SIG Q8H BRETT Rx#:[id number] Vancomycin Inj 1,250 MG In NS 262.50 / 262.50 262.5 / 262.5 Inj 250 ML @ 250 mls/hr IV.SIG Q12H BRETT Rx#:[id number] Flagyl 500 MG Inj 100 ML @ 100 200 / 200 100 / 100 100 / 100 mls/hr IV.SIG Q8H BRETT Rx#: [id number] Output: Urine Amount (Stoma) 1000 / 1000 750 / 750 Continent Urostomy 1000 / 1000 750 / 750 Chest Tube Drainage 430 / 430 60 / 60 #1 Left 230 / 230 60 / 60 #1 Right 200 / 200 0 / 0 Other: Date of Last Bowel Movement 07/25/18 07/26/18 # Bowel Movements 1 0 Narrative: GENERAL: Patient sitting up in bed. Super morbid obese. Appears comfortable. SKIN: Warm and dry. HEAD: Normocephalic. EYES: No scleral icterus. No injection or drainage. NECK: Plethoric. Unable to do JVD assessment. CARDIOVASCULAR: Regular rate and rhythm without murmurs, gallops, or rubs. RESPIRATORY: Breath sounds equal bilaterally. No accessory muscle use. GASTROINTESTINAL: Abdomen soft, non-tender, nondistended. MUSCULOSKELETAL: No cyanosis, or edema. BACK: Nontender without obvious deformity. No CVA tenderness. Results Labs CBC & Chem 7: 07/25/18 04:00 07/26/18 11:17 Labs: Microbiology 07/24/18 18:20 Fluid - Pleural fluid Gram Stain - Final 07/24/18 18:20 Fluid - Pleural fluid Body Fluid Culture - Preliminary No growth in 48 hours 07/24/18 09:10 Blood - Peripheral Aerobic Blood Culture - Preliminary No growth in 2 days 07/24/18 09:10 Blood - Peripheral Anaerobic Blood Culture - Preliminary No growth in 2 days 07/24/18 09:20 Blood - Peripheral Aerobic Blood Culture - Preliminary No growth in 2 days 07/24/18 09:20 Blood - Peripheral Anaerobic Blood Culture - Preliminary No growth in 2 days 07/24/18 13:05 Clean Catch Urine Urine Culture - Final 50-100,000 cfu/mL mixed eva (probable contaminants ) 07/24/18 18:20 Other Fungal Smear - Final No fungal elements seen 07/24/18 13:05 Urine - Clean Catch Urine Legionella Antigen - Final Presumptive negative for Legionella pneumophila serogroup 1 antigen in urine, suggesting no recent or recurrent infection. Infection due to Legionella cannot be ruled out since other serogroups and species may cause disease, antigen may not be present in urine in early infection, and the level of antigen present in the urine may be below the detection limit of the test. 07/24/18 13:05 Urine - Clean Catch Urine Streptococcus pneumoniae Antigen ( M - Final Presumptive negative for streptococcus pneumoniae antigen, suggesting no current or recent infection. Infection due to Streptococcus pneumoniae cannot be ruled out since the antigen present in the sample may be below the detection limit of the test. Imaging Imaging: Impressions Chest X-Ray 07/26/18 04:00 CONCLUSION: No significant change Assessment and Plan (1) Pleural effusion: Code(s): J90 - Pleural effusion, not elsewhere classified Status: Acute Plan Plan by systems: Neurologic: //Alzheimer's //Schizoaffective disorder //Altered mental status Neurochecks per ICU protocol Avoid sedatives Resume patient's home meds at this time Ammonia level, T4, TSH level-WNL = Appears to be stable neuro dc. Passed speech evaluation. Continue to monitor. Respiratory: //Severe respiratory acidosis //COPD //Bilateral pleural effusions //Acute hypercapnic respiratory failure //Bilateral exudative pleural effusions. Maintain O2 sat greater than 92 % Maintain BiPAP at night Duo nebs and acetylcysteine every 4 hours scheduled dose IR consulted for placement of bilateral chest tubes for draining bilateral large pleural effusions Maintain head of bed greater than 30 Continue budesonide-home medication = Continues on IV steroids, antibiotics for left lower lobe pneumonia. Pulmonology following. Chest tube management as per pulmonology and IR. Appreciate assistance. Cardiovascular: //Hypertension //Hyperlipidemia //Chronic atrial fibrillation Maintain MAP greater than 65 mmHg Continue ASA 81 mg, and atorvastatin 40 mg at bedtime when clinically appropriate. EKGatrial fibrillation Renal: Urostomy -- Strict I/Os FEN/GI: //Super morbid obesity Obtain lipid panel Zofran for nausea Famotidine for GI prophylaxis Obtain formal swallow and initiate diet = Patient cleared for pured diet with thin liquids. Reports of black bowel movement. Patient reports "hunger pains" in his stomach. Will follow-up CBC today. Protonix started p.o. Heme/ID: //Lactic acidemia //Leukocytosis //Sepsis Monitor CBC Blood urine and sputum culture Obtain strep pneumo and influenza A/B Empiric antibiotics provided aztreonam, vancomycin and Flagyl-continue will de- escalate upon speciation of cultures History of recurrent UTI Follow-up lactic acid until clear = cleared = All cultures negative at this time. Continue current antibiotics. Will plan to de-escalate tomorrow. Endocrine: Glucose monitoring per ICU protocol -- SSI Prophylaxis: GI Prophylaxis Famotidine DVT Prophylaxis -- SCDs Heparin subcu Lines: Peripheral IVs x2. Central line if indicated Discharge Planning: Patient will need SNF neurology clearance Palliative care also following
--- NOTE | 2018-07-26 14:00 | P.PNPAL ---
Reason for Visit Reason for visit: a. To assist with evaluation and management of symptoms including: Dyspnea, anxiety b. To assist medical decision maker(s) with: better understanding of current medical conditions; weighing benefits/burdens of medical treatment options; making medical treatment decisions. Subjective Subjective/Interval History: Pt seen today to follow up on comfort, goals. Has remained stable, in Bipap at night. S/p radiology guided chest tube bilaterally. Chest tubes w 200, 290 ml output in last 24 hr. Pleural fluid cult neg x 48 hrs. Influenza neg. Urine cult= mixed eva, poss contaminant. CXR yesterday w improved aeration. CXR today = No significant change. Blood culture no growth x [address] following,pt noted with some delay in bolus movement, pt requesting puree "blenderized" foods. Tolerating thin liqs, puree per request. Chemistry unremarkable. Pt seen in room no visitors present. He is alert, mostly oriented, though limited insight to hospitalization and conditions. Pleasant, cooperative, Denies pain. Denies SOB. Endorses feeling much better overall. Says he is hungry. Reports his friend Taran just left. endorses Taran has been a very good friend to him. Explore his conditions, and chest tubes. he has limited insight. He does endorse he would not want "breathing tubes in his throat" when I discussed intubation. He tells me he was doing much better at his old longterm because they would get him up to w/c he says current NH will not get him up. Following exam call to [facility] Taran. He indicates he was in earlier visiting patient. Updated him on patient current assessment, respiratory status, treatments in place. Review overall conditions progress thus far with treatments. Review with him chest tubes. Review possible patient may return to most recent baseline however all that this could lead him at risk for more lung issues infections etc. He endorses understanding. Explore with him what patient reported regarding getting up in a chair etc. He tells me that in general the patient usually refuses to get up in the chair and that is why the facility stopped doing it, and the chair they would get him and he would intentionally and then would end up having bowel movements on the floor, that he does not like to get into the other chair that has some type of restraint to keep him in it. So they stopped getting them out to the chair. He also indicates the patient had been gaining a lot of weight because he was ordering too much to take out though he has stopped the patient from doing that now. All questions answered, advised we will continue to follow during hospital course. He verbalizes appreciation for updates. History : Of note, pt known to palliative service, this provider from 01/2018. He is custodial resident of [facility]. During that admission he was related for UTI, Pneumonia. He was on bipap, though failed bipap and was intubated. During hospital course episodes of a fib slow ventricular response (rate 30s while asleep). He was later medically extubated. He was a&o x 2-3, with very limited insight. He had known hx of dementia, schizoaffective disorder. During palliative interaction with [facility] Taran Mantilla at that time: "He indicates that back at the time of his mother and grandmother's illness patient had many conversations with him about never wanting to be on a ventilator, especially now wanting to be prolonged on a ventilator, and never wanting artificial measures such as etc. Gently explore with her off of the alternative to these measures if patient's condition worsen would be comfort measures and possibly hospice. Taran indicates in the past he has spoken with providers about hospice. He indicates generally patient seems to bounce back from his infections and other medical complications but that if he continues to deteriorate or does not improve he would likely invoke hospice to provide him comfort care at the nursing facility that he calls home. He requests the patient be made a DNR based on his known wishes and tells me that if the patient agreed to a breathing tube in the ER he probably thought it was just 1 of the masks and that he did not fully understand it would be a ventilator." Taran ultimately elected to continue medical tx short of CPR to try to get pt back to baseline, and if pt deteriorated or did not improve planned to request hospice. Advance Directives Health Care Surrogate Name and Number: Taran Mantilla [phone], Documented care wishes:: standard verbiage details :" No life sustaining treatments if : coma, vegetative , no change of recover, brain damage, completely dependent, confined to bed, vent etc, pain or other severe sx that cannot be relieved, or a condition that will cause to soon even with life sustaining tx". Objective Vital Signs: Vital Signs 07/25/18 14:00 07/25/18 15:00 07/25/18 16:00 Temperature 98.5 F Pulse Rate 94 H 94 H 91 H Respiratory Rate 23 29 H 26 H Blood Pressure 120/56 L 110/58 L 106/51 L Pulse Oximetry 99 97 98 07/25/18 17:00 07/25/18 18:00 07/25/18 19:00 Temperature Pulse Rate 92 H 89 88 Respiratory Rate 20 16 Blood Pressure 111/56 L 111/59 L Pulse Oximetry 98 98 07/25/18 20:00 07/25/18 20:05 07/25/18 21:00 Temperature 98.4 F Pulse Rate 85 86 94 H Respiratory Rate 19 22 19 Blood Pressure 113/53 L 95/54 L Pulse Oximetry 96 96 96 07/25/18 22:00 07/25/18 23:00 07/26/18 00:00 Temperature 98.5 F Pulse Rate 99 H 99 H 89 Respiratory Rate 25 H 28 H 25 H Blood Pressure 102/54 L 125/58 L 117/55 L Pulse Oximetry 96 97 96 07/26/18 00:20 07/26/18 00:21 07/26/18 01:00 Temperature Pulse Rate 94 H 84 Respiratory Rate 22 17 Blood Pressure 121/58 L Pulse Oximetry 97 98 07/26/18 02:00 07/26/18 03:00 07/26/18 03:34 Temperature Pulse Rate 83 78 74 Respiratory Rate 24 20 Blood Pressure 130/61 137/62 Pulse Oximetry 98 98 07/26/18 03:35 07/26/18 04:00 07/26/18 04:11 Temperature 98.6 F Pulse Rate 82 78 Respiratory Rate 20 21 13 Blood Pressure 130/58 L Pulse Oximetry 98 98 07/26/18 05:00 07/26/18 06:00 07/26/18 07:30 Temperature Pulse Rate 75 78 73 Respiratory Rate 25 H 12 Blood Pressure 126/59 L Pulse Oximetry 97 99 07/26/18 12:22 Temperature Pulse Rate 88 Respiratory Rate 17 Blood Pressure Pulse Oximetry Intake & Output 07/25/18 07/26/18 07/26/18 18:59 06:59 18:59 Intake Total 1562.50 / 1562.50 562.5 / 562.5 100 / 100 Output Total 1430 / 1430 810 / 810 Balance 132.50 / 132.50 -247.5 / -247.5 100 / 100 Weight 119 kg Intake: IV 1562.50 / 1562.50 562.5 / 562.5 100 / 100 NS Inj 1,000 ML @ 42 mls/hr IV. 1000 / 1000 CONT .[id number] BRETT Rx#:[id number] Azactam Inj 1,000 MG In NS Inj 100 / 100 200 / 200 100 ML @ 200 mls/hr IV.SIG Q8H BRETT Rx#:[id number] Vancomycin Inj 1,250 MG In NS 262.50 / 262.50 262.5 / 262.5 Inj 250 ML @ 250 mls/hr IV.SIG Q12H BRETT Rx#:[id number] Flagyl 500 MG Inj 100 ML @ 100 200 / 200 100 / 100 100 / 100 mls/hr IV.SIG Q8H BRETT Rx#: [id number] Output: Urine Amount (Stoma) 1000 / 1000 750 / 750 Continent Urostomy 1000 / 1000 750 / 750 Chest Tube Drainage 430 / 430 60 / 60 #1 Left 230 / 230 60 / 60 #1 Right 200 / 200 0 / 0 Other: Date of Last Bowel Movement 07/25/18 07/26/18 # Bowel Movements 1 0 Physical Exam: CONSTITUTIONAL/GENERAL: This is an obese, pale elderly male initially minimally responsive to exam though later verbal and partially oriented TUBES/LINES/DRAINS: Peripheral IV upper extremities, urostomy drainage bag SKIN: No jaundice, rashes, or lesions. Skin pale. No wounds seen anteriorly. Skin cool, dry. HEAD: Atraumatic. Normocephalic. EYES: Pupils equal and round and reactive. No scleral icterus. No injection or drainage. Fundi not examined. ENT: Nose without bleeding or purulent drainage. Unable to visualize oropharynx due to BiPAP mask NECK: Trachea midline. Very large wide neck/jaw. Supple, nontender. No palpable thyroid enlargement or nodularity. CARDIOVASCULAR: Irregular rate and rhythm. Atrial fib observed on bedside monitor. Rate controlled per no JVD. Referral pulses are faint. RESPIRATORY/CHEST: Symmetric, unlabored respirations via BiPAP mask. 100% FiO2. Respirations 15-16/min. Diminished air movement throughout. GASTROINTESTINAL: Abdomen soft, obese, no apparent tenderness, nondistended. No palpable masses. No guarding. Bowel sounds present. GENITOURINARY: Without palpable bladder distension. Urostomy drain in place. Draining clear yellow urine. MUSCULOSKELETAL: Extremities without clubbing, cyanosis, or edema. No joint tenderness or effusion noted. No mottling NEUROLOGICAL: Initially lethargic and minimally responsive to my exam. Upon my later return is more awake verbalizing some partially oriented recognizes friend. Limited to poor insight to hospitalization. Moving all 4 extremities and following commands. PSYCHIATRIC: No obvious anxiety/depression. no apparent hallucinations or other psychotic thought process. Diagnostic Tests Laboratory: Laboratory Results - last 72 hr 07/24/18 07/24/18 07/24/18 09:20 09:20 09:20 WBC 13.9 H RBC 4.04 L Hgb 12.3 L Hct 38.5 L MCV 95.1 MCH 30.4 MCHC 32.0 RDW 15.4 Plt Count 271 MPV 8.5 Prelim Diff (Auto) Slide review pending Neut % (Auto) 72.5 H Lymph % (Auto) 19.8 [place] % (Auto) 5.9 Eos % (Auto) 1.3 Baso % (Auto) 0.5 Neut # (Auto) 10.1 H Lymph # (Auto) 2.7 [place] # (Auto) 0.8 Eos # (Auto) 0.2 Baso # (Auto) 0.1 WBC Differential . Diff Scan Auto diff confirmed Differential Comment . PT 10.4 INR 1.0 APTT 24.7 Puncture Site Patient Temperature O2 Saturation ABG pH ABG pCO2 ABG pO2 ABG HCO3 ABG O2 Content ABG Base Excess ABG Methemoglobin Navjot Test Hemoglobin Carboxyhemoglobin O2 Delivery Device Vent Setting Inspired O2 Critical Value Sodium 135 L Potassium 5.1 Chloride 94 L Carbon Dioxide 38.5 H Anion Gap 3 L BUN 16 Creatinine 1.03 Estimated GFR 70 L POC Glucose Random Glucose 258 H Lactic Acid Calcium 8.7 Phosphorus Magnesium 2.7 H Total Bilirubin 0.4 AST 20 ALT 31 Alkaline Phosphatase 97 Ammonia Troponin I Less than 0.02 L B-Natriuretic Peptide Total Protein 7.6 Albumin 3.2 L Lipase 64 L TSH Thyroxine (T4) Cortisol Urine Color Urine Clarity Urine pH Ur Specific [place] Urine Protein Urine Glucose (UA) Urine Ketones Urine Occult Blood Urine Nitrate Urine Bilirubin Urine Urobilinogen Ur Leukocyte Esterase Urine RBC Urine WBC Urine WBC Clumps Urine Bacteria Hyaline Casts Micro UA Comment Ur Microscopic Review Urine Culture Comments Pleural pH Pleural RBC Pleural Nuc Cells Pleural Neutrophils Pleural Lymphocytes Pleural Monocytes Pleural Mesothelial Pleural Other Cells Pleural Total Protein Pleural LDH Pleural Glucose Pleural Amylase Nasal Screen MRSA (PCR) Vancomycin Trough Blood Type Blood Type Recheck Antibody Screen 07/24/18 07/24/18 07/24/18 09:29 09:30 09:31 WBC RBC Hgb Hct MCV MCH MCHC RDW Plt Count MPV Prelim Diff (Auto) Neut % (Auto) Lymph % (Auto) [place] % (Auto) Eos % (Auto) Baso % (Auto) Neut # (Auto) Lymph # (Auto) [place] # (Auto) Eos # (Auto) Baso # (Auto) WBC Differential Diff Scan Differential Comment PT INR APTT Puncture Site Left radial Patient Temperature 98.6 O2 Saturation 91 ABG pH 7.10 L* ABG pCO2 122 H* ABG pO2 87 ABG HCO3 37 H ABG O2 Content 15.2 ABG Base Excess 7.1 H ABG Methemoglobin 0.7 Navjot Test Present Hemoglobin 11.7 L Carboxyhemoglobin 0.8 O2 Delivery Device Bipap Vent Setting Inspired O2 100 Critical Value Yes Sodium Potassium Chloride Carbon Dioxide Anion Gap BUN Creatinine Estimated GFR POC Glucose 240 H Random Glucose Lactic Acid 2.3 H Calcium Phosphorus Magnesium Total Bilirubin AST ALT Alkaline Phosphatase Ammonia Troponin I B-Natriuretic Peptide Total Protein Albumin Lipase TSH Thyroxine (T4) Cortisol Urine Color Urine Clarity Urine pH Ur Specific [place] Urine Protein Urine Glucose (UA) Urine Ketones Urine Occult Blood Urine Nitrate Urine Bilirubin Urine Urobilinogen Ur Leukocyte Esterase Urine RBC Urine WBC Urine WBC Clumps Urine Bacteria Hyaline Casts Micro UA Comment Ur Microscopic Review Urine Culture Comments Pleural pH Pleural RBC Pleural Nuc Cells Pleural Neutrophils Pleural Lymphocytes Pleural Monocytes Pleural Mesothelial Pleural Other Cells Pleural Total Protein Pleural LDH Pleural Glucose Pleural Amylase Nasal Screen MRSA (PCR) Vancomycin Trough Blood Type Blood Type Recheck Antibody Screen 07/24/18 07/24/18 07/24/18 09:55 10:14 10:15 WBC RBC Hgb Hct MCV MCH MCHC RDW Plt Count MPV Prelim Diff (Auto) Neut % (Auto) Lymph % (Auto) [place] % (Auto) Eos % (Auto) Baso % (Auto) Neut # (Auto) Lymph # (Auto) [place] # (Auto) Eos # (Auto) Baso # (Auto) WBC Differential Diff Scan Differential Comment PT INR APTT Puncture Site Patient Temperature O2 Saturation ABG pH ABG pCO2 ABG pO2 ABG HCO3 ABG O2 Content ABG Base Excess ABG Methemoglobin Navjot Test Hemoglobin Carboxyhemoglobin O2 Delivery Device Vent Setting Inspired O2 Critical Value Sodium Potassium Chloride Carbon Dioxide Anion Gap BUN Creatinine Estimated GFR POC Glucose Random Glucose Lactic Acid Calcium Phosphorus Magnesium Total Bilirubin AST ALT Alkaline Phosphatase Ammonia Troponin I B-Natriuretic Peptide 173 H Total Protein Albumin Lipase TSH Thyroxine (T4) Cortisol Urine Color Yael Urine Clarity Cloudy H Urine pH 6.0 Ur Specific [place] 1.036 H Urine Protein 100 H Urine Glucose (UA) Negative Urine Ketones Negative Urine Occult Blood Moderate H Urine Nitrate Negative Urine Bilirubin Negative Urine Urobilinogen Less than 2 Ur Leukocyte Esterase Large H Urine RBC 31 H Urine WBC Urine WBC Clumps Few H Urine Bacteria Many H Hyaline Casts 9 Micro UA Comment Cath-culture ind Ur Microscopic Review Not Reportable Urine Culture Comments Cath-cult indicated Pleural pH Pleural RBC Pleural Nuc Cells Pleural Neutrophils Pleural Lymphocytes Pleural Monocytes Pleural Mesothelial Pleural Other Cells Pleural Total Protein Pleural LDH Pleural Glucose Pleural Amylase Nasal Screen MRSA (PCR) Vancomycin Trough Blood Type A Positive Blood Type Recheck Required Antibody Screen Negative 07/24/18 07/24/18 07/24/18 11:40 13:06 13:06 WBC RBC Hgb Hct MCV MCH MCHC RDW Plt Count MPV Prelim Diff (Auto) Neut % (Auto) Lymph % (Auto) [place] % (Auto) Eos % (Auto) Baso % (Auto) Neut # (Auto) Lymph # (Auto) [place] # (Auto) Eos # (Auto) Baso # (Auto) WBC Differential Diff Scan Differential Comment PT INR APTT Puncture Site Patient Temperature O2 Saturation ABG pH ABG pCO2 ABG pO2 ABG HCO3 ABG O2 Content ABG Base Excess ABG Methemoglobin Navjot Test Hemoglobin Carboxyhemoglobin O2 Delivery Device Vent Setting Inspired O2 Critical Value Sodium Potassium Chloride Carbon Dioxide Anion Gap BUN Creatinine Estimated GFR POC Glucose Random Glucose Lactic Acid 2.5 H Calcium Phosphorus Magnesium Total Bilirubin AST ALT Alkaline Phosphatase Ammonia Troponin I B-Natriuretic Peptide Total Protein Albumin Lipase TSH Thyroxine (T4) 7.1 Cortisol 33.4 Urine Color Urine Clarity Urine pH Ur Specific [place] Urine Protein Urine Glucose (UA) Urine Ketones Urine Occult Blood Urine Nitrate Urine Bilirubin Urine Urobilinogen Ur Leukocyte Esterase Urine RBC Urine WBC Urine WBC Clumps Urine Bacteria Hyaline Casts Micro UA Comment Ur Microscopic Review Urine Culture Comments Pleural pH Pleural RBC Pleural Nuc Cells Pleural Neutrophils Pleural Lymphocytes Pleural Monocytes Pleural Mesothelial Pleural Other Cells Pleural Total Protein Pleural LDH Pleural Glucose Pleural Amylase Nasal Screen MRSA (PCR) Vancomycin Trough Blood Type Blood Type Recheck Antibody Screen 07/24/18 07/24/18 07/24/18 13:06 14:12 14:29 WBC RBC Hgb Hct MCV MCH MCHC RDW Plt Count MPV Prelim Diff (Auto) Neut % (Auto) Lymph % (Auto) [place] % (Auto) Eos % (Auto) Baso % (Auto) Neut # (Auto) Lymph # (Auto) [place] # (Auto) Eos # (Auto) Baso # (Auto) WBC Differential Diff Scan Differential Comment PT INR APTT Puncture Site Left radial Patient Temperature 98.6 O2 Saturation 93 ABG pH 7.23 L* ABG pCO2 93 H* ABG pO2 83 ABG HCO3 37 H ABG O2 Content 14.2 ABG Base Excess 9.6 H ABG Methemoglobin 0.7 Navjot Test Present Hemoglobin 10.7 L Carboxyhemoglobin 1.0 O2 Delivery Device Vent Setting B Inspired O2 100 Critical Value Yes Sodium Potassium Chloride Carbon Dioxide Anion Gap BUN Creatinine Estimated GFR POC Glucose Random Glucose Lactic Acid Calcium Phosphorus Magnesium Total Bilirubin AST ALT Alkaline Phosphatase Ammonia 27 Troponin I 0.05 B-Natriuretic Peptide Total Protein Albumin Lipase TSH 1.910 Thyroxine (T4) Cortisol Urine Color Urine Clarity Urine pH Ur Specific [place] Urine Protein Urine Glucose (UA) Urine Ketones Urine Occult Blood Urine Nitrate Urine Bilirubin Urine Urobilinogen Ur Leukocyte Esterase Urine RBC Urine WBC Urine WBC Clumps Urine Bacteria Hyaline Casts Micro UA Comment Ur Microscopic Review Urine Culture Comments Pleural pH Pleural RBC Pleural Nuc Cells Pleural Neutrophils Pleural Lymphocytes Pleural Monocytes Pleural Mesothelial Pleural Other Cells Pleural Total Protein Pleural LDH Pleural Glucose Pleural Amylase Nasal Screen MRSA (PCR) Vancomycin Trough Blood Type Blood Type Recheck Antibody Screen 07/24/18 07/24/18 07/24/18 17:10 18:20 18:20 WBC RBC Hgb Hct MCV MCH MCHC RDW Plt Count MPV Prelim Diff (Auto) Neut % (Auto) Lymph % (Auto) [place] % (Auto) Eos % (Auto) Baso % (Auto) Neut # (Auto) Lymph # (Auto) [place] # (Auto) Eos # (Auto) Baso # (Auto) WBC Differential Diff Scan Differential Comment PT INR APTT Puncture Site Patient Temperature O2 Saturation ABG pH ABG pCO2 ABG pO2 ABG HCO3 ABG O2 Content ABG Base Excess ABG Methemoglobin Navjot Test Hemoglobin Carboxyhemoglobin O2 Delivery Device Vent Setting Inspired O2 Critical Value Sodium Potassium Chloride Carbon Dioxide Anion Gap BUN Creatinine Estimated GFR POC Glucose Random Glucose Lactic Acid Calcium Phosphorus Magnesium Total Bilirubin AST ALT Alkaline Phosphatase Ammonia Troponin I B-Natriuretic Peptide Total Protein Albumin Lipase TSH Thyroxine (T4) Cortisol Urine Color Urine Clarity Urine pH Ur Specific [place] Urine Protein Urine Glucose (UA) Urine Ketones Urine Occult Blood Urine Nitrate Urine Bilirubin Urine Urobilinogen Ur Leukocyte Esterase Urine RBC Urine WBC Urine WBC Clumps Urine Bacteria Hyaline Casts Micro UA Comment Ur Microscopic Review Urine Culture Comments Pleural pH 8.5 Pleural RBC 47965 H Pleural Nuc Cells 525 H Pleural Neutrophils 15 Pleural Lymphocytes 66 Pleural Monocytes 7 Pleural Mesothelial 9 Pleural Other Cells 3 Pleural Total Protein 2.4 Pleural LDH 867 Pleural Glucose 152 Pleural Amylase 37 Nasal Screen MRSA (PCR) Mrsa detected Vancomycin Trough Blood Type Blood Type Recheck Antibody Screen 07/24/18 07/24/18 07/24/18 18:35 19:03 23:55 WBC RBC Hgb Hct MCV MCH MCHC RDW Plt Count MPV Prelim Diff (Auto) Neut % (Auto) Lymph % (Auto) [place] % (Auto) Eos % (Auto) Baso % (Auto) Neut # (Auto) Lymph # (Auto) [place] # (Auto) Eos # (Auto) Baso # (Auto) WBC Differential Diff Scan Differential Comment PT INR APTT Puncture Site Patient Temperature O2 Saturation ABG pH ABG pCO2 ABG pO2 ABG HCO3 ABG O2 Content ABG Base Excess ABG Methemoglobin Navjot Test Hemoglobin Carboxyhemoglobin O2 Delivery Device Vent Setting Inspired O2 Critical Value Sodium Potassium Chloride Carbon Dioxide Anion Gap BUN Creatinine Estimated GFR POC Glucose 160 H 131 H Random Glucose Lactic Acid 2.1 H Calcium Phosphorus Magnesium Total Bilirubin AST ALT Alkaline Phosphatase Ammonia Troponin I B-Natriuretic Peptide Total Protein Albumin Lipase TSH Thyroxine (T4) Cortisol Urine Color Urine Clarity Urine pH Ur Specific [place] Urine Protein Urine Glucose (UA) Urine Ketones Urine Occult Blood Urine Nitrate Urine Bilirubin Urine Urobilinogen Ur Leukocyte Esterase Urine RBC Urine WBC Urine WBC Clumps Urine Bacteria Hyaline Casts Micro UA Comment Ur Microscopic Review Urine Culture Comments Pleural pH Pleural RBC Pleural Nuc Cells Pleural Neutrophils Pleural Lymphocytes Pleural Monocytes Pleural Mesothelial Pleural Other Cells Pleural Total Protein Pleural LDH Pleural Glucose Pleural Amylase Nasal Screen MRSA (PCR) Vancomycin Trough Blood Type Blood Type Recheck Antibody Screen 07/24/18 07/25/18 07/25/18 23:58 02:00 04:00 WBC 14.2 H RBC 3.53 L Hgb 10.6 L Hct 33.1 L MCV 93.8 MCH 30.0 MCHC 32.0 RDW 15.3 Plt Count 188 D MPV 8.6 Prelim Diff (Auto) Neut % (Auto) 91.4 H Lymph % (Auto) 3.9 L [place] % (Auto) 4.3 Eos % (Auto) 0.0 Baso % (Auto) 0.4 Neut # (Auto) 13.0 H Lymph # (Auto) 0.6 L [place] # (Auto) 0.6 Eos # (Auto) 0.0 Baso # (Auto) 0.1 WBC Differential . Diff Scan Differential Comment Auto diff final PT INR APTT Puncture Site Patient Temperature O2 Saturation ABG pH ABG pCO2 ABG pO2 ABG HCO3 ABG O2 Content ABG Base Excess ABG Methemoglobin Navjot Test Hemoglobin Carboxyhemoglobin O2 Delivery Device Vent Setting Inspired O2 Critical Value Sodium 138 Potassium 5.5 H Chloride 97 L Carbon Dioxide 36.5 H Anion Gap 5 BUN 22 H Creatinine 0.93 Estimated GFR 79 L POC Glucose 116 H Random Glucose 115 H D Lactic Acid Calcium 8.3 L Phosphorus 3.7 Magnesium 2.5 Total Bilirubin 0.3 AST 15 ALT 24 Alkaline Phosphatase 76 Ammonia Troponin I B-Natriuretic Peptide Total Protein 6.5 D Albumin 2.8 L Lipase TSH Thyroxine (T4) Cortisol Urine Color Urine Clarity Urine pH Ur Specific [place] Urine Protein Urine Glucose (UA) Urine Ketones Urine Occult Blood Urine Nitrate Urine Bilirubin Urine Urobilinogen Ur Leukocyte Esterase Urine RBC Urine WBC Urine WBC Clumps Urine Bacteria Hyaline Casts Micro UA Comment Ur Microscopic Review Urine Culture Comments Pleural pH Pleural RBC Pleural Nuc Cells Pleural Neutrophils Pleural Lymphocytes Pleural Monocytes Pleural Mesothelial Pleural Other Cells Pleural Total Protein Pleural LDH Pleural Glucose Pleural Amylase Nasal Screen MRSA (PCR) Vancomycin Trough Blood Type Blood Type Recheck Antibody Screen 07/25/18 07/25/18 07/25/18 04:00 11:54 17:59 WBC RBC Hgb Hct MCV MCH MCHC RDW Plt Count MPV Prelim Diff (Auto) Neut % (Auto) Lymph % (Auto) [place] % (Auto) Eos % (Auto) Baso % (Auto) Neut # (Auto) Lymph # (Auto) [place] # (Auto) Eos # (Auto) Baso # (Auto) WBC Differential Diff Scan Differential Comment PT INR APTT Puncture Site Patient Temperature O2 Saturation ABG pH ABG pCO2 ABG pO2 ABG HCO3 ABG O2 Content ABG Base Excess ABG Methemoglobin Navjot Test Hemoglobin Carboxyhemoglobin O2 Delivery Device Vent Setting Inspired O2 Critical Value Sodium Potassium Chloride Carbon Dioxide Anion Gap BUN Creatinine Estimated GFR POC Glucose 85 114 H Random Glucose Lactic Acid 1.3 Calcium Phosphorus Magnesium Total Bilirubin AST ALT Alkaline Phosphatase Ammonia Troponin I B-Natriuretic Peptide Total Protein Albumin Lipase TSH Thyroxine (T4) Cortisol Urine Color Urine Clarity Urine pH Ur Specific [place] Urine Protein Urine Glucose (UA) Urine Ketones Urine Occult Blood Urine Nitrate Urine Bilirubin Urine Urobilinogen Ur Leukocyte Esterase Urine RBC Urine WBC Urine WBC Clumps Urine Bacteria Hyaline Casts Micro UA Comment Ur Microscopic Review Urine Culture Comments Pleural pH Pleural RBC Pleural Nuc Cells Pleural Neutrophils Pleural Lymphocytes Pleural Monocytes Pleural Mesothelial Pleural Other Cells Pleural Total Protein Pleural LDH Pleural Glucose Pleural Amylase Nasal Screen MRSA (PCR) Vancomycin Trough Blood Type Blood Type Recheck Antibody Screen 07/25/18 07/26/18 07/26/18 23:22 02:45 05:29 WBC RBC Hgb Hct MCV MCH MCHC RDW Plt Count MPV Prelim Diff (Auto) Neut % (Auto) Lymph % (Auto) [place] % (Auto) Eos % (Auto) Baso % (Auto) Neut # (Auto) Lymph # (Auto) [place] # (Auto) Eos # (Auto) Baso # (Auto) WBC Differential Diff Scan Differential Comment PT INR APTT Puncture Site Patient Temperature O2 Saturation ABG pH ABG pCO2 ABG pO2 ABG HCO3 ABG O2 Content ABG Base Excess ABG Methemoglobin Navjot Test Hemoglobin Carboxyhemoglobin O2 Delivery Device Vent Setting Inspired O2 Critical Value Sodium Potassium Chloride Carbon Dioxide Anion Gap BUN Creatinine Estimated GFR POC Glucose 170 H 127 H Random Glucose Lactic Acid Calcium Phosphorus Magnesium Total Bilirubin AST ALT Alkaline Phosphatase Ammonia Troponin I B-Natriuretic Peptide Total Protein Albumin Lipase TSH Thyroxine (T4) Cortisol Urine Color Urine Clarity Urine pH Ur Specific [place] Urine Protein Urine Glucose (UA) Urine Ketones Urine Occult Blood Urine Nitrate Urine Bilirubin Urine Urobilinogen Ur Leukocyte Esterase Urine RBC Urine WBC Urine WBC Clumps Urine Bacteria Hyaline Casts Micro UA Comment Ur Microscopic Review Urine Culture Comments Pleural pH Pleural RBC Pleural Nuc Cells Pleural Neutrophils Pleural Lymphocytes Pleural Monocytes Pleural Mesothelial Pleural Other Cells Pleural Total Protein Pleural LDH Pleural Glucose Pleural Amylase Nasal Screen MRSA (PCR) Vancomycin Trough 22.2 H Blood Type Blood Type Recheck Antibody Screen 07/26/18 11:17 WBC RBC Hgb Hct MCV MCH MCHC RDW Plt Count MPV Prelim Diff (Auto) Neut % (Auto) Lymph % (Auto) [place] % (Auto) Eos % (Auto) Baso % (Auto) Neut # (Auto) Lymph # (Auto) [place]uel # (Auto) Eos # (Auto) Baso # (Auto) WBC Differential Diff Scan Differential Comment PT INR APTT Puncture Site Patient Temperature O2 Saturation ABG pH ABG pCO2 ABG pO2 ABG HCO3 ABG O2 Content ABG Base Excess ABG Methemoglobin Navjot Test Hemoglobin Carboxyhemoglobin O2 Delivery Device Vent Setting Inspired O2 Critical Value Sodium 138 Potassium 4.3 D Chloride 105 D Carbon Dioxide 26.2 D Anion Gap 7 BUN 27 H Creatinine 0.89 Estimated GFR 83 L POC Glucose Random Glucose 147 H Lactic Acid Calcium 8.3 L Phosphorus Magnesium Total Bilirubin AST ALT Alkaline Phosphatase Ammonia Troponin I B-Natriuretic Peptide Total Protein Albumin Lipase TSH Thyroxine (T4) Cortisol Urine Color Urine Clarity Urine pH Ur Specific [place] Urine Protein Urine Glucose (UA) Urine Ketones Urine Occult Blood Urine Nitrate Urine Bilirubin Urine Urobilinogen Ur Leukocyte Esterase Urine RBC Urine WBC Urine WBC Clumps Urine Bacteria Hyaline Casts Micro UA Comment Ur Microscopic Review Urine Culture Comments Pleural pH Pleural RBC Pleural Nuc Cells Pleural Neutrophils Pleural Lymphocytes Pleural Monocytes Pleural Mesothelial Pleural Other Cells Pleural Total Protein Pleural LDH Pleural Glucose Pleural Amylase Nasal Screen MRSA (PCR) Vancomycin Trough Blood Type Blood Type Recheck Antibody Screen Result Diagrams: 07/25/18 04:00 07/26/18 11:17 Microbiology: Microbiology 07/24/18 18:20 Gram Stain - Final Fluid - Pleural fluid Body Fluid Culture - Preliminary No growth in 48 hours 07/24/18 09:10 Aerobic Blood Culture - Preliminary Blood - Peripheral No growth in 2 days Anaerobic Blood Culture - Preliminary No growth in 2 days 07/24/18 09:20 Aerobic Blood Culture - Preliminary Blood - Peripheral No growth in 2 days Anaerobic Blood Culture - Preliminary No growth in 2 days 07/24/18 13:05 Urine Culture - Final Clean Catch Urine 50-100,000 cfu/mL mixed eva (probable contaminants) 07/24/18 18:20 Fungal Smear - Final Other No fungal elements seen 07/24/18 13:05 Legionella Antigen - Final Urine - Clean Catch Urine Presumptive negative for Legionella pneumophila serogroup 1 antigen in urine, suggesting no recent or recurrent infection. Infection due to Legionella cannot be ruled out since other serogroups and species may cause disease, antigen may not be present in urine in early infection, and the level of antigen present in the urine may be below the detection limit of the test. 07/24/18 13:05 Streptococcus pneumoniae Antigen (M - Final Urine - Clean Catch Urine Presumptive negative for streptococcus pneumoniae antigen, suggesting no current or recent infection. Infection due to Streptococcus pneumoniae cannot be ruled out since the antigen present in the sample may be below the detection limit of the test. 07/24/18 10:15 Influenza Types A,B Antigen - Final Nasal Wash Negative for FLU A and B antigen Infection due to influenza A or B cannot be ruled out since the antigen present in the sample may be below the detection limit of the test. Imaging: Impressions Chest Tube Insertion 07/24/18 00:00 CONCLUSION: 1. Uncomplicated chest tube placement as above. Chest Tube Insertion 07/24/18 00:00 CONCLUSION: 1. Uncomplicated chest tube placement as above. Chest X-Ray 07/24/18 00:00 CONCLUSION: Slight worsening opacification of the right lung with less aeration right apex. Head CT 07/24/18 11:15 CONCLUSION: Slight chronic small vessel ischemic and atrophic changes. Chest X-Ray 07/25/18 16:24 CONCLUSION: Improved aeration. The right thoracostomy tube does not appear to be in the chest cavity Chest X-Ray 07/26/18 04:00 CONCLUSION: No significant change Procedures: 07/24/[address] Assessment and Plan - Disease Oriented Problem List (1) Hypercapnic respiratory failure (2) Hypertension (3) Hypothyroid (4) Schizoaffective disorder (5) Dementia (6) History of CVA with residual deficit (7) Bladder cancer (8) History of urostomy (9) Pleural effusion (10) Atrial fibrillation (11) Altered mental status (12) COPD (chronic obstructive pulmonary disease) (13) Hyperlipidemia Pertinent Non-Medical Issues: Psychosocial: Patient originally from [place] though moved to [place] many years ago when his family did. 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 He has never has no children. All of his family is , he is supported by Mr mantilla friend of many years Spiritual: Yazidi mervin prev admissions declines management trainee program stores visit indicates well supported by spiritual leader at his SNF Legal: Patient has previously been alert and oriented ;however he appeared to have had limited insight. He also has some underlying dementia based on available records as well as friends report, as well as history of schizoaffective disorder. Currently unable to participate due to critical clinical condition. Has HCS designation from [place] 2010 naming Taran Mantilla, and additional HCS dated 01/2018 naming same. He has previously been able to participate some in decision making though major decision should be made by his designated surrogate as his insight appears limited and given his fluctuations he may not have good recall of benefit/burden/decisions made. Ethical issues impacting care: No ethical issues identified. Important Contacts: Taran Mantilla [facility]- [phone], [facility] [phone] Prognosis: This patient was admitted for altered mental status, and shortness of breath. Findings of complete white out right chest. Will require chest tubes. CTA negative for PE. He has multiple chronic medical conditions, and baseline is debilitated/ bedbound; does remain at risk for ongoing complications and setbacks. Code Status: No Code DNR Plan: * LEGAL Patient has previously been alert and oriented ;however he appeared to have had limited insight. He also has some underlying dementia based on available records as well as friends report, as well as history of schizoaffective disorder. Currently unable to participate due to critical clinical condition. Has HCS designation from [place] 2010 naming Taran Mantilla, and additional HCS dated 01/2018 naming same. He has previously been able to participate some in decision making though major decision should be made by his designated surrogate as his insight appears limited and given his fluctuations he may not have good recall of benefit/burden/decisions made. * Goals: Goals aggressive short of resuscitation. Patient has long endorse not wanting any types of breathing tubes or resuscitation per healthcare surrogate. Healthcare surrogate hopeful he can get back to most recent baseline and return to nursing facility. * CODE STATUS: DNR SYMPTOMS: --Dyspnea--admitted for AMS/ acute shortness of breath. Long history of COPD , CPAP, DEE. 01/2018. admission : Intubated for a short course, extubated after 24 hours Uses BiPAP at night. Bilateral chest tubes placed 07/24. CXR yesterday with some improvement, CXR today unchanged. -- pain- no signs/sx pain- denies pain .We will continue to evaluate. -- anxiety- potential for r/t hx dementia/confusion and schizoaffective disorder, BiPAP. currently relatively calm/comfortable, initially with altered mental status, lethargy upon ER presentation. Now alert partially oriented. We will continue to evaluate Palliative care will continue to follow during hospital course as condition evolves, to assist patient/decision-maker with understanding of medical conditions, weighing benefits/burdens of treatment options, for clarification of goals of treatment. Additionally will assist with any symptoms of palliative concern Attestation Attestation: To help prompt me to consider important information that might be impacting today's encounter and assessment, information from prior notes written by myself or my colleagues may have been "brought forward" into today's note. My signature on this note, however, is an attestation that I personally performed the exam, history, and/or decision-making noted today, and, unless otherwise indicated, the interactions with patient, family, and staff as well as the review of records all occurred today. I also attest that the listed assessment and stated plan reflect my best clinical judgment today based on the combination of historical information, prior notes, and today's exam/ interactions. When time spent is documented, it refers only to time spent today by the signer, or if indicated, combined time spent today by collaborating physician/nurse practitioner.
[2018-07-26 15:24] LABS: Baso % (Auto) 0.2 % (0.0-2.0); Hematocrit 33.6 % (39.0-51.0); Lymph # (Auto) 0.5 th/mm3 (1.0-4.8); Lymph % (Auto) 4.5 % (9.0-44.0); Mean Corpuscular HGB Conc 32.6 % (32.0-36.0); Mean Corpuscular Hemoglobin 30.3 pg (27.0-34.0); Mean Corpuscular Volume 93.1 fL (80.0-100.0); Mean Platelet Volume 8.7 fL (7.0-11.0); Mono # (Auto) 0.8 th/mm3 (0.0-0.9); Mono % (Auto) 6.8 % (0.0-8.0); Neut # (Auto) 10.2 th/mm3 (1.8-7.7); Neut % (Auto) 88.5 % (16.0-70.0); Platelet Count 189 th/mm3 (150-450); Red Blood Count 3.61 mil/mm3 (4.50-5.90); Red Cell Distribution Width 15.3 % (11.6-17.2); White Blood Count 11.6 th/mm3 (4.0-11.0)
[2018-07-26] MEDS: Sod Chloride 0.9% Inj 1,000 ML IV.CONT SCH (15:56)
[2018-07-26] MEDS: Montelukast 10 MG Tablet PO SCH (22:12)
[2018-07-27] MEDS: RESP: Acetylcysteine 10% 4 ML Neb NEB SCH ×4 (00:29→12:46)
[2018-07-27] MEDS: Insulin NovoLOG Aspart Correctional Sugar Inj SQ SCH ×5 (01:28→23:15)
[2018-07-27] MEDS: Heparin - SQ 10,000 UNITS/ML Vial SQ SCH ×2 (01:28→16:48)
[2018-07-27] MEDS: Chlorhexidine Gluconate 2% 1 Pack (2 Cloths) TOPICAL SCH (05:55)
[2018-07-27] MEDS: Levothyroxine 50 MCG Tablet PO SCH (05:56)
[2018-07-27] MEDS: MethylPREDNISolone Sod Succinate Inj 40 MG/ML Vial IV.PUSH SCH ×3 (05:56→21:44)
[2018-07-27 07:21] LABS: Baso % (Auto) 0.3 % (0.0-2.0); Hematocrit 35.9 % (39.0-51.0); Hemoglobin 11.6 gm/dL (13.0-17.0); Lymph # (Auto) 0.6 th/mm3 (1.0-4.8); Lymph % (Auto) 5.7 % (9.0-44.0); Mean Corpuscular HGB Conc 32.3 % (32.0-36.0); Mean Corpuscular Hemoglobin 30.4 pg (27.0-34.0); Mean Corpuscular Volume 94.2 fL (80.0-100.0); Mean Platelet Volume 8.8 fL (7.0-11.0); Mono # (Auto) 0.5 th/mm3 (0.0-0.9); Mono % (Auto) 4.5 % (0.0-8.0); Neut # (Auto) 9.9 th/mm3 (1.8-7.7); Neut % (Auto) 89.5 % (16.0-70.0); Platelet Count 182 th/mm3 (150-450); Red Blood Count 3.81 mil/mm3 (4.50-5.90); Red Cell Distribution Width 15.9 % (11.6-17.2); White Blood Count 11.1 th/mm3 (4.0-11.0)
[2018-07-27 07:57] LABS: Albumin 2.8 g/dL (3.4-5.0); Calcium 8.4 mg/dL (8.5-10.1); Carbon Dioxide 28.6 meq/L (21.0-32.0); Magnesium 2.6 mg/dL (1.5-2.5); Potassium 4.2 meq/L (3.5-5.1)
[2018-07-27 08:00] LABS: Phosphorus 2.7 mg/dL (2.5-4.9); Total Protein 6.2 g/dL (6.4-8.2); Vancomycin,Random 15.7 Comment
[2018-07-27] MEDS: Ferrous Sulfate 325 MG Tablet PO SCH ×3 (08:36→17:00)
[2018-07-27] MEDS: Lisinopril 10 MG Tablet PO SCH (08:37)
[2018-07-27] MEDS: Famotidine PF Inj 20 MG/2 ML Vial IV.PUSH SCH ×2 (08:37→21:44)
[2018-07-27] MEDS: Senna/Docusate Sodium 8.6/50 MG Tablet PO SCH ×2 (08:37→21:44)
[2018-07-27] MEDS: QUEtiapine 25 MG Tablet PO SCH ×2 (08:37→21:43)
--- NOTE | 2018-07-27 10:13 | P.PNIM ---
Subjective Interval history: Follow-up encephalopathy/severe respiratory acidosis/ bilateral pleural effusions/lactic acidosis July 27, 2018patient seen and examined, denies any chest pain reported improvement of shortness of breath. No acute event overnight per nurse report. Vitals stable. Physical Exam Vital signs: Vital Signs 07/26/18 11:00 07/26/18 11:01 07/26/18 12:00 Temperature 98.4 F Pulse Rate 87 86 90 Respiratory Rate 26 H 27 H 24 Blood Pressure 106/51 L 113/55 L Pulse Oximetry 98 97 97 07/26/18 12:22 07/26/18 13:00 07/26/18 14:00 Temperature Pulse Rate 88 94 H 91 H Respiratory Rate 17 29 H 27 H Blood Pressure 100/52 L 106/51 L Pulse Oximetry 93 L 97 07/26/18 15:00 07/26/18 15:01 07/26/18 16:00 Temperature 98.5 F Pulse Rate 91 H 93 H 84 Respiratory Rate 24 25 H 32 H Blood Pressure 104/49 L 99/55 L Pulse Oximetry 97 97 97 07/26/18 16:54 07/26/18 17:00 07/26/18 18:00 Temperature Pulse Rate 88 98 H 86 Respiratory Rate 22 27 H 35 H Blood Pressure 114/53 L 106/57 L Pulse Oximetry 98 96 07/26/18 19:00 07/26/18 20:00 07/26/18 21:00 Temperature 98.0 F Pulse Rate 82 73 83 Respiratory Rate 24 23 33 H Blood Pressure 103/54 L 104/52 L 117/55 L Pulse Oximetry 98 97 98 07/26/18 21:02 07/26/18 21:06 07/26/18 22:00 Temperature Pulse Rate 78 72 Respiratory Rate 20 26 H Blood Pressure 102/50 L Pulse Oximetry 97 97 07/26/18 23:00 07/26/18 23:30 07/27/18 00:00 Temperature Pulse Rate 75 72 Respiratory Rate 25 H 25 H Blood Pressure 108/61 108/56 L Pulse Oximetry 96 98 98 07/27/18 00:27 07/27/18 00:32 07/27/18 01:00 Temperature Pulse Rate 72 67 Respiratory Rate 14 27 H Blood Pressure 112/55 L Pulse Oximetry 98 98 07/27/18 02:00 07/27/18 03:00 07/27/18 03:25 Temperature Pulse Rate 71 68 Respiratory Rate 21 31 H Blood Pressure 118/58 L 99/56 L Pulse Oximetry 99 96 98 07/27/18 03:27 07/27/18 04:00 07/27/18 05:00 Temperature 97.3 F L Pulse Rate 59 L 66 67 Respiratory Rate 17 37 H 17 Blood Pressure 104/53 L 117/56 L Pulse Oximetry 95 97 07/27/18 06:00 07/27/18 07:00 Temperature Pulse Rate 79 78 Respiratory Rate 25 H 0 L Blood Pressure 131/65 137/65 Pulse Oximetry 98 97 Intake & Output 07/26/18 07/27/18 07/27/18 18:59 06:59 18:59 Intake Total 1200 / 1200 200 / 200 200 / 200 Output Total 650 / 650 935 / 935 Balance 550 / 550 -735 / -735 200 / 200 Weight 121 kg Intake: IV 1200 / 1200 200 / 200 200 / 200 NS Inj 1,000 ML @ 42 mls/hr IV. 1000 / 1000 CONT .[id number] BRETT Rx#:[id number] Azactam Inj 1,000 MG In NS Inj 100 / 100 100 / 100 100 / 100 100 ML @ 200 mls/hr IV.SIG Q8H BRETT Rx#:[id number] Flagyl 500 MG Inj 100 ML @ 100 100 / 100 100 / 100 100 / 100 mls/hr IV.SIG Q8H BRETT Rx#: [id number] Oral 0 / 0 Output: Urine Amount (Stoma) 550 / 550 925 / 925 Continent Urostomy 550 / 550 925 / 925 Chest Tube Drainage 100 / 100 10 / 10 #1 Left 100 / 100 10 / 10 #1 Right 0 / 0 Other: Date of Last Bowel Movement 07/25/18 07/27/18 # Bowel Movements 1 1 Narrative: GENERAL: Patient sitting up in bed. Super morbid obese. Appears comfortable. SKIN: Warm and dry. HEAD: Normocephalic. EYES: No scleral icterus. No injection or drainage. NECK: Plethoric. Unable to do JVD assessment. CARDIOVASCULAR: Regular rate and rhythm without murmurs, gallops, or rubs. Bilateral chest tubes in place RESPIRATORY: Breath sounds equal bilaterally. No accessory muscle use. GASTROINTESTINAL: Abdomen soft, non-tender, nondistended. MUSCULOSKELETAL: No cyanosis, or edema. BACK: Nontender without obvious deformity. No CVA tenderness. Results Labs CBC & Chem 7: 07/27/18 06:24 07/27/18 06:24 Labs: Microbiology 07/24/18 18:20 Fluid - Pleural fluid Gram Stain - Final 07/24/18 18:20 Fluid - Pleural fluid Body Fluid Culture - Final No growth in 72 hours (aerobically and anaerobically ) 07/24/18 09:10 Blood - Peripheral Aerobic Blood Culture - Preliminary No growth in 2 days 07/24/18 09:10 Blood - Peripheral Anaerobic Blood Culture - Preliminary No growth in 2 days 07/24/18 09:20 Blood - Peripheral Aerobic Blood Culture - Preliminary No growth in 2 days 07/24/18 09:20 Blood - Peripheral Anaerobic Blood Culture - Preliminary No growth in 2 days Assessment and Plan Plan 78-year-old man with Alzheimer's Schizoaffective disorder [id number] resolved -Avoid sedatives, continue with neuro check -Continue home medications -Ammonia level, T4, TSH level-WNL Severe respiratory acidosis-resolved COPD Bilateral pleural effusions Acute hypercapnic respiratory failure-resolved Bilateral exudative pleural effusions. Left lower lobe pneumonia -Maintain O2 sat greater than 92 % -Maintain BiPAP at night -Duo nebs and acetylcysteine every 4 hours scheduled dose -Continue to monitor chest 2 output. Management per interventional radiology -Continue budesonide-home medication -Continues on IV steroids, antibiotics for left lower lobe pneumonia. Pulmonology following. Hypertension Hyperlipidemia Chronic atrial fibrillation -Maintain MAP greater than 65 mmHg -Continue ASA 81 mg, and atorvastatin 40 mg at bedtime when clinically appropriate. Renal: Urostomy -- Strict I/Os Super morbid obesity Zofran for nausea Famotidine for GI prophylaxis Protonix started p.o. Lactic acidemia-resolved Leukocytosis Sepsis-resolved -Monitor CBC -Blood urine and sputum culture -Continue with empiric antibiotics aztreonam, vancomycin (hold) and Flagyl- continue will de-escalate upon speciation of cultures Continue current antibiotics. plan to de-escalate tomorrow. GI Prophylaxis Famotidine DVT Prophylaxis -- SCDs Heparin subcu Discharge Planning: Patient will need SNF neurology clearance Palliative care also following Transfer to [facility] Monitor CBC, CMP Continue with PT
--- NOTE | 2018-07-27 13:08 | P.PNPL ---
Subjective Interval history: Patient is lying in bed in NAD. On 2L oxygen. Afebrile. Feeling better today. Physical Exam Vital signs: Vital Signs 07/26/18 14:00 07/26/18 15:00 07/26/18 15:01 Temperature Pulse Rate 91 H 91 H 93 H Respiratory Rate 27 H 24 25 H Blood Pressure 106/51 L 104/49 L Pulse Oximetry 97 97 97 07/26/18 16:00 07/26/18 16:54 07/26/18 17:00 Temperature 98.5 F Pulse Rate 84 88 98 H Respiratory Rate 32 H 22 27 H Blood Pressure 99/55 L 114/53 L Pulse Oximetry 97 98 07/26/18 18:00 07/26/18 19:00 07/26/18 20:00 Temperature 98.0 F Pulse Rate 86 82 73 Respiratory Rate 35 H 24 23 Blood Pressure 106/57 L 103/54 L 104/52 L Pulse Oximetry 96 98 97 07/26/18 21:00 07/26/18 21:02 07/26/18 21:06 Temperature Pulse Rate 83 78 Respiratory Rate 33 H 20 Blood Pressure 117/55 L Pulse Oximetry 98 97 07/26/18 22:00 07/26/18 23:00 07/26/18 23:30 Temperature Pulse Rate 72 75 Respiratory Rate 26 H 25 H Blood Pressure 102/50 L 108/61 Pulse Oximetry 97 96 98 07/27/18 00:00 07/27/18 00:27 07/27/18 00:32 Temperature Pulse Rate 72 72 Respiratory Rate 25 H 14 Blood Pressure 108/56 L Pulse Oximetry 98 98 07/27/18 01:00 07/27/18 02:00 07/27/18 03:00 Temperature Pulse Rate 67 71 68 Respiratory Rate 27 H 21 31 H Blood Pressure 112/55 L 118/58 L 99/56 L Pulse Oximetry 98 99 96 07/27/18 03:25 07/27/18 03:27 07/27/18 04:00 Temperature 97.3 F L Pulse Rate 59 L 66 Respiratory Rate 17 37 H Blood Pressure 104/53 L Pulse Oximetry 98 95 07/27/18 05:00 07/27/18 06:00 07/27/18 07:00 Temperature Pulse Rate 67 79 78 Respiratory Rate 17 25 H 0 L Blood Pressure 117/56 L 131/65 137/65 Pulse Oximetry 97 98 97 07/27/18 08:00 07/27/18 08:30 07/27/18 10:00 Temperature 97.8 F Pulse Rate 76 90 77 Respiratory Rate 12 18 Blood Pressure 116/57 L Pulse Oximetry 97 07/27/18 11:00 07/27/18 12:49 Temperature Pulse Rate 84 76 Respiratory Rate 18 Blood Pressure Pulse Oximetry Intake & Output 07/26/18 07/27/18 07/27/18 18:59 06:59 18:59 Intake Total 1200 / 1200 200 / 200 400 / 400 Output Total 650 / 650 935 / 935 Balance 550 / 550 -735 / -735 400 / 400 Weight 121 kg Intake: IV 1200 / 1200 200 / 200 400 / 400 NS Inj 1,000 ML @ 42 mls/hr IV. 1000 / 1000 CONT .[id number] BRETT Rx#:[id number] Azactam Inj 1,000 MG In NS Inj 100 / 100 100 / 100 200 / 200 100 ML @ 200 mls/hr IV.SIG Q8H BRETT Rx#:[id number] Flagyl 500 MG Inj 100 ML @ 100 100 / 100 100 / 100 200 / 200 mls/hr IV.SIG Q8H BRETT Rx#: [id number] Oral 0 / 0 Output: Urine Amount (Stoma) 550 / 550 925 / 925 Continent Urostomy 550 / 550 925 / 925 Chest Tube Drainage 100 / 100 10 / 10 #1 Left 100 / 100 10 / 10 #1 Right 0 / 0 Other: Date of Last Bowel Movement 07/25/18 07/27/18 07/27/18 # Bowel Movements 1 1 - Constitutional no acute distress - Routine HEENT Exam Head: Present: normocephalic, atraumatic Eye: Present: EOMI, PERRL, normal accommodation, conjunctivae pink ENT: Present: mucous membranes moist - Routine Neck Exam Present: supple, full ROM, trachea midline - Routine Respiratory Exam Present: CTA bilaterally - Routine Cardiovascular Exam Present: RRR, S1, S2 - Routine Abdominal Exam Present: soft, normoactive bowel sounds - Routine Extremities Exam Present: edema, full ROM, pulses intact - Routine Neurological Exam Present: alert, oriented X3, CN II-XII intact Assessment and Plan - Assessment (1) Pleural effusion Code(s): J90 - Pleural effusion, not elsewhere classified Status: Acute - Plan 1. Acute hypoxemic and hypercapnic respiratory failure. 2. Large b/l pleural effusion with compressive atelectasis. s/p CT placement. 3. Morbid obesity. 4. Obstructive sleep apnea. 5. Leukocytosis. 6. COPD. 7. Alzheimer dementia. 8. Hypertension. 9. Hyperlipidemia. 10. Hypothyroidism. 11. GERD Plan Continue with oxygen maintain sats> 90%. Bronchodilators(DuoNeb) Solumederol 40mg IV Q8 BIPAP PRN for resp distress Continue with Singulair 10 mg daily. s/p B/l CT placement by IR exudative effusion by LDH criteria. Monitor CT drainage. CXR 07/26 shows clear right lung, left base consolidation/effusion. IR eval to d/c right CT as it is not draining and is partially out. Abx- vancomycin and aztreonam. Follow up on fluid cx- No growth Strep pneumonia, legionella urinary antigen, Nasal washing screening for influenza all negative GI/DVT prophylaxis. On Pepcid and Heparin SQ respectively. Palliative care is following. Code status: No code DNR.
--- NOTE | 2018-07-27 15:38 | P.PNPAL ---
Reason for Visit Reason for visit: a. To assist with evaluation and management of symptoms including: Dyspnea, anxiety b. To assist medical decision maker(s) with: better understanding of current medical conditions; weighing benefits/burdens of medical treatment options; making medical treatment decisions. Subjective Subjective/Interval History: Pt seen today to follow up on comfort, goals. Has remained stable,uses Bipap at night. per pulmonary : IR eval to d/c right CT as it is not draining and is partially out. Pt continued on Vanco, Aztreonam . Pleural culture neg, BC negative x [address] following, pt again requesting only puree foods, declines mech soft. Good appetite. Seen today in room, upright in bed /chairlike position. Alert, mostly oriented, poor insight to hospitalization. pleasant, denies pain, denies GI complaints. Denies SOB. History : Of note, pt known to palliative service, this provider from 01/2018. He is [facility] resident of [place]. During that admission he was related for UTI, Pneumonia. He was on bipap, though failed bipap and was intubated. During hospital course episodes of a fib slow ventricular response (rate 30s while asleep). He was later medically extubated. He was a&o x 2-3, with very limited insight. He had known hx of dementia, schizoaffective disorder. During palliative interaction with [facility] Taran Hyman at that time: "He indicates that back at the time of his mother and grandmother's illness patient had many conversations with him about never wanting to be on a ventilator, especially now wanting to be prolonged on a ventilator, and never wanting artificial measures such as etc. Gently explore with her off of the alternative to these measures if patient's condition worsen would be comfort measures and possibly hospice. Taran indicates in the past he has spoken with providers about hospice. He indicates generally patient seems to bounce back from his infections and other medical complications but that if he continues to deteriorate or does not improve he would likely invoke hospice to provide him comfort care at the nursing facility that he calls home. He requests the patient be made a DNR based on his known wishes and tells me that if the patient agreed to a breathing tube in the ER he probably thought it was just 1 of the masks and that he did not fully understand it would be a ventilator." Taran ultimately elected to continue medical tx short of CPR to try to get pt back to baseline, and if pt deteriorated or did not improve planned to request hospice. Advance Directives Health Care Surrogate Name and Number: Taran Hyman [phone], Documented care wishes:: standard verbiage details :" No life sustaining treatments if : coma, vegetative , no change of recover, brain damage, completely dependent, confined to bed, vent etc, pain or other severe sx that cannot be relieved, or a condition that will cause to soon even with life sustaining tx". Objective Vital Signs: Vital Signs 07/26/18 16:00 07/26/18 16:54 07/26/18 17:00 Temperature 98.5 F Pulse Rate 84 88 98 H Respiratory Rate 32 H 22 27 H Blood Pressure 99/55 L 114/53 L Pulse Oximetry 97 98 07/26/18 18:00 07/26/18 19:00 07/26/18 20:00 Temperature 98.0 F Pulse Rate 86 82 73 Respiratory Rate 35 H 24 23 Blood Pressure 106/57 L 103/54 L 104/52 L Pulse Oximetry 96 98 97 07/26/18 21:00 07/26/18 21:02 07/26/18 21:06 Temperature Pulse Rate 83 78 Respiratory Rate 33 H 20 Blood Pressure 117/55 L Pulse Oximetry 98 97 07/26/18 22:00 07/26/18 23:00 07/26/18 23:30 Temperature Pulse Rate 72 75 Respiratory Rate 26 H 25 H Blood Pressure 102/50 L 108/61 Pulse Oximetry 97 96 98 07/27/18 00:00 07/27/18 00:27 07/27/18 00:32 Temperature Pulse Rate 72 72 Respiratory Rate 25 H 14 Blood Pressure 108/56 L Pulse Oximetry 98 98 07/27/18 01:00 07/27/18 02:00 07/27/18 03:00 Temperature Pulse Rate 67 71 68 Respiratory Rate 27 H 21 31 H Blood Pressure 112/55 L 118/58 L 99/56 L Pulse Oximetry 98 99 96 07/27/18 03:25 07/27/18 03:27 07/27/18 04:00 Temperature 97.3 F L Pulse Rate 59 L 66 Respiratory Rate 17 37 H Blood Pressure 104/53 L Pulse Oximetry 98 95 07/27/18 05:00 07/27/18 06:00 07/27/18 07:00 Temperature Pulse Rate 67 79 78 Respiratory Rate 17 25 H 0 L Blood Pressure 117/56 L 131/65 137/65 Pulse Oximetry 97 98 97 07/27/18 08:00 07/27/18 08:30 07/27/18 10:00 Temperature 97.8 F Pulse Rate 76 90 77 Respiratory Rate 12 18 Blood Pressure 116/57 L Pulse Oximetry 97 07/27/18 11:00 07/27/18 12:49 Temperature Pulse Rate 84 76 Respiratory Rate 18 Blood Pressure Pulse Oximetry Intake & Output 07/26/18 07/27/18 07/27/18 18:59 06:59 18:59 Intake Total 1200 / 1200 200 / 200 400 / 400 Output Total 650 / 650 935 / 935 Balance 550 / 550 -735 / -735 400 / 400 Weight 121 kg Intake: IV 1200 / 1200 200 / 200 400 / 400 NS Inj 1,000 ML @ 42 mls/hr IV. 1000 / 1000 CONT .[id number] BRETT Rx#:[id number] Azactam Inj 1,000 MG In NS Inj 100 / 100 100 / 100 200 / 200 100 ML @ 200 mls/hr IV.SIG Q8H BRETT Rx#:[id number] Flagyl 500 MG Inj 100 ML @ 100 100 / 100 100 / 100 200 / 200 mls/hr IV.SIG Q8H BRETT Rx#: [id number] Oral 0 / 0 Output: Urine Amount (Stoma) 550 / 550 925 / 925 Continent Urostomy 550 / 550 925 / 925 Chest Tube Drainage 100 / 100 10 / 10 #1 Left 100 / 100 10 / 10 #1 Right 0 / 0 Other: Date of Last Bowel Movement 07/25/18 07/27/18 07/27/18 # Bowel Movements 1 1 Physical Exam: CONSTITUTIONAL/GENERAL: This is an obese, pale elderly male , alert pleasant TUBES/LINES/DRAINS: Peripheral IV upper extremities, urostomy drainage bag SKIN: No jaundice, rashes, or lesions. Skin pale. No wounds seen anteriorly. Skin cool, dry. NECK: Trachea midline. Very large wide neck/jaw. CARDIOVASCULAR: Irregular rate and rhythm. Atrial fib observed on bedside monitor. pedal pulses are faint. RESPIRATORY/CHEST: Symmetric, unlabored respirations , NC O2. Diminished air movement throughout. GASTROINTESTINAL: Abdomen soft, obese, no apparent tenderness, nondistended. No guarding. Bowel sounds present. GENITOURINARY: Without palpable bladder distension. Urostomy drain in place. Draining clear yellow urine. NEUROLOGICAL: alert, partially oriented to hospital self, friend, circumstance. poor insight to illness/hospital course. moves upper extremities well, LE weak. PSYCHIATRIC: No obvious anxiety/depression. no apparent hallucinations or other psychotic thought process. Diagnostic Tests Laboratory: Laboratory Results - last 72 hr 07/24/18 07/24/18 07/24/18 17:10 18:20 18:20 WBC RBC Hgb Hct MCV MCH MCHC RDW Plt Count MPV Neut % (Auto) Lymph % (Auto) [place] % (Auto) Eos % (Auto) Baso % (Auto) Neut # (Auto) Lymph # (Auto) [place] # (Auto) Eos # (Auto) Baso # (Auto) WBC Differential Differential Comment Sodium Potassium Chloride Carbon Dioxide Anion Gap BUN Creatinine Estimated GFR POC Glucose Random Glucose Lactic Acid Calcium Phosphorus Magnesium Total Bilirubin Direct Bilirubin Indirect Bilirubin AST ALT Alkaline Phosphatase Total Protein Albumin Pleural pH 8.5 Pleural RBC 89024 H Pleural Nuc Cells 525 H Pleural Neutrophils 15 Pleural Lymphocytes 66 Pleural Monocytes 7 Pleural Mesothelial 9 Pleural Other Cells 3 Pleural Total Protein 2.4 Pleural LDH 867 Pleural Glucose 152 Pleural Amylase 37 Nasal Screen MRSA (PCR) Mrsa detected Vancomycin Trough Random Vancomycin 07/24/18 07/24/18 07/24/18 18:35 19:03 23:55 WBC RBC Hgb Hct MCV MCH MCHC RDW Plt Count MPV Neut % (Auto) Lymph % (Auto) [place] % (Auto) Eos % (Auto) Baso % (Auto) Neut # (Auto) Lymph # (Auto) [place] # (Auto) Eos # (Auto) Baso # (Auto) WBC Differential Differential Comment Sodium Potassium Chloride Carbon Dioxide Anion Gap BUN Creatinine Estimated GFR POC Glucose 160 H 131 H Random Glucose Lactic Acid 2.1 H Calcium Phosphorus Magnesium Total Bilirubin Direct Bilirubin Indirect Bilirubin AST ALT Alkaline Phosphatase Total Protein Albumin Pleural pH Pleural RBC Pleural Nuc Cells Pleural Neutrophils Pleural Lymphocytes Pleural Monocytes Pleural Mesothelial Pleural Other Cells Pleural Total Protein Pleural LDH Pleural Glucose Pleural Amylase Nasal Screen MRSA (PCR) Vancomycin Trough Random Vancomycin 07/24/18 07/25/18 07/25/18 23:58 02:00 04:00 WBC 14.2 H RBC 3.53 L Hgb 10.6 L Hct 33.1 L MCV 93.8 MCH 30.0 MCHC 32.0 RDW 15.3 Plt Count 188 D MPV 8.6 Neut % (Auto) 91.4 H Lymph % (Auto) 3.9 L [place] % (Auto) 4.3 Eos % (Auto) 0.0 Baso % (Auto) 0.4 Neut # (Auto) 13.0 H Lymph # (Auto) 0.6 L [place] # (Auto) 0.6 Eos # (Auto) 0.0 Baso # (Auto) 0.1 WBC Differential . Differential Comment Auto diff final Sodium 138 Potassium 5.5 H Chloride 97 L Carbon Dioxide 36.5 H Anion Gap 5 BUN 22 H Creatinine 0.93 Estimated GFR 79 L POC Glucose 116 H Random Glucose 115 H D Lactic Acid Calcium 8.3 L Phosphorus 3.7 Magnesium 2.5 Total Bilirubin 0.3 Direct Bilirubin Indirect Bilirubin AST 15 ALT 24 Alkaline Phosphatase 76 Total Protein 6.5 D Albumin 2.8 L Pleural pH Pleural RBC Pleural Nuc Cells Pleural Neutrophils Pleural Lymphocytes Pleural Monocytes Pleural Mesothelial Pleural Other Cells Pleural Total Protein Pleural LDH Pleural Glucose Pleural Amylase Nasal Screen MRSA (PCR) Vancomycin Trough Random Vancomycin 07/25/18 07/25/18 07/25/18 04:00 11:54 17:59 WBC RBC Hgb Hct MCV MCH MCHC RDW Plt Count MPV Neut % (Auto) Lymph % (Auto) [place] % (Auto) Eos % (Auto) Baso % (Auto) Neut # (Auto) Lymph # (Auto) [place] # (Auto) Eos # (Auto) Baso # (Auto) WBC Differential Differential Comment Sodium Potassium Chloride Carbon Dioxide Anion Gap BUN Creatinine Estimated GFR POC Glucose 85 114 H Random Glucose Lactic Acid 1.3 Calcium Phosphorus Magnesium Total Bilirubin Direct Bilirubin Indirect Bilirubin AST ALT Alkaline Phosphatase Total Protein Albumin Pleural pH Pleural RBC Pleural Nuc Cells Pleural Neutrophils Pleural Lymphocytes Pleural Monocytes Pleural Mesothelial Pleural Other Cells Pleural Total Protein Pleural LDH Pleural Glucose Pleural Amylase Nasal Screen MRSA (PCR) Vancomycin Trough Random Vancomycin 07/25/18 07/26/18 07/26/18 23:22 02:45 05:29 WBC RBC Hgb Hct MCV MCH MCHC RDW Plt Count MPV Neut % (Auto) Lymph % (Auto) [place] % (Auto) Eos % (Auto) Baso % (Auto) Neut # (Auto) Lymph # (Auto) [place] # (Auto) Eos # (Auto) Baso # (Auto) WBC Differential Differential Comment Sodium Potassium Chloride Carbon Dioxide Anion Gap BUN Creatinine Estimated GFR POC Glucose 170 H 127 H Random Glucose Lactic Acid Calcium Phosphorus Magnesium Total Bilirubin Direct Bilirubin Indirect Bilirubin AST ALT Alkaline Phosphatase Total Protein Albumin Pleural pH Pleural RBC Pleural Nuc Cells Pleural Neutrophils Pleural Lymphocytes Pleural Monocytes Pleural Mesothelial Pleural Other Cells Pleural Total Protein Pleural LDH Pleural Glucose Pleural Amylase Nasal Screen MRSA (PCR) Vancomycin Trough 22.2 H Random Vancomycin 07/26/18 07/26/18 07/26/18 11:17 14:56 16:09 WBC 11.6 H RBC 3.61 L Hgb 11.0 L Hct 33.6 L MCV 93.1 MCH 30.3 MCHC 32.6 RDW 15.3 Plt Count 189 MPV 8.7 Neut % (Auto) 88.5 H Lymph % (Auto) 4.5 L [place] % (Auto) 6.8 Eos % (Auto) 0.0 Baso % (Auto) 0.2 Neut # (Auto) 10.2 H Lymph # (Auto) 0.5 L [place] # (Auto) 0.8 Eos # (Auto) 0.0 Baso # (Auto) 0.0 WBC Differential . Differential Comment Auto diff final Sodium 138 Potassium 4.3 D Chloride 105 D Carbon Dioxide 26.2 D Anion Gap 7 BUN 27 H Creatinine 0.89 Estimated GFR 83 L POC Glucose 160 H Random Glucose 147 H Lactic Acid Calcium 8.3 L Phosphorus Magnesium Total Bilirubin Direct Bilirubin Indirect Bilirubin AST ALT Alkaline Phosphatase Total Protein Albumin Pleural pH Pleural RBC Pleural Nuc Cells Pleural Neutrophils Pleural Lymphocytes Pleural Monocytes Pleural Mesothelial Pleural Other Cells Pleural Total Protein Pleural LDH Pleural Glucose Pleural Amylase Nasal Screen MRSA (PCR) Vancomycin Trough Random Vancomycin 07/26/18 07/27/18 07/27/18 18:55 00:49 05:16 WBC RBC Hgb Hct MCV MCH MCHC RDW Plt Count MPV Neut % (Auto) Lymph % (Auto) [place] % (Auto) Eos % (Auto) Baso % (Auto) Neut # (Auto) Lymph # (Auto) [place] # (Auto) Eos # (Auto) Baso # (Auto) WBC Differential Differential Comment Sodium Potassium Chloride Carbon Dioxide Anion Gap BUN Creatinine Estimated GFR POC Glucose 164 H 203 H 161 H Random Glucose Lactic Acid Calcium Phosphorus Magnesium Total Bilirubin Direct Bilirubin Indirect Bilirubin AST ALT Alkaline Phosphatase Total Protein Albumin Pleural pH Pleural RBC Pleural Nuc Cells Pleural Neutrophils Pleural Lymphocytes Pleural Monocytes Pleural Mesothelial Pleural Other Cells Pleural Total Protein Pleural LDH Pleural Glucose Pleural Amylase Nasal Screen MRSA (PCR) Vancomycin Trough Random Vancomycin 07/27/18 07/27/18 06:24 06:24 WBC 11.1 H RBC 3.81 L Hgb 11.6 L Hct 35.9 L MCV 94.2 MCH 30.4 MCHC 32.3 RDW 15.9 Plt Count 182 MPV 8.8 Neut % (Auto) 89.5 H Lymph % (Auto) 5.7 L [place] % (Auto) 4.5 Eos % (Auto) 0.0 Baso % (Auto) 0.3 Neut # (Auto) 9.9 H Lymph # (Auto) 0.6 L [place] # (Auto) 0.5 Eos # (Auto) 0.0 Baso # (Auto) 0.0 WBC Differential . Differential Comment Auto diff final Sodium 139 Potassium 4.2 Chloride 106 Carbon Dioxide 28.6 Anion Gap 4 L BUN 28 H Creatinine 0.88 Estimated GFR 84 L POC Glucose Random Glucose 133 H Lactic Acid Calcium 8.4 L Phosphorus 2.7 Magnesium 2.6 H Total Bilirubin 0.2 Direct Bilirubin 0.1 Indirect Bilirubin 0.1 AST 15 ALT 23 Alkaline Phosphatase 61 Total Protein 6.2 L Albumin 2.8 L Pleural pH Pleural RBC Pleural Nuc Cells Pleural Neutrophils Pleural Lymphocytes Pleural Monocytes Pleural Mesothelial Pleural Other Cells Pleural Total Protein Pleural LDH Pleural Glucose Pleural Amylase Nasal Screen MRSA (PCR) Vancomycin Trough Random Vancomycin 15.7 Result Diagrams: 07/27/18 06:24 07/27/18 06:24 Microbiology: Microbiology 07/24/18 09:10 Aerobic Blood Culture - Preliminary Blood - Peripheral No growth in 3 days Anaerobic Blood Culture - Preliminary No growth in 3 days 07/24/18 09:20 Aerobic Blood Culture - Preliminary Blood - Peripheral No growth in 3 days Anaerobic Blood Culture - Preliminary No growth in 3 days 07/24/18 18:20 Gram Stain - Final Fluid - Pleural fluid Body Fluid Culture - Final No growth in 72 hours (aerobically and anaerobically) 07/24/18 13:05 Urine Culture - Final Clean Catch Urine 50-100,000 cfu/mL mixed eva (probable contaminants) 07/24/18 18:20 Fungal Smear - Final Other No fungal elements seen 07/24/18 13:05 Legionella Antigen - Final Urine - Clean Catch Urine Presumptive negative for Legionella pneumophila serogroup 1 antigen in urine, suggesting no recent or recurrent infection. Infection due to Legionella cannot be ruled out since other serogroups and species may cause disease, antigen may not be present in urine in early infection, and the level of antigen present in the urine may be below the detection limit of the test. 07/24/18 13:05 Streptococcus pneumoniae Antigen (M - Final Urine - Clean Catch Urine Presumptive negative for streptococcus pneumoniae antigen, suggesting no current or recent infection. Infection due to Streptococcus pneumoniae cannot be ruled out since the antigen present in the sample may be below the detection limit of the test. 07/24/18 10:15 Influenza Types A,B Antigen - Final Nasal Wash Negative for FLU A and B antigen Infection due to influenza A or B cannot be ruled out since the antigen present in the sample may be below the detection limit of the test. Imaging: Impressions Chest X-Ray 07/26/18 04:00 CONCLUSION: No significant change Procedures: 07/24/[address] Assessment and Plan - Disease Oriented Problem List (1) Hypercapnic respiratory failure (2) Hypertension (3) Hypothyroid (4) Schizoaffective disorder (5) Dementia (6) History of CVA with residual deficit (7) Bladder cancer (8) History of urostomy (9) Pleural effusion (10) Atrial fibrillation (11) Altered mental status (12) COPD (chronic obstructive pulmonary disease) (13) Hyperlipidemia Pertinent Non-Medical Issues: Psychosocial: Patient originally from [place] though moved to [place] many years ago when his family did. 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 He has never has no children. All of his family is , he is supported by Mr jose rafael friend of many years Spiritual: Episcopal mervin prev admissions declines car oiler visit indicates well supported by spiritual leader at his SNF Legal: Patient has previously been alert and oriented ;however he appeared to have had limited insight. He also has some underlying dementia based on available records as well as friends report, as well as history of schizoaffective disorder. Currently unable to participate due to critical clinical condition. Has HCS designation from [place] 2010 naming Taran Hyman, and additional HCS dated 01/2018 naming same. He has previously been able to participate some in decision making though major decision should be made by his designated surrogate as his insight appears limited and given his fluctuations he may not have good recall of benefit/burden/decisions made. Ethical issues impacting care: No ethical issues identified. Important Contacts: Taran Hyman [facility]- [phone], [facility] [phone] Prognosis: This patient was admitted for altered mental status, and shortness of breath. Findings of complete white out right chest. Will require chest tubes. CTA negative for PE. He has multiple chronic medical conditions, and baseline is debilitated/ bedbound; does remain at risk for ongoing complications and setbacks. Code Status: No Code DNR Plan: * LEGAL Patient has previously been alert and oriented ;however he appeared to have had limited insight. He also has some underlying dementia based on available records as well as friends report, as well as history of schizoaffective disorder. Currently unable to participate due to critical clinical condition. Has HCS designation from [place] 2010 naming Taran Hyman, and additional HCS dated 01/2018 naming aramis. He has previously been able to participate some in decision making though major decision should be made by his designated surrogate as his insight appears limited and given his fluctuations he may not have good recall of benefit/burden/decisions made. * Goals: Goals aggressive short of resuscitation. Patient has long endorsed not wanting any types of breathing tubes or resuscitation per healthcare surrogate. Healthcare surrogate hopeful he can get back to most recent baseline and return to nursing facility. * CODE STATUS: DNR SYMPTOMS: --Dyspnea--admitted for AMS/ acute shortness of breath. Long history of COPD , CPAP, DEE. 01/2018. admission : Intubated for a short course, extubated after 24 hours Uses BiPAP at night. Bilateral chest tubes placed 07/24. CXR yesterday with some improvement, CXR 07/[address] may be partially out of place- - per pulmonary IR to be consulted RE -- pain- no signs/sx pain- denies pain .We will continue to evaluate. -- anxiety- potential for r/t hx dementia/confusion and schizoaffective disorder, BiPAP. currently relatively calm/comfortable, initially with altered mental status, lethargy upon ER presentation. Now alert partially oriented, no anxiety, We will continue to evaluate Palliative care will continue to follow during hospital course as condition evolves, to assist patient/decision-maker with understanding of medical conditions, weighing benefits/burdens of treatment options, for clarification of goals of treatment. Additionally will assist with any symptoms of palliative concern Attestation Attestation: To help prompt me to consider important information that might be impacting today's encounter and assessment, information from prior notes written by myself or my colleagues may have been "brought forward" into today's note. My signature on this note, however, is an attestation that I personally performed the exam, history, and/or decision-making noted today, and, unless otherwise indicated, the interactions with patient, family, and staff as well as the review of records all occurred today. I also attest that the listed assessment and stated plan reflect my best clinical judgment today based on the combination of historical information, prior notes, and today's exam/ interactions. When time spent is documented, it refers only to time spent today by the signer, or if indicated, combined time spent today by collaborating physician/nurse practitioner.
--- NOTE | 2018-07-27 16:38 | IR ---
EXAM DATE: 07/27/2018 3:52 PM EST AGE/SEX: 78 years / Male INDICATIONS: No pneumothorax or residual fluid on chest x-ray. Output is 0. COMPARISON: No prior exams available for comparison. DEVICE(S): PROCEDURE: 1. Chest tube removal. Using aseptic technique the previously placed chest tube was easily removed in one piece and Vaseline gauze and sterile dressing was applied. Chest radiograph is to be obtained. CONCLUSION: 1. Uncomplicated right chest tube removal. Electronically signed by: Bryan Hernandez MD Board Certified Radiologist 07/27/2018 4:37 PM EST
[2018-07-27] MEDS: Vancomycin Inj 1,500 MG in Sodium Chlor 0.9% Inj 500 ML IV.SIG SCH (16:48)
[2018-07-27] MEDS: Sod Chloride 0.9% Inj 1,000 ML IV.CONT SCH (16:48)
[2018-07-27] MEDS: Montelukast 10 MG Tablet PO SCH (21:44)
[2018-07-28] MEDS: Heparin - SQ 10,000 UNITS/ML Vial SQ SCH ×2 (01:28→12:31)
[2018-07-28] MEDS: Chlorhexidine Gluconate 2% 1 Pack (2 Cloths) TOPICAL SCH (04:17)
[2018-07-28] MEDS: Vancomycin Inj 1,500 MG in Sodium Chlor 0.9% Inj 500 ML IV.SIG SCH ×2 (05:41→23:20)
[2018-07-28] MEDS: MethylPREDNISolone Sod Succinate Inj 40 MG/ML Vial IV.PUSH SCH ×2 (05:42→20:08)
[2018-07-28] MEDS: Insulin NovoLOG Aspart Correctional Sugar Inj SQ SCH ×4 (05:42→23:19)
[2018-07-28] MEDS: Levothyroxine 50 MCG Tablet PO SCH (05:42)
[2018-07-28 08:06] LABS: Baso % (Auto) 0.1 % (0.0-2.0); Hematocrit 35.2 % (39.0-51.0); Hemoglobin 11.5 gm/dL (13.0-17.0); Lymph # (Auto) 0.6 th/mm3 (1.0-4.8); Lymph % (Auto) 4.8 % (9.0-44.0); Mean Corpuscular HGB Conc 32.7 % (32.0-36.0); Mean Corpuscular Hemoglobin 30.3 pg (27.0-34.0); Mean Corpuscular Volume 92.6 fL (80.0-100.0); Mean Platelet Volume 8.7 fL (7.0-11.0); Mono # (Auto) 0.6 th/mm3 (0.0-0.9); Mono % (Auto) 4.9 % (0.0-8.0); Neut # (Auto) 10.7 th/mm3 (1.8-7.7); Neut % (Auto) 90.2 % (16.0-70.0); Platelet Count 180 th/mm3 (150-450); Red Cell Distribution Width 15.9 % (11.6-17.2); White Blood Count 11.9 th/mm3 (4.0-11.0)
[2018-07-28 08:25] LABS: Albumin 2.6 g/dL (3.4-5.0); Anion Gap 7 meq/L (5-15); Aspartate Aminotransferase 17 U/L (15-37); Blood Urea Nitrogen 27 mg/dL (7-18); Calcium 8.2 mg/dL (8.5-10.1); Carbon Dioxide 25.7 meq/L (21.0-32.0); Chloride 109 meq/L (98-107); Glomerular Filtration Rate 83 mL/min (>89); Glucose,Random 142 mg/dL (74-106); Potassium 3.7 meq/L (3.5-5.1); Sodium 142 meq/L (136-145)
[2018-07-28 08:29] LABS: Alanine Aminotransferase 24 U/L (12-78); Alkaline Phosphatase 56 U/L (45-117); Total Protein 5.9 g/dL (6.4-8.2)
[2018-07-28] MEDS: Famotidine PF Inj 20 MG/2 ML Vial IV.PUSH SCH ×2 (08:51→20:08)
[2018-07-28] MEDS: Ferrous Sulfate 325 MG Tablet PO SCH ×3 (08:51→18:01)
[2018-07-28] MEDS: Senna/Docusate Sodium 8.6/50 MG Tablet PO SCH ×2 (08:51→20:08)
[2018-07-28] MEDS: QUEtiapine 25 MG Tablet PO SCH ×2 (08:51→20:07)
[2018-07-28] MEDS: Lisinopril 10 MG Tablet PO SCH (08:51)
--- NOTE | 2018-07-28 10:55 | P.PNIM ---
Subjective Interval history: patient reports improvement in his breathing. Physical Exam Vital signs: Vital Signs 07/27/18 11:00 07/27/18 12:00 07/27/18 12:49 Temperature 98.2 F Pulse Rate 78 76 76 Respiratory Rate 18 12 Blood Pressure 113/53 L 116/57 L Pulse Oximetry 98 97 07/27/18 13:00 07/27/18 13:01 07/27/18 14:00 Temperature Pulse Rate 108 H 89 84 Respiratory Rate Blood Pressure 93/45 L 85/50 L Pulse Oximetry 97 96 97 07/27/18 15:00 07/27/18 16:00 07/27/18 16:34 Temperature 98.5 F Pulse Rate 80 80 80 Respiratory Rate 23 27 H Blood Pressure 107/53 L 96/62 L Pulse Oximetry 97 97 07/27/18 17:00 07/27/18 18:00 07/27/18 19:00 Temperature Pulse Rate 79 79 88 Respiratory Rate 21 22 24 Blood Pressure 90/54 L 129/60 Pulse Oximetry 97 98 97 07/27/18 19:01 07/27/18 20:00 07/27/18 20:26 Temperature 97.9 F Pulse Rate 88 79 85 Respiratory Rate 21 18 19 Blood Pressure 98/51 L 104/54 L Pulse Oximetry 96 97 98 07/27/18 21:00 07/27/18 21:49 07/28/18 00:12 Temperature 98.3 F Pulse Rate 78 69 Respiratory Rate 30 H 19 Blood Pressure 112/54 L 115/57 L Pulse Oximetry 96 97 98 07/28/18 01:21 07/28/18 03:04 07/28/18 03:57 Temperature 98 F Pulse Rate 78 68 Respiratory Rate 16 16 Blood Pressure 116/73 Pulse Oximetry 98 99 07/28/18 08:00 07/28/18 08:56 Temperature 98.0 F Pulse Rate 85 76 Respiratory Rate 17 18 Blood Pressure 130/61 Pulse Oximetry 98 Intake & Output 07/27/18 07/28/18 07/28/18 18:59 06:59 18:59 Intake Total 1400 / 1400 915 / 915 515 / 515 Output Total 750 / 750 50 / 50 Balance 650 / 650 865 / 865 515 / 515 Weight 121.6 kg Intake: IV 1400 / 1400 915 / 915 515 / 515 NS Inj 1,000 ML @ 42 mls/hr IV. 1000 / 1000 CONT .[id number] [facility] Rx#:[id number] Azactam Inj 1,000 MG In NS Inj 200 / 200 200 / 200 100 ML @ 200 mls/hr IV.SIG Q8H [facility] Rx#:[id number] Vancomycin Inj 1,500 MG In NS 515 / 515 515 / 515 Inj 500 ML @ 250 mls/hr IV.SIG Q18H [facility] Rx#:[id number] Flagyl 500 MG Inj 100 ML @ 100 200 / 200 200 / 200 mls/hr IV.SIG Q8H [facility] Rx#: [id number] Output: Urine Amount (Stoma) 750 / 750 Continent Urostomy 750 / 750 Chest Tube Drainage 0 / 0 50 / 50 #1 Left 0 / 0 50 / 50 Other: Date of Last Bowel Movement 07/27/18 07/27/18 # Bowel Movements 1 Narrative: GENERAL:obese elderly man,laying in bed, not in distress. HEENT:not pale,anicteric,nasal canula in situ. NECK:obese,unable to assess JVD. CARDIOVASCULAR: Regular rate and rhythm without murmurs, gallops, or rubs. CHEST:Lt chest tube noted.CTAB,no wheezes or rales. GASTROINTESTINAL: Abdomen soft, non-tender, nondistended. Normal active bowel sounds MUSCULOSKELETAL: Extremities without clubbing, cyanosis, or edema. NEURO: Alert & Oriented x4 to person, place, time, situation. Moves all ext x4 Results Labs CBC & Chem 7: 07/28/18 07:36 07/28/18 07:36 Labs: Microbiology 07/24/18 09:10 Blood - Peripheral Aerobic Blood Culture - Preliminary No growth in 3 days 07/24/18 09:10 Blood - Peripheral Anaerobic Blood Culture - Preliminary No growth in 3 days 07/24/18 09:20 Blood - Peripheral Aerobic Blood Culture - Preliminary No growth in 3 days 07/24/18 09:20 Blood - Peripheral Anaerobic Blood Culture - Preliminary No growth in 3 days 07/24/18 18:20 Fluid - Pleural fluid Gram Stain - Final 07/24/18 18:20 Fluid - Pleural fluid Body Fluid Culture - Final No growth in 72 hours (aerobically and anaerobically ) Imaging Imaging: Impressions Tunnelled Chest Tube Removal 07/27/18 15:45 CONCLUSION: 1. Uncomplicated right chest tube removal. Assessment and Plan Plan 78 yo M who was admitted in a semiconscious state, found to have bilateral pleural effusions, and was in acute hypoxemic, hypercapneic respiratory failure. He was initially admitted to ICU where he was on BIPAP.Chest tubes were inserted by IR. Clinically improved, transferred to [facility] on 07/27. Acute problems: 1.Acute hypoxemic and hypercapneic respiratory failure/COPD exacerbation/ Pleural effusions/LLL pneumonia-improved. Strep pneumonia, legionella urinary antigen, Nasal washing screening for influenza all negative. blood cultures negative. Rt chest tube was removed on 07/27. Lt chest tube present. BIPAP prn resp distress continue bronchodilators,Solumedrol-reduced to q12h, antibiotics(Vanc/Aztreonam) , Oxygen by co keep sats >90% 2. Metabolic encephalopathy-resolved. 3.Sepsis-resolved. on antibiotics as above for pneumonia. Chronic stable problems: #HTN-BP within acceptable limits, continue home medication. #Chronic atrial fib-rate controlled. #Hypothyroidism-on synthroid #Hyperlipidemia-cont statin #Super morbid obesity #Schizoaffective disorder-cont home medication. #Alzheimer's Dementia-on Donepezil. DVT ppx.
--- NOTE | 2018-07-28 12:09 | P.PNPL ---
Subjective Interval history: Patient is on 3L oxygen lying in bed in NAD. Afebrile. Physical Exam Vital signs: Vital Signs 07/27/18 12:49 07/27/18 13:00 07/27/18 13:01 Temperature Pulse Rate 76 108 H 89 Respiratory Rate Blood Pressure 93/45 L Pulse Oximetry 97 96 07/27/18 14:00 07/27/18 15:00 07/27/18 16:00 Temperature 98.5 F Pulse Rate 84 80 80 Respiratory Rate 23 27 H Blood Pressure 85/50 L 107/53 L 96/62 L Pulse Oximetry 97 97 97 07/27/18 16:34 07/27/18 17:00 07/27/18 18:00 Temperature Pulse Rate 80 79 79 Respiratory Rate 21 22 Blood Pressure 90/54 L 129/60 Pulse Oximetry 97 98 07/27/18 19:00 07/27/18 19:01 07/27/18 20:00 Temperature 97.9 F Pulse Rate 88 88 79 Respiratory Rate 24 21 18 Blood Pressure 98/51 L 104/54 L Pulse Oximetry 97 96 97 07/27/18 20:26 07/27/18 21:00 07/27/18 21:49 Temperature 98.3 F Pulse Rate 85 78 69 Respiratory Rate 19 30 H 19 Blood Pressure 112/54 L 115/57 L Pulse Oximetry 98 96 97 07/28/18 00:12 07/28/18 01:21 07/28/18 03:04 Temperature Pulse Rate 78 Respiratory Rate 16 Blood Pressure Pulse Oximetry 98 98 07/28/18 03:57 07/28/18 08:00 07/28/18 08:56 Temperature 98 F 98.0 F Pulse Rate 68 85 76 Respiratory Rate 16 17 18 Blood Pressure 116/73 130/61 Pulse Oximetry 99 98 07/28/18 11:56 Temperature Pulse Rate 80 Respiratory Rate 18 Blood Pressure Pulse Oximetry Intake & Output 07/27/18 07/28/18 07/28/18 18:59 06:59 18:59 Intake Total 1400 / 1400 915 / 915 515 / 515 Output Total 750 / 750 50 / 50 Balance 650 / 650 865 / 865 515 / 515 Weight 121.6 kg Intake: IV 1400 / 1400 915 / 915 515 / 515 NS Inj 1,000 ML @ 42 mls/hr IV. 1000 / 1000 CONT .[id number] [facility] Rx#:[id number] Azactam Inj 1,000 MG In NS Inj 200 / 200 200 / 200 100 ML @ 200 mls/hr IV.SIG Q8H [facility] Rx#:[id number] Vancomycin Inj 1,500 MG In NS 515 / 515 515 / 515 Inj 500 ML @ 250 mls/hr IV.SIG Q18H [facility] Rx#:[id number] Flagyl 500 MG Inj 100 ML @ 100 200 / 200 200 / 200 mls/hr IV.SIG Q8H [facility] Rx#: [id number] Output: Urine Amount (Stoma) 750 / 750 Continent Urostomy 750 / 750 Chest Tube Drainage 0 / 0 50 / 50 #1 Left 0 / 0 50 / 50 Other: Date of Last Bowel Movement 07/27/18 07/27/18 # Bowel Movements 1 - Constitutional no acute distress, morbidly obese - Routine HEENT Exam Head: Present: normocephalic, atraumatic Eye: Present: EOMI, PERRL, normal accommodation, scleral injection, conjunctivae pink - Routine Neck Exam Present: supple, full ROM, trachea midline - Routine Respiratory Exam Present: CTA bilaterally - Routine Cardiovascular Exam Present: RRR, S1, S2 - Routine Abdominal Exam Present: soft - Routine Extremities Exam Present: edema, pulses intact - Routine Neurological Exam Present: alert, oriented X3, CN II-XII intact Assessment and Plan - Assessment (1) Pleural effusion Code(s): J90 - Pleural effusion, not elsewhere classified Status: Acute - Plan 1. Acute hypoxemic and hypercapnic respiratory failure. 2. Large b/l pleural effusion with compressive atelectasis. s/p CT placement. 3. Morbid obesity. 4. Obstructive sleep apnea. 5. Leukocytosis. 6. COPD. 7. Alzheimer dementia. 8. Hypertension. 9. Hyperlipidemia. 10. Hypothyroidism. 11. GERD Plan Continue with oxygen maintain sats> 90%. Bronchodilators(DuoNeb) Decrease Solumederol 40mg IV Q12 BIPAP PRN for resp distress Continue with Singulair 10 mg daily. s/p B/l CT placement by IR exudative effusion by LDH criteria. Monitor CT drainage. CXR 07/26 shows clear right lung, left base consolidation/effusion. Monitor Left CT drainage, right CT removed 07/27 Abx- vancomycin and aztreonam. Follow up on fluid cx- No growth Strep pneumonia, legionella urinary antigen, Nasal washing screening for influenza all negative GI/DVT prophylaxis. On Pepcid and Heparin SQ respectively. Palliative care is following. Code status: No code DNR. Continue treatment plan.
[2018-07-28] MEDS: Sod Chloride 0.9% Inj 1,000 ML IV.CONT SCH (18:00)
[2018-07-28] MEDS: Montelukast 10 MG Tablet PO SCH (20:07)
[2018-07-29] MEDS: Heparin - SQ 10,000 UNITS/ML Vial SQ SCH ×2 (02:32→12:17)
[2018-07-29] MEDS: Chlorhexidine Gluconate 2% 1 Pack (2 Cloths) TOPICAL SCH (04:33)
[2018-07-29] MEDS: Levothyroxine 50 MCG Tablet PO SCH (05:42)
[2018-07-29] MEDS: Insulin NovoLOG Aspart Correctional Sugar Inj SQ SCH ×4 (06:07→23:39)
[2018-07-29] MEDS: QUEtiapine 25 MG Tablet PO SCH ×2 (09:13→20:06)
[2018-07-29] MEDS: Famotidine PF Inj 20 MG/2 ML Vial IV.PUSH SCH ×2 (09:13→20:07)
[2018-07-29] MEDS: MethylPREDNISolone Sod Succinate Inj 40 MG/ML Vial IV.PUSH SCH ×2 (09:13→20:07)
[2018-07-29] MEDS: Lisinopril 10 MG Tablet PO SCH (09:14)
[2018-07-29] MEDS: Ferrous Sulfate 325 MG Tablet PO SCH ×3 (09:14→17:16)
[2018-07-29] MEDS: Senna/Docusate Sodium 8.6/50 MG Tablet PO SCH ×2 (09:14→20:07)
[2018-07-29 09:29] LABS: Baso % (Auto) 0.1 % (0.0-2.0); Hematocrit 36.9 % (39.0-51.0); Lymph % (Auto) 7.2 % (9.0-44.0); Mean Corpuscular HGB Conc 32.5 % (32.0-36.0); Mean Corpuscular Hemoglobin 29.9 pg (27.0-34.0); Mean Corpuscular Volume 92.1 fL (80.0-100.0); Mean Platelet Volume 9.2 fL (7.0-11.0); Mono % (Auto) 7.5 % (0.0-8.0); Neut # (Auto) 11.6 th/mm3 (1.8-7.7); Neut % (Auto) 85.2 % (16.0-70.0); Platelet Count 179 th/mm3 (150-450); Red Blood Count 4.01 mil/mm3 (4.50-5.90); Red Cell Distribution Width 16.1 % (11.6-17.2); White Blood Count 13.7 th/mm3 (4.0-11.0)
--- NOTE | 2018-07-29 11:23 | P.PNIM ---
Subjective Interval history: feeling well. no shortness of breath. Physical Exam Vital signs: Vital Signs 07/28/18 11:56 07/28/18 12:00 07/28/18 16:00 Temperature 98 F 98.6 F Pulse Rate 80 86 77 Respiratory Rate 18 18 17 Blood Pressure 100/60 105/55 L Pulse Oximetry 97 97 07/28/18 20:00 07/28/18 22:00 07/28/18 22:08 Temperature 98.4 F Pulse Rate 84 57 L Respiratory Rate 22 16 Blood Pressure 103/53 L Pulse Oximetry 96 96 98 07/29/18 00:00 07/29/18 04:24 07/29/18 08:00 Temperature 98.3 F 98.6 F Pulse Rate 70 73 Respiratory Rate 20 18 Blood Pressure 108/56 L 121/56 L Pulse Oximetry 97 96 99 Intake & Output 07/28/18 07/29/18 07/29/18 18:59 06:59 18:59 Intake Total 1615 / 1615 915 / 915 Output Total 800 / 800 Balance 1615 / 1615 115 / 115 Weight 122.1 kg Intake: IV 1615 / 1615 915 / 915 NS Inj 1,000 ML @ 42 mls/hr IV. 900 / 900 CONT .[id number] [facility] Rx#:[id number] Azactam Inj 1,000 MG In NS Inj 100 / 100 200 / 200 100 ML @ 200 mls/hr IV.SIG Q8H [facility] Rx#:[id number] Vancomycin Inj 1,500 MG In NS 515 / 515 515 / 515 Inj 500 ML @ 250 mls/hr IV.SIG Q18H [facility] Rx#:[id number] Flagyl 500 MG Inj 100 ML @ 100 100 / 100 200 / 200 mls/hr IV.SIG Q8H [facility] Rx#: [id number] Output: Urine Amount (Stoma) 800 / 800 Continent Urostomy 800 / 800 Chest Tube Drainage 0 / 0 #1 Left 0 / 0 Other: Date of Last Bowel Movement 07/28/18 07/28/18 Narrative: GENERAL:obese elderly man,laying in bed, not in distress. HEENT:not pale,anicteric,nasal canula in situ. NECK:obese,unable to assess JVD. CARDIOVASCULAR: Regular rate and rhythm without murmurs, gallops, or rubs. CHEST:Lt chest tube noted.CTAB,no wheezes or rales. GASTROINTESTINAL: Abdomen soft, non-tender, nondistended. Normal active bowel sounds MUSCULOSKELETAL: Extremities without clubbing, cyanosis, or edema. NEURO: Alert & Oriented x4 to person, place, time, situation. Moves all ext x4 Results Labs CBC & Chem 7: 07/29/18 06:31 07/28/18 07:36 Labs: Microbiology 07/24/18 09:10 Blood - Peripheral Aerobic Blood Culture - Final No growth in 5 days 07/24/18 09:10 Blood - Peripheral Anaerobic Blood Culture - Final No growth in 5 days 07/24/18 09:20 Blood - Peripheral Aerobic Blood Culture - Final No growth in 5 days 07/24/18 09:20 Blood - Peripheral Anaerobic Blood Culture - Final No growth in 5 days Assessment and Plan Plan 78 yo M who was admitted in a semiconscious state, found to have bilateral pleural effusions, and was in acute hypoxemic, hypercapneic respiratory failure. He was initially admitted to ICU where he was on BIPAP.Chest tubes were inserted by IR. Clinically improved, transferred to [facility] on 07/27. 07/29-clinically improving, breathing remains stable. Acute problems: 1.Acute hypoxemic and hypercapneic respiratory failure/COPD exacerbation/ Pleural effusions/LLL pneumonia-improved. Strep pneumonia, legionella urinary antigen, Nasal washing screening for influenza all negative. blood cultures negative.pleural fluid culture negative so far. Rt chest tube was removed on 07/27. Lt chest tube present, drainage improving, recorded as 50mls in last 24hrs,defer to pulmonary for mx. BIPAP prn resp distress continue bronchodilators,Solumedrol-reduced to q12h, antibiotics(Vanc/Aztreonam/ Metronidazole), Oxygen by nc keep sats >90% 2. Metabolic encephalopathy-resolved. 3.Sepsis-resolved. on antibiotics as above for pneumonia. Debility-PT/OT recommend rehab placement. Chronic stable problems: #HTN-BP within acceptable limits, continue home medication. #Chronic atrial fib-rate controlled. #Hypothyroidism-on synthroid #Hyperlipidemia-cont statin #Super morbid obesity #Schizoaffective disorder-cont home medication. #Alzheimer's Dementia-on Donepezil. DVT ppx.
[2018-07-29] MEDS ORDERED: Pharmacy Ordered Lab Info OTHER ONE (17:45)
[2018-07-29] MEDS: Vancomycin Inj 1,500 MG in Sodium Chlor 0.9% Inj 500 ML IV.SIG SCH (18:37)
[2018-07-29] MEDS: Montelukast 10 MG Tablet PO SCH (20:06)
[2018-07-29] MEDS: Sod Chloride 0.9% Inj 1,000 ML IV.CONT SCH (20:08)
[2018-07-30] MEDS: Heparin - SQ 10,000 UNITS/ML Vial SQ SCH ×2 (01:57→14:44)
[2018-07-30] MEDS: Insulin NovoLOG Aspart Correctional Sugar Inj SQ SCH ×4 (05:39→23:26)
[2018-07-30] MEDS: Levothyroxine 50 MCG Tablet PO SCH (05:39)
[2018-07-30 08:07] LABS: Glomerular Filtration Rate Greater Than 89 mL/min (>89)
[2018-07-30] MEDS: Ferrous Sulfate 325 MG Tablet PO SCH ×3 (08:32→17:10)
[2018-07-30] MEDS: Senna/Docusate Sodium 8.6/50 MG Tablet PO SCH ×2 (08:33→21:53)
[2018-07-30] MEDS: Lisinopril 10 MG Tablet PO SCH (08:33)
[2018-07-30] MEDS: MethylPREDNISolone Sod Succinate Inj 40 MG/ML Vial IV.PUSH SCH ×2 (08:34→21:53)
[2018-07-30] MEDS: QUEtiapine 25 MG Tablet PO SCH ×2 (08:35→21:53)
[2018-07-30] MEDS: Famotidine PF Inj 20 MG/2 ML Vial IV.PUSH SCH ×2 (08:35→21:54)
[2018-07-30] MEDS ORDERED: Pharmacy Ordered Lab Info OTHER ONE (11:45)
--- NOTE | 2018-07-30 14:32 | P.PNIM ---
Subjective Interval history: patient reports shortness of breath has improved. Physical Exam Vital signs: Vital Signs 07/29/18 19:31 07/29/18 20:00 07/29/18 23:45 Temperature 98.2 F 98.1 F Pulse Rate 75 89 84 Respiratory Rate 18 22 26 H Blood Pressure 119/56 L 115/59 L Pulse Oximetry 98 98 97 07/30/18 00:00 07/30/18 03:22 07/30/18 08:00 Temperature 98.2 F 98.0 F Pulse Rate 76 73 Respiratory Rate 20 19 Blood Pressure 134/63 117/57 L Pulse Oximetry 95 97 99 07/30/18 10:18 07/30/18 11:50 Temperature 98.2 F Pulse Rate 83 Respiratory Rate 17 Blood Pressure 121/59 L Pulse Oximetry 98 99 Intake & Output 07/29/18 07/30/18 07/30/18 18:59 06:59 18:59 Intake Total 1300 / 1300 935 / 935 100 / 100 Output Total 1150 / 1150 Balance 1300 / 1300 -215 / -215 100 / 100 Weight 124 kg Intake: IV 1300 / 1300 815 / 815 100 / 100 NS Inj 1,000 ML @ 42 mls/hr IV. 1000 / 1000 CONT .[id number] [facility] Rx#:[id number] Azactam Inj 1,000 MG In NS Inj 100 / 100 200 / 200 100 ML @ 200 mls/hr IV.SIG Q8H [facility] Rx#:[id number] Vancomycin Inj 1,500 MG In NS 515 / 515 Inj 500 ML @ 250 mls/hr IV.SIG Q18H [facility] Rx#:[id number] Flagyl 500 MG Inj 100 ML @ 100 200 / 200 100 / 100 100 / 100 mls/hr IV.SIG Q8H [facility] Rx#: [id number] Oral 120 / 120 Output: Urine Amount (Stoma) 1150 / 1150 Continent Urostomy 1150 / 1150 Other: Date of Last Bowel Movement 07/29/18 07/29/18 Narrative: GENERAL:obese elderly man,laying in bed, not in distress. HEENT:not pale,anicteric,nasal canula in situ. NECK:obese,unable to assess JVD. CARDIOVASCULAR: Regular rate and rhythm without murmurs, gallops, or rubs. CHEST:Lt chest tube noted.CTAB,no wheezes or rales. GASTROINTESTINAL: Abdomen soft, non-tender, nondistended. Normal active bowel sounds MUSCULOSKELETAL: Extremities without clubbing, cyanosis, or edema. NEURO: Alert & Oriented x4 to person, place, time, situation. Moves all ext x4 Results Labs CBC & Chem 7: 07/29/18 06:31 07/30/18 06:55 Labs: Microbiology 07/24/18 09:10 Blood - Peripheral Aerobic Blood Culture - Final No growth in 5 days 07/24/18 09:10 Blood - Peripheral Anaerobic Blood Culture - Final No growth in 5 days 07/24/18 09:20 Blood - Peripheral Aerobic Blood Culture - Final No growth in 5 days 07/24/18 09:20 Blood - Peripheral Anaerobic Blood Culture - Final No growth in 5 days Assessment and Plan Plan 78 yo M who was admitted in a semiconscious state, found to have bilateral pleural effusions, and was in acute hypoxemic&hypercapneic respiratory failure and pneumonia. He was initially admitted to ICU where he was on BIPAP.Chest tubes were inserted by IR. Clinically improved, transferred to [facility] on 07/27. Acute problems: 1.Acute hypoxemic and hypercapneic respiratory failure/COPD exacerbation/ Pleural effusions/LLL pneumonia-improved. Strep pneumonia, legionella urinary antigen, Nasal washing screening for influenza all negative. blood cultures negative.pleural fluid culture negative so far. Rt chest tube was removed on 07/27. Lt chest tube present, drainage 0mls in last 24hrs,repeat CXR today and if no effusion then can clamp tube and consider removal. BIPAP prn resp distress continue bronchodilators,Solumedrol-reduced to q12h,Oxygen by nc keep sats >90% , antibiotics(Vanc/Aztreonam/Metronidazole)--completed 7 days, will dc today. 2. Metabolic encephalopathy-resolved. 3.Sepsis-resolved. on antibiotics as above for pneumonia. Debility-PT/OT recommend rehab placement. Chronic stable problems: #HTN-BP within acceptable limits, continue home medication. #Chronic atrial fib-rate controlled. #Hypothyroidism-on synthroid #Hyperlipidemia-cont statin #Super morbid obesity #Schizoaffective disorder-cont home medication. #Alzheimer's Dementia-on Donepezil. DVT ppx.
[2018-07-30] MEDS: Vancomycin Inj 1,500 MG in Sodium Chlor 0.9% Inj 500 ML IV.SIG SCH (14:43)
--- NOTE | 2018-07-30 15:13 | XR ---
EXAM DATE: 07/30/2018 3:09 PM EST AGE/SEX: 78 years / Male INDICATIONS: Follow-up left pneumothorax. CLINICAL DATA: This is the patient's subsequent encounter. Patient reports that signs and symptoms h ave been present for 1 week and indicates a pain score of 0/10. MEDICAL/SURGICAL HISTORY: . Alzheimer's disease. Chronic obstructive pulmonary disease. Hyperte nsion. . Prostatectomy. COMPARISON: [facility] – [place], CHEST 1V SINGLE AP, 07/26/2018. . FINDINGS: Small bore chest tube is in place on the left. There is no pneumothorax. The heart is enlarged. Pulmonary vascularity is normal. CONCLUSION: Small bore chest tube in place the left without residual pneumothorax. Electronically signed by: Bret Dukes MD Board Certified Radiologist 07/30/2018 3:12 PM EST
--- NOTE | 2018-07-30 15:18 | XR ---
EXAM DATE: 07/30/2018 3:15 PM EST AGE/SEX: 78 years / Male INDICATIONS: Shortness of breath. Evaluate for pleural effusion. CLINICAL DATA: This is the patient's subsequent encounter. Patient reports that signs and symptoms h ave been present for 1 week and indicates a pain score of 0/10. MEDICAL/SURGICAL HISTORY: . Alzheimer's disease. Chronic obstructive pulmonary disease. Hyperte nsion. . Prostatectomy. COMPARISON: [facility] [place]PIRATION [place], 07/30/2018. . FINDINGS: Small bore chest tube persists on the left with minimal consolidative changes in the left base. There is no pneumothorax. Right lung is clear The heart is enlarged Irizarry vascularity is normal. CONCLUSION: There is no pneumothorax. Persistent consolidative changes left base. Electronically signed by: Bret Dukes MD Board Certified Radiologist 07/30/2018 3:17 PM EST
--- NOTE | 2018-07-30 17:01 | XR ---
EXAM DATE: 07/30/2018 4:57 PM EST AGE/SEX: 78 years / Male INDICATIONS: Post left chest tube removal. CLINICAL DATA: This is the patient's subsequent encounter. Patient reports that signs and symptoms h ave been present for 1 week and indicates a pain score of 0/10. MEDICAL/SURGICAL HISTORY: . Alzheimer's disease. Chronic obstructive pulmonary disease. Hyperte nsion. . Prostatectomy. COMPARISON: [facility] – [place], CHEST 1V SINGLE AP, 07/30/2018. . FINDINGS: Interval removal of left-sided chest tube. Persistent pleural-parenchymal opacities in the left lower lung zone. No significant pneumothorax. Mild airspace disease in the right lower lung zone. Cardiac silhouette remains enlarged. Remainder of the exam is unchanged. CONCLUSION: 1. No significant pneumothorax following removal of left-sided chest tube. 2. Stable pleural-parenchymal disease in the left lower lung zone. 3. Mild patchy airspace disease in the right lower lung zone, likely atelectasis. Electronically signed by: Yazan Deleon MD Board Certified Radiologist 07/30/2018 4:59 PM EST
[2018-07-30] MEDS: Sod Chloride 0.9% Inj 1,000 ML IV.CONT SCH ×2 (17:18→21:52)
--- NOTE | 2018-07-30 17:19 | IR ---
EXAM DATE: 07/30/2018 4:58 PM EST AGE/SEX: 78 years / Male INDICATIONS: COMPARISON: No prior exams available for comparison. DEVICE(S): PROCEDURE: 1. Chest tube removal. Using aseptic technique the previously placed chest tube was easily removed in one piece and Vaseline gauze and sterile dressing was applied. Chest radiograph is to be obtained. CONCLUSION: 1. Uncomplicated chest tube removal. Electronically signed by: Duarte Esquivel MD Board Certified Radiologist 07/30/2018 5:18 PM EST
--- NOTE | 2018-07-30 20:26 | P.PNPL ---
Subjective Interval history: 78 YO morbidly obese WM mild sob Chest tube removed Lives in [place] for 5 yrs Unable to ambulate, requires Gaye lift Physical Exam Vital signs: Vital Signs 07/29/18 23:45 07/30/18 00:00 07/30/18 03:22 Temperature 98.2 F Pulse Rate 84 76 Respiratory Rate 26 H 20 Blood Pressure 134/63 Pulse Oximetry 97 95 97 07/30/18 08:00 07/30/18 10:18 07/30/18 11:50 Temperature 98.0 F 98.2 F Pulse Rate 73 83 Respiratory Rate 19 17 Blood Pressure 117/57 L 121/59 L Pulse Oximetry 99 98 99 07/30/18 16:00 Temperature 98.9 F Pulse Rate 80 Respiratory Rate 18 Blood Pressure 116/60 Pulse Oximetry 98 Intake & Output 07/30/18 07/30/18 07/31/18 06:59 18:59 06:59 Intake Total 935 / 935 1160 / 1160 615 / 615 Output Total 1150 / 1150 800 / 800 Balance -215 / -215 360 / 360 615 / 615 Weight 124 kg Intake: IV 815 / 815 200 / 200 615 / 615 Azactam Inj 1,000 MG In NS Inj 200 / 200 100 / 100 100 ML @ 200 mls/hr IV.SIG Q8H [facility] Rx#:[id number] Vancomycin Inj 1,500 MG In NS 515 / 515 515 / 515 Inj 500 ML @ 250 mls/hr IV.SIG Q18H [facility] Rx#:[id number] Flagyl 500 MG Inj 100 ML @ 100 100 / 100 100 / 100 100 / 100 mls/hr IV.SIG Q8H [facility] Rx#: [id number] Oral 120 / 120 960 / 960 Output: Urine Amount (Stoma) 1150 / 1150 800 / 800 Continent Urostomy 1150 / 1150 800 / 800 Other: Date of Last Bowel Movement 07/29/18 07/30/18 # Bowel Movements 3 GENERAL: Obese WM, mild sob SKIN: Warm and dry. HEAD: Normocephalic. EYES: No scleral icterus. No injection or drainage. NECK: Supple, trachea midline. No JVD or lymphadenopathy. CARDIOVASCULAR: Regular rate and rhythm without murmurs, gallops, or rubs. RESPIRATORY: Breath sounds equal bilaterally. No accessory muscle use. GASTROINTESTINAL: Abdomen soft, non-tender, nondistended. MUSCULOSKELETAL: No cyanosis, or edema. BACK: Nontender without obvious deformity. No CVA tenderness. Assessment and Plan - Plan IMPRESSION: Dysnoea Morbid obesity HTN Schizoaffective disorder Pleural eff PLAN: Supplement 02 Cont Abx IV Solumedrol. Monitor BS
[2018-07-30] MEDS: Montelukast 10 MG Tablet PO SCH (21:53)
[2018-07-31] MEDS: Heparin - SQ 10,000 UNITS/ML Vial SQ SCH ×3 (00:27→23:48)
[2018-07-31] MEDS: Levothyroxine 50 MCG Tablet PO SCH (05:06)
[2018-07-31] MEDS: Insulin NovoLOG Aspart Correctional Sugar Inj SQ SCH ×3 (05:06→18:46)
[2018-07-31] MEDS: Vancomycin Inj 1,500 MG in Sodium Chlor 0.9% Inj 500 ML IV.SIG SCH (05:06)
[2018-07-31] MEDS: MethylPREDNISolone Sod Succinate Inj 40 MG/ML Vial IV.PUSH SCH ×3 (09:00→21:05)
[2018-07-31] MEDS: Famotidine PF Inj 20 MG/2 ML Vial IV.PUSH SCH ×3 (09:00→21:05)
[2018-07-31] MEDS: QUEtiapine 25 MG Tablet PO SCH ×2 (09:11→21:06)
[2018-07-31] MEDS: Ferrous Sulfate 325 MG Tablet PO SCH ×3 (09:12→18:45)
[2018-07-31] MEDS: Senna/Docusate Sodium 8.6/50 MG Tablet PO SCH ×2 (09:12→21:05)
[2018-07-31] MEDS: Lisinopril 10 MG Tablet PO SCH (09:12)
[2018-07-31 09:35] LABS: Baso % (Auto) 0.2 % (0.0-2.0); Hematocrit 36.9 % (39.0-51.0); Hemoglobin 12.2 gm/dL (13.0-17.0); Lymph # (Auto) 1.1 th/mm3 (1.0-4.8); Lymph % (Auto) 7.3 % (9.0-44.0); Mean Corpuscular HGB Conc 33.2 % (32.0-36.0); Mean Corpuscular Hemoglobin 30.8 pg (27.0-34.0); Mean Corpuscular Volume 92.7 fL (80.0-100.0); Mean Platelet Volume 8.9 fL (7.0-11.0); Mono # (Auto) 0.6 th/mm3 (0.0-0.9); Mono % (Auto) 3.8 % (0.0-8.0); Neut # (Auto) 13.3 th/mm3 (1.8-7.7); Neut % (Auto) 88.7 % (16.0-70.0); Platelet Count 185 th/mm3 (150-450); Red Blood Count 3.98 mil/mm3 (4.50-5.90); Red Cell Distribution Width 16.5 % (11.6-17.2)
[2018-07-31 09:54] LABS: Calcium 8.1 mg/dL (8.5-10.1); Carbon Dioxide 21.8 meq/L (21.0-32.0); Potassium 3.8 meq/L (3.5-5.1)
[2018-07-31 10:53] LABS: Lymphocytes 5 % (9-44); Metamyelocytes 3 % (0-1); Monocytes 2 % (0-8)
[2018-07-31 10:55] LABS: Platelet Estimate Normal (Normal); Platelet Morphology Normal (Normal)
[2018-07-31] MEDS: Sod Chloride 0.9% Inj 1,000 ML IV.CONT SCH (12:52)
--- NOTE | 2018-07-31 14:02 | P.PNIM ---
Subjective Interval history: Patient is awake and laying in bed. Urostomy tube in place. Says his shortness of breath has improved. Physical Exam Vital signs: Vital Signs 07/30/18 16:00 07/30/18 20:00 07/30/18 23:02 Temperature 98.9 F 98.3 F Pulse Rate 80 70 89 Respiratory Rate 18 17 20 Blood Pressure 116/60 137/58 L Pulse Oximetry 98 98 99 07/31/18 00:00 07/31/18 01:30 07/31/18 08:00 Temperature 97.8 F 97.4 F L Pulse Rate 73 78 Respiratory Rate 17 20 Blood Pressure 109/56 L 125/78 Pulse Oximetry 100 95 97 07/31/18 10:51 Temperature Pulse Rate Respiratory Rate Blood Pressure Pulse Oximetry 97 Intake & Output 07/30/18 07/31/18 07/31/18 18:59 06:59 18:59 Intake Total 1160 / 1160 2855 / 2855 815 / 815 Output Total 800 / 800 375 / 375 Balance 360 / 360 2480 / 2480 815 / 815 Weight 124 kg Intake: IV 200 / 200 2155 / 2155 815 / 815 NS Inj 1,000 ML @ 42 mls/hr IV. 1240 / 1240 300 / 300 CONT .[id number] BRETT Rx#:[id number] Azactam Inj 1,000 MG In NS Inj 100 / 100 200 / 200 100 ML @ 200 mls/hr IV.SIG Q8H BRETT Rx#:[id number] Vancomycin Inj 1,500 MG In NS 515 / 515 515 / 515 Inj 500 ML @ 250 mls/hr IV.SIG Q18H BRETT Rx#:[id number] Flagyl 500 MG Inj 100 ML @ 100 100 / 100 200 / 200 mls/hr IV.SIG Q8H BRETT Rx#: [id number] Oral 960 / 960 700 / 700 Output: Urine 375 / 375 Urine Amount (Stoma) 800 / 800 Continent Urostomy 800 / 800 Other: Date of Last Bowel Movement 07/30/18 07/31/18 # Bowel Movements 3 1 Narrative: Awake and alert S1S1 Decrease breath sounds at the bases No edema of the exts No focal neuro deficits, has motor weakness of b/l lower exts. Results Labs CBC & Chem 7: 07/31/18 09:00 07/31/18 09:00 Imaging Imaging: Impressions Chest X-Ray 07/30/18 00:00 CONCLUSION: There is no pneumothorax. Persistent consolidative changes left base. Chest X-Ray 07/30/18 14:33 CONCLUSION: Small bore chest tube in place the left without residual pneumothorax. Tunnelled Chest Tube Removal 07/30/18 16:00 CONCLUSION: 1. Uncomplicated chest tube removal. Chest X-Ray 07/30/18 16:33 CONCLUSION: 1. No significant pneumothorax following removal of left-sided chest tube. 2. Stable pleural-parenchymal disease in the left lower lung zone. 3. Mild patchy airspace disease in the right lower lung zone, likely atelectasis. Assessment and Plan Plan This patient is a 78 y/o male who was admitted to the ICU and found to have b/l pleural effusions with acute hypoxic, hypercapnic resp failure and PNA. He had chest tubes inserted by IR, clinically he improved and was transferred to the med surg unit under the hospitalist care. on 07/27. 1. Acute hypoxic hypercapnic respiratory failure 2/2 b/l pleural effusions and pna 2. COPD exacerbation Strept, Legionella, Flu, Blood cxs are negative. Pleural fluid cx is negative. Right chest tube removed on 07/27. Left chest tube removed yesterday, cxr shows no pneumothorax. Continue steroids, breathing txs Pulmonary team is following. Back to 2L of supplemental oxygen. Pt says he uses 2-4 L usually. 3. Sepsis 2/ #1 Resolved, on antibiotics for pna. Completed 8 days of antibiotics, will d/c the antibiotics today. 4. Metabolic encephalopathy Resolved Chronic stable problems: #HTN-BP within acceptable limits, continue home medication. #Chronic atrial fib-rate controlled. #Hypothyroidism-on synthroid #Hyperlipidemia-cont statin #Schizoaffective disorder-cont home medication. #Alzheimer's Dementia-on Donepezil. Discharge planning: Will discuss case with case management today regarding possible discharge in the next 24-48 hrs. Will follow up with consultants.
--- NOTE | 2018-07-31 19:44 | P.PNPL ---
Subjective Interval history: 78 YO morbidly obese WM mild sob Chest tube removed Lives in NH for 5 yrs Feels better Denies sob On NC Physical Exam Vital signs: Vital Signs 07/30/18 20:00 07/30/18 23:02 07/31/18 00:00 Temperature 98.3 F 97.8 F Pulse Rate 70 89 73 Respiratory Rate 17 20 17 Blood Pressure 137/58 L 109/56 L Pulse Oximetry 98 99 100 07/31/18 01:30 07/31/18 08:00 07/31/18 10:51 Temperature 97.4 F L Pulse Rate 78 Respiratory Rate 20 Blood Pressure 125/78 Pulse Oximetry 95 97 97 07/31/18 12:00 07/31/18 16:00 Temperature 97.2 F L 97.4 F L Pulse Rate 89 78 Respiratory Rate 20 18 Blood Pressure 96/50 L 128/78 Pulse Oximetry 99 96 Intake & Output 07/31/18 07/31/18 08/01/18 06:59 18:59 06:59 Intake Total 2855 / 2855 1015 / 1015 Output Total 375 / 375 Balance 2480 / 2480 1015 / 1015 Weight 124 kg Intake: IV 2155 / 2155 1015 / 1015 NS Inj 1,000 ML @ 42 mls/hr IV. 1240 / 1240 300 / 300 CONT .[id number] BRETT Rx#:[id number] Azactam Inj 1,000 MG In NS Inj 200 / 200 100 / 100 100 ML @ 200 mls/hr IV.SIG Q8H BRETT Rx#:[id number] Vancomycin Inj 1,500 MG In NS 515 / 515 515 / 515 Inj 500 ML @ 250 mls/hr IV.SIG Q18H BRETT Rx#:[id number] Flagyl 500 MG Inj 100 ML @ 100 200 / 200 100 / 100 mls/hr IV.SIG Q8H BRETT Rx#: [id number] Oral 700 / 700 Output: Urine 375 / 375 Other: Date of Last Bowel Movement 07/31/18 # Bowel Movements 1 1 GENERAL: Morbidly obese WM, NAD SKIN: Warm and dry. HEAD: Normocephalic. EYES: No scleral icterus. No injection or drainage. NECK: Supple, trachea midline. No JVD or lymphadenopathy. CARDIOVASCULAR: Regular rate and rhythm without murmurs, gallops, or rubs. RESPIRATORY: Breath sounds equal bilaterally. No accessory muscle use. GASTROINTESTINAL: Abdomen soft, non-tender, nondistended. MUSCULOSKELETAL: No cyanosis, or edema. BACK: Nontender without obvious deformity. No CVA tenderness. Assessment and Plan - Plan IMPRESSION: Dysnoea Morbid obesity HTN Schizoaffective disorder Pleural eff PLAN: Supplement 02 Cont Abx IV Solumedrol mg q 12 hrs. Monitor BS DC plans underway
[2018-07-31] MEDS: Montelukast 10 MG Tablet PO SCH (21:06)
[2018-08-01] MEDS: Insulin NovoLOG Aspart Correctional Sugar Inj SQ SCH ×2 (00:16→05:35)
[2018-08-01] MEDS: Heparin - SQ 10,000 UNITS/ML Vial SQ SCH (00:17)
[2018-08-01] MEDS: Levothyroxine 50 MCG Tablet PO SCH (05:36)
[2018-08-01 08:40] VITALS: BP 116/58; PULSE 85; RESP 17; TEMP 98.2; O2SAT 98
[2018-08-01] MEDS: MethylPREDNISolone Sod Succinate Inj 40 MG/ML Vial IV.PUSH SCH (09:02)
[2018-08-01] MEDS: Famotidine PF Inj 20 MG/2 ML Vial IV.PUSH SCH (09:03)
[2018-08-01] MEDS: Senna/Docusate Sodium 8.6/50 MG Tablet PO SCH (09:04)
[2018-08-01] MEDS: Lisinopril 10 MG Tablet PO SCH (09:04)
[2018-08-01] MEDS: QUEtiapine 25 MG Tablet PO SCH (09:04)
[2018-08-01] MEDS: Ferrous Sulfate 325 MG Tablet PO SCH (09:04)
--- NOTE | 2018-08-01 09:50 | P.DS ---
DS: Providers Date of admission: 07/24/18 11:21 Primary care physician: UNKNOWN Consults: 07/24/18 11:22 Consult to Palliative Care Stat Consulting Provider: Subha Vilchis For STAT consult, spoke directly to:: Ana Dalal Reason for Consultation: Acute Hypercapneic resp Failure per report DNR. Please evaluate Notified:: Service Spoke with:: Venus Date Notified:: 07/24/18 Time Notified:: 11:32 Ordering Provider: JAIDEN 07/24/18 12:33 Consult to Pulmonology Stat Consulting Provider: Sushma Souza For STAT consult, spoke directly to:: Dr. Varela Preferred Traveling Auditor:: Sushma Souza Reason for Consultation: Complete opacification lung Notified:: Service Spoke with:: Yareli Date Notified:: 07/24/18 Time Notified:: 12:37 Ordering Provider: JAIDEN 07/25/18 15:26 Consult to Hospitalist Routine Consulting Provider: Kavon Valdovinos Reason for Consultation: Patient with acute hypoxemic respiratory failure with large pleural effusion status post thoracostomy tube placement bilateral patient is a DNR doing well on 2 L nasal cannula pulmonology is following Notified:: Service Spoke with:: WENDY Date Notified:: 07/25/18 Time Notified:: 15:41 Comments:: Ordering Provider: JAIDEN 07/31/18 11:43 HUB Only Consult Order Routine Consulting Provider: [facility],Insurance Brief History from admission: This is a 78-year-old morbidly obese male that was found semi-conscious early this a.m. . Patient normally wears BiPAP at night and was found semi-conscious with the mass is not connected to the hose providing oxygen and positive pressure. The patient's O2 saturation upon presentation by EMS was in the 50s. The patient was placed on a nonrebreather mask and the patient's O2 saturation went to 85% the patient was emergently transported to [facility] ED. upon arrival the patient was noted to have documentation from [facility] that he was DNR. Care was stat consulted, as obtained revealed patient was indeed DNR status, continued attempts made by emergency room physician , Dr. Jaime as well as palliative care steam cleaning machine operator Ms. Annamarie Angeles for clarification. imaging and laboratory studies were performed. The patient was noted to be in acute hypercapnic respiratory failure with a pH of 7.10 and a PCO2 of 122 the patient was placed on BiPAP at 100% O2 saturation was approximately 92-93% a CTA Pulmonary was performed stat which revealed large bilateral left pleural effusion and as well as large bilateral right pleural effusion. Patient's medical history also is significant for a history of chronic A. fib rate controlled hypertension, hyperlipidemia,'s schizoaffective disorder, and Alzheimer's disease peer patient also has COPD and has had a history of MRSA. Critical care medicine was consulted CT angios pulmonary results revealed a large pleural effusions per I contacted interventional radiology and spoke with Dr. Lujan plan for placement of bilateral pigtail drains for large pleural effusions. Palliative care was also contacted I spoke with Ms. Annamarie Angeles, they made multiple attempts to communicate with healthcare surrogate. Laboratory results reveal a lactic acidosis the patient was provided empiric antibiotics to include aztreonam, vancomycin and Flagyl. The patient was maintained on BiPAP in the ED, upon my arrival the patient did have spontaneous eye opening when stimulated nodding head to yes and no questions per the patient was on BiPAP 15/5 100% with O2 saturation 92/93%. DS: Summary This patient is a 78 y/o male who was admitted to the ICU and found to have b/l pleural effusions with acute hypoxic, hypercapnic resp failure and PNA. He had chest tubes inserted by IR, clinically he improved and was transferred to the med surg unit under the hospitalist care. on 07/27. 1. Acute hypoxic hypercapnic respiratory failure 2/2 b/l pleural effusions and pna 2. COPD exacerbation Strept, Legionella, Flu, Blood cxs are negative. Pleural fluid cx is negative. Patient initially was in the intensive care unit and had b/l chest tubes placed for the pleural effusions. Right chest tube removed on 07/27. Left chest tube removed two days ago, cxr shows no pneumothorax. Patient is back on 2 L of supplemental oxygen which is his baseline. He will be discharged back to the SNF today. Continue PT/OT at the SNF. Continue albuterol, symbicort, prednisone taper. Patient completed course of antibiotics. 3. Sepsis 2/2 #1 Resolved, completed course of antibiotics. 4. Metabolic encephalopathy 2/2 # 1 Resolved Chronic stable problems: #HTN-BP within acceptable limits, continue home medication. #Chronic atrial fib-rate controlled. Continue aspirin. #Hypothyroidism-on synthroid #Hyperlipidemia-cont statin #Schizoaffective disorder-cont home medication. #Alzheimer's Dementia-on Donepezil. Time Spent with Patient Total time spent providing and/or coordinating discharge services: Exam Narrative Exam Narrative: S1S1 Decrease breath sounds at the bases, no complaints of sob. No edema of the exts No focal neuro deficits, has motor weakness of b/l lower exts. Results Labs on day of discharge: Labs from last 24 hours 08/01/18 07/31/18 07/31/18 04:51 23:48 17:20 WBC Differential Seg Neuts % (Manual) Band Neuts % (Manual) Lymphocytes % (Manual) Monocytes % (Manual) Metamyelocytes % (Man) Abs Neuts (Manual) Platelet Estimate Platelet Morphology Keratocytes Sodium Potassium Chloride Carbon Dioxide Anion Gap BUN Creatinine Estimated GFR POC Glucose 131 H 129 H 139 H Random Glucose Calcium 07/31/18 07/31/18 07/31/18 12:17 09:00 09:00 WBC Differential Manual diff final Seg Neuts % (Manual) 88 H Band Neuts % (Manual) 2 Lymphocytes % (Manual) 5 L Monocytes % (Manual) 2 Metamyelocytes % (Man) 3 H Abs Neuts (Manual) 14.0 H Platelet Estimate Normal Platelet Morphology Normal Keratocytes Occ H Sodium 140 Potassium 3.8 Chloride 110 H Carbon Dioxide 21.8 Anion Gap 8 BUN 25 H Creatinine 0.87 Estimated GFR 85 L POC Glucose 104 Random Glucose 118 H Calcium 8.1 L Preliminary micro results at discharge 07/24/18 18:20 Fungal Culture - Preliminary Other No growth in 1 week Impressions ITS Impressions Chest Tube Insertion 07/24/18 00:00 CONCLUSION: 1. Uncomplicated chest tube placement as above. Head CT 07/24/18 11:15 CONCLUSION: Slight chronic small vessel ischemic and atrophic changes. Chest CTA 07/24/18 11:17 CONCLUSION: 1. The study is negative for pulmonary embolism. 2. White out of the left chest with collapse of the left lung and large left pleural effusion. 3. Large right pleural effusion with associated compressive atelectasis/ infiltrate at the junction with the effusion. Tunnelled Chest Tube Removal 07/30/18 16:00 CONCLUSION: 1. Uncomplicated chest tube removal. Chest X-Ray 07/30/18 16:33 CONCLUSION: 1. No significant pneumothorax following removal of left-sided chest tube. 2. Stable pleural-parenchymal disease in the left lower lung zone. 3. Mild patchy airspace disease in the right lower lung zone, likely atelectasis. Discharge Plan Discharge Disposition Patient Disposition: Discharge to SNF Discharge Condition Condition: Critical Discharge Order Discharge Orders: Discharge Order (Routine); Ordered 08/01/18 Ordered By: Alaina Avendano Physicians Team ED Provider: Nataly Jaime Primary Care Provider: UNKNOWN, Attending Provider: Alaina Avendano Other Providers: Subha Vilchis ; Sushma Souza ; Luc Gatica ; [employer],Insurance Rxs /Orders / Referrals /Forms Prescriptions: New prednisone 10 mg tablet 10 mg PO DAILY Qty: 17 RF: 0 Continue atorvastatin 40 mg Tablet 40 mg PO HS RF: 0 aspirin 81 mg Tablet,Delayed Release (Dr/Ec) 81 mg PO DAILY RF: 0 ipratropium-albuterol 0.5 mg-3 mg(2.5 mg base)/3 mL Solution For Nebulization 3 ml INHALATION QID RF: 0 albuterol sulfate 2.5 mg /3 mL (0.083 %) Solution For Nebulization 2.5 mg INHALATION Q2HR PRN (Reason: Dyspnea) RF: 0 polyvinyl alcohol 1.4 % Drops 2 drp EACH EYE Q4HR PRN (Reason: Dry Eyes) RF: 0 loperamide [Imodium A-D] 2 mg Tablet 2 mg PO DIRECTED PRN (Reason: Diarrhea) RF: 0 magnesium hydroxide [Milk of Magnesia] 400 mg/5 mL Suspension 30 ml PO Q6HR PRN (Reason: Constipation) RF: 0 levothyroxine 50 mcg Tablet 50 mcg PO DAILY RF: 0 lisinopril 10 mg Tablet 10 mg PO DAILY RF: 0 budesonide 0.5 mg/2 mL Suspension For Nebulization 0.5 mg INHALATION Q12H RF: 0 montelukast [Singulair] 10 mg Tablet 10 mg PO QPM RF: 0 polyethylene glycol 3350 [Miralax] 17 gram/dose Powder 17 gm PO DAILY PRN (Reason: Constipation) RF: 0 loratadine [Claritin] 10 mg Tablet 10 mg PO DAILY RF: 0 alum-mag hydroxide-simeth [Mag-Al Plus Extra Strength] 400-400-40 mg/5 mL Suspension 10 ml PO QID RF: 0 quetiapine [Seroquel] 50 mg Tablet 50 mg PO BID RF: 0 ferrous sulfate [FerrouSul] 325 mg (65 mg iron) Tablet 325 mg PO TID RF: 0 folic acid 0.8 mg Capsule 0.4 mg PO DAILY RF: 0 memantine [Namenda] 5 mg Tablet 5 mg PO BID RF: 0 donepezil [Aricept] 23 mg Tablet 23 mg PO HS RF: 0 Referrals: Sushma Souza MD [Physician] - See Instructions [facility],Insurance [Agency] - See Instructions (Follow up with PCP in one week.) UNKNOWN, [Primary Care Provider] - See Instructions Discharge Instructions Additional Instructions: Follow up with pulmonary in one to two weeks. Follow up with pcp in one week. Status ED Status: Left Department
== END 2018-08-01 10:57 | DRG 871 ==
LOC: NEPC 09:16 → NEDA 11:21 → HIMC 17:00 → N07 07-27 21:18
PROVIDERS: ADMIT Hospitalist; ATTEND Hospitalist
CPT/HCPCS: 32555; 32557; 36600; 70450; 71010; 71045; 71275; 76937; 80048; 80053; 80069; 80076; 80202; 81001; 82140; 82150; 82533; 82565; 82805; 82945; 82948; 82962; 83520; 83605; 83615; 83690; 83735; 83880; 83986; 84100; 84155; 84157; 84436; 84443; 84484; 85025; 85610; 85730; 86850; 86900; 86901; 87040; 87070; 87086; 87102; 87205; 87206; 87275; 87276; 87449; 87641; 87804; 89051; 90765; 90775; 92526; 92610; 93005; 94002; 94003; 94640; 94656; 94657; 94664; 94665; 96365; 96375; 97163; 97167; 97530; 99291; C1729; C1769; G0195; J1120; J1644; J1815; J2405; J2920; J3370; J7030; J7040; J7050; Q9967